=== PATIENT | male | born 1950 | race Caucasian/White ===

== ENCOUNTER → 2023-07-17 | Outpatient (REF) | payer MEDICARE, MEDICAID, SELFPAY ==
--- OUTSIDE RECORDS SUMMARY | 2023-07-17 05:06 | XMS RPT_ITS | CCD ---
Author Name Unknown Address [address] [place] [address] Organization [facility] Care Team Providers Care Director Medical Safety Name Role Phone WALKER LONGO Unavailable Unavailable WALKER LONGO Unavailable Unavailable NIDIA GARCIA Unavailable Unavailable Unavailable Primary Care Provider SIERRA Covington Referring Unavailable SIERRA HAY Admitting Unavailable NEDRA WHITE Consulting Unavailable NICKIE FAGAN Attending Unavailable Allergies Allergy Classification Reported Allergen(s) Allergy Type Date of Onset Reaction(s) Facility (1 source) aminolevulinic acid Drug Allergy [facility] Repository (1 source) rescinnamine Drug Allergy [facility] Medications Current Medications Medication Drug Class(es) Dates Sig (Normalized) Sig (Original) folic acid 1 mg oral tablet (4 sources) Start: 06-15-2023 End: 07-01-2024 take 1 tablet by mouth once daily folic acid (Folvite) 1 MG tablet Take 1 tablet (1 mg) by mouth daily. 0 07/02/2023 07/01/2024 Active ibuprofen 600 mg oral tablet (12 sources) Nonsteroidal Anti-inflammatory Drug Start: 07-02-2023 End: 07-12-2023 take 1 tablet by mouth every six hours as needed for headache ibuprofen 600 MG tablet Take 1 tablet (600 mg) by mouth every 6 hours as needed for headaches for up to 10 days. 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, in remission] Onset: 06-15-2023 06-15-2023 Chronic Headache, including migraine (1 source) Headache; Translations: [HEADACHE] Onset: 01-10-2018 Episodic Malaise and fatigue (4 sources) Asthenia; Translations: [Other malaise] Onset: 06-15-2023 06-15-2023 Episodic Other nervous system disorders (4 sources) Metabolic encephalopathy; Translations: [Metabolic encephalopathy] Onset: 06-15-2023 06-15-2023 Chronic Other nervous system disorders (6 sources) Impaired cognition; Translations: [Other symptoms and signs involving cognitive functions and awareness] Onset: 06-15-2023 06-15-2023 Episodic Other nervous system disorders (2 sources) Other symptoms and signs involving cognitive functions and awareness; Translations: [Other symptoms and signs involving cognitive functions and awareness] Onset: 06-13-2023 Episodic Other upper respiratory infections (1 source) Chronic maxillary sinusitis; Translations: [CHRONIC MAXILLARY SINUSITIS] Onset: 01-10-2018 Chronic Residual codes; unclassified (6 sources) Delirium; Translations: [Disorientation, unspecified] Onset: 06-14-2023 06-14-2023 Episodic Residual codes; unclassified (2 sources) Disorientation, unspecified; Translations: [Disorientation, unspecified] Onset: 06-13-2023 Episodic Substance-related disorders (1 source) Nicotine dependence, unspecified, uncomplicated; Translations: [NICOTINE DEPEND UNS UNCOMPLICATED] Onset: 01-10-2018 Chronic Results Test Name Value Interpretation Reference Range Facil ity Vital Signs Date Time Vital Sign Value Performing Clinician Ada fofana 07-02-2023 07:32-0500 Body temperature 97.59 [degF] Elham Estrada DO Work Phone: [facility] [employer] 07-02-2023 07:32-0500 Diastolic blood pressure 82 mm[Hg] Elham Estrada DO Work Phone: [facility] 07-02-2023 07:32-0500 Heart rate 70 /min Elham Estrada DO Work Phone: [facility] 07-02-2023 07:32-0500 Respiratory rate 12 /min Elham Estrada DO Work Phone: [employer] 07-02-2023 07:32-0500 SaO2% (BldA) [Mass fraction] 96 % Elham Estrada DO Work Phone: [employer] 07-02-2023 07:32-0500 Systolic blood pressure 138 mm[Hg] Elham Estrada DO Work Phone: [employer] 06-17-2023 10:00-0500 Body mass index (BMI) [Ratio] 20.08 kg/m2 Elham Estrada DO Work Phone: [employer] 06-17-2023 10:00-0500 Body weight 65.32 kg Elham Estrada DO Work Phone: [employer] 06-17-2023 07:35-0500 Body height 180.3 cm Elham Estrada DO Work Phone: [employer] Encounters Encounter Date Encounter Type Care Provider Facility Start: 06-16-2023 End: 06-16-2023 Evaluation and management of inpatient SIERRA OBI [facility] Start: 06-13-2023 End: 07-02-2023 [facility]: [facility]-13-[facility]23 End: 07-02-2023 Evaluation and management of inpatient Elham Estrada DO Work Phone: [facility] Procedures Date Procedure Procedure Detail Performing Clinician Start: 06-19-2023 Comprehensive metabolic panel Wero hartman MD Work Phone: Start: 06-18-2023 Comprehensive metabolic panel Wero hartman MD Work Phone: Start: 06-17-2023 IR LUMBAR PUNCTURE Kenneth Solo DO Work Phone: Start: 06-17-2023 Cul bact xcpt urine blood/stool aerobic isol Kenneth Solo DO Work Phone: Start: 06-17-2023 Glucose body fluid other than blood Kenneth Solo DO Work Phone: Start: 06-17-2023 Syphilis test non-treponemal antibody qual Kenneth Solo DO Work Phone: Start: 06-17-2023 Comprehensive metabolic panel Wero hartman MD Work Phone: Start: 06-16-2023 Electroencephalogram w/rec awake&drowsy Kenneth Solo DO Work Phone: Start: 06-16-2023 Comprehensive metabolic panel Wero hartman MD Work Phone: Start: 06-15-2023 Mri brain brain stem w/o w/contrast material Kenneth Solo DO Work Phone: Start: 06-15-2023 ETHYL GLUCURONIDE SCREEN, URINE Kenneth Solo DO Work Phone: Start: 06-15-2023 MEDICATION ASSISTED TREATMENT PANEL Kenneth Solo DO Work Phone: Start: 06-15-2023 Urinalysis complete panel - Urine Wero Grant MD Work Phone: Start: 06-15-2023 Urnls dip stick/tablet rgnt auto w/o microscopy Elpidio Sorenson MD Work Phone: Start: 06-15-2023 Assay of ammonia Bradley Millard MD Work Phone: Start: 06-15-2023 Comprehensive metabolic panel Wero hartman MD Work Phone: Start: 06-15-2023 Iaad ia hiv-1 ag w/hiv-1 & hiv-2 antbdy single Kenneth Solo DO Work Phone: Start: 06-15-2023 Syphilis test non-treponemal antibody qual Kenneth Solo DO Work Phone: Start: 06-14-2023 Radiologic examination eye detect foreign body Kenneth Solo DO Work Phone: Start: 06-14-2023 Radiologic exam abdomen 1 view Kenneth kyleieri DO Work Phone: Start: 06-14-2023 Comprehensive metabolic panel Wero hartman MD Work Phone: Start: 06-13-2023 Ct head/brain w/o contrast material Elpidio Sorenson MD Work Phone: Start: 06-13-2023 Blood gases any combination ph pco2 po2 co2 hco3 Elpidio Sorenson MD Work Phone: Start: 06-13-2023 Comprehensive metabolic panel Elpidio Sorenson MD Work Phone: Start: 06-13-2023 Drug test def 1-7 classes Elpidio Sorenson MD Work Phone: Start: 06-13-2023 Radiologic exam chest single view Elpidio Sorenson MD Work Phone: Plan of Treatment Date Care Activity Detail Author Start: 01-18-2023 COVID-19 Vaccine ( season) COVID-19 Vaccine ( season) [facility] Start: 01-18-2023 Influenza vaccination Influenza Vacc ine (#1) [facility] Start: 01-17-2019 Screening for malign ant neoplasm of colon [facility] Start: 2011 RSV Immunization age d 60 or older (1 - 1-dose 60+ series) RSV Immunization aged 60 or older (1 - 1-dose 60+ series) [facility] Start: 11-27-2001 Zoster Vaccines (1 of 2) Zoster Vacc jenelle (1 of 2) [facility] Start: 11-27-1970 DTaP/Tdap/Td Vaccine s (1 - Tdap) DTaP/Tdap/Td Vaccines (1 - Tdap) [facility] Start: 11-27-1970 Hepatitis A Vaccines (1 of 2 - Risk 2-dose series) Hepatitis A Vaccines (1 of 2 - Risk 2-dose series) [facility] Start: 11-27-1969 Hepatitis C screening Hepatitis C Sc reening [facility] Start: 1963 Depression Screening Depression Scre ening [facility] Start: 11-27-1957 Pneumococcal Vaccine : 65+ Years (1 of 2 - PCV) Pneumococcal Vaccine: 65+ Years (1 of 2 - PCV) [facility] Start: 1950 Lipid panel Lipid Panel [facility] Start: 1950 Medicare Advantage A nnual Wellness Visit (AWV) Medicare Advantage Annual Wellness Visit (AWV) [facility] Start: 1950 Screening for malign ant neoplasm of colon [facility] Fungus identified in Unspecified specimen by Culture Fungal Culture Microbiology Pending Discharge 06/17/2023 1:13 PM EST [facility] Work Phone: Immunizations Immunization Date Immunization Notes Care Provider Roberta kuhn 02-02-2021 influenza virus vacc ine, unspecified formulation Elham Estrada DO Work Phone: [facility] Payers Date Payer Category Payer Medicaid [facility] MEDICAID [facility] [employer] MEDICAID ONLY [id number] 2023-Present [address] [place] [address] Medicaid HMO [id number] 2019 Medicare [employer]NA MEDICARE ADVANTAGE [employer] MEDICARE [id number] 2019-Present [address] [address] [place] [address] Medicare HMO [id number] 2019 Medicare [id number] 1958 Unknown [id number] Social History Date Type Detail Facility Tobacco smoking status MOIS Smokes tobacc o daily [facility] History of tobacco use Cigarette Smoker S [facility] Start: 06-13-2023 End: 06-14-2023 History of Social function [facility] Start: 06-13-2023 End: 06-14-2023 Alcohol Use Disorder Identification Test - Consumption [AUDIT-C] [facility] How often to you hav e a drink containing alcohol? Never [facility] How many standard dr inks containing alcohol do you have on a typical day? Patient does not drink [facility] Start: 1950 Sex Assigned At Not on file [facility] Clinical Notes 06-13-2023 to 07-02-2023 Care Coordination - Cass Gallego, MYNOR - 07/02/2023 3:35 PM ESTCare Coordination - MYNOR Barragan - 07/02/2023 3:35 PM ESTCare Coordination - Nahomi Robertson - 07/02/2023 12:36 PM EST Note Date & Type Note Facility 07-02-2023 Note Late entry for 07-02. Referral made to [facility] 07-02-2023 Note Formatting of this n ote might be different from the original. Requested to arrange transport to [facility]. Rashi Buckneryony set up for 3 pm-now 4:30-5 pick up man. Used cot due to delirium on admission, became disoriented at [facility] , cognitive impairment, lacks capacity to make medical decisions, headache of unknown etiology. Updated Ex -Violeta RN, Biomass Technician, [facility] and [facility]. Mcdaniel to contact the building inspector where patient lives to check on rent payments. She will also arrange to take some belongs to the facility. CUSTOMER SERVICE PROFESSIONAL suggested she work with the Mopper at the facility regarding future plans of returning home. Will make a [facility] referral for home assist and potential future Assisted Living. [facility] 07-02-2023 Note Formatting of this n ote might be different from the original. Requested to arrange transport to [facility]. Rashi Julia set up for 3 pm-now 4:30-5 pick up man. Used cot due to delirium on admission, became disoriented at [facility] , cognitive impairment, lacks capacity to make medical decisions, headache of unknown etiology. Updated Ex -KORIN Mcdaniel, Biomass Technician, [facility] and [facility]. Mcdaniel to contact the building inspector where patient lives to check on rent payments. She will also arrange to take some belongs to the facility. CUSTOMER SERVICE PROFESSIONAL suggested she work with the Mopper at the facility regarding future plans of returning home. Will make a [facility] referral for home assist and potential future Assisted Living. [facility] 07-02-2023 Miscellaneous Notes Requested to arrange transport to [facility]. Rashi Dumont set up for 3 pm-now 4:30-5 pick up man. Used cot due to delirium on admission, became disoriented at [facility] , cognitive impairment, lacks capacity to make medical decisions, headache of unknown etiology. Updated Ex -KORIN Mcdaniel, Biomass Technician, [facility] and [facility]. Mcdaniel to contact the building inspector where patient lives to check on rent payments. She will also arrange to take some belongs to the facility. CUSTOMER SERVICE PROFESSIONAL suggested she work with the Mopper at the facility regarding future plans of returning home. Will make a [facility] referral for home assist and potential future Assisted Living. Patient Choice Patient Name: CORY MUELLER Date of : 1950 All Providers Sent Referral Name: [facility] Phone: [phone] Address: [facility] [place] [address] Name: [facility] Phone: [phone] Address: [address] [place] [address] Name: [facility]. Phone: [phone] Address: [address] [place] [address] [facility] Phone: [phone] Address: [address] [place] [address] Name: [facility] Phone: [phone] Address: [address] [place] [address] Name: [facility] Phone: [phone] Address: [address] [place] [address] Name: [facility] Phone: [phone] Address: [address] [place] [address] was entered into [employer] for the [facility]. Discharge med list transmitted to [facility] via [facility] per [facility] request. Chart reviewed. Spoke to patient at bedside re: info that both [facility] and [facility] are able to accept. Patient stated he would prefer [facility]. Facility notified to start auth. Problem: Safety - Adult Goal: Free from fall injury Outcome: Progressing Problem: Neurosensory - Adult Goal: Achieves maximal functionality and self care Outcome: Progressing Problem: Safety - Adult Goal: Free from fall injury Outcome: Adequate for Discharge Problem: Discharge Planning Goal: Discharge to home or other facility with appropriate resources Outcome: Adequate for Discharge Referral placed to [facility] via [facility] per [facility] request. Await review and response regarding ability to accept. TCC notified. Received responses in [facility], [facility] and [facility] are not able to accept. Spoke to patient at bedside and reviewed list. He would like referrals to [facility] Alyssa Ibarra, [facility]. [facility] tasked to place referrals. Problem: Safety - Adult Goal: Free from fall injury Outcome: Progressing Problem: Discharge Planning Goal: Discharge to home or other facility with appropriate resources Outcome: Progressing Problem: Neurosensory - Adult Goal: Achieves stable or improved neurological status Outcome: Progressing Goal: Achieves maximal functionality and self care Outcome: Progressing Problem: Metabolic/Fluid and Electrolytes - Adult Goal: Glucose maintained within prescribed range Outcome: Progressing Problem: Hematologic - Adult Goal: Maintains hematologic stability Outcome: Progressing Referral placed to [facility] per [facility] request. Await review and response regarding ability to accept. TCC notified. Provided patient at bedside a choice list. Discussed with patient need for facility with special care for patients with forgetfulness. He agreed and stated that he would prefer to go to a facility in the [facility]. We reviewed the list and he would like referrals to [facility], [facility]. [facility] tasked to place referrals. VM left with ex-, CHAYO Mcdaniel to discuss facility choices for placement. Left VM this AM to ex- and HCPOA to discuss discuss discharge planning. Problem: Safety - Adult Goal: Free from fall injury Outcome: Progressing Problem: Discharge Planning Goal: Discharge to home or other facility with appropriate resources Outcome: Progressing Spoke to patient at bedside to discuss re: placement in a facility at discharge. Patient stated that he would rather go home to his apartment. After more discussion , he agreed that at this point it may be a safe option 2/2 his forgetfulness. He stated that he would agree to have his ex- Violeta assist him with locations if she would be willing. Left VM with Violeta to discuss. notified of this conversation. Met with patient. He stated he still wanted to name his ex -Violeta Mueller as his HCPOA. Patient completed paperwork with my assistance and explanation of what wording means on the form. Will make copies for patient's chart and provide him the original and copy for Violeta . Will follow. Chart reviewed. Patient is medically stable for discharge however, geriatrics deemed patient lacks decision making capacity for discharge. Per SW note, patient ex- is willing to become patient HCPOA (patient choice) however not the guardian. Patient may need SEE completed for guardianship for placement if med team does not feel patient can discharge home safely. At present , I have been unable to set up home PCP visits. Per med team they will follow patient if discharges home for C. SW and TCC to continue to follow. The patient is Moderately Stable - Low risk of patient condition declining or worsening The patient's goals for the shift include remain safe The clinical goals for the shift include remain safe Problem: Safety - Adult Goal: Free from fall injury Outcome: Progressing Problem: Discharge Planning Goal: Discharge to home or other facility with appropriate resources Outcome: Progressing Contacted ex -Violeta Mueller regarding agreeing to be patient's HCPOA if patient still wanted to name her. She is willing although unwilling to apply for Guardianship. She is also unable to provide ongoing supervision and assistance to patient if returns to his apartment. She doubts patient would agree to ecf placement. Violeta reports patient does have a [id number] lives with patient's sister- Gabriela although they do not get along, have not seen each other for a year and patient denies Sandro is his son. Will ask patient if wants to name Violeta as his HCPOA and if so can assist with paperwork. Will follow. Rn Psychiatric following case for Discharge Needs. Spoke to Dr. Fagan in office today. She stated that [facility] would likely be able to follow patient in the community until a PCP can be established through home visits. Adam Mcguire, tasked in careport with this information so that patient can have HHC at discharge. I placed calls to multiple home visit companies: -[facility] [employer] at [phone] -unable to accept, does not take his insurance -[facility]: [phone] -left -[facility] at [phone] -patient lives out of area/ provided me with number [phone] -spoke to Violeta at above number, who stated patient needs a provider to qualify and he is out of her [place] she transferred me to [facility] to see if they would make an exception to see. Spoke to Gilda who stated an exception to provider rule is unlikely but provided me with number [phone] and stated should talk to Sierra Avendano, the assistant cross country coach. -[facility] [facility] at [phone] -spoke to Violeta. She stated they are at capacity and on an 8 week wait list. I provided her with patient information and Gabriela Mueller's number (sister) for contact if and when they may be able to accept. Patient did not have a phone number in his chart. Number to call and inquire about set up, place on list is [phone]. Chart reviewed. Geriatric MD to see today to assess capacity. Will attempt home visit with new PCP if discharged home. Patient will not be able to have HHC until a PCP is established. Will have SW make DH referral if patient discharged home as well as APS referral if recommended. TCC and SW to continue to follow. Updated patient that his sister is willing to be his HCPOA. He does not want to name her,likely since he can not stay with her he does not want her into his buisiness. Will follow. Chart reviewed. Per SW, patient is unable to move in with his sister however, she is agreeable to being the HCPOA. SW intends to complete. I spoke to patient at bedside about housing. He stated that he would agree to return to his apartment. I discussed with him setting up house calls for his PCP. He agrees. Placed call to [facility] and left VM to set up home visits. TCC and SW to continue to follow Also spoke with sister-Gabriela regarding HCPOA-she is willing. Did explain what all that means and she would be the contact in the future regarding medical issues. Will work with patient on paperwork. Contacted sister- Gabriela Mueller-[phone]. She states she and family have not seen patient in many years. Patient just stopped conversing with them years ago. Patient unable to stay with Gabriela as her grandson-supposedly patient's son lives with her and they would never get along. Gabriela stated ex - Violeta Mueller-(number listed in contacts) was to visit patient at some point. No family even knew patient was in the hospital. Per Violeta, patient has lived in his apartment for years. Sister acknowledges patient uses the bus or walks-has no car. Sister will not be visiting has had recent covid. She does not know why patient has broken ties with family years ago. Will follow. The patient is Moderately Stable - Low risk of patient condition declining or worsening The patient's goals for the shift include remain safe The clinical goals for the shift include remain safe Problem: Safety - Adult Goal: Free from fall injury Outcome: Progressing Problem: Discharge Planning Goal: Discharge to home or other facility with appropriate resources Outcome: Progressing Problem: Problem Interventions Goal: Assess Nutritional Intake Outcome: Progressing Social Work consulted for housing- patient kicked out of his apartment. Reviewed chart, met with patient to discuss. Patient states he was kicked out of his apartment-[facility] in [place] for smoking in his apartment. CUSTOMER SERVICE PROFESSIONAL contacted [employer]-left message. Call received back from Yudith landa to the building inspector-Saloni Nance. Yudith stated patient is not kicked out, only received a warning about smoking in his apartment . Patient states he does not like it there-too many rules and wants to move in with his sister-Gabriela. Patient states Gabriela is planning to visit him today or tomorrow. Will follow and speak with sister tomorrow as well regarding the option of patient moving in with her. Patient to discuss with this with her. Will follow. MD entered room noting that patient is medically stable for discharge. Patient possibly homeless and ? Lacks capacity per MD. Notified SW to verify if patient can return to his apartment. MD to discuss with geriatrics an assessment for capacity to determine if patient will need medical decision maker /guardianship for placement or alternate plan ( if he has capacity) for discharge, ie homeless senior care, medicaid for ECF. TCC to continue to follow. Interventional Radiology Brief Postprocedure Note Procedure: IR lumbar puncture Preprocedure Diagnosis: AMS with unknown cause Postprocedure Diagnosis: no change Staff: Staff Role Emily Irvin, digital marketing specialist Nurse Abraham Deng MD Radiologist Henry Crow, RT (R) Director Of Bands RT Nahid (R) Director Of Bands Description of procedure: fluoroscopically guided lumbar puncture was performed Estimated Blood Loss: Minimal Medications Medications (Filter: Administrations occurring from 1358 to 1358 on 06/17/23) As of 06/17/23 1358 None Specimens 12 mL of colorless CSF were obtained Findings: thecal sac accessed at the L3-L4 level Plan: routine postop care Complications: None Anesthesia: local See detailed result report with images in PACS. The patient tolerated the procedure well without incident or complication and is in stable condition. Abraham Deng MD Interventional Radiology Pager: Chart reviewed. Patient with increased confusion and COLLIER. +Rx for possible meningitis, LP pending. Patient is green slipped. Geriatrics consulted for delirium. PT recommending home independently. Patient may need decision maker and placement if unable to care for self. TCC to continue to follow. Care Managment Initial Assessment Date: 06/14/2023 Patient Name: Cory Mueller : 1950 Patient Information Source of Information: Patient Cognition/Language: WFL - Within Functional Limits, Other (Comment) (? mild confusion new or chronic) Permission given to speak with patient door to door sales representative/caregiver as indicated: (no EC noted. Patient did state that he has a sister Gabriela in [place] and another sister in [place]) Confirmation of Payer with patient/family: Yes Payer Name: [employer] Medicare/U[employer] mycare- medicaid only : No Confirmation of Primary Care Physician: No PCP Seen in last 2 years?: (n/a) Primary Caregiver: Self If assistance needed, confirmed caregiver ready, willing and able to care for patient at discharge: No Confirmed with: Living Arrangements Current Residence: Apartment Number of Floors 1 Number of Entry Steps: (elevator) Bed/Bath Levels: Both first floor Lives with: Alone Support Systems: None Activities of Daily Living Ambulation: Independent Bathing/Dressing: Independent Elimination/Continence/Toileting: Independent Feeding: Independent Who Assists with Activities of Daily Living: Instrumental Activities of Daily Living Prescription Coverage: Yes (patient states he does not take any medications) Pharmacy Used: Medication Management: (n/a) Transportation/Shopping: Independent Transportation Mode: Public transportation (patient states he primarily walks) Needs Assistance with Transportation at Discharge: Yes Meal Preparation: Independent Laundry/Cleaning: Independent Finances/Bill Paying: Independent Communication: Independent Types of Care Services/Equipment Utilized Patient's Goal/Discharge Plan Patient expects to be discharged to: home Discharge Planning Actions: Continue to follow Patient's Choice Rights and [employer] and Collaborative Relationships Disclosed as Indicated for Post-Acute Care: NA Interdisciplinary Team Engagement: Geriatric Assessment Social Work Referral for: Additional Information: Introduced self and role to patient via bedside. Patient admitted for confusion, wandering in the community. Geriatrics consulted. MRI pending. Anticipate discharge in 1-2 days pending medical stability. Patient will need assistance with transport home. Stefanie Lipscomb RN documented in this encounter [facility] 07-02-2023 Note Formatting of this n ote might be different from the original. Patient Choice Patient Name: CORY MUELLER Date of : 1950 All Providers Sent Referral Name: Rosalba Feliciano Phone: [phone] Address: [address] [place] [address] Name: [facility] Phone: [phone] Address: [address] [place] [address] Name: [facility] Phone: [phone] Address: [address] [place] [address] Name: [facility] Phone: [phone] Address: [facility] [place] [address] Name: [facility] Phone: [phone] Address: [address] [address] Name: [facility] Phone: [phone] Address: [address] [facility], [address] [place] [address] Name: [facility] Phone: [phone] Address: [address] [place] [address] [facility] 07-02-2023 Note Formatting of this n ote might be different from the original. Patient Choice Patient Name: CORY MUELLER Date of : 1950 All Providers Sent Referral Name: Rosalba Feliciano Phone: [phone] Address: [address] [place], [place] [id number] Name: [facility] Phone: [phone] Address: [address] [place] [address] Name: [facility] Phone: [phone] Address: [address] [place] [address] Name: [facility] Phone: [phone] Address: [facility] [place] [address] Name: [facility] Phone: [phone] Address: [facility] '[place] [address] Name: [facility] Phone: [phone] Address: [address] [facility], [address] [place] [address] Name: [facility] Phone: [phone] Address: [address] [place] [address] [facility] 07-02-2023 History of Presen t illness Narrative Discharge instructions printed and placed in packet. Patient has no IV. Report called to [facility]. Transport scheduled to come around 1500. Med Team Progress Note Cory Mueller : 1950(72 y.o.) Date: July 02, 2023 Med Team: A Attending: Dr. Fagan Chief Complaint: Confusion and decreased memory Subjective: - Overnight, patient had complaints of headache similar to what he has been experiencing during the day as well as insomnia. Patient given one dose of excedrin for his headache and Seroquel for insomnia - Currently, patient resting comfortably in bed. Continues to report tension like headache that is 6/10 in severity and is stabbing in nature. Patient states the Excedrin helped with his symptoms last night. Continues to endorse poor sleep as well. Still reports good PO intake and denies any acute neurological changes that would be indicative of worsening decline. PRN meds used in last 24hrs: ibuprofen 600 mg PO Review of Systems Constitutional: Negative for chills and fever. Eyes: Negative for photophobia and visual disturbance. Respiratory: Negative for cough, chest tightness and wheezing. Cardiovascular: Negative for chest pain. Gastrointestinal: Negative for abdominal pain, nausea and vomiting. Musculoskeletal: Negative for neck pain and neck stiffness. Neurological: Positive for headaches. Negative for light-headedness. Scheduled Meds:folic acid, 1 mg, Oral, Daily Lidocaine, 1 patch, TransDERmal, Daily melatonin, 5 mg, Oral, Nightly thiamine, 100 mg, Oral, Daily Continuous Infusions: Objective: BP 138/82 (BP Location: Right arm, Patient Position: Lying) Pulse 70 Temp 36.4 C (97.6 F) (Temporal) Resp 12 Ht 5' 11 (1.803 m) Comment: per chart, pt est 6' Wt 144 lb (65.3 kg) SpO2 96% BMI 20.08 kg/m Physical Exam Vitals reviewed. Constitutional: Appearance: Normal appearance. HENT: Head: Normocephalic and atraumatic. Mouth/Throat: Mouth: Mucous membranes are moist. Eyes: General: No scleral icterus. Cardiovascular: Rate and Rhythm: Normal rate and regular rhythm. Heart sounds: No murmur heard. Pulmonary: Effort: Pulmonary effort is normal. No respiratory distress. Breath sounds: No wheezing or rales. Abdominal: General: Abdomen is flat. Bowel sounds are normal. Musculoskeletal: Cervical back: Normal range of motion. Right lower leg: No edema. Left lower leg: No edema. Skin: General: Skin is warm. Neurological: Mental Status: He is alert. Comments: Oriented to person, place, and year today Psychiatric: Mood and Affect: Mood normal. [facility] within last 24 hours Assessment and Plan: Delirium Cognitive impairment - MR brain on 06/15 showed diminished cerebral volume and evidence of chronic white matter small vessel ischemic change without acute intracranial abnormality - EEG 06/16 showed no abnormalities - MMSE 20 on initial evaluation - Vitamin D levels low at 27; otherwise metabolic workup unremarkable - Urine drugs screen positive for THC. Ethyl glucuronide negative. - UA and urine culture show no abnormalities - RPR, VDRL, and HIV antibody both negative - Thiamine 1 mg tablet PO daily - Scheduled nightly melatonin - Delirium and fall precautions in place - Green slipped Lack of capacity - patient does not have capacity per discharge plans per Geriatrics - defer disposition decision making to surrogate decision maker - Ex- is HCPOA - Disposition still in progress Headache of unknown etiology- suspect tension COLLIER based on pt's description of band-like pressure, stable - Patient has been endorsing ongoing headache for the past few days - LP performed 06/17. Meningitis/encephalitis PCR negative. Spinal fluids studies show no abnormalities. - CTH without contrast 06/13/2023 with no evidence acute ICH - PRN 600 mg ibuprofen - Lidocaine patch daily Debility - PT recommending home independently - OT recommending 24 hour supervision or assist - Currently working on arranging safe home going plain with TCC, SW, and geriatrics team - Currently pending placement. Assistance appreciated by CM. Will continue to monitor Insomnia - Patient continues to have insomnia refractory to melatonin - Melatonin 5 mg nightly - Trazodone 50 mg for insomnia - Enforce adequate sleep hygiene - Limit light disturbance between 6525-6532 - Minimize auditory stimulation - Open blinds/turn on lights during the day - Continue to monitor Disposition: Medically stable for discharge. Prior authorization pending for certain facilities. Will follow. - Goals of Care: FULL CODE - DVT Prophylaxis: SCD's or Sequential Compression Device - GI Prophylaxis: Not Indicated - Diet: General Associated attestation - Nickie Fagan DO - 07/02/2023 4:22 PM EST I saw and evaluated the patient. I agree with the findings and plan of care as documented in the resident's note, except as noted in Green text. Patient seen and examined personally (Date of Sevice: 07/02/23) -d/w TCC -reviewed w/pt plan for discharge to SNF today 7AM-5PM: contact resident on [facility] Med A (find by hovering over attending's name on left side of patient's chart) 5PM-7AM: contact AI3 res Was paged by nursing regarding patient's headache. I examined the patient at bedside. Patient resting comfortably on bed, NAD. Endorses 8/10 constant stabbing pain and describes his pain a tight band around his head. Denies any lightheadedness, dizziness, vision changes and light sensitivity. States there are no preceding and exacerbating factors. His headache has been ongoing for couple days now. Had CTH with no acute intracranial processes and LP studies were unremarkable. I discussed trying excedrin with the patient. Patient agreeable with the plan. 1 x dose of excedrin ordered. Med Team Progress Note Cory Perla Julien : 1950(72 y.o.) Date: July 01, 2023 Med Team: Rasta Attending: Dr. Fagan Chief Complaint: Confusion and decreased memory Subjective: - No acute events overnight. - Currently, patient resting comfortably in bed. Continues to endorse headache that is 6/10 in severity and banding in distribution. Reports sleeping somewhat better in the last 24 hours and is able to recall which teams were in the super bowl yesterday. No other complaints were noted on examination PRN meds used in last 24hrs: Ibuprofen 600 mg PO Review of Systems Constitutional: Negative for chills and fever. Cardiovascular: Negative for chest pain. Gastrointestinal: Negative for abdominal pain. Musculoskeletal: Negative for neck pain and neck stiffness. Neurological: Positive for headaches. Negative for light-headedness. Scheduled Meds:folic acid, 1 mg, Oral, Daily Lidocaine, 1 patch, TransDERmal, Daily melatonin, 5 mg, Oral, Nightly thiamine, 100 mg, Oral, Daily Continuous Infusions: Objective: BP 141/69 (BP Location: Left arm, Patient Position: Lying) Pulse 67 Temp 36.7 C (98.1 F) (Temporal) Resp 20 Ht 5' 11 (1.803 m) Comment: per chart, pt est 6' Wt 144 lb (65.3 kg) SpO2 96% BMI 20.08 kg/m Physical Exam Vitals reviewed. Constitutional: Appearance: Normal appearance. HENT: Head: Normocephalic and atraumatic. Mouth/Throat: Mouth: Mucous membranes are moist. Eyes: General: No scleral icterus. Cardiovascular: Rate and Rhythm: Normal rate and regular rhythm. Heart sounds: No murmur heard. Pulmonary: Effort: Pulmonary effort is normal. No respiratory distress. Breath sounds: No wheezing or rales. Abdominal: General: Abdomen is flat. Bowel sounds are normal. Musculoskeletal: Cervical back: Normal range of motion. Right lower leg: No edema. Left lower leg: No edema. Skin: General: Skin is warm. Neurological: Mental Status: He is alert. Comments: Oriented to person, place, and year today Psychiatric: Mood and Affect: Mood normal. [facility] Labs within last 24 hours Assessment and Plan: Delirium Cognitive impairment - MR brain on 06/15 showed diminished cerebral volume and evidence of chronic white matter small vessel ischemic change without acute intracranial abnormality - EEG 06/16 showed no abnormalities - MMSE 20 on initial evaluation - Vitamin D levels low at 27; otherwise metabolic workup unremarkable - Urine drugs screen positive for THC. Ethyl glucuronide negative. - UA and urine culture show no abnormalities - RPR, VDRL, and HIV antibody both negative - Thiamine 1 mg tablet PO daily - Scheduled nightly melatonin - Delirium and fall precautions in place - Green slipped Lack of capacity - patient does not have capacity per discharge plans per Geriatrics - defer disposition decision making to surrogate decision maker - Ex- is HCPOA - Disposition still in progress Headache of unknown etiology- suspect tension COLLIER based on pt's description of band-like pressure, stable - Patient has been endorsing ongoing headache for the past few days - LP performed 06/17. Meningitis/encephalitis PCR negative. Spinal fluids studies show no abnormalities. - CTH without contrast 06/13/2023 with no evidence acute ICH - PRN 600 mg ibuprofen - Lidocaine patch daily Debility - PT recommending home independently - OT recommending 24 hour supervision or assist - Currently working on arranging safe home going plain with TCC, SW, and geriatrics team - Currently pending placement. Assistance appreciated by CM. Will continue to monitor Insomnia - Experienced episode of insomnia on 06/27/23 refractory to sleep hygiene and melatonin - Received 1 dose of Remeron - Melatonin 5 mg nightly - Will continue to monitor - Consider adding on Seroquel if persisting insomnia refractory to melatonin and sleep hygiene - Goals of Care: FULL CODE - DVT Prophylaxis: SCD's or Sequential Compression Device - GI Prophylaxis: Not Indicated - Diet: General Associated attestation - Nickie Fagan DO - 07/01/2023 4:59 PM EST I saw and evaluated the patient. I agree with the findings and plan of care as documented in the resident's note, except as noted in Green text. Patient seen and examined personally during bedside teaching rounds (Date of Service: 07/01/23) -reviewed w/him possible SNF facilities. He communicates just wants to be somewhere in [place] area. Though he does not have decisional capacity regarding is ability to safely live independently in community I do think we should continue to consider his preferences regarding SNF. -D/W TCC 7AM-5PM: contact resident on [facility] Med A (find by hovering over attending's name on left side of patient's chart) 5PM-7AM: contact AI3 res Patient has had trouble sleeping since admission, which is becoming worse/more bothersome. Patient received his scheduled 5 mg of Melatonin, as well as the PRN 3 mg of Melatonin. Patient called nurse in around 4:30 am, stating he has not slept at all and is requesting a different medication to help. Dr Solo was notified via secure chat. A one-time dose of 5 mg of Melatonin was given. Naomy Morse RN Nutrition update completed. Chart reviewed. Patient to be monitored and followed by the diet fingernail technician. Med Team Progress Note Cory Perla Julien : 1950(72 y.o.) Date: June 30, 2023 Med Team: A Attending: Dr. Fagan Chief Complaint: confusion and decreased memory Subjective: Overnight events: NAEON Patient seen this morning mentioned continued bilateral band-like bilateral headache. The pain is chronic and dull and rates it at a 6.5-7/10. Denies vision changes, or any other pain, Review of Systems Constitutional: Negative for chills and fever. Cardiovascular: Negative for chest pain. Gastrointestinal: Negative for abdominal pain. Musculoskeletal: Negative for neck pain and neck stiffness. Neurological: Positive for headaches. Negative for light-headedness. Scheduled Meds:folic acid, 1 mg, Oral, Daily Lidocaine, 1 patch, TransDERmal, Daily melatonin, 5 mg, Oral, Nightly thiamine, 100 mg, Oral, Daily Continuous Infusions: PRN meds used in last 24hrs: None Objective: Last Vitals: BP MAP 124/71 (06/30/23721) 89 (06/30/23721) Arterial BP MAP Temp 36.2 C (97.2 F) (06/30/23721) Pulse 61 (06/30/23721) Resp 20 (06/30/23721) SpO2 97 % (06/30/23721) Weight 144 lb (65.3 kg) (06/17/23 1000) BMI Body mass index is 20.08 kg/m . Oxygen Delivery: Physical Exam Vitals reviewed. Constitutional: Appearance: Normal appearance. HENT: Head: Normocephalic and atraumatic. Mouth/Throat: Mouth: Mucous membranes are moist. Eyes: General: No scleral icterus. Cardiovascular: Rate and Rhythm: Normal rate and regular rhythm. Heart sounds: No murmur heard. Pulmonary: Effort: Pulmonary effort is normal. No respiratory distress. Breath sounds: No wheezing or rales. Abdominal: General: Abdomen is flat. Bowel sounds are normal. Musculoskeletal: Cervical back: Normal range of motion. Right lower leg: No edema. Left lower leg: No edema. Skin: General: Skin is warm. Neurological: Mental Status: He is alert. Comments: Oriented to person, place, and year today Psychiatric: Mood and Affect: Mood normal. Imaging: No new imaging [facility] within last 24 hours- No new labs Assessment and Plan: Disposition: Patient POA difficult to contact. Presented patients with options and assisted him in selection while keeping his best interests in mind. Referrals sent. Medically clear for discharge for many days at this point. Awaiting placement currently. Delirium Cognitive impairment - MR brain on 06/15 showed diminished cerebral volume and evidence of chronic white matter small vessel ischemic change without acute intracranial abnormality - EEG 06/16 showed no abnormalities - MMSE 20 on initial evaluation - Vitamin D levels low at 27; otherwise metabolic workup unremarkable - Urine drugs screen positive for THC. Ethyl glucuronide negative. - UA and urine culture show no abnormalities - RPR, VDRL, and HIV antibody both negative - Thiamine 1 mg tablet PO daily - Scheduled nightly melatonin - Delirium and fall precautions in place - Green slipped Lack of capacity - patient does not have capacity per discharge plans per Geriatrics - defer disposition decision making to surrogate decision maker - Ex- is HCPOA - Disposition still in progress Headache of unknown etiology - suspect tension COLLIER based on pt's description of band-like pressure, stable - LP performed 06/17. Meningitis/encephalitis PCR negative. Spinal fluids studies show no abnormalities. - CTH without contrast 06/13/2023 with no evidence acute ICH - Concern for rebound headache secondary to chronic tylenol use, discontinued with no signs of worsened COLLIER - Lidocaine patch daily Debility - PT recommending home independently - OT recommending 24 hour supervision or assist - Currently working on arranging safe home going plain with TCC, SW, and geriatrics team - Currently pending placement. Assistance appreciated by CM and attending. Will continue to monitor Insomnia - Melatonin 5 mg nightly - Goals of Care: FULL CODE - DVT Prophylaxis: SCD's or Sequential Compression Device - GI Prophylaxis: Not Indicated - Diet: General Disposition: Continue admission to [facility] pending acceptance to SNF Associated attestation - Nickie Fagan DO - 06/30/2023 12:56 PM EST I saw and evaluated the patient. I agree with the findings and plan of care as documented in the resident's note, except as noted in Green text. Patient seen and examined personally during bedside teaching rounds (Date of Service: 06/30/23) -no new complaints. 7AM-5PM: contact resident on [facility] Med A (find by hovering over attending's name on left side of patient's chart) 5PM-7AM: contact AI3 res Med Team Progress Note Cory Mueller : 1950(72 y.o.) Date: June 29, 2023 Med Team: A Attending: Dr. Fagan Chief Complaint: confusion and decreased memory Subjective: Overnight events: NAEOVN Patient seen this morning mentioned continued bilateral band-like bilateral headache. The pain is chronic and dull and rates it at a 7.0 today (does not remember he rated it yesterday at a 6.5). Also continues to endorse sleep difficulties. Mentions ongoing photophobia associated with the headache. COLLIER is not worsened with exertion and no neck pain. Review of Systems Constitutional: Negative for chills and fever. Eyes: Positive for photophobia. Musculoskeletal: Negative for neck pain and neck stiffness. Neurological: Positive for headaches. Negative for light-headedness. Scheduled Meds:folic acid, 1 mg, Oral, Daily Lidocaine, 1 patch, TransDERmal, Daily melatonin, 5 mg, Oral, Nightly thiamine, 100 mg, Oral, Daily Continuous Infusions: PRN meds used in last 24hrs: None Objective: Last Vitals: BP MAP 158/90 (06/29/23716) 113 (06/29/23716) Arterial BP MAP Temp 36.7 C (98 F) (06/29/23716) Pulse 71 (06/29/23716) Resp 20 (06/29/23716) SpO2 97 % (06/29/23716) Weight 144 lb (65.3 kg) (06/17/23 1000) BMI Body mass index is 20.08 kg/m . Oxygen Delivery: Physical Exam Vitals reviewed. Constitutional: Appearance: Normal appearance. HENT: Head: Normocephalic and atraumatic. Mouth/Throat: Mouth: Mucous membranes are moist. Eyes: General: No scleral icterus. Cardiovascular: Rate and Rhythm: Normal rate and regular rhythm. Heart sounds: No murmur heard. Pulmonary: Effort: Pulmonary effort is normal. No respiratory distress. Breath sounds: No wheezing or rales. Abdominal: General: Abdomen is flat. Bowel sounds are normal. Musculoskeletal: Cervical back: Normal range of motion. Right lower leg: No edema. Left lower leg: No edema. Skin: General: Skin is warm. Neurological: Mental Status: He is alert. Comments: Oriented to person, place, and year today Psychiatric: Mood and Affect: Mood normal. Imaging: No new imaging [facility] within last 24 hours- No new labs Assessment and Plan: Disposition: Patient POA difficult to contact. Presented patients with options and assisted him in selection while keeping his best interests in mind. Selection to facilities made yesterday with assistance of Dr. Fagan and MONSTER Lipscomb. Awaiting placement currently. Delirium Cognitive impairment - MR brain on 06/15 showed diminished cerebral volume and evidence of chronic white matter small vessel ischemic change without acute intracranial abnormality - EEG 06/16 showed no abnormalities - MMSE 20 on initial evaluation - Vitamin D levels low at 27; otherwise metabolic workup unremarkable - Urine drugs screen positive for THC. Ethyl glucuronide negative. - UA and urine culture show no abnormalities - RPR, VDRL, and HIV antibody both negative - Thiamine 1 mg tablet PO daily - Scheduled nightly melatonin - Delirium and fall precautions in place - Green slipped Lack of capacity - patient does not have capacity per discharge plans per Geriatrics - defer disposition decision making to surrogate decision maker - Ex- is HCPOA - Disposition still in progress Headache of unknown etiology- suspect tension COLLIER based on pt's description of band-like pressure, stable - Patient has been endorsing ongoing headache for the past few days - LP performed 06/17. Meningitis/encephalitis PCR negative. Spinal fluids studies show no abnormalities. - CTH without contrast 06/13/2023 with no evidence acute ICH - Concern for rebound headache secondary to chronic tylenol use, discontinued with no signs of worsened COLLIER - Lidocaine patch daily Debility - PT recommending home independently - OT recommending 24 hour supervision or assist - Currently working on arranging safe home going plain with TCC, SW, and geriatrics team - Currently pending placement. Assistance appreciated by CM and attending. Will continue to monitor Insomnia - Experienced episode of insomnia on 06/27/23 refractory to sleep hygiene and melatonin - Received 1 dose of Remeron - Melatonin 5 mg nightly - Will continue to monitor - Goals of Care: FULL CODE - DVT Prophylaxis: SCD's or Sequential Compression Device - GI Prophylaxis: Not Indicated - Diet: General Disposition: Continue admission to F pending acceptance to SNF Associated attestation - Nickie Fagan DO - 06/29/2023 1:29 PM EST I saw and evaluated the patient. I agree with the findings and plan of care as documented in the resident's note, except as noted in Green text. Patient seen and examined personally during bedside teaching rounds (Date of Service: 06/29/23) -no new complaints 7AM-5PM: contact resident on [facility] Med A (find by hovering over attending's name on left side of patient's chart) 5PM-7AM: contact AI3 res Med Team Progress Note Cory Mueller : 1950(72 y.o.) Date: June 28, 2023 Med Team: Rasta Attending: Dr. Fagan Chief Complaint: Confusion and decreased memory Subjective: - No acute events overnight. - Currently, patient is resting comfortably in bed. Denies recollection of selecting possible placement for SNF yesterday but seems satisfied with staying close to the [facility]. Patient continues to endorse a headache that is 7/10 in severity and is stabbing in quality. He is endorsing decreased sleep as well and states he only slept a couple hours last night. He denies vision changes, dizziness, or light-headedness. No other complaints noted on examination PRN meds used in last 24hrs: none Review of Systems Constitutional: Negative for appetite change, fatigue and fever. Eyes: Negative for photophobia, pain and visual disturbance. Respiratory: Negative for cough, shortness of breath and wheezing. Cardiovascular: Negative for chest pain and palpitations. Gastrointestinal: Negative for abdominal distention, abdominal pain and nausea. Neurological: Positive for headaches. Negative for dizziness and light-headedness. Scheduled Meds:acetaminophen, 1,000 mg, Oral, Daily folic acid, 1 mg, Oral, Daily Lidocaine, 1 patch, TransDERmal, Daily melatonin, 5 mg, Oral, Nightly thiamine, 100 mg, Oral, Daily Continuous Infusions: Objective: BP 153/90 (BP Location: Right arm, Patient Position: Lying) Pulse 69 Temp 36.8 C (98.2 F) (Temporal) Resp 20 Ht 5' 11 (1.803 m) Comment: per chart, pt est 6' Wt 144 lb (65.3 kg) SpO2 96% BMI 20.08 kg/m Physical Exam Constitutional: General: He is not in acute distress. Appearance: Normal appearance. He is not ill-appearing or toxic-appearing. HENT: Head: Normocephalic and atraumatic. Cardiovascular: Rate and Rhythm: Normal rate and regular rhythm. Pulses: Normal pulses. Heart sounds: Normal heart sounds. No murmur heard. No gallop. Pulmonary: Effort: Pulmonary effort is normal. Breath sounds: Normal breath sounds. No wheezing, rhonchi or rales. Abdominal: General: Abdomen is flat. Palpations: Abdomen is soft. Tenderness: There is no abdominal tenderness. There is no guarding. Skin: General: Skin is warm and dry. Neurological: General: No focal deficit present. Mental Status: He is alert. Sensory: No sensory deficit. Comments: A&Ox2 to person and place Psychiatric: Mood and Affect: Mood normal. Select Labs within last 24 hours Assessment and Plan: Delirium Cognitive impairment - MR brain on 06/15 showed diminished cerebral volume and evidence of chronic white matter small vessel ischemic change without acute intracranial abnormality - EEG 06/16 showed no abnormalities - MMSE 20 on initial evaluation - Vitamin D levels low at 27; otherwise metabolic workup unremarkable - Urine drugs screen positive for THC. Ethyl glucuronide negative. - UA and urine culture show no abnormalities - RPR, VDRL, and HIV antibody both negative - Thiamine 1 mg tablet PO daily - Scheduled nightly melatonin - Delirium and fall precautions in place - Green slipped Lack of capacity - patient does not have capacity per discharge plans per Geriatrics - defer disposition decision making to surrogate decision maker - Ex- is HCPOA - Disposition still in progress Headache of unknown etiology- suspect tension COLLIER based on pt's description of band-like pressure - Patient has been endorsing ongoing headache for the past few days - LP performed 06/17. Meningitis/encephalitis PCR negative. Spinal fluids studies show no abnormalities. - CTH without contrast 06/13/2023 with no evidence acute ICH - Concern for rebound headache secondary to chronic tylenol use - Discontinue tylenol and monitor for symptoms - Lidocaine patch daily Debility - PT recommending home independently - OT recommending 24 hour supervision or assist - Currently working on arranging safe home going plain with TCC, SW, and geriatrics team - Currently pending placement. Assistance appreciated by CM and attending. Will continue to monitor Insomnia - Experienced episode of insomnia on 06/27/23 refractory to sleep hygiene and melatonin - Received 1 dose of Remeron - Melatonin 5 mg nightly - Will continue to monitor Disposition: Patient POA difficult to contact. Presented patients with options and assisted him in selection while keeping his best interests in mind. Selection to facilities made yesterday with assistance of Dr. Fagan and [facility]. Awaiting placement currently. - Goals of Care: FULL CODE - DVT Prophylaxis: SCD's or Sequential Compression Device - GI Prophylaxis: Not Indicated - Diet: General Associated attestation - Nickie Fagan DO - 06/28/2023 5:52 PM EST I saw and evaluated the patient. I agree with the findings and plan of care as documented in the resident's note, except as noted in Green text. Patient seen and examined personally during bedside teaching rounds (Date of Service: 06/28/23) 7AM-5PM: contact resident on [facility] Med A (find by hovering over attending's name on left side of patient's chart) 5PM-7AM: contact AI3 res Med Team Progress Note Cory Mueller : 1950(72 y.o.) Date: June 27, 2023 Med Team: A Attending: Dr. Fagan Chief Complaint: Confusion and decreased memory Subjective: - Overnight, patient had been complaining of insomnia that was not abating with melatonin and proper sleep hygiene. Patient received 7.5 mg Remeron which helped him go to sleep. - Currently, patient resting in bed. He endorses about 1-2 hours of sleep last night and continues to endorse headache that is similar in presentation to previous visits. Patient denies any other complaints upon examination. PRN meds used in last 24hrs: melatonin 3 mg PO Tylenol 650 mg PO Review of Systems Constitutional: Negative for appetite change, fatigue and fever. Respiratory: Negative for chest tightness, shortness of breath and wheezing. Cardiovascular: Negative for chest pain and palpitations. Gastrointestinal: Negative for abdominal pain, diarrhea, nausea and vomiting. Genitourinary: Negative for difficulty urinating, dysuria and hematuria. Neurological: Positive for headaches. Scheduled Meds:acetaminophen, 1,000 mg, Oral, Daily folic acid, 1 mg, Oral, Daily Lidocaine, 1 patch, TransDERmal, Daily melatonin, 5 mg, Oral, Nightly thiamine, 100 mg, Oral, Daily Continuous Infusions: Objective: BP 144/88 (BP Location: Right arm, Patient Position: Sitting) Pulse 80 Temp 36.4 C (97.6 F) (Temporal) Resp 20 Ht 5' 11 (1.803 m) Comment: per chart, pt est 6' Wt 144 lb (65.3 kg) SpO2 99% BMI 20.08 kg/m Physical Exam Constitutional: General: He is not in acute distress. Appearance: Normal appearance. He is not ill-appearing or toxic-appearing. HENT: Head: Normocephalic and atraumatic. Cardiovascular: Rate and Rhythm: Normal rate and regular rhythm. Pulses: Normal pulses. Heart sounds: Normal heart sounds. No murmur heard. No gallop. Pulmonary: Effort: Pulmonary effort is normal. Breath sounds: Normal breath sounds. No wheezing, rhonchi or rales. Abdominal: General: Abdomen is flat. Palpations: Abdomen is soft. Tenderness: There is no abdominal tenderness. There is no guarding. Skin: General: Skin is warm and dry. Neurological: General: No focal deficit present. Mental Status: He is alert. Sensory: No sensory deficit. Comments: A&Ox2 to person and place Psychiatric: Mood and Affect: Mood normal. Select Labs within last 24 hours Assessment and Plan: Delirium Cognitive impairment - MR brain on 06/15 showed diminished cerebral volume and evidence of chronic white matter small vessel ischemic change without acute intracranial abnormality - EEG 06/16 showed no abnormalities - MMSE 20 on initial evaluation - Vitamin D levels low at 27; otherwise metabolic workup unremarkable - Urine drugs screen positive for THC. Ethyl glucuronide negative. - UA and urine culture show no abnormalities - RPR, VDRL, and HIV antibody both negative - Thiamine 1 mg tablet PO daily - Scheduled nightly melatonin - Delirium and fall precautions in place - Discontinued daily labs - Green slipped Lack of capacity - patient does not have capacity per discharge plans per Geriatrics - defer disposition decision making to surrogate decision maker - Ex- is HCPOA - Disposition still in progress Headache of unknown etiology- suspect tension COLLIER based on pt's description of band-like pressure - Patient has been endorsing ongoing headache for the past few days - LP performed 06/17. Meningitis/encephalitis PCR negative. Spinal fluids studies show no abnormalities. - CTH without contrast 06/13/2023 with no evidence o - Tylenol 1,000 mg AM - Additional 650 mg tylenol BID for persistent headaches - Lidocaine patch daily Debility - PT recommending home independently - OT recommending 24 hour supervision or assist - Currently working on arranging safe home going plain with TCC, SW, and geriatrics team - Currently pending placement for SNF with POA assisting with process Insomnia - Experienced episode of insomnia on 06/27/23 refractory to sleep hygiene and melatonin - Received 1 dose of Remeron - Melatonin 5 mg nightly - Will continue to monitor Disposition: Patient POA to assist with placement process for patient post-discharge. Still awaiting placement. Difficulty reaching POA with selection process. - Goals of Care: FULL CODE - DVT Prophylaxis: SCD's or Sequential Compression Device - GI Prophylaxis: Not Indicated - Diet: General Associated attestation - Nickie Fagan DO - 06/27/2023 4:48 PM EST I saw and evaluated the patient. I agree with the findings and plan of care as documented in the resident's note, except as noted in Green text. Patient seen and examined personally (Date of Sevice: 06/27/23) -d/w TCC and Dr. White -pt w/no new complaints. Expressed to me interested in facility in [facility]. List at bedside. Though pt has been found to lack capacity for discharge decisions especially in level of care needed I do think we should consider his desire to remain in [facility]. 7AM-5PM: contact resident on [facility] Med A (find by hovering over attending's name on left side of patient's chart) 5PM-7AM: contact AI3 res Med Team Progress Note Cory Mueller : 1950(72 y.o.) Date: June 26, 2023 Med Team: [facility] Attending: Dr. Fagan Chief Complaint: Confusion and decreased memory Subjective: - No acute events overnight. - Currently, he is resting in bed comfortably. Continues to endorse tension like headache in a banding distribution. His symptoms are persisting despite scheduled tylenol. He denies any other neurological symptoms such as blurry vision, decreased coordination, or difficulty of speech and the severity of the headache is consistent as previous days. Reiterated discussion patient had with case management and is still willing to be placed to facility pending POA decision. No other complaints noted on examination. PRN meds used in last 24hrs: tylenol 650 mg PO Review of Systems Constitutional: Negative for appetite change, fatigue and fever. Respiratory: Negative for chest tightness, shortness of breath and wheezing. Cardiovascular: Negative for chest pain and palpitations. Gastrointestinal: Negative for abdominal pain, diarrhea, nausea and vomiting. Genitourinary: Negative for difficulty urinating, dysuria and hematuria. Scheduled Meds:acetaminophen, 1,000 mg, Oral, Daily folic acid, 1 mg, Oral, Daily Lidocaine, 1 patch, TransDERmal, Daily melatonin, 5 mg, Oral, Nightly thiamine, 100 mg, Oral, Daily Continuous Infusions: Objective: BP 131/70 (BP Location: Left arm, Patient Position: Lying) Pulse 65 Temp 36.4 C (97.5 F) (Temporal) Resp 20 Ht 5' 11 (1.803 m) Comment: per chart, pt est 6' Wt 144 lb (65.3 kg) SpO2 93% BMI 20.08 kg/m Physical Exam Constitutional: General: He is not in acute distress. Appearance: Normal appearance. He is not ill-appearing or toxic-appearing. HENT: Head: Normocephalic and atraumatic. Cardiovascular: Rate and Rhythm: Normal rate and regular rhythm. Pulses: Normal pulses. Heart sounds: Normal heart sounds. No murmur heard. No gallop. Pulmonary: Effort: Pulmonary effort is normal. Breath sounds: Normal breath sounds. No wheezing, rhonchi or rales. Abdominal: General: Abdomen is flat. Palpations: Abdomen is soft. Tenderness: There is no abdominal tenderness. There is no guarding. Skin: General: Skin is warm and dry. Neurological: General: No focal deficit present. Mental Status: He is alert. Sensory: No sensory deficit. Comments: A&Ox2 to person and place Psychiatric: Mood and Affect: Mood normal. Select Labs within last 24 hours Assessment and Plan: Delirium Cognitive impairment - MR brain on 06/15 showed diminished cerebral volume and evidence of chronic white matter small vessel ischemic change without acute intracranial abnormality - EEG 06/16 showed no abnormalities - MMSE 20 on initial evaluation - Vitamin D levels low at 27; otherwise metabolic workup unremarkable - Urine drugs screen positive for THC. Ethyl glucuronide negative. - UA and urine culture show no abnormalities - RPR, VDRL, and HIV antibody both negative - Thiamine 1 mg tablet PO daily - Scheduled nightly melatonin - Delirium and fall precautions in place - Discontinued daily labs - Green slipped Lack of capacity - patient does not have capacity per discharge plans per Geriatrics - defer disposition decision making to surrogate decision maker - Ex- is HCPOA - Disposition still in progress Headache of unknown etiology- suspect tension COLLIER based on pt's description of band-like pressure - Patient has been endorsing ongoing headache for the past few days - LP performed 06/17. Meningitis/encephalitis PCR negative. Spinal fluids studies show no abnormalities. - CTH without contrast 06/13/2023 with no evidence o - Tylenol 1,000 mg AM - Additional 650 mg tylenol BID for persistent headaches - Lidocaine patch daily - Will attempt Toradol 15 mg IV with Reglan 10 mg IV to break headache Debility - PT recommending home independently - OT recommending 24 hour supervision or assist - Currently working on arranging safe home going plain with TCC, SW, and geriatrics team - Currently pending placement for SNF with POA assisting with process Disposition: Patient POA to assist with placement process for patient post-discharge. Still awaiting placement - Goals of Care: FULL CODE - DVT Prophylaxis: SCD's or Sequential Compression Device - GI Prophylaxis: Not Indicated - Diet: General Associated attestation - Nickie Fagan DO - 06/26/2023 3:03 PM EST I saw and evaluated the patient. I agree with the findings and plan of care as documented in the resident's note, except as noted in Green text. Patient seen and examined personally during bedside teaching rounds (Date of Service: 06/26/23) -ongoing tension type COLLIER. Agree w/trial COLLIER cocktail to see if can improve symptoms 7AM-5PM: contact resident on [facility] Med A (find by hovering over attending's name on left side of patient's chart) 5PM-7AM: contact AI3 res Nutrition update completed. Chart reviewed. Patient to be monitored and followed by the diet fingernail technician. Med Team Progress Note Cory Mueller : 1950(72 y.o.) Date: June 25, 2023 Med Team: Rasta Attending: Dr. Fagan Chief Complaint: Confusion and decreased memory Subjective: - No acute events overnight. - Currently, patient resting comfortably in bed. Describes vaguely remembering signing paperwork regarding POA process but when asked about specific details about what a POA is he was unable to recall. Patient continues to endorse headache but its hard to assess progression of symptoms day by day given memory impairment PRN meds used in last 24hrs: tylenol 650 mg PO Review of Systems Constitutional: Negative for appetite change, fatigue and fever. Respiratory: Negative for chest tightness, shortness of breath and wheezing. Cardiovascular: Negative for chest pain and palpitations. Gastrointestinal: Negative for abdominal pain, diarrhea, nausea and vomiting. Endocrine: Negative for heat intolerance, polyphagia and polyuria. Genitourinary: Negative for difficulty urinating, dysuria and hematuria. Musculoskeletal: Negative for arthralgias, joint swelling and myalgias. Neurological: Positive for headaches. Patient endorsing tension like headache with banding pain around his head Scheduled Meds:acetaminophen, 1,000 mg, Oral, Daily folic acid, 1 mg, Oral, Daily melatonin, 5 mg, Oral, Nightly thiamine, 100 mg, Oral, Daily Continuous Infusions: Objective: BP 136/79 (BP Location: Right arm, Patient Position: Sitting) Pulse 76 Temp 36.4 C (97.5 F) (Temporal) Resp 18 Ht 5' 11 (1.803 m) Comment: per chart, pt est 6' Wt 144 lb (65.3 kg) SpO2 95% BMI 20.08 kg/m Physical Exam Constitutional: General: He is not in acute distress. Appearance: Normal appearance. He is not ill-appearing or toxic-appearing. HENT: Head: Normocephalic and atraumatic. Cardiovascular: Rate and Rhythm: Normal rate and regular rhythm. Pulses: Normal pulses. Heart sounds: Normal heart sounds. No murmur heard. No gallop. Pulmonary: Effort: Pulmonary effort is normal. Breath sounds: Normal breath sounds. No wheezing, rhonchi or rales. Abdominal: General: Abdomen is flat. Palpations: Abdomen is soft. Tenderness: There is no abdominal tenderness. There is no guarding. Skin: General: Skin is warm and dry. Neurological: General: No focal deficit present. Mental Status: He is alert. Sensory: No sensory deficit. Comments: A&Ox2 to person and place Psychiatric: Mood and Affect: Mood normal. Select Labs within last 24 hours Assessment and Plan: Delirium Cognitive impairment - MR brain on 06/15 showed diminished cerebral volume and evidence of chronic white matter small vessel ischemic change without acute intracranial abnormality - EEG 06/16 showed no abnormalities - MMSE 20 on initial evaluation - Vitamin B12, TSH, and free T4 WNL - Vitamin D levels low at 27 - Urine drugs screen positive for THC. Ethyl glucuronide negative. - UA and urine culture show no abnormalities - RPR, VDRL, and HIV antibody both negative - Thiamine 1 mg tablet PO daily - Scheduled nightly melatonin - Delirium and fall precautions in place - Discontinued daily labs - Green slipped Lack of capacity - patient does not have capacity per discharge plans per Geriatrics - defer disposition decision making to surrogate decision maker - Ex- is HCPOA - Disposition still in progress Headache of unknown etiology- suspect tension COLLIER based on pt's description of band-like pressure - Patient has been endorsing ongoing headache for the past few days - LP performed 06/17. Meningitis/encephalitis PCR negative. Spinal fluids studies show no abnormalities. - CTH without contrast 06/13/2023 with no evidence o - Tylenol 1,000 mg AM - Additional 650 mg tylenol BID for persistent headaches - Lidocaine patch Debility - PT recommending home independently - OT recommending 24 hour supervision or assist - Currently working on arranging safe home going plain with TCC, SW, and geriatrics team - Currently pending placement for SNF Disposition: Patient recently elected ex- to be POA. Disposition still pending per discussion with POA. Patient prefers SNF and will discuss with ex- to help with decision making. - Goals of Care: FULL CODE - DVT Prophylaxis: SCD's or Sequential Compression Device - GI Prophylaxis: Not Indicated - Diet: General Associated attestation - Nickie Fagan DO - 06/25/2023 6:21 PM EST I saw and evaluated the patient. I agree with the findings and plan of care as documented in the resident's note, except as noted in Green text. Patient seen and examined personally (Date of Sevice: 06/25/23) 7AM-5PM: contact resident on [facility] Med A (find by hovering over attending's name on left side of patient's chart) 5PM-7AM: contact AI2 res Med Team Progress Note Cory Mueller : 1950(72 y.o.) Date: June 24, 2023 Med Team: A Attending: Dr. Fagan Chief Complaint: Confusion and decreased memory Subjective: - No acute events overnight. - Currently, patient resting comfortably in bed and reports improvement in his headache symptoms. Still unable to recall events from the day prior but still expresses to have his exwife as POA when asked without prompting. Patient has no other complaints on examination. PRN meds used in last 24hrs: Melatonin and tylenol Review of Systems Constitutional: Negative for appetite change, fatigue and fever. Respiratory: Negative for chest tightness, shortness of breath and wheezing. Cardiovascular: Negative for chest pain and palpitations. Gastrointestinal: Negative for abdominal pain, diarrhea, nausea and vomiting. Endocrine: Negative for heat intolerance, polyphagia and polyuria. Genitourinary: Negative for difficulty urinating, dysuria and hematuria. Musculoskeletal: Negative for arthralgias, joint swelling and myalgias. Neurological: Positive for headaches. Patient endorsing tension like headache with banding pain around his head Scheduled Meds:acetaminophen, 1,000 mg, Oral, Daily folic acid, 1 mg, Oral, Daily melatonin, 5 mg, Oral, Nightly [START ON 06/25/2023] thiamine, 100 mg, Oral, Daily Continuous Infusions: Objective: BP 126/71 Pulse 69 Temp 36.8 C (98.3 F) (Temporal) Resp 20 Ht 5' 11 (1.803 m) Comment: per chart, pt est 6' Wt 144 lb (65.3 kg) SpO2 96% BMI 20.08 kg/m Physical Exam Constitutional: General: He is not in acute distress. Appearance: Normal appearance. He is not ill-appearing or toxic-appearing. HENT: Head: Normocephalic and atraumatic. Cardiovascular: Rate and Rhythm: Normal rate and regular rhythm. Pulses: Normal pulses. Heart sounds: Normal heart sounds. No murmur heard. No gallop. Pulmonary: Effort: Pulmonary effort is normal. Breath sounds: Normal breath sounds. No wheezing, rhonchi or rales. Abdominal: General: Abdomen is flat. Palpations: Abdomen is soft. Tenderness: There is no abdominal tenderness. There is no guarding. Skin: General: Skin is warm and dry. Neurological: General: No focal deficit present. Mental Status: He is alert. Sensory: No sensory deficit. Comments: A&Ox2 to person and place Psychiatric: Mood and Affect: Mood normal. Select Labs within last 24 hours Assessment and Plan: Delirium Cognitive impairment - MR brain on 06/15 showed diminished cerebral volume and evidence of chronic white matter small vessel ischemic change without acute intracranial abnormality - EEG 06/16 showed no abnormalities - MMSE 20 on initial evaluation - Vitamin B12, TSH, and free T4 WNL - Vitamin D levels low at 27 - Urine drugs screen positive for THC. Ethyl glucuronide negative. - UA and urine culture show no abnormalities - RPR, VDRL, and HIV antibody both negative - Thiamine 1 mg tablet PO daily - Scheduled nightly melatonin - Delirium and fall precautions in place - Discontinued daily labs - Green slipped Lack of capacity - patient does not have capacity per discharge plans per Geriatrics - defer disposition decision making to surrogate decision maker - Recommend pursuing guardianship - Possibility that ex-spouse can possibly be POA for patient in future - pending Headache of unknown etiology- suspect tension COLLIER based on pt's description of band-like pressure - Patient has been endorsing ongoing headache for the past few days - LP performed 06/17. Meningitis/encephalitis PCR negative. Spinal fluids studies show no abnormalities. - CTH without contrast 06/13/2023 with no evidence o - Tylenol 1,000 mg AM - Additional 650 mg tylenol BID for persistent headaches Debility - PT recommending home independently - OT recommending 24 hour supervision or assist - Currently working on arranging safe home going plain with TCC, SW, and geriatrics team - Goals of Care: FULL CODE - DVT Prophylaxis: SCD's or Sequential Compression Device - GI Prophylaxis: Not Indicated - Diet: General Associated attestation - Nickie Fagan DO - 06/24/2023 5:30 PM EST I saw and evaluated the patient. I agree with the findings and plan of care as documented in the resident's note, except as noted in Green text. Patient seen and examined personally at around 1300 (Date of Service: 06/24/23) -D/W TCC -appreciate TCC/SW help w/dispo planning. -pt agreeable to care. Very apathetic likely 2/2 dementia. Has made no attempt to leave and not asked me about leaving. Clearly lacks ability to be safe unsupervised in apt alone. 7AM-5PM: contact resident on [facility] Med A (find by hovering over attending's name on left side of patient's chart) 5PM-7AM: contact AI2 res Med Team Progress Note Cory Mueller : 1950(72 y.o.) Date: June 23, 2023 Med Team: [facility] Attending: Dr. Candelario Chief Complaint: Confusion and decreased memory Subjective: - No acute events overnight. - Currently, patient resting comfortably in bed. Patient has no recollection about the POA discussion we had the day before. Without prompting the patient I asked him who he would choose if someone needed make decisions on his behalf if he were unable to which he responded with his ex-. While on team rounds he was asked the same question by Dr. Candelario and gave the same answer. This multiple questioning over his potential POA shows consistency in who he would want to choose and who he has mentioned in meetings with SW. PRN meds used in last 24hrs: melatonin 3 mg PO tablet Pt seen and examined earlier today on bedside resident teaching rounds. Hx and PE independently obtained; agree with above. Review of Systems Constitutional: Negative for appetite change, fatigue and fever. Respiratory: Negative for chest tightness, shortness of breath and wheezing. Cardiovascular: Negative for chest pain and palpitations. Gastrointestinal: Negative for abdominal pain, diarrhea, nausea and vomiting. Endocrine: Negative for heat intolerance, polyphagia and polyuria. Genitourinary: Negative for difficulty urinating, dysuria and hematuria. Musculoskeletal: Negative for arthralgias, joint swelling and myalgias. Neurological: Positive for headaches. Patient endorsing tension like headache with banding pain around his head Agree. Scheduled Meds:acetaminophen, 1,000 mg, Oral, Daily folic acid, 1 mg, Oral, Daily melatonin, 5 mg, Oral, Nightly thiamine (Vitamin B1) 250 mg in sodium chloride 0.9 % 100 mL IVPB, 250 mg, IntraVENous, Daily [START ON 06/25/2023] thiamine, 100 mg, Oral, Daily Continuous Infusions: Objective: BP 148/85 Pulse 77 Temp 36.1 C (96.9 F) (Temporal) Resp 20 Ht 5' 11 (1.803 m) Comment: per chart, pt est 6' Wt 144 lb (65.3 kg) SpO2 97% BMI 20.08 kg/m Physical Exam Constitutional: General: He is not in acute distress. Appearance: Normal appearance. He is not ill-appearing or toxic-appearing. HENT: Head: Normocephalic and atraumatic. Cardiovascular: Rate and Rhythm: Normal rate and regular rhythm. Pulses: Normal pulses. Heart sounds: Normal heart sounds. No murmur heard. No gallop. Pulmonary: Effort: Pulmonary effort is normal. Breath sounds: Normal breath sounds. No wheezing, rhonchi or rales. Abdominal: General: Abdomen is flat. Palpations: Abdomen is soft. Tenderness: There is no abdominal tenderness. There is no guarding. Skin: General: Skin is warm and dry. Neurological: General: No focal deficit present. Mental Status: He is alert. Sensory: No sensory deficit. Comments: A&Ox2 to person and place Psychiatric: Mood and Affect: Mood normal. A&Ox3. Cooperative. Makes good eye contact. HEENT- MMM. Neck-supple Ext- no edema. Select Labs within last 24 hours Assessment and Plan: Delirium Cognitive impairment - MR brain on 06/15 showed diminished cerebral volume and evidence of chronic white matter small vessel ischemic change without acute intracranial abnormality - EEG 06/16 showed no abnormalities - MMSE 20 on initial evaluation - Vitamin B12, TSH, and free T4 WNL - Vitamin D levels low at 27 - Urine drugs screen positive for THC. Ethyl glucuronide negative. - UA and urine culture show no abnormalities - RPR, VDRL, and HIV antibody both negative - Thiamine 1 mg tablet PO daily - Scheduled nightly melatonin - Delirium and fall precautions in place - Discontinued daily labs - Green slipped Agree. Lack of capacity - patient does not have capacity per discharge plans per Geriatrics - defer disposition decision making to surrogate decision maker - Recommend pursuing guardianship - Possibility that ex-spouse can possibly be POA for patient in future - pending Agree. Would pursue HCPOA tomorrow/Saturday and ask SW to assist. Pt has been very consistent in his request to have his ex- be his surrogate decision maker. Headache of unknown etiology- suspect tension COLLIER based on pt's description of band-like pressure - Patient has been endorsing ongoing headache for the past few days - LP performed 06/17. Meningitis/encephalitis PCR negative. Spinal fluids studies show no abnormalities. - CTH without contrast 06/13/2023 with no evidence o - Tylenol 1,000 mg AM - Additional 650 mg tylenol BID for persistent headaches Agree. Debility - PT recommending home independently - OT recommending 24 hour supervision or assist - Currently working on arranging safe home going plain with TCC, SW, and geriatrics team - Goals of Care: FULL CODE - DVT Prophylaxis: SCD's or Sequential Compression Device - GI Prophylaxis: Not Indicated - Diet: General Attending Supervising Physician's Attestation Statement for Progress Note I performed a history and physical examination on the patient and discussed the management with the resident physician. I reviewed and agree with the findings and plan as documented in their note except as amended in green font. Addendums may have been dictated using the MyDocTime Voice Recognition Feature. The document was proofread; however, unrecognized voice recognition training administrator errors may be present. Please note, the time of this note does not reflect the time I saw this patient today, but the time of this documentaton. Discussed with: [x]Residents [x]Patient []Family [x]RN []Consultants []SW/TCC [] PT/OT []Pharmacist []Other Reviewed: [x]Epic notes []Radiology studies []Labs []EKG []Other Subsequent Inpatient/OBS: Spent total time 25 minutes counseling or coordinating care, and discussion regarding dispo plans, HCPOA plans with med team. 7AM-5PM: contact resident on [facility] Med Team (found by hovering over attending's name on left side of patient's chart) 5PM-7AM: contact AI3 resident Med Team Progress Note Cory Mueller : 1950(72 y.o.) Date: June 22, 2023 Med Team: [facility] Attending: Dr. Candelario Chief Complaint: Confusion and Decreased memory Subjective: - No acute events overnight. - Currently, patient resting comfortably in bed. Attempted to engage patient about recent decision to allow his ex- to be his HCPOA however in the morning he was unable to recall. During team rounds Dr. Candelario asked him again and he was able to somewhat remember having a discussion about it and when asked who he would choose to be his POA he instantly stated his ex- without prompting. Patient was able to repeat what a HCPOA is and was somewhat able to recall the conversation a few minutes after. No other complaints were noted on examination PRN meds used in last 24hrs: none Pt seen and examined earlier today on bedside resident teaching rounds. Hx and PE independently obtained. Agree with above. Spent time educating pt per what HCPOA means and pt was able to teach back. Endorsed ex- Violeta Julien. Review of Systems Constitutional: Negative for appetite change, fatigue and fever. Respiratory: Negative for chest tightness, shortness of breath and wheezing. Cardiovascular: Negative for chest pain and palpitations. Gastrointestinal: Negative for abdominal pain, diarrhea, nausea and vomiting. Endocrine: Negative for heat intolerance, polyphagia and polyuria. Genitourinary: Negative for difficulty urinating, dysuria and hematuria. Musculoskeletal: Negative for arthralgias, joint swelling and myalgias. Neurological: Positive for headaches. Patient endorsing tension like headache with banding pain around his head Agree. Did not c/o COLLIER during teaching rounds. Scheduled Meds:acetaminophen, 1,000 mg, Oral, Daily folic acid, 1 mg, Oral, Daily melatonin, 5 mg, Oral, Nightly thiamine (Vitamin B1) 250 mg in sodium chloride 0.9 % 100 mL IVPB, 250 mg, IntraVENous, Daily [START ON 06/25/2023] thiamine, 100 mg, Oral, Daily Objective: BP 139/63 Pulse 66 Temp 36.8 C (98.3 F) (Temporal) Resp 18 Ht 5' 11 (1.803 m) Comment: per chart, pt est 6' Wt 144 lb (65.3 kg) SpO2 98% BMI 20.08 kg/m Physical Exam Constitutional: General: He is not in acute distress. Appearance: Normal appearance. He is not ill-appearing or toxic-appearing. HENT: Head: Normocephalic and atraumatic. Cardiovascular: Rate and Rhythm: Normal rate and regular rhythm. Pulses: Normal pulses. Heart sounds: Normal heart sounds. No murmur heard. No gallop. Pulmonary: Effort: Pulmonary effort is normal. Breath sounds: Normal breath sounds. No wheezing, rhonchi or rales. Abdominal: General: Abdomen is flat. Palpations: Abdomen is soft. Tenderness: There is no abdominal tenderness. There is no guarding. Skin: General: Skin is warm and dry. Neurological: General: No focal deficit present. Mental Status: He is alert. Sensory: No sensory deficit. Comments: A&Ox2 to person and place Psychiatric: Mood and Affect: Mood normal. A&O to hospital and name. Cooperative. Makes good eye contact. Speaking in full sentences. Believes he is in hospital due to his poor memory. [facility] Labs within last 24 hours Assessment and Plan: Delirium Cognitive impairment - MR brain on 06/15 showed diminished cerebral volume and evidence of chronic white matter small vessel ischemic change without acute intracranial abnormality - EEG 06/16 showed no abnormalities - MMSE 20 on initial evaluation - Vitamin B12, TSH, and free T4 WNL - Vitamin D levels low at 27 - Urine drugs screen positive for THC. Ethyl glucuronide negative. - UA and urine culture show no abnormalities - RPR, VDRL, and HIV antibody both negative - 1,000 mg thiamine infusion followed by 750 IV infusion - Once administered start PO 1 mg tablet daily - Scheduled nightly melatonin - Delirium and fall precautions in place - Discontinued daily labs - Green slipped Agree. Lack of capacity - patient does not have capacity per discharge plans per Geriatrics - defer disposition decision making to surrogate decision maker - Recommend pursuing guardianship - Possibility that ex-spouse can possibly be POA for patient in future - pending Agree. Will again review with pt in morning. If he can consistently endorse ex- as HCPOA and teach back again the significance, will ask SW to assist in HCPOA execution. Headache of unknown etiology- suspect tension COLLIER based on pt's description of band-like pressure - Patient has been endorsing ongoing headache for the past few days - LP performed 06/17. Meningitis/encephalitis PCR negative. Spinal fluids studies show no abnormalities. - CTH without contrast 06/13/2023 with no evidence o - Tylenol 1,000 mg AM Debility - PT recommending home independently - OT recommending 24 hour supervision or assist - Currently working on arranging safe home going plain with TCC, SW, and geriatrics team - Goals of Care: FULL CODE - DVT Prophylaxis: SCD's or Sequential Compression Device - GI Prophylaxis: Not Indicated - Diet: General Attending Supervising Physician's Attestation Statement for Progress Note I performed a history and physical examination on the patient and discussed the management with the resident physician. I reviewed and agree with the findings and plan as documented in their note except as amended in green font. Addendums may have been dictated using the MyDocTime Voice Recognition Feature. The document was proofread; however, unrecognized voice recognition training administrator errors may be present. Please note, the time of this note does not reflect the time I saw this patient today, but the time of this documentaton. Discussed with: [x]Residents [x]Patient []Family []RN []Consultants []SW/TCC [] PT/OT []Pharmacist []Other Reviewed: [x]Epic notes []Radiology studies []Labs []EKG []Other Subsequent Inpatient/OBS: Spent total time25 minutes counseling or coordinating care, and discussion regarding discussion of HCPOA meaning and pt's choice. 7AM-5PM: contact resident on [facility] Med Team (found by hovering over attending's name on left side of patient's chart) 5PM-7AM: contact AI3 resident Med Team Progress Note Cory Mueller : 1950(72 y.o.) Date: June 21, 2023 Med Team: A Attending: Dr. Fagan Chief Complaint: Confusion and decreased memory Subjective: - No acute events overnight. - Currently, patient resting comfortably in bed with no new complaints. Patient continues to express poor insight with regards to his current hospitalization. Today he is A&O to person and place but not to time or significant events. Patient continues to endorse tension like headache which he endorses is worse compared to previous encounters. During team rounds Dr. Candelario was able to assess patient's distant recall by asking him questions about his favorite western tv shows growing up (watching reruns of old shows on TV). Patient was able to recall the names and even characters of certain shows revealing more animation and engagement during this part of pt interaction. No other complaints were noted on examination PRN meds used in last 24hrs: Tylenol Pt seen and examined earlier today on bedside resident teaching rounds. Hx and PE independently obtained. Resting comfortably in bed. When asked, believes he is in hospital for his COLLIER. Unable to provide any other info per medical hx or workup to date. Review of Systems Constitutional: Negative for appetite change, fatigue and fever. Respiratory: Negative for chest tightness, shortness of breath and wheezing. Cardiovascular: Negative for chest pain and palpitations. Gastrointestinal: Negative for abdominal pain, diarrhea, nausea and vomiting. Endocrine: Negative for heat intolerance, polyphagia and polyuria. Genitourinary: Negative for difficulty urinating, dysuria and hematuria. Musculoskeletal: Negative for arthralgias, joint swelling and myalgias. Neurological: Positive for headaches. Patient endorsing tension like headache with banding pain around his head Agree. Scheduled Meds:[START ON 06/22/2023] acetaminophen, 1,000 mg, Oral, Daily folic acid, 1 mg, Oral, Daily melatonin, 5 mg, Oral, Nightly thiamine (Vitamin B1) 500 mg in sodium chloride 0.9 % 100 mL IVPB, 500 mg, IntraVENous, TID And [START ON 06/22/2023] thiamine (Vitamin B1) 250 mg in sodium chloride 0.9 % 100 mL IVPB, 250 mg, IntraVENous, Daily [START ON 06/25/2023] thiamine, 100 mg, Oral, Daily Objective: BP 147/93 Pulse 66 Temp 36.6 C (97.8 F) (Temporal) Resp 18 Ht 5' 11 (1.803 m) Comment: per chart, pt est 6' Wt 144 lb (65.3 kg) SpO2 97% BMI 20.08 kg/m Physical Exam Constitutional: General: He is not in acute distress. Appearance: Normal appearance. He is not ill-appearing or toxic-appearing. HENT: Head: Normocephalic and atraumatic. Cardiovascular: Rate and Rhythm: Normal rate and regular rhythm. Pulses: Normal pulses. Heart sounds: Normal heart sounds. No murmur heard. No gallop. Pulmonary: Effort: Pulmonary effort is normal. Breath sounds: Normal breath sounds. No wheezing, rhonchi or rales. Abdominal: General: Abdomen is flat. Palpations: Abdomen is soft. Tenderness: There is no abdominal tenderness. There is no guarding. Skin: General: Skin is warm and dry. Neurological: General: No focal deficit present. Mental Status: He is alert. Sensory: No sensory deficit. Comments: A&Ox2 to person and place Psychiatric: Mood and Affect: Mood normal. Awake, alert, oriented to name. Cooperative. Makes good eye contact. HEENT- MMM. Neck-supple Cor- RRR, nl S1S2. Lungs- CTA. Abd (+) BS, soft NT. Assessment and Plan: Delirium Cognitive impairment - MR brain on 06/15 showed diminished cerebral volume and evidence of chronic white matter small vessel ischemic change without acute intracranial abnormality - EEG 06/16 showed no abnormalities - MMSE 20 on initial evaluation - Vitamin B12, TSH, and free T4 WNL - Vitamin D levels low at 27 - Urine drugs screen positive for THC. Ethyl glucuronide negative. - UA and urine culture show no abnormalities - RPR, VDRL, and HIV antibody both negative - 1,000 mg thiamine infusion followed by 750 IV infusion - Once administered start PO 1 mg tablet daily - Scheduled nightly melatonin - Delirium and fall precautions in place - Discontinued daily labs - Green slipped Agree. Lack of capacity - patient does not have capacity per discharge plans per Geriatrics - defer disposition decision making to surrogate decision maker - Recommend pursuing guardianship Per MYNOR Waterman on [employer] Chat this afternoon: I spoke with ex -Violeta Mueller. She is willing to be his HCPOA if all feels he can complete this. Although she can not oversee his daily needs and handle finances etc. she would not apply to be his Guardian at this point. -- Will need to d/w pt on rounds tomorrow to see if he is agreeable to this. If so, and able to teach back what a HCPOA will be able to do, will ask for assistance with SW to complete paperwork over weekend. Still need to explore options for a safe discharge, eg, is pt's ex- able to bring him to appointments? - need to work with pt per possible ECF discharge for safety reasons. Headache of unknown etiology- suspect tension COLLIER based on pt's description of band-like pressure - Patient has been endorsing ongoing headache for the past few days - LP performed 06/17. Meningitis/encephalitis PCR negative. Spinal fluids studies show no abnormalities. - CTH without contrast 06/13/2023 with no evidence o - Change tylenol from PRN to scheduled 1,000 mg AM Agree. Debility - PT recommending home independently - OT recommending 24 hour supervision or assist - Currently working on arranging safe home going plain with TCC, SW, and geriatrics team - Goals of Care: FULL CODE - DVT Prophylaxis: SCD's or Sequential Compression Device - GI Prophylaxis: Not Indicated - Diet: General Disposition: Patient pending evaluation by geriatrics for capacity assessment. There is concern for limited capacity and inability for patient to take care of himself if he is discharged home. Will remain on [facility] for now. Attending Supervising Physician's Attestation Statement for Progress Note I performed a history and physical examination on the patient and discussed the management with the resident physician. I reviewed and agree with the findings and plan as documented in their note except as amended in green font. Addendums may have been dictated using the MyDocTime Voice Recognition Feature. The document was proofread; however, unrecognized voice recognition training administrator errors may be present. Please note, the time of this note does not reflect the time I saw this patient today, but the time of this documentaton. Discussed with: [x]Residents [x]Patient []Family [x]RN []Consultants [x]SW/TCC [] PT/OT []Pharmacist []Other Reviewed: [x]Epic notes []Radiology studies []Labs []EKG []Other Subsequent Inpatient/OBS: Spent total time 35 minutes counseling or coordinating care, and discussion regarding delving into plans for a safe discharge in this very complicated situation of a pt with minimal community/family support. 7AM-5PM: contact resident on [facility] Team (found by hovering over attending's name on left side of patient's chart) 5PM-7AM: contact AI3 resident Nutrition Assessment Type and Reason for Visit: Reassess Nutrition Recommendations/Plan: Continue with regular diet and ONS as ordered. From nutrition stand point patient appears stable, will assign low nutrition risk, RD available upon reconsult. Malnutrition Assessment: Malnutrition Status: No malnutrition (not acutely AEB pt fully tolerating meals and ONS) Context: Acute Illness (?? social/enviromental circumstances; pt limited historian, ?? food security) Findings of the 6 clinical characteristics of malnutrition: Energy Intake: No significant decrease in energy intake Weight Loss: No significant weight loss (when comparing 144# to 146#) Body Fat Loss: Unable to assess Buccal region, Orbital Muscle Mass Loss: Unable to assess Temples (temporalis) Fluid Accumulation: No significant fluid accumulation Immigration Case Worker Strength: Not Performed Nutrition Assessment: Pt with noted use of tobacco and EtOH without other PMH noted/indicated presented with confusion; per chart, pt was brought in on 06/13 by EMS from [facility], pt had reported being at home watching TV when he found himself somehow on a bus and ended up at [employer], pt cannot remember why he got on the bus or what he was doing, noted to be A&Ox2 at the time; initial work-up was mostly unremarkable, CTH and CXR WNL; pt lives at home alone, doesn't appear to have support system, is able to perform ADLs, does not take any medications and has not seen PCP in years; Geriatrics service consulted here, pt reporting last EtOH drink was months ago and denied doing drugs, stated he used to drink a lot more ~15-20 years ago, reported drinking 5 regular beers/day and has been having a tough time with his memory, pt able to state that he 'wants Trump to get elecated' and watches the news all day but did not know when the election year occurred; yesterday pt noted to have worsening delirium, A&Ox1, UDS was + for THC, ethyl glucuronide was negative, UA and urine culture without abnormalities; further work-up was ordered (MRI brain completed, negative) 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 Regular PO diet ordered, pt tolerating well per chart. Able to contact pt sister, Ms. Keith (from [place]) states she and her sister (who lives in [place]) are Cory's only living relatives. Stated pt had apparently cut himself off from the family for unknown reasons. 06/17 fluoroscopically guided lumbar puncture was performed and went well. Pt states that he has been completing his meals and drinking fluids. So far all work up for encephalopathy has been negative. Pt stated he feels like he has had some memory issues over the last 6 months. OT reccomending 24 hour care following discharge. RD advisory intern saw pt. Pt stated that his appetiite has been normal and he has been eating his meals. Pt stated that he had veal, mashed potatoes, and carrots for lunch. (probably pot roast) When asked what he eats at home he stated whatever I have in the fridge . Pt stated he drinks whole milk frequently and usually eats 3 meals a day. Pt said he is enjoying that chocolate ensures and drinking them when they come. Noted a empty ensure bottle on his bed side table. Obtained bed scale weight of 146.6#. Pt stated UBW 150#. Estimated Daily Nutrient Needs: Energy Requirements Based On: Kcal/kg Weight Used for Energy Requirements: Current (observed by RD) Weight for Energy Calculation (kg): 65.3 kg Total Energy Requirements (kcals/day): 3613-9053 kcal/day (28-30 kcal/kg) Weight Used for Protein Requirements: Current Weight in Kg Used for Protein Requirements: 65.3 kg Estimated Total Protein (g/day): 65-78 gm protein/day (1.0-1.2 gm protein/kg) Estimated Daily Total Fluid (ml/day): per MD Nutrition Related Findings: bowel sounds active; abdomen soft and nondistended; no edema indicated; last BM 2/ per pt; labs and med reviews Wound Type: None Current Nutrition Therapies: Adult diet Regular Current Oral Intake Average Meal Intake: 76-100% Average Supplements Intake: 76-100% Anthropometric Measures: Height: 180.3 cm (5' 11 ) (per chart, pt est 6') Current Body Weight: 66.5 kg (146 lb 9.6 oz) (bedscale) Admission Body Weight: 48.7 kg (107 lb 5.8 oz) (? bedscale) Usual Body Weight: 68 kg (150 lb) (per pt; no weight hx however can see from 2018 01/15/2018- 159#) % Weight Change (Calculated): -4 [place] Body Weight (lbs) (Calculated): 172 lbs [place] Body Weight (Kg) (Calculated): 78 kg % [place] Body Weight (Calculated): 83.7 % BMI (kg/m2) (Calculated): 20.5 Weight Adjustment For: No Adjustment BMI Categories: Underweight (BMI less than 22) age over 65 Nutrition Interventions: Nutrition Education/Counseling: Education not indicated Coordination of Nutrition Care: Continue to monitor while inpatient, Coordination of Care Plan of Care discussed with: pt briefly Goals: Previous Goal Met: Goal(s) Achieved Goals: PO intake 75% or greater, by next RD assessment Nutrition Monitoring and Evaluation: Behavioral-Environmental Outcomes: (N/A) Food/Nutrient Intake Outcomes: Diet Advancement/Tolerance, Food and Nutrient Intake, Supplement Intake Physical Signs/Symptoms Outcomes: Biochemical Data, Meal Time Behavior, Nutrition Focused Physical Findings, Skin, Weight Discharge Planning: No discharge needs at this time Estela Guy Contact: [phone] Images from the original note were not included. PHYSICAL THERAPY [facility] Treatment Note Name/MRN: Cory Mueller ([id number]) Date of : 1950 Age: 72 y.o. Room/Bed: W6-629/W6-629 A Discharge Recommendation: Home independently Equipment Needed: No Prior Level of Function ADL Assistance: Independent Ambulation Assistance: Independent Transfer Assistance: Independent Assessment Pt was indep with all mobility. Would recommend home indep. No acute PT needs at this time, will sign off. Placement would need factors other than PT. Subjective Pt supine in bed. Agreeable to PT session. Cleared by nursing Pain: Pt denies any current pain. Medical Precautions: No active isolations Proper PPE donned/doffed in accordance with facility standards. Fall Risk: [place] Fall Risk Score: 45 (High Risk) Precautions/Restrictions: N/A Overall Cognitive Status: WNL Overall Orientation Status: Oriented x4 Family/Caregiver Present: none Objective Ambulation Ambulation 1 Assistive device(s) used: none Assist level: Independent Distance (ft): 650' Quality of gait: No gait deviations Transfers/Mobility Sit to stand: Independent Stand to sit: Independent EOB x1 Bed Mobility Supine to sit: Independent Sit to supine: Independent Plan Continue acute PT per plan of care. Safety/Education Safety Safety Devices in place: call light within reach and left in bed Restraints: No Education Education Given To: patient Education Provided: PT Role, PT Goals, Plan of Care, and Discharge Recommendations Education Method: Verbal Barriers to Learning: None Education Outcome: Verbalized Understanding Outcome Measures AM-PAC AM-PAC Inpatient Mobility Raw Score (No Stairs) : 20 JH-HLM JH-HLM Score: Walked 250 ft or more (i.e. several laps on unit) Goals Patient Stated Goal: to go home Encounter Problems Encounter Problems (Resolved) Mobility Patient will ambulate 300 feet with independence and no assistive device in order to improve safety and independence with mobility. (Completed) Start: 06/17/23 Expected End: 07/01/23 Resolved: 06/20/23 Therapy Time Individual Co-treatment Time In 0917 Time Out 09 Minutes 9 Timed Code Treatment Minutes: (1 gait) Lynda Mendoza PT Med Team Progress Note Cory Mueller : 1950(72 y.o.) Date: June 20, 2023 Med Team: [place] Attending: Dr. Fagan Chief Complaint: Confusion and decreased memory Subjective: - No acute events overnight. - Currently, patient resting comfortably in bed with no new complaints. When attempting to ascertain why patient was admitted to the hospital he is able to recall some of the events that transpired but still feels very confused. Patient continues to endorse that he has been kicked out of his current apartment but as noted in his chart with the help of SW this is not the case. Patient is AXO to person and unable to describe what city or year he is in. No other complaints were noted on examination. PRN meds used in last 24hrs: Tylenol Review of Systems Constitutional: Negative for appetite change, fatigue and fever. Respiratory: Negative for chest tightness, shortness of breath and wheezing. Cardiovascular: Negative for chest pain and palpitations. Gastrointestinal: Negative for abdominal pain, diarrhea, nausea and vomiting. Endocrine: Negative for heat intolerance, polyphagia and polyuria. Genitourinary: Negative for difficulty urinating, dysuria and hematuria. Scheduled Meds:folic acid, 1 mg, Oral, Daily melatonin, 5 mg, Oral, Nightly Continuous Infusions: Objective: BP 144/87 (BP Location: Right arm, Patient Position: Lying) Pulse 66 Temp 36.5 C (97.7 F) (Temporal) Resp 16 Ht 5' 11 (1.803 m) Comment: per chart, pt est 6' Wt 144 lb (65.3 kg) SpO2 95% BMI 20.08 kg/m Physical Exam Constitutional: General: He is not in acute distress. Appearance: Normal appearance. He is not ill-appearing or toxic-appearing. HENT: Head: Normocephalic and atraumatic. Cardiovascular: Rate and Rhythm: Normal rate and regular rhythm. Pulses: Normal pulses. Heart sounds: Normal heart sounds. No murmur heard. No gallop. Pulmonary: Effort: Pulmonary effort is normal. Breath sounds: Normal breath sounds. No wheezing, rhonchi or rales. Abdominal: General: Abdomen is flat. Palpations: Abdomen is soft. Tenderness: There is no abdominal tenderness. There is no guarding. Skin: General: Skin is warm and dry. Neurological: General: No focal deficit present. Mental Status: He is alert. Sensory: No sensory deficit. Psychiatric: Mood and Affect: Mood normal. Assessment and Plan: Delirium Cognitive impairment - A&Ox1 this AM (06/20/23) - MR brain on 06/15 showed diminished cerebral volume and evidence of chronic white matter small vessel ischemic change without acute intracranial abnormality - EEG 06/16 showed no abnormalities - MMSE 20 on initial evaluation - Vitamin B12, TSH, and free T4 WNL - Vitamin D levels low at 27 - Urine drugs screen positive for THC. Ethyl glucuronide negative. - UA and urine culture show no abnormalities - RPR and HIV antibody both negative - Geriatrics following patient, will appreciate recs - Continue thiamine 250 mg IV and folic acid 1 mg tablet - Scheduled nightly melatonin - Geriatrics to assess patient capacity today (06/20/23) - Delirium and fall precautions in place - Discontinued daily labs - Green slipped Headache of unknown etiology - Patient has been endorsing ongoing headache for the past few days - LP performed 06/17. Meningitis/encephalitis PCR negative. Spinal fluids studies show no abnormalities. - PRN tylenol Debility - PT recommending home independently - Awaiting OT recs - Currently working on arranging safe home going plain with TCC, SW, and geriatrics team - Goals of Care: FULL CODE - DVT Prophylaxis: SCD's or Sequential Compression Device - GI Prophylaxis: Not Indicated - Diet: General Disposition: Patient pending evaluation by geriatrics for capacity assessment. There is concern for limited capacity and inability for patient to take care of himself if he is discharged home. Will remain on GMF for now. Associated attestation - Nickie Fagan DO - 06/20/2023 11:20 PM EST I saw and evaluated the patient. I agree with the findings and plan of care as documented in the resident's note, except as noted in Green text. Patient seen and examined personally at around 1045 (Date of Service: 06/20/23) -personally D/W YEIMY and Dr. White -On my assessment this morning pt was able to tell me he's here b/c he has memory issues. He didn't have a clear idea of where he'd go after hospital and thought he had lost his apartment despite being told previously this admission that apt complex will take him back. He could not tell me what bank he uses or how he pays bills. Denied feeling down or depressed. No appetite change. Sleeping ok. -Reviewed OT rec of 24 hour supervision. PT rec home independently. -medically stable for discharge. Still looking for safe discharge option for him given concerns regarding his safety. Suspect he needs much more supervision than his sister, Gabriela, is able to provided. Appreciate TCC/SW and geriatrics assistance. 7AM-5PM: contact resident on [facility] Med A (find by hovering over attending's name on left side of patient's chart) 5PM-7AM: contact AI3 res [facility] Geriatric Medicine Inpatient Consult Service Late Entry Admission Date: 06/13/2023 Assessment Principal Problem: Delirium Active Problems: Acute metabolic encephalopathy Cognitive impairment Debility History of alcohol abuse Plan Cognitive impairment/Concern for home safety/Capacity to decide disposition -Persistent cognitive impairment. Differential diagnosis including alcoholic dementia, mixed dementia, neurologic event. -suspect some inciting event that displaced him from his cognitive baseline. -Agree that there is concern for his ability to safely function in the community. OT recommending 24/7 supervision based on Jenise. -At this time he does not have the capacity to determine his discharge disposition as he cannot reason about his options. Believes that he will be safe at home, but cannot explain why he feels this way. Says that he is two months behind on his rent. Unclear if this is true or not. Defer disposition decisions to surrogate decision maker. -Given concern for his ability to manage his person or property with his current level of cognitive impairment, recommend pursuing guardianship. This does not mean that he needs to reside in the hospital indefinitely and we will continue to work with the primary service and the discharge team to determine the safest disposition for him. May need to engage family for increased supervision as well as APS if he returns to the community. OK to discharge to [facility] from geriatric perspective once safe disposition is determined Time spent: 55 minutes Follow-up: will follow with you Subjective Chief Complaint: Chief Complaint Patient presents with Altered Mental Status Pt is brought into the ED by EMS. Per EMS the pt was found wandering near the bob [place] on the [address]. Pt states that he lives in [place]. Pt states that he remembers getting on the bus this morning. Pt states that he is not sure where he was going when he got on the bus. Pt states that he does not remember much from today. Geriatrics consulted for Episode of confusion and wondering to bob couch, unclear etiology. MMSE 20. Concerns for safety at home HPI- The patient is known to me. 72 y.o. year-old male admitted to acute care from home for altered mental status. Diagnosed with cognitive impairment. Interval History: Remains on general medical/surgical floor . Concern for safety at home. Seen by PT. No assist. Ambulated 650 ft. Recommending home independently. S/p lumbar puncture. Review of Systems Neurological: Positive for headaches. Mr. Mueller state that he has started having a headache when he came into the hospital. States that tylenol doesn't always fully stop it. Not aware of any history of migraines. Describes his brain as mush . Acknowledges that he is having difficulty thinking. Doesn't think it will be a problem when he goes home because his apartment has an elevator. Tells me that his money has been blocked . Says that he tried to use his debit card and was told that the financial institution has blocked it. Says that he believes that he is two months behind on his rent. Tells me that he doesn't have a bank but then tells me that he goes to the bank to get money to pay his rent. Said that he doesn't have a car. He junked it because it was too expensive to keep it. He shops at [employer] as its within walking distance. Has two sisters. One lives in [place]. He says that the other sister does not have room for him to stay with her. He would prefer to go home to his apartment but would also be agreeable to intermission coordinator care. I explained the concern for his ability to manage things like groceries, bills, etc given his cognitive impairment. He states that he understands. Thinks he will be ok at home, but cannot tell me why. I discussed Mr. Mueller with Dr. Fagan and Dr. Curry. Objective BP 147/93 Pulse 66 Temp 36.6 C (97.8 F) (Temporal) Resp 18 Ht 5' 11 (1.803 m) Comment: per chart, pt est 6' Wt 144 lb (65.3 kg) SpO2 97% BMI 20.08 kg/m Intake/Output Summary (Last 24 hours) at 06/21/2023 0741 Last data filed at 06/20/2023 2215 Gross per 24 hour Intake 1080 ml Output -- Net 1080 ml Wt Readings from Last 3 Encounters: 06/17/23 144 lb (65.3 kg) Current Facility-Administered Medications: acetaminophen (Tylenol) tablet 650 mg, 650 mg, Oral, q6h PRN, Kenneth Solo DO, 650 mg at 06/20/232113 folic acid (Folvite) tablet 1 mg, 1 mg, Oral, Daily, Bradley Millard MD, 1 mg at 06/20/23 1054 melatonin tablet 3 mg, 3 mg, Oral, Nightly PRN, Raymundo Patrick MD, 3 mg at 06/18/232125 melatonin tablet 5 mg, 5 mg, Oral, Nightly, Bradley Millard MD, 5 mg at 06/20/23 2115 sodium chloride ([place]) 0.65 % nasal spray 1 spray, 1 spray, Each Nostril, PRN, Matty Bryson DO, 1 spray at 06/18/23 0454 Physical Exam Constitutional: General: He is not in acute distress. Cardiovascular: Rate and Rhythm: Normal rate. Pulmonary: Effort: Pulmonary effort is normal. No respiratory distress. Abdominal: General: Bowel sounds are normal. Palpations: Abdomen is soft. Musculoskeletal: Right lower leg: No edema. Left lower leg: No edema. Skin: General: Skin is warm and dry. Neurological: Mental Status: He is alert. He is disoriented. Psychiatric: Attention and Perception: Attention normal. Speech: Speech normal. Behavior: Behavior is cooperative. Cognition and Memory: Cognition is impaired. Memory is impaired. Judgment: Judgment is inappropriate. Comments: Apathetic. Labs and Imaging: No results found for this or any previous visit (from the past 24 hour(s)). Lab Results Component Value Date TSH 1.317 06/13/2023 Lab Results Component Value Date YINDOROL13 575 06/15/2023 Lab Results Component Value Date VITD25 27 (L) 06/15/2023 Reviewed: social history and active problem lists Images from the original note were not included. OCCUPATIONAL THERAPY [facility] Initial Evaluation Name/MRN: Cory Mueller ([id number]) Evaluation Date: 06/19/2023 Date of : 1950 Admission Date: 06/13/2023 9:56 PM Age: 72 y.o. Room/Bed: [facility] A Discharge Recommendation: 24 hour supervision or assist (if family is unable to provide 24/7 supervision then recommend a facility that can provide 24/7) Equipment Needed: No Assessment IMPRESSION: Pt presented with delirium. Pt previously IND with ADLs, IADLs, and mobility. Pt currently at his functional baseline but pt did fail the JENISE safety awareness questions indicating he is unsafe to return home alone at this time. OT recommending 24/7 supervision, if family is unable to provide then recommend a facility that can provide 24/7. Performance Deficits /Impairments: Decreased Cognition Prognosis: Good Decision Making: Low Complexity Subjective Pt supine in bed, agreeable to OT eval. Pain: Pt denies any current pain. Past Medical History: History reviewed. No pertinent past medical history. Past Surgical History: History reviewed. No pertinent surgical history. Admission Diagnosis: Patient Active Problem List Diagnosis Date Noted Acute metabolic encephalopathy 06/15/2023 Cognitive impairment 06/15/2023 Debility 06/15/2023 History of alcohol abuse 06/15/2023 Delirium 06/14/2023 Medical Precautions: No active isolations Proper PPE donned/doffed in accordance with facility standards. Fall Risk: [place] Fall Risk Score: 45 (High Risk) Precautions/Restrictions: N/A Family/Caregiver Present: none Overall Cognitive Status: OT asked pt JENISE safety awareness questions and pt was unable to answer them correctly indicating he is unsafe to return home alone. Overall Orientation Status: Oriented to Place, Oriented to Person, and Disoriented to Time Social/Functional History Patient admitted from home. Lives With: Alone Type of Home: apartment Home Layout: Single Level Home Home Access: Level Entry Home Equipment: none Homemaking Responsibilities: Independent Receives Help From: None Active Commercial Credit Head: No Prior Level of Function ADL Assistance: Independent Ambulation Assistance: Independent Transfer Assistance: Independent Objective ADLs LE Dressing: Independent Upper Extremity Assessment AROM: WNL PROM: WNL Strength: WNL Vision: reports he needs glasses Hearing: normal Bed Mobility Supine to sit: Independent Sit to supine: Independent Transfers/Functional Mobility Sit to stand: Independent Stand to sit: Independent Toilet: Independent Functional mobility: Independent Device(s) used: none AM-PAC AM-PAC Inpatient Daily Activity Raw Score: 24 ADL Inpatient CMS G-Code Modifier: CH Plan No skilled acute OT indicated at this time. Please reconsult should changes occur. Safety/Education Safety Safety Devices in place: All fall risk precautions in place, call light within reach, and left in bed Restraints: N/A Education Education Given To: patient Education Provided: OT Role Education Method: Verbal Barriers to Learning: None Education Outcome: Verbalized Understanding Goals Patient Stated Goal: n/a Therapy Time Individual Co-treatment Time In 1403 Time Out 1413 Minutes 10 Genevieve Wagner OT Patient's Occupational Therapy Plan of Care supervision is transferred to a [facility] Occupational Therapist. Goals and/or treatment plan was established in collaboration with patient/family/other representatives. Med Team Progress Note Cory Mueller : 1950(72 y.o.) Date: June 19, 2023 Med Team: A Attending: Dr. Hay Chief Complaint: Confusion and decreased memory Subjective: - No acute events overnight. - Currently, patient is resting comfortably in bed. States that he completed his entire breakfast and denies any acute complaints this morning. Asked patient if he knows what brought him into the hospital he states that he cannot remember as he remains confused. States that he lives at home in an apartment with an elevator. He lives alone and typically spends his day watching television. States that he does not have any friends or family members that he speaks to on a regular basis. It appears that he is able to complete all of his ADLs on his own at home. He recently spoke to his sister while he is in the hospital but cannot remember the last time he spoke to her prior to that. States that he typically gets around on a bus. States that he is able to pay his rent but that this previous month his check was held by the completion manager. Informed patient that we spoke to his apartment complex and they said that he could return to his apartment afterwards despite patient thinking that he was kicked out for smoking. They instead only gave him a warning for smoking as his apartment complex is a non-smoking facility. Also spoke to patient regarding his family. He states that he does have an ex- and that he does not have any children with her or with anyone else. He is unable to provide any phone numbers for any relatives or friends at this time. He was under the impression that his sister would be visiting but she has not been by yet. He is A&O x 2 at this time. He also continues to endorse a headache. Review of Systems Constitutional: Negative for chills and fever. HENT: Negative for congestion. Respiratory: Negative for cough, shortness of breath and wheezing. Cardiovascular: Negative for chest pain and leg swelling. Gastrointestinal: Negative for abdominal distention, abdominal pain, constipation, diarrhea, nausea and vomiting. Genitourinary: Negative for dysuria, hematuria and urgency. Neurological: Negative for dizziness, weakness and light-headedness. Psychiatric/Behavioral: Negative for agitation and confusion. Scheduled Meds:folic acid, 1 mg, Oral, Daily melatonin, 5 mg, Oral, Nightly Continuous Infusions: PRN meds used in last 24hrs: Melatonin Objective: BP 130/70 (BP Location: Right arm) Pulse 66 Temp 36.7 C (98 F) (Temporal) Resp 20 Ht 5' 11 (1.803 m) Comment: per chart, pt est 6' Wt 144 lb (65.3 kg) SpO2 98% BMI 20.08 kg/m Physical Exam Vitals reviewed. Constitutional: General: He is not in acute distress. Appearance: Normal appearance. He is not ill-appearing. HENT: Head: Normocephalic and atraumatic. Cardiovascular: Rate and Rhythm: Normal rate and regular rhythm. Pulses: Normal pulses. Heart sounds: Normal heart sounds. No murmur heard. Pulmonary: Effort: Pulmonary effort is normal. No respiratory distress. Breath sounds: Normal breath sounds. No wheezing. Abdominal: General: There is no distension. Palpations: Abdomen is soft. Tenderness: There is no abdominal tenderness. There is no guarding. Musculoskeletal: Right lower leg: No edema. Left lower leg: No edema. Skin: General: Skin is warm. Neurological: Mental Status: He is alert. Comments: A&Ox2 Psychiatric: Mood and Affect: Mood normal. Behavior: Behavior normal. Select Labs within last 24 hours Auto WBC Date Value Ref Range Status 06/19/2023 5.3 3.6 - 10.7 10*3/uL Final Hemoglobin Date Value Ref Range Status 06/19/2023 13.9 13.0 - 18.0 g/dL Final Hematocrit Date Value Ref Range Status 06/19/2023 40.1 40.0 - 52.0 % Final Platelets Date Value Ref Range Status 06/19/2023 197 140 - 440 10*3/uL Final MCV Date Value Ref Range Status 06/19/2023 85.6 80.0 - 98.0 fL Final SODIUM Date Value Ref Range Status 06/19/2023 135 135 - 145 mmol/L Final POTASSIUM Date Value Ref Range Status 06/19/2023 4.4 3.5 - 5.1 mmol/L Final CHLORIDE Date Value Ref Range Status 06/19/2023 105 98 - 107 mmol/L Final CARBON DIOXIDE Date Value Ref Range Status 06/19/2023 23 22 - 30 mmol/L Final UREA NITROGEN Date Value Ref Range Status 06/19/2023 18 9 - 20 mg/dL Final CREATININE Date Value Ref Range Status 06/19/2023 0.89 0.66 - 1.25 mg/dL Final GLUCOSE Date Value Ref Range Status 06/19/2023 88 70 - 100 mg/dL Final CALCIUM Date Value Ref Range Status 06/19/2023 8.8 8.4 - 10.4 mg/dL Final AST (SGOT) Date Value Ref Range Status 06/19/2023 24 15 - 46 U/L Final ALT Date Value Ref Range Status 06/19/2023 16 0 - 49 U/L Final TOTAL PROTEIN Date Value Ref Range Status 06/19/2023 8.0 6.3 - 8.2 g/dL Final BILIRUBIN, TOTAL Date Value Ref Range Status 06/19/2023 0.4 0.2 - 1.3 mg/dL Final ALKALINE PHOSPHATASE Date Value Ref Range Status 06/19/2023 79 38 - 126 U/L Final No results found for: CKTOTAL , CKMB , TROPONINI No results found for: PROCAL , CHOL , TRIG , HDL , TSH , VITD25 , HGBA1C , VANCOTROUGH Assessment and Plan: Delirium Cognitive impairment - A&Ox2 this am and remains confused - MR brain on 06/15 showed diminished cerebral volume and evidence of chronic white matter small vessel ischemic change without acute intracranial abnormality - EEG 06/16 showed no abnormalities - MMSE 20 on initial evaluation - Vitamin B12, TSH, and free T4 WNL - Vitamin D levels low at 27 - Urine drugs screen positive for THC. Ethyl glucuronide negative. - UA and urine culture show no abnormalities - RPR and HIV antibody both negative - Geriatrics following patient, will appreciate recs - Continue thiamine 250 mg IV and folic acid 1 mg tablet - Scheduled nightly melatonin - Will arrange OP follow up with geriatrics - Delirium and fall precautions in place - Discontinued daily labs - Green slipped Headache of unknown etiology - Patient has been endorsing ongoing headache for the past few days - LP performed 06/17. Meningitis/encephalitis PCR negative. Spinal fluids studies show no abnormalities. - PRN tylenol Debility - PT recommending home independently - Awaiting OT recs - Currently working on arranging safe home going plain with TCC, SW, and geriatrics team - Goals of Care: FULL CODE - DVT Prophylaxis: SCD's or Sequential Compression Device - GI Prophylaxis: Not Indicated - Diet: General Disposition: Patient is currently Green slipped. Working on setting up safe home going plan with TCC and geriatrics team. Associated attestation - Sierra Hay MD - 06/19/2023 6:22 PM EST I have discussed the care of Cory Mueller with the medical student and/or resident. I have personally taken a history, examined the patient, and performed the associated medical decision making activities. I have reviewed & verified the attested documentation. Unless otherwise noted below, this documentation reflects the history, physical exam, and medical decision making that I performed myself. Please see note for my personal highlights or additions. Patient seen and examined personally (Date of Service: 06/19/23) No new issues. Only complaint is headache ? From LP, although was present before LP done He is laying in bed each time I come in, depressed affect. No focal findings Working on complicated disposition, his memory is poor, does not have family support, is isolated, no transportation to get to appts, unclear that he could navigate getting to appts on his own. Unclear at this time if it will be safe for him to return home with memory issues and poor support system. Geriatrics following ? Need to address depression Encouraged him to get OOB and walk and sit in chair to avoid weakness. SW and TCC are involved as well for discharge planning. 7AM-5PM: contact resident on [facility] Med A team (found by hoovering over attending's name on left side of patient's chart) 5PM-7AM: contact AI2 (Med Team A or B) or AI3 (Med Team C or D) res I personally spent a total of 35 minutes on date of service preparing to see the patient, performing a medically appropriate examination and evaluation , counseling patient on plan of care, documenting clinical information in the electronic health record, and coordinating care. [facility] Geriatric Medicine Inpatient Consult Service Admission Date: 06/13/2023 Assessment Principal Problem: Delirium Active Problems: Acute metabolic encephalopathy Cognitive impairment Debility History of alcohol abuse Plan Acute Metabolic Encephalopathy --Waxing/waning vs improving - unclear what his cognitive baseline is due to lack of collateral --Etiology likely advanced age, sensory impairments, acute illness, history of alcohol use, and concern for baseline cognitive deficits --Urine drug screen positive for THC. Ethyl glucuronide negative --LP completed yesterday- pending at this time --If agitated, assess for and consider treating for pain --QTc= none on admission --No antipsychotic unless patient is danger to self/others/treatment --Continue scheduled melatonin at HS --Monitor for constipation/urinary retention - last BM 06/17/23 --Encourage PO intake, time up in chair, family visits, supervised ambulation, and sleep hygiene Cognitive deficits --Deficits on initial testing ( on MMSE, CDT 6/) -- Unclear history of cognitive decline at home. Per chart review, sister has not spoken with him in many years despite a short phone call a few months ago, denies history of confusion. Unclear history of decline in ADL's and IADL's --TSH WNL, B12 WNL --Head imaging - MRI brain (06/15/23): Diminished cerebral volume and evidence of chronic white matter small vessel ischemic change without acute intracranial abnormality. --Recommend outpatient follow up at [facility] for more in depth cognitive evaluation when in usual state of health. Debility --Related to physical deconditioning, cognitive deficits --Continue PT/OT as able while inpatient- PT currently recommending home independently, so unable to go to SNF at discharge at this time. Discharge planning recommendations: - There is currently an unclear history of patient's baseline cognitive status or reported historical issues with patient's ability to safely care for himself in the community. Limited family collateral at this time. - Discussed with primary team who reports that they have concerns about patient's ability to return home safely at this time. - Recommend that first CM/SW assess what patient's options are for discharge at this time as the discharge options remain unclear currently. There is unclear documentation about patient's ability to return to his prior living situation- recommend that his apartment is contacted to see if that is an option, if this is his discharge plan recommend APS referral at time of discharge. - Patient also identifies that it is difficult for him to get out to medical appointments due to his lack of having a car at home- recommend evaluating if patient would be able to have house calls provider in home or assistance for setting up rides to go to medical appointments. - During my assessment today, feel that patient DOES have capacity to name a HCPOA- patient identifies that he would like his sister, Gabriela, to act as his HCPOA- recommend confirming with Gabriela that she would be willing to act in this role and if yes, recommend having SW assist in completing this document. - If family is willing to assist with safe discharge planning, recommend that CM and SW assist with identifying options that would be available to this patient (ECF or senior care?) and work with patient and family and choosing a safe discharge plan. Discussed with primary team and RN Follow-up: will follow with you Subjective Chief Complaint: Patient presents with Altered Mental Status Pt is brought into the ED by EMS. Per EMS the pt was found wandering near the [facility] on the [facility]. Pt states that he lives in [place]. Pt states that he remembers getting on the bus this morning. Pt states that he is not sure where he was going when he got on the bus. Pt states that he does not remember much from today. Geriatrics consulted for Episode of confusion and wondering to [facility], unclear etiology. MMSE 20. Concerns for safety at home HPI- The patient is new to me but seen by the Geriatric Inpatient Consult team. 72 y.o. year-old male admitted to acute care from home for confusion. Per H&P, patient was brought from [facility] by EMS. He was supposedly at home watching TV and somehow found himself on the bus and ended up at [facility]. Diagnosed with an amnestic event. Per chart review, lab work in the ED unremarkable. CT head and CXR showed no acute findings. Patient reported to live at home [place] and is able to perform all ADL's. He does not take any medications and has not seen a PCP in years. Per initial geriatric consult note, prior to admission patient was independent in ADL's and most IADL's. He has not driven for the last year and did not want to drive anymore due to the cost. Interval History: Remains on 6W . No reported overnight events, Nursing reports that he has had some waxing/waning orientation Patient denies concerns today, he reports that he knows that he was just at the grocery store but does not recall how he got into that situation. He denies anything like this happening before to him. He states that he lives at home alone. He reports that he had to junk his car, denies there being previous accidents. He states that because he doesn't have a car he walks to the grocery store to get his groceries. He states that he has not seen a primary care doctor in a long time , identifies that it is difficult to get to medical appointments without a car. States that he pays all of his bills on his own, thinks he does OK with this. He reports in an emergency he would either call his sister gabriela or 911. Denies falls at home. He is not sure about his ability to return to his apartment, thinks he may have been kicked out there. He states he feels like he has had some memory issues over the last 6 months. Seen by PT. Supervision assist. Ambulated 65 ft. Recommending home independently. Review of Systems Constitutional: Negative for activity change and fever. HENT: Negative for sore throat and trouble swallowing. Respiratory: Negative for cough and shortness of breath. Cardiovascular: Negative for chest pain. Gastrointestinal: Negative for abdominal pain and constipation. Genitourinary: Negative for difficulty urinating. Musculoskeletal: Negative for arthralgias, gait problem and myalgias. Neurological: Negative for dizziness. Psychiatric/Behavioral: Positive for sleep disturbance. Negative for dysphoric mood. Objective BP 135/73 (BP Location: Right arm) Pulse 64 Temp 36.6 C (97.8 F) (Temporal) Resp 20 Ht 5' 11 (1.803 m) Comment: per chart, pt est 6' Wt 144 lb (65.3 kg) SpO2 97% BMI 20.08 kg/m Intake/Output Summary (Last 24 hours) at 06/18/2023 1601 Last data filed at 06/18/2023 0455 Gross per 24 hour Intake -- Output 750 ml Net -750 ml Wt Readings from Last 3 Encounters: 06/17/23 144 lb (65.3 kg) Current Facility-Administered Medications: acetaminophen (Tylenol) tablet 650 mg, 650 mg, Oral, q6h PRN, Kenneth Solo, DO, 650 mg at 06/17/23 0447 folic acid (Folvite) tablet 1 mg, 1 mg, Oral, Daily, Bradley Millard MD, 1 mg at 06/18/23 0825 melatonin tablet 3 mg, 3 mg, Oral, Nightly PRN, Raymundo Patrick MD, 3 mg at 06/17/232106 melatonin tablet 5 mg, 5 mg, Oral, Nightly, Bradley Millard MD, 5 mg at 06/17/232106 sodium chloride ([place]) 0.65 % nasal spray 1 spray, 1 spray, Each Nostril, PRN, Matty Bryson DO, 1 spray at 06/18/23 0454 Physical Exam Vitals reviewed. Constitutional: No acute distress, thin, frail, mildly disheveled Psych: Mood and affect Appropriate. Good eye contact. Cardiovascular: Regular rate and rhythm, no murmur, no BLE edema Pulmonary/Chest: Clear to auscultation anteriorly, normal respiratory effort, no coughing noted Abdominal: Soft, not distended, no tenderness to palpation, BS present, Neurological: alert, attentive, speech is clear but vague , oriented x knows he is at a hospital, but reports General, he states that the month is June and self, follows commands, no tremor Musculoskeletal: Gait: assessment deferred Skin: warm and dry, no visible rashes or wounds Labs and Imaging: Recent Results (from the past 24 hour(s)) CBC auto differential Collection Time: 06/18/23 4:28 AM Result Value Ref Range Auto WBC 5.1 3.6 - 10.7 10*3/uL RBC 4.53 4.40 - 5.90 10*6/uL Hemoglobin 13.4 13.0 - 18.0 g/dL Hematocrit 38.6 (L) 40.0 - 52.0 % MCV 85.2 80.0 - 98.0 fL MCH 29.6 26.0 - 34.0 pg MCHC 34.7 32.0 - 36.0 % RDW 14.5 11.5 - 14.5 % Platelets 182 140 - 440 10*3/uL MPV 8.0 7.4 - 12.4 fL nRBC 0.1 0.0 - 2.0 /100 WBCs Neutrophils Relative 57.2 40.0 - 80.0 % Lymphocytes Relative 23.9 20.0 - 40.0 % Monocytes Relative 11.2 (H) 2.0 - 10.0 % Eosinophils Relative 6.6 (H) 1.0 - 6.0 % Basophils Relative 1.1 0.0 - 2.0 % Neutrophils Absolute 2.9 1.8 - 7.0 10*3/uL Lymphocytes Absolute 1.2 1.0 - 4.3 10*3/uL Monocytes Absolute 0.6 0.0 - 0.8 10*3/uL Eosinophils Absolute 0.3 0.0 - 0.5 10*3/uL Basophils Absolute 0.1 0.0 - 0.2 10*3/uL Comprehensive metabolic panel Collection Time: 06/18/23 4:28 AM Result Value Ref Range SODIUM 135 135 - 145 mmol/L POTASSIUM 4.3 3.5 - 5.1 mmol/L CHLORIDE 104 98 - 107 mmol/L CARBON DIOXIDE 21 (L) 22 - 30 mmol/L ANION GAP 10 3 - 13 mmol/L UREA NITROGEN 20 9 - 20 mg/dL CREATININE 0.92 0.66 - 1.25 mg/dL GLUCOSE 90 70 - 100 mg/dL CALCIUM 8.7 8.4 - 10.4 mg/dL AST (SGOT) 28 15 - 46 U/L ALT 16 0 - 49 U/L ALKALINE PHOSPHATASE 84 38 - 126 U/L ALBUMIN 3.8 3.5 - 5.0 g/dL BILIRUBIN, TOTAL 0.4 0.2 - 1.3 mg/dL TOTAL PROTEIN 8.0 6.3 - 8.2 g/dL eGFR 88.9 >60.0 mL/min/1.73m*2 Lab Results Component Value Date TSH 1.317 06/13/2023 Lab Results Component Value Date [id number] 06/15/2023 Lab Results Component Value Date VITD25 27 (L) 06/15/2023 Reviewed: allergies, previous encounters, social history, imaging, active problem lists, medications, and labs Family Communication Number Called: [phone] Name of Designated Family Hammer Operator: Gabrieladelores Mueller Relationship: sister Phone Call Outcome: I spoke with the individual listed above. Family Hammer Operator Updated on the Following: Spoke to patients sister about patients current medical status. Informed her that all of our work up for encephalopathy has been negative so far. Told her that we would like to ensure that he has a safe home going plan. Gabriela said that he absolutely cannot live with her because Cory's son lives with her and they do not get along. She states that they would kill each other if they are in the same room and that Cory does not claim him as his son. She did say that she spoke to his ex and that she will be visiting him in the hospital [facility]. She provided Ex Violeta Zheng phone number: . Gabriela said that she cannot think of a single friend or family member that he speaks to anymore. She also stated that he cannot return to his apartment because they kicked him out for smoking as he lives in a non smoking apartment complex. She is unsure when he was kicked out. Med Team Progress Note Cory Mueller : 1950(72 y.o.) Date: June 18, 2023 Med Team: [facility] Attending: Dr. Hay Chief Complaint: Confusion and decreased memory Subjective: - No acute events overnight. - Currently, patient is resting in bed. States that he continues to feel confused and disoriented. Also states that he had difficulties sleeping last night. States that he had 1 bowel movement overnight and denies any diarrhea, hematochezia, and melena. He states that he has been completing his meals and drinking fluids. He is A&Ox2 today. Review of Systems Constitutional: Negative for chills and fever. Respiratory: Negative for shortness of breath and wheezing. Cardiovascular: Negative for chest pain, palpitations and leg swelling. Gastrointestinal: Negative for abdominal pain, constipation, diarrhea, nausea and vomiting. Genitourinary: Negative for dysuria, hematuria and urgency. Neurological: Negative for dizziness, weakness, light-headedness and headaches. Psychiatric/Behavioral: Negative for agitation and confusion. Scheduled Meds:folic acid, 1 mg, Oral, Daily melatonin, 5 mg, Oral, Nightly Continuous Infusions: PRN meds used in last 24hrs: Tylenol, melatonin Objective: BP 129/67 Pulse 69 Temp 36.7 C (98 F) (Temporal) Resp 18 Ht 5' 11 (1.803 m) Comment: per chart, pt est 6' Wt 144 lb (65.3 kg) SpO2 95% BMI 20.08 kg/m Physical Exam Vitals reviewed. Constitutional: General: He is not in acute distress. Appearance: Normal appearance. He is not ill-appearing. HENT: Head: Normocephalic and atraumatic. Cardiovascular: Rate and Rhythm: Normal rate and regular rhythm. Pulses: Normal pulses. Heart sounds: Normal heart sounds. No murmur heard. Pulmonary: Effort: Pulmonary effort is normal. No respiratory distress. Breath sounds: Normal breath sounds. Abdominal: General: There is no distension. Palpations: Abdomen is soft. Tenderness: There is no abdominal tenderness. There is no guarding. Musculoskeletal: Right lower leg: No edema. Left lower leg: No edema. Neurological: Mental Status: He is alert. Comments: A&Ox2 Psychiatric: Mood and Affect: Mood normal. Behavior: Behavior normal. Select Labs within last 24 hours Auto WBC Date Value Ref Range Status 06/18/2023 5.1 3.6 - 10.7 10*3/uL Final Hemoglobin Date Value Ref Range Status 06/18/2023 13.4 13.0 - 18.0 g/dL Final Hematocrit Date Value Ref Range Status 06/18/2023 38.6 (L) 40.0 - 52.0 % Final Platelets Date Value Ref Range Status 06/18/2023 182 140 - 440 10*3/uL Final MCV Date Value Ref Range Status 06/18/2023 85.2 80.0 - 98.0 fL Final SODIUM Date Value Ref Range Status 06/18/2023 135 135 - 145 mmol/L Final POTASSIUM Date Value Ref Range Status 06/18/2023 4.3 3.5 - 5.1 mmol/L Final CHLORIDE Date Value Ref Range Status 06/18/2023 104 98 - 107 mmol/L Final CARBON DIOXIDE Date Value Ref Range Status 06/18/2023 21 (L) 22 - 30 mmol/L Final UREA NITROGEN Date Value Ref Range Status 06/18/2023 20 9 - 20 mg/dL Final CREATININE Date Value Ref Range Status 06/18/2023 0.92 0.66 - 1.25 mg/dL Final GLUCOSE Date Value Ref Range Status 06/18/2023 90 70 - 100 mg/dL Final CALCIUM Date Value Ref Range Status 06/18/2023 8.7 8.4 - 10.4 mg/dL Final AST (SGOT) Date Value Ref Range Status 06/18/2023 28 15 - 46 U/L Final ALT Date Value Ref Range Status 06/18/2023 16 0 - 49 U/L Final TOTAL PROTEIN Date Value Ref Range Status 06/18/2023 8.0 6.3 - 8.2 g/dL Final BILIRUBIN, TOTAL Date Value Ref Range Status 06/18/2023 0.4 0.2 - 1.3 mg/dL Final ALKALINE PHOSPHATASE Date Value Ref Range Status 06/18/2023 84 38 - 126 U/L Final No results found for: CKTOTAL , CKMB , TROPONINI No results found for: PROCAL , CHOL , TRIG , HDL , TSH , VITD25 , HGBA1C , VANCOTROUGH Assessment and Plan: Delirium Cognitive impairment - A&Ox2 this am and remains confused - MR brain on 06/15 showed diminished cerebral volume and evidence of chronic white matter small vessel ischemic change without acute intracranial abnormality - EEG 06/16 showed no abnormalities - MMSE 20 on initial evaluation - Vitamin B12, TSH, and free T4 WNL - Vitamin D levels low at 27 - Urine drugs screen positive for THC. Ethyl glucuronide negative. - UA and urine culture show no abnormalities - RPR and HIV antibody both negative - Geriatrics following patient, will appreciate recs - Continue thiamine 250 mg IV and folic acid 1 mg tablet - Scheduled nightly melatonin - Will arrange OP follow up with geriatrics - Delirium and fall precautions in place - Green slipped Headache of unknown etiology - Patient has been endorsing ongoing headache for the past few days - LP performed yesterday. Meningitis/encephalitis PCR negative. Spinal fluids studies show no abnormalities. - Discontinued acyclovir this am as PCR was negative. - PRN tylenol Debility - PT recommending home independently - Awaiting OT recs - Goals of Care: FULL CODE - DVT Prophylaxis: SCD's or Sequential Compression Device - GI Prophylaxis: Not Indicated - Diet: General Disposition: Patient is currently Green slipped. Will reach out to sister and geriatrics team today to speak about dispo and safe home going plan. Associated attestation - Sierra Hay MD - 06/18/2023 2:18 PM EST I have discussed the care of Cory Mueller with the medical student and/or resident. I have personally taken a history, examined the patient, and performed the associated medical decision making activities. I have reviewed & verified the attested documentation. Unless otherwise noted below, this documentation reflects the history, physical exam, and medical decision making that I performed myself. Please see note for my personal highlights or additions. Patient seen and examined personally (Date of Service: 06/18/23) He has no new complaints. Still has headache. Is eating, walking in room, voiding well. Still endorses memory problems. LP done yesterday, initial results are normal. Will follow up additional studies. Work up for any acute issues regarding mental status change has been complete. I suspect underlying cognitive deficits possibly due to long time alcohol use Geriatrics following, will need follow up in [facility]. Need to work on disposition now, as he is medically ok for discharge. His sister was contacted yesterday. Patient was given her correct number and wants to discuss if he can move in with her. If this is not possible, will work with SW regarding other options-?ECF 7AM-5PM: contact resident on [facility] Med A team (found by hoovering over attending's name on left side of patient's chart) 5PM-7AM: contact AI2 (Med Team A or B) or AI3 (Med Team C or D) res I personally spent a total of 35 minutes on date of service preparing to see the patient, performing a medically appropriate examination and evaluation , counseling patient on plan of care, documenting clinical information in the electronic health record, communicating results to the patient, and coordinating care. Family Communication Number Called: [phone] Name of Designated Family Hammer Operator: Gabriela Keith Relationship: sister Phone Call Outcome: I spoke with the individual listed above. Family Hammer Operator Updated on the Following: Ms. Keith (from [place]) states she and her sister (who lives in [place]) are Cory's only living relatives. They have not spoken with him in many years except a brief phone call a few months ago asking for money. He had apparently cut himself off from the family for unknown reasons. She denies a history of confusion in Cory. States he used to drink alcohol daily but is unsure if he still drinks. She gave an address for him ([address] in [place]). She does not believe he has any close friends or other acquaintances and at this time is unsure whether she would like to be the medical decision maker for him and does not believe her sister would participate as he was apparently not close to her at all. She would like to be given medical updates as she cares for him deeply and was emotional during the conversation. Nutrition Assessment Type and Reason for Visit: Initial, RD Nutrition Re-Screen/LOS (Cachexia) Nutrition Recommendations/Plan: Continue with Regular PO diet as ordered, pt tolerating PO well per chart review and is noted to be Dietary Assist to aide with consistent meal ordering. Pt agrees to ONS, per MNT protocol will initiate Ensure Plus BID, provides 350 kcal & 16 gm protein per serving. RD ordered weight (standing scale) to be obtained to confirm pt's CBW. RD to monitor weight, labs, fluid, mentation, overall nutritional status & follow up weekly. Malnutrition Assessment: Malnutrition Status: Insufficient data (pt estimates weight loss from 150# to CBW, ? 144# weight (vs 107# documented?? this is certainly not felt to be accurate just by viewing pt in bed), ? significance of potential weight change, data is lacking in chart) Context: Acute Illness (vs social/environmental?, pt is a limited historian; hx of EtOH use noted) Findings of the 6 clinical characteristics of malnutrition: Energy Intake: No significant decrease in energy intake (not when reviewing recorded PO intakes acutely (100% recorded), pt was not super descriptive when it comes to baseline PO intake, doesn't live with anyone and appears to lack social support system, do ? baseline nutr intake/adequacy) Weight Loss: Unable to assess (pt believes he has had acute weight loss from ~150#, RD observed bedscale weight of 144# this date which could certainly be generally accurate (some extra blankets noted on bed), standing scale to be ordered to confirm, pt reports UBW 150#,cannot confirm) Body Fat Loss: Mild body fat loss (full NFPE deferred) Buccal region, Orbital Muscle Mass Loss: (mild/moderate, just observed, ? pt's baseline) Temples (temporalis) Fluid Accumulation: No significant fluid accumulation (per chart) Immigration Case Worker Strength: Not Performed Nutrition Assessment: Pt with noted use of tobacco and EtOH without other PMH noted/indicated presented with confusion; per chart, pt was brought in on 06/13 by EMS from [facility], pt had reported being at home watching TV when he found himself somehow on a bus and ended up at [facility], pt cannot remember why he got on the bus or what he was doing, noted to be A&Ox2 at the time; initial work-up was mostly unremarkable, CTH and CXR WNL; pt lives at home alone, doesn't appear to have support system, is able to perfirm ADLs, does not take any medications and has not seen PCP in years; Geriatrics service consulted here, pt reporting last EtOH drink was months ago and denied doing drugs, stated he used to drink a lot more ~15-20 years ago, reported drinking 5 regular beers/day and has been having a tough time with his memory, pt able to state that he 'wants Trump to get elevated' and watches the news all day but did not know when the election year occurred; yesterday pt noted to have worsening delirium, A&Ox1, UDS was + for THC, ethyl glucuronide was negative, UA and urine culture without abnormalities; further work-up was ordered (MRI brain completed, negative) as pt also c/o headache ongoing for ~4-5 days, LP also being pursued, possible HSV encephalitis being covered with acyclovir until meningitis panel results, HIV added as well, per chart there is low concern for these etiologies, ? delirium on top of primary dementia syndrome, green slip placed by medical team; pt had given incorrect phone number for his sister who is noted to be local. Regular PO diet ordered, pt tolerating well per chart. RD visited pt's room this morning, pt resting in bed but able to answer some questions from RD, reporting having 'eggs and coffee' this morning, when asked if there was anything else pt stated 'I think toast too', receipt from breakfast was in room and noted eggs, sausage and korean toast were sent, reports eating well here, was not very descriptive on baseline PO intake, RD asked pt if he is a 3 meal/day type person and he stated 'yeah, usually', RD asked pt if he has any N/V or trouble chewing/swallowing and pt denied, asked pt his UBW and he estimated 150#, asked pt if he thinks he has lost weight recently and he believes he has, RD observed bedscale weight of 144# this date (some extra blankets noted in bed), did offer pt ONS and he agrees. Estimated Daily Nutrient Needs: Energy Requirements Based On: Kcal/kg Weight Used for Energy Requirements: Current (observed by RD) Weight for Energy Calculation (kg): 65.3 kg Total Energy Requirements (kcals/day): 4016-9809 kcal/day (28-30 kcal/kg) Weight Used for Protein Requirements: Current Weight in Kg Used for Protein Requirements: 65.3 kg Estimated Total Protein (g/day): 65-78 gm protein/day (1.0-1.2 gm protein/kg) Estimated Daily Total Fluid (ml/day): per MD Nutrition Related Findings: pt appears better oriented today; +BS, last BM 06/16; No edema indicated; medications and labs reviewed Wound Type: None (Vishal 19) Current Nutrition Therapies: Adult diet Regular Current Oral Intake Average Meal Intake: 76-100% (per chart) Average Supplements Intake: None Ordered Anthropometric Measures: Height: 180.3 cm (5' 11 ) (per chart, pt est 6') Current Body Weight: 65.3 kg (144 lb) (bedscale observed by RD 06/17) Admission Body Weight: 48.7 kg (107 lb 5.8 oz) (? bedscale) Usual Body Weight: 68 kg (150 lb) (per pt; no weight hx however can see from 2018 01/15/2018- 159#) % Weight Change (Calculated): -4 [place] Body Weight (lbs) (Calculated): 172 lbs [place] Body Weight (Kg) (Calculated): 78 kg % [place] Body Weight (Calculated): 83.7 % BMI (kg/m2) (Calculated): 20.1 Weight Adjustment For: No Adjustment BMI Categories: Underweight (BMI less than 22) age over 65 Nutrition Diagnosis: Unintended weight loss related to other (comment) (? etiology) as evidenced by other (comment) (endorsed by pt but hard to 100% confirm using data in chart) Nutrition Interventions: Nutrition Education/Counseling: Education not indicated Coordination of Nutrition Care: Continue to monitor while inpatient, Coordination of Care Plan of Care discussed with: pt briefly Goals: Goals: PO intake 75% or greater, by next RD assessment Nutrition Monitoring and Evaluation: Behavioral-Environmental Outcomes: (N/A) Food/Nutrient Intake Outcomes: Diet Advancement/Tolerance, Food and Nutrient Intake, Supplement Intake Physical Signs/Symptoms Outcomes: Biochemical Data, Meal Time Behavior, Nutrition Focused Physical Findings, Skin, Weight Discharge Planning: Too soon to determine Lyly Acosta RD Contact: Secure chat or *[phone] [facility] Geriatric Medicine Inpatient Consult Service Admission Date: 06/13/2023 Assessment Principal Problem: Delirium Active Problems: Acute metabolic encephalopathy Cognitive impairment Debility History of alcohol abuse Plan Acute Metabolic Encephalopathy --Waxing/waning --Etiology likely advanced age, sensory impairments, acute illness, history of alcohol use, and concern for baseline cognitive deficits --Urine drug screen positive for THC. Ethyl glucuronide negative --Urinalysis and urine culture negative for infection --Ammonia 19, RPR and HIV nonreactive --Consider addiction medicine consult due to history of alcohol use-management per primary team. Continue thiamine --LP completed today, EEG completed yesterday with no seizures observed. --Encourage PO intake, time up in chair, family visits, supervised ambulation, and sleep hygiene --If agitated, assess for and consider treating for pain --QTc= none on admission --No antipsychotic unless patient is danger to self/others/treatment --Continue scheduled melatonin at --Monitor for constipation/urinary retention - last BM 06/16/23 --Possible medication contributions: n/a Cognitive deficits --Deficits on initial testing ( on MMSE). -- Unclear history of cognitive decline at home. Per chart review, sister has not spoken with him in many years despite a short phone call a few months ago, denies history of confusion. Unclear history of decline in ADL's and IADL's --TSH WNL, B12 WNL --Head imaging - MRI brain (06/15/23): Diminished cerebral volume and evidence of chronic white matter small vessel ischemic change without acute intracranial abnormality. --Recommend outpatient follow up at [facility] for more in depth cognitive evaluation when in usual state of health. --Recommend to involve family in conversations regarding discharge planning. Per chart review, primary team was able to contact patient's sister, Gabriela Keith, who states that she and her sister are Cory's only living relatives. Debility --Related to physical deconditioning, cognitive deficits --Continue PT/OT as able while inpatient --Anticipate d/c to TBD, seen by PT recommending home independently. Per primary team note today, it is unclear if he was recently kicked out of his apartment and may have been living on the street, may need assistance with placement. SW following. Vitamin D deficiency Lab Results Component Value Date VITD25 27 (L) 06/15/2023 --Recommend high dose replacement 50,000 Qweek x 8 weeks; follow up with PCP for follow up levels and need for on-going supplementation. Plan discussed with RN. Follow-up: will follow with you Subjective Chief Complaint: Patient presents with Altered Mental Status Pt is brought into the ED by EMS. Per EMS the pt was found wandering near the bob [place] [address]. Pt states that he lives in [facility]. Pt states that he remembers getting on the bus this morning. Pt states that he is not sure where he was going when he got on the bus. Pt states that he does not remember much from today. Geriatrics consulted for Episode of confusion and wondering to bob couch, unclear etiology. MMSE 20. Concerns for safety at home HPI- The patient is new to me but seen by the Geriatric Inpatient Consult team. 72 y.o. year-old male admitted to acute care from home for confusion. Per H&P, patient was brought from [facility] by EMS. He was supposedly at home watching TV and somehow found himself on the bus and ended up at [facility]. Diagnosed with an amnestic event. Per chart review, lab work in the ED unremarkable. CT head and CXR showed no acute findings. Patient reported to live at home [place] and is able to perform all ADL's. He does not take any medications and has not seen a PCP in years. Per initial geriatric consult note, prior to admission patient was independent in ADL's and most IADL's. He has not driven for the last year and did not want to drive anymore due to the cost. Interval History: Remains on 6W . Per review of primary team note yesterday, patient reports he has not drank alcohol in quite a while. Patient was more delirious than the day prior and reported a headache over the past 4-5 days. LP ordered and green slip in place. Per primary team progress note today, patient reports he had recently been kicked out of his apartment due to smoking tobacco, may have been living on the street. Patient cooperative with oral medications. Patient is awake and alert in bed. He states the month is June and the year is 2021. He is alert to self and that he is in the hospital. He is unsure what led him to come to the hospital. He states he did not sleep well overnight and has a headache. He ate lunch this afternoon. He reports he feels nervous awaiting his results from testing this afternoon. He asks for a sleeping pill so he can go to bed. Discussed that he can receive melatonin and bed time this evening. Spoke to RN. No reports of agitation. Patient has had confusion throughout the day. He was forgetful of the month and his date. Seen by PT. Supervision assist. Ambulated 65 ft. Recommending home independently. Review of Systems Constitutional: Positive for fatigue. Negative for activity change and fever. HENT: Negative for sore throat and trouble swallowing. Respiratory: Negative for cough and shortness of breath. Cardiovascular: Negative for chest pain. Gastrointestinal: Negative for abdominal pain and constipation. Genitourinary: Negative for difficulty urinating. Musculoskeletal: Negative for arthralgias, gait problem and myalgias. Neurological: Positive for headaches. Negative for dizziness. Psychiatric/Behavioral: Positive for confusion and sleep disturbance. Negative for dysphoric mood. The patient is nervous/anxious. Objective BP (!) 156/84 (BP Location: Right arm, Patient Position: Lying) Pulse 64 Temp 36.2 C (97.2 F) (Temporal) Resp 17 Ht 5' 11 (1.803 m) Comment: per chart, pt est 6' Wt 144 lb (65.3 kg) SpO2 100% BMI 20.08 kg/m Intake/Output Summary (Last 24 hours) at 06/17/2023 1612 Last data filed at 06/17/2023 1305 Gross per 24 hour Intake 540 ml Output -- Net 540 ml Wt Readings from Last 3 Encounters: 06/17/23 144 lb (65.3 kg) Current Facility-Administered Medications: acetaminophen (Tylenol) tablet 650 mg, 650 mg, Oral, q6h PRN, Kenneth Solo DO, 650 mg at 06/17/23 0447 acyclovir (Zovirax) 500 mg in sodium chloride 0.9 % 100 mL IVPB, 10 mg/kg, IntraVENous, q8h, Kenneth Solo DO, Stopped at 06/17/23 1145 folic acid (Folvite) tablet 1 mg, 1 mg, Oral, Daily, Bradley Millard MD, 1 mg at 06/17/23 0836 melatonin tablet 3 mg, 3 mg, Oral, Nightly PRN, Raymundo Patrick MD, 3 mg at 06/17/23 0446 melatonin tablet 5 mg, 5 mg, Oral, Nightly, Bradley Millard MD, 5 mg at 06/16/23 1955 sodium chloride ([place]) 0.65 % nasal spray 1 spray, 1 spray, Each Nostril, PRN, Matty Bryson DO, 1 spray at 06/17/23 1048 thiamine (Vitamin B1) 250 mg in sodium chloride 0.9 % 100 mL IVPB, 250 mg, IntraVENous, q24h, Bradley Millard MD, Stopped at 06/16/23 1819 Physical Exam Vitals reviewed. Constitutional: No acute distress, thin, frail, mildly disheveled Psych: Mood and affect Appropriate. Good eye contact. Cardiovascular: Regular rate and rhythm, no murmur, no BLE edema Pulmonary/Chest: Clear to auscultation anteriorly, normal respiratory effort, no coughing noted Abdominal: Soft, not distended, no tenderness to palpation, BS present, Neurological: alert, attentive, speech is clear but vague , oriented x place and self, follows commands, no tremor Musculoskeletal: Gait: assessment deferred Skin: warm and dry, no visible rashes or wounds Labs and Imaging: Recent Results (from the past 24 hour(s)) CBC auto differential Collection Time: 06/17/23 4:11 AM Result Value Ref Range Auto WBC 4.4 3.6 - 10.7 10*3/uL RBC 4.47 4.40 - 5.90 10*6/uL Hemoglobin 13.1 13.0 - 18.0 g/dL Hematocrit 38.3 (L) 40.0 - 52.0 % MCV 85.7 80.0 - 98.0 fL MCH 29.3 26.0 - 34.0 pg MCHC 34.2 32.0 - 36.0 % RDW 14.5 11.5 - 14.5 % Platelets 175 140 - 440 10*3/uL MPV 7.9 7.4 - 12.4 fL nRBC 0.0 0.0 - 2.0 /100 WBCs Neutrophils Relative 54.8 40.0 - 80.0 % Lymphocytes Relative 26.6 20.0 - 40.0 % Monocytes Relative 11.2 (H) 2.0 - 10.0 % Eosinophils Relative 6.5 (H) 1.0 - 6.0 % Basophils Relative 0.9 0.0 - 2.0 % Neutrophils Absolute 2.4 1.8 - 7.0 10*3/uL Lymphocytes Absolute 1.2 1.0 - 4.3 10*3/uL Monocytes Absolute 0.5 0.0 - 0.8 10*3/uL Eosinophils Absolute 0.3 0.0 - 0.5 10*3/uL Basophils Absolute 0.0 0.0 - 0.2 10*3/uL Comprehensive metabolic panel Collection Time: 06/17/23 4:11 AM Result Value Ref Range SODIUM 134 (L) 135 - 145 mmol/L POTASSIUM 4.0 3.5 - 5.1 mmol/L CHLORIDE 107 98 - 107 mmol/L CARBON DIOXIDE 23 22 - 30 mmol/L ANION GAP 4 3 - 13 mmol/L UREA NITROGEN 19 9 - 20 mg/dL CREATININE 0.92 0.66 - 1.25 mg/dL GLUCOSE 94 70 - 100 mg/dL CALCIUM 8.4 8.4 - 10.4 mg/dL AST (SGOT) 26 15 - 46 U/L ALT 17 0 - 49 U/L ALKALINE PHOSPHATASE 75 38 - 126 U/L ALBUMIN 3.6 3.5 - 5.0 g/dL BILIRUBIN, TOTAL 0.5 0.2 - 1.3 mg/dL TOTAL PROTEIN 7.4 6.3 - 8.2 g/dL eGFR 88.9 >60.0 mL/min/1.73m*2 Glucose, CSF Collection Time: 06/17/23 1:13 PM Result Value Ref Range GLUCOSE, CSF 55 40 - 70 mg/dL APPEARANCE Clear and Colorless SUPERNATANT Clear and Colorless Protein, CSF Collection Time: 06/17/23 1:13 PM Result Value Ref Range PROTEIN, CSF 36.1 12.0 - 60.0 mg/dL APPEARANCE Clear and Colorless SUPERNATANT Clear and Colorless CSF Cell Count with Reflex Diff - Tube 1 Collection Time: 06/17/23 1:13 PM Result Value Ref Range Tube Number, CSF Tube 1 Appearance, CSF Clear and Colorless Appearance, Supernatant CSF WBC, CSF 1 <5 /mm3 RBC, CSF 1 /mm3 CSF Cell Count with Reflex Diff - Tube 4 Collection Time: 06/17/23 1:13 PM Result Value Ref Range Tube Number, CSF Tube 4 Appearance, CSF Clear and Colorless Appearance, Supernatant CSF WBC, CSF 1 <5 /mm3 RBC, CSF 0 /mm3 Meningitis/Encephalitis PCR Panel (includes HSV PCR and VSV PCR) Collection Time: 06/17/23 1:13 PM Specimen: Lumbar Puncture; Cerebrospinal Fluid Result Value Ref Range Escherichia coli K1 Not Detected Not Detected Haemophilus influenzae Not Detected Not Detected Listeria monocytogenes Not Detected Not Detected Neisseria meningitidis Not Detected Not Detected Streptococcus agalactiae Not Detected Not Detected Streptococcus pneumoniae Not Detected Not Detected Cytomegalovirus Not Detected Not Detected Enterovirus Not Detected Not Detected Herpes simplex virus 1 Not Detected Not Detected Herpes simplex virus 2 Not Detected Not Detected Human herpesvirus 6 Not Detected Not Detected Human parechovirus Not Detected Not Detected Varicella zoster virus Not Detected Not Detected Cryptococcus neoformans/gattii Not Detected Not Detected Culture, Aerobic Bacteria with Gram Stain Collection Time: 06/17/23 1:13 PM Specimen: Lumbar Puncture; Cerebrospinal Fluid Result Value Ref Range Culture Culture in progress Gram Stain Result No polymorphonuclear leukocytes seen Gram Stain Result No organisms seen Cryptococcal Antigen, CSF Collection Time: 06/17/23 1:13 PM Specimen: Lumbar Puncture; Cerebrospinal Fluid Result Value Ref Range Cryptococcal Ag, CSF Not Detected Not Detected Lab Results Component Value Date TSH 1.317 06/13/2023 Lab Results Component Value Date [id number] 06/15/2023 Lab Results Component Value Date VITD25 27 (L) 06/15/2023 Reviewed: allergies, previous encounters, social history, imaging, active problem lists, medications, and labs Images from the original note were not included. PHYSICAL THERAPY [facility] Initial Evaluation Name/MRN: Cory Mueller ([id number]) Evaluation Date: 06/17/2023 Date of : 1950 Admission Date: 06/13/2023 9:56 PM Age: 72 y.o. Room[facility]Bed: [facility] A Discharge Recommendation: Home independently Equipment Needed: No Assessment IMPRESSION: Patient presents with mild balance impairment and is currently requiring supervision for ambulation. He reports independent mobility at home. Recommend home at discharge based on mobility assessment; however, patient cognition may be a limiting factor for safety at home. Diagnosis: delirium Prognosis: good Performance Deficits /Impairments: Decreased Functional Mobility and Decreased Balance Decision Making: Low Complexity Subjective Patient in bed. He is agreeable to PT. Pain: Patient denies pain when questioned but when asked if his headache is resolved he states he still has a headache. Past Medical History: History reviewed. No pertinent past medical history. Past Surgical History: History reviewed. No pertinent surgical history. Admission Diagnosis: Patient Active Problem List Diagnosis Date Noted Acute metabolic encephalopathy 06/15/2023 Cognitive impairment 06/15/2023 Debility 06/15/2023 History of alcohol abuse 06/15/2023 Delirium 06/14/2023 Medical Precautions: Droplet Proper PPE donned/doffed in accordance with facility standards. Fall Risk: [place] Fall Risk Score: 45 (High Risk) Precautions/Restrictions: N/A Family/Caregiver Present: none Overall Cognitive Status: Exceptions - Arousal/alertness: appropriate responses to stimuli - Following commands: follows all commands without difficulty - Memory: decreased recall of biographical information and decreased recall of recent events - Insights: decreased awareness of deficits - Initiation: requires cues for some - Sequencing: does not require cues Overall Orientation Status: Oriented to Place, Patient is able to state name but does not know birthdate, not oriented to date or situation Vision: not assessed this session Hearing: normal Social/Functional History Patient admitted from home. Lives With: Alone Type of Home: apartment Home Layout: Single Level Home Home Access: Level Entry Home Equipment: none Homemaking Responsibilities: Independent Receives Help From: None Active Commercial Credit Head: No Prior Level of Function ADL Assistance: Independent Ambulation Assistance: Independent Transfer Assistance: Independent Objective Lower Extremity Assessment AROM: WFL PROM: Not assessed this session Strength: WFL Bed Mobility: Supine to sit: Modified Independent Sit to supine: Modified Independent Transfers Sit to stand: Modified Independent Stand to sit: Modified Independent Ambulation Ambulation 1 Assistive device(s) used: none Assist level: Supervision Distance (ft): 65 (Limited distance due to patient in isolation room.) Quality of gait: mild instability through all phases Outcome Measures AM-PAC How much HELP from another person do you currently need Turning from your back to your side while in a flat bed without using bedrails?: None Moving from lying on your back to sitting on the side of a flat bed without using bedrails?: None Moving to and from a bed to a chair (including a wheelchair)?: None Standing up from a chair using your arms (wheelchair or bedside chair)?: None Walking in a hospital room?: A Little Stair climbing assessed?: No AM-PAC Inpatient Mobility Raw Score (No Stairs) : 19 [id number] Score: Walked 25 ft or more (i.e. walked outside of room) Plan Pt would benefit from skilled acute PT services to address Strengthening, Balance Training, Functional Mobility Training, Gait Training, and Safety Education and Training. Frequency: 2x/week for 2 weeks Barriers: None Safety/Education Safety Safety Devices in place: call light within reach, left in bed, gait belt, and no alarms engaged upon entry Restraints: No Education Education Given To: patient Education Provided: PT Role, Plan of Care, and Discharge Recommendations Education Method: Verbal Barriers to Learning: Cognition Education Outcome: Verbalized Understanding and Continued Education Needed Goals Patient Stated Goal: Patient is agreeable to PT but when asked about a goal for therapy he states, I don't know. Encounter Problems Encounter Problems (Active) Mobility Patient will ambulate 300 feet with independence and no assistive device in order to improve safety and independence with mobility. Start: 06/17/23 Expected End: 07/01/23 Therapy Time Individual Co-treatment Time In 0845 Time Out 0854 Minutes 9 PPE worn in accordance with [facility] guidelines.] Leticia Leon PT Patient's Physical Therapy Plan of Care supervision is transferred to a [facility] Physical Therapist. Goals and/or treatment plan was established in collaboration with patient/family/other representatives. Med Team Progress Note Cory Mueller : 1950(72 y.o.) Date: June 17, 2023 Med Team: [place] Attending: Dr. Hay Chief Complaint: Confusion and decreased memory Subjective: - No acute events overnight. - Currently, patient is resting comfortably in bed. He continues to have a headache located at his temples bilaterally. He denies chest pain, SOB, fever, chills, N/V, diarrhea, dysuria, and abdominal pain. He remains A&Ox1 and is unable state the year and location. Updated patient on plan for LP today. Review of Systems Constitutional: Negative for chills and fever. HENT: Negative for congestion. Respiratory: Negative for shortness of breath and wheezing. Cardiovascular: Negative for chest pain, palpitations and leg swelling. Gastrointestinal: Negative for abdominal distention, abdominal pain, constipation, diarrhea, nausea and vomiting. Genitourinary: Negative for dysuria, frequency, hematuria and urgency. Neurological: Positive for headaches. Negative for dizziness and light-headedness. Psychiatric/Behavioral: Positive for confusion. Negative for agitation. Scheduled Meds:acyclovir, 10 mg/kg, IntraVENous, q8h folic acid, 1 mg, Oral, Daily melatonin, 5 mg, Oral, Nightly thiamine (Vitamin B1) 250 mg in sodium chloride 0.9 % 100 mL IVPB, 250 mg, IntraVENous, q24h Continuous Infusions: PRN meds used in last 24hrs: Tylenol and melatonin Objective: BP 138/81 (BP Location: Right arm, Patient Position: Lying) Pulse 66 Temp 36.4 C (97.6 F) (Temporal) Resp 20 Ht 6' 0.01 (1.829 m) Wt 107 lb 5.8 oz (48.7 kg) SpO2 98% BMI 14.56 kg/m Physical Exam Vitals reviewed. Constitutional: General: He is not in acute distress. Appearance: He is not ill-appearing (appears disheveled and malnourished). HENT: Head: Normocephalic and atraumatic. Cardiovascular: Rate and Rhythm: Normal rate and regular rhythm. Pulses: Normal pulses. Heart sounds: Normal heart sounds. No murmur heard. Pulmonary: Effort: Pulmonary effort is normal. No respiratory distress. Breath sounds: Normal breath sounds. No wheezing. Abdominal: General: Abdomen is flat. There is no distension. Palpations: Abdomen is soft. Tenderness: There is no abdominal tenderness. There is no guarding. Musculoskeletal: General: Normal range of motion. Right lower leg: No edema. Left lower leg: No edema. Skin: General: Skin is warm. Neurological: Mental Status: He is alert. Comments: A&Ox1 Psychiatric: Mood and Affect: Mood normal. Behavior: Behavior normal. [facility] within last 24 hours Auto WBC Date Value Ref Range Status 06/17/2023 4.4 3.6 - 10.7 10*3/uL Final Hemoglobin Date Value Ref Range Status 06/17/2023 13.1 13.0 - 18.0 g/dL Final Hematocrit Date Value Ref Range Status 06/17/2023 38.3 (L) 40.0 - 52.0 % Final Platelets Date Value Ref Range Status 06/17/2023 175 140 - 440 10*3/uL Final MCV Date Value Ref Range Status 06/17/2023 85.7 80.0 - 98.0 fL Final SODIUM Date Value Ref Range Status 06/17/2023 134 (L) 135 - 145 mmol/L Final POTASSIUM Date Value Ref Range Status 06/17/2023 4.0 3.5 - 5.1 mmol/L Final CHLORIDE Date Value Ref Range Status 06/17/2023 107 98 - 107 mmol/L Final CARBON DIOXIDE Date Value Ref Range Status 06/17/2023 23 22 - 30 mmol/L Final UREA NITROGEN Date Value Ref Range Status 06/17/2023 19 9 - 20 mg/dL Final CREATININE Date Value Ref Range Status 06/17/2023 0.92 0.66 - 1.25 mg/dL Final GLUCOSE Date Value Ref Range Status 06/17/2023 94 70 - 100 mg/dL Final CALCIUM Date Value Ref Range Status 06/17/2023 8.4 8.4 - 10.4 mg/dL Final AST (SGOT) Date Value Ref Range Status 06/17/2023 26 15 - 46 U/L Final ALT Date Value Ref Range Status 06/17/2023 17 0 - 49 U/L Final TOTAL PROTEIN Date Value Ref Range Status 06/17/2023 7.4 6.3 - 8.2 g/dL Final BILIRUBIN, TOTAL Date Value Ref Range Status 06/17/2023 0.5 0.2 - 1.3 mg/dL Final ALKALINE PHOSPHATASE Date Value Ref Range Status 06/17/2023 75 38 - 126 U/L Final No results found for: CKTOTAL , CKMB , TROPONINI No results found for: PROCAL , CHOL , TRIG , HDL , TSH , VITD25 , HGBA1C , VANCOTROUGH Assessment and Plan: Delirium Cognitive impairment - A&Ox1 and more delirious this am - MR brain on 06/15 showed diminished cerebral volume and evidence of chronic white matter small vessel ischemic change without acute intracranial abnormality - EEG yesterday showed no abnormalities - MMSE 20 on initial evaluation - Vitamin B12, TSH, and free T4 WNL - Vitamin D levels low at 27 - Urine drugs screen positive for THC. Ethyl glucuronide negative. - UA and urine culture show no abnormalities - RPR and HIV antibody pending - Geriatrics following patient, will appreciate recs - Continue thiamine 250 mg IV and folic acid 1 mg tablet - Scheduled nightly melatonin - Will arrange OP follow up with geriatrics - Delirium and fall precautions in place - Green slipped today as he is more delirious and only oriented to self. - Will reach out to Ice Platform Supervisor Tejas today to locate NOK. Sisters number provided by patient was not active. Headache of unknown etiology - Patient has been endorsing ongoing headache for the past few days - Plan for lumbar puncture today to rule out encephalopathy etiology in setting of delirium, increased confusion, and headache - Continue acyclovir 500 mg IV for prophylaxis (day 2) - PRN tylenol Debility - Awaiting PT/OT evaluation and recs - Goals of Care: FULL CODE - DVT Prophylaxis: SCD's or Sequential Compression Device - GI Prophylaxis: Not Indicated - Diet: General Disposition: Patient currently Green slipped. Associated attestation - Sierra Hay MD - 06/17/2023 3:35 PM EST I have discussed the care of Cory Mueller with the medical student and/or resident. I have personally taken a history, examined the patient, and performed the associated medical decision making activities. I have reviewed & verified the attested documentation. Unless otherwise noted below, this documentation reflects the history, physical exam, and medical decision making that I performed myself. Please see note for my personal highlights or additions. Patient seen and examined personally (Date of Service: 06/17/23) No new complaints today. Still with some headache. Denies any history of headaches or migraines. Still endorses feeling confused about why he is here. Talks about memory loss prior. Team has been unable to contact his sister- I got an address today, phone number he gave did not work. Today he tells me he had been recently kicked out of his apartment due to smoking tobacco. 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 EEG done was negative Plan today is for LP, but doubt any infectious cause of confusion Team will still attempt to find his sister. May need help from Detective Stubbs in Protective services. Will need SW assistance regarding dispo. May need competency eval by Geriatrics and ?guardianship 7AM-5PM: contact resident on [facility] Med A team (found by hoovering over attending's name on left side of patient's chart) 5PM-7AM: contact AI2 (Med Team A or B) or AI3 (Med Team C or D) res I personally spent a total of 35 minutes on date of service preparing to see the patient, performing a medically appropriate examination and evaluation , counseling patient on plan of care, ordering medications documented above, ordering tests documented above, documenting clinical information in the electronic health record, communicating results to the patient, and coordinating care. Images from the original note were not included. PHYSICAL THERAPY [facility] Name/MRN: Cory Mueller ([id number]) Date: 06/16/2023 PT eval attempted, but pt having continuous EEG in room. Will re-attempt at a later date. Shameka Minor PT Green slip in place by medical team. Patient is on medical hold and cannot leave AMA. Med Team Progress Note Cory Mueller : 1950(72 y.o.) Date: June 16, 2023 Med Team: Rasta Attending: Dr. Alvarez Chief Complaint: Confusion and decreased memory Subjective: - No acute events overnight. - Currently, patient is resting comfortably in bed. States that he had 1 bowel movement this morning and denies any diarrhea, hematochezia, or melena. He denies any chest pain, SOB, fever, chills, nausea/vomiting, dysuria, and abdominal pain. He is A&O x 1. When asked if he knows why he is in the hospital he said he is unsure how he got here and why he is admitted to the hospital. He is unable to recall the year or where he is located. States that he typically smokes half pack a day and has not drank alcohol in quite a while. Informed patient that the phone number he gave us yesterday to contact his sister was not an active phone number. Patient states that he does not know any of his other family members numbers for us to contact. Updated patient on results of MRI brain. Patient had no questions at this time. Review of Systems Constitutional: Negative for chills and fever. HENT: Negative for congestion. Respiratory: Negative for shortness of breath and wheezing. Cardiovascular: Negative for chest pain, palpitations and leg swelling. Gastrointestinal: Negative for abdominal pain, constipation, diarrhea, nausea and vomiting. Genitourinary: Negative for dysuria, frequency and urgency. Neurological: Positive for headaches. Negative for dizziness, weakness and light-headedness. Psychiatric/Behavioral: Positive for confusion. Negative for agitation and sleep disturbance. Scheduled Meds:folic acid, 1 mg, Oral, Daily melatonin, 5 mg, Oral, Nightly thiamine (Vitamin B1) 250 mg in sodium chloride 0.9 % 100 mL IVPB, 250 mg, IntraVENous, q24h Continuous Infusions: PRN meds used in last 24hrs: Tylenol Objective: BP 117/70 (BP Location: Right arm, Patient Position: Sitting) Pulse 65 Temp 36.1 C (97 F) (Temporal) Resp 20 Ht 6' 0.01 (1.829 m) Wt 107 lb 5.8 oz (48.7 kg) SpO2 96% BMI 14.56 kg/m Physical Exam Vitals reviewed. Constitutional: General: He is not in acute distress. Appearance: Normal appearance. HENT: Head: Normocephalic and atraumatic. Cardiovascular: Rate and Rhythm: Normal rate and regular rhythm. Pulses: Normal pulses. Heart sounds: Normal heart sounds. No murmur heard. Pulmonary: Effort: Pulmonary effort is normal. No respiratory distress. Breath sounds: Normal breath sounds. No wheezing. Abdominal: General: There is no distension. Palpations: Abdomen is soft. Tenderness: There is no abdominal tenderness. There is no guarding. Musculoskeletal: General: No tenderness. Right lower leg: No edema. Left lower leg: No edema. Skin: General: Skin is warm. Neurological: Mental Status: He is alert. He is disoriented. Comments: A&Ox1 Psychiatric: Mood and Affect: Mood normal. Behavior: Behavior normal. Select Labs within last 24 hours Auto WBC Date Value Ref Range Status 06/16/2023 3.7 3.6 - 10.7 10*3/uL Final Hemoglobin Date Value Ref Range Status 06/16/2023 13.3 13.0 - 18.0 g/dL Final Hematocrit Date Value Ref Range Status 06/16/2023 38.9 (L) 40.0 - 52.0 % Final Platelets Date Value Ref Range Status 06/16/2023 179 140 - 440 10*3/uL Final MCV Date Value Ref Range Status 06/16/2023 84.9 80.0 - 98.0 fL Final SODIUM Date Value Ref Range Status 06/16/2023 135 135 - 145 mmol/L Final POTASSIUM Date Value Ref Range Status 06/16/2023 4.2 3.5 - 5.1 mmol/L Final CHLORIDE Date Value Ref Range Status 06/16/2023 107 98 - 107 mmol/L Final CARBON DIOXIDE Date Value Ref Range Status 06/16/2023 23 22 - 30 mmol/L Final UREA NITROGEN Date Value Ref Range Status 06/16/2023 20 9 - 20 mg/dL Final CREATININE Date Value Ref Range Status 06/16/2023 0.92 0.66 - 1.25 mg/dL Final GLUCOSE Date Value Ref Range Status 06/16/2023 92 70 - 100 mg/dL Final CALCIUM Date Value Ref Range Status 06/16/2023 8.5 8.4 - 10.4 mg/dL Final AST (SGOT) Date Value Ref Range Status 06/16/2023 29 15 - 46 U/L Final ALT Date Value Ref Range Status 06/16/2023 18 0 - 49 U/L Final TOTAL PROTEIN Date Value Ref Range Status 06/16/2023 7.9 6.3 - 8.2 g/dL Final BILIRUBIN, TOTAL Date Value Ref Range Status 06/16/2023 0.4 0.2 - 1.3 mg/dL Final ALKALINE PHOSPHATASE Date Value Ref Range Status 06/16/2023 74 38 - 126 U/L Final No results found for: CKTOTAL , CKMB , TROPONINI No results found for: PROCAL , CHOL , TRIG , HDL , TSH , VITD25 , HGBA1C , VANCOTROUGH Assessment and Plan: Delirium Cognitive impairment - A&Ox1 and more delirious this am - MMSE 20 on initial evaluation - Vitamin B12, TSH, and free T4 WNL - Vitamin D levels low at 27 - Urine drugs screen positive for THC. Ethyl glucuronide negative. - UA and urine culture show no abnormalities - RPR pending - Ordered HIV antibody - Geriatrics following patient, will appreciate recs - Ordered thiamine 250 mg IV and folic acid 1 mg tablet - Scheduled nightly melatonin - Will arrange OP follow up with geriatrics - MRI brain 06/15 showed no acute abnormalities. - Delirium and fall precautions in place - Will will be placed on Green slip today as he is more delirious and only oriented to self. - Will reach out to Ice Platform Supervisor Adam to locate ABHILASH. Sisters number provided by patient was not active. Agree. Today he is A+O x 1. Seems more confused than yesterday. Does complain of headache for the last 4-5 days and that he doesn't normally get headaches-- something is going on. MRI unremarkable for acute process. Given the headache and confusion will pursue and LP today. I obtained consent, and while he is somewhat confused, he understood what the LP entailed/risks/benefits. While I think unlikely (no fever/leukocytosis/temporal lobe changes or MRI), we will cover for HSV encephalitis with acyclovir until meningitis panel back. RPR pending. Add HIV. This could all very well be a delirium on top of a primary dementia syndrome but given headache and acute presentation feel more workup needed today. Team to place green slip as he can't sign out AMA at this time. Unable to contact sisteryazan (ABHILASH). Phone number he gave doesn't work. Team to ask Ice Platform Supervisor Adams tomorrow for assistance tracking down family. Headache of unknown etiology - Patient has been endorsing ongoing headache for the past few days - Will order lumbar puncture and labs to rule out encephalopathy etiology in setting of delirium, increased confusion, and headache - Started acyclovir 500 mg IV - PRN tylenol Debility - Awaiting PT/OT evaluation and recs - Goals of Care: FULL CODE - DVT Prophylaxis: SCD's or Sequential Compression Device - GI Prophylaxis: Not Indicated - Diet: General Disposition: Remain in GMF for further medical management. I have discussed the care of Cory Mueller with the medical student and/or resident. I have personally taken a history, examined the patient, and performed the associated medical decision making activities. I have reviewed & verified the attested documentation. Unless otherwise noted above, this documentation reflects the history, physical exam, and medical decision making that I performed myself. Please see green and bolded text for my personal highlights or additions to the note. Patient seen and examined by myself on 06/16/23 Nutrition rescreen completed. Patient referred to the Dietitian due to cachexia. LOU Salcedo Med Team Progress Note Cory Mueller : 1950(72 y.o.) Date: June 15, 2023 Med Team: A Attending: Dr. Alvarez Chief Complaint: Confusion and decreased memory Subjective: - No acute events overnight. - Currently, patient is resting in bed. States that he has not had a BM since he has been admitted here. States he is completing his meals and drinking fluids. He has no acute complaints at this time. Spoke to patient about plan for geriatrics evaluation likely today. Patient states he has one sister living in [place] and another in [place]. Patient is okay with medical team contacting sister in [place] for further information. He is A&Ox2. Patient seen and examined on teaching rounds with Dr. Grover. I agree with the above. No complaints from patient today. Review of Systems Constitutional: Negative for chills and fever. Respiratory: Negative for shortness of breath and wheezing. Cardiovascular: Negative for chest pain, palpitations and leg swelling. Gastrointestinal: Negative for abdominal distention, abdominal pain, constipation, diarrhea, nausea and vomiting. Genitourinary: Negative for dysuria, hematuria and urgency. Neurological: Negative for dizziness, numbness and headaches. Psychiatric/Behavioral: Negative for agitation. Scheduled Meds: Continuous Infusions: PRN meds used in last 24hrs: None Objective: BP 138/87 (BP Location: Right arm, Patient Position: Lying) Pulse 66 Temp 36.6 C (97.8 F) (Temporal) Resp 16 Ht 6' 0.01 (1.829 m) Wt 107 lb 5.8 oz (48.7 kg) SpO2 97% BMI 14.56 kg/m Physical Exam Vitals reviewed. Constitutional: General: He is not in acute distress. Appearance: Normal appearance. HENT: Head: Normocephalic and atraumatic. Cardiovascular: Rate and Rhythm: Normal rate and regular rhythm. Pulses: Normal pulses. Heart sounds: Normal heart sounds. Pulmonary: Effort: Pulmonary effort is normal. No respiratory distress. Breath sounds: Normal breath sounds. No wheezing. Abdominal: General: There is no distension. Palpations: Abdomen is soft. Tenderness: There is no abdominal tenderness. There is no guarding. Musculoskeletal: Right lower leg: No edema. Left lower leg: No edema. Skin: General: Skin is warm. Neurological: General: No focal deficit present. Mental Status: He is alert. Psychiatric: Mood and Affect: Mood normal. Select Labs within last 24 hours Auto WBC Date Value Ref Range Status 06/15/2023 4.1 3.6 - 10.7 10*3/uL Final Hemoglobin Date Value Ref Range Status 06/15/2023 14.3 13.0 - 18.0 g/dL Final Hematocrit Date Value Ref Range Status 06/15/2023 41.6 40.0 - 52.0 % Final Platelets Date Value Ref Range Status 06/15/2023 190 140 - 440 10*3/uL Final MCV Date Value Ref Range Status 06/15/2023 85.5 80.0 - 98.0 fL Final SODIUM Date Value Ref Range Status 06/15/2023 134 (L) 135 - 145 mmol/L Final POTASSIUM Date Value Ref Range Status 06/15/2023 4.1 3.5 - 5.1 mmol/L Final CHLORIDE Date Value Ref Range Status 06/15/2023 103 98 - 107 mmol/L Final CARBON DIOXIDE Date Value Ref Range Status 06/15/2023 25 22 - 30 mmol/L Final UREA NITROGEN Date Value Ref Range Status 06/15/2023 20 9 - 20 mg/dL Final CREATININE Date Value Ref Range Status 06/15/2023 1.00 0.66 - 1.25 mg/dL Final GLUCOSE Date Value Ref Range Status 06/15/2023 88 70 - 100 mg/dL Final CALCIUM Date Value Ref Range Status 06/15/2023 8.7 8.4 - 10.4 mg/dL Final AST (SGOT) Date Value Ref Range Status 06/15/2023 37 15 - 46 U/L Final ALT Date Value Ref Range Status 06/15/2023 21 0 - 49 U/L Final TOTAL PROTEIN Date Value Ref Range Status 06/15/2023 7.9 6.3 - 8.2 g/dL Final BILIRUBIN, TOTAL Date Value Ref Range Status 06/15/2023 0.5 0.2 - 1.3 mg/dL Final ALKALINE PHOSPHATASE Date Value Ref Range Status 06/15/2023 88 38 - 126 U/L Final No results found for: CKTOTAL , CKMB , TROPONINI No results found for: PROCAL , CHOL , TRIG , HDL , TSH , VITD25 , HGBA1C , VANCOTROUGH Assessment and Plan: Acute episode of delirium Amnestic event - Vitamin B12, TSH, and free T4 WNL - Geriatrics consulted for recs - MMSE of 20 - Ordered MRI brain for further evaluation - Delirium and fall precautions in place - UA, MAT, ethyl glucuronide pending at this time - RPR and vitamin D also pending - Ordered PT/OT Agree. Await MRI and Geriatrics consult. He gave us permission to jose sister--team will try to get more information. - Goals of Care: FULL CODE - DVT Prophylaxis: SCD's or Sequential Compression Device - GI Prophylaxis: Not Indicated - Diet: General Disposition: Remain on GMF for further medical management. I have discussed the care of Cory Mueller with the medical student and/or resident. I have personally taken a history, examined the patient, and performed the associated medical decision making activities. I have reviewed & verified the attested documentation. Unless otherwise noted above, this documentation reflects the history, physical exam, and medical decision making that I performed myself. Please see green and bolded text for my personal highlights or additions to the note. Patient seen and examined by myself on 06/15/23 Images from the original note were not included. [facility] Geriatric Medicine Inpatient Consult Service Admission Date: 06/13/2023 Consult Date: 06/14/2023 Consult reason: Episode of confusion and wondering to bob couch, unclear etiology. MMSE 20. Concerns for safety at home Geriatric consult acknowledged. Please contact covering physician via Secure Chat with urgent questions or concerns. Consult will be completed on next business day. Nedra White MD 06/14/2023 2:55 PM Pt may not be aware documented in this encounter [facility] 07-02-2023 Note Formatting of this n ote might be different from the original. 7000 was entered into [employer] for the [facility]. Discharge med list transmitted to [facility] via Careport per TCC request. [facility] 07-02-2023 Note Formatting of this n ote might be different from the original. 7000 was entered into [employer] for the [facility]- [facility] [place]. Discharge med list transmitted to [facility] via Careport per TCC request. [facility] 07-01-2023 Note Problem: Safety - Ad ult Goal: Free from fall injury Outcome: Progressing Problem: Neurosensory - Adult Goal: Achieves maximal functionality and self care Outcome: Progressing [facility] 07-01-2023 Note Formatting of this n ote might be different from the original. Chart reviewed. Spoke to patient at bedside re: info that both [facility] and [facility] are able to accept. Patient stated he would prefer [facility]. Facility notified to start auth. [facility] 07-01-2023 Note Formatting of this n ote might be different from the original. Chart reviewed. Spoke to patient at bedside re: info that both [facility] and [facility] are able to accept. Patient stated he would prefer [facility]. Facility notified to start auth. [facility] 07-01-2023 Plan of care note Problem: Safety - Adult Goal: Free from fall injury Outcome: Progressing Problem: Neurosensory - Adult Goal: Achieves maximal functionality and self care Outcome: Progressing [facility] 06-30-2023 Plan of care note Problem: Safety - Adult Goal: Free from fall injury Outcome: Adequate for Discharge Problem: Discharge Planning Goal: Discharge to home or other facility with appropriate resources Outcome: Adequate for Discharge [facility] 06-29-2023 Hospital Discharg e raj Dacosta RN - 06/29/2023 12:15 PM EST Continuity of Care Form Patient Name: Cory Mueller : 1950 Admit date: 06/13/2023 Discharge date: 07/02/23 Code Status Order: Full Code Advance Directives: N Admitting Physician: Sierra Hay MD PCP: No primary care provider on file. 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 No Past Surgical History: History reviewed. No pertinent surgical history. Immunization History: There is no immunization history on file for this patient. Active Problems: Medical Problems Problem List * (Principal) Delirium Acute metabolic encephalopathy Cognitive impairment Debility History of alcohol abuse Isolation/Infection: No active isolations Rule-out Creutzfeldt-Manpreet Disease Nurse Assessment: Last Vital Signs: BP 158/90 (BP Location: Right arm, Patient Position: Lying) Pulse 71 Temp 36.7 C (98 F) (Temporal) Resp 20 Ht 5' 11 (1.803 m) Comment: per chart, pt est 6' Wt 144 lb (65.3 kg) SpO2 97% BMI 20.08 kg/m Last documented pain score (0-10 scale): Last Weight: Wt Readings from Last 1 Encounters: 06/17/23 144 lb (65.3 kg) Mental Status: YESY Patient Mental Status: oriented and alert Forgetful IV Access: YESY IV Access: None Nursing Mobility/ADLs: Walking Independent Transfer Independent Bathing Minimal assistance Dressing Minimal assistance Toileting Independent Feeding Independent Numerical Control Tool Programmer Total assistance Med Delivery yes Wound Care Documentation and Therapy: Elimination: Continence: Bowel: yes Bladder: yes Urinary Catheter: None Colostomy/Ileostomy/Ileal Conduit: None Date of Last BM: 06/30/23 Intake/Output Summary (Last 24 hours) at 06/29/2023 1214 Last data filed at 06/29/2023 0815 Gross per 24 hour Intake 1540 ml Output -- Net 1540 ml I/O last 3 completed shifts: In: 1060 (16.2 mL/kg) [P.O.:1060] Out: - (0 mL/kg) Weight: 65.3 kg Safety Concerns: none Impairments/Disabilities: none Nutrition Therapy: Current Nutrition Therapy: Oral diet: general Routes of Feeding: oral Liquids: no restrictions Daily Fluid Restriction: no Last Modified Barium Swallow with Video (Video Swallowing Test): not done Treatments at the Time of Hospital Discharge: Respiratory Treatments: Oxygen Therapy: is not on home oxygen therapy. Ventilator: No ventilator support Rehab Therapies: nursing Weight Bearing Status/Restrictions: no restriction Other Medical Equipment (for information only, NOT a DME order): none Other Treatments: Patient's personal belongings (please select all that are sent with patient): Clothing RN SIGNATURE: MANAGEMENT/SOCIAL WORK SECTION Inpatient Status Date: 06/14/2023 Readmission Risk Assessment Score: @READMISSIONRISKDETAILS@ Discharging to Facility/ Agency Name: [facility] Address: [address] [place] [address] Dialysis Facility (if applicable) Name: Address: Dialysis Schedule: Phone: Fax: Dining Room Maid/Mopper signature: ICIAN SECTION Prognosis: excellent Condition at Discharge: stable Rehab Potential (if transferring to Rehab): excellent Recommended Labs or Other Treatments After Discharge: none Patient has had persistent COLLIER consistent with tension COLLIER, however had been refractory to multiple therapies. MRI and LP were negative for insidious causes. Physician Certification: I certify the above information and transfer of Cory Mueller is necessary for the continuing treatment of the diagnosis listed and that he requires assisted facility for less than 30 days. Update Admission H&P: No change in H&P PHYSICIAN SIGNATURE: documented in this encounter [facility] 06-28-2023 Note Referral placed to [facility] via Careport per TCC request. Await review and response regarding ability to accept. TCC notified. [facility] 06-28-2023 Note Formatting of this n ote might be different from the original. Referral placed to [facility] via Careport per TCC request. Await review and response regarding ability to accept. TCC notified. [facility] 06-28-2023 Note Formatting of this n ote might be different from the original. Referral placed to [facility] per TCC request. Await review and response regarding ability to accept. TCC notified. [facility] 06-28-2023 Note Formatting of this n ote might be different from the original. Received responses in [facility] are not able to accept. Spoke to patient at bedside and reviewed list. He would like referrals to [facility]. TEAM CDL DRIVER tasked to place referrals. [facility] 06-28-2023 Note Formatting of this n ote might be different from the original. Received responses in [facility] are not able to accept. Spoke to patient at bedside and reviewed list. He would like referrals to [facility]. TEAM CDL DRIVER tasked to place referrals. [facility] 06-28-2023 Note Problem: Safety - Ad ult Goal: Free from fall injury Outcome: Progressing Problem: Discharge Planning Goal: Discharge to home or other facility with appropriate resources Outcome: Progressing Problem: Neurosensory - Adult Goal: Achieves stable or improved neurological status Outcome: Progressing Goal: Achieves maximal functionality and self care Outcome: Progressing Problem: Metabolic/Fluid and Electrolytes - Adult Goal: Glucose maintained within prescribed range Outcome: Progressing Problem: Hematologic - Adult Goal: Maintains hematologic stability Outcome: Progressing [facility] 06-28-2023 Plan of care note Problem: Safety - Adult Goal: Free from fall injury Outcome: Progressing Problem: Discharge Planning Goal: Discharge to home or other facility with appropriate resources Outcome: Progressing Problem: Neurosensory - Adult Goal: Achieves stable or improved neurological status Outcome: Progressing Goal: Achieves maximal functionality and self care Outcome: Progressing Problem: Metabolic/Fluid and Electrolytes - Adult Goal: Glucose maintained within prescribed range Outcome: Progressing Problem: Hematologic - Adult Goal: Maintains hematologic stability Outcome: Progressing [facility] 06-27-2023 Note Referral placed to [facility] via [facility] per TCC request. Await review and response regarding ability to accept. TCC notified. [facility] 06-27-2023 Note Formatting of this n ote might be different from the original. Referral placed to [facility] via [facility] per TCC request. Await review and response regarding ability to accept. TCC notified. [facility] 06-27-2023 Note Formatting of this n ote might be different from the original. Referral placed to [facility] via [facility] per TCC request. Await review and response regarding ability to accept. TCC notified. [facility] 06-27-2023 Note Formatting of this n ote might be different from the original. Provided patient at bedside a choice list. Discussed with patient need for facility with special care for patients with forgetfulness. He agreed and stated that he would prefer to go to a facility in the [facility]. We reviewed the list and he would like referrals to [facility] and [facility]. [facility] tasked to place referrals. [facility] 06-27-2023 Note Formatting of this n ote might be different from the original. Provided patient at bedside a choice list. Discussed with patient need for facility with special care for patients with forgetfulness. He agreed and stated that he would prefer to go to a facility in the [facility]. We reviewed the list and he would like referrals to [facility], [facility] and [facility]. [facility] tasked to place referrals. [facility] 06-27-2023 Note Formatting of this n ote might be different from the original. left with ex-, CHAYO Mcdaniel to discuss facility choices for placement. [facility] 06-27-2023 Note Formatting of this n ote might be different from the original. VM left with ex-, CHAYO Mcdaniel to discuss facility choices for placement. [facility] 06-26-2023 Note Problem: Safety - Ad ult Goal: Free from fall injury Outcome: Progressing Problem: Discharge Planning Goal: Discharge to home or other facility with appropriate resources Outcome: Progressing [facility] 06-26-2023 Note Formatting of this n ote might be different from the original. Left VM this AM to ex- and HCPOA to discuss discuss discharge planning. [facility] 06-26-2023 Note Formatting of this n ote might be different from the original. Left VM this AM to ex- and HCPOA to discuss discuss discharge planning. [employer] [facility] 06-26-2023 Plan of care note Problem: Safety - Adult Goal: Free from fall injury Outcome: Progressing Problem: Discharge Planning Goal: Discharge to home or other facility with appropriate resources Outcome: Progressing [employer] [facility] 06-25-2023 Note Formatting of this n ote might be different from the original. Spoke to patient at bedside to discuss re: placement in a facility at discharge. Patient stated that he would rather go home to his apartment. After more discussion , he agreed that at this point it may be a safe option 2/2 his forgetfulness. He stated that he would agree to have his ex- Violeta assist him with locations if she would be willing. Left VM with Violeta to discuss. SW notified of this conversation. [employer] [facility] 06-25-2023 Note Formatting of this n ote might be different from the original. Spoke to patient at bedside to discuss re: placement in a facility at discharge. Patient stated that he would rather go home to his apartment. After more discussion , he agreed that at this point it may be a safe option 2/2 his forgetfulness. He stated that he would agree to have his ex- Violeta assist him with locations if she would be willing. Left VM with Violeta to discuss. SW notified of this conversation. [employer] 06-24-2023 Note Formatting of this n ote might be different from the original. Met with patient. He stated he still wanted to name his ex -Violeta Mueller as his HCPOA. Patient completed paperwork with my assistance and explanation of what wording means on the form. Will make copies for patient's chart and provide him the original and copy for Violeta . Will follow. [employer] 06-24-2023 Note Formatting of this n ote might be different from the original. Met with patient. He stated he still wanted to name his ex -Violeta Mueller as his HCPOA. Patient completed paperwork with my assistance and explanation of what wording means on the form. Will make copies for patient's chart and provide him the original and copy for Violeta . Will follow. [employer] 06-24-2023 Note Formatting of this n ote might be different from the original. Chart reviewed. Patient is medically stable for discharge however, geriatrics deemed patient lacks decision making capacity for discharge. Per SW note, patient ex- is willing to become patient HCPOA (patient choice) however not the guardian. Patient may need SEE completed for guardianship for placement if med team does not feel patient can discharge home safely. At present , I have been unable to set up home PCP visits. Per med team they will follow patient if discharges home for [facility]. SW and TCC to continue to follow. [employer] 06-24-2023 Note Formatting of this n ote might be different from the original. Chart reviewed. Patient is medically stable for discharge however, geriatrics deemed patient lacks decision making capacity for discharge. Per SW note, patient ex- is willing to become patient HCPOA (patient choice) however not the guardian. Patient may need SEE completed for guardianship for placement if med team does not feel patient can discharge home safely. At present , I have been unable to set up home PCP visits. Per med team they will follow patient if discharges home for [facility]. SW and TCC to continue to follow. [facility] 06-23-2023 Note Med Team Progress No te Cory Mueller : 1950(72 y.o.) Date: June 23, 2023 Med Team: A Attending: Dr. Candelario Chief Complaint: Confusion and decreased memory Subjective: - No acute events overnight. - Currently, patient resting comfortably in bed. Patient has no recollection about the POA discussion we had the day before. Without prompting the patient I asked him who he would choose if someone needed make decisions on his behalf if he were unable to which he responded with his ex-. While on team rounds he was asked the same question by Dr. Candelario and gave the same answer. This multiple questioning over his potential POA shows consistency in who he would want to choose and who he has mentioned in meetings with SW. PRN meds used in last 24hrs: melatonin 3 mg PO tablet Pt seen and examined earlier today on bedside resident teaching rounds. Hx and PE independently obtained; agree with above. Review of Systems Constitutional: Negative for appetite change, fatigue and fever. Respiratory: Negative for chest tightness, shortness of breath and wheezing. Cardiovascular: Negative for chest pain and palpitations. Gastrointestinal: Negative for abdominal pain, diarrhea, nausea and vomiting. Endocrine: Negative for heat intolerance, polyphagia and polyuria. Genitourinary: Negative for difficulty urinating, dysuria and hematuria. Musculoskeletal: Negative for arthralgias, joint swelling and myalgias. Neurological: Positive for headaches. Patient endorsing tension like headache with banding pain around his head Agree. Scheduled Meds:acetaminophen, 1,000 mg, Oral, Daily folic acid, 1 mg, Oral, Daily melatonin, 5 mg, Oral, Nightly thiamine (Vitamin B1) 250 mg in sodium chloride 0.9 % 100 mL IVPB, 250 mg, IntraVENous, Daily [START ON 06/25/2023] thiamine, 100 mg, Oral, Daily Continuous Infusions: Objective: BP 148/85 Pulse 77 Temp 36.1 ?C (96.9 ?F) (Temporal) Resp 20 Ht 5' 11 (1.803 m) Comment: per chart, pt est 6' Wt 144 lb (65.3 kg) SpO2 97% BMI 20.08 kg/m? Physical Exam Constitutional: General: He is not in acute distress. Appearance: Normal appearance. He is not ill-appearing or toxic-appearing. HENT: Head: Normocephalic and atraumatic. Cardiovascular: Rate and Rhythm: Normal rate and regular rhythm. Pulses: Normal pulses. Heart sounds: Normal heart sounds. No murmur heard. No gallop. Pulmonary: Effort: Pulmonary effort is normal. Breath sounds: Normal breath sounds. No wheezing, rhonchi or rales. Abdominal: General: Abdomen is flat. Palpations: Abdomen is soft. Tenderness: There is no abdominal tenderness. There is no guarding. Skin: General: Skin is warm and dry. Neurological: General: No focal deficit present. Mental Status: He is alert. Sensory: No sensory deficit. Comments: A&Ox2 to person and place Psychiatric: Mood and Affect: Mood normal. A&Ox3. Cooperative. Makes good eye contact. HEENT- MMM. Neck-supple Ext- no edema. [facility] within last 24 hours Assessment and Plan: Delirium Cognitive impairment - MR brain on 06/15 showed diminished cerebral volume and evidence of chronic white matter small vessel ischemic change without acute intracranial abnormality - EEG 06/16 showed no abnormalities - MMSE 20 on initial evaluation - Vitamin B12, TSH, and free T4 WNL - Vitamin D levels low at 27 - Urine drugs screen positive for THC. Ethyl glucuronide negative. - UA and urine culture show no abnormalities - RPR, VDRL, and HIV antibody both negative - Thiamine 1 mg tablet PO daily - Scheduled nightly melatonin - Delirium and fall precautions in place - Discontinued daily labs - Green slipped Agree. Lack of capacity - patient does not have capacity per discharge plans per Geriatrics - defer disposition decision making to surrogate decision maker - Recommend pursuing guardianship - Possibility that ex-spouse can possibly be POA for patient in future - pending Agree. Would pursue HCPOA tomorrow/Saturday and ask SW to assist. Pt has been very consistent in his request to have his ex- be his surrogate decision maker. Headache of unknown etiology- suspect tension COLLIER based on pt's description of band-like pressure - Patient has been endorsing ongoing headache for the past few days - LP performed 06/17. Meningitis/encephalitis PCR negative. Spinal fluids studies show no abnormalities. - CTH without contrast 06/13/2023 with no evidence o - Tylenol 1,000 mg AM - Additional 650 mg tylenol BID for persistent headaches Agree. Debility - PT recommending home independently - OT recommending 24 hour supervision or assist - Currently working on arranging safe home going plain with TCC, SW, and geriatrics team - Goals of Care: FULL CODE - DVT Prophylaxis: SCD's or Sequential Compression Device - GI Prophylaxis: Not Indicated - Diet: General Electronically signed by Maggy Rodrigez DO (more content not included)... [facility] 06-22-2023 Plan of care note The patient is Moderately Stable - Low risk of patient condition declining or worsening The patient's goals for the shift include remain safe The clinical goals for the shift include remain safe Problem: Safety - Adult Goal: Free from fall injury Outcome: Progressing Problem: Discharge Planning Goal: Discharge to home or other facility with appropriate resources Outcome: Progressing [facility] 06-22-2023 Note Med Team Progress No te Cory Mueller : 1950(72 y.o.) Date: June 22, 2023 Med Team: Rasta Attending: Dr. Candelario Chief Complaint: Confusion and Decreased memory Subjective: - No acute events overnight. - Currently, patient resting comfortably in bed. Attempted to engage patient about recent decision to allow his ex- to be his HCPOA however in the morning he was unable to recall. During team rounds Dr. Candelario asked him again and he was able to somewhat remember having a discussion about it and when asked who he would choose to be his POA he instantly stated his ex- without prompting. Patient was able to repeat what a HCPOA is and was somewhat able to recall the conversation a few minutes after. No other complaints were noted on examination PRN meds used in last 24hrs: none Pt seen and examined earlier today on bedside resident teaching rounds. Hx and PE independently obtained. Agree with above. Spent time educating pt per what HCPOA means and pt was able to teach back. Endorsed ex- Violeta Mueller. Review of Systems Constitutional: Negative for appetite change, fatigue and fever. Respiratory: Negative for chest tightness, shortness of breath and wheezing. Cardiovascular: Negative for chest pain and palpitations. Gastrointestinal: Negative for abdominal pain, diarrhea, nausea and vomiting. Endocrine: Negative for heat intolerance, polyphagia and polyuria. Genitourinary: Negative for difficulty urinating, dysuria and hematuria. Musculoskeletal: Negative for arthralgias, joint swelling and myalgias. Neurological: Positive for headaches. Patient endorsing tension like headache with banding pain around his head Agree. Did not c/o COLLIER during teaching rounds. Scheduled Meds:acetaminophen, 1,000 mg, Oral, Daily folic acid, 1 mg, Oral, Daily melatonin, 5 mg, Oral, Nightly thiamine (Vitamin B1) 250 mg in sodium chloride 0.9 % 100 mL IVPB, 250 mg, IntraVENous, Daily [START ON 06/25/2023] thiamine, 100 mg, Oral, Daily Objective: BP 139/63 Pulse 66 Temp 36.8 ?C (98.3 ?F) (Temporal) Resp 18 Ht 5' 11 (1.803 m) Comment: per chart, pt est 6' Wt 144 lb (65.3 kg) SpO2 98% BMI 20.08 kg/m? Physical Exam Constitutional: General: He is not in acute distress. Appearance: Normal appearance. He is not ill-appearing or toxic-appearing. HENT: Head: Normocephalic and atraumatic. Cardiovascular: Rate and Rhythm: Normal rate and regular rhythm. Pulses: Normal pulses. Heart sounds: Normal heart sounds. No murmur heard. No gallop. Pulmonary: Effort: Pulmonary effort is normal. Breath sounds: Normal breath sounds. No wheezing, rhonchi or rales. Abdominal: General: Abdomen is flat. Palpations: Abdomen is soft. Tenderness: There is no abdominal tenderness. There is no guarding. Skin: General: Skin is warm and dry. Neurological: General: No focal deficit present. Mental Status: He is alert. Sensory: No sensory deficit. Comments: A&Ox2 to person and place Psychiatric: Mood and Affect: Mood normal. A&O to hospital and name. Cooperative. Makes good eye contact. Speaking in full sentences. Believes he is in hospital due to his poor memory. [facility] within last 24 hours Assessment and Plan: Delirium Cognitive impairment - MR brain on 06/15 showed diminished cerebral volume and evidence of chronic white matter small vessel ischemic change without acute intracranial abnormality - EEG 06/16 showed no abnormalities - MMSE 20 on initial evaluation - Vitamin B12, TSH, and free T4 WNL - Vitamin D levels low at 27 - Urine drugs screen positive for THC. Ethyl glucuronide negative. - UA and urine culture show no abnormalities - RPR, VDRL, and HIV antibody both negative - 1,000 mg thiamine infusion followed by 750 IV infusion - Once administered start PO 1 mg tablet daily - Scheduled nightly melatonin - Delirium and fall precautions in place - Discontinued daily labs - Green slipped Agree. Lack of capacity - patient does not have capacity per discharge plans per Geriatrics - defer disposition decision making to surrogate decision maker - Recommend pursuing guardianship - Possibility that ex-spouse can possibly be POA for patient in future - pending Agree. Will again review with pt in morning. If he can consistently endorse ex- as HCPOA and teach back again the significance, will ask SW to assist in HCPOA execution. Headache of unknown etiology- suspect tension COLLIER based on pt's description of band-like pressure - Patient has been endorsing ongoing headache for the past few days - LP performed 06/17. Meningitis/encephalitis PCR negative. Spinal fluids studies show no abnormalities. - CTH without contrast 06/13/2023 with no evidence o - Tylenol 1,000 mg AM Debility - PT recommending home independently - OT recommending 24 hour supervision or assist - Currently working on arranging safe home going plain with TC (more content not included)... [facility] 06-21-2023 Note Formatting of this n ote might be different from the original. Contacted ex -Violetacarmen Mueller regarding agreeing to be patient's HCPOA if patient still wanted to name her. She is willing although unwilling to apply for Guardianship. She is also unable to provide ongoing supervision and assistance to patient if returns to his apartment. She doubts patient would agree to ecf placement. Violeta reports patient does have a [id number] lives with patient's sister- Gabriela although they do not get along, have not seen each other for a year and patient denies Sandro is his son. Will ask patient if wants to name Violeta as his HCPOA and if so can assist with paperwork. Will follow. [employer] 06-21-2023 Note Formatting of this n ote might be different from the original. Contacted ex -Violeta Mueller regarding agreeing to be patient's HCPOA if patient still wanted to name her. She is willing although unwilling to apply for Guardianship. She is also unable to provide ongoing supervision and assistance to patient if returns to his apartment. She doubts patient would agree to ecf placement. Violeta reports patient does have a [id number] lives with patient's sister- Gabriela although they do not get along, have not seen each other for a year and patient denies Sandro is his son. Will ask patient if wants to name Violeta as his HCPOA and if so can assist with paperwork. Will follow. [employer] 06-21-2023 Note Med Team Progress No te Cory Mueller : 1950(72 y.o.) Date: June 21, 2023 Med Team: Rasta Attending: Dr. Fagan Chief Complaint: Confusion and decreased memory Subjective: - No acute events overnight. - Currently, patient resting comfortably in bed with no new complaints. Patient continues to express poor insight with regards to his current hospitalization. Today he is A&O to person and place but not to time or significant events. Patient continues to endorse tension like headache which he endorses is worse compared to previous encounters. During team rounds Dr. Candelario was able to assess patient's distant recall by asking him questions about his favorite western tv shows growing up (watching reruns of old shows on TV). Patient was able to recall the names and even characters of certain shows revealing more animation and engagement during this part of pt interaction. No other complaints were noted on examination PRN meds used in last 24hrs: Tylenol Pt seen and examined earlier today on bedside resident teaching rounds. Hx and PE independently obtained. Resting comfortably in bed. When asked, believes he is in hospital for his COLLIER. Unable to provide any other info per medical hx or workup to date. Review of Systems Constitutional: Negative for appetite change, fatigue and fever. Respiratory: Negative for chest tightness, shortness of breath and wheezing. Cardiovascular: Negative for chest pain and palpitations. Gastrointestinal: Negative for abdominal pain, diarrhea, nausea and vomiting. Endocrine: Negative for heat intolerance, polyphagia and polyuria. Genitourinary: Negative for difficulty urinating, dysuria and hematuria. Musculoskeletal: Negative for arthralgias, joint swelling and myalgias. Neurological: Positive for headaches. Patient endorsing tension like headache with banding pain around his head Agree. Scheduled Meds:[START ON 06/22/2023] acetaminophen, 1,000 mg, Oral, Daily folic acid, 1 mg, Oral, Daily melatonin, 5 mg, Oral, Nightly thiamine (Vitamin B1) 500 mg in sodium chloride 0.9 % 100 mL IVPB, 500 mg, IntraVENous, TID And [START ON 06/22/2023] thiamine (Vitamin B1) 250 mg in sodium chloride 0.9 % 100 mL IVPB, 250 mg, IntraVENous, Daily [START ON 06/25/2023] thiamine, 100 mg, Oral, Daily Objective: BP 147/93 Pulse 66 Temp 36.6 ?C (97.8 ?F) (Temporal) Resp 18 Ht 5' 11 (1.803 m) Comment: per chart, pt est 6' Wt 144 lb (65.3 kg) SpO2 97% BMI 20.08 kg/m? Physical Exam Constitutional: General: He is not in acute distress. Appearance: Normal appearance. He is not ill-appearing or toxic-appearing. HENT: Head: Normocephalic and atraumatic. Cardiovascular: Rate and Rhythm: Normal rate and regular rhythm. Pulses: Normal pulses. Heart sounds: Normal heart sounds. No murmur heard. No gallop. Pulmonary: Effort: Pulmonary effort is normal. Breath sounds: Normal breath sounds. No wheezing, rhonchi or rales. Abdominal: General: Abdomen is flat. Palpations: Abdomen is soft. Tenderness: There is no abdominal tenderness. There is no guarding. Skin: General: Skin is warm and dry. Neurological: General: No focal deficit present. Mental Status: He is alert. Sensory: No sensory deficit. Comments: A&Ox2 to person and place Psychiatric: Mood and Affect: Mood normal. Awake, alert, oriented to name. Cooperative. Makes good eye contact. HEENT- MMM. Neck-supple Cor- RRR, nl S1S2. Lungs- CTA. Abd (+) BS, soft NT. Assessment and Plan: Delirium Cognitive impairment - MR brain on 06/15 showed diminished cerebral volume and evidence of chronic white matter small vessel ischemic change without acute intracranial abnormality - EEG 06/16 showed no abnormalities - MMSE 20 on initial evaluation - Vitamin B12, TSH, and free T4 WNL - Vitamin D levels low at 27 - Urine drugs screen positive for THC. Ethyl glucuronide negative. - UA and urine culture show no abnormalities - RPR, VDRL, and HIV antibody both negative - 1,000 mg thiamine infusion followed by 750 IV infusion - Once administered start PO 1 mg tablet daily - Scheduled nightly melatonin - Delirium and fall precautions in place - Discontinued daily labs - Green slipped Agree. Lack of capacity - patient does not have capacity per discharge plans per Geriatrics - defer disposition decision making to surrogate decision maker - Recommend pursuing guardianship Per MYNOR Waterman on Epic Chat this afternoon: I spoke with ex -Violeta Mueller. She is willing to be his HCPOA if all feels he can complete this. Although she can not oversee his daily needs and handle finances etc. she would not apply to be his Guardian at this point. -- Will need to d/w pt on rounds tomorrow to see if he is agreeable to this. If so, and able to teach back what a HCPOA will be able to do, will ask for assistance with SW to complete paperwork over weekend. Still need to e (more content not included)... [facility] 06-20-2023 Note Formatting of this n ote might be different from the original. Rn Psychiatric following case for Discharge Needs. [employer] 06-20-2023 Note Formatting of this n ote might be different from the original. Rn Psychiatric following case for Discharge Needs. [employer] 06-20-2023 Note Formatting of this n ote might be different from the original. Spoke to Dr. Fagan in office today. She stated that [facility] would likely be able to follow patient in the community until a PCP can be established through home visits. MCKINNEY liaisonAdam, tasked in careport with this information so that patient can have HHC at discharge. I placed calls to multiple home visit companies: -[facility] at [phone] -unable to accept, does not take his insurance -[facility]: [phone] -left [facility] at [phone] -patient lives out of area/ provided me with number [phone] -spoke to Violeta at above number, who stated patient needs a provider to qualify and [place] she transferred me to [facility] to see if they would make an exception to see. Spoke to Gilda who stated an exception to provider rule is unlikely but provided me with number [phone] and stated should talk to Sierra Avendano, the assistant cross country coach. -[facility] at [phone] -spoke to Violeta. She stated they are at capacity and on an 8 week wait list. I provided her with patient information and Gabriela Mueller's number (sister) for contact if and when they may be able to accept. Patient did not have a phone number in his chart. Number to call and inquire about set up, place on list is [phone]. [employer] 06-20-2023 Note Formatting of this n ote might be different from the original. Spoke to Dr. Fagan in office today. She stated that [facility] would likely be able to follow patient in the community until a PCP can be established through home visits. HANK farrisisonAdam, tasked in careport with this information so that patient can have HHC at discharge. I placed calls to multiple home visit companies: -[facility] at [phone] -unable to accept, does not take his insurance -[facility]: [phone] -left -[facility] at [phone] -patient lives out of area/ provided me with number [phone] -spoke to Violeta at above number, who stated patient needs a provider to qualify and he is [place] her [place])/ she transferred me to [facility] to see if they would make an exception to see. Spoke to Gilda who stated an exception to provider rule is unlikely but provided me with number [phone] and stated should talk to Sierra Avendano, the assistant cross country coach. -[facility] at [phone] -spoke to Violeta. She stated they are at capacity and on an 8 week wait list. I provided her with patient information and Gabriela Mueller's number (sister) for contact if and when they may be able to accept. Patient did not have a phone number in his chart. Number to call and inquire about set up, place on list is [phone]. [facility] 06-20-2023 Note Formatting of this n ote might be different from the original. Chart reviewed. Geriatric MD to see today to assess capacity. Will attempt home visit with new PCP if discharged home. Patient will not be able to have HHC until a PCP is established. Will have SW make DH referral if patient discharged home as well as APS referral if recommended. TCC and SW to continue to follow. [facility] 06-20-2023 Note Formatting of this n ote might be different from the original. Chart reviewed. Geriatric MD to see today to assess capacity. Will attempt home visit with new PCP if discharged home. Patient will not be able to have HHC until a PCP is established. Will have SW make DH referral if patient discharged home as well as APS referral if recommended. TCC and SW to continue to follow. [facility] [employer] 06-19-2023 Nurse Note Patient c/o headache 11/26. Tylenol was given earlier in the day for c/o headache. No relief. Informed . doesn't want to order any new medications at this time due to his mentation. Will continue to monitor. [facility] 06-19-2023 Nurse Note Patient c/o headache 11/26. Tylenol was given earlier in the day for c/o headache. No relief. Informed MD. doesn't want to order any new medications at this time due to his mentation. Will continue to monitor. Patient arrived from , Dr. Hany Deng was in to speak with the patient regarding LP, consent was obtained. Patient was placed prone on exam table prepped and draped in sterile fashion. 12cc of clear CSF was collected for labs. Patient tolerated procedure well. Transferring to . . Pt arrives to room 629 he is currently AOx4, denies pain. He states the grocery store called the ambulance because he was unaware how he need up there. No open areas on his skin, same is pink warm and dry. Addendum: During assessment, pt does ask the same question a number of times and does not recall doing so. documented in this encounter [facility] 06-19-2023 Note OCCUPATIONAL THERAPY [facility] Initial Evaluation Name/MRN: Cory Mueller ([id number]) Evaluation Date: 06/19/2023 Date of : 1950 Admission Date: 06/13/2023 9:56 PM Age: 72 y.o. Room/Bed: [facility] A Discharge Recommendation: 24 hour supervision or assist (if family is unable to provide 24/7 supervision then recommend a facility that can provide 24/7) Equipment Needed: No Assessment IMPRESSION: Pt presented with delirium. Pt previously IND with ADLs, IADLs, and mobility. Pt currently at his functional baseline but pt did fail the JENISE safety awareness questions indicating he is unsafe to return home alone at this time. OT recommending 24/7 supervision, if family is unable to provide then recommend a facility that can provide 24/7. Performance Deficits /Impairments: Decreased Cognition Prognosis: Good Decision Making: Low Complexity Subjective Pt supine in bed, agreeable to OT eval. Pain: Pt denies any current pain. Past Medical History: History reviewed. No pertinent past medical history. Past Surgical History: History reviewed. No pertinent surgical history. Admission Diagnosis: Patient Active Problem List Diagnosis Date Noted Acute metabolic encephalopathy 06/15/2023 Cognitive impairment 06/15/2023 Debility 06/15/2023 History of alcohol abuse 06/15/2023 Delirium 06/14/2023 Medical Precautions: No active isolations Proper PPE donned/doffed in accordance with facility standards. Fall Risk: [place] Fall Risk Score: 45 (High Risk) Precautions/Restrictions: N/A Family/Caregiver Present: none Overall Cognitive Status: OT asked pt JENISE safety awareness questions and pt was unable to answer them correctly indicating he is unsafe to return home alone. Overall Orientation Status: Oriented to Place, Oriented to Person, and Disoriented to Time Social/Functional History Patient admitted from home. Lives With: Alone Type of Home: apartment Home Layout: Single Level Home Home Access: Level Entry Home Equipment: none Homemaking Responsibilities: Independent Receives Help From: None Active Commercial Credit Head: No Prior Level of Function ADL Assistance: Independent Ambulation Assistance: Independent Transfer Assistance: Independent Objective ADLs LE Dressing: Independent Upper Extremity Assessment AROM: WNL PROM: WNL Strength: WNL Vision: reports he needs glasses Hearing: normal Bed Mobility Supine to sit: Independent Sit to supine: Independent Transfers/Functional Mobility Sit to stand: Independent Stand to sit: Independent Toilet: Independent Functional mobility: Independent Device(s) used: none AM-PAC AM-PAC Inpatient Daily Activity Raw Score: 24 ADL Inpatient CMS G-Code Modifier: CH Plan No skilled acute OT indicated at this time. Please reconsult should changes occur. Safety/Education Safety Safety Devices in place: All fall risk precautions in place, call light within reach, and left in bed Restraints: N/A Education Education Given To: patient Education Provided: OT Role Education Method: Verbal Barriers to Learning: None Education Outcome: Verbalized Understanding Goals Patient Stated Goal: n/a Therapy Time Individual Co-treatment Time In 1403 Time Out 1413 Minutes 10 Genevieve Wagner OT Patient's Occupational Therapy Plan of Care supervision is transferred to a [facility] Occupational Therapist. Goals and/or treatment plan was established in collaboration with patient/family/other representatives. [facility] 06-19-2023 Note Formatting of this n ote might be different from the original. Updated patient that his sister is willing to be his HCPOA. He does not want to name her,likely since he can not stay with her he does not want her into his buisiness. Will follow. [facility] 06-19-2023 Note Formatting of this n ote might be different from the original. Updated patient that his sister is willing to be his HCPOA. He does not want to name her,likely since he can not stay with her he does not want her into his buisiness. Will follow. [facility] 06-19-2023 Note Formatting of this n ote might be different from the original. Chart reviewed. Per SW, patient is unable to move in with his sister however, she is agreeable to being the HCPOA. SW intends to complete. I spoke to patient at bedside about housing. He stated that he would agree to return to his apartment. I discussed with him setting up house calls for his PCP. He agrees. Placed call to [facility] and left VM to set up home visits. TCC and SW to continue to follow [employer] [facility] 06-19-2023 Note Formatting of this n ote might be different from the original. Chart reviewed. Per SW, patient is unable to move in with his sister however, she is agreeable to being the HCPOA. SW intends to complete. I spoke to patient at bedside about housing. He stated that he would agree to return to his apartment. I discussed with him setting up house calls for his PCP. He agrees. Placed call to [facility] and left VM to set up home visits. TCC and SW to continue to follow [facility] [employer] 06-19-2023 Note Formatting of this n ote might be different from the original. Also spoke with sister-Gabriela regarding HCPOA-she is willing. Did explain what all that means and she would be the contact in the future regarding medical issues. Will work with patient on paperwork. [facility] [employer] 06-19-2023 Note Formatting of this n ote might be different from the original. Also spoke with sister-Gabriela regarding HCPOA-she is willing. Did explain what all that means and she would be the contact in the future regarding medical issues. Will work with patient on paperwork. [employer] 06-19-2023 Note Formatting of this n ote might be different from the original. Contacted sister- Gabriela Mueller-[phone]. She states she and family have not seen patient in many years. Patient just stopped conversing with them years ago. Patient unable to stay with Gabriela as her grandson-supposedly patient's son lives with her and they would never get along. Gabriela stated ex - Violeta Mueller-(number listed in contacts) was to visit patient at some point. No family even knew patient was in the hospital. Per Violeta, patient has lived in his apartment for years. Sister acknowledges patient uses the bus or walks-has no car. Sister will not be visiting has had recent covid. She does not know why patient has broken ties with family years ago. Will follow. [employer] 06-19-2023 Note Formatting of this n ote might be different from the original. Contacted sister- Gabriela Mueller-[phone]. She states she and family have not seen patient in many years. Patient just stopped conversing with them years ago. Patient unable to stay with Gabriela as her grandson-supposedly patient's son lives with her and they would never get along. Gabriela stated ex - Violeta Mueller-(number listed in contacts) was to visit patient at some point. No family even knew patient was in the hospital. Per Violeta, patient has lived in his apartment for years. Sister acknowledges patient uses the bus or walks-has no car. Sister will not be visiting has had recent covid. She does not know why patient has broken ties with family years ago. Will follow. [employer] [facility] 06-19-2023 Plan of care note The patient is Moderately Stable - Low risk of patient condition declining or worsening The patient's goals for the shift include remain safe The clinical goals for the shift include remain safe Problem: Safety - Adult Goal: Free from fall injury Outcome: Progressing Problem: Discharge Planning Goal: Discharge to home or other facility with appropriate resources Outcome: Progressing Problem: Problem Interventions Goal: Assess Nutritional Intake Outcome: Progressing [employer] [facility] [employer] 06-18-2023 Note Formatting of this n ote might be different from the original. Social Work consulted for housing- patient kicked out of his apartment. Reviewed chart, met with patient to discuss. Patient states he was kicked out of his apartment-[facility] in [place] for smoking in his apartment. CUSTOMER SERVICE PROFESSIONAL contacted [employer]. Call received back from Yudith landa to the building inspector-Saloni Goyo. Yudith stated patient is not kicked out, only received a warning about smoking in his apartment . Patient states he does not like it there-too many rules and wants to move in with his sister-Gabriela. Patient states Gabriela is planning to visit him today or tomorrow. Will follow and speak with sister tomorrow as well regarding the option of patient moving in with her. Patient to discuss with this with her. Will follow. [facility] [employer] 06-18-2023 Note Formatting of this n ote might be different from the original. Social Work consulted for housing- patient kicked out of his apartment. Reviewed chart, met with patient to discuss. Patient states he was kicked out of his apartment-[facility] in [place] for smoking in his apartment. CUSTOMER SERVICE PROFESSIONAL contacted [employer]. Call received back from Yudith landa to the building inspector-Saloni Goyo. Yudith stated patient is not kicked out, only received a warning about smoking in his apartment . Patient states he does not like it there-too many rules and wants to move in with his sister-Gabriela. Patient states Gabriela is planning to visit him today or tomorrow. Will follow and speak with sister tomorrow as well regarding the option of patient moving in with her. Patient to discuss with this with her. Will follow. [facility] 06-18-2023 Consult note Associated Order (s): IP CONSULT TO SOCIAL WORK M[facility] Social Work care coordination note. [facility] 06-18-2023 Consult note Associated Order (s): IP CONSULT TO SOCIAL WORK Mj Social Work care coordination note. Associated Order(s): IP CONSULT TO GERIATRICS [facility] Geriatric Medicine Inpatient Consult Service Admission Date: 06/13/2023 Admission Status: INPATIENT Chief Complaint: Chief Complaint Patient presents with Altered Mental Status Pt is brought into the ED by EMS. Per EMS the pt was found wandering near the bob [place] on the [address]. Pt states that he lives in [place]. Pt states that he remembers getting on the bus this morning. Pt states that he is not sure where he was going when he got on the bus. Pt states that he does not remember much from today. Reason for Appointment Geriatrics consulted for Episode of confusion and wondering to bob couch, unclear etiology. MMSE 20. Concerns for safety at home . Assessment/Plan Principal Problem: Delirium Active Problems: Acute metabolic encephalopathy Cognitive impairment Debility History of alcohol abuse Acute metabolic encephalopathy in the setting of cognitive impairment +/- wernicke's encephalopathy. - MMSE 20-21 - B12, TSH - both wnl - Ammonia - LFTs - wnl - MAT - ethyl glucuronide --Risk factors: advanced age, sensory impairments, acute illness, history of delirium, and baseline cognitive deficits --Encourage PO intake, time up in chair, family visits, supervised ambulation, and sleep hygiene --If agitated, assess for and consider treating for pain --QTc= No ECG done - will order ECG --No antipsychotic unless patient is danger to self/others/treatment --Start scheduled melatonin at HS --Monitor for constipation/urinary retention - last BM unknown - melatonin - will have the patient follow up on an OP basis. - RPR pending - MRI head already ordered - agree. - CIWA - thiamine - consider ADM consult - management per primary team. - patient to follow up with [facility] on an OP basis, once at baseline - he prefers to be seen at [facility]. Agree - would recommend to reach out to director of family service center [place] to corroborate patient's history. Agree. At this time, we have no collateral history or knowledge of his living environment. We need to be able to contact someone who can speak to his baseline. - multiple labs already ordered by primary team. Debility - Vitamin D - PT/OT Will follow with the patient. Subjective: HPI 72 y.o. year-old male presented from home for AMS. Conversation with patient: Patient states he was not able to think clearly and that is why he is here. Patient thinks he was in a store, not sure what the store was called. Patient is not sure how he ended up at the hospital. He thinks he took a bus to the hospital so that he can have money to get anything else . Patient is a poor historian. Patient states that his last drink was months ago. He denies doing any drugs. He does not take any medications at home. Patient states he used to drink a lot more - 15-20 years ago. He reports drinking 4 regular beers per day. Patient states that he has been having a tough time with his memory. He denies having any CP, SOB, n/v/d, fevers, chills, and night sweats. Last BM was today. No urgency, frequency, or dysuria. Patient states he wants kurt to get elected and watches the news all day, but did not know when the election year occurred. Patient states he has been paying his rent through his bank, but does not remember which bank he uses. On chart review: Patient was brought from [facility] by EMS. Patient supposedly was at home watching TV and somehow found himself on the bus and ended up at [facility]. Concern for an amnestic episode. Pleasant and cooperative but vague when pressed for specific details. Thinks that he went to the store looking for help from someone because of his confusion. Fairly nonplussed about admission and does not seem to be anxious about leaving the hospital. Conversation with caregiver: Sister - Gabriela Mueller - [phone] - patient provided this phone number, which has been disconnected. Patient has not spoken to his sister in approximately 5-6 months. Patient denies having any friends in the area - states that he stays at home and watches TV all day. Advance Care Planning Healthcare Power ofAttorney: No Financial Power of Svp Research And Strategic Analysis: No Living Will:No Code Status: Full code No Known Allergies Current Facility-Administered Medications: acetaminophen (Tylenol) tablet 650 mg, 650 mg, Oral, q6h PRN, Kenneth Solo, DO, 650 mg at 06/15/23 1416 History reviewed. No pertinent past medical history. History reviewed. No pertinent surgical history. Social History Social History Tobacco Use Smoking status: Every Day Packs/day: .5 Types: Cigarettes Smokeless tobacco: Never Substance Use Topics Alcohol use: Not on file Social History Social History Narrative Not on file Patient Currently Lives: apartment - lives by himself. Level of FamilySupport: The patient lacks significant family support. - he has one sister - has not spoken to her in 4-5 months. He does not have any children or spouse. Community Resources: no Elder Abuse: no Education Level: High School graduate Family History No family history on file. No family status information on file. Dad had issues with alcohol abuse. Family history reviewed as above Review of Systems Constitutional: Negative for chills and fever. HENT: Negative for ear discharge, ear pain, rhinorrhea and sore throat. Eyes: Negative for pain and discharge. Respiratory: Negative for cough, chest tightness and shortness of breath. Cardiovascular: Negative for chest pain, palpitations and leg swelling. Gastrointestinal: Negative for abdominal pain, constipation, diarrhea, nausea and vomiting. Genitourinary: Negative for dysuria, frequency, hematuria and urgency. Musculoskeletal: Negative for arthralgias and gait problem. Skin: Negative for pallor and rash. Neurological: Negative for seizures, syncope, facial asymmetry and headaches. Psychiatric/Behavioral: Negative for agitation and confusion. The patient is not nervous/anxious. Depression Screening: PHQ-2 Over the past 2 weeks, how often have you been botheredby any of the following problems? 1) Little interest or pleasure in doing things: No 2)Felling down, depressed, or hopeless: No Functional Status (I: Independent, A: Assisted, D: Dependent) ADLs I A D Notes Bathing [x] [] [] Dressing [x] [] [] Toileting [x] [] [] Transfers [x] [] [] Feeding [x] [] [] Ambulation [x] [] [] Assistive devices: none IADLs I A D { Telephone [x] [] [] Transportation [] [] [x] Driving safety concerns: No - patient has not driven for the last year. He junked his car, and did not want to drive anymore 2/2 cost. Shopping [x] [] [] Meal prep [x] [] [] Housework [x] [] [] Medications [x] [] [] Finances [x] [] [] Objective: BP 138/87 (BP Location: Right arm, Patient Position: Lying) Pulse 66 Temp 36.6 C (97.8 F) (Temporal) Resp 16 Ht 6' 0.01 (1.829 m) Wt 107 lb 5.8 oz (48.7 kg) SpO2 97% BMI 14.56 kg/m No intake or output data in the 24 hours ending 06/15/23 1528 Wt Readings from Last 3 Encounters: 06/14/23 107 lb 5.8 oz (48.7 kg) Physical Exam Constitutional: Appearance: Normal appearance. HENT: Head: Normocephalic and atraumatic. Right Ear: External ear normal. Left Ear: External ear normal. Nose: Nose normal. Mouth/Throat: Mouth: Mucous membranes are moist. Eyes: General: Right eye: No discharge. Left eye: No discharge. Cardiovascular: Rate and Rhythm: Normal rate and regular rhythm. Heart sounds: Normal heart sounds. No murmur heard. No friction rub. No gallop. Pulmonary: Effort: Pulmonary effort is normal. No respiratory distress. Breath sounds: Normal breath sounds. No stridor. No wheezing, rhonchi or rales. Abdominal: General: Abdomen is flat. There is no distension. Palpations: Abdomen is soft. There is no mass. Tenderness: There is no abdominal tenderness. There is no guarding or rebound. Musculoskeletal: General: Normal range of motion. Cervical back: Normal range of motion and neck supple. Right lower leg: No edema. Left lower leg: No edema. Skin: General: Skin is warm and dry. Capillary Refill: Capillary refill takes less than 2 seconds. Neurological: General: No focal deficit present. Mental Status: He is alert and oriented to person, place, and time. Psychiatric: Behavior: Behavior normal. Mini-Mental Status Exam: Domains Points Correct Oriented to: Month STATE, COUNTY, TOWN, and HOSPITAL 5 Registration (immediate recall) Apple, Table, Brooke # of Trials: 1 3 Serial 7s Use if 8th grade education or better 93, 86, 79, 72, 65 4 WORLD Backwards Use if <8th grade education D L R O W Not used Delayed 3 item recall Apple, Table, Brooke 2 Repetition Repeat after me: NO IFS, ANDS, OR BUTS 0 3 Step Command Take paper in right hand, fold it in half, & set on floor 3 Naming Watch Pen 2 Reading Read & Obey Present: Close your eyes 1 Write a sentence 1 Copy Design (overlapping pentagons) 0 MMSE Score: 21/30 Clock Drawing Test: Correct Elements (1 pt each): Numbers 1-12 only included, Numbers are drawn inside the clock [place], Numbers are equally spaced from each other, hour hand points to correct number, minute hand points to correct number, and there are only 2 clock hands Total Score 6/7 Time Instructions: Twothirty-five Scores < 5 out of 7 correlate with significantly more driving errors J [employer] Med 2005; 20:240-244 Labs and Imaging: Recent Results (from the past 24 hour(s)) Vitamin B12 Collection Time: 06/15/23 5:02 AM Result Value Ref Range VITAMIN B12 575 239 - 931 pg/mL Vitamin D Deficiency Screening (Vit D 25) Collection Time: 06/15/23 5:02 AM Result Value Ref Range VIT D 25-OH, TOTAL 27 (L) 30 - 100 ng/mL CBC auto differential Collection Time: 06/15/23 5:02 AM Result Value Ref Range Auto WBC 4.1 3.6 - 10.7 10*3/uL RBC 4.86 4.40 - 5.90 10*6/uL Hemoglobin 14.3 13.0 - 18.0 g/dL Hematocrit 41.6 40.0 - 52.0 % MCV 85.5 80.0 - 98.0 fL MCH 29.5 26.0 - 34.0 pg MCHC 34.4 32.0 - 36.0 % RDW 14.6 (H) 11.5 - 14.5 % Platelets 190 140 - 440 10*3/uL MPV 8.0 7.4 - 12.4 fL nRBC 0.1 0.0 - 2.0 /100 WBCs Neutrophils Relative 54.5 40.0 - 80.0 % Lymphocytes Relative 26.4 20.0 - 40.0 % Monocytes Relative 12.3 (H) 2.0 - 10.0 % Eosinophils Relative 5.8 1.0 - 6.0 % Basophils Relative 1.0 0.0 - 2.0 % Neutrophils Absolute 2.2 1.8 - 7.0 10*3/uL Lymphocytes Absolute 1.1 1.0 - 4.3 10*3/uL Monocytes Absolute 0.5 0.0 - 0.8 10*3/uL Eosinophils Absolute 0.2 0.0 - 0.5 10*3/uL Basophils Absolute 0.0 0.0 - 0.2 10*3/uL Comprehensive metabolic panel Collection Time: 06/15/23 5:02 AM Result Value Ref Range SODIUM 134 (L) 135 - 145 mmol/L POTASSIUM 4.1 3.5 - 5.1 mmol/L CHLORIDE 103 98 - 107 mmol/L CARBON DIOXIDE 25 22 - 30 mmol/L ANION GAP 6 3 - 13 mmol/L UREA NITROGEN 20 9 - 20 mg/dL CREATININE 1.00 0.66 - 1.25 mg/dL GLUCOSE 88 70 - 100 mg/dL CALCIUM 8.7 8.4 - 10.4 mg/dL AST (SGOT) 37 15 - 46 U/L ALT 21 0 - 49 U/L ALKALINE PHOSPHATASE 88 38 - 126 U/L ALBUMIN 3.8 3.5 - 5.0 g/dL BILIRUBIN, TOTAL 0.5 0.2 - 1.3 mg/dL TOTAL PROTEIN 7.9 6.3 - 8.2 g/dL eGFR 80.5 >60.0 mL/min/1.73m*2 Lab Results Component Value Date TSH 1.317 06/13/2023 No components found for: B12 Lab Results Component Value Date VITD25 27 (L) 06/15/2023 Reviewed: active problem list, medication list, allergies, family history, social history, health maintenance, notes from last encounter, lab results, imaging Follow-up: Follow up at [facility] in 4-6 weeks - post discharge Communication of Consult Recommendations: Assessment and recommendations communicated to primary service - via note. Bradley Millard MD PGY4 Geriatric fellow Associated attestation - Nedra White MD - 06/17/2023 8:39 AM EST ATTENDING ATTESTATION: ATTENDING ATTESTATION: I saw and independently examined Mr. Mueller on 06/15/2023. The case was discussed on rounds with the fellow, Dr. Millard. I agree with the history , examination, and medical decision making as outlined. See my annotations in italics. Please see fellow note for further recommendations. documented in this encounter [facility] 06-18-2023 Note Family Communication Number Called: [phone] Name of Designated Family Hammer Operator: Gabriela Mueller Relationship: sister Phone Call Outcome: I spoke with the individual listed above. Family Hammer Operator Updated on the Following: Spoke to patients sister about patients current medical status. Informed her that all of our work up for encephalopathy has been negative so far. Told her that we would like to ensure that he has a safe home going plan. Gabriela said that he absolutely cannot live with her because Cory's son lives with her and they do not get along. She states that they would kill each other if they are in the same room and that Cory does not claim him as his son. She did say that she spoke to his ex and that she will be visiting him in the hospital [facility]. She provided Ex Violeta Zheng phone number: . Gabriela said that she cannot think of a single friend or family member that he speaks to anymore. She also stated that he cannot return to his apartment because they kicked him out for smoking as he lives in a non smoking apartment complex. She is unsure when he was kicked out. [facility] 06-18-2023 Note Formatting of this n ote might be different from the original. MD entered room noting that patient is medically stable for discharge. Patient possibly homeless and ? Lacks capacity per MD. Notified SW to verify if patient can return to his apartment. MD to discuss with geriatrics an assessment for capacity to determine if patient will need medical decision maker /guardianship for placement or alternate plan ( if he has capacity) for discharge, ie homeless senior care, medicaid for ECF. TCC to continue to follow. [facility] 06-18-2023 Note Formatting of this n ote might be different from the original. MD entered room noting that patient is medically stable for discharge. Patient possibly homeless and ? Lacks capacity per MD. Notified SW to verify if patient can return to his apartment. MD to discuss with geriatrics an assessment for capacity to determine if patient will need medical decision maker /guardianship for placement or alternate plan ( if he has capacity) for discharge, ie homeless senior care, medicaid for ECF. TCC to continue to follow. [facility] 06-17-2023 Note Interventional Radio logy Brief Postprocedure Note Procedure: IR lumbar puncture Preprocedure Diagnosis: AMS with unknown cause Postprocedure Diagnosis: no change Staff: Staff Role Emily Irvin RN Radiology Nurse Abraham Deng MD Radiologist Henry Mogus, RT (R) Director Of Bands RT Nahid (R) Director Of Bands Description of procedure: fluoroscopically guided lumbar puncture was performed Estimated Blood Loss: Minimal Medications Medications (Filter: Administrations occurring from 1358 to 1358 on 06/17/23) As of 06/17/23 1358 None Specimens 12 mL of colorless CSF were obtained Findings: thecal sac accessed at the L3-L4 level Plan: routine postop care Complications: None Anesthesia: local See detailed result report with images in PACS. The patient tolerated the procedure well without incident or complication and is in stable condition. Abraham Deng MD Interventional Radiology Pager: [facility] 06-17-2023 Note Formatting of this n ote is different from the original. Interventional Radiology Brief Postprocedure Note Procedure: IR lumbar puncture Preprocedure Diagnosis: AMS with unknown cause Postprocedure Diagnosis: no change Staff: Staff Role Emily Irvin RN Radiology Nurse Abraham Deng MD Radiologist RT Asia (R) Director Of Bands RT Nahid (R) Director Of Bands Description of procedure: fluoroscopically guided lumbar puncture was performed Estimated Blood Loss: Minimal Medications Medications (Filter: Administrations occurring from 1358 to 1358 on 06/17/23) As of 06/17/23 1358 None Specimens 12 mL of colorless CSF were obtained Findings: thecal sac accessed at the L3-L4 level Plan: routine postop care Complications: None Anesthesia: local See detailed result report with images in PACS. The patient tolerated the procedure well without incident or complication and is in stable condition. Abraham Deng MD Interventional Radiology Pager: [facility] [email or web address] Phone: 06-17-2023 Note Formatting of this n ote is different from the original. Interventional Radiology Brief Postprocedure Note Procedure: IR lumbar puncture Preprocedure Diagnosis: AMS with unknown cause Postprocedure Diagnosis: no change Staff: Staff Role Emily Irvin RN Radiology Nurse Abraham Deng MD Radiologist RT Asia (R) Director Of Bands Ronni Bentley RT (R) Director Of Bands Description of procedure: fluoroscopically guided lumbar puncture was performed Estimated Blood Loss: Minimal Medications Medications (Filter: Administrations occurring from 1358 to 1358 on 06/17/23) As of 06/17/23 1358 None Specimens 12 mL of colorless CSF were obtained Findings: thecal sac accessed at the L3-L4 level Plan: routine postop care Complications: None Anesthesia: local See detailed result report with images in PACS. The patient tolerated the procedure well without incident or complication and is in stable condition. Abraham Deng MD Interventional Radiology Pager: [facility] [employer] Phone: 06-17-2023 Note Family Communication Number Called: [phone] Name of Designated Family Hammer Operator: Gabriela Keith Relationship: sister Phone Call Outcome: I spoke with the individual listed above. Family Hammer Operator Updated on the Following: Ms. Keith (from [place]) states she and her sister (who lives in [place]) are Corys only living relatives. They have not spoken with him in many years except a brief phone call a few months ago asking for money. He had apparently cut himself off from the family for unknown reasons. She denies a history of confusion in [facility]. States he used to drink alcohol daily but is unsure if he still drinks. She gave an address for him ([address] [place] [address] [address] [facility] in [place]). She does not believe he has any close friends or other acquaintances and at this time is unsure whether she would like to be the medical decision maker for him and does not believe her sister would participate as he was apparently not close to her at all. She would like to be given medical updates as she cares for him deeply and was emotional during the conversation. [facility] [email or web address] 06-17-2023 Nurse Note Patient arrived from , Dr. Hany Deng was in to speak with the patient regarding LP, consent was obtained. Patient was placed prone on exam table prepped and draped in sterile fashion. 12cc of clear CSF was collected for labs. Patient tolerated procedure well. Transferring to [facility]. . [facility] [employer] 06-17-2023 Note Formatting of this n ote might be different from the original. Chart reviewed. Patient with increased confusion and COLLIER. +Rx for possible meningitis, LP pending. Patient is green slipped. Geriatrics consulted for delirium. PT recommending home independently. Patient may need decision maker and placement if unable to care for self. TCC to continue to follow. [facility] [email or web address]@ 06-17-2023 Note Formatting of this n ote might be different from the original. Chart reviewed. Patient with increased confusion and COLLIER. +Rx for possible meningitis, LP pending. Patient is green slipped. Geriatrics consulted for delirium. PT recommending home independently. Patient may need decision maker and placement if unable to care for self. TCC to continue to follow. [facility] [email or web address]@ 06-17-2023 Note PHYSICAL THERAPY [facility] Initial Evaluation Name/MRN: Cory Mueller ([id number]) Evaluation Date: 06/17/2023 Date of : 1950 Admission Date: 06/13/2023 9:56 PM Age: 72 y.o. Room/Bed: [facility] A Discharge Recommendation: Home independently Equipment Needed: No Assessment IMPRESSION: Patient presents with mild balance impairment and is currently requiring supervision for ambulation. He reports independent mobility at home. Recommend home at discharge based on mobility assessment; however, patient cognition may be a limiting factor for safety at home. Diagnosis: delirium Prognosis: good Performance Deficits /Impairments: Decreased Functional Mobility and Decreased Balance Decision Making: Low Complexity Subjective Patient in bed. He is agreeable to PT. Pain: Patient denies pain when questioned but when asked if his headache is resolved he states he still has a headache. Past Medical History: History reviewed. No pertinent past medical history. Past Surgical History: History reviewed. No pertinent surgical history. Admission Diagnosis: Patient Active Problem List Diagnosis Date Noted Acute metabolic encephalopathy 06/15/2023 Cognitive impairment 06/15/2023 Debility 06/15/2023 History of alcohol abuse 06/15/2023 Delirium 06/14/2023 Medical Precautions: Droplet Proper PPE donned/doffed in accordance with facility standards. Fall Risk: Carmichael Fall Risk Score: 45 (High Risk) Precautions/Restrictions: N/A Family/Caregiver Present: none Overall Cognitive Status: Exceptions - Arousal/alertness: appropriate responses to stimuli - Following commands: follows all commands without difficulty - Memory: decreased recall of biographical information and decreased recall of recent events - Insights: decreased awareness of deficits - Initiation: requires cues for some - Sequencing: does not require cues Overall Orientation Status: Oriented to Place, Patient is able to state name but does not know birthdate, not oriented to date or situation Vision: not assessed this session Hearing: normal Social/Functional History Patient admitted from home. Lives With: Alone Type of Home: apartment Home Layout: Single Level Home Home Access: Level Entry Home Equipment: none Homemaking Responsibilities: Independent Receives Help From: None Active Commercial Credit Head: No Prior Level of Function ADL Assistance: Independent Ambulation Assistance: Independent Transfer Assistance: Independent Objective Lower Extremity Assessment AROM: WFL PROM: Not assessed this session Strength: WFL Bed Mobility: Supine to sit: Modified Independent Sit to supine: Modified Independent Transfers Sit to stand: Modified Independent Stand to sit: Modified Independent Ambulation Ambulation 1 Assistive device(s) used: none Assist level: Supervision Distance (ft): 65 (Limited distance due to patient in isolation room.) Quality of gait: mild instability through all phases Outcome Measures AM-PAC How much HELP from another person do you currently need Turning from your back to your side while in a flat bed without using bedrails?: None Moving from lying on your back to sitting on the side of a flat bed without using bedrails?: None Moving to and from a bed to a chair (including a wheelchair)?: None Standing up from a chair using your arms (wheelchair or bedside chair)?: None Walking in a hospital room?: A Little Stair climbing assessed?: No AM-PAC Inpatient Mobility Raw Score (No Stairs) : 19 JH-HLM -HLM Score: Walked 25 ft or more (i.e. walked outside of room) Plan Pt would benefit from skilled acute PT services to address Strengthening, Balance Training, Functional Mobility Training, Gait Training, and Safety Education and Training. Frequency: 2x/week for 2 weeks Barriers: None Safety/Education Safety Safety Devices in place: call light within reach, left in bed, gait belt, and no alarms engaged upon entry Restraints: No Education Education Given To: patient Education Provided: PT Role, Plan of Care, and Discharge Recommendations Education Method: Verbal Barriers to Learning: Cognition Education Outcome: Verbalized Understanding and Continued Education Needed Goals Patient Stated Goal: Patient is agreeable to PT but when asked about a goal for therapy he states, I don't know. Encounter Problems Encounter Problems (Active) Mobility Patient will ambulate 300 feet with independence and no assistive device in order to improve safety and independence with mobility. Start: 06/17/23 Expected End: 07/01/23 Therapy Time Individual Co-treatment Time In 0845 Time Out 0854 Minutes 9 PPE worn in accordance with [facility] guidelines.] Leticia Leon, PT Patient's Physical Therapy Plan of Care supervision is transferred to a [facility] Services Physical Therapist. Goals and/or treatment plan was established in collabo (more content not included)... [facility] 06-16-2023 Note [facility] [address] [place] [id number] ROUTINE EEG REPORT Patient Name: Cory Mueller : 1950 Date of Study: 06/16/2023 Duration Recorded: 25 minutes EEG#: [id number] [employer] PR[employer] OFFBEARER: Rosette Sánchez PROVIDER REQUESTING STUDY: Sierra Hay MD REASON FOR EXAM: Evaluate for seizures DIAGNOSIS TAG: Transient Neurologic Symptoms (TNS) HISTORY: Cory Mueller is a 72 y.o. male with no significant past medical history. The patient presented [facility] on 06/13/2023 and was admitted for acute delirium. Patient was at home watching TV and somehow was found antinuclear. He had no recollection patient of how he got there or why he was there. EMS was called and he was brought to the ED for further evaluation. Labs in the ED were completely unremarkable. CT head and chest x-ray showed no abnormalities. Vitals remained stable and physical exam was benign. Patient was admitted overnight for observation and potential neurologic workup. MEDICATIONS: Current Facility-Administered Medications Medication Dose Route Frequency Provider Last Rate Last Admin acetaminophen (Tylenol) tablet 650 mg 650 mg Oral q6h PRN Kenneth Solo DO 650 mg at 06/15/23 1416 acyclovir (Zovirax) 500 mg in sodium chloride 0.9 % 100 mL IVPB 10 mg/kg IntraVENous q8h Kenneth Solo DO folic acid (Folvite) tablet 1 mg 1 mg Oral Daily Bradley Millard MD 1 mg at 06/16/23 1058 melatonin tablet 5 mg 5 mg Oral Nightly Bradley Millard MD 5 mg at 06/15/23 2214 sodium chloride ([place]) 0.65 % nasal spray 1 spray 1 spray Each Nostril PRN Matty Bryson DO thiamine (Vitamin B1) 250 mg in sodium chloride 0.9 % 100 mL IVPB 250 mg IntraVENous q24h Bradley Millard MD Stopped at 06/15/23 2244 TECHNICAL ASPECTS: This routine scalp EEG study with video was carried out at [facility]. Scalp electrodes were positioned in person by an cytotechnologist/histotechnologist, following patient education, according to the 10-20 International system of electrode placement and maintained for integrity and quality of the recording. EEG data with video was recorded continuously and digitally stored. The cytotechnologist/histotechnologist reviewed all automated detections and manual events and prepared the data for archiving and provider review. Referential and bipolar montages were used for review. TECHNOLOGIST NOTES: No skull or scalp defects were observed. BACKGROUND ACTIVITY: Posterior background activity: A continuous organized and well-modulated 9.5-10.5 Hz, 10-60 uV rhythm was seen symmetrically over the posterior head regions bilaterally. Beta range: Fronto-centrally predominant beta range activity (15-25 Hz, 10-20 uV) was seen. Sleep: No sleep architecture was observed.. Normal Variants: No normal variants were identified. SLOWING: No abnormal slowing was seen. INTERICTAL EPILEPTIFORM ACTIVITY: No epileptiform activity was seen. ICTAL ACTIVITY: No ictal activity was seen. NON-EPILEPTIC EVENTS: None. ACTIVATION PROCEDURES: Photic stimulation was not contributory. Hyperventilation was not contributory. IMPRESSION AND ACTIONS TAKEN: This routine EEG with video is within normal limits for the awake and sleep states. No abnormal slowing nor lateralizing features are seen. No epileptiform activity nor seizures are observed. Francis Ferrer MD, PHD Epilepsy Attending [facility] 06-16-2023 Procedure note Associated Ord er(s): EEG Images from the original note were not included. [facility] [address] [place] [id number] ROUTINE EEG REPORT Patient Name: Cory Mueller : 1950 Date of Study: 06/16/2023 Duration Recorded: 25 minutes EEG#: [id number] H[employer] PR[employer] OFFBEARER: Rosette Sánchez PROVIDER REQUESTING STUDY: Sierra Hay MD REASON FOR EXAM: Evaluate for seizures DIAGNOSIS TAG: Transient Neurologic Symptoms (TNS) HISTORY: Cory Mueller is a 72 y.o. male with no significant past medical history. The patient presented [facility] on 06/13/2023 and was admitted for acute delirium. Patient was at home watching TV and somehow was found antinuclear. He had no recollection patient of how he got there or why he was there. EMS was called and he was brought to the ED for further evaluation. Labs in the ED were completely unremarkable. CT head and chest x-ray showed no abnormalities. Vitals remained stable and physical exam was benign. Patient was admitted overnight for observation and potential neurologic workup. MEDICATIONS: Current Facility-Administered Medications Medication Dose Route Frequency Provider Last Rate Last Admin acetaminophen (Tylenol) tablet 650 mg 650 mg Oral q6h PRN Kenneth Solo DO 650 mg at 06/15/23 1416 acyclovir (Zovirax) 500 mg in sodium chloride 0.9 % 100 mL IVPB 10 mg/kg IntraVENous q8h Kenneth Solo DO folic acid (Folvite) tablet 1 mg 1 mg Oral Daily Bradley Millard MD 1 mg at 06/16/23 1058 melatonin tablet 5 mg 5 mg Oral Nightly Bradley Millard MD 5 mg at 06/15/23 2214 sodium chloride ([place]) 0.65 % nasal spray 1 spray 1 spray Each Nostril PRN Matty Zhong Kabellar, DO thiamine (Vitamin B1) 250 mg in sodium chloride 0.9 % 100 mL IVPB 250 mg IntraVENous q24h Bradley Millard MD Stopped at 06/15/23 8458 TECHNICAL ASPECTS: This routine scalp EEG study with video was carried out at [facility]. Scalp electrodes were positioned in person by an cytotechnologist/histotechnologist, following patient education, according to the 10-20 International system of electrode placement and maintained for integrity and quality of the recording. EEG data with video was recorded continuously and digitally stored. The cytotechnologist/histotechnologist reviewed all automated detections and manual events and prepared the data for archiving and provider review. Referential and bipolar montages were used for review. TECHNOLOGIST NOTES: No skull or scalp defects were observed. BACKGROUND ACTIVITY: Posterior background activity: A continuous organized and well-modulated 9.5-10.5 Hz, 10-60 uV rhythm was seen symmetrically over the posterior head regions bilaterally. Beta range: Fronto-centrally predominant beta range activity (15-25 Hz, 10-20 uV) was seen. Sleep: No sleep architecture was observed.. Normal Variants: No normal variants were identified. SLOWING: No abnormal slowing was seen. INTERICTAL EPILEPTIFORM ACTIVITY: No epileptiform activity was seen. ICTAL ACTIVITY: No ictal activity was seen. NON-EPILEPTIC EVENTS: None. ACTIVATION PROCEDURES: Photic stimulation was not contributory. Hyperventilation was not contributory. IMPRESSION AND ACTIONS TAKEN: This routine EEG with video is within normal limits for the awake and sleep states. No abnormal slowing nor lateralizing features are seen. No epileptiform activity nor seizures are observed. Francis Ferrer MD, PHD Epilepsy Attending [facility] [email or web address] Work Phone: 06-16-2023 Procedure note Associated Ord er(s): EEG Images from the original note were not included. [facility] [address] [place] [id number] ROUTINE EEG REPORT Patient Name: Cory Mueller : 1950 Date of Study: 06/16/2023 Duration Recorded: 25 minutes EEG#: [id number] H[employer] PR[employer] OFFBEARER: Rosette Sánchez PROVIDER REQUESTING STUDY: Sierra Hay MD REASON FOR EXAM: Evaluate for seizures DIAGNOSIS TAG: Transient Neurologic Symptoms (TNS) HISTORY: Cory Mueller is a 72 y.o. male with no significant past medical history. The patient presented [facility] on 06/13/2023 and was admitted for acute delirium. Patient was at home watching TV and somehow was found antinuclear. He had no recollection patient of how he got there or why he was there. EMS was called and he was brought to the ED for further evaluation. Labs in the ED were completely unremarkable. CT head and chest x-ray showed no abnormalities. Vitals remained stable and physical exam was benign. Patient was admitted overnight for observation and potential neurologic workup. MEDICATIONS: Current Facility-Administered Medications Medication Dose Route Frequency Provider Last Rate Last Admin acetaminophen (Tylenol) tablet 650 mg 650 mg Oral q6h PRN Kenneth Solo DO 650 mg at 06/15/23 1416 acyclovir (Zovirax) 500 mg in sodium chloride 0.9 % 100 mL IVPB 10 mg/kg IntraVENous q8h Kenneth Solo DO folic acid (Folvite) tablet 1 mg 1 mg Oral Daily Bradley Millard MD 1 mg at 06/16/23 1058 melatonin tablet 5 mg 5 mg Oral Nightly Bradley Millard MD 5 mg at 06/15/23 2214 sodium chloride ([place]) 0.65 % nasal spray 1 spray 1 spray Each Nostril PRN Matty Bryson DO thiamine (Vitamin B1) 250 mg in sodium chloride 0.9 % 100 mL IVPB 250 mg IntraVENous q24h Bradley Millard MD Stopped at 06/15/23 2244 TECHNICAL ASPECTS: This routine scalp EEG study with video was carried out at [facility]. Scalp electrodes were positioned in person by an cytotechnologist/histotechnologist, following patient education, according to the 10-20 International system of electrode placement and maintained for integrity and quality of the recording. EEG data with video was recorded continuously and digitally stored. The cytotechnologist/histotechnologist reviewed all automated detections and manual events and prepared the data for archiving and provider review. Referential and bipolar montages were used for review. TECHNOLOGIST NOTES: No skull or scalp defects were observed. BACKGROUND ACTIVITY: Posterior background activity: A continuous organized and well-modulated 9.5-10.5 Hz, 10-60 uV rhythm was seen symmetrically over the posterior head regions bilaterally. Beta range: Fronto-centrally predominant beta range activity (15-25 Hz, 10-20 uV) was seen. Sleep: No sleep architecture was observed.. Normal Variants: No normal variants were identified. SLOWING: No abnormal slowing was seen. INTERICTAL EPILEPTIFORM ACTIVITY: No epileptiform activity was seen. ICTAL ACTIVITY: No ictal activity was seen. NON-EPILEPTIC EVENTS: None. ACTIVATION PROCEDURES: Photic stimulation was not contributory. Hyperventilation was not contributory. IMPRESSION AND ACTIONS TAKEN: This routine EEG with video is within normal limits for the awake and sleep states. No abnormal slowing nor lateralizing features are seen. No epileptiform activity nor seizures are observed. Francis Ferrer MD, PHD Epilepsy Attending documented in this encounter [facility] 06-16-2023 Note Med Team Progress No te Cory Mueller : 1950(72 y.o.) Date: June 16, 2023 Med Team: Rasta Attending: Dr. Alvarez Chief Complaint: Confusion and decreased memory Subjective: - No acute events overnight. - Currently, patient is resting comfortably in bed. States that he had 1 bowel movement this morning and denies any diarrhea, hematochezia, or melena. He denies any chest pain, SOB, fever, chills, nausea/vomiting, dysuria, and abdominal pain. He is A&O x 1. When asked if he knows why he is in the hospital he said he is unsure how he got here and why he is admitted to the hospital. He is unable to recall the year or where he is located. States that he typically smokes half pack a day and has not drank alcohol in quite a while. Informed patient that the phone number he gave us yesterday to contact his sister was not an active phone number. Patient states that he does not know any of his other family members numbers for us to contact. Updated patient on results of MRI brain. Patient had no questions at this time. Review of Systems Constitutional: Negative for chills and fever. HENT: Negative for congestion. Respiratory: Negative for shortness of breath and wheezing. Cardiovascular: Negative for chest pain, palpitations and leg swelling. Gastrointestinal: Negative for abdominal pain, constipation, diarrhea, nausea and vomiting. Genitourinary: Negative for dysuria, frequency and urgency. Neurological: Positive for headaches. Negative for dizziness, weakness and light-headedness. Psychiatric/Behavioral: Positive for confusion. Negative for agitation and sleep disturbance. Scheduled Meds:folic acid, 1 mg, Oral, Daily melatonin, 5 mg, Oral, Nightly thiamine (Vitamin B1) 250 mg in sodium chloride 0.9 % 100 mL IVPB, 250 mg, IntraVENous, q24h Continuous Infusions: PRN meds used in last 24hrs: Tylenol Objective: BP 117/70 (BP Location: Right arm, Patient Position: Sitting) Pulse 65 Temp 36.1 ?C (97 ?F) (Temporal) Resp 20 Ht 6' 0.01 (1.829 m) Wt 107 lb 5.8 oz (48.7 kg) SpO2 96% BMI 14.56 kg/m? Physical Exam Vitals reviewed. Constitutional: General: He is not in acute distress. Appearance: Normal appearance. HENT: Head: Normocephalic and atraumatic. Cardiovascular: Rate and Rhythm: Normal rate and regular rhythm. Pulses: Normal pulses. Heart sounds: Normal heart sounds. No murmur heard. Pulmonary: Effort: Pulmonary effort is normal. No respiratory distress. Breath sounds: Normal breath sounds. No wheezing. Abdominal: General: There is no distension. Palpations: Abdomen is soft. Tenderness: There is no abdominal tenderness. There is no guarding. Musculoskeletal: General: No tenderness. Right lower leg: No edema. Left lower leg: No edema. Skin: General: Skin is warm. Neurological: Mental Status: He is alert. He is disoriented. Comments: A&Ox1 Psychiatric: Mood and Affect: Mood normal. Behavior: Behavior normal. [facility] within last 24 hours Auto WBC Date Value Ref Range Status 06/16/2023 3.7 3.6 - 10.7 10*3/uL Final Hemoglobin Date Value Ref Range Status 06/16/2023 13.3 13.0 - 18.0 g/dL Final Hematocrit Date Value Ref Range Status 06/16/2023 38.9 (L) 40.0 - 52.0 % Final Platelets Date Value Ref Range Status 06/16/2023 179 140 - 440 10*3/uL Final MCV Date Value Ref Range Status 06/16/2023 84.9 80.0 - 98.0 fL Final SODIUM Date Value Ref Range Status 06/16/2023 135 135 - 145 mmol/L Final POTASSIUM Date Value Ref Range Status 06/16/2023 4.2 3.5 - 5.1 mmol/L Final CHLORIDE Date Value Ref Range Status 06/16/2023 107 98 - 107 mmol/L Final CARBON DIOXIDE Date Value Ref Range Status 06/16/2023 23 22 - 30 mmol/L Final UREA NITROGEN Date Value Ref Range Status 06/16/2023 20 9 - 20 mg/dL Final CREATININE Date Value Ref Range Status 06/16/2023 0.92 0.66 - 1.25 mg/dL Final GLUCOSE Date Value Ref Range Status 06/16/2023 92 70 - 100 mg/dL Final CALCIUM Date Value Ref Range Status 06/16/2023 8.5 8.4 - 10.4 mg/dL Final AST (SGOT) Date Value Ref Range Status 06/16/2023 29 15 - 46 U/L Final ALT Date Value Ref Range Status 06/16/2023 18 0 - 49 U/L Final TOTAL PROTEIN Date Value Ref Range Status 06/16/2023 7.9 6.3 - 8.2 g/dL Final BILIRUBIN, TOTAL Date Value Ref Range Status 06/16/2023 0.4 0.2 - 1.3 mg/dL Final ALKALINE PHOSPHATASE Date Value Ref Range Status 06/16/2023 74 38 - 126 U/L Final No results found for: CKTOTAL , CKMB , TROPONINI No results found for: PROCAL , CHOL , TRIG , HDL , TSH , VITD25 , HGBA1C , VANCOTROUGH Assessment and Plan: Delirium Cognitive impairment - A&Ox1 and more delirious this am - MMSE 20 on initial evaluation - Vitamin B12, TSH, and free T4 WNL - Vitamin D levels low at 27 - Urine drugs screen positive for THC. Ethyl glucuronide negative. - UA and urine culture show no abnormalities - RPR pending (more content not included)... [facility] 06-15-2023 Consult note Associated Order (s): IP CONSULT TO GERIATRICS [facility] Geriatric Medicine Inpatient Consult Service Admission Date: 06/13/2023 Admission Status: INPATIENT Chief Complaint: Chief Complaint Patient presents with Altered Mental Status Pt is brought into the ED by EMS. Per EMS the pt was found wandering near the [place] [address]. Pt states that he lives in [place]. Pt states that he remembers getting on the bus this morning. Pt states that he is not sure where he was going when he got on the bus. Pt states that he does not remember much from today. Reason for Appointment Geriatrics consulted for Episode of confusion and wondering to bob couch, unclear etiology. MMSE 20. Concerns for safety at home . Assessment/Plan Principal Problem: Delirium Active Problems: Acute metabolic encephalopathy Cognitive impairment Debility History of alcohol abuse Acute metabolic encephalopathy in the setting of cognitive impairment +/- wernicke's encephalopathy. - MMSE 20-21 - B12, TSH - both wnl - Ammonia - LFTs - wnl - MAT - ethyl glucuronide --Risk factors: advanced age, sensory impairments, acute illness, history of delirium, and baseline cognitive deficits --Encourage PO intake, time up in chair, family visits, supervised ambulation, and sleep hygiene --If agitated, assess for and consider treating for pain --QTc= No ECG done - will order ECG --No antipsychotic unless patient is danger to self/others/treatment --Start scheduled melatonin at HS --Monitor for constipation/urinary retention - last BM unknown - melatonin - will have the patient follow up on an OP basis. - RPR pending - MRI head already ordered - agree. - CIWA - thiamine - consider ADM consult - management per primary team. - patient to follow up with [facility] on an OP basis, once at baseline - he prefers to be seen at [facility]. Agree - would recommend to reach out to director of family service center [place] to corroborate patient's history. Agree. At this time, we have no collateral history or knowledge of his living environment. We need to be able to contact someone who can speak to his baseline. - multiple labs already ordered by primary team. Debility - Vitamin D - PT/OT Will follow with the patient. Subjective: HPI 72 y.o. year-old male presented from home for AMS. Conversation with patient: Patient states he was not able to think clearly and that is why he is here. Patient thinks he was in a store, not sure what the store was called. Patient is not sure how he ended up at the hospital. He thinks he took a bus to the hospital so that he can have money to get anything else . Patient is a poor historian. Patient states that his last drink was months ago. He denies doing any drugs. He does not take any medications at home. Patient states he used to drink a lot more - 15-20 years ago. He reports drinking 4 regular beers per day. Patient states that he has been having a tough time with his memory. He denies having any CP, SOB, n/v/d, fevers, chills, and night sweats. Last BM was today. No urgency, frequency, or dysuria. Patient states he wants [employer] to get elected and watches the news all day, but did not know when the election year occurred. Patient states he has been paying his rent through his bank, but does not remember which bank he uses. On chart review: Patient was brought from [facility] by EMS. Patient supposedly was at home watching TV and somehow found himself on the bus and ended up at [facility]. Concern for an amnestic episode. Pleasant and cooperative but vague when pressed for specific details. Thinks that he went to the store looking for help from someone because of his confusion. Fairly nonplussed about admission and does not seem to be anxious about leaving the hospital. Conversation with caregiver: Sister - Gabriela Mueller - [phone] - patient provided this phone number, which has been disconnected. Patient has not spoken to his sister in approximately 5-6 months. Patient denies having any friends in the area - states that he stays at home and watches TV all day. Advance Care Planning Healthcare Power ofAttorney: No Financial Power of Svp Research And Strategic Analysis: No Living Will:No Code Status: Full code No Known Allergies Current Facility-Administered Medications: acetaminophen (Tylenol) tablet 650 mg, 650 mg, Oral, q6h PRN, Kenneth Solo, , 650 mg at 06/15/23 1416 History reviewed. No pertinent past medical history. History reviewed. No pertinent surgical history. Social History Social History Tobacco Use Smoking status: Every Day Packs/day: .5 Types: Cigarettes Smokeless tobacco: Never Substance Use Topics Alcohol use: Not on file Social History Social History Narrative Not on file Patient Currently Lives: apartment - lives by himself. Level of FamilySupport: The patient lacks significant family support. - he has one sister - has not spoken to her in 4-5 months. He does not have any children or spouse. Community Resources: no Elder Abuse: no Education Level: High School graduate Family History No family history on file. No family status information on file. Dad had issues with alcohol abuse. Family history reviewed as above Review of Systems Constitutional: Negative for chills and fever. HENT: Negative for ear discharge, ear pain, rhinorrhea and sore throat. Eyes: Negative for pain and discharge. Respiratory: Negative for cough, chest tightness and shortness of breath. Cardiovascular: Negative for chest pain, palpitations and leg swelling. Gastrointestinal: Negative for abdominal pain, constipation, diarrhea, nausea and vomiting. Genitourinary: Negative for dysuria, frequency, hematuria and urgency. Musculoskeletal: Negative for arthralgias and gait problem. Skin: Negative for pallor and rash. Neurological: Negative for seizures, syncope, facial asymmetry and headaches. Psychiatric/Behavioral: Negative for agitation and confusion. The patient is not nervous/anxious. Depression Screening: PHQ-2 Over the past 2 weeks, how often have you been botheredby any of the following problems? 1) Little interest or pleasure in doing things: No 2)Felling down, depressed, or hopeless: No Functional Status (I: Independent, A: Assisted, D: Dependent) ADLs I A D Notes Bathing [x] [] [] Dressing [x] [] [] Toileting [x] [] [] Transfers [x] [] [] Feeding [x] [] [] Ambulation [x] [] [] Assistive devices: none IADLs I A D { Telephone [x] [] [] Transportation [] [] [x] Driving safety concerns: No - patient has not driven for the last year. He junked his car, and did not want to drive anymore 2/2 cost. Shopping [x] [] [] Meal prep [x] [] [] Housework [x] [] [] Medications [x] [] [] Finances [x] [] [] Objective: BP 138/87 (BP Location: Right arm, Patient Position: Lying) Pulse 66 Temp 36.6 C (97.8 F) (Temporal) Resp 16 Ht 6' 0.01 (1.829 m) Wt 107 lb 5.8 oz (48.7 kg) SpO2 97% BMI 14.56 kg/m No intake or output data in the 24 hours ending 06/15/23 1528 Wt Readings from Last 3 Encounters: 06/14/23 107 lb 5.8 oz (48.7 kg) Physical Exam Constitutional: Appearance: Normal appearance. HENT: Head: Normocephalic and atraumatic. Right Ear: External ear normal. Left Ear: External ear normal. Nose: Nose normal. Mouth/Throat: Mouth: Mucous membranes are moist. Eyes: General: Right eye: No discharge. Left eye: No discharge. Cardiovascular: Rate and Rhythm: Normal rate and regular rhythm. Heart sounds: Normal heart sounds. No murmur heard. No friction rub. No gallop. Pulmonary: Effort: Pulmonary effort is normal. No respiratory distress. Breath sounds: Normal breath sounds. No stridor. No wheezing, rhonchi or rales. Abdominal: General: Abdomen is flat. There is no distension. Palpations: Abdomen is soft. There is no mass. Tenderness: There is no abdominal tenderness. There is no guarding or rebound. Musculoskeletal: General: Normal range of motion. Cervical back: Normal range of motion and neck supple. Right lower leg: No edema. Left lower leg: No edema. Skin: General: Skin is warm and dry. Capillary Refill: Capillary refill takes less than 2 seconds. Neurological: General: No focal deficit present. Mental Status: He is alert and oriented to person, place, and time. Psychiatric: Behavior: Behavior normal. Mini-Mental Status Exam: Domains Points Correct Oriented to: Month STATE, COUNTY, TOWN, and HOSPITAL 5 Registration (immediate recall) Apple, Table, Brooke # of Trials: 1 3 Serial 7s Use if 8th grade education or better 93, 86, 79, 72, 65 4 WORLD Backwards Use if <8th grade education D L R O W Not used Delayed 3 item recall Apple, Table, Brooke 2 Repetition Repeat after me: NO IFS, ANDS, OR BUTS 0 3 Step Command Take paper in right hand, fold it in half, & set on floor 3 Naming Watch Pen 2 Reading Read & Obey Present: Close your eyes 1 Write a sentence 1 Copy Design (overlapping pentagons) 0 MMSE Score: 21/30 Clock Drawing Test: Correct Elements (1 pt each): Numbers 1-12 only included, Numbers are drawn inside the clock [place], Numbers are equally spaced from each other, hour hand points to correct number, minute hand points to correct number, and there are only 2 clock hands Total Score 6/7 Time Instructions: Twothirty-five Scores < 5 out of 7 correlate with significantly more driving errors J Gen Steel Loader Med 2005; 20:240-244 Labs and Imaging: Recent Results (from the past 24 hour(s)) Vitamin B12 Collection Time: 06/15/23 5:02 AM Result Value Ref Range VITAMIN B12 575 239 - 931 pg/mL Vitamin D Deficiency Screening (Vit D 25) Collection Time: 06/15/23 5:02 AM Result Value Ref Range VIT D 25-OH, TOTAL 27 (L) 30 - 100 ng/mL CBC auto differential Collection Time: 06/15/23 5:02 AM Result Value Ref Range Auto WBC 4.1 3.6 - 10.7 10*3/uL RBC 4.86 4.40 - 5.90 10*6/uL Hemoglobin 14.3 13.0 - 18.0 g/dL Hematocrit 41.6 40.0 - 52.0 % MCV 85.5 80.0 - 98.0 fL MCH 29.5 26.0 - 34.0 pg MCHC 34.4 32.0 - 36.0 % RDW 14.6 (H) 11.5 - 14.5 % Platelets 190 140 - 440 10*3/uL MPV 8.0 7.4 - 12.4 fL nRBC 0.1 0.0 - 2.0 /100 WBCs Neutrophils Relative 54.5 40.0 - 80.0 % Lymphocytes Relative 26.4 20.0 - 40.0 % Monocytes Relative 12.3 (H) 2.0 - 10.0 % Eosinophils Relative 5.8 1.0 - 6.0 % Basophils Relative 1.0 0.0 - 2.0 % Neutrophils Absolute 2.2 1.8 - 7.0 10*3/uL Lymphocytes Absolute 1.1 1.0 - 4.3 10*3/uL Monocytes Absolute 0.5 0.0 - 0.8 10*3/uL Eosinophils Absolute 0.2 0.0 - 0.5 10*3/uL Basophils Absolute 0.0 0.0 - 0.2 10*3/uL Comprehensive metabolic panel Collection Time: 06/15/23 5:02 AM Result Value Ref Range SODIUM 134 (L) 135 - 145 mmol/L POTASSIUM 4.1 3.5 - 5.1 mmol/L CHLORIDE 103 98 - 107 mmol/L CARBON DIOXIDE 25 22 - 30 mmol/L ANION GAP 6 3 - 13 mmol/L UREA NITROGEN 20 9 - 20 mg/dL CREATININE 1.00 0.66 - 1.25 mg/dL GLUCOSE 88 70 - 100 mg/dL CALCIUM 8.7 8.4 - 10.4 mg/dL AST (SGOT) 37 15 - 46 U/L ALT 21 0 - 49 U/L ALKALINE PHOSPHATASE 88 38 - 126 U/L ALBUMIN 3.8 3.5 - 5.0 g/dL BILIRUBIN, TOTAL 0.5 0.2 - 1.3 mg/dL TOTAL PROTEIN 7.9 6.3 - 8.2 g/dL eGFR 80.5 >60.0 mL/min/1.73m*2 Lab Results Component Value Date TSH 1.317 06/13/2023 No components found for: B12 Lab Results Component Value Date VITD25 27 (L) 06/15/2023 Reviewed: active problem list, medication list, allergies, family history, social history, health maintenance, notes from last encounter, lab results, imaging Follow-up: Follow up at [facility] in 4-6 weeks - post discharge Communication of Consult Recommendations: Assessment and recommendations communicated to primary service - via note. Bradley Millard MD PGY4 Geriatric fellow Associated attestation - Nedra White MD - 06/17/2023 8:39 AM EST ATTENDING ATTESTATION: ATTENDING ATTESTATION: I saw and independently examined Mr. Mueller on 06/15/2023. The case was discussed on rounds with the fellow, Dr. Millard. I agree with the history , examination, and medical decision making as outlined. See my annotations in italics. Please see fellow note for further recommendations. [facility] 06-15-2023 Note Med Team Progress No te Cory Mueller : 1950(72 y.o.) Date: June 15, 2023 Med Team: Rasta Attending: Dr. Alvarez Chief Complaint: Confusion and decreased memory Subjective: - No acute events overnight. - Currently, patient is resting in bed. States that he has not had a BM since he has been admitted here. States he is completing his meals and drinking fluids. He has no acute complaints at this time. Spoke to patient about plan for geriatrics evaluation likely today. Patient states he has one sister living in [place] and another in [place]. Patient is okay with medical team contacting sister in [place] for further information. He is A&Ox2. Patient seen and examined on teaching rounds with Dr. Grover. I agree with the above. No complaints from patient today. Review of Systems Constitutional: Negative for chills and fever. Respiratory: Negative for shortness of breath and wheezing. Cardiovascular: Negative for chest pain, palpitations and leg swelling. Gastrointestinal: Negative for abdominal distention, abdominal pain, constipation, diarrhea, nausea and vomiting. Genitourinary: Negative for dysuria, hematuria and urgency. Neurological: Negative for dizziness, numbness and headaches. Psychiatric/Behavioral: Negative for agitation. Scheduled Meds: Continuous Infusions: PRN meds used in last 24hrs: None Objective: BP 138/87 (BP Location: Right arm, Patient Position: Lying) Pulse 66 Temp 36.6 ?C (97.8 ?F) (Temporal) Resp 16 Ht 6' 0.01 (1.829 m) Wt 107 lb 5.8 oz (48.7 kg) SpO2 97% BMI 14.56 kg/m? Physical Exam Vitals reviewed. Constitutional: General: He is not in acute distress. Appearance: Normal appearance. HENT: Head: Normocephalic and atraumatic. Cardiovascular: Rate and Rhythm: Normal rate and regular rhythm. Pulses: Normal pulses. Heart sounds: Normal heart sounds. Pulmonary: Effort: Pulmonary effort is normal. No respiratory distress. Breath sounds: Normal breath sounds. No wheezing. Abdominal: General: There is no distension. Palpations: Abdomen is soft. Tenderness: There is no abdominal tenderness. There is no guarding. Musculoskeletal: Right lower leg: No edema. Left lower leg: No edema. Skin: General: Skin is warm. Neurological: General: No focal deficit present. Mental Status: He is alert. Psychiatric: Mood and Affect: Mood normal. [facility] within last 24 hours Auto WBC Date Value Ref Range Status 06/15/2023 4.1 3.6 - 10.7 10*3/uL Final Hemoglobin Date Value Ref Range Status 06/15/2023 14.3 13.0 - 18.0 g/dL Final Hematocrit Date Value Ref Range Status 06/15/2023 41.6 40.0 - 52.0 % Final Platelets Date Value Ref Range Status 06/15/2023 190 140 - 440 10*3/uL Final MCV Date Value Ref Range Status 06/15/2023 85.5 80.0 - 98.0 fL Final SODIUM Date Value Ref Range Status 06/15/2023 134 (L) 135 - 145 mmol/L Final POTASSIUM Date Value Ref Range Status 06/15/2023 4.1 3.5 - 5.1 mmol/L Final CHLORIDE Date Value Ref Range Status 06/15/2023 103 98 - 107 mmol/L Final CARBON DIOXIDE Date Value Ref Range Status 06/15/2023 25 22 - 30 mmol/L Final UREA NITROGEN Date Value Ref Range Status 06/15/2023 20 9 - 20 mg/dL Final CREATININE Date Value Ref Range Status 06/15/2023 1.00 0.66 - 1.25 mg/dL Final GLUCOSE Date Value Ref Range Status 06/15/2023 88 70 - 100 mg/dL Final CALCIUM Date Value Ref Range Status 06/15/2023 8.7 8.4 - 10.4 mg/dL Final AST (SGOT) Date Value Ref Range Status 06/15/2023 37 15 - 46 U/L Final ALT Date Value Ref Range Status 06/15/2023 21 0 - 49 U/L Final TOTAL PROTEIN Date Value Ref Range Status 06/15/2023 7.9 6.3 - 8.2 g/dL Final BILIRUBIN, TOTAL Date Value Ref Range Status 06/15/2023 0.5 0.2 - 1.3 mg/dL Final ALKALINE PHOSPHATASE Date Value Ref Range Status 06/15/2023 88 38 - 126 U/L Final No results found for: CKTOTAL , CKMB , TROPONINI No results found for: PROCAL , CHOL , TRIG , HDL , TSH , VITD25 , HGBA1C , VANCOTROUGH Assessment and Plan: Acute episode of delirium Amnestic event - Vitamin B12, TSH, and free T4 WNL - Geriatrics consulted for recs - MMSE of 20 - Ordered MRI brain for further evaluation - Delirium and fall precautions in place - UA, MAT, ethyl glucuronide pending at this time - RPR and vitamin D also pending - Ordered PT/OT Agree. Await MRI and Geriatrics consult. He gave us permission to jose sister--team will try to get more information. - Goals of Care: FULL CODE - DVT Prophylaxis: SCD's or Sequential Compression Device - GI Prophylaxis: Not Indicated - Diet: General Disposition: Remain on GMF for further medical management. I have discussed the care of Cory Mueller with the medical student and/or resident. I have personally taken a history, examined the patient, and performed the associated (more content not included)... [facility] 06-14-2023 Note Formatting of this n ote might be different from the original. Care Managment Initial Assessment Date: 06/14/2023 Patient Name: Cory Mueller : 1950 Patient Information Source of Information: Patient Cognition/Language: WFL - Within Functional Limits, Other (Comment) (? mild confusion new or chronic) Permission given to speak with patient door to door sales representative/caregiver as indicated: (no EC noted. Patient did state that he has a sister Gabriela in [place] and another sister in [place]) Confirmation of Payer with patient/family: Yes Payer Name: [employer] Medicare/[facility]- medicaid only : No Confirmation of Primary Care Physician: No PCP Seen in last 2 years?: (n/a) Primary Caregiver: Self If assistance needed, confirmed caregiver ready, willing and able to care for patient at discharge: No Confirmed with: Living Arrangements Current Residence: Apartment Number of Floors 1 Number of Entry Steps: (elevator) Bed/Bath Levels: Both first floor Lives with: Alone Support Systems: None Activities of Daily Living Ambulation: Independent Bathing/Dressing: Independent Elimination/Continence/Toileting: Independent Feeding: Independent Who Assists with Activities of Daily Living: Instrumental Activities of Daily Living Prescription Coverage: Yes (patient states he does not take any medications) Pharmacy Used: Medication Management: (n/a) Transportation/Shopping: Independent Transportation Mode: Public transportation (patient states he primarily walks) Needs Assistance with Transportation at Discharge: Yes Meal Preparation: Independent Laundry/Cleaning: Independent Finances/Bill Paying: Independent Communication: Independent Types of Care Services/Equipment Utilized Patient's Goal/Discharge Plan Patient expects to be discharged to: home Discharge Planning Actions: Continue to follow Patient's Choice Rights and [employer] and Collaborative Relationships Disclosed as Indicated for Post-Acute Care: NA Interdisciplinary Team Engagement: Geriatric Assessment Social Work Referral for: Additional Information: Introduced self and role to patient via bedside. Patient admitted for confusion, wandering in the community. Geriatrics consulted. MRI pending. Anticipate discharge in 1-2 days pending medical stability. Patient will need assistance with transport home. Stefanie Lipscomb RN [facility] [employer]@ 06-14-2023 Note Formatting of this n ote might be different from the original. Care Managment Initial Assessment Date: 06/14/2023 Patient Name: Cory Mueller : 1950 Patient Information Source of Information: Patient Cognition/Language: WFL - Within Functional Limits, Other (Comment) (? mild confusion new or chronic) Permission given to speak with patient door to door sales representative/caregiver as indicated: (no EC noted. Patient did state that he has a sister Gabriela in [place] and another sister in [place]) Confirmation of Payer with patient/family: Yes Payer Name: [employer] Medicare/[facility]- medicaid only : No Confirmation of Primary Care Physician: No PCP Seen in last 2 years?: (n/a) Primary Caregiver: Self If assistance needed, confirmed caregiver ready, willing and able to care for patient at discharge: No Confirmed with: Living Arrangements Current Residence: Apartment Number of Floors 1 Number of Entry Steps: (elevator) Bed/Bath Levels: Both first floor Lives with: Alone Support Systems: None Activities of Daily Living Ambulation: Independent Bathing/Dressing: Independent Elimination/Continence/Toileting: Independent Feeding: Independent Who Assists with Activities of Daily Living: Instrumental Activities of Daily Living Prescription Coverage: Yes (patient states he does not take any medications) Pharmacy Used: Medication Management: (n/a) Transportation/Shopping: Independent Transportation Mode: Public transportation (patient states he primarily walks) Needs Assistance with Transportation at Discharge: Yes Meal Preparation: Independent Laundry/Cleaning: Independent Finances/Bill Paying: Independent Communication: Independent Types of Care Services/Equipment Utilized Patient's Goal/Discharge Plan Patient expects to be discharged to: home Discharge Planning Actions: Continue to follow Patient's Choice Rights and [employer] and Collaborative Relationships Disclosed as Indicated for Post-Acute Care: NA Interdisciplinary Team Engagement: Geriatric Assessment Social Work Referral for: Additional Information: Introduced self and role to patient via bedside. Patient admitted for confusion, wandering in the community. Geriatrics consulted. MRI pending. Anticipate discharge in 1-2 days pending medical stability. Patient will need assistance with transport home. Stefanie Lipscomb RN [employer] 06-14-2023 Nurse Note Pt arrives to room 629 he is currently AOx4, denies pain. He states the grocery store called the ambulance because he was unaware how he need up there. No open areas on his skin, same is pink warm and dry. Addendum: During assessment, pt does ask the same question a number of times and does not recall doing so. [employer] 06-14-2023 Note Attestation signed by Sierra Hay MD at 06/14/2023 6:00 PM I have discussed the care of Cory Mueller with the medical student and/or resident. I have personally taken a history, examined the patient, and performed the associated medical decision making activities. I have reviewed & verified the attested documentation. Unless otherwise noted below, this documentation reflects the history, physical exam, and medical decision making that I performed myself. Please see note for my personal highlights or additions. Patient seen and examined personally (Date of Service: 06/14/23) Pt with no significant PMH brought to ER when found at [facility] not knowing why he was there. He had no complaints at all in ER evaluation, denies any to me today. He does not really remember much of what happened. He takes no medications. No PCP or doctor for many years. He denies any drug use except remote. He does endorse a significant daily alcohol history for many years, quit about 9 months ago. He has noted being forgetful. He lives alone, one sister in [place], but they do not really talk. No children. Is retired. Does all IDLs and ADLs. Has a history of anxiety, denies anxiety or depressed mood now. Denies any psychotic symptoms. ER labs and work up unremarkable MMSE scored 20/30 Plan is to get MRI Consult Geriatrics- likely has some cognitive decline and dementia. Could be due to chronic alcohol use. Check B12, Vitamin D, RPR 7AM-5PM: contact resident on [facility] Med A team (found by hoovering over attending's name on left side of patient's chart) 5PM-7AM: contact AI2 (Med Team A or B) or AI3 (Med Team C or D) res I personally spent a total of 60 minutes on date of service preparing to see the patient, performing a medically appropriate examination and evaluation , counseling patient on plan of care, ordering tests documented above, documenting clinical information in the electronic health record, and communicating results to the patient. Internal Medicine: Med Team Initial History and Physical Cory Mueller : 1950(72 y.o.) Date: June 14, 2023 TEAM: R[place] Attending: Dr. Hay Subjective: Chief Complaint: Confusion and decreased memory Altered Mental Status Presenting symptoms: no confusion Associated symptoms: no abdominal pain, no agitation, no fever, no hallucinations, no headaches, no light-headedness, no nausea, no palpitations, no seizures and no vomiting Cory Mueller is a 72 y.o. male with PMH of tobacco use that presented to [facility] on 06/13/2023 from [facility] by EMS. Patient supposedly was at home watching TV and somehow found himself on the bus and ended up at [facility]. He cannot why he got on the bus and what he was doing at [facility]. He was A&Ox2 at this time. EMS brought patient in for further evaluation. Labs in the ED are unremarkable and CT head and CXR show no abnormalities. Patient states he lives alone at home and is able to perform all ADLs. He does not take any medications and has not seen a PCP in years. He denies any acute complaints and is A&Ox4. Review of Systems Constitutional: Negative for chills and fever. HENT: Negative for congestion. Respiratory: Negative for cough, shortness of breath and wheezing. Cardiovascular: Negative for chest pain and palpitations. Gastrointestinal: Negative for abdominal distention, abdominal pain, constipation, diarrhea, nausea and vomiting. Genitourinary: Negative for dysuria, frequency, hematuria and urgency. Neurological: Negative for dizziness, seizures, syncope, light-headedness and headaches. Psychiatric/Behavioral: Negative for agitation, confusion and hallucinations. History reviewed. No pertinent past medical history. History reviewed. No pertinent surgical history. No family history on file. Social History Tobacco Use Smoking Status Every Day Packs/day: .5 Types: Cigarettes Smokeless Tobacco Never Social History Substance and Sexual Activity Alcohol Use None Social History Substance and Sexual Activity Drug Use Not on file No Known Allergies Prior to Admission medications Not on File Objective: Vitals: 06/13/23 2211 06/13/23 2219 06/13/23 2309 06/14/23 0154 BP: 136/88 (!) 163/98 (!) 148/92 BP Location: Left arm Right arm Left arm Patient Position: Sitting Sitting Sitting Pulse: 76 70 80 Resp: 15 15 20 Temp: 36.6 ?C (97.8 ?F) TempSrc: Oral SpO2: 99% 98% 100% 98% Weight: 152 lb (68.9 kg) Height: 6' (1.829 m) Physical Exam Vitals reviewed. Constitutional: General: He is not in acute distress. Appearance: Normal appearance. He is not ill-appearing. HENT: Head: Normocephalic and atraumatic. Cardiovascular: Rate an (more content not included)... [facility] 06-14-2023 History and physical note Internal Medicine: Med Team Initial History and Physical Cory Muellre : 1950(72 y.o.) Date: June 14, 2023 TEAM: A Attending: Dr. Hay Subjective: Chief Complaint: Confusion and decreased memory Altered Mental Status Presenting symptoms: no confusion Associated symptoms: no abdominal pain, no agitation, no fever, no hallucinations, no headaches, no light-headedness, no nausea, no palpitations, no seizures and no vomiting Cory Mueller is a 72 y.o. male with PMH of tobacco use that presented to [facility] on 06/13/2023 from [facility] by EMS. Patient supposedly was at home watching TV and somehow found himself on the bus and ended up at [facility]. He cannot why he got on the bus and what he was doing at [facility]. He was A&Ox2 at this time. EMS brought patient in for further evaluation. Labs in the ED are unremarkable and CT head and CXR show no abnormalities. Patient states he lives alone at home and is able to perform all ADLs. He does not take any medications and has not seen a PCP in years. He denies any acute complaints and is A&Ox4. Review of Systems Constitutional: Negative for chills and fever. HENT: Negative for congestion. Respiratory: Negative for cough, shortness of breath and wheezing. Cardiovascular: Negative for chest pain and palpitations. Gastrointestinal: Negative for abdominal distention, abdominal pain, constipation, diarrhea, nausea and vomiting. Genitourinary: Negative for dysuria, frequency, hematuria and urgency. Neurological: Negative for dizziness, seizures, syncope, light-headedness and headaches. Psychiatric/Behavioral: Negative for agitation, confusion and hallucinations. History reviewed. No pertinent past medical history. History reviewed. No pertinent surgical history. No family history on file. Social History Tobacco Use Smoking Status Every Day Packs/day: .5 Types: Cigarettes Smokeless Tobacco Never Social History Substance and Sexual Activity Alcohol Use None Social History Substance and Sexual Activity Drug Use Not on file No Known Allergies Prior to Admission medications Not on File Objective: Vitals: 06/13/23 2211 06/13/23 2219 06/13/23 2309 06/14/23 0154 BP: 136/88 (!) 163/98 (!) 148/92 BP Location: Left arm Right arm Left arm Patient Position: Sitting Sitting Sitting Pulse: 76 70 80 Resp: 15 15 20 Temp: 36.6 C (97.8 F) TempSrc: Oral SpO2: 99% 98% 100% 98% Weight: 152 lb (68.9 kg) Height: 6' (1.829 m) Physical Exam Vitals reviewed. Constitutional: General: He is not in acute distress. Appearance: Normal appearance. He is not ill-appearing. HENT: Head: Normocephalic and atraumatic. Cardiovascular: Rate and Rhythm: Normal rate and regular rhythm. Pulses: Normal pulses. Heart sounds: Normal heart sounds. No murmur heard. Pulmonary: Effort: Pulmonary effort is normal. No respiratory distress. Breath sounds: Normal breath sounds. No wheezing. Abdominal: General: There is no distension. Palpations: Abdomen is soft. Tenderness: There is no abdominal tenderness. There is no guarding. Musculoskeletal: Right lower leg: No edema. Left lower leg: No edema. Skin: General: Skin is dry. Neurological: General: No focal deficit present. Mental Status: He is alert and oriented to person, place, and time. Psychiatric: Mood and Affect: Mood normal. Behavior: Behavior normal. [facility] Labs within last 24 hours Auto WBC Date Value Ref Range Status 06/13/2023 5.7 3.6 - 10.7 10*3/uL Final Hgb, blood gas Date Value Ref Range Status 06/13/2023 15.3 Screen Only g/dl Final Hemoglobin Date Value Ref Range Status 06/13/2023 14.6 13.0 - 18.0 g/dL Final Hematocrit Date Value Ref Range Status 06/13/2023 41.9 40.0 - 52.0 % Final Platelets Date Value Ref Range Status 06/13/2023 198 140 - 440 10*3/uL Final MCV Date Value Ref Range Status 06/13/2023 83.5 80.0 - 98.0 fL Final SODIUM Date Value Ref Range Status 06/13/2023 135 135 - 145 mmol/L Final POTASSIUM Date Value Ref Range Status 06/13/2023 4.3 3.5 - 5.1 mmol/L Final CHLORIDE Date Value Ref Range Status 06/13/2023 99 98 - 107 mmol/L Final CARBON DIOXIDE Date Value Ref Range Status 06/13/2023 27 22 - 30 mmol/L Final UREA NITROGEN Date Value Ref Range Status 06/13/2023 21 (H) 9 - 20 mg/dL Final CREATININE Date Value Ref Range Status 06/13/2023 1.25 0.66 - 1.25 mg/dL Final GLUCOSE Date Value Ref Range Status 06/13/2023 90 70 - 100 mg/dL Final CALCIUM Date Value Ref Range Status 06/13/2023 9.1 8.4 - 10.4 mg/dL Final AST (SGOT) Date Value Ref Range Status 06/13/2023 37 15 - 46 U/L Final ALT Date Value Ref Range Status 06/13/2023 27 0 - 49 U/L Final TOTAL PROTEIN Date Value Ref Range Status 06/13/2023 8.4 (H) 6.3 - 8.2 g/dL Final BILIRUBIN, TOTAL Date Value Ref Range Status 06/13/2023 0.8 0.2 - 1.3 mg/dL Final ALKALINE PHOSPHATASE Date Value Ref Range Status 06/13/2023 89 38 - 126 U/L Final INR Date Value Ref Range Status 06/13/2023 1.0 0.9 - 1.1 Final Comment: Recommended Anticoagulant Therapy: SEE BELOW ----- INR of 2.0 - 3.0 : - Prophylaxis of Venous Thrombosis (high-risk surgery) - Treatment of Venous Thrombosis - Treatment of Pulmonary Embolism (Includes tissue heart valves, Acute Myocardial Infarction to prevent systemic embolism, Valvular Heart Disease, and Atrial Fibrillation) ----- INR of 2.5 - 3.5 : - Mechanical Prosthetic Valves (high risk) - If oral anticoagulant therapy is used to prevent Myocardial Infarction TROPONIN I Date Value Ref Range Status 06/13/2023 0.019 <0.034 ng/mL Final THYROID STIMULATING HORMONE Date Value Ref Range Status 06/13/2023 1.317 0.465 - 4.680 uIU/mL Final Assessment and Plan: Active Problems: There are no active Hospital Problems. Acute episode of delirium Amnestic event - Admit to [facility] - Spoke to gasoline locomotive crane operator attending with following recs: - Can consider neurology consult for further imaging with MRI brain - Can also consider geriatric consult - Delirium and fall precautions ordered - UA and MAT pending at this time - Goals of Care: FULL CODE - DVT Prophylaxis: SCD's or Sequential Compression Device - GI Prophylaxis: Not Indicated - Diet: General - BMI Classification: Body mass index is 20.61 kg/m . Normal (BMI 18.5-24.9) - Disposition: Admit to [facility]. - Given the signs and symptoms associated with his primary diagnosis in the setting of his comorbid conditions, he is expected to require <48 hrs of hospital care (i.e. observation level care). Associated attestation - Sierra Hay MD - 06/14/2023 6:00 PM EST I have discussed the care of Cory Mueller with the medical student and/or resident. I have personally taken a history, examined the patient, and performed the associated medical decision making activities. I have reviewed & verified the attested documentation. Unless otherwise noted below, this documentation reflects the history, physical exam, and medical decision making that I performed myself. Please see note for my personal highlights or additions. Patient seen and examined personally (Date of Service: 06/14/23) Pt with no significant PMH brought to ER when found at [facility] not knowing why he was there. He had no complaints at all in ER evaluation, denies any to me today. He does not really remember much of what happened. He takes no medications. No PCP or doctor for many years. He denies any drug use except remote. He does endorse a significant daily alcohol history for many years, quit about 9 months ago. He has noted being forgetful. He lives alone, one sister in [place], but they do not really talk. No children. Is retired. Does all IDLs and ADLs. Has a history of anxiety, denies anxiety or depressed mood now. Denies any psychotic symptoms. ER labs and work up unremarkable MMSE scored 20/30 Plan is to get MRI Consult Geriatrics- likely has some cognitive decline and dementia. Could be due to chronic alcohol use. Check B12, Vitamin D, RPR 7AM-5PM: contact resident on [facility] Med A team (found by hoovering over attending's name on left side of patient's chart) 5PM-7AM: contact AI2 (Med Team A or B) or AI3 (Med Team C or D) res I personally spent a total of 60 minutes on date of service preparing to see the patient, performing a medically appropriate examination and evaluation , counseling patient on plan of care, ordering tests documented above, documenting clinical information in the electronic health record, and communicating results to the patient. [facility] 06-14-2023 History and physical note Internal Medicine: Med Team Initial History and Physical Cory Mueller : 1950(72 y.o.) Date: June 14, 2023 TEAM: A Attending: Dr. Hay Subjective: Chief Complaint: Confusion and decreased memory Altered Mental Status Presenting symptoms: no confusion Associated symptoms: no abdominal pain, no agitation, no fever, no hallucinations, no headaches, no light-headedness, no nausea, no palpitations, no seizures and no vomiting Cory Mueller is a 72 y.o. male with PMH of tobacco use that presented to [facility] on 06/13/2023 from [facility] by EMS. Patient supposedly was at home watching TV and somehow found himself on the bus and ended up at [facility]. He cannot why he got on the bus and what he was doing at [facility]. He was A&Ox2 at this time. EMS brought patient in for further evaluation. Labs in the ED are unremarkable and CT head and CXR show no abnormalities. Patient states he lives alone at home and is able to perform all ADLs. He does not take any medications and has not seen a PCP in years. He denies any acute complaints and is A&Ox4. Review of Systems Constitutional: Negative for chills and fever. HENT: Negative for congestion. Respiratory: Negative for cough, shortness of breath and wheezing. Cardiovascular: Negative for chest pain and palpitations. Gastrointestinal: Negative for abdominal distention, abdominal pain, constipation, diarrhea, nausea and vomiting. Genitourinary: Negative for dysuria, frequency, hematuria and urgency. Neurological: Negative for dizziness, seizures, syncope, light-headedness and headaches. Psychiatric/Behavioral: Negative for agitation, confusion and hallucinations. History reviewed. No pertinent past medical history. History reviewed. No pertinent surgical history. No family history on file. Social History Tobacco Use Smoking Status Every Day Packs/day: .5 Types: Cigarettes Smokeless Tobacco Never Social History Substance and Sexual Activity Alcohol Use None Social History Substance and Sexual Activity Drug Use Not on file No Known Allergies Prior to Admission medications Not on File Objective: Vitals: 06/13/23 2211 06/13/23 2219 06/13/23 2309 06/14/23 0154 BP: 136/88 (!) 163/98 (!) 148/92 BP Location: Left arm Right arm Left arm Patient Position: Sitting Sitting Sitting Pulse: 76 70 80 Resp: 15 15 20 Temp: 36.6 C (97.8 F) TempSrc: Oral SpO2: 99% 98% 100% 98% Weight: 152 lb (68.9 kg) Height: 6' (1.829 m) Physical Exam Vitals reviewed. Constitutional: General: He is not in acute distress. Appearance: Normal appearance. He is not ill-appearing. HENT: Head: Normocephalic and atraumatic. Cardiovascular: Rate and Rhythm: Normal rate and regular rhythm. Pulses: Normal pulses. Heart sounds: Normal heart sounds. No murmur heard. Pulmonary: Effort: Pulmonary effort is normal. No respiratory distress. Breath sounds: Normal breath sounds. No wheezing. Abdominal: General: There is no distension. Palpations: Abdomen is soft. Tenderness: There is no abdominal tenderness. There is no guarding. Musculoskeletal: Right lower leg: No edema. Left lower leg: No edema. Skin: General: Skin is dry. Neurological: General: No focal deficit present. Mental Status: He is alert and oriented to person, place, and time. Psychiatric: Mood and Affect: Mood normal. Behavior: Behavior normal. [facility] Labs within last 24 hours Auto WBC Date Value Ref Range Status 06/13/2023 5.7 3.6 - 10.7 10*3/uL Final Hgb, blood gas Date Value Ref Range Status 06/13/2023 15.3 Screen Only g/dl Final Hemoglobin Date Value Ref Range Status 06/13/2023 14.6 13.0 - 18.0 g/dL Final Hematocrit Date Value Ref Range Status 06/13/2023 41.9 40.0 - 52.0 % Final Platelets Date Value Ref Range Status 06/13/2023 198 140 - 440 10*3/uL Final MCV Date Value Ref Range Status 06/13/2023 83.5 80.0 - 98.0 fL Final SODIUM Date Value Ref Range Status 06/13/2023 135 135 - 145 mmol/L Final POTASSIUM Date Value Ref Range Status 06/13/2023 4.3 3.5 - 5.1 mmol/L Final CHLORIDE Date Value Ref Range Status 06/13/2023 99 98 - 107 mmol/L Final CARBON DIOXIDE Date Value Ref Range Status 06/13/2023 27 22 - 30 mmol/L Final UREA NITROGEN Date Value Ref Range Status 06/13/2023 21 (H) 9 - 20 mg/dL Final CREATININE Date Value Ref Range Status 06/13/2023 1.25 0.66 - 1.25 mg/dL Final GLUCOSE Date Value Ref Range Status 06/13/2023 90 70 - 100 mg/dL Final CALCIUM Date Value Ref Range Status 06/13/2023 9.1 8.4 - 10.4 mg/dL Final AST (SGOT) Date Value Ref Range Status 06/13/2023 37 15 - 46 U/L Final ALT Date Value Ref Range Status 06/13/2023 27 0 - 49 U/L Final TOTAL PROTEIN Date Value Ref Range Status 06/13/2023 8.4 (H) 6.3 - 8.2 g/dL Final BILIRUBIN, TOTAL Date Value Ref Range Status 06/13/2023 0.8 0.2 - 1.3 mg/dL Final ALKALINE PHOSPHATASE Date Value Ref Range Status 06/13/2023 89 38 - 126 U/L Final INR Date Value Ref Range Status 06/13/2023 1.0 0.9 - 1.1 Final Comment: Recommended Anticoagulant Therapy: SEE BELOW ----- INR of 2.0 - 3.0 : - Prophylaxis of Venous Thrombosis (high-risk surgery) - Treatment of Venous Thrombosis - Treatment of Pulmonary Embolism (Includes tissue heart valves, Acute Myocardial Infarction to prevent systemic embolism, Valvular Heart Disease, and Atrial Fibrillation) ----- INR of 2.5 - 3.5 : - Mechanical Prosthetic Valves (high risk) - If oral anticoagulant therapy is used to prevent Myocardial Infarction TROPONIN I Date Value Ref Range Status 06/13/2023 0.019 <0.034 ng/mL Final THYROID STIMULATING HORMONE Date Value Ref Range Status 06/13/2023 1.317 0.465 - 4.680 uIU/mL Final Assessment and Plan: Active Problems: There are no active Hospital Problems. Acute episode of delirium Amnestic event - Admit to [facility] - Spoke to gasoline locomotive crane operator attending with following recs: - Can consider neurology consult for further imaging with MRI brain - Can also consider geriatric consult - Delirium and fall precautions ordered - UA and MAT pending at this time - Goals of Care: FULL CODE - DVT Prophylaxis: SCD's or Sequential Compression Device - GI Prophylaxis: Not Indicated - Diet: General - BMI Classification: Body mass index is 20.61 kg/m . Normal (BMI 18.5-24.9) - Disposition: Admit to [facility]. - Given the signs and symptoms associated with his primary diagnosis in the setting of his comorbid conditions, he is expected to require <48 hrs of hospital care (i.e. observation level care). Associated attestation - Sierra Hay MD - 06/14/2023 6:00 PM EST I have discussed the care of Cory Mueller with the medical student and/or resident. I have personally taken a history, examined the patient, and performed the associated medical decision making activities. I have reviewed & verified the attested documentation. Unless otherwise noted below, this documentation reflects the history, physical exam, and medical decision making that I performed myself. Please see note for my personal highlights or additions. Patient seen and examined personally (Date of Service: 06/14/23) Pt with no significant PMH brought to ER when found at [employer] not knowing why he was there. He had no complaints at all in ER evaluation, denies any to me today. He does not really remember much of what happened. He takes no medications. No PCP or doctor for many years. He denies any drug use except remote. He does endorse a significant daily alcohol history for many years, quit about 9 months ago. He has noted being forgetful. He lives alone, one sister in [place], but they do not really talk. No children. Is retired. Does all IDLs and ADLs. Has a history of anxiety, denies anxiety or depressed mood now. Denies any psychotic symptoms. ER labs and work up unremarkable MMSE scored 20/30 Plan is to get MRI Consult Geriatrics- likely has some cognitive decline and dementia. Could be due to chronic alcohol use. Check B12, Vitamin D, RPR 7AM-5PM: contact resident on [facility] Med A team (found by hoovering over attending's name on left side of patient's chart) 5PM-7AM: contact AI2 (Med Team A or B) or AI3 (Med Team C or D) res I personally spent a total of 60 minutes on date of service preparing to see the patient, performing a medically appropriate examination and evaluation , counseling patient on plan of care, ordering tests documented above, documenting clinical information in the electronic health record, and communicating results to the patient. documented in this encounter [facility] 06-14-2023 Emergency department Note Pt sleeping, audible snoring noted. Equal and bilateral chest rise Ze aMrquez 06/14/23 0050 [facility] 06-14-2023 Emergency department Note Pt sleeping, audible snoring noted. Equal and bilateral chest rise Ze Marquez 06/14/23 0050 Pt states that at this time he does not have to urinate. Will attempt to get the urine sample at a later time FRANTZ Fitzgerald 06/13/23 6917 Emergency Department Encounter [facility] Patient: Cory Mueller : 1950 Date of Evaluation: 06/13/2023 ED Supervising Physician: Elham Estrada DO I personally evaluated Cory Mueller and made/approved the management plan and take responsibility for the patient management. This will serve as my Supervisory note and shared attestation. I did perform a substantive portion of the visit including all aspects of the Medical Decision Making. I wore appropriate PPE for the entirety of this encounter. In brief, Cory Mueller is a 72 y.o. that presents to the emergency department for confusion and memory loss. Patient found wandering near [place] by EMS some memory loss from tonight. He denies any drugs or alcohol or medical history no daily medications. He does remember watching TV earlier today, but unsure why he was on bus. He has no medical history or daily medications. Focused exam: Mild hypertension otherwise vital signs stable afebrile no acute distress, eyes PERRL, EOMI, unremarkable oropharynx, rrr, clear lungs without respiratory distress abdomen soft nontender to palpation no peritoneal signs, no focal deficits alert and oriented x 2 knows the month but not year, alert to person and place, NIH is 0, does have asterixis bilateral arms Brief ED course/MDM: 72yo M presented for confusion detailed above. Exam as above. Will evaluate for a number of eitologies including intracranial abnormality, electrolyte abnormality, renal function abnormality, hepatic function abnormality. CT head without acute findings chest x-ray without acute findings, CBC without leukocytosis leukopenia or anemia otherwise grossly unremarkable, CMP EGFR 61.6 otherwise unremarkable unable to trend no recent blood work VBG not significantly retaining CO2 normal pH otherwise grossly unremarkable undetectable ammonia undetectable alcohol lactic within normal range coags within normal range, troponin within normal range, thyroid studies within normal range. UA to be collected. Admit for confusion with unsafe discharge home. Patient in agreement with plan. Patient admitted by ER for further evaluation and treatment. Diagnostics interpreted by me: I personally discussed the patient's management with other clinicians: All diagnostic, treatment, and disposition decisions were made by myself in conjunction with the Resident. I also supervised woodall portions of any procedures performed by the Resident. For all further details of the patient's emergency department visit, please see their documentation. (Comment: Please note this report has been produced using speech recognition software and may contain errors related to that system including errors in grammar, punctuation, and spelling, as well as words and phrases that may be inappropriate. If there are any questions or concerns please feel free to contact the dictating provider for clarification.) Elham Estrada DO [employer] Elham Estrada DO 06/18/231909 EMERGENCY DEPARTMENT ENCOUNTER Pt Name: Cory Mueller Birthdate 1950 Date of evaluation: 06/13/2023 ED Provider: Elpidio Sorenson MD CHIEF COMPLAINT Chief Complaint Patient presents with Altered Mental Status Pt is brought into the ED by EMS. Per EMS the pt was found wandering near the [address] [facility] the [facility]. Pt states that he lives in [place]. Pt states that he remembers getting on the bus this morning. Pt states that he is not sure where he was going when he got on the bus. Pt states that he does not remember much from today. HISTORY OF PRESENT ILLNESS (Location/Symptom, Timing/Onset, Context/Setting, Quality, Duration, Modifying Factors, Severity) Note limiting factors. I wore appropriate PPE for the entirety of this encounter. HPI Cory Mueller is a 72 y.o. who presents to the emergency department with confusion and decreased memory. Patient was brought in by EMS after being found wandering around [place], A&O x 2. Patient states he lives alone in an apartment and was watching TV. He first realized something was wrong with his memory when he was on the bus today on his way to [place]. Patient states that he does not recall why he was on the bus and normally does not travel on nights. Patient denies any past medical history. Has a history of tobacco use. Denies any alcohol or drug use. Denies any daily medications. Additionally he denies any focal neurological deficits, speech slurring, loss of consciousness, dizziness, headache, shortness of breath, chest pain, abdominal pain, leg swelling, palpitations, nausea/vomiting, recent illness, diarrhea. He is A&O x3 on examination, he is able to state his name and that we are in [place] and that it is May. When asked the year he states it is 2003. When corrected and told his 2023 he seems very surprised with this answer. NIHSS on examination is 0. Nursing Notes were reviewed. Limitations to history: Altered mental status/confusion Outside historians: EMS REVIEW OF SYSTEMS Review of Systems Constitutional: Negative for chills and fever. HENT: Negative for ear pain and sore throat. Eyes: Negative for pain and visual disturbance. Respiratory: Negative for cough and shortness of breath. Cardiovascular: Negative for chest pain and palpitations. Gastrointestinal: Negative for abdominal pain and vomiting. Genitourinary: Negative for dysuria and hematuria. Musculoskeletal: Negative for arthralgias and back pain. Skin: Negative for color change and rash. Neurological: Negative for dizziness, tremors, seizures, syncope, facial asymmetry, speech difficulty, weakness, light-headedness, numbness and headaches. Psychiatric/Behavioral: Positive for confusion. Negative for agitation. All other systems reviewed and are negative. Pertinent positives and negatives as per HPI. PAST MEDICAL HISTORY History reviewed. No pertinent past medical history. SURGICAL HISTORY History reviewed. No pertinent surgical history. CURRENT MEDICATIONS Previous Medications No medications on file ALLERGIES Patient has no known allergies. FAMILY HISTORY No family history on file. SOCIAL HISTORY Social History Socioeconomic History Marital status: Tobacco Use Smoking status: Every Day Packs/day: .5 Types: Cigarettes Smokeless tobacco: Never SCREENINGS NIH Stroke Scale 1A. Level of Consciousness: Alert, Keenly Responsive 1B. Ask Month and Age: Both Questions Right 1C. Blink Eyes & Squeeze Hands: Performs Both Tasks 2. Best Gaze: Normal 3. Visual: No Visual Loss 4. Facial Palsy: Normal Symmetrical Movements 5A. Motor - Left Arm: No Drift 5B. Motor - Right Arm: No Drift 6A. Motor - Left Leg: No Drift 6B. Motor - Right Leg: No Drift 7. Limb Ataxia: Absent 8. Sensory Loss: Normal 9. Best Language: No Aphasia 10. Dysarthria: Normal 11. Extinction and Inattention: No Abnormality NIH Stroke Scale: 0 PHYSICAL EXAM ED Triage Vitals Temp Pulse Resp BP -- -- -- -- SpO2 Temp src Heart Rate Source Patient Position -- -- -- -- BP Location FiO2 (%) -- -- Physical Exam Vitals and nursing note reviewed. Constitutional: General: He is not in acute distress. Appearance: He is well-developed. Comments: Smells of cigarette smoke. HENT: Head: Normocephalic and atraumatic. Right Ear: External ear normal. Left Ear: External ear normal. Nose: Nose normal. Mouth/Throat: Mouth: Mucous membranes are moist. Pharynx: Oropharynx is clear. Comments: Poor dentition. Eyes: General: No visual field deficit or scleral icterus. Extraocular Movements: Extraocular movements intact. Conjunctiva/sclera: Conjunctivae normal. Pupils: Pupils are equal, round, and reactive to light. Cardiovascular: Rate and Rhythm: Normal rate and regular rhythm. Pulses: Normal pulses. Heart sounds: Normal heart sounds. No murmur heard. Pulmonary: Effort: Pulmonary effort is normal. No respiratory distress. Breath sounds: Normal breath sounds. Abdominal: General: Abdomen is flat. Palpations: Abdomen is soft. Tenderness: There is no abdominal tenderness. Musculoskeletal: General: No swelling or tenderness. Normal range of motion. Cervical back: Normal range of motion and neck supple. Right lower leg: No edema. Left lower leg: No edema. Skin: General: Skin is warm and dry. Capillary Refill: Capillary refill takes less than 2 seconds. Coloration: Skin is not jaundiced. Neurological: General: No focal deficit present. Mental Status: He is alert. He is disoriented. Cranial Nerves: Cranial nerves 2-12 are intact. No cranial nerve deficit. Sensory: No sensory deficit. Motor: No weakness. Coordination: Coordination normal. Gait: Gait normal. Comments: Some very mild asterixis, right greater than left. Psychiatric: Attention and Perception: Attention normal. Mood and Affect: Mood and affect normal. Speech: Speech normal. Behavior: Behavior normal. Cognition and Memory: He exhibits impaired recent memory. DIAGNOSTIC RESULTS RADIOLOGY (Per Emergency Physician): Interpretation per the Radiologist below, if available at the time of this note: CT head wo IV contrast Final Result No acute findings. Report Dictated on Electronically Signed By: Scottie Rock MD Electronically Signed Date/Time: 06/13/2023 11:51 PM EST XR chest 1 view Final Result 1. No acute findings. Report Dictated on Electronically Signed By: Ed Valdez MD Electronically Signed Date/Time: 06/13/2023 11:07 PM EST LABS: Labs Reviewed CBC WITH AUTO DIFFERENTIAL - Abnormal Result Value Auto WBC 5.7 RBC 5.01 Hemoglobin 14.6 Hematocrit 41.9 MCV 83.5 MCH 29.1 MCHC 34.8 RDW 14.5 Platelets 198 MPV 8.4 nRBC 0.1 Neutrophils Relative 69.3 Lymphocytes Relative 16.5 (*) Monocytes Relative 12.0 (*) Eosinophils Relative 1.6 Basophils Relative 0.6 Neutrophils Absolute 4.0 Lymphocytes Absolute 0.9 (*) Monocytes Absolute 0.7 Eosinophils Absolute 0.1 Basophils Absolute 0.0 COMPREHENSIVE METABOLIC PANEL - Abnormal SODIUM 135 POTASSIUM 4.3 CHLORIDE 99 CARBON DIOXIDE 27 ANION GAP 9 UREA NITROGEN 21 (*) CREATININE 1.25 GLUCOSE 90 CALCIUM 9.1 AST (SGOT) 37 ALT 27 ALKALINE PHOSPHATASE 89 ALBUMIN 4.3 BILIRUBIN, TOTAL 0.8 TOTAL PROTEIN 8.4 (*) eGFR 61.6 BLOOD GAS, VENOUS - Abnormal pH, Venous 7.388 pCO2, Venous 46.6 pO2, Venous 35.4 HCO3, Venous 27.4 (*) O2 Sat, Venous 61.6 Base Excess, Venous 1.8 Hgb, blood gas 15.3 TCO2, Venous 28.9 (*) Source Of Oxygen Room Air Narrative: Interpret with caution, pO2 value falsely increased due to vacuum in tube. For accurate results, please draw on a syringe. AMMONIA - Abnormal AMMONIA <9 (*) ETHANOL - Normal ETHANOL IN SER/PLAS <0.010 Narrative: NOTE: This result is for medical treatment only. Analysis performed using non-forensic procedures. LACTIC ACID WITH REFLEX - Normal LACTIC ACID 1.1 PROTHROMBIN TIME - Normal PROTHROMBIN TIME 10.4 INR 1.0 TROPONIN, WITH SERIAL REFLEX - Normal TROPONIN I 0.019 Narrative: Patients with high levels of Biotin oral intake (ie >5 mg/day) may have falsely decreased Troponin levels. FREE T4 - Normal FREE T4 1.25 THYROID STIMULATING HORMONE - Normal THYROID STIMULATING HORMONE 1.317 COMPLETE URINALYSIS WITH REFLEX TO CULTURE Narrative: The following orders were created for panel order Complete Urinalysis with reflex to Culture. Procedure Abnormality Status --------- ------ Complete Urinalysis[[id number]] Please view results for these tests on the individual orders. DRUGS OF ABUSE COMPLETE URINALYSIS TROPONIN I TROPONIN I CBC WITH AUTO DIFFERENTIAL COMPREHENSIVE METABOLIC PANEL WITH MG REFLEX Narrative: The following orders were created for panel order Comprehensive Metabolic Panel with Mg Reflex. Procedure Abnormality Status --------- ------ Comprehensive metabolic p...[[id number]] Please view results for these tests on the individual orders. COMPREHENSIVE METABOLIC PANEL All other labs were within normal range or not returned as of this dictation. EMERGENCY DEPARTMENT COURSE and DIFFERENTIAL DIAGNOSIS/MDM: Vitals: Vitals: 06/13/23 2219 06/13/23 2309 06/14/23 0154 06/14/23 0414 BP: (!) 163/98 (!) 148/92 (!) 149/100 BP Location: Right arm Left arm Patient Position: Sitting Sitting Pulse: 70 80 77 Resp: 15 20 16 Temp: TempSrc: SpO2: 98% 100% 98% 100% Weight: Height: ED Course as of 06/14/23 0418 [facility] Jun 13, 2023 087 72-year-old male presents via EMS after being found wandering around a store with no knowledge of how he got there. Patient denies any medical history or previous episodes. Exam is largely unremarkable with no concern for focal neurological deficits or strokelike symptoms. Patient denies any dizziness, headache. Slight asterixis seen on exam. Otherwise his exam is unremarkable. Vital signs are stable. Patient does not recall the year and when corrected he looks quite surprised. Will obtain ammonia levels, thyroid function levels, coagulation studies, ethanol level, CMP, UDS, troponin, lactic acid, VBG, CBC, and urinalysis. Will also given his new onset confusion we will obtain CT head without contrast. Also look for infectious causes and obtain a chest x-ray in addition other labs. On last vital check his blood pressure was elevated at 163/98. He was afebrile throughout. Heart rate is approximately 70. He is saturating 100% on room air with a respiratory rate of 15. [PO] SatJun 14, 2023 0005 CMP showed no electrolyte abnormalities. Normal kidney function. No transaminitis. CBC showed no leukocytosis and no anemia. Lactic acid was unremarkable. Ammonia levels were normal. Ethanol level was negative. Troponin was unremarkable. Thyroid function tests were unremarkable. Coagulations was within normal limits. EGD showed pH of 7.3, pCO2 of 46.6, pO2 of 35.4, bicarb of 27.4. Mixed O2 of 61.6. Patient has been unable to urinate since he has been here and we have not been able to collect a UDS or urinalysis. CT scan of the head showed no intracranial hemorrhage or acute process. Chest x-ray showed no effusions, no cardiomegaly, no acute processes. [PO] 0130 After patient's evaluation there is no obvious cause of patient's altered mental status at this time. Thought has to be given towards that this is possibly an undiscovered metabolic process versus psychiatric disorder versus pathology of aging. Given patient was altered earlier today and had a history of travel to location without knowledge that is concerning to allow him to go home without any sort of her diagnosis or treatment. Will seek to discuss patient with the admitting team to have patient be evaluated by geriatrics in the morning and reassessed for further alteration of mentation. This was discussed with patient who was amenable to the plan to stay overnight for reevaluation in the morning and possible consultation with geriatrics versus potentially neurology as well. [PO] 0155 Spoke to admitting resident team, they will come down the emergency department to evaluate patient at bedside. [PO] 0409 Patient was excepted for admission by the AR team for further evaluation and final disposition. [PO] ED Course User Index [PO] Elpidio Sorenson MD Diagnoses as of 06/14/23 0418 Delirium ED Medications managed: Medications - No data to display PROCEDURES: Unless otherwise noted below, none Procedures FINAL IMPRESSION 1. Delirium DISPOSITION Admit 06/14/2023 02:40:05 AM PATIENT REFERRED TO: No follow-up provider specified. DISCHARGE MEDICATIONS: New Prescriptions No medications on file (Comment: Please note this report has been produced using speech recognition software and may contain errors related to that system including errors in grammar, punctuation, and spelling, as well as words and phrases that may be inappropriate. If there are any questions or concerns please feel free to contact the dictating provider for clarification.) Elpidio Sorenson MD (electronically signed) Emergency Medicine Provider Elpidio Sorenson MD Resident 06/14/23 0418 documented in this encounter [facility] 06-13-2023 Note NOTE: This result is for medical treatment only. Analysis performed using non-forensic procedures. [facility] 06-13-2023 Emergency department Note Pt states that at this time he does not have to urinate. Will attempt to get the urine sample at a later time FRANTZ Fitzgerald 06/13/23 2311 [facility] 06-13-2023 Physician Emergency department Note Emergency Department Encounter [facility] Patient: Cory Mueller : 1950 Date of Evaluation: 06/13/2023 ED Supervising Physician: Elham Estrada DO I personally evaluated Cory Mueller and made/approved the management plan and take responsibility for the patient management. This will serve as my Supervisory note and shared attestation. I did perform a substantive portion of the visit including all aspects of the Medical Decision Making. I wore appropriate PPE for the entirety of this encounter. In brief, Cory Mueller is a 72 y.o. that presents to the emergency department for confusion and memory loss. Patient found wandering [place] by EMS some memory loss from tonight. He denies any drugs or alcohol or medical history no daily medications. He does remember watching TV earlier today, but unsure why he was on bus. He has no medical history or daily medications. Focused exam: Mild hypertension otherwise vital signs stable afebrile no acute distress, eyes PERRL, EOMI, unremarkable oropharynx, rrr, clear lungs without respiratory distress abdomen soft nontender to palpation no peritoneal signs, no focal deficits alert and oriented x 2 knows the month but not year, alert to person and place, NIH is 0, does have asterixis bilateral arms Brief ED course/MDM: 72yo M presented for confusion detailed above. Exam as above. Will evaluate for a number of eitologies including intracranial abnormality, electrolyte abnormality, renal function abnormality, hepatic function abnormality. CT head without acute findings chest x-ray without acute findings, CBC without leukocytosis leukopenia or anemia otherwise grossly unremarkable, CMP EGFR 61.6 otherwise unremarkable unable to trend no recent blood work VBG not significantly retaining CO2 normal pH otherwise grossly unremarkable undetectable ammonia undetectable alcohol lactic within normal range coags within normal range, troponin within normal range, thyroid studies within normal range. UA to be collected. Admit for confusion with unsafe discharge home. Patient in agreement with plan. Patient admitted by ER for further evaluation and treatment. Diagnostics interpreted by me: I personally discussed the patient's management with other clinicians: All diagnostic, treatment, and disposition decisions were made by myself in conjunction with the Resident. I also supervised woodall portions of any procedures performed by the Resident. For all further details of the patient's emergency department visit, please see their documentation. (Comment: Please note this report has been produced using speech recognition software and may contain errors related to that system including errors in grammar, punctuation, and spelling, as well as words and phrases that may be inappropriate. If there are any questions or concerns please feel free to contact the dictating provider for clarification.) Elham Estrada DO [employer] Elham Estrada DO 06/18/231909 [facility] [employer] Phone: 06-13-2023 Physician Emergency department Note EMERGENCY DEPARTMENT ENCOUNTER Pt Name: Cory Mueller Birthdate 1950 Date of evaluation: 06/13/2023 ED Provider: Elpidio Sorenson MD CHIEF COMPLAINT Chief Complaint Patient presents with Altered Mental Status Pt is brought into the ED by EMS. Per EMS the pt was found wandering near the [place] [address] [facility]. Pt states that he lives in [place]. Pt states that he remembers getting on the bus this morning. Pt states that he is not sure where he was going when he got on the bus. Pt states that he does not remember much from today. HISTORY OF PRESENT ILLNESS (Location/Symptom, Timing/Onset, Context/Setting, Quality, Duration, Modifying Factors, Severity) Note limiting factors. I wore appropriate PPE for the entirety of this encounter. HPI Cory Mueller is a 72 y.o. who presents to the emergency department with confusion and decreased memory. Patient was brought in by EMS after being found wandering around [place], A&O x 2. Patient states he lives alone in an apartment and was watching TV. He first realized something was wrong with his memory when he was on the bus today on his way to [place]. Patient states that he does not recall why he was on the bus and normally does not travel on nights. Patient denies any past medical history. Has a history of tobacco use. Denies any alcohol or drug use. Denies any daily medications. Additionally he denies any focal neurological deficits, speech slurring, loss of consciousness, dizziness, headache, shortness of breath, chest pain, abdominal pain, leg swelling, palpitations, nausea/vomiting, recent illness, diarrhea. He is A&O x3 on examination, he is able to state his name and that we are in [place] and that it is May. When asked the year he states it is 2003. When corrected and told his 2023 he seems very surprised with this answer. NIHSS on examination is 0. Nursing Notes were reviewed. Limitations to history: Altered mental status/confusion Outside historians: EMS REVIEW OF SYSTEMS Review of Systems Constitutional: Negative for chills and fever. HENT: Negative for ear pain and sore throat. Eyes: Negative for pain and visual disturbance. Respiratory: Negative for cough and shortness of breath. Cardiovascular: Negative for chest pain and palpitations. Gastrointestinal: Negative for abdominal pain and vomiting. Genitourinary: Negative for dysuria and hematuria. Musculoskeletal: Negative for arthralgias and back pain. Skin: Negative for color change and rash. Neurological: Negative for dizziness, tremors, seizures, syncope, facial asymmetry, speech difficulty, weakness, light-headedness, numbness and headaches. Psychiatric/Behavioral: Positive for confusion. Negative for agitation. All other systems reviewed and are negative. Pertinent positives and negatives as per HPI. PAST MEDICAL HISTORY History reviewed. No pertinent past medical history. SURGICAL HISTORY History reviewed. No pertinent surgical history. CURRENT MEDICATIONS Previous Medications No medications on file ALLERGIES Patient has no known allergies. FAMILY HISTORY No family history on file. SOCIAL HISTORY Social History Socioeconomic History Marital status: Tobacco Use Smoking status: Every Day Packs/day: .5 Types: Cigarettes Smokeless tobacco: Never SCREENINGS NIH Stroke Scale 1A. Level of Consciousness: Alert, Keenly Responsive 1B. Ask Month and Age: Both Questions Right 1C. Blink Eyes & Squeeze Hands: Performs Both Tasks 2. Best Gaze: Normal 3. Visual: No Visual Loss 4. Facial Palsy: Normal Symmetrical Movements 5A. Motor - Left Arm: No Drift 5B. Motor - Right Arm: No Drift 6A. Motor - Left Leg: No Drift 6B. Motor - Right Leg: No Drift 7. Limb Ataxia: Absent 8. Sensory Loss: Normal 9. Best Language: No Aphasia 10. Dysarthria: Normal 11. Extinction and Inattention: No Abnormality NIH Stroke Scale: 0 PHYSICAL EXAM ED Triage Vitals Temp Pulse Resp BP -- -- -- -- SpO2 Temp src Heart Rate Source Patient Position -- -- -- -- BP Location FiO2 (%) -- -- Physical Exam Vitals and nursing note reviewed. Constitutional: General: He is not in acute distress. Appearance: He is well-developed. Comments: Smells of cigarette smoke. HENT: Head: Normocephalic and atraumatic. Right Ear: External ear normal. Left Ear: External ear normal. Nose: Nose normal. Mouth/Throat: Mouth: Mucous membranes are moist. Pharynx: Oropharynx is clear. Comments: Poor dentition. Eyes: General: No visual field deficit or scleral icterus. Extraocular Movements: Extraocular movements intact. Conjunctiva/sclera: Conjunctivae normal. Pupils: Pupils are equal, round, and reactive to light. Cardiovascular: Rate and Rhythm: Normal rate and regular rhythm. Pulses: Normal pulses. Heart sounds: Normal heart sounds. No murmur heard. Pulmonary: Effort: Pulmonary effort is normal. No respiratory distress. Breath sounds: Normal breath sounds. Abdominal: General: Abdomen is flat. Palpations: Abdomen is soft. Tenderness: There is no abdominal tenderness. Musculoskeletal: General: No swelling or tenderness. Normal range of motion. Cervical back: Normal range of motion and neck supple. Right lower leg: No edema. Left lower leg: No edema. Skin: General: Skin is warm and dry. Capillary Refill: Capillary refill takes less than 2 seconds. Coloration: Skin is not jaundiced. Neurological: General: No focal deficit present. Mental Status: He is alert. He is disoriented. Cranial Nerves: Cranial nerves 2-12 are intact. No cranial nerve deficit. Sensory: No sensory deficit. Motor: No weakness. Coordination: Coordination normal. Gait: Gait normal. Comments: Some very mild asterixis, right greater than left. Psychiatric: Attention and Perception: Attention normal. Mood and Affect: Mood and affect normal. Speech: Speech normal. Behavior: Behavior normal. Cognition and Memory: He exhibits impaired recent memory. DIAGNOSTIC RESULTS RADIOLOGY (Per Emergency Physician): Interpretation per the Radiologist below, if available at the time of this note: CT head wo IV contrast Final Result No acute findings. Report Dictated on Electronically Signed By: Scottie Rock MD Electronically Signed Date/Time: 06/13/2023 11:51 PM EST XR chest 1 view Final Result 1. No acute findings. Report Dictated on Electronically Signed By: Ed Valdez MD Electronically Signed Date/Time: 06/13/2023 11:07 PM EST LABS: Labs Reviewed CBC WITH AUTO DIFFERENTIAL - Abnormal Result Value Auto WBC 5.7 RBC 5.01 Hemoglobin 14.6 Hematocrit 41.9 MCV 83.5 MCH 29.1 MCHC 34.8 RDW 14.5 Platelets 198 MPV 8.4 nRBC 0.1 Neutrophils Relative 69.3 Lymphocytes Relative 16.5 (*) Monocytes Relative 12.0 (*) Eosinophils Relative 1.6 Basophils Relative 0.6 Neutrophils Absolute 4.0 Lymphocytes Absolute 0.9 (*) Monocytes Absolute 0.7 Eosinophils Absolute 0.1 Basophils Absolute 0.0 COMPREHENSIVE METABOLIC PANEL - Abnormal SODIUM 135 POTASSIUM 4.3 CHLORIDE 99 CARBON DIOXIDE 27 ANION GAP 9 UREA NITROGEN 21 (*) CREATININE 1.25 GLUCOSE 90 CALCIUM 9.1 AST (SGOT) 37 ALT 27 ALKALINE PHOSPHATASE 89 ALBUMIN 4.3 BILIRUBIN, TOTAL 0.8 TOTAL PROTEIN 8.4 (*) eGFR 61.6 BLOOD GAS, VENOUS - Abnormal pH, Venous 7.388 pCO2, Venous 46.6 pO2, Venous 35.4 HCO3, Venous 27.4 (*) O2 Sat, Venous 61.6 Base Excess, Venous 1.8 Hgb, blood gas 15.3 TCO2, Venous 28.9 (*) Source Of Oxygen Room Air Narrative: Interpret with caution, pO2 value falsely increased due to vacuum in tube. For accurate results, please draw on a syringe. AMMONIA - Abnormal AMMONIA <9 (*) ETHANOL - Normal ETHANOL IN SER/PLAS <0.010 Narrative: NOTE: This result is for medical treatment only. Analysis performed using non-forensic procedures. LACTIC ACID WITH REFLEX - Normal LACTIC ACID 1.1 PROTHROMBIN TIME - Normal PROTHROMBIN TIME 10.4 INR 1.0 TROPONIN, WITH SERIAL REFLEX - Normal TROPONIN I 0.019 Narrative: Patients with high levels of Biotin oral intake (ie >5 mg/day) may have falsely decreased Troponin levels. FREE T4 - Normal FREE T4 1.25 THYROID STIMULATING HORMONE - Normal THYROID STIMULATING HORMONE 1.317 COMPLETE URINALYSIS WITH REFLEX TO CULTURE Narrative: The following orders were created for panel order Complete Urinalysis with reflex to Culture. Procedure Abnormality Status --------- ------ Complete Urinalysis[[id number]] Please view results for these tests on the individual orders. DRUGS OF ABUSE COMPLETE URINALYSIS TROPONIN I TROPONIN I CBC WITH AUTO DIFFERENTIAL COMPREHENSIVE METABOLIC PANEL WITH MG REFLEX Narrative: The following orders were created for panel order Comprehensive Metabolic Panel with Mg Reflex. Procedure Abnormality Status --------- ------ Comprehensive metabolic p...[[id number]] Please view results for these tests on the individual orders. COMPREHENSIVE METABOLIC PANEL All other labs were within normal range or not returned as of this dictation. EMERGENCY DEPARTMENT COURSE and DIFFERENTIAL DIAGNOSIS/MDM: Vitals: Vitals: 06/13/23 2219 06/13/23 2309 06/14/23 0154 06/14/23 0414 BP: (!) 163/98 (!) 148/92 (!) 149/100 BP Location: Right arm Left arm Patient Position: Sitting Sitting Pulse: 70 80 77 Resp: 15 20 16 Temp: TempSrc: SpO2: 98% 100% 98% 100% Weight: Height: ED Course as of 06/14/23 0418 Viridiana Jun 13, 2023 2209 72-year-old male presents via EMS after being found wandering around a store with no knowledge of how he got there. Patient denies any medical history or previous episodes. Exam is largely unremarkable with no concern for focal neurological deficits or strokelike symptoms. Patient denies any dizziness, headache. Slight asterixis seen on exam. Otherwise his exam is unremarkable. Vital signs are stable. Patient does not recall the year and when corrected he looks quite surprised. Will obtain ammonia levels, thyroid function levels, coagulation studies, ethanol level, CMP, UDS, troponin, lactic acid, VBG, CBC, and urinalysis. Will also given his new onset confusion we will obtain CT head without contrast. Also look for infectious causes and obtain a chest x-ray in addition other labs. On last vital check his blood pressure was elevated at 163/98. He was afebrile throughout. Heart rate is approximately 70. He is saturating 100% on room air with a respiratory rate of 15. [PO] Fri Jun 14, 2023 0005 CMP showed no electrolyte abnormalities. Normal kidney function. No transaminitis. CBC showed no leukocytosis and no anemia. Lactic acid was unremarkable. Ammonia levels were normal. Ethanol level was negative. Troponin was unremarkable. Thyroid function tests were unremarkable. Coagulations was within normal limits. EGD showed pH of 7.3, pCO2 of 46.6, pO2 of 35.4, bicarb of 27.4. Mixed O2 of 61.6. Patient has been unable to urinate since he has been here and we have not been able to collect a UDS or urinalysis. CT scan of the head showed no intracranial hemorrhage or acute process. Chest x-ray showed no effusions, no cardiomegaly, no acute processes. [PO] 0130 After patient's evaluation there is no obvious cause of patient's altered mental status at this time. Thought has to be given towards that this is possibly an undiscovered metabolic process versus psychiatric disorder versus pathology of aging. Given patient was altered earlier today and had a history of travel to location without knowledge that is concerning to allow him to go home without any sort of her diagnosis or treatment. Will seek to discuss patient with the admitting team to have patient be evaluated by geriatrics in the morning and reassessed for further alteration of mentation. This was discussed with patient who was amenable to the plan to stay overnight for reevaluation in the morning and possible consultation with geriatrics versus potentially neurology as well. [PO] 0155 Spoke to admitting resident team, they will come down the emergency department to evaluate patient at bedside. [PO] 0409 Patient was excepted for admission by the AR team for further evaluation and final disposition. [PO] ED Course User Index [PO] Elpidio Sorenson MD Diagnoses as of 06/14/238 Delirium ED Medications managed: Medications - No data to display PROCEDURES: Unless otherwise noted below, none Procedures FINAL IMPRESSION 1. Delirium DISPOSITION Admit 06/14/2023 02:40:05 AM PATIENT REFERRED TO: No follow-up provider specified. DISCHARGE MEDICATIONS: New Prescriptions No medications on file (Comment: Please note this report has been produced using speech recognition software and may contain errors related to that system including errors in grammar, punctuation, and spelling, as well as words and phrases that may be inappropriate. If there are any questions or concerns please feel free to contact the dictating provider for clarification.) Elpidio Sorenson MD (electronically signed) Emergency Medicine Provider Elpidio Sorenson MD Resident 06/14/23417 [employer] Phone: documented in this encounter [facility] HospitalVoy[facility] TherapeuticsReason for referral (narrative)* Consultation (Routine) - Authorized Specialty Diagnoses / Procedures Referred By Dennys georges Referred To Contact Geriatric Medicine Diagnoses Cognitive impairment Procedures MA OFFICE/OUTPATIENT [facility] 60 MINUTES Bradley Millard MD [address] [place] [address] [facility] [address] [address] [place] [address] Referral ID Status Reason Start Date Expiration Date Visits Requested Visits Authorized [id number] Authorized Specialty Services Required 06/15/2023 06/14/2024 1 1 [facility] Health Summary Purpose Family History No Family History Records FoundNo Family History Records FoundNo Family History Records Found Advance Directives No Advanced Directives Records FoundDocuments on File Type Date 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 DATE CREATED AUTHOR AUTHOR'S ORGANIZ ATION 07/09/2023 [email or web address] Reason for Visit (unrecogniz ed section and content) Specialty Diagnoses / Procedures Referred By Dennys georges Referred To Contact Diagnoses Delirium Procedures .. Sierra Hay MD [address] [place] [address] [address] [address] Referral ID Status Reason Start Date Expiration Date Visits Re quested Visits Authorized [id number] 1 Scheduled Active and Recently Administ ered Medications (unrecognized section and content) PRN Medication Order 06/30/2023 07/01/2023 07/02/2023 ibuprofen tablet 600 mg 600 mg, Oral, Every 6 hours PRN, headaches, Starting on 06/30/23 at 1800 1847 (Given - Provider: Fish Mcclellan RN) 0431 (Given - Provider: Naomy Morse RN)1033 (Given - Provider: Carlene Robbins LPN)1758 (Given - Provider: Carlene Robbins LPN) 0803 (Given - Provider: Spring Dacosta RN)1404 (Given - Provider: Spring Dacosta RN) melatonin tablet 3 mg (CANCELED) 3 mg, Oral, Nightly PRN, sleep, Starting on 06/17/23 at 0413 2020 (Given - Provider: Naomy Morse RN) sodium chloride ([place]) 0.65 % nasal spray 1 spray 1 spray, Each Nostril, PRN, congestion, Starting on 06/15/23 at 2012 FOR RECORDS PERTAINING TO PATIENTS WHO ARE OR HAVE BEEN ENROLLED IN A CHEMICAL DEPENDENCY/SUBSTANCEABUSE PROGRAM, SOME INFORMATION MAY BE OMITTED. This clinical summary was aggregated from multiple sources. Caution should be exercised in using it in the provision of clinical care. This summary normalizes information from multiple sources, and as a consequence, information in this document may materially change the coding, format and clinical context of patient data. In addition, data may be omitted in some cases. CLINICAL DECISIONS SHOULD BE BASED ON THE PRIMARY CLINICAL RECORDS. [facility] provides no warranty or guarantee of the accuracy or completeness of information in this document.
[2023-07-17 06:44] LABS: Hemoglobin 13.6 g/dL (13.0-16.5); Mean Corp Hgb Conc 33.2 g/dL (32-36); Mean Corpuscular Hgb 28.5 pg (27.0-32.0); Mean Corpuscular Volume 85.8 fL (80-94); Mean Platelet Vol. 9.9 fl (6.2-12.0); Platelet Count 263 K/mm3 (150-450); RBC Distribution Width CV 14.6 % (11.6-14.6); RBC Distribution Width SD 45.3 fl (35.1-43.9); Red Blood Count 4.78 M/mm3 (4.6-6.2); White Blood Count 4.9 K/mm3 (4.4-11.0)
[2023-07-17 07:01] LABS: Anion Gap 3 (5-15); BUN 15 mg/dL (7-18); BUN/Creat Ratio 11.4 RATIO (10-20); Calcium,Total 9.2 mg/dL (8.5-10.1); Chloride 112 mmol/L (98-107); Creatinine, Serum 1.32 mg/dL (0.70-1.30); EST Glomerular Filtration Rate 57 mL/min (>60); Est Glom Filt Rate - Afr Amer 69 mL/min (>60); Glucose 86 mg/dL (74-106); Potassium 4.1 mmol/L (3.5-5.1); Sodium Level 142 mmol/L (136-145)
== END ==
LOC: OLS.ACW100 05:00
PROVIDERS: Visit Provider Family Medicine
DX: G93.41 Metabolic encephalopathy (principal); F10.27 Alcohol dependence with alcohol-induced persisting dementia
CPT/HCPCS: 36415; 80048; 85027

== ENCOUNTER → 2024-03-13 | Outpatient (REF) | payer MEDICARE, MEDICAID, SELFPAY ==
[2024-03-13 10:05] LABS: Hematocrit 40.9 % (40-54); Hemoglobin 14.1 g/dL (13.0-16.5); Mean Corp Hgb Conc 34.5 g/dL (32-36); Mean Corpuscular Hgb 29.4 pg (27.0-32.0); Mean Corpuscular Volume 85.4 fL (80-94); Mean Platelet Vol. 10.6 fl (6.2-12.0); Platelet Count 246 K/mm3 (150-450); RBC Distribution Width CV 13.1 % (11.6-14.6); RBC Distribution Width SD 40.2 fl (35.1-43.9); Red Blood Count 4.79 M/mm3 (4.6-6.2); White Blood Count 5.2 K/mm3 (4.4-11.0)
[2024-03-13 10:45] LABS: ALB/GLOB Ratio 0.6 RATIO (0.9-2.4); AST(SGOT) 19 U/L (15-37); Alanine Aminotransfer ALT/SGPT 25 U/L (16-61); Albumin, Serum 3.3 g/dL (3.2-5.0); Alkaline Phosphatase 77 U/L (45-117); Anion Gap 4 (5-15); BUN 18 mg/dL (7-18); BUN/Creat Ratio 15.9 RATIO (10-20); Calcium,Total 8.9 mg/dL (8.5-10.1); Chloride 107 mmol/L (98-107); Creatinine, Serum 1.13 mg/dL (0.70-1.30); EST Glomerular Filtration Rate 68 mL/min (>60); Est Glom Filt Rate - Afr Amer 82 mL/min (>60); Globulin 5.2 g/dL (2.2-4.2); Glucose 80 mg/dL (74-106); Potassium 3.9 mmol/L (3.5-5.1); Protein, Total 8.5 g/dL (6.4-8.2); Sodium Level 137 mmol/L (136-145)
== END ==
LOC: OLS.ACW100 05:00
PROVIDERS: Visit Provider Family Medicine
DX: Z79.899 Other long term (current) drug therapy (principal); G93.41 Metabolic encephalopathy; F10.27 Alcohol dependence with alcohol-induced persisting dementia; G47.00 Insomnia, unspecified; F17.210 Nicotine dependence, cigarettes, uncomplicated
CPT/HCPCS: 36415; 80053; 85027

== ENCOUNTER → 2024-04-13 | Outpatient (REF) | payer MEDICARE, MEDICAID, SELFPAY ==
[2024-04-13 08:49] LABS: Hematocrit 40.5 % (40-54); Hemoglobin 13.8 g/dL (13.0-16.5); Mean Corp Hgb Conc 34.1 g/dL (32-36); Mean Corpuscular Hgb 28.6 pg (27.0-32.0); Mean Platelet Vol. 10.2 fl (6.2-12.0); Platelet Count 238 K/mm3 (150-450); RBC Distribution Width CV 13.2 % (11.6-14.6); RBC Distribution Width SD 40.9 fl (35.1-43.9); Red Blood Count 4.82 M/mm3 (4.6-6.2); White Blood Count 4.5 K/mm3 (4.4-11.0)
[2024-04-13 09:16] LABS: ALB/GLOB Ratio 0.6 RATIO (0.9-2.4); AST(SGOT) 18 U/L (15-37); Alanine Aminotransfer ALT/SGPT 18 U/L (16-61); Albumin, Serum 3.3 g/dL (3.2-5.0); Alkaline Phosphatase 83 U/L (45-117); Anion Gap 3 (5-15); BUN 14 mg/dL (7-18); BUN/Creat Ratio 12.8 RATIO (10-20); Calcium,Total 8.9 mg/dL (8.5-10.1); Chloride 108 mmol/L (98-107); Cholesterol 141 mg/dL (200); Creatinine, Serum 1.09 mg/dL (0.70-1.30); EST Glomerular Filtration Rate 71 mL/min (>60); Est Glom Filt Rate - Afr Amer 85 mL/min (>60); Globulin 5.1 g/dL (2.2-4.2); Glucose 81 mg/dL (74-106); High Density Lipoprotein 39 mg/dL; Potassium 4.1 mmol/L (3.5-5.1); Protein, Total 8.4 g/dL (6.4-8.2); Sodium Level 137 mmol/L (136-145); Triglycerides 130 mg/dL; Very Low Density Lipoprotein 26 mg/dL (5-40)
== END ==
LOC: OLS.ACW300 05:00
PROVIDERS: Visit Provider Family Medicine
DX: G93.41 Metabolic encephalopathy (principal); F10.27 Alcohol dependence with alcohol-induced persisting dementia; F05 Delirium due to known physiological condition; G47.00 Insomnia, unspecified; F17.210 Nicotine dependence, cigarettes, uncomplicated; Z79.899 Other long term (current) drug therapy
CPT/HCPCS: 36415; 80053; 80061; 85027

== ENCOUNTER → 2024-09-11 | Outpatient (REF) | payer MEDICARE, MEDICAID, SELFPAY ==
[2024-09-11 08:50] LABS: Hematocrit 36.9 % (40-54); Hemoglobin 12.7 g/dL (13.0-16.5); Mean Corp Hgb Conc 34.4 g/dL (32-36); Mean Corpuscular Hgb 28.7 pg (27.0-32.0); Mean Corpuscular Volume 83.5 fL (80-94); Mean Platelet Vol. 10.2 fl (6.2-12.0); Platelet Count 226 K/mm3 (150-450); RBC Distribution Width CV 13.2 % (11.6-14.6); RBC Distribution Width SD 39.8 fl (35.1-43.9); Red Blood Count 4.42 M/mm3 (4.6-6.2); White Blood Count 4.4 K/mm3 (4.4-11.0)
[2024-09-11 09:11] LABS: ALB/GLOB Ratio 0.8 RATIO (0.9-2.4); AST(SGOT) 21 U/L (<=37); Alanine Aminotransfer ALT/SGPT 12 U/L (<=46); Albumin, Serum 3.7 g/dL (3.4-4.8); Alkaline Phosphatase 88 U/L (40-129); Anion Gap 10 (5-15); BUN 10 mg/dL (4-19); Calcium,Total 8.9 mg/dL (7.6-11.0); Carbon Dioxide 23.1 mmol/L (21.0-32.0); Chloride 104 mmol/L (98-108); Creatinine, Serum 1.12 mg/dL (0.70-1.20); EST Glomerular Filtration Rate 70 (>60); Globulin 4.6 g/dL (2.2-4.2); Glucose 76 mg/dL (70-99); Potassium 4.1 mmol/L (3.3-5.1); Protein, Total 8.3 g/dL (5.9-8.4); Sodium Level 137 mmol/L (133-145); Total Bilirubin 0.54 mg/dL (0.00-1.30)
== END ==
LOC: OLS.ACW200 05:00
PROVIDERS: Visit Provider Family Medicine
DX: Z79.899 Other long term (current) drug therapy (principal); G93.41 Metabolic encephalopathy; F05 Delirium due to known physiological condition; G47.00 Insomnia, unspecified; F17.210 Nicotine dependence, cigarettes, uncomplicated
CPT/HCPCS: 36415; 80053; 85027

== ENCOUNTER → 2024-10-26 05:00 | Outpatient (REF) | payer MEDICARE, MEDICAID, SELFPAY ==
--- OUTSIDE RECORDS SUMMARY | 2024-10-26 04:25 | XMS RPT_ITS | CCD ---
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 [facility] Care Team Providers Care Slag Dumper Name Role Phone WALKER LONGO Unavailable Unavailable WALKER LONGO Unavailable Unavailable NIDIA GARCIA Unavailable Unavailable Unavailable Primary Care Provider UnavailSIERRA Downey Referring Unavailable SIERRA HAY Admitting Unavailable NEDRA WHITE Unavailable NICKIE FAGAN Attending Unavailable Yo Thompson Attending Unavailable Yo Thompson Attending Unavailable Yo Thompson Attending Unavailable Allergies Allergy Classification Reported Allergen(s) Allergy Type Date of Onset Reaction(s) Facility (1 source) aminolevulinic acid Drug Allergy [facility] Repository (1 source) rescinnamine Drug Allergy [facility] Repository Medications Current Medications Medication Drug [...] to 10 days. 0 07/02/2023 07/12/2023 Active Start: 06-30-2023 End: 07-02-2023 take 1 tablet by mouth every six hours a s needed for headache ibuprofen tablet 600 mg Start: 06-29-2023 End: 06-30-2023 ibuprofen tablet 400 mg Start: 06-28-2023 End: 06-28-2023 ibuprofen tablet 800 mg Start: 06-28-2023 End: 06-28-2023 ibuprofen tablet 800 mg Start: 06-26-2023 End: 06-26-2023 ibuprofen tablet 800 mg lidocaine 0.04 mg/mg medicated patch (6 sources) Antiarrhythmic, Amide Local Anesthetic Start: 06-25-2023 End: 07-02-2023 apply 1 dose transdermal route once daily as needed Lidocaine 4 % patch Place 1 patch on the skin Daily as needed (neck / head ache). 0 07/02/2023 Active Start: 06-17-2023 End: 06-17-2023 lidocaine PF (Xylocaine) 1 % injection melatonin 5 mg oral tablet (8 sources) Start: 07-02-2023 take 1 tablet by mouth once daily melatonin 5 MG tablet Take 1 tablet (5 mg) by mouth Nightly. 0 07/02/2023 Active Start: 07-01-2023 End: 07-01-2023 melatonin tablet 5 mg Start: 07-01-2023 End: 07-01-2023 melatonin tablet 5 mg Start: 06-17-2023 End: 07-01-2023 melatonin tablet 3 mg Start: 06-15-2023 End: 07-02-2023 melatonin tablet 5 mg sodium chloride 0.111 meq/ml nasal solution (4 sources) Start: 06-15-2023 End: 07-02-2023 sodium chloride (Seward) 0.65 % nasal spray Administer 1 spray into each nostril every 4 hours as needed for congestion. 0 07/02/2023 Active Completed/Discontinued Medications Medication Drug Class(es) Dates Sig (Normalized) Sig (Original) acetaminophen 325 mg oral tablet (6 sources) Start: 06-23-2023 End: 06-28-2023 acetaminophen (Tylenol) tablet 650 mg Start: 06-22-2023 End: 06-28-2023 acetaminophen (Tylenol) tabl et 1,000 mg Start: 06-15-2023 End: 06-21-2023 take 1 tablet by mouth every six hours as needed for pain acetaminophen (Tylenol) tablet 650 mg acetaminophen 500 mg / caffeine 65 mg oral tablet (2 sources) Central Nervous System Stimulant, Methylxanthine Start: 07-01-2023 End: 07-01-2023 Acetaminophen-Caffeine (Excedrin Tension Headache) 1 tablet acyclovir (Zovirax) 500 mg in sodium chloride 0.9 % 100 mL IVPB (2 sources) Start: 06-16-2023 End: 06-18-2023 acyclovir (Zovirax) 500 mg in sodium chloride 0.9 % 100 mL IVPB gadobutrol (Gadavist) injection 5 mL (2 sources) Start: 06-15-2023 End: 06-15-2023 gadobutrol (Gadavist) injection 5 mL metoclopramide 10 mg oral tablet (2 sources) Dopamine-2 Receptor Antagonist Start: 06-26-2023 End: 06-26-2023 metoclopramide (Reglan) tablet 10 mg mirtazapine 15 mg oral tablet (2 sources) Start: 06-27-2023 End: 06-27-2023 mirtazapine (Remeron) tablet 7.5 mg QUEtiapine 25 mg oral tablet (2 sources) Atypical Antipsychotic Start: 07-02-2023 End: 07-02-2023 QUEtiapine (SEROquel) tablet 25 mg Start: 07-02-2023 End: 07-02-2023 QUEtiapine (SEROquel) tablet 25 mg thiamine 100 mg oral tablet (4 sources) Start: 06-25-2023 End: 07-02-2023 thiamine (Vitamin B1) tablet 100 mg Start: 06-21-2023 End: 06-21-2023 thiamine (Vitamin B1) tablet 100 mg thiamine (Vitamin B1) 250 mg in sodium chloride 0.9 % 100 mL IVPB (2 sources) Start: 06-15-2023 End: 06-17-2023 thiamine (Vitamin B1) 250 mg in sodium chloride 0.9 % 100 mL IVPB traZODone hydrochloride 50 mg oral tablet (4 sources) Serotonin Reuptake Inhibitor Start: 07-02-2023 End: 07-02-2023 traZODone (Desyrel) tablet 50 mg Start: 07-02-2023 End: 07-02-2023 traZODone (Desyrel) tablet 5 0 mg Start: 07-02-2023 End: 08-01-2023 take 1 tablet by mouth once daily traZODone (Desyrel) 50 MG tablet Take 1 tablet (50 mg) by mouth Nightly. 0 07/02/2023 08/01/2023 Active Problems Problem Classification Problem Date Documented Date Episodic/Chronic Alcohol-related disorders (5 sources) History of alcohol abuse; Translations: [Alcohol abuse, in remission] Onset: 06-15-2023 06-15-2023 Chronic Delirium, dementia, and amnestic and other cognitive disorders (1 source) Delirium due to known physiological condition; Translations: [Delirium due to known physiological condition] Onset: 10-09-2024 Chronic Headache, including migraine (1 source) Headache; Translations: [HEADACHE] Onset: 01-10-2018 Episodic Malaise and fatigue (4 sources) Asthenia; Translations: [Other malaise] Onset: 06-15-2023 06-15-2023 Episodic Other nervous system disorders (4 sources) Metabolic encephalopathy; Translations: [Metabolic encephalopathy] Onset: 06-15-2023 06-15-2023 Chronic Other nervous system disorders (1 source) Metabolic encephalopathy; Translations: [Metabolic encephalopathy] Onset: 10-09-2024 Chronic Other nervous system disorders (6 sources) [...] unspecified; Translations: [Disorientation, unspecified] Onset: 06-13-2023 Episodic Residual codes; unclassified (1 source) Insomnia, unspecified; Translations: [Insomnia, unspecified] Onset: 10-09-2024 Episodic Substance-related disorders (2 sources) Nicotine dependence, unspecified, uncomplicated; Translations: [Nicotine dependence, cigarettes, uncomplicated] Onset: 01-10-2018 Chronic Results Test Name Value Interpretation Reference Range Facility Basophil percentageOrdered B y: Yo Cobos on 07-17-2023 Chloride [Moles/Vol] 112 mmol/L 98-107 [facility] Glucose [Mass/Vol] 86 mg/dL 74-106 [facility] Hemoglobin (Bld) [Mass/Vol] 13.6 g/dL 13.0-16.5 [facility] Potassium [Moles/Vol] 4.1 mmol/L 3.5-5.1 [facility] Sodium [Moles/Vol] 142 mmol/L 136-145 [facility] WBC (Bld) [#/Vol] 4.9 10*3/uL 4.4-11.0 [facility] Determination of erythrocyte mean corpuscular volume (MCV)Ordered By: Yo Cobos on 07-17-2023 MCV (RBC) [Entitic vol] 85.8 fL 80-[address] [facility] Erythrocyte distribution wid th ratioOrdered By: Yo Cobos on 07-17-2023 Erythrocyte distribution width (RBC) [Ratio] 14.6 % 11.6-14.6 [facility] Erythrocyte distribution wid th standard deviationOrdered By: Yo Cobos on 07-17-2023 Erythrocyte distribution width (RBC) [Entitic vol] 45.3 fL 35.1-43.9 [facility] Hematocrit Auto (Bld) [Volum e fraction]Ordered By: Yo Cobos on 07-17-2023 Hematocrit (Bld) [Volume fraction] 41.0 % 40-54 [facility] Laboratory - Chemistry and C hemistry - challengeOrdered By: Yo Cobos on 07-17-2023 CO2 [Moles/Vol] 27.0 mmol/L 21.0-32.0 [facility] Urea nitrogen/Creatinine [Mass ratio] 11.4 mg/mg 10-20 [facility] Laboratory - Hematology and Cell countsOrdered By: Yo Cobos on 07-17-2023 MCH (RBC) [Entitic mass] 28.5 pg 27.0-32.0 [facility] MCHC (RBC) [Mass/Vol] 33.2 g/dL 32-36 [facility] Platelet mean volume (Bld) [Entitic vol] 9.9 fL 6.2-12.0 [facility] Platelets (Bld) [#/Vol] 263 10*3/uL 150-450 [facility] No Panel InformationOrdered By: Yo Cobos on 07-17-2023 Estimated GFR (MDRD) Amer 69 mL/min >60 [facility] Comment on above: GFR Calc Estimated GFR (MDRD) Non-Af Amer 57 mL/min >60 [facility] Comment on above: Non- GFR Calc RBC Auto (Bld) [#/Vol]Ordere d By: Yo Cobos on 07-17-2023 RBC (Bld) [#/Vol] 4.78 10*6/uL 4.6-6.2 [facility] Serum or plasma calcium arminda urement (mass/volume)Ordered By: Yo Cobos on 07-17-2023 Calcium [Mass/Vol] 9.2 mg/dL 8.5-10.1 [facility] Serum or plasma creatinine m easurement (mass/volume)Ordered By: Yo Cobos on 07-17-2023 Creatinine [Mass/Vol] 1.32 mg/dL 0.70-1.30 [facility] Comment on above: The validity of the calculated GFR & GFRAA in patients over 70 years has not been determined. Clinical correlation is essential. Serum or plasma urea nitroge n measurement (mass/volume)Ordered By: Yo Cobos on 07-17-2023 Urea nitrogen [Mass/Vol] 15 mg/dL 7-18 [facility] Thin prep Papanicolaou smear with manual screeningOrdered By: Yo Cobos on 07-17-2023 Thin prep Papanicolaou smear with manual screening 3 5-15 [facility] Basophil percentageOrdered B y: Yo Cobos on 07-03-2023 Bilirubin [Mass/Vol] 0.50 mg/dL 0.20-1.00 [facility] Comment on above: For patients on eltr ombopag therapy, use of Dimension [place] TBIL is not recommended. Chloride [Moles/Vol] 109 mmol/L 98-107 [facility] Cholesterol [Mass/Vol] 142 mg/dL <200 [facility] Comment on above: <200 mg/dL Desirable 200-240 mg/dL Borderline >240 mg/dL High Risk Glucose [Mass/Vol] 85 mg/dL 74-106 [facility] Hemoglobin (Bld) [Mass/Vol] 13.5 g/dL 13.0-16.5 [facility] Potassium [Moles/Vol] 4.2 mmol/L 3.5-5.1 [facility] Protein [Mass/Vol] 8.0 g/dL 6.4-8.2 [facility] Sodium [Moles/Vol] 139 mmol/L 136-145 [facility] Triglyceride [Mass/Vol] 145 mg/dL <[address] [facility] Comment on above: The drugs N-Acetylcy steine and Metamizole may falsely depress this assay.Serum Triglycerides Reference Interval Normal <150 mg/dL Borderline high 150 - 199 mg/dL High 200 - 499 mg/dL Very High > or = 500 mg/dL WBC (Bld) [#/Vol] 3.4 10*3/uL 4.4-11.0 [facility] CARECOORDon 07-03-2023 [facility] Patient Choice Patient Name: CORY MUELLER Date of : 1950 [facility] Determination of erythrocyte mean corpuscular volume (MCV)Ordered By: Yo Cobos on 07-03-2023 MCV (RBC) [Entitic vol] 86.6 fL 80-94 [facility] Erythrocyte distribution wid th ratioOrdered By: Yo Cobos on 07-03-2023 Erythrocyte distribution width (RBC) [Ratio] 14.5 % 11.6-14.6 [facility] Erythrocyte distribution wid th standard deviationOrdered By: Yo Cboos on 07-03-2023 Erythrocyte distribution width (RBC) [Entitic vol] 46.0 fL 35.1-43.9 [facility] Hematocrit Auto (Bld) [Volum e fraction]Ordered By: Yo Cobos on 07-03-2023 Hematocrit (Bld) [Volume fraction] 40.8 % 40-54 [facility] Laboratory - Chemistry and C hemistry - challengeOrdered By: Yo Cobos on 07-03-2023 Albumin/Globulin [Mass ratio] 0.7 {ratio} 0.9-2.4 [facility] ALP [Catalytic activity/Vol] 81 U/L 45-117 [facility] ALT [Catalytic activity/Vol] 35 U/L 16-61 [facility] Cholesterol in HDL [Mass/Vol] 42 mg/dL >40 [facility] Comment on above: The drugs N-Acetylcy steine and Metamizole may falsely depress this assay. Reference Range HDL <40 mg/dL Low HDL Cholesterol HDL >or= 60 mg/dL High HDL Cholesterol Cholesterol in LDL [Mass/Vol] 71 mg/dL 0-130 [facility] CO2 [Moles/Vol] 27.0 mmol/L 21.0-32.0 [facility] Globulin (S) [Mass/Vol] 4.7 g/dL 2.2-4.2 [facility] Magnesium [Mass/Vol] 2.3 mg/dL 1.6-2.6 [facility] Urea nitrogen/Creatinine [Mass ratio] 20.6 mg/mg 10-20 [facility] Laboratory - Hematology and Cell countsOrdered By: Yo Cobos on 07-03-2023 MCH (RBC) [Entitic mass] 28.7 pg 27.0-32.0 [facility] MCHC (RBC) [Mass/Vol] 33.1 g/dL 32-36 [facility] Platelet mean volume (Bld) [Entitic vol] 10.5 fL 6.2-12.0 [facility] Platelets (Bld) [#/Vol] 242 10*3/uL 150-450 [facility] No Panel InformationOrdered By: Yo Cobos on 07-03-2023 Estimated GFR (MDRD) Amer 98 mL/min >60 [facility] Comment on above: GFR Calc Estimated GFR (MDRD) Non-Af Amer 81 mL/min >60 [facility] Comment on above: Non- GFR Calc Vitamin D 25-Hydroxy 27.0 ng/mL [facility] Comment on above: Vitamin D 25(OH) Sta tus Range Deficiency <20 ng/mL (50nmol/L) Insufficiency 20 - 30 ng/mL (50 - 75 nmol/L) Sufficiency 30 - 100 ng/mL (75 - 250 nmol/L) Toxicity >100 ng/mL (>250 nmol/L) VLDL Cholesterol 29 mg/dL 5-40 [facility] RBC Auto (Bld) [#/Vol]Ordere d By: Yo Cobos on 07-03-2023 RBC (Bld) [#/Vol] 4.71 10*6/uL 4.6-6.2 [facility] Serum or plasma calcium arminda urement (mass/volume)Ordered By: Yo Cobos on 07-03-2023 Calcium [Mass/Vol] 9.0 mg/dL 8.5-10.1 [facility] Serum or plasma creatinine m easurement (mass/volume)Ordered By: Yo Cobos on 07-03-2023 Creatinine [Mass/Vol] 0.97 mg/dL 0.70-1.30 [facility] Comment on above: The validity of the calculated GFR & GFRAA in patients over 70 years has not been determined. Clinical correlation is essential. Serum or plasma thyroid stim ulating hormone (TSH) measurement (units/volume)Ordered By: Yo Cobos on 07-03-2023 TSH Qn 1.47 uIU/mL 0.358-3.74 [facility] Serum or plasma urea nitroge n measurement (mass/volume)Ordered By: Yo Cobos on 07-03-2023 Urea nitrogen [Mass/Vol] 20 mg/dL 7-18 [facility] Serum or plasma uric acid me asurement (mass/volume)Ordered By: Yo Cobos on 07-03-2023 Urate [Mass/Vol] 5.5 mg/dL 3.5-7.2 [facility] Comment on above: The drugs N-Acetylcy steine and Metamizole may falsely depress this assay. Thin prep Papanicolaou smear with manual screeningOrdered By: Yo Cobos on 07-03-2023 Thin prep Papanicolaou smear with manual screening 3.3 g/dL 3.2-5.0 [facility] Thin prep Papanicolaou smear with manual screening 19 U/L 15-37 [facility] Thin prep Papanicolaou smear with manual screening 3 5-15 [facility] Whole blood hemoglobin A1c/t otal hemoglobin ratio (mass fraction)Ordered By: Yo Cobos on 07-03-2023 HbA1c (Bld) [Mass fraction] 5.7 % 3.8-5.6 [facility] Comment on above: Normal < 5.7 % Predi abetic 5.7 - 6.4 % Diabetic >or= 6.5 % Please note range changes. CARECOORDon 07-02-2023 CARECOORD Next Site of Care Admission Date: 06/13/2023 09:56 PM Patient Name: CORY MUELLER Location: [address] Date of : 1950 Placement Information Referral Type:Senior Care/SNF - New Referral ID:[id number] Provider Name:Jc Address 1:[address] Address 2: City:[place] Selection Factors:Patient/Fami ly Choice State:[place] [facility] CARECOORD Requested to arrange transport to [facility]. 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 Used cot due to delirium on admission, became disoriented at [facility] , cognitive impairment, lacks capacity to make medical decisions, headache of unknown etiology. Updated Ex -Violeta RN, Arc Trimmer, [facility] and TCC. Violeta to contact the building analyst/supervisor where patient lives to check on rent payments. She will also arrange to take some belongs to the facility. CASE MAKING MACHINE OPERATOR suggested she work with the Blocker And Polisher at the facility regarding future plans of returning home. Will make a Direction Home referral for home assist and potential future Assisted Living. [facility] CARECOORD [id number] was entered into [employer] for the [facility]. Discharge med list transmitted to [facility] per [facility] request[facility] Progress Noteon 07-02-2023 Progress Note Discharge instructions printed and placed in packet. Patient has no IV. Report called to [facility]. Transport scheduled to come around 1500. [facility] Progress Note Attestation signed by Nickie Fagan DO at 07/02/2023 4:22 PM I saw and evaluated the patient. I agree with the findings and plan of care as documented in the resident's note, except as noted in Green text. Patient seen and examined personally (Date of Sevice: 07/02/23) -d/w TCC -reviewed w/pt plan for discharge to SNF today 7AM-5PM: contact resident on [facility] Med A (find by hovering over attending's name on left side of patient's chart) 5PM-7AM: contact [email or web address] res Med Team Progress Note Cory Mueller [...] Patient Position: Lying) Pulse 70 Temp 36.4 ?C (97.6 ?F) (Temporal) Resp 12 Ht 5' 11 (1.803 m) Comment: per chart, pt est 6' Wt 144 lb (65.3 kg) SpO2 96% BMI 20.08 kg/m? Physical Exam Vitals reviewed. Constitutional: Appearance: Normal [...] past few days - LP performed 06/17. Meningitis/encephali tis PCR negative. Spinal fluids studies show no [...] adequate sleep hygiene - Limit light disturbance (more content not included)... Normal [facility] CARECOORDon 07-01-2023 CARECOORD Chart reviewed. Spoke to patient at bedside re: info that both [facility] and [facility] are able to accept. Patient stated he would prefer [facility]. Facility notified to start auth. [facility] Progress Noteon 07-01-2023 Progress Note Was paged by nursing regarding patient's headache. [...] plan. 1 x dose of excedrin ordered. [facility] Progress Note Attestation signed by Nickie Fagan DO at 07/01/2023 4:59 PM (Updated) I saw and evaluated the patient. I agree with the findings and plan of care as documented in the resident's note, except as noted in Green text. Patient seen and examined personally during bedside teaching rounds (Date of Service: 07/01/23) -reviewed w/him possible SNF facilities. He communicates just wants to be somewhere in [place]. Though he does not have decisional capacity regarding is ability to safely live independently in community I do think we should continue to consider his preferences regarding SNF. -D/W TCC 7AM-5PM: contact resident on [facility] Med A (find by hovering over attending's name on left side of patient's chart) 5PM-7AM: contact AI3 res Med Team Progress Note Cory Mueller : 1950(72 y.o.) Date: July 01, 2023 Med Team: A Attending: Dr. Fagan [...] Patient Position: Lying) Pulse 67 Temp 36.7 ?C (98.1 ?F) (Temporal) Resp 20 Ht 5' 11 (1.803 m) Comment: per chart, pt est 6' Wt 144 lb (65.3 kg) SpO2 96% BMI 20.08 kg/m? Physical Exam Vitals reviewed. Constitutional: Appearance: Normal [...] past few days - LP performed 06/17. Meningitis/encephali tis PCR negative. Spinal fluids studies show no [...] refractory to melatonin and sleep hygiene - (more content not included)... Normal [facility] Progress Note Patient has had trouble sleeping since admission, [...] of Melatonin was given. Naomy Morse RN [facility] IDNon 06-30-2023 IDN Problem: Safety - Adult Goal: Free from fall injury Outcome: Adequate for Discharge Problem: Discharge Planning Goal: Discharge to home or other facility with appropriate resources Outcome: Adequate for Discharge [facility] Progress Noteon 06-30-2023 Progress Note Nutrition update completed. Chart reviewed. Patient to be monitored and followed by the diet rf technician. Normal [facility] Progress Note Attestation signed by Nickie Fagan DO at 06/30/2023 12:56 PM I saw and evaluated the patient. I agree with the findings and plan of care as documented in the resident's note, except as noted in Green text. Patient seen and examined personally during bedside teaching rounds (Date of Service: 06/30/23) -no new complaints. 7AM-5PM: contact resident on [facility] Med A (find by hovering over attending's name on left side of patient's chart) 5PM-7AM: contact AI3 res Med Team Progress Note Cory Mueller : 1950(72 y.o.) Date: June 30, 2023 Med Team: Rasta Attending: Dr. Fagan Chief Complaint: confusion and decreased memory Subjective: Overnight events: PORSCHEEON Patient seen this morning mentioned continued bilateral [...] 89 (06/30/23721) Arterial BP MAP Temp 36.2 ?C (97.2 ?F) (06/30/23721) Pulse 61 (06/30/23721) Resp 20 (06/30/23721) SpO2 97 % (06/30/23721) Weight 144 lb (65.3 kg) (06/17/23 1000) BMI Body mass index is 20.08 kg/m?. Oxygen Delivery: Physical Exam Vitals reviewed. Constitutional: [...] band-like pressure, stable - LP performed 06/17. Meningitis/encephali tis PCR negative. Spinal fluids studies show no [...] admission to [facility] pending acceptance to SNF at (more content not included)... Normal [facility] Progress Noteon 06-29-2023 Progress Note Attestation signed by Nickie Fagan DO at 06/29/2023 1:29 PM I saw and evaluated the patient. I agree with the findings and plan of care as documented in the resident's note, except as noted in Green text. Patient seen and examined personally during bedside teaching rounds (Date of Service: 06/29/23) -no new complaints 7AM-5PM: contact resident on [facility] Med A (find by hovering over attending's name on left side of patient's chart) 5PM-7AM: contact AI3 res Med Team Progress Note Cory Mueller : 1950(72 y.o.) Date: June 29, 2023 Med Team: A Attending: Dr. Fagan Chief Complaint: confusion and decreased memory Subjective: Overnight events: RAQUEL Patient seen this morning mentioned continued bilateral [...] 113 (06/29/23716) Arterial BP MAP Temp 36.7 ?C (98 ?F) (06/29/23716) Pulse 71 (06/29/23716) Resp 20 (06/29/23716) SpO2 97 % (06/29/23716) Weight 144 lb (65.3 kg) (06/17/23 1000) BMI Body mass index is 20.08 kg/m?. Oxygen Delivery: Physical Exam Vitals reviewed. Constitutional: [...] past few days - LP performed 06/17. Meningitis/encephali tis PCR negative. Spinal fluids studies show no abnormalities. - CTH without contrast 06/13/2023 with no evidence acute ICH - Concern for rebound headache secondary to chronic tylenol use, discontinued with no signs of worsened COLLIER - Lidocaine patch daily Debility - PT recommending home independently - OT recommending 24 hour supervision or assist - Currently working on arranging safe home going plain with [facility], SW, and geriatrics team - Currently pending placement. Assistance appreciated by CM and attending. Will continue to monitor Insomnia - Experienced episode of insomnia on 06/27/23 refractory to sleep hygiene and melatonin - Received 1 (more content not included)... [facility] CARECOORDon 06-28-2023 CARECOORD Received responses in [facility] and [place] are not able to accept. Spoke to patient at bedside and reviewed list. He would like referrals to [facility], [facility] and [facility]. [facility] tasked to place referrals. [facility] Progress Noteon 06-28-2023 Progress Note Attestation signed by Nickie Fagan DO at 06/28/2023 5:52 PM I saw and evaluated the patient. I agree with the findings and plan of care as documented in the resident's note, except as noted in Green text. Patient seen and examined personally during bedside teaching rounds (Date of Service: 06/28/23) 7AM-5PM: contact resident on [facility] Med A (find by hovering over attending's name on left side of patient's chart) 5PM-7AM: contact 3 res Med Team Progress Note Cory Mueller : 1950(72 y.o.) Date: June 28, 2023 Med Team: A Attending: Dr. Fagan Chief Complaint: Confusion and decreased memory Subjective: - No acute events overnight. - Currently, patient is resting comfortably in bed. Denies recollection of selecting possible placement for SNF yesterday but seems satisfied with staying close to the [facility]. Patient continues to endorse a [...] Patient Position: Lying) Pulse 69 Temp 36.8 ?C (98.2 ?F) (Temporal) Resp 20 Ht 5' 11 (1.803 m) Comment: per chart, pt est 6' Wt 144 lb (65.3 kg) SpO2 96% BMI 20.08 kg/m? Physical Exam Constitutional: General: [...] past few days - LP performed 06/17. Meningitis/encephali tis PCR negative. Spinal fluids studies show no [...] sleep hygiene and melatonin - Received 1 d (more content not included)... [facility] CARECOORD 06-27-2023 [facility] Provided patient at bedside a choice list. Discussed with patient need for facility with special care for patients with forgetfulness. He agreed and stated that he would prefer to go to a facility in the [place]. We reviewed the list and he would like referrals to [place], [facility] and [facility]. [facility] tasked to place referrals. [facility] PENG PICKARD left with ex-, HCAYO Mcdaniel to discuss facility choices for placement. [facility] Progress Noteon 06-27-2023 Progress Note Attestation signed by Nickie Fagan DO at 06/27/2023 4:48 PM I saw and evaluated the patient. I agree with the findings and plan of care as documented in the resident's note, except as noted in Green text. Patient seen and examined personally (Date of Sevice: 06/27/23) -d/w TCC and Dr. White -pt w/no new complaints. Expressed to me interested in facility in [facility]. List at bedside. Though pt has been found to lack capacity for discharge decisions especially in level of care needed I do think we should consider his desire to remain in [facility]. 7AM-5PM: contact resident on [facility] Med A (find by hovering over attending's name on left side of patient's chart) 5PM-7AM: contact 3 res Med Team Progress Note Cory Mueller : 1950(72 y.o.) Date: June 27, 2023 Med Team: Rasta Attending: Dr. Fagan [...] Patient Position: Sitting) Pulse 80 Temp 36.4 ?C (97.6 ?F) (Temporal) Resp 20 Ht 5' 11 (1.803 m) Comment: per chart, pt est 6' Wt 144 lb (65.3 kg) SpO2 99% BMI 20.08 kg/m? Physical Exam Constitutional: General: [...] past few days - LP performed 06/17. Meningitis/encephali tis PCR negative. Spinal fluids studies show no [...] Currently pending placement for SNF with POA assisti (more content not included)... Normal [facility] CARECOORDon 06-26-2023 CARECOORD Left VM this AM to ex- and HCPOA to discuss discuss discharge planning. [facility] Progress Noteon 06-26-2023 Progress Note Attestation signed by Nickie Fagan DO at 06/26/2023 3:03 PM I saw and evaluated the patient. I agree with the findings and plan of care as documented in the resident's note, except as noted in Green text. Patient seen and examined personally during bedside teaching rounds (Date of Service: 06/26/23) -ongoing tension type COLLIER. Agree w/trial COLLIER cocktail to see if can improve symptoms 7AM-5PM: contact resident on [facility] Med A (find by hovering over attending's [...] Patient Position: Lying) Pulse 65 Temp 36.4 ?C (97.5 ?F) (Temporal) Resp 20 Ht 5' 11 (1.803 m) Comment: per chart, pt est 6' Wt 144 lb (65.3 kg) SpO2 93% BMI 20.08 kg/m? Physical Exam Constitutional: General: [...] past few days - LP performed 06/17. Meningitis/encephali tis PCR negative. Spinal fluids studies show no [...] for SNF with POA assisting with process (more content not included)... Normal [facility] CARECOORDon 06-25-2023 CARECOORD Spoke to patient at bedside to discuss [...] Violeta to discuss. notified of this conversation. [facility] Progress Noteon 06-25-2023 Progress Note Nutrition update completed. Chart reviewed. Patient to be monitored and followed by the diet rf technician. Normal [facility] Progress Note Attestation signed by Nickie Fagan DO at 06/25/2023 6:21 PM I saw and evaluated the patient. I agree with the findings and plan of care as documented in the resident's note, except as noted in Green text. Patient seen and examined personally (Date of Sevice: 06/25/23) 7AM-5PM: contact resident on [facility] Med A (find by hovering over attending's [...] Patient Position: Sitting) Pulse 76 Temp 36.4 ?C (97.5 ?F) (Temporal) Resp 18 Ht 5' 11 (1.803 m) Comment: per chart, pt est 6' Wt 144 lb (65.3 kg) SpO2 95% BMI 20.08 kg/m? Physical Exam Constitutional: General: [...] past few days - LP performed 06/17. Meningitis/encephali tis PCR negative. Spinal fluids studies show no [...] with decision making. - Goals of Care: F (more content not included)... [facility] CARECOORDon 06-24-2023 CAREIRVING Met with patient. He stated he still wanted to name his ex -Violeta Mueller as his HCPOA. Patient completed paperwork with my assistance and explanation of what wording means on the form. Will make copies for patient's chart and provide him the original and copy for Violeta . Will follow. [facility] CARECOORD Chart reviewed. Patient is medically stable for [...] will follow patient if discharges home for [facility]. SW and TCC to continue to follow. [facility] Progress Noteon 06-24-2023 Progress Note Attestation with edits by Nickie Fagan DO at 06/24/2023 5:30 PM I saw and evaluated the patient. I [...] in apt alone. 7AM-5PM: contact resident on [facility] Med A (find by hovering over attending's name on left side of patient's chart) 5PM-7AM: contact AI2 res Med Team Progress Note Cory Perla Julien : 1950(72 y.o.) Date: June 24, 2023 [...] Objective: BP 126/71 Pulse 69 Temp 36.8 ?C (98.3 ?F) (Temporal) Resp 20 Ht 5' 11 (1.803 m) Comment: per chart, pt est 6' Wt 144 lb (65.3 kg) SpO2 96% BMI 20.08 kg/m? Physical Exam Constitutional: General: [...] past few days - LP performed 06/17. Meningitis/encephali tis PCR negative. Spinal fluids studies show no [...] team - Goals of Care: FULL CODE (more content not included)... Normal [facility] IDNon 06-22-2023 IDN The patient is Moderately Stable - Low risk of patient condition declining or worsening The patient's goals for the shift include remain safe The clinical goals for the shift include remain safe Problem: Safety - Adult Goal: Free from fall injury Outcome: Progressing Problem: Discharge Planning Goal: Discharge to home or other facility with appropriate resources Outcome: Progressing Normal [facility] Bacteria identified Aer cx N om (Unsp spec)Ordered By: Neville Rosa on 06-21-2023 Gram Stain Result No polymorphonuclear leukocytes seen [facility] Gram Stain Result No organisms seen [facility] CARECOORDon 06-21-2023 CARECOORD Contacted ex -Violeta Mueller regarding agreeing to be patient's HCPOA if patient still wanted to name her. She is willing although unwilling to apply for Guardianship. She is also unable to provide ongoing supervision and assistance to patient if returns to his apartment. She doubts patient would agree to ecf placement. Violeta reports patient does have a vgq-[id number]-oyf lives with patient's sister- Gabriela although they do not get along, have not seen each other for a year and patient denies Sandro is his son. Will ask patient if wants to name Violeta as his HCPOA and if so can assist with paperwork. Will follow. [facility] Laboratory - Microbiology an d Antimicrobial susceptibilityon 06-21-2023 West Nile virus [facility] ([facility] Comment on above: INTERPRETIVE INFORMA TION: West Nile Virus Ab IgM by DARNELL, CSF 0.89 IV or less ...... Negative - No significant level of West Nile virus IgM antibody detected. 0.90-1.10 IV ......... Equivocal - Questionable presence of West Nile virus IgM antibody detected. Repeat testing in 10-14 days may be helpful. 1.11 IV or greater ... Positive - Presence of IgM antibody to West Nile virus detected, suggestive of current or recent infection. This test is intended to be used as a semi-quantitative means of detecting West Nile virus-specific IgM in CSF samples in which there is a clinical suspicion of West Nile virus infection. This test should not be used solely for quantitative purposes, nor should the results be used without correlation to clinical history or other data. Because other members of the Flaviviridae family, such as [place] encephalitis virus, show extensive cross-reactivity with West Nile virus, serologic testing specific for these species should be considered. The detection of antibodies to West Nile virus in cerebrospinal fluid may indicate central nervous system infection. However, consideration must be given to possible contamination by blood or transfer of serum antibodies across the blood-brain barrier. This test was developed and its performance characteristics determined by [facility]. It has not been cleared or approved by the US Food and Drug Administration. This test was performed in a CLIA certified laboratory and is intended for clinical purposes. Performed By: [facility] [address] [place] [id number] Industrial Maintenance Manager: Dany Mcmahan MD, PhD CLIA Number: [id number] Laboratory - Microbiology an d Antimicrobial susceptibilityOrdered By: Neville Rosa on 06-21-2023 Bacteria identified Aer cx Nom (Unsp spec) No growth at 4 days [facility] No Panel Informationon 06-21 [facility] [id number] 06-20-2023 [id number] Stockroom Worker following case for Discharge Needs. Normal [facility] CARECOORDon 06-20-[address] Fagan in office today. She stated that [facility] would likely be able to follow patient in the community until a PCP can be established through home visits. Adam Mcguire, tasked in careport with this information so that patient can have HHC at discharge. I placed calls to multiple home visit companies: -[facility] at [phone] -unable to accept, does not take his insurance -[facility]: [phone] -left [facility] at [phone] -patient lives out of area/ provided me with number [phone] -spoke to Violeta at above number, who stated patient needs a provider to qualify and he is [place] of her [place] she transferred me to [place] to see if they would make an exception to see. Spoke to Gilda who stated an exception to provider rule is unlikely but provided me with number [phone] and stated should talk to Sierra Avendano, the pastry assistant. -[employer] [facility] at [phone] -spoke to Violeta. She stated they are at capacity and on an 8 week wait list. I provided her with patient information and Gabriela Mueller's number (sister) for contact if and when they may be able to accept. Patient did not have a phone number in his chart. Number to call and inquire about set up, place on list is [phone]. [facility] CARECOORD Chart reviewed. Geriatric MD to see today to assess capacity. Will attempt home visit with new PCP if discharged home. Patient will not be able to have HHC until a PCP is established. Will have SW make DH referral if patient discharged home as well as APS referral if recommended. TCC and SW to continue to follow. [facility] Laboratory - Microbiology an d Antimicrobial susceptibilityon 06-20-2023 Reagin Ab VDRL Ql (CSF) Non-Reactive Non Reacti ve [facility] Comment on above: Because the VDRL was Non Reactive, the VDRL titer was not performed. 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 Keith (from [place]) states she and her sister (who lives in [place]) are Cory's only living relatives. Stated pt [...] reccomending 24 hour care following discharge. RD dental internship saw pt. Pt stated that his appetiite has been normal and he has been eating his meals. Pt stated that he had veal, mashed potatoes, and carrots for lunch. (probably pot roast) When asked what he eats at home he stated whatever I have in the fridge. Pt stated he drinks whole milk frequently [...] (kg): 65.3 kg Total Energy Requirements (kcals/day): 1060-8114 kcal/day (28-30 kcal/kg) Weight Used for Protein Requirements: Current Weight in Kg Used for Protein Requirements: 65.3 kg Estimated Total Protein (g/day): 65-78 gm protein/day (1.0-1.2 gm protein/kg) Estimated Daily Total Fluid (ml/day): per Nutrition Related Findings: bowel sounds active; abdomen soft and nondistended; no edema indicated; last BM 06/20 per pt; labs and med reviews Wound Type: None Current Nutrition Therapies: Adult diet Regular Current Oral Intake Average Meal Intake: 76-100% Average Supplements Intake: 76-100% Anthropometric Measures: Height: 180.3 cm (5' 11) (per chart, pt est 6') Current Body Weight: 66.5 kg (146 lb 9.6 oz) (bedscale) Admission Body Weight: 48.7 kg (107 lb 5.8 oz) (? bedscale) Usual Body Weight: 68 kg (150 lb) (per pt; no weight hx however can see from 2018 01/15/2018- 159#) % Weight Change (Calculated): -4 [place] Body Weight (lbs) (Calculated): 172 lbs [place] Body Weight (Kg) (Calculated): 78 kg % [place] Body Weight (Calculated): 83.7 % BMI (kg/m2) (Calculated): 20.5 Weight Adjustment For: No Adjustment BMI Categories: Underweight (BMI less than 22) age over 65 Nutrition Interventions: Nutrition Education/Counseling : Education not indicated Coordination of Nutrition Care: Continue to monitor while inpatient, Coordination of Care Plan of Care discussed with: pt briefly Goals: Previous Goal Met: Goal(s) Achieved Goals: PO i (more content not included)... Normal [facility] Progress Note PHYSICAL THERAPY [facility] Treatment Note Name/MRN: Cory Mueller ([id number]) Date of : 1950 Age: 72 y.o. Room/Bed: W629/W6629 A Discharge Recommendation: Home independently Equipment Needed: [...] Carmichael Fall Risk Score: 45 (High Risk) Precautions/Restrict ions: N/A Overall Cognitive Status: WNL Overall Orientation [...] Individual Co-treatment Time In 0917 Time Out 0926 Minutes 9 Timed Code Treatment Minutes: (1 gait) Lynda Mendoza PT [facility] Progress Note Attestation signed by Nickie Fagan DO at 06/20/2023 11:20 PM I saw and evaluated the patient. I [...] and geriatrics assistance. 7AM-5PM: contact resident on [facility] Med A (find by hovering over attending's name on left side of patient's chart) 5PM-7AM: contact AI3 res Med Team Progress Note Cory TERRY: 1950(72 y.o.) Date: June 20, 2023 Med [...] Patient Position: Lying) Pulse 66 Temp 36.5 ?C (97.7 ?F) (Temporal) Resp 16 Ht 5' 11 (1.803 m) Comment: per chart, pt est 6' Wt 144 lb (65.3 kg) SpO2 95% BMI 20.08 kg/m? Physical Exam Constitutional: General: [...] past few days - LP performed 06/17. Meningitis/encephali tis PCR negative. Spinal fluids studies show no abnormalities. - PRN tylenol Debility - PT recommending home independently - Awaiting OT recs - Currentl (more content not included)... Normal [facility] Progress Note [facility] Geriatric Medicine Inpatient Consult Service Late Entry [...] to the community. OK to discharge to [facility] from geriatric perspective once safe disposition is determined Time spent: 55 minutes Follow-up: will follow with you Subjective Chief Complaint: Chief Complaint Patient presents with Altered Mental Status Pt is brought into the ED by EMS. Per EMS the pt was found wandering near the [place] [facility]. Pt states that he lives in [place]. Pt states that he remembers getting on [...] history of migraines. Describes his brain as mush. Acknowledges that he is having difficulty thinking. Doesn't think it will be a problem when he goes home because his apartment has an elevator. Tells me that his money has been blocked. Says that he tried to use his [...] expensive to keep it. 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 Has two sisters. One lives in [place]. He says that the other sister does not have room for him to stay with her. He would prefer to go home to his apartment but would also be agreeable to longterm care. I explained the concern for his ability to manage things like groceries, bills, etc given his cognitive impairment. He states that he understands. Thinks he will be ok at home, but cannot tell me why. I discussed Mr. Mueller with Dr. Fagan and Dr. Curry. Objective BP 147/93 Pulse 66 Temp 36.6 ?C (97.8 ?F) (Temporal) Resp 18 Ht 5' 11 (1.803 m) Comment: per chart, pt est 6' Wt 144 lb (65.3 kg) SpO2 97% BMI 20.08 kg/m? Intake/Output Summary (Last 24 hours) at 06/21/2023 0741 Last data filed at 06/20/2023 2215 Gross per 24 hour Intake 1080 ml Output -- Net 1080 ml Wt Readings from Last 3 Encounters: 06/17/23 144 lb (65.3 kg) Current Facility-Administere d Medications: acetaminophen (Tylenol) tablet 650 mg, 650 mg, Oral, q6h PRN, Kenneth Solo DO, 650 mg at 06/20/232113 folic acid (Folvite) tablet 1 mg, 1 mg, Oral, Daily, Bradley Millard MD, 1 mg at 06/20/23 105 melatonin tablet 3 mg, 3 mg, Oral, Nightly PRN, Raymundo Patrick MD, 3 mg at 06/18/232125 melatonin tablet 5 mg, 5 mg, Oral, Nightly, Bradley Millard MD, 5 mg at 06/20/232114 sodium chloride (Seward) 0.65 % nasal spray 1 spray, 1 spray, Each Nostril, PRN, Matty Bryson DO, 1 spray at 06/18/23 0454 Physical Exam Constitutional: General: He is not in (more content not included)... Normal [facility] CARECOORDon 06-19-2023 CARECOORD Updated patient that his sister is willing to be his HCPOA. He does not want to name her,likely since he can not stay with her he does not want her into his buisiness. Will follow. [facility] CARECOORD Chart reviewed. Per SW, patient is unable to move in with his sister however, she is agreeable to being the HCPOA. SW intends to complete. I spoke to patient at bedside about housing. He stated that he would agree to return to his apartment. I discussed with him setting up house calls for his PCP. He agrees. Placed call to [facility] and left VM to set up home visits. TCC and SW to continue to follow [facility] CARECOORD Also spoke with sister-Gabriela regarding HCPOA-she is willing. Did explain what all that means and she would be the contact in the future regarding medical issues. Will work with patient on paperwork. [facility] CARECOORD Contacted sister- Gabriela Mueller-[phone]. She states she and family have not [...] ties with family years ago. Will follow. [facility] CBC W Auto Differential pane l (Bld)Ordered By: Hema Isaac on 06-19-2023 Basophils (Bld) [#/Vol] 0.1 10*3/uL 0.0 - 0.2 10*3/uL [facility] Basophils/100 WBC (Bld) 1.0 % 0.0 - 2.0 % [facility] Eosinophils (Bld) [#/Vol] 0.3 10*3/uL 0.0 - 0.5 10*3/uL [facility] Eosinophils/100 WBC (Bld) 5.5 % 1.0 - 6.0 % [facility] Erythrocyte distribution width (RBC) [Ratio] 14.8 % High 11.5 - 14.5 % [facility] Hematocrit (Bld) [Volume fraction] 40.1 % 40.0 - 52.0 % [facility] Hemoglobin (Bld) [Mass/Vol] 13.9 g/dL 13.0 - 18.0 g/dL [facility] Interpretation and review of laboratory results Abnormal [facility] Lymphocytes (Bld) [#/Vol] 1.3 10*3/uL 1.0 - 4.3 10*3/uL [facility] Lymphocytes/100 WBC (Bld) 24.3 % 20.0 - 40.0 % [facility] MCH (RBC) [Entitic mass] 29.6 pg 26.0 - 34.0 pg [facility] MCHC (RBC) [Mass/Vol] 34.6 % 32.0 - 36.0 % [facility] MCV (RBC) [Entitic vol] 85.6 fL 80.0 - 98.0 fL [facility] Monocytes (Bld) [#/Vol] 0.6 10*3/uL 0.0 - 0.8 10*3/uL [facility] Monocytes/100 WBC (Bld) 12.2 % High 2.0 - 10.0 % [facility] Neutrophils (Bld) [#/Vol] 3.0 10*3/uL 1.8 - 7.0 10*3/uL [facility] Neutrophils/100 WBC (Bld) 57.0 % 40.0 - 80.0 % [facility] Nucleated RBC/100 WBC (Bld) [Ratio] 0.0 % [facility] Platelet mean volume (Bld) [Entitic vol] 8.3 fL 7.4 - 12.4 fL [facility] Platelets (Bld) [#/Vol] 197 10*3/uL 140 - 440 10*3/uL [facility] RBC (Bld) [#/Vol] 4.68 10*6/uL 4.40 - 5.9 0 10*6/uL [facility] WBC (Bld) [#/Vol] 5.3 10*3/uL 3.6 - 10.7 10*3/uL [facility] CBC WITH AUTO DIFFERENTIALon 06-19-2023 Basophils (Bld) [#/Vol] 0.1 10*3/uL Normal 0.0-0.2 [facility] Comment on above: Performed By: #### L [id number] ####Systems Security Analyst: SIERRA GUERRA ([id number])[facility] ([facility])[address] [place] [address] Basophils/100 WBC (Bld) 1.0 % Normal 0.0-2.0 [facility] Comment on above: Performed By: #### L [id number] ####Systems Security Analyst: SIERRA GUERRA ([id number])[facility] ([facility])[address] [place] [address] Eosinophils (Bld) [#/Vol] 0.3 10*3/uL Normal 0.0-0.5 [facility] Comment on above: Performed By: #### L [id number] ####Systems Security Analyst: SIERRA GUERRA ([id number])[facility] ([facility])[address] [place] [address] Eosinophils/100 WBC (Bld) 5.5 % Normal 1.0-6.0 [facility] Comment on above: Performed By: #### L [id number] ####Systems Security Analyst: SIERRA GUERRA ([id number])[facility])[address] [place] [address] Erythrocyte distribution width (RBC) [Ratio] 14.8 % High 11.5-14.5 [facility] Comment on above: Performed By: #### L [id number] ####Systems Security Analyst: SIERRA GUERRA ([id number])[facility])[address] [place] [address] ERYTHROCYTE MEAN CORPUSCULAR HEMOGLOBIN CONCENTRATION (G/DL) BY AUTOMATED 34.6 % Normal 32.0-36.0 [facility] Comment on above: Performed By: #### L [id number] ####Systems Security Analyst: SIERRA GUERRA ([id number])[facility])[address] [place] [address] Hematocrit (Bld) [Volume fraction] 40.1 % Normal 40.0-52.0 [facility] Comment on above: Performed By: #### L [id number] ####Systems Security Analyst: SIERRA GUERRA ([id number])[facility])[address] [place] [address] Hemoglobin (Bld) [Mass/Vol] 13.9 g/dL Normal 13.0-18.0 [facility] Comment on above: Performed By: #### L [id number] ####Systems Security Analyst: SIERRA GUERRA ([id number])[facility])[address] [place] [address] Lymphocytes (Bld) [#/Vol] 1.3 10*3/uL Normal 1.0-4.3 [facility] Comment on above: Performed By: #### L [id number] ####Systems Security Analyst: SIERRA GUERRA ([id number])[facility])[address] [place] [address] Lymphocytes/100 WBC (Bld) 24.3 % Normal 20.0-40.0 [facility] Comment on above: Performed By: #### L [id number] ####Systems Security Analyst: SIERRA GUERRA ([id number])[facility])[address] [place] [address] MCH (RBC) [Entitic mass] 29.6 pg Normal 26.0-34.0 [facility] Comment on above: Performed By: #### L [id number] ####Systems Security Analyst: SIERRA GUERRA ([id number])[facility])[address] [place] [address] MCV (RBC) [Entitic vol] 85.6 fL Normal 80.0-98.0 [facility] Comment on above: Performed By: #### L [id number] ####Systems Security Analyst: SIERRA GUERRA ([id number])[facility] [facility] [place] [address] [place] Monocytes (Bld) [#/Vol] 0.6 10*3/uL Normal 0.0-0.8 [facility] Comment on above: Performed By: #### L [id number] ####Systems Security Analyst: SIERRA GUERRA ([phone])[facility] ([facility])[address] [place] [address] Monocytes/100 WBC (Bld) 12.2 % High 2.0-10.0 [facility] Comment on above: Performed By: #### L [id number] ####Systems Security Analyst: SIERRA GUERRA ([phone])[facility] ([facility])[address] [place] [address] [place] Neutrophils (Bld) [#/Vol] 3.0 10*3/uL Normal 1.8-7.0 [facility] Comment on above: Performed By: #### L [id number] ####Systems Security Analyst: SIERRA GUERRA ([phone])[facility] ([facility])[address] [place] [address] Neutrophils/100 WBC (Bld) 57.0 % Normal 40.0-80.0 [facility] Comment on above: Performed By: #### L [id number] ####Systems Security Analyst: SIERRA GUERRA ([phone])[facility])[address] [place] [address] NRBC (PER 100 WBCS) BY AUTOMATED COUNT 0.0 /100 WBCs Normal 0.0-2.0 [facility] Comment on above: Performed By: #### L [id number] ####Systems Security Analyst: SIERRA GUERRA ([phone])[facility] ([facility])[address] [place] [address] [place] Platelet mean volume (Bld) [Entitic vol] 8.3 fL Normal 7.4-12.4 [facility] Comment on above: Performed By: #### L [id number] ####Systems Security Analyst: SIERRA GUERRA ([phone])[facility] ([facility])[address] [place] [address] [place] Platelets (Bld) [#/Vol] 197 10*3/uL Normal 140-440 [facility] Comment on above: Performed By: #### L [id number] ####Systems Security Analyst: SIERRA GUERRA ([phone])[facility])[address] [place] [address] RBC (Bld) [#/Vol] 4.68 10*6/uL Normal 4.40-5.90 [facility] Comment on above: Performed By: #### L [id number] ####Systems Security Analyst: SIERRA GUERRA ([phone])[facility] ([facility])[address] [place] [address] WBC (Bld) [#/Vol] 5.3 10*3/uL Normal 3.6-10.7 [facility] Comment on above: Performed By: #### L [id number] ####Systems Security Analyst: SIERRA GUERRA ([phone])[facility])[address] [place] [address] COMPREHENSIVE METABOLIC PANE Pavel 06-19-2023 Albumin [Mass/Vol] 3.8 g/dL Normal 3.5-5.0 [facility] Comment on above: Performed By: #### L [id number] ####Systems Security Analyst: SIERRA GUERRA ([phone])[facility])[address] [place] [address] ALP [Catalytic activity/Vol] 79 U/L Normal 38-126 [facility] Comment on above: Performed By: #### L [id number] ####Systems Security Analyst: SIERRA GUERRA ([phone])[facility])[address] [place] [address] ALT [Catalytic activity/Vol] 16 U/L Normal 0-49 [facility] Comment on above: Performed By: #### L [id number] ####Systems Security Analyst: SIERRA GUERRA ([phone])[facility])[address] [place] [address] Anion gap [Moles/Vol] 7 mmol/L Normal 3-13 [facility] Comment on above: Performed By: #### L [id number] ####Systems Security Analyst: SIERRA GUERRA ([phone])[facility] ([facility])[address] [place] [address] AST [Catalytic activity/Vol] 24 U/L Normal 15-46 [facility] Comment on above: Performed By: #### L [id number] ####Systems Security Analyst: SIERRA GUERRA ([phone])[facility] ([facility])[address] [place] [address] [place] Bilirubin [Mass/Vol] 0.4 mg/dL Normal 0.2-1.3 [facility] Comment on above: Performed By: #### L [id number] ####Systems Security Analyst: SIERRA GUERRA ([phone])[facility] ([facility])[address] [place] [address] Calcium [Mass/Vol] 8.8 mg/dL Normal 8.4-10.4 [facility] Comment on above: Performed By: #### L [id number] ####Systems Security Analyst: SIERRA GUERRA ([phone])[facility] ([facility])[address] [place] [address] [place] Chloride [Moles/Vol] 105 mmol/L Normal 98-107 [facility] Comment on above: Performed By: #### L [id number] ####Systems Security Analyst: SIERRA GUERRA ([phone])[facility] ([facility])[address] [place] [address] [place] CO2 [Moles/Vol] 23 mmol/L Normal 22-30 [facility] Comment on above: Performed By: #### L [id number] ####Systems Security Analyst: SIERRA GUERRA ([id number])[facility] ([facility])[address] [place] [address] [place] Creatinine [Mass/Vol] 0.89 mg/dL Normal 0.66-1.25 [facility] Comment on above: Performed By: #### L [id number] ####Systems Security Analyst: SIERRA GUERRA ([phone])[facility] ([facility])[address] [place] [address] [place] GLOMERULAR FILTRATION RATE ML/MIN/1.73 SQ M.PREDICTED >90.0 Normal >60.0 [facility] Comment on above: Result Comment: Calc ulation based on the Chronic Kidney Disease Epidemiology Collaboration (CKD-EPI) equation refit without adjustment for race Performed By: #### L [id number] ####Systems Security Analyst: SIERRA GUERRA ([phone])[facility] ([facility])[address] [place] [address] Glucose [Mass/Vol] 88 mg/dL Normal 70-100 [facility] Comment on above: Performed By: #### L [id number] ####Systems Security Analyst: SIERRA GUERRA ([phone])[facility] ([facility])[address] [place] [address] Potassium [Moles/Vol] 4.4 mmol/L Normal 3.5-5.1 [facility] Comment on above: Performed By: #### L [id number] ####Systems Security Analyst: SIERRA GUERRA ([phone])[facility] ([facility])[address] [place] [address] Protein [Mass/Vol] 8.0 g/dL Normal 6.3-8.2 [facility] Comment on above: Performed By: #### L [id number] ####Systems Security Analyst: SIERRA GUERRA ([phone])[facility])[address] [place] [address] Sodium [Moles/Vol] 135 mmol/L Normal 135-145 [facility] Comment on above: Performed By: #### L [id number] ####Systems Security Analyst: SIERRA GUERRA ([phone])[facility])[address] [place] [address] Urea nitrogen [Mass/Vol] 18 mg/dL Normal 9-20 [facility] Comment on above: Performed By: #### L [id number] ####Systems Security Analyst: SIERRA GUERRA ([phone])[facility])[address] [place] [address] Comprehensive metabolic 1998 panelon 06-19-2023 Albumin [Mass/Vol] 3.8 g/dL 3.5 - 5.0 g/dL [facility] ALP [Catalytic activity/Vol] 79 U/L 38 - 126 U/L [facility] ALT [Catalytic activity/Vol] 16 U/L 0 - 49 U/L [facility] Anion gap [Moles/Vol] 7 mmol/L 3 - 13 mmol/L [facility] AST [Catalytic activity/Vol] 24 U/L 15 - 46 U/L [facility] Bilirubin [Mass/Vol] 0.4 mg/dL 0.2 - 1 .3 mg/dL [facility] Calcium [Mass/Vol] 8.8 mg/dL 8.4 - 10. 4 mg/dL [facility] Chloride [Moles/Vol] 105 mmol/L 98 - 10 7 mmol/L [facility] CO2 [Moles/Vol] 23 mmol/L 22 - 30 mmol/L [facility] Creatinine [Mass/Vol] 0.89 mg/dL 0.66 - 1.25 mg/dL [facility] GFR/1.73 sq M.predicted MDRD (S/P/Bld) [Vol rate/Area] - PINF [facility] Comment on above: Calculation based on the Chronic Kidney Disease Epidemiology Collaboration (CKD-EPI) equation refit without adjustment for race Glucose [Mass/Vol] 88 mg/dL 70 - 100 mg/dL [facility] Interpretation and review of laboratory results Normal [facility] Potassium [Moles/Vol] 4.4 mmol/L 3.5 - 5.1 mmol/L [facility] Protein [Mass/Vol] 8.0 g/dL 6.3 - 8.2 g/dL [facility] Sodium [Moles/Vol] 135 mmol/L 135 - 145 mmol/L [facility] Urea nitrogen [Mass/Vol] 18 mg/dL 9 - 20 mg/d L [facility] IDNon 06-19-2023 IDN The patient is Moderately Stable - Low [...] Interventions Goal: Assess Nutritional Intake Outcome: Progressing Normal [facility] Nursing Noteon 06-19-2023 Nursing Note Patient c/o headache 11/26. Tylenol was given earlier in the day for c/o headache. No relief. Informed MD. MD doesn't want to order any new medications at this time due to his mentation. Will continue to monitor. [facility] Progress Noteon 06-19-2023 Progress Note Attestation signed by Sierra Hay MD at 06/19/2023 6:22 PM I have discussed the care of [...] for discharge planning. 7AM-5PM: contact resident on [facility] Med A team (found by hoovering over [...] the electronic health record, and coordinating care. Med Team Progress Note Cory Mueller : [...] month his check was held by the project construction assistant manager. Informed patient that we spoke to [...] Neurological: Negative for dizziness, weakness and light-headedness. Psychiatric/Behavior al: Negative for agitation and confusion. Scheduled Meds:folic acid, 1 mg, Oral, Daily melatonin, 5 mg, Oral, Nightly Continuous Infusions: PRN meds used in last 24hrs: Melatonin Objective: BP 130/70 (BP Location: Right arm) Pulse 66 Temp 36.7 ?C (98 ?F) (Temporal) Resp 20 Ht 5' 11 (1.803 m) Comment: per chart, pt est 6' Wt 144 lb (65.3 kg) SpO2 98% BMI 20.08 kg/m? Physical Exam Vitals reviewed. Constitutional: General: He is not in acute distress. Appearance: Normal appearance. He is not ill-appearing. HENT: Head: Normocephalic and atraumatic. Cardiovascular: Rate and Rhythm: Normal rate and regular rhythm. Pulses: Normal pulses. Heart sounds: Normal hea (more content not included)... [facility] CARECOORDon 06-18-2023 [facility] Consumer Physics Work consulted for housing-patient kicked out of his apartment. Reviewed chart, met with patient to discuss. Patient states he was kicked out of his apartment-. [facility] housing in [place] for smoking in his apartment. MYNOR contacted [employer] -left message. Call received back from Yudith landa to the building analyst/supervisor-Saloni Nance. Yudith stated patient is not kicked [...] discuss with this with her. [facility] follow. [facility] noting that patient is [...] he has capacity) for discharge, ie homeless assisted, medicaid for ECF. TCC to continue to follow. Normal [facility] CBC W Auto Differential pane l (Bld)Ordered By: Mike Syed on 06-18-2023 Basophils (Bld) [#/Vol] 0.1 10*3/uL 0.0 - 0.2 10*3/uL [facility] Basophils/100 WBC (Bld) 1.1 % 0.0 - 2.0 % [facility] Eosinophils (Bld) [#/Vol] 0.3 10*3/uL 0.0 - 0.5 10*3/uL [facility] Eosinophils/100 WBC (Bld) 6.6 % High 1.0 - 6.0 % [facility] Erythrocyte distribution width (RBC) [Ratio] 14.5 % 11.5 - 14.5 % [facility] Hematocrit (Bld) [Volume fraction] 38.6 % Low 40.0 - 52.0 % [facility] Hemoglobin (Bld) [Mass/Vol] 13.4 g/dL 13.0 - 18.0 g/dL [facility] Interpretation and review of laboratory results Abnormal [facility] Lymphocytes (Bld) [#/Vol] 1.2 10*3/uL 1.0 - 4.3 10*3/uL [facility] Lymphocytes/100 WBC (Bld) 23.9 % 20.0 - 40.0 % [facility] MCH (RBC) [Entitic mass] 29.6 pg 26.0 - 34.0 pg [facility] MCHC (RBC) [Mass/Vol] 34.7 % 32.0 - 36.0 % [facility] MCV (RBC) [Entitic vol] 85.2 fL 80.0 - 98.0 fL [facility] Monocytes (Bld) [#/Vol] 0.6 10*3/uL 0.0 - 0.8 10*3/uL [facility] Monocytes/100 WBC (Bld) 11.2 % High 2.0 - 10.0 % [facility] Neutrophils (Bld) [#/Vol] 2.9 10*3/uL 1.8 - 7.0 10*3/uL [facility] Neutrophils/100 WBC (Bld) 57.2 % 40.0 - 80.0 % [facility] Nucleated RBC/100 WBC (Bld) [Ratio] 0.1 % [facility] Platelet mean volume (Bld) [Entitic vol] 8.0 fL 7.4 - 12.4 fL [facility] Platelets (Bld) [#/Vol] 182 10*3/uL 140 - 440 10*3/uL [facility] RBC (Bld) [#/Vol] 4.53 10*6/uL 4.40 - 5.9 0 10*6/uL [facility] WBC (Bld) [#/Vol] 5.1 10*3/uL 3.6 - 10.7 10*3/uL [facility] CBC WITH AUTO DIFFERENTIALon 06-18-2023 Basophils (Bld) [#/Vol] 0.1 10*3/uL Normal 0.0-0.2 [facility] Comment on above: Performed By: #### L [id number] ####Systems Security Analyst: SIERRA GUERRA ([phone])[facility])[address] [place] [address] Basophils/100 WBC (Bld) 1.1 % Normal 0.0-2.0 [facility] Comment on above: Performed By: #### L [id number] ####Systems Security Analyst: SIERRA GUERRA ([phone])[facility] ([facility])[address] [place] [address] [place] Eosinophils (Bld) [#/Vol] 0.3 10*3/uL Normal 0.0-0.5 [facility] Comment on above: Performed By: #### L [id number] ####Systems Security Analyst: SIERRA GUERRA ([phone])[facility] ([facility])[address] [place] [address] [place] Eosinophils/100 WBC (Bld) 6.6 % High 1.0-6.0 [facility] Comment on above: Performed By: #### L [id number] ####Systems Security Analyst: SIERRA GUERRA ([id number])[facility])[address] [place] [address] Erythrocyte distribution width (RBC) [Ratio] 14.5 % Normal 11.5-14.5 [facility] Comment on above: Performed By: #### L [id number] ####Systems Security Analyst: SIERRA GUERRA ([phone])[facility])[address] [place] [address] ERYTHROCYTE MEAN CORPUSCULAR HEMOGLOBIN CONCENTRATION (G/DL) BY AUTOMATED 34.7 % Normal 32.0-36.0 [facility] Comment on above: Performed By: #### L [id number] ####Systems Security Analyst: SIERRA GUERRA ([phone])[facility])[address] [place] [address] Hematocrit (Bld) [Volume fraction] 38.6 % Low 40.0-52.0 [facility] Comment on above: Performed By: #### L [id number] ####Systems Security Analyst: SIERRA GUERRA ([phone])[facility])[address] [place] [address] Hemoglobin (Bld) [Mass/Vol] 13.4 g/dL Normal 13.0-18.0 [facility] Comment on above: Performed By: #### L [id number] ####Systems Security Analyst: SIERRA GUERRA ([phone])[facility])[address] [place] [address] Lymphocytes (Bld) [#/Vol] 1.2 10*3/uL Normal 1.0-4.3 [facility] Comment on above: Performed By: #### L [id number] ####Systems Security Analyst: SIERRA GUERRA ([phone])[facility])[address] [place] [address] Lymphocytes/100 WBC (Bld) 23.9 % Normal 20.0-40.0 [facility] Comment on above: Performed By: #### L [id number] ####Systems Security Analyst: SIERRA GUERRA ([phone])[facility])[address] [place] [address] MCH (RBC) [Entitic mass] 29.6 pg Normal 26.0-34.0 [facility] Comment on above: Performed By: #### L [id number] ####Systems Security Analyst: SIERRA GUERRA ([phone])[facility])[address] [place] [address] MCV (RBC) [Entitic vol] 85.2 fL Normal 80.0-98.0 [facility] Comment on above: Performed By: #### L [id number] ####Systems Security Analyst: SIERRA GUERRA ([phone])[facility])[address] [place] [address] Monocytes (Bld) [#/Vol] 0.6 10*3/uL Normal 0.0-0.8 [facility] Comment on above: Performed By: #### L [id number] ####Systems Security Analyst: SIERRA GUERRA ([phone])[facility])[address] [place] [address] Monocytes/100 WBC (Bld) 11.2 % High 2.0-10.0 [facility] Comment on above: Performed By: #### L [id number] ####Systems Security Analyst: SIERRA GUERRA ([phone])[facility])[address] [place] [address] Neutrophils (Bld) [#/Vol] 2.9 10*3/uL Normal 1.8-7.0 [facility] Comment on above: Performed By: #### L [id number] ####Systems Security Analyst: SIERRA GUERRA ([phone])[facility])[address] [place] [address] Neutrophils/100 WBC (Bld) 57.2 % Normal 40.0-80.0 [facility] Comment on above: Performed By: #### L [id number] ####Systems Security Analyst: SIERRA GUERRA ([phone])[facility] ([facility])[address] [place] [address] NRBC (PER 100 WBCS) BY AUTOMATED COUNT 0.1 /100 WBCs Normal 0.0-2.0 [facility] Comment on above: Performed By: #### L [id number] ####Systems Security Analyst: SIERRA GUERRA ([phone])[facility] ([facility])[address] [place] [address] Platelet mean volume (Bld) [Entitic vol] 8.0 fL Normal 7.4-12.4 [facility] Comment on above: Performed By: #### L [id number] ####Systems Security Analyst: SIERRA GUERRA ([phone])[facility] ([facility])[address] [place] [address] Platelets (Bld) [#/Vol] 182 10*3/uL Normal 140-440 [facility] Comment on above: Performed By: #### L [id number] ####Systems Security Analyst: SIERRA GUERRA ([phone])[facility] ([facility])[address] [place] [address] RBC (Bld) [#/Vol] 4.53 10*6/uL Normal 4.40-5.90 [facility] Comment on above: Performed By: #### L [id number] ####Systems Security Analyst: SIERRA GUERRA ([phone])[facility] ([facility])[address] [place] [address] WBC (Bld) [#/Vol] 5.1 10*3/uL Normal 3.6-10.7 [facility] Comment on above: Performed By: #### L [id number] ####Systems Security Analyst: SIERRA GUERRA ([phone])[facility])[address] [place] [address] COMPREHENSIVE METABOLIC PANE Pavle 06-18-2023 Albumin [Mass/Vol] 3.8 g/dL Normal 3.5-5.0 [facility] Comment on above: Performed By: #### L [id number], [id number], [id number] #### Systems Security Analyst: SIERRA GUERRA ([phone]) [facility] ([facility]) [address] [place] [address] ALP [Catalytic activity/Vol] 84 U/L Normal 38-126 [facility] Comment on above: Performed By: #### L [id number], [id number], [id number] #### Systems Security Analyst: SIERRA GUERRA ([phone]) [facility] ([facility]) [address] [place] [address] ALT [Catalytic activity/Vol] 16 U/L Normal 0-49 [facility] Comment on above: Performed By: #### L [id number], [id number], [id number] #### Systems Security Analyst: SIERRA GUERRA ([id number]) [facility] ([facility]) [address] [place] [address] Anion gap [Moles/Vol] 10 mmol/L Normal 3-13 [facility] Comment on above: Performed By: #### L [id number], [id number], [id number] #### Systems Security Analyst: SIERRA GUERRA ([phone]) [facility] ([facility]) [address] [place] [address] AST [Catalytic activity/Vol] 28 U/L Normal 15-46 [facility] Comment on above: Performed By: #### L [id number], [id number], [id number] #### Systems Security Analyst: SIERRA GUERRA ([phone]) [facility] ([facility]) [address] [place] [address] Bilirubin [Mass/Vol] 0.4 mg/dL Normal 0.2-1.3 [facility] Comment on above: Performed By: #### L [id number], [id number], [id number] #### Systems Security Analyst: SIERRA GUERRA ([phone]) [facility]) [address] [place] [address] Calcium [Mass/Vol] 8.7 mg/dL Normal 8.4-10.4 [facility] Comment on above: Performed By: #### L [id number], [id number], [id number] #### Systems Security Analyst: SIERRA GUERRA ([phone]) [facility] ([facility]) [address] [place] [address] [place] Chloride [Moles/Vol] 104 mmol/L Normal 98-107 [facility] Comment on above: Performed By: #### L [id number], [id number], [id number] #### Systems Security Analyst: SIERRA GUERRA ([id number]) [facility] ([facility]) [address] [place] [address] [place] CO2 [Moles/Vol] 21 mmol/L Low 22-30 [facility] Comment on above: Performed By: #### L [id number], [id number], [id number] #### Systems Security Analyst: SIERRA GUERRA ([phone]) [facility] ([facility]) [address] [place] [address] Creatinine [Mass/Vol] 0.92 mg/dL Normal 0.66-1.25 [facility] Comment on above: Performed By: #### L [id number], [id number], [id number] #### Systems Security Analyst: SIERRA GUERRA ([phone]) [facility] ([facility]) [address] [place] [address] GLOMERULAR FILTRATION RATE ML/MIN/1.73 SQ M.PREDICTED 88.9 mL/min/1.73m*2 Normal >60.0 [facility] Comment on above: Result Comment: Calc ulation based on the Chronic Kidney Disease Epidemiology Collaboration (CKD-EPI) equation refit without adjustment for race Performed By: #### L [id number], [id number], [id number] #### Systems Security Analyst: SIERRA GUERRA ([phone]) [facility] ([facility]) [address] [place] [address] [place] Glucose [Mass/Vol] 90 mg/dL Normal 70-100 [facility] Comment on above: Performed By: #### L [id number], [id number], [id number] #### Systems Security Analyst: SIERRA GUERRA ([phone]) [facility] ([facility]) [address] [place] [address] [place] Potassium [Moles/Vol] 4.3 mmol/L Normal 3.5-5.1 [facility] Comment on above: Performed By: #### L [id number], HAE584, SDR869 #### Systems Security Analyst: SIERRA GUERRA ([phone]) [facility] ([facility]) [address] [place] [address] Protein [Mass/Vol] 8.0 g/dL Normal 6.3-8.2 [facility] Comment on above: Performed By: #### L [id number], [id number], [id number] #### Systems Security Analyst: SIERRA GUERRA ([phone]) [facility] ([facility] [place]) [address] [place] [address] Sodium [Moles/Vol] 135 mmol/L Normal 135-145 [facility] Comment on above: Performed By: #### L [id number], [id number], [id number] #### Systems Security Analyst: SIERRA GUERRA ([phone]) [facility] ([facility]) [address] [place] [address] Urea nitrogen [Mass/Vol] 20 mg/dL Normal 9-20 [facility] Comment on above: Performed By: #### L [id number], [id number], [id number] #### Systems Security Analyst: SIERRA GUERRA ([phone]) [facility] [facility]) [address] [place] [address] Comprehensive metabolic 1998 panelon 06-18-2023 Albumin [Mass/Vol] 3.8 g/dL 3.5 - 5.0 g/dL [facility] ALP [Catalytic activity/Vol] 84 U/L 38 - 126 U/L [facility] ALT [Catalytic activity/Vol] 16 U/L 0 - 49 U/L [facility] Anion gap [Moles/Vol] 10 mmol/L 3 - 13 mmol/L [facility] AST [Catalytic activity/Vol] 28 U/L 15 - 46 U/L [facility] Bilirubin [Mass/Vol] 0.4 mg/dL 0.2 - 1 .3 mg/dL [facility] Calcium [Mass/Vol] 8.7 mg/dL 8.4 - 10. 4 mg/dL [facility] Chloride [Moles/Vol] 104 mmol/L 98 - 10 7 mmol/L [facility] CO2 [Moles/Vol] 21 mmol/L Low 22 - 30 mmol/L [facility] Creatinine [Mass/Vol] 0.92 mg/dL 0.66 - 1.25 mg/dL [facility] GFR/1.73 sq M.predicted MDRD (S/P/Bld) [Vol rate/Area] 88.9 mL/min/{1.73_m2} - PINF [facility] Comment on above: Calculation based on the Chronic Kidney Disease Epidemiology Collaboration (CKD-EPI) equation refit without adjustment for race Glucose [Mass/Vol] 90 mg/dL 70 - 100 mg/dL [facility] Interpretation and review of laboratory results Abnormal [facility] Potassium [Moles/Vol] 4.3 mmol/L 3.5 - 5.1 mmol/L [facility] Protein [Mass/Vol] 8.0 g/dL 6.3 - 8.2 g/dL [facility] Sodium [Moles/Vol] 135 mmol/L 135 - 145 mmol/L [facility] Urea nitrogen [Mass/Vol] 20 mg/dL 9 - 20 mg/d L [facility] Consulton 06-18-2023 Consult [facility] [place] coordination [place]. Normal [facility] Fungus identified Fungus sta in Nom (Unsp spec)Ordered By: Huy Zazueta on 06-18-2023 Calcofluor White Stain Result No fungal elements seen [facility] Reference Range: No fungal elements seen [facility] Progress Noteon 06-18-2023 Progress Note [facility] Geriatric Medicine Inpatient Consult Service Admission Date: [...] --No antipsychotic unless patient is danger to self/others/treatmen t --Continue scheduled melatonin at HS --Monitor for constipation/urinary retention - last BM 06/17/23 --Encourage PO intake, time up in chair, family visits, supervised ambulation, and sleep hygiene Cognitive deficits --Deficits on initial testing ( on MMSE, CDT 6/7) -- Unclear history of cognitive decline at [...] abnormality. --Recommend outpatient [facility] at [facility] [...] be available to this patient (ECF or assisted?) and work with patient and family and choosing a safe discharge plan. Discussed with primary team and RN Follow-up: will follow with you Subjective Chief Complaint: Patient presents with Altered Mental Status Pt is brought into the ED by EMS. Per EMS the pt was [place] the [facility]. Pt states that he lives in [place]. Pt states that he remembers getting on the bus this morning. Pt states that he is not sure where he was going when he got on the bus. Pt states that he does not remember much from today. Geriatrics consulted for Episode of confusion and wondering to [facility], unclear etiology. MMSE 20. Concerns for safety at home HPI- The patient is new to me but seen by the Geriatric Inpatient Consult team. 72 y.o. year-old male admitted to acute care from home for confusion. Per H&P, patient was brought from [facility] by EMS. He was supposedly at home watching TV and somehow found himself on the bus and ended up at [facility]. Diagnosed with an amnestic event. Per chart review, lab work in the ED unremarkable. CT head and CXR showed no acute findings. Patient reported to live at home [place] and is able to perform all ADL's. He does not take any medications and has not seen a PCP in years. Per initial geriatric consult note, prior to admission patient was independent in ADL's and most IADL's. He has not driven for the last year and did not want to drive anymore due to the cost. I (more content not included)... Normal [facility] Progress Note Attestation signed by Sierra Hay MD at 06/18/2023 2:18 PM I have discussed the care of [...] Geriatrics following, will need follow up in [place] [facility]. Need to work on disposition now, as he is medically ok for discharge. His sister was contacted yesterday. Patient was given her correct number and wants to discuss if he can move in with her. If this is not possible, will work with SW regarding other options-?ECF 7AM-5PM: contact resident on [facility] Med A team (found by hoovering over [...] results to the patient, and coordinating care. Med Team Progress Note Cory Mueller : 1950(72 y.o.) Date: June 18, 2023 Med Team: A Attending: Dr. Hay [...] Negative for dizziness, weakness, light-headedness and headaches. Psychiatric/Behavior al: Negative for agitation and confusion. Scheduled Meds:folic acid, 1 mg, Oral, Daily melatonin, 5 mg, Oral, Nightly Continuous Infusions: PRN meds used in last 24hrs: Tylenol, melatonin Objective: BP 129/67 Pulse 69 Temp 36.7 ?C (98 ?F) (Temporal) Resp 18 Ht 5' 11 (1.803 m) Comment: per chart, pt est 6' Wt 144 lb (65.3 kg) SpO2 95% BMI 20.08 kg/m? Physical Exam Vitals reviewed. Constitutional: General: [...] Ref Range Status 06/18/2023 104 98 - (more content not included)... Normal [facility] CARECOORDon 06-17-2023 CARECOORD Chart reviewed. Patient with increased confusion and COLLIER. +Rx for possible meningitis, LP pending. Patient is green slipped. Geriatrics consulted for delirium. PT recommending home independently. Patient may need decision maker and placement if unable to care for self. TCC to continue to follow. Normal [facility] CBC W Auto Differential pane l (Bld)on 06-17-2023 Basophils (Bld) [#/Vol] 0.0 10*3/uL 0.0 - 0.2 10*3/uL [facility] Basophils/100 WBC (Bld) 0.9 % 0.0 - 2.0 % [facility] Eosinophils (Bld) [#/Vol] 0.3 10*3/uL 0.0 - 0.5 10*3/uL [facility] Eosinophils/100 WBC (Bld) 6.5 % High 1.0 - 6.0 % [facility] Erythrocyte distribution width (RBC) [Ratio] 14.5 % 11.5 - 14.5 % [facility] Hematocrit (Bld) [Volume fraction] 38.3 % Low 40.0 - 52.0 % [facility] Hemoglobin (Bld) [Mass/Vol] 13.1 g/dL 13.0 - 18.0 g/dL [facility] Interpretation and review of laboratory results Abnormal [facility] Lymphocytes (Bld) [#/Vol] 1.2 10*3/uL 1.0 - 4.3 10*3/uL [facility] Lymphocytes/100 WBC (Bld) 26.6 % 20.0 - 40.0 % [facility] MCH (RBC) [Entitic mass] 29.3 pg 26.0 - 34.0 pg [facility] MCHC (RBC) [Mass/Vol] 34.2 % 32.0 - 36.0 % [facility] MCV (RBC) [Entitic vol] 85.7 fL 80.0 - 98.0 fL [facility] Monocytes (Bld) [#/Vol] 0.5 10*3/uL 0.0 - 0.8 10*3/uL [facility] Monocytes/100 WBC (Bld) 11.2 % High 2.0 - 10.0 % [facility] Neutrophils (Bld) [#/Vol] 2.4 10*3/uL 1.8 - 7.0 10*3/uL [facility] Neutrophils/100 WBC (Bld) 54.8 % 40.0 - 80.0 % [facility] Nucleated RBC/100 WBC (Bld) [Ratio] 0.0 % [facility] Platelet mean volume (Bld) [Entitic vol] 7.9 fL 7.4 - 12.4 fL [facility] Platelets (Bld) [#/Vol] 175 10*3/uL 140 - 440 10*3/uL [facility] RBC (Bld) [#/Vol] 4.47 10*6/uL 4.40 - 5.9 0 10*6/uL [facility] WBC (Bld) [#/Vol] 4.4 10*3/uL 3.6 - 10.7 10*3/uL [facility] CBC WITH AUTO DIFFERENTIALon 06-17-2023 Basophils (Bld) [#/Vol] 0.0 10*3/uL Normal 0.0-0.2 [facility] Comment on above: Performed By: #### L [id number], [id number], [id number] #### Systems Security Analyst: SIERRA GUERRA ([id number]) [facility] ([facility]) [address] [place] [address] Basophils/100 WBC (Bld) 0.9 % Normal 0.0-2.0 [facility] Comment on above: Performed By: #### L [id number], [id number], [id number] #### Systems Security Analyst: SIERRA GUERRA ([phone]) [facility]) [address] [place] [address] Eosinophils (Bld) [#/Vol] 0.3 10*3/uL Normal 0.0-0.5 [facility] Comment on above: Performed By: #### L [id number], [id number], IBL203 #### Systems Security Analyst: SIERRA GUERRA ([phone]) [facility]) [address] [place] [address] Eosinophils/100 WBC (Bld) 6.5 % High 1.0-6.0 [facility] Comment on above: Performed By: #### Minda [id number], [id number], [id number] #### Systems Security Analyst: SIERRA GUERRA ([phone]) [facility]) [address] [place] [address] Erythrocyte distribution width (RBC) [Ratio] 14.5 % Normal 11.5-14.5 [facility] Comment on above: Performed By: #### L [id number], [id number], SBF648 #### Systems Security Analyst: SIERRA GUERRA ([phone]) [address] ERYTHROCYTE MEAN CORPUSCULAR HEMOGLOBIN CONCENTRATION (G/DL) BY AUTOMATED 34.2 % Normal 32.0-36.0 [facility] Comment on above: Performed By: #### L [id number], BCB944, [id number] #### Systems Security Analyst: SIERRA GUERRA ([phone]) [facility]) [address] [place] [address] Hematocrit (Bld) [Volume fraction] 38.3 % Low 40.0-52.0 [facility] Comment on above: Performed By: #### L [id number], ZAV806, AWJ153 #### Systems Security Analyst: SIERRA [phone]) [facility]) [address] [place] [address] Hemoglobin (Bld) [Mass/Vol] 13.1 g/dL Normal 13.0-18.0 [facility] Comment on above: Performed By: #### Minda [id number], ZUL941, TIP872 #### Systems Security Analyst: SIERRA GUERRA ([phone]) [facility]) [address] [place] [address] Lymphocytes (Bld) [#/Vol] 1.2 10*3/uL Normal 1.0-4.3 [facility] Comment on above: Performed By: #### Minda [id number], LSU881, SPP788 #### Systems Security Analyst: SIERRA GUERRA ([phone]) [facility]) [address] [place] [address] Lymphocytes/100 WBC (Bld) 26.6 % Normal 20.0-40.0 [facility] Comment on above: Performed By: #### Minda [id number], USC200, UGI513 #### Systems Security Analyst: SIERRA GUERRA ([phone]) [facility] ([facility]) [address] [place] [address] MCH (RBC) [Entitic mass] 29.3 pg Normal 26.0-34.0 [facility] Comment on above: Performed By: #### Minda [id number], LJM982, YSK401 #### Systems Security Analyst: SIERRA GUERRA ([phone]) [facility]) [address] [place] [address] MCV (RBC) [Entitic vol] 85.7 fL Normal 80.0-98.0 [facility] Comment on above: Performed By: #### L [id number], WAK075, JDU410 #### Systems Security Analyst: SIERRA GUERRA ([phone]) [facility]) [address] [place] [address] Monocytes (Bld) [#/Vol] 0.5 10*3/uL Normal 0.0-0.8 [facility] Comment on above: Performed By: #### L [id number], YGO230, DPZ710 #### Systems Security Analyst: SIERRA GUERRA ([phone]) [facility] ([facility]) [address] [place] [address] Monocytes/100 WBC (Bld) 11.2 % High 2.0-10.0 [facility] Comment on above: Performed By: #### L [id number], WML065, NUL645 #### Systems Security Analyst: SIERRA GUERRA ([id number]) [facility] ([facility]) [address] [place] [address] Neutrophils (Bld) [#/Vol] 2.4 10*3/uL Normal 1.8-7.0 [facility] Comment on above: Performed By: #### L [id number], IFG567, NBX024 #### Systems Security Analyst: SIERRA GUERRA ([phone]) [facility] ([facility]) [address] [place] [address] Neutrophils/100 WBC (Bld) 54.8 % Normal 40.0-80.0 [facility] Comment on above: Performed By: #### Minda [id number], UEE435, OMQ390 #### Systems Security Analyst: SIERRA GUERRA ([phone]) [facility]) [address] [place] [address] NRBC (PER 100 WBCS) BY AUTOMATED COUNT 0.0 /100 WBCs Normal 0.0-2.0 [facility] Comment on above: Performed By: #### L [id number], ADX582, YVX387 #### Systems Security Analyst: SIERRA GUERRA ([phone]) [facility] ([facility]) [address] [place] [address] Platelet mean volume (Bld) [Entitic vol] 7.9 fL Normal 7.4-12.4 [facility] Comment on above: Performed By: #### L [id number], WUV551, EWO508 #### Systems Security Analyst: SIERRA GUERRA ([phone]) [facility]) [address] [place] [address] [place] Platelets (Bld) [#/Vol] 175 10*3/uL Normal 140-440 [facility] Comment on above: Performed By: #### L [id number], SRQ860, HLN458 #### Systems Security Analyst: SIERRA GUERRA ([phone]) [facility] ([facility]) [address] [place] [address] RBC (Bld) [#/Vol] 4.47 10*6/uL Normal 4.40-5.90 [facility] Comment on above: Performed By: #### L [id number], WEO509, CAJ649 #### Systems Security Analyst: SIERRA GUERRA ([phone]) [facility] ([facility]) [address] [place] [address] WBC (Bld) [#/Vol] 4.4 10*3/uL Normal 3.6-10.7 [facility] Comment on above: Performed By: #### L [id number], TAU689, VNL758 #### Systems Security Analyst: SIERRA GUERRA ([phone]) [facility] ([facility]) [address] [place] [address] COMPREHENSIVE METABOLIC PANE Pavel 06-17-2023 Albumin [Mass/Vol] 3.6 g/dL Normal 3.5-5.0 [facility] Comment on above: Performed By: #### L [id number] ####Systems Security Analyst: SIERRA GUERRA ([phone])[facility] ([facility])[address] [place] [address] ALP [Catalytic activity/Vol] 75 U/L Normal 38-126 [facility] Comment on above: Performed By: #### L [id number] ####Systems Security Analyst: SIERRA GUERRA ([phone])[facility] ([facility])[address] [place] [address] ALT [Catalytic activity/Vol] 17 U/L Normal 0-49 [facility] Comment on above: Performed By: #### L [id number] ####Systems Security Analyst: SIERRA GUERRA ([phone])[facility] ([facility])[address] [place] [address] [place] Anion gap [Moles/Vol] 4 mmol/L Normal 3-13 [facility] Comment on above: Performed By: #### L [id number] ####Systems Security Analyst: SIERRA GUERRA ([phone])[facility] ([facility])[address] [place] [address] AST [Catalytic activity/Vol] 26 U/L Normal 15-46 [facility] Comment on above: Performed By: #### L [id number] ####Systems Security Analyst: SIERRA GUERRA ([phone])[facility] ([facility])[address] [place] [address] Bilirubin [Mass/Vol] 0.5 mg/dL Normal 0.2-1.3 [facility] Comment on above: Performed By: #### L [id number] ####Systems Security Analyst: SIERRA GUERRA ([phone])[facility] ([facility])[address] [place] [address] Calcium [Mass/Vol] 8.4 mg/dL Normal 8.4-10.4 [facility] Comment on above: Performed By: #### L [id number] ####Systems Security Analyst: SIERRA GUERRA ([phone])[facility] ([facility])[address] [place] [address] [place] Chloride [Moles/Vol] 107 mmol/L Normal 98-107 [facility] Comment on above: Performed By: #### L [id number] ####Systems Security Analyst: SIERRA GUERRA ([phone])[facility] ([facility])[address] [place] [address] [place] CO2 [Moles/Vol] 23 mmol/L Normal 22-30 [facility] Comment on above: Performed By: #### L [id number] ####Systems Security Analyst: SIERRA GUERRA ([phone])[facility] ([facility])[address] [place] [address] [place] Creatinine [Mass/Vol] 0.92 mg/dL Normal 0.66-1.25 [facility] Comment on above: Performed By: #### L [id number] ####Systems Security Analyst: SIERRA GUERRA ([phone])[facility])[address] [place] [address] GLOMERULAR FILTRATION RATE ML/MIN/1.73 SQ M.PREDICTED 88.9 mL/min/1.73m*2 Normal >60.0 [facility] Comment on above: Result Comment: Calc ulation based on the Chronic Kidney Disease Epidemiology Collaboration (CKD-EPI) equation refit without adjustment for race Performed By: #### L [id number] ####Systems Security Analyst: SIERRA GUERRA ([phone])[facility] ([facility])[address] [place] [address] Glucose [Mass/Vol] 94 mg/dL Normal 70-100 [facility] Comment on above: Performed By: #### L [id number] ####Systems Security Analyst: SIERRA GUERRA ([phone])[facility])[address] [place] [address] Potassium [Moles/Vol] 4.0 mmol/L Normal 3.5-5.1 [facility] Comment on above: Performed By: #### L [id number] ####Systems Security Analyst: SIERRA GUERRA ([id number])[facility] ([facility])[address] [place] [address] Protein [Mass/Vol] 7.4 g/dL Normal 6.3-8.2 [facility] Comment on above: Performed By: #### L [id number] ####Systems Security Analyst: SIERRA GUERRA ([phone])[facility] ([facility])[address] [place] [address] Sodium [Moles/Vol] 134 mmol/L Low 135-145 [facility] Comment on above: Performed By: #### L [id number] ####Systems Security Analyst: SIERRA GUERRA ([phone])[facility])[address] [place] [address] [place] Urea nitrogen [Mass/Vol] 19 mg/dL Normal 9-20 [facility] Comment on above: Performed By: #### L [id number] ####Systems Security Analyst: SIERRA GUERRA ([phone])[facility])[address] [place] [address] [place] CRYPTOCOCCAL ANTIGEN, CSFon 06-17-2023 CRYPTOCOCCAL ANTIGEN, CSF CRYPTOCCOCAL ANTIGEN, CSF Reference Not Detected Not Detected ORDER COMMENTS: Positive Cryptococcal antigens will be reflexed to titer. Additional charges apply. Methodology: Enzyme Immunoassay Normal [facility] Comment on above: Performed By: #### L [id number], [id number], HRE821 ####Systems Security Analyst: SIERRA GUERRA ([phone])[facility])[address] [place] [address] CULTURE, AEROBIC BACTERIA WI TH GRAM STAINon 06-17-2023 CULTURE, AEROBIC BACTERIA WITH GRAM STAIN CULTURE Reference No growth at 4 days GRAM STAIN RESULT Reference No polymorphonuclear leukocytes seen No organisms seen [ S = SUSCEPTIBLE R = RESISTANT I = INTERMEDIATE S-DD = Susceptible-dose dependent NS = Non-susceptible NO = No Interpretation ] Normal [facility] Comment on above: Performed By: #### L [id number], [id number], [id number] #### Systems Security Analyst: SIERRA GUERRA ([phone]) [facility] ([facility]) [address] [place] [address] Comprehensive metabolic 1998 panelon 06-17-2023 Albumin [Mass/Vol] 3.6 g/dL 3.5 - 5.0 g/dL [facility] ALP [Catalytic activity/Vol] 75 U/L 38 - 126 U/L [facility] ALT [Catalytic activity/Vol] 17 U/L 0 - 49 U/L [facility] Anion gap [Moles/Vol] 4 mmol/L 3 - 13 mmol/L [facility] AST [Catalytic activity/Vol] 26 U/L 15 - 46 U/L [facility] Bilirubin [Mass/Vol] 0.5 mg/dL 0.2 - 1 .3 mg/dL [facility] Calcium [Mass/Vol] 8.4 mg/dL 8.4 - 10. 4 mg/dL [facility] Chloride [Moles/Vol] 107 mmol/L 98 - 10 7 mmol/L [facility] CO2 [Moles/Vol] 23 mmol/L 22 - 30 mmol/L [facility] Creatinine [Mass/Vol] 0.92 mg/dL 0.66 - 1.25 mg/dL [facility] GFR/1.73 sq M.predicted MDRD (S/P/Bld) [Vol rate/Area] 88.9 mL/min/{1.73_m2} - PINF [facility] Comment on above: Calculation based on the Chronic Kidney Disease Epidemiology Collaboration (CKD-EPI) equation refit without adjustment for race Glucose [Mass/Vol] 94 mg/dL 70 - 100 mg/dL [facility] Interpretation and review of laboratory results Abnormal [facility] Potassium [Moles/Vol] 4.0 mmol/L 3.5 - 5.1 mmol/L [facility] Protein [Mass/Vol] 7.4 g/dL 6.3 - 8.2 g/dL [facility] Sodium [Moles/Vol] 134 mmol/L Low 135 - 145 mmol/L [facility] Urea nitrogen [Mass/Vol] 19 mg/dL 9 - 20 mg/d L [facility] Cryptococcus sp Ag IA.rapid Ql (CSF)on 06-17-2023 Cryptococcus sp Ag IA Ql (CSF) Not detected Not Detected [facility] Interpretation and review of laboratory results Normal [facility] Positive Cryptococcal antigens will be reflexed to titer. Additional charges apply. Methodology: Enzyme Immunoassay [facility] FUNGAL CULTUREon 06-17-2023 FUNGAL CULTURE FUNGAL CULTURE Reference No fungus isolated after 21 days [ S = SUSCEPTIBLE R = RESISTANT I = INTERMEDIATE S-DD = Susceptible-dose dependent NS = Non-susceptible NO = No Interpretation ] Normal [facility] Comment on above: Performed By: #### L [id number], OGK392, [id number] #### Systems Security Analyst: SIERRA GUERRA ([phone]) [address] FUNGAL STAINon 06-17-2023 FUNGAL STAIN FUNGAL STAIN Reference No fungal elements seen ORDER COMMENTS: Reference Range: No fungal elements seen [ S = SUSCEPTIBLE R = RESISTANT I = INTERMEDIATE S-DD = Susceptible-dose dependent NS = Non-susceptible NO = No Interpretation ] Normal [facility] Comment on above: Performed By: #### L [id number], PBD747, SAP694 #### Systems Security Analyst: SIERRA GUERRA ([phone]) [facility]) [address] [place] [address] GLUCOSE, CSFon 06-17-2023 GLUCOSE, CSF 55 mg/dL Normal 40-70 [facility] Comment on above: Performed By: #### L [id number], UKS231 ####Systems Security Analyst: SIERRA GUERRA ([phone])[facility] ([facility])[address] [place] [address] HIV 1+2 Ab+HIV1 p24 Ag IA Ql Ordered By: Cr Leija on 06-17-2023 Interpretation and review of laboratory results Normal [facility] Laboratory - Chemistry and C hemistry - challengeOrdered By: Naomy Vargas on 06-17-2023 Glucose (CSF) [Mass/Vol] 55 mg/dL 40 - 70 mg/ dL [facility] - Chemistry and C hemistry - challengeon 06-17-2023 Protein (CSF) [Mass/Vol] 36.1 mg/dL 12. 0 - 60.0 mg/dL [facility] - Hematology and Cell countson 06-17-2023 RBC Manual cnt (CSF) [#/Vol] 0 /mm3 [facility] WBC Manual cnt (CSF) [#/Vol] 1 /mm3 NINF - 5 /mm3 [facility] RBC Manual cnt (CSF) [#/Vol] 1 /mm3 [facility] WBC Manual cnt (CSF) [#/Vol] 1 /mm3 NINF - 5 /mm3 [facility] - Microbiology an d Antimicrobial susceptibilityOrdered By: Cr Leija on 06-17-2023 HIV 1+2 Ab+HIV1 p24 Ag IA Ql Non-Reactive Nonreactive [facility] Comment on above: The specimen was non -reactive for HIV-1 and HIV-2 antibodies and p24 antigen using an FDA-cleared 4th generation HIV test. Based on this non-reactive screen result, further reflexive testing was not indicated and was, therefore, not performed. 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 Tube number Nom (CSF) [ID] Tube 4 [facility] Appearance (CSF) Clear and Colorless [facility] Appearance (Spun CSF) [facility] Comment on above: Centrifugation not p ossible, due to Probable Prion Disease Protocol. Tube number Nom (CSF) [ID] Tube 1 [facility] Appearance (CSF) Clear and Colorless [facility] Laboratory - Specimen inform ationOrdered By: Naomy Vargas on 06-17-2023 Appearance (CSF) Clear and Colorless [facility] MENINGITIS/ENCEPHALITIS PCR PANELon 06-17-2023 MENINGITIS/ENCEPHALITIS PCR PANEL ESCHERICHIA COLI K1 CSF Reference Not Detected Not Detected HAEMOPHILUS INFLUENZAE CSF Reference Not Detected Not Detected LISTERIA MONOCYTOGENES CSF Reference Not Detected Not Detected NEISSERIA MENINGITIDIS CSF Reference Not Detected Not Detected STREPTOCOCCUS AGALACTIAE CSF Reference Not Detected Not Detected STREPTOCOCCUS PNEUMONIAE CSF Reference Not Detected Not Detected CYTOMEGALOVIRUS CSF Reference Not Detected Not Detected ENTEROVIRUS CSF Reference Not Detected Not Detected HERPES SIMPLEX VIRUS 1 CSF Reference Not Detected Not Detected HERPES SIMPLEX VIRUS 2 CSF Reference Not Detected Not Detected HUMAN HERPESVIRUS 6 CSF Reference Not Detected Not Detected HUMAN PARECHOVIRUS CSF Reference Not Detected Not Detected VARICELLA ZOSTER VIRUS CSF Reference Not Detected Not Detected CRYPTOCOCCUS NEOFORMANS/GATTII CSF Reference Not Detected Not Detected ORDER COMMENTS: Methodology: Multiplex PCR Normal [facility] Comment on above: Performed By: #### L [id number], [id number], [id number] #### Systems Security Analyst: SIERRA GUERRA ([phone]) [facility] ([address] Meningitis+Encephalitis path ogens DNA and RNA panel PABLO+non-probe (CSF)Ordered By: Nataliya Frances on 06-17-2023 Cryptococcus neoformans/gattii Not detected Not Detected [facility] Cytomegalovirus Not detected Not Detected [facility] Enterovirus Not detected Not Detected [facility] Escherichia coli K1 Not detected Not Detected S [facility] Haemophilus influenzae Not detected Not Detecte d [facility] Herpes simplex virus 1 Not detected Not Detecte d [facility] Herpes simplex virus 2 Not detected Not Detecte d [facility] Human herpesvirus 6 Not detected Not Detected [facility] Human parechovirus Not detected Not Detected [facility] Interpretation and review of laboratory results Normal [facility] Listeria monocytogenes Not detected Not Detecte d [facility] Neisseria meningitidis Not detected Not Detecte d [facility] S. agalactiae Org specific cx Ql (Vag fld) Not detected Not Detected [facility]alth Streptococcus pneumoniae Not detected Not Detec zabrina [facility] Varicella zoster virus Not detected Not Detecte d [facility] Methodology: Multiplex PCR [facility] No Panel Informationon 06-17 [facility] SUPERNATANT Clear and Colorless [facility] Tube 1 [facility] Technically successful uncomplicated fluoroscopically-carlos ded lumbar puncture. Report Dictated on Electronically Signed By: Abraham Deng MD Electronically Signed Date/Time: 06/17/2023 2:01 PM EST [facility] Patient Name: CORY MUELLER : 1950 Exam Date/Time: 06/17/2023 13:22 Procedure: IR LUMBAR PUNCTURE Ordering Provider: HAY AMY Reason For Exam: ams, unclear cause EXAMINATION: Fluoroscopically-carlos ded lumbar puncture. EXAM DATE & TIME: 06/17/2023 1:22 PM EST INDICATION: ams, unclear cause ADDITIONAL INFORMATION: 72-year-old female with altered mental status of unclear cause presents for fluoroscopically guided lumbar puncture COMPARISON: None INFORMED CONSENT: Written informed consent was obtained. The procedure, risks, benefits, and alternatives were discussed. All questions were answered. TIMEOUT: Physician-led timeout was conducted documenting correct patient, procedure, site, fire risk, antibiotics and allergies. COMPLICATIONS: None. ESTIMATED BLOOD LOSS: Less than 10 mL. MEDICATIONS: Antibiotics: None. Contrast dose: None. STERILE TECHNIQUE: All elements of maximal sterile technique were applied: cap, mask, sterile gown, proper hand hygiene including sterile gloves, a large sterile sheet, and hospital-approved cutaneous antisepsis at the site (Betadine solution). ANESTHESIA/SEDATION: Local. FLUOROSCOPY: Fluoroscopy time: 0.4 minutes Fluoroscopy dose: Ka,r = 1.85 mGy Angiographic runs: 0 Fluoroscopic spot images: 0 Fluoroscopic saved images were obtained. These images do NOT add additional exposure to ionizing radiation and were captured electronically from the imaging chain. Dose reduction fluoroscopic and/or angiographic technology was employed. PROCEDURE/TECHNIQUE: The patient was placed in the prone position on the fluoroscopic table. The L3-L4 interspace was localized fluoroscopically and the skin overlying the L3-L4 region was prepped and draped in the usual aseptic fashion. Local anesthesia was achieved with 1% lidocaine solution. The L3-L4 space was then accessed with a 20-gauge spinal needle. A fluoroscopic image documenting appropriate needle position was saved. Four tubes of colorless, transparent CSF were obtained, with at least 2 mL in each tube for a total of 12 mL. The needle was removed and a sterile dressing was applied. The patient tolerated the procedure well without immediate complication and was transferred from the interventional suite in stable condition. FINDINGS: A saved fluoroscopic image demonstrates the needle tip projecting over the L3-L4 interspace. [facility] Abraham Deng MD - 06/17/2023 Patient Name: CORY MUELLER : 1950 Exam Date/Time: 06/17/2023 13:22 Procedure: IR LUMBAR PUNCTURE Ordering Provider: HAY AMY Reason For Exam: ams, unclear cause EXAMINATION: Fluoroscopically-carlos ded lumbar puncture. EXAM DATE & TIME: 06/17/2023 1:22 PM EST INDICATION: ams, unclear cause ADDITIONAL INFORMATION: 72-year-old female with altered mental status of unclear cause presents for fluoroscopically guided lumbar puncture COMPARISON: None INFORMED CONSENT: Written informed consent was obtained. The procedure, risks, benefits, and alternatives were discussed. All questions were answered. TIMEOUT: Physician-led timeout was conducted documenting correct patient, procedure, site, fire risk, antibiotics and allergies. COMPLICATIONS: None. ESTIMATED BLOOD LOSS: Less than 10 mL. MEDICATIONS: Antibiotics: None. Contrast dose: None. STERILE TECHNIQUE: All elements of maximal sterile technique were applied: cap, mask, sterile gown, proper hand hygiene including sterile gloves, a large sterile sheet, and hospital-approved cutaneous antisepsis at the site (Betadine solution). ANESTHESIA/SEDATION: Local. FLUOROSCOPY: Fluoroscopy time: 0.4 minutes Fluoroscopy dose: Ka,r = 1.85 mGy Angiographic runs: 0 Fluoroscopic spot images: 0 Fluoroscopic saved images were obtained. These images do NOT add additional exposure to ionizing radiation and were captured electronically from the imaging chain. Dose reduction fluoroscopic and/or angiographic technology was employed. PROCEDURE/TECHNIQUE: The patient was placed in the prone position on the fluoroscopic table. The L3-L4 interspace was localized fluoroscopically and the skin overlying the L3-L4 region was prepped and draped in the usual aseptic fashion. Local anesthesia was achieved with 1% lidocaine solution. The L3-L4 space was then accessed with a 20-gauge spinal needle. A fluoroscopic image documenting appropriate needle position was saved. Four tubes of colorless, transparent CSF were obtained, with at least 2 mL in each tube for a total of 12 mL. The needle was removed and a sterile dressing was applied. The patient tolerated the procedure well without immediate complication and was transferred from the interventional suite in stable condition. FINDINGS: A saved fluoroscopic image demonstrates the needle tip projecting over the L3-L4 interspace. IMPRESSION: Technically successful uncomplicated fluoroscopically-carlos ded lumbar puncture. Report Dictated on Electronically Signed By: Abraham Deng MD Electronically Signed Date/Time: 06/17/2023 2:01 PM EST [facility] Radiology Study observation (narrative) [facility] No Panel InformationOrdered By: Naomy Vargas on 06-17-2023 SUPERNATANT Clear and Colorless [facility] Tube 1 [facility] Nursing Noteon 06-17-2023 Nursing Note Patient arrived from , Dr. Hany Deng was in to speak with the patient regarding LP, consent was obtained. Patient was placed prone on exam table prepped and draped in sterile fashion. 12cc of clear CSF was collected for labs. Patient tolerated procedure well. Transferring to . . Normal [facility] PROTEIN, CSFon 06-17-2023 Appearance (U) Clear and Colorless Normal S [facility] Comment on above: Performed By: #### L [id number], [id number] ####Systems Security Analyst: SIERRA GUERRA ([phone])[address] PROTEIN, CSF 36.1 mg/dL Normal 12.0-60.0 [facility] Comment on above: Performed By: #### L [id number], [id number] ####Systems Security Analyst: SIERRA GUERRA ([phone])[facility])[address] SUPERNATANT Clear and Colorless Normal [facility] Comment on above: Result Comment: ORDER COMMENTS: Tube 1 Performed By: #### L [id number], [id number] ####Systems Security Analyst: SIERRA GUERRA ([phone])[facility] ([facility])[address] [place] [address] Result Comment: FOX R COMMENTS: Tube 1 Progress Noteon 06-17-2023 Progress Note Nutrition Assessment Type and Reason for Visit: Initial, RD Nutrition Re-Screen/LOS (Cachexia) Nutrition Recommendations/Plan : Continue with Regular PO diet as ordered, [...] lacking in chart) Context: Acute Illness (vs social/environmental ?, pt is a limited historian; hx of [...] Accumulation: No significant fluid accumulation (per chart) [employer] Strength: Not Performed Nutrition Assessment: Pt with noted use of tobacco and EtOH without other PMH noted/indicated presented with confusion; per chart, pt was brought in on 06/13 by EMS from [facility], pt had reported being at home watching TV when he found himself somehow on a bus and ended up at [facility], pt cannot remember why he got on [...] in room and noted eggs, sausage and lao toast were sent, reports eating well here, [...] (kg): 65.3 kg Total Energy Requirements (kcals/day): 1838-5631 kcal/day (28-30 kcal/kg) Weight Used for Protein Requirements: Current Weight in Kg Used for Protein Requirements: 65.3 kg Estimated Total Protein (g/day): 65-78 gm protein/day (1.0-1.2 gm protein/kg) Estimated Daily Total Fluid (ml/day): per MD Nutrition Related Findings: pt appears better oriented today; +BS, last BM 06/16; No edema indicated; medications and labs reviewed Wound Type: None (Vishal 19) Curr (more content not included)... Normal [facility] Progress Note [facility] Geriatric Medicine Inpatient Consult [...] --No antipsychotic unless patient is danger to self/others/treatmen t --Continue scheduled melatonin at HS --Monitor for [...] abnormality. --Recommend outpatient follow up at [facility] ([facility]) for more in depth [...] the [place] [address] [facility]. Pt states that he lives in [place]. Pt states that he remembers getting on the bus this morning. Pt states that he is not sure where he was going when he got on the bus. Pt states that he does not remember much from today. Geriatrics consulted for Episode of confusion and wondering to [employer], unclear etiology. MMSE 20. Concerns for safety at home HPI- The patient is new to me but seen by the Geriatric Inpatient Consult team. 72 y.o. year-old male admitted to acute care from home for confusion. Per H&P, patient was brought from [facility] by EMS. He was supposedly at home watching TV and somehow found himself on the bus and ended up at [facility]. Diagnosed with an amnestic event. Per chart [...] nervous awaiting his results from testing this a (more content not included)... Normal [facility] Progress Note Attestation signed by Sierra Hay MD at 06/17/2023 3:35 PM I have discussed the care of [...] tobacco. 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 EEG done was negative Plan today is for LP, but doubt any infectious cause of confusion Team will still attempt to find his sister. May need help from [employer] in Protective services. Will need SW assistance regarding dispo. May need competency eval by Geriatrics and ?guardianship 7AM-5PM: contact resident on [facility] Med A team (found by hoovering over [...] results to the patient, and coordinating care. Med Team Progress Note Cory Mueller : 1950(72 y.o.) Date: June 17, 2023 Med Team: A Attending: Dr. Hay [...] for headaches. Negative for dizziness and light-headedness. Psychiatric/Behavior al: Positive for confusion. Negative for agitation. Scheduled [...] Patient Position: Lying) Pulse 66 Temp 36.4 ?C (97.6 ?F) (Temporal) Resp 20 Ht 6' 0.01 (1.829 m) Wt 107 lb 5.8 oz (48.7 kg) SpO2 98% BMI 14.56 kg/m? Physical Exam Vitals reviewed. [...] Final Hemoglobin Date Value Ref Range Status (more content not included)... Normal [facility] Reagin Ab RPR Ql (S)Ordered By: Zacahriah Sullivan on 06-17-2023 Interpretation and review of laboratory results Normal [facility] SPINAL FLUID CELL COUNTon APPEARANCE CEREBRAL SPINAL FLUID Clear and Colorless Normal [facility] Comment on above: Performed By: #### L [id number] ####Systems Security Analyst: SIERRA GUERRA ([phone])[facility] ([facility])[address] [place] [address] APPEARANCE OF SUPERNATANT CEREBRAL SPINAL FLUID Normal [facility] Comment on above: Result Comment: Cent rifugation not possible, due to Probable Prion Disease Protocol. Performed By: #### L [id number] ####Systems Security Analyst: SIERRA GUERRA ([phone])[facility] ([facility])[address] [place] [address] [place] ERYTHROCYTES (#/MM3) IN CEREBRAL SPINAL FLUID 1 /mm3 Normal [facility] Comment on above: Performed By: #### L [id number] ####Systems Security Analyst: SIERRA GUERRA ([phone])[facility] ([facility])[address] [place] [address] [place] ERYTHROCYTES (#/MM3) IN CEREBRAL SPINAL FLUID 0 /mm3 Normal [facility] Comment on above: Performed By: #### L [id number] ####Systems Security Analyst: SIERRA GUERRA ([phone])[facility] ([facility])[address] [place] [address] [place] LEUKOCYTES (#/MM3) IN CEREBRAL SPINAL FLUID 1 /mm3 Normal <5 [facility] Comment on above: Performed By: #### L [id number] ####Systems Security Analyst: SIERRA GUERRA ([phone])[facility] ([facility])[address] [place] [address] TUBE NUMBER OF CEREBRAL SPINAL FLUID Tube 1 Normal [facility] Comment on above: Performed By: #### L [id number] ####Systems Security Analyst: SIERRA [phone])[facility] ([facility])[address] TUBE NUMBER OF CEREBRAL SPINAL FLUID Tube 4 Normal [facility] Comment on above: Performed By: #### L [id number] ####Systems Security Analyst: SIERRA GUERRA ([phone])[facility] ([facility])[address] VDRL CSF WITH REFLEXon 06-17 VDRL W/ REFLEX, CSF Non-Reactive Normal Non Reactive S [facility] Comment on above: Result Comment: Because the VDRL was Non Reactive, the VDRL titer was not performed. Performed By: [facility] [address] [place] [address] Industrial Maintenance Manager: Dany Mcmahan MD, PhD CLIA Number: [id number] Performed By: #### L [id number], [id number] ####[employer] [facility] ([facility])[address] [place] [address] [facility] [place] [place] [facility] IGM, CSFon 05-21 [place] [facility] IGM, CSF 0.00 IV Normal <=0.89 [facility] Comment on above: Result Comment: INTE RPRETIVE INFORMATION: West Nile Virus Ab IgM by DARNELL, CSF 0.89 IV or less ...... Negative - No significant level of West Nile virus IgM antibody detected. 0.90-1.10 IV ......... Equivocal - Questionable presence of West Nile virus IgM antibody detected. Repeat testing in 10-14 days may be helpful. 1.11 IV or greater ... Positive - Presence of IgM antibody to West Nile virus detected, suggestive of current or recent infection. This test is intended to be used as a semi-quantitative means of detecting West Nile virus-specific IgM in CSF samples in which there is a clinical suspicion of West Nile virus infection. This test should not be used solely for quantitative purposes, nor should the results be used without correlation to clinical history or other data. Because other members of the Flaviviridae family, such as [place] encephalitis virus, show extensive cross-reactivity with West Nile virus, serologic testing specific for these species should be considered. The detection of antibodies to West Nile virus in cerebrospinal fluid may indicate central nervous system infection. However, consideration must be given to possible contamination by blood or transfer of serum antibodies across the blood-brain barrier. This test was developed and its performance characteristics determined by [facility]. It has not been cleared or approved by the [place] Food and Drug Administration. This test was performed in a CLIA certified laboratory and is intended for clinical purposes. Performed By: [facility] [place] [address] Industrial Maintenance Manager: Dany Mcmahan MD, PhD CLIA Number: [id number] Performed By: #### L [id number], [id number] ####[facility] ([facility])[address] [place] [id number] [place] CBC W Auto Differential pane l (Bld)Ordered By: Nick Pinzon on 06-16-2023 Basophils (Bld) [#/Vol] 0.1 10*3/uL 0.0 - 0.2 10*3/uL adjust [facility] Basophils/100 WBC (Bld) 1.4 % 0.0 - 2.0 % adjust [facility] Eosinophils (Bld) [#/Vol] 0.3 10*3/uL 0.0 - 0.5 10*3/uL adjust [facility] Eosinophils/100 WBC (Bld) 6.8 % High 1.0 - 6.0 % adjust [facility] Erythrocyte distribution width (RBC) [Ratio] 14.5 % 11.5 - 14.5 % adjust [facility] Hematocrit (Bld) [Volume fraction] 38.9 % Low 40.0 - 52.0 % adjust [facility] Hemoglobin (Bld) [Mass/Vol] 13.3 g/dL 13.0 - 18.0 g/dL [facility] Interpretation and review of laboratory results Abnormal adjust [facility] Lymphocytes (Bld) [#/Vol] 1.1 10*3/uL 1.0 - 4.3 10*3/uL adjust [facility] Lymphocytes/100 WBC (Bld) 28.2 % 20.0 - 40.0 % adjust [facility] MCH (RBC) [Entitic mass] 29.1 pg 26.0 - 34.0 pg adjust [facility] MCHC (RBC) [Mass/Vol] 34.2 % 32.0 - 36.0 % adjust [facility] MCV (RBC) [Entitic vol] 84.9 fL 80.0 - 98.0 fL [facility] Monocytes (Bld) [#/Vol] 0.5 10*3/uL 0.0 - 0.8 10*3/uL [facility] Monocytes/100 WBC (Bld) 13.5 % High 2.0 - 10.0 % [facility] Neutrophils (Bld) [#/Vol] 1.9 10*3/uL 1.8 - 7.0 10*3/uL [facility] Neutrophils/100 WBC (Bld) 50.1 % 40.0 - 80.0 % [facility] Nucleated RBC/100 WBC (Bld) [Ratio] 0.0 % [facility] Platelet mean volume (Bld) [Entitic vol] 8.4 fL 7.4 - 12.4 fL [facility] Platelets (Bld) [#/Vol] 179 10*3/uL 140 - 440 10*3/uL [facility] RBC (Bld) [#/Vol] 4.58 10*6/uL 4.40 - 5.9 0 10*6/uL [facility] WBC (Bld) [#/Vol] 3.7 10*3/uL 3.6 - 10.7 10*3/uL [facility] CBC WITH AUTO DIFFERENTIALon 06-16-2023 Basophils (Bld) [#/Vol] 0.1 10*3/uL Normal 0.0-0.2 [facility] Comment on above: Performed By: #### L [id number] ####Systems Security Analyst: SIERRA [id number])[facility] ([facility])[address] [place] [address] Basophils/100 WBC (Bld) 1.4 % Normal 0.0-2.0 [facility] Comment on above: Performed By: #### L [id number] ####Systems Security Analyst: SIERRA [id number])[facility] ([facility])[address] [place] [address] Eosinophils (Bld) [#/Vol] 0.3 10*3/uL Normal 0.0-0.5 [facility] Comment on above: Performed By: #### L [id number] ####Systems Security Analyst: SIERRA [phone])[facility])[address] [place] [address] Eosinophils/100 WBC (Bld) 6.8 % High 1.0-6.0 [facility] Comment on above: Performed By: #### L [id number] ####Systems Security Analyst: SIERRA GUERRA ([phone])[facility])[address] [place] [address] Erythrocyte distribution width (RBC) [Ratio] 14.5 % Normal 11.5-14.5 [facility] Comment on above: Performed By: #### L [id number] ####Systems Security Analyst: SIERRA GUERRA ([phone])[facility])[address] [place] [address] ERYTHROCYTE MEAN CORPUSCULAR HEMOGLOBIN CONCENTRATION (G/DL) BY AUTOMATED 34.2 % Normal 32.0-36.0 [facility] Comment on above: Performed By: #### L [id number] ####Systems Security Analyst: SIERRA GUERRA ([phone])[facility])[address] [place] [address] Hematocrit (Bld) [Volume fraction] 38.9 % Low 40.0-52.0 [facility] Comment on above: Performed By: #### L [id number] ####Systems Security Analyst: SIERRA GUERRA ([phone])[facility])[address] [place] [address] Hemoglobin (Bld) [Mass/Vol] 13.3 g/dL Normal 13.0-18.0 [facility] Comment on above: Performed By: #### L [id number] ####Systems Security Analyst: SIERRA GUERRA ([phone])[facility])[address] [place] [address] Lymphocytes (Bld) [#/Vol] 1.1 10*3/uL Normal 1.0-4.3 [facility] Comment on above: Performed By: #### L [id number] ####Systems Security Analyst: SIERRA GUERRA ([phone])[facility] [address] Lymphocytes/100 WBC (Bld) 28.2 % Normal 20.0-40.0 [facility] Comment on above: Performed By: #### L [id number] ####Systems Security Analyst: SIERRA GUERRA ([phone])[facility])[address] [place] [address] MCH (RBC) [Entitic mass] 29.1 pg Normal 26.0-34.0 [facility] Comment on above: Performed By: #### L [id number] ####Systems Security Analyst: SIERRA GUERRA ([phone])[facility])[address] [place] [address] MCV (RBC) [Entitic vol] 84.9 fL Normal 80.0-98.0 S [facility] Comment on above: Performed By: #### L [id number] ####Systems Security Analyst: SIERRA GUERRA ([phone])[facility])[address] [place] [address] Monocytes (Bld) [#/Vol] 0.5 10*3/uL Normal 0.0-0.8 [facility] Comment on above: Performed By: #### L [id number] ####Systems Security Analyst: SIERRA GUERRA ([phone])[facility])[address] [place] [address] Monocytes/100 WBC (Bld) 13.5 % High 2.0-10.0 S [facility] Comment on above: Performed By: #### L [id number] ####Systems Security Analyst: SIERRA GUERRA ([phone])[facility])[address] [place] [address] Neutrophils (Bld) [#/Vol] 1.9 10*3/uL Normal 1.8-7.0 [facility] Comment on above: Performed By: #### L [id number] ####Systems Security Analyst: SIERRA GUERRA ([phone])[facility])[address] [place] [address] Neutrophils/100 WBC (Bld) 50.1 % Normal 40.0-80.0 [facility] Comment on above: Performed By: #### L [id number] ####Systems Security Analyst: SIERRA GUERRA ([phone])[facility])[address] [place] [address] NRBC (PER 100 WBCS) BY AUTOMATED COUNT 0.0 /100 WBCs Normal 0.0-2.0 [facility] Comment on above: Performed By: #### L [id number] ####Systems Security Analyst: SIERRA GUERRA ([phone])[facility] ([facility])[address] [place] [address] Platelet mean volume (Bld) [Entitic vol] 8.4 fL Normal 7.4-12.4 [facility] Comment on above: Performed By: #### L [id number] ####Systems Security Analyst: SIERRA GUERRA ([phone])[facility])[address] [place] [address] Platelets (Bld) [#/Vol] 179 10*3/uL Normal 140-440 [facility] Comment on above: Performed By: #### L [id number] ####Systems Security Analyst: SIERRA GUERRA ([phone])[facility])[address] [place] [address] RBC (Bld) [#/Vol] 4.58 10*6/uL Normal 4.40-5.90 [facility] Comment on above: Performed By: #### L [id number] ####Systems Security Analyst: SIERRA GUERRA ([phone])[facility])[address] [place] [address] WBC (Bld) [#/Vol] 3.7 10*3/uL Normal 3.6-10.7 [facility] Comment on above: Performed By: #### L [id number] ####Systems Security Analyst: SIERRA GUERRA ([phone])[facility])[address] [place] [address] COMPREHENSIVE METABOLIC PANE Pavel 06-16-2023 Albumin [Mass/Vol] 3.7 g/dL Normal 3.5-5.0 [facility] Comment on above: Performed By: #### L [id number] ####Systems Security Analyst: SIERRA GUERRA ([phone])[facility] ([facility])[address] [place] [address] ALP [Catalytic activity/Vol] 74 U/L Normal 38-126 [facility] Comment on above: Performed By: #### L [id number] ####Systems Security Analyst: SIERRA GUERRA ([phone])[facility] ([facility])[address] [place] [address] ALT [Catalytic activity/Vol] 18 U/L Normal 0-49 [facility] Comment on above: Performed By: #### L [id number] ####Systems Security Analyst: SIERRA GUERRA ([phone])[facility] ([facility])[address] [place] [address] Anion gap [Moles/Vol] 5 mmol/L Normal 3-13 [facility] Comment on above: Performed By: #### L [id number] ####Systems Security Analyst: SIERRA GUERRA ([phone])[facility] ([facility])[address] [place] [address] AST [Catalytic activity/Vol] 29 U/L Normal 15-46 [facility] Comment on above: Performed By: #### L [id number] ####Systems Security Analyst: SIERRA GUERRA ([phone])[facility] ([facility])[address] [place] [address] Bilirubin [Mass/Vol] 0.4 mg/dL Normal 0.2-1.3 [facility] Comment on above: Performed By: #### L [id number] ####Systems Security Analyst: SIERRA GUERRA ([phone])[facility] ([facility])[address] [place] [address] Calcium [Mass/Vol] 8.5 mg/dL Normal 8.4-10.4 [facility] Comment on above: Performed By: #### L [id number] ####Systems Security Analyst: SIERRA GUERRA ([phone])[facility])[address] [place] [address] Chloride [Moles/Vol] 107 mmol/L Normal 98-107 [facility] Comment on above: Performed By: #### L [id number] ####Systems Security Analyst: SIERRA GUERRA ([phone])[facility] ([facility])[address] [place] [address] CO2 [Moles/Vol] 23 mmol/L Normal 22-30 [facility] Comment on above: Performed By: #### L [id number] ####Systems Security Analyst: SIERRA GUERRA ([phone])[facility] ([facility])[address] [place] [address] Creatinine [Mass/Vol] 0.92 mg/dL Normal 0.66-1.25 [facility] Comment on above: Performed By: #### L [id number] ####Systems Security Analyst: SIERRA GUERRA ([phone])[facility] ([facility])[address] [place] [address] GLOMERULAR FILTRATION RATE ML/MIN/1.73 SQ M.PREDICTED 88.9 mL/min/1.73m*2 Normal >60.0 [facility] Comment on above: Result Comment: Calc ulation based on the Chronic Kidney Disease Epidemiology Collaboration (CKD-EPI) equation refit without adjustment for race Performed By: #### L [id number] ####Systems Security Analyst: SIERRA GUERRA ([phone])[facility] ([facility])[address] [place] [address] Glucose [Mass/Vol] 92 mg/dL Normal 70-100 [facility] Comment on above: Performed By: #### L [id number] ####Systems Security Analyst: SIERRA GUERRA ([phone])[facility] ([facility])[address] [place] [address] Potassium [Moles/Vol] 4.2 mmol/L Normal 3.5-5.1 [facility] Comment on above: Performed By: #### L [id number] ####Systems Security Analyst: SIERRA [id number])[facility] ([facility])[address] [place] [address] Protein [Mass/Vol] 7.9 g/dL Normal 6.3-8.2 [facility] Comment on above: Performed By: #### L [id number] ####Systems Security Analyst: SIERRA GUERRA ([phone])[facility] ([facility])[address] [place] [address] Sodium [Moles/Vol] 135 mmol/L Normal 135-145 [facility] Comment on above: Performed By: #### L [id number] ####Systems Security Analyst: SIERRA GUERRA ([phone])[facility] ([facility])[address] [place] [address] Urea nitrogen [Mass/Vol] 20 mg/dL Normal 9-20 [facility] Comment on above: Performed By: #### L [id number] ####Systems Security Analyst: SIERRA GUERRA ([phone])[facility] ([facility])[address] [place] [address] Comprehensive metabolic 1998 panelon 06-16-2023 Albumin [Mass/Vol] 3.7 g/dL 3.5 - 5.0 g/dL [facility] ALP [Catalytic activity/Vol] 74 U/L 38 - 126 U/L [facility] ALT [Catalytic activity/Vol] 18 U/L 0 - 49 U/L [facility] Anion gap [Moles/Vol] 5 mmol/L 3 - 13 mmol/L [facility] AST [Catalytic activity/Vol] 29 U/L 15 - 46 U/L [facility] Bilirubin [Mass/Vol] 0.4 mg/dL 0.2 - 1 .3 mg/dL [facility] Calcium [Mass/Vol] 8.5 mg/dL 8.4 - 10. 4 mg/dL [facility] Chloride [Moles/Vol] 107 mmol/L 98 - 10 7 mmol/L [facility] CO2 [Moles/Vol] 23 mmol/L 22 - 30 mmol/L [facility] Creatinine [Mass/Vol] 0.92 mg/dL 0.66 - 1.25 mg/dL [facility] GFR/1.73 sq M.predicted MDRD (S/P/Bld) [Vol rate/Area] 88.9 mL/min/{1.73_m2} - PINF [facility] Comment on above: Calculation based on the Chronic Kidney Disease Epidemiology Collaboration (CKD-EPI) equation refit without adjustment for race Glucose [Mass/Vol] 92 mg/dL 70 - 100 mg/dL [facility] Interpretation and review of laboratory results Normal [facility] Potassium [Moles/Vol] 4.2 mmol/L 3.5 - 5.1 mmol/L [facility] Protein [Mass/Vol] 7.9 g/dL 6.3 - 8.2 g/dL [facility] Sodium [Moles/Vol] 135 mmol/L 135 - 145 mmol/L [facility] Urea nitrogen [Mass/Vol] 20 mg/dL 9 - 20 mg/d L [facility] No Panel Informationon 06-16 Francis Ferrer MD 06/16/2023 11:36 PM [facility] [address], [place] [id number] ROUTINE EEG REPORT Patient Name: Cory Mueller : 1950 Date of Study: 06/16/2023 Duration Recorded: 25 minutes EEG#: [id number] FLOODPLAIN MANAGER: Rosette Sánchez PROVIDER REQUESTING STUDY: Sierra Hay [...] observation and potential neurologic workup. MEDICATIONS: Current Facility-Administere d Medications Medication Dose Route Frequency Provider Last Rate Last Admin acetaminophen (Tylenol) tablet 650 mg 650 mg Oral q6h PRN Kenneth Solo DO 650 mg at 06/15/23 1416 acyclovir (Zovirax) 500 mg in sodium chloride 0.9 % 100 mL IVPB 10 mg/kg IntraVENous q8h Kenneth Granieri, DO folic acid (Folvite) tablet 1 mg 1 mg Oral Daily Bradley Millard MD 1 mg at 06/16/23 1058 melatonin tablet 5 mg 5 mg Oral Nightly Bradley Millard MD 5 mg at 06/15/23 2214 sodium chloride (Seward) 0.65 % nasal spray 1 spray 1 spray Each Nostril PRN Matty Bryson, DO thiamine (Vitamin B1) 250 mg in sodium chloride 0.9 % 100 mL IVPB 250 mg IntraVENous q24h Bradley Millard MD Stopped at 06/15/23 2244 TECHNICAL ASPECTS: This routine scalp EEG study with video was carried out at [facility]. Scalp electrodes were positioned in person by an production technologist, following patient education, according to the 10-20 International system of electrode placement and maintained for integrity and quality of the recording. EEG data with video was recorded continuously and digitally stored. The production technologist reviewed all automated detections and manual events [...] observed. Francis Ferrer MD, PHD Epilepsy Attending [facility] Progress Noteon 06-16-2023 Progress Note PHYSICAL THERAPY [facility] Name/MRN: Cory Mueller ([id number]) Date: 06/16/2023 PT eval attempted, but pt having continuous EEG in room. Will re-attempt at a later date. Shameka Minor PT Normal [facility] Progress Note Green slip in place by medical team. Patient is on medical hold and cannot leave AMA. Normal [facility] 25-hydroxyvitamin D3 [Mass/V ol]on 06-15-2023 Interpretation and review of laboratory results Abnormal [facility] Therapy is based on measurement of Total 25-OHD with the following classification levels: Less than 20 ng/mL: Indicative of Vit D deficiency 20-30 ng/mL: Suggests Vit D insufficiency Optimal: Greater than or equal to 30 ng/mL Test performed by Virtual DBS Competitive Immunoassay, measuring Total Vitamin D, not individual fractions. [facility] CBC W Auto Differential pane l (Bld)Ordered By: Vance Martinez on 06-15-2023 Basophils (Bld) [#/Vol] 0.0 10*3/uL 0.0 - 0.2 10*3/uL [facility] Basophils/100 WBC (Bld) 1.0 % 0.0 - 2.0 % [facility] Eosinophils (Bld) [#/Vol] 0.2 10*3/uL 0.0 - 0.5 10*3/uL [facility] Eosinophils/100 WBC (Bld) 5.8 % 1.0 - 6.0 % [facility] Erythrocyte distribution width (RBC) [Ratio] 14.6 % High 11.5 - 14.5 % [facility] Hematocrit (Bld) [Volume fraction] 41.6 % 40.0 - 52.0 % [facility] Hemoglobin (Bld) [Mass/Vol] 14.3 g/dL 13.0 - 18.0 g/dL [facility] Interpretation and review of laboratory results Abnormal [facility] Lymphocytes (Bld) [#/Vol] 1.1 10*3/uL 1.0 - 4.3 10*3/uL [facility] Lymphocytes/100 WBC (Bld) 26.4 % 20.0 - 40.0 % [facility] MCH (RBC) [Entitic mass] 29.5 pg 26.0 - 34.0 pg [facility] MCHC (RBC) [Mass/Vol] 34.4 % 32.0 - 36.0 % [facility] MCV (RBC) [Entitic vol] 85.5 fL 80.0 - 98.0 fL [facility] Monocytes (Bld) [#/Vol] 0.5 10*3/uL 0.0 - 0.8 10*3/uL [facility] Monocytes/100 WBC (Bld) 12.3 % High 2.0 - 10.0 % [facility] Neutrophils (Bld) [#/Vol] 2.2 10*3/uL 1.8 - 7.0 10*3/uL [facility] Neutrophils/100 WBC (Bld) 54.5 % 40.0 - 80.0 % [facility] Nucleated RBC/100 WBC (Bld) [Ratio] 0.1 % [facility] Platelet mean volume (Bld) [Entitic vol] 8.0 fL 7.4 - 12.4 fL [facility] Platelets (Bld) [#/Vol] 190 10*3/uL 140 - 440 10*3/uL [facility] RBC (Bld) [#/Vol] 4.86 10*6/uL 4.40 - 5.9 0 10*6/uL [facility] WBC (Bld) [#/Vol] 4.1 10*3/uL 3.6 - 10.7 10*3/uL [facility] CBC WITH AUTO DIFFERENTIALon 06-15-2023 Basophils (Bld) [#/Vol] 0.0 10*3/uL Normal 0.0-0.2 [facility] Comment on above: Performed By: #### L [id number], [id number], [id number] #### Systems Security Analyst: SIERRA GUERRA ([phone]) [facility] ([facility]) [address] [place] [address] Basophils/100 WBC (Bld) 1.0 % Normal 0.0-2.0 [facility] Comment on above: Performed By: #### L [id number], [id number], [id number] #### Systems Security Analyst: SIERRA GUERRA ([phone]) [facility] ([facility]) [address] [place] [address] Eosinophils (Bld) [#/Vol] 0.2 10*3/uL Normal 0.0-0.5 [facility] Comment on above: Performed By: #### L [id number], [id number], [id number] #### Systems Security Analyst: SIERRA GUERRA ([phone]) [facility] ([facility]) [address] [place] [address] Eosinophils/100 WBC (Bld) 5.8 % Normal 1.0-6.0 [facility] Comment on above: Performed By: #### L [id number], CFW848, RGM415 #### Systems Security Analyst: SIERRA GUERRA ([phone]) [facility] ([facility]) [address] [place] [address] Erythrocyte distribution width (RBC) [Ratio] 14.6 % High 11.5-14.5 [facility] Comment on above: Performed By: #### L [id number], [id number], YFJ141 #### Systems Security Analyst: SIERRA GUERRA ([phone]) [facility] ([facility]) [address] [place] [address] ERYTHROCYTE MEAN CORPUSCULAR HEMOGLOBIN CONCENTRATION (G/DL) BY AUTOMATED 34.4 % Normal 32.0-36.0 [facility] Comment on above: Performed By: #### L [id number], YYM653, LQM860 #### Systems Security Analyst: SIERRA GUERRA ([phone]) [facility] ([facility]) [address] [place] [address] Hematocrit (Bld) [Volume fraction] 41.6 % Normal 40.0-52.0 [facility] Comment on above: Performed By: #### L [id number], CFH338, CLT202 #### Systems Security Analyst: SIERRA GUERRA ([phone]) [facility] ([facility]) [address] [place] [address] Hemoglobin (Bld) [Mass/Vol] 14.3 g/dL Normal 13.0-18.0 [facility] Comment on above: Performed By: #### L [id number], DPP141, MFG535 #### Systems Security Analyst: SIERRA GUERRA ([phone]) [facility] ([facility]) [address] [place] [address] Lymphocytes (Bld) [#/Vol] 1.1 10*3/uL Normal 1.0-4.3 [facility] Comment on above: Performed By: #### L [id number], ZLY441, RGA535 #### Systems Security Analyst: SIERRA GUERRA ([phone]) [facility]) [address] [place] [address] Lymphocytes/100 WBC (Bld) 26.4 % Normal 20.0-40.0 [facility] Comment on above: Performed By: #### L [id number], FPS822, XTR022 #### Systems Security Analyst: SIERRA GUERRA ([phone]) [facility]) [address] [place] [address] MCH (RBC) [Entitic mass] 29.5 pg Normal 26.0-34.0 [facility] Comment on above: Performed By: #### L [id number], YCD974, HKL935 #### Systems Security Analyst: SIERRA GUERRA ([phone]) [facility]) [address] [place] [address] MCV (RBC) [Entitic vol] 85.5 fL Normal 80.0-98.0 [facility] Comment on above: Performed By: #### L [id number], CGQ969, CGH524 #### Systems Security Analyst: SIERRA GUERRA ([phone]) [facility]) [address] [place] [address] Monocytes (Bld) [#/Vol] 0.5 10*3/uL Normal 0.0-0.8 [facility] Comment on above: Performed By: #### L [id number], CJV246, HOM565 #### Systems Security Analyst: SIERRA GUERRA ([phone]) [facility]) [address] [place] [address] Monocytes/100 WBC (Bld) 12.3 % High 2.0-10.0 [facility] Comment on above: Performed By: #### L [id number], PJA632, HVD225 #### Systems Security Analyst: SIERRA GUERRA ([phone]) [facility]) [address] [place] [address] Neutrophils (Bld) [#/Vol] 2.2 10*3/uL Normal 1.8-7.0 [facility] Comment on above: Performed By: #### L CG1942, ZYB762, HOU922 #### Systems Security Analyst: SIERRA GUERRA ([phone]) [facility] ([facility]) [address] [place] [address] Neutrophils/100 WBC (Bld) 54.5 % Normal 40.0-80.0 [facility] Comment on above: Performed By: #### L [id number], MNJ901, ZLN593 #### Systems Security Analyst: SIERRA GUERRA ([phone]) [facility] ([facility]) [address] [place] [address] NRBC (PER 100 WBCS) BY AUTOMATED COUNT 0.1 /100 WBCs Normal 0.0-2.0 [facility] Comment on above: Performed By: #### Minda [id number], QIS363, JIL374 #### Systems Security Analyst: SIERRA GUERRA ([phone]) [facility] ([facility]) [address] [place] [address] Platelet mean volume (Bld) [Entitic vol] 8.0 fL Normal 7.4-12.4 [facility] Comment on above: Performed By: #### L [id number], HOH536, BYI486 #### Systems Security Analyst: SIERRA GUERRA ([phone]) [facility] ([facility]) [address] [place] [address] Platelets (Bld) [#/Vol] 190 10*3/uL Normal 140-440 [facility] Comment on above: Performed By: #### L [id number], LPE527, ZLZ694 #### Systems Security Analyst: SIERRA GUERRA ([phone]) [facility] ([facility]) [address] [place] [address] RBC (Bld) [#/Vol] 4.86 10*6/uL Normal 4.40-5.90 [facility] Comment on above: Performed By: #### L [id number], WIZ266, FVS912 #### Systems Security Analyst: SIERRA GUERRA ([phone]) [facility] ([facility]) [address] [place] [address] WBC (Bld) [#/Vol] 4.1 10*3/uL Normal 3.6-10.7 [facility] Comment on above: Performed By: #### L [id number], EFG613, KMR888 #### Systems Security Analyst: SIERRA GUERRA ([phone]) [facility] ([facility]) [address] [place] [address] COMPLETE URINALYSISon 2023 BILIRUBIN, TOTAL PRESENCE IN URINE Negative Normal Negative [facility] Comment on above: Performed By: #### L [id number] ####Systems Security Analyst: SIERRA GUERRA ([phone])[facility])[address] [place] [address] Clarity (U) Clear Normal Clear [facility] Comment on above: Performed By: #### L [id number] ####Systems Security Analyst: SIERRA GUERRA ([phone])[facility])[address] [place] [address] Color (U) Yellow Normal Lt. Yellow [facility] Comment on above: Performed By: #### L [id number] ####Systems Security Analyst: SIERRA GUERRA ([phone])[facility] ([facility])[address] [place] [address] GLUCOSE (MG/DL) IN URINE Normal Normal Normal (<70 ) [facility] Comment on above: Performed By: #### L [id number] ####Systems Security Analyst: SIERRA GUERRA ([phone])[facility] ([facility])[address] [place] [address] HEMOGLOBIN PRESENCE IN URINE Negative Normal Negative [facility] Comment on above: Performed By: #### L [id number] ####Systems Security Analyst: SIERRA GUERRA ([phone])[facility] ([facility])[address] [place] [address] Ketones Ql (U) Negative Normal Negative [facility] Comment on above: Performed By: #### L [id number] ####Systems Security Analyst: SIERRA GUERRA ([phone])[facility] ([facility])[address] [place] [address] LEUKOCYTE ESTERASE PRESENCE IN URINE BY TEST STRIP Negative Normal Negative [facility] Comment on above: Performed By: #### L [id number] ####Systems Security Analyst: SIERRA GUERRA ([phone])[facility] ([facility])[address] [place] [address] NITRITE PRESENCE IN URINE Negative Normal Negative [facility] Comment on above: Performed By: #### L [id number] ####Systems Security Analyst: SIERRA GUERRA ([phone])[facility])[address] [place] [address] pH (U) 5.0 [pH] Normal 5.0-8.0 [facility] Comment on above: Performed By: #### L [id number] ####Systems Security Analyst: SIERRA GUERRA ([phone])[facility] ([facility])[address] [place] [address] Protein (U) [Mass/Vol] Negative Normal Negative [facility] Comment on above: Performed By: #### L [id number] ####Systems Security Analyst: SIERRA GUERRA ([phone])[facility] ([facility])[address] [place] [address] Specific gravity (U) [Rel density] 1.020 Normal 1.005-1.030 [facility] Comment on above: Performed By: #### L [id number] ####Systems Security Analyst: SIERRA GUERRA ([phone])[facility] ([facility])[address] [place] [address] UROBILINOGEN (MG/DL) IN URINE Normal Normal Normal (0-1) [facility] Comment on above: Performed By: #### L [id number] ####Systems Security Analyst: SIERRA GUERRA ([phone])[facility] ([facility])[address] [place] [address] COMPREHENSIVE METABOLIC PANE Pavel 06-15-2023 Albumin [Mass/Vol] 3.8 g/dL Normal 3.5-5.0 [facility] Comment on above: Performed By: #### Minda RIOS, [id number] ####Systems Security Analyst: SIERRA GUERRA ([phone])[facility] ([facility])[address] [place] [address] ALP [Catalytic activity/Vol] 88 U/L Normal 38-126 [facility] Comment on above: Performed By: #### Minda RIOS, [id number] ####Systems Security Analyst: SIERRA GUERRA ([phone])[facility] ([facility])[address] [place] [address] ALT [Catalytic activity/Vol] 21 U/L Normal 0-49 [facility] Comment on above: Performed By: #### Minda RIOS, [id number] ####Systems Security Analyst: SIERRA GUERRA ([phone])[facility] ([facility])[address] [place] [address] Anion gap [Moles/Vol] 6 mmol/L Normal 3-13 [facility] Comment on above: Performed By: #### Minda RIOS, [id number] ####Systems Security Analyst: SIERRA GUERRA ([phone])[facility] ([facility])[address] [place] [address] AST [Catalytic activity/Vol] 37 U/L Normal 15-46 [facility] Comment on above: Performed By: #### Minda RIOS, [id number] ####Systems Security Analyst: SIERRA GUERRA ([phone])[facility] ([facility])[address] [place] [address] Bilirubin [Mass/Vol] 0.5 mg/dL Normal 0.2-1.3 [facility] Comment on above: Performed By: #### Minda RIOS, [id number] ####Systems Security Analyst: SIERRA GUERRA ([phone])[facility])[address] [place] [address] Calcium [Mass/Vol] 8.7 mg/dL Normal 8.4-10.4 [facility] Comment on above: Performed By: #### L ABDank, [id number] ####Systems Security Analyst: SIERRA GUERRA ([phone])[facility] ([facility])[address] [place] [address] [place] Chloride [Moles/Vol] 103 mmol/L Normal 98-107 [facility] Comment on above: Performed By: #### Minda DUDLEY, [id number] ####Systems Security Analyst: SIERRA GUERRA ([phone])[facility] ([facility])[address] [place] [address] [place] CO2 [Moles/Vol] 25 mmol/L Normal 22-30 [facility] Comment on above: Performed By: #### Minda RIOS, [id number] ####Systems Security Analyst: SIERRA GUERRA ([phone])[facility])[address] [place] [address] Creatinine [Mass/Vol] 1.00 mg/dL Normal 0.66-1.25 [facility] Comment on above: Performed By: #### Minda RIOS, [id number] ####Systems Security Analyst: SIERRA GUERRA ([phone])[facility] ([facility])[address] [place] [address] GLOMERULAR FILTRATION RATE ML/MIN/1.73 SQ M.PREDICTED 80.5 mL/min/1.73m*2 Normal >60.0 [facility] Comment on above: Result Comment: Calc ulation based on the Chronic Kidney Disease Epidemiology Collaboration (CKD-EPI) equation refit without adjustment for race Performed By: #### L GABRIEL, [id number] ####Systems Security Analyst: SIERRA GUERRA ([phone])[facility] ([facility])[address] [place] [address] [place] Glucose [Mass/Vol] 88 mg/dL Normal 70-100 [facility] Comment on above: Performed By: #### L , [id number] ####Systems Security Analyst: SIERRA GUERRA ([phone])[facility])[address] [place] [address] Potassium [Moles/Vol] 4.1 mmol/L Normal 3.5-5.1 [facility] Comment on above: Performed By: #### L AB, LAB17 ####Systems Security Analyst: SIERRA GUERRA ([phone])[facility] ([facility])[address] [place] [address] Protein [Mass/Vol] 7.9 g/dL Normal 6.3-8.2 [facility] Comment on above: Performed By: #### L [id number], [id number] ####Systems Security Analyst: SIERRA GUERRA ([phone])[facility] ([facility])[address] [place] [address] Sodium [Moles/Vol] 134 mmol/L Low 135-145 [facility] Comment on above: Performed By: #### L 67, [id number] ####Systems Security Analyst: SIERRA GUERRA ([phone])[facility] ([facility])[address] [place] [address] Urea nitrogen [Mass/Vol] 20 mg/dL Normal 9-20 [facility] Comment on above: Performed By: #### Minda DUDLEY67, [id number] ####Systems Security Analyst: SIERRA GUERRA ([phone])[facility] ([facility])[address] [place] [address] Cobalamin (Vitamin B12) [Mas s/Vol]on 06-15-2023 Interpretation and review of laboratory results Normal [facility] Comprehensive metabolic 1998 panelon 06-15-2023 Albumin [Mass/Vol] 3.8 g/dL 3.5 - 5.0 g/dL [facility] ALP [Catalytic activity/Vol] 88 U/L 38 - 126 U/L [facility] ALT [Catalytic activity/Vol] 21 U/L 0 - 49 U/L [facility] Anion gap [Moles/Vol] 6 mmol/L 3 - 13 mmol/L [facility] AST [Catalytic activity/Vol] 37 U/L 15 - 46 U/L [facility] Bilirubin [Mass/Vol] 0.5 mg/dL 0.2 - 1 .3 mg/dL [facility] Calcium [Mass/Vol] 8.7 mg/dL 8.4 - 10. 4 mg/dL [facility] Chloride [Moles/Vol] 103 mmol/L 98 - 10 7 mmol/L [facility] CO2 [Moles/Vol] 25 mmol/L 22 - 30 mmol/L [facility] Creatinine [Mass/Vol] 1.00 mg/dL 0.66 - 1.25 mg/dL [facility] GFR/1.73 sq M.predicted MDRD (S/P/Bld) [Vol rate/Area] 80.5 mL/min/{1.73_m2} - PINF [facility] Comment on above: Calculation based on the Chronic Kidney Disease Epidemiology Collaboration (CKD-EPI) equation refit without adjustment for race Glucose [Mass/Vol] 88 mg/dL 70 - 100 mg/dL [facility] Interpretation and review of laboratory results Abnormal [facility] Potassium [Moles/Vol] 4.1 mmol/L 3.5 - 5.1 mmol/L [facility] Protein [Mass/Vol] 7.9 g/dL 6.3 - 8.2 g/dL [facility] Sodium [Moles/Vol] 134 mmol/L Low 135 - 145 mmol/L [facility] Urea nitrogen [Mass/Vol] 20 mg/dL 9 - 20 mg/d L [facility] Consulton 06-15-2023 Consult Attestation with edits by Nedra White MD at 06/17/2023 8:39 AM ATTENDING ATTESTATION: ATTENDING ATTESTATION: I saw and independently examined Mr. Mueller on 06/15/2023. The case was discussed on rounds with the fellow, Dr. Millard. I agree with the history , examination, and medical decision making as outlined. See my annotations in italics. Please see fellow note for further recommendations. [facility] Geriatric Medicine Inpatient Consult Service Admission Date: 06/13/2023 Admission Status: INPATIENT Chief Complaint: Chief Complaint Patient presents with Altered Mental Status Pt is brought into the ED by EMS. Per EMS the pt was found wandering near the [place] [facility]. Pt states that he lives in [place]. Pt states that he remembers getting on the bus this morning. Pt states that he is not sure where he was going when he got on the bus. Pt states that he does not remember much from today. Reason for Appointment Geriatrics consulted for Episode of confusion and wondering to bob couch, unclear etiology. MMSE 20. Concerns for safety at home. Assessment/Plan Principal Problem: Delirium Active Problems: Acute [...] --No antipsychotic unless patient is danger to self/others/treatmen t --Start scheduled melatonin at HS --Monitor for constipation/urinary retention - last BM unknown - melatonin - will have the patient follow up on an OP basis. - RPR pending - MRI head already ordered - agree. - CIWA - thiamine - consider ADM consult - management per primary team. - patient to follow up with [facility] on an OP basis, once at baseline - he prefers to be seen at [facility]. Agree - would recommend to reach out to maintainer sewer and waterworks [place] to corroborate patient's history. Agree. At [...] he can have money to get anything else. Patient is a poor historian. Patient states [...] fevers, chills, and night sweats. Last BM wastoday. No urgency, frequency, or dysuria. Patient states he wants [employer] to get elected and watches the news all day, but did not know when the election year occurred. Patient states he has been paying his rent through his bank, but does not remember which bank he uses. On chart review: Patient was brought from [facility] by EMS. Patient supposedly was at home watching TV and somehow found himself on the bus and ended up at [facility]. Concern for an amnestic episode. Pleasant and cooperative but vague when pressed for specific details. Thinks that he went to the store looking for help from someone because of his confusion. Fairly nonplussed about admission and does not seem to be anxious about leaving the hospital. Conversation with caregiver: Sister - Gabriela Mueller - [phone] - patient provided this phone number, which has been disconnected. Patient has not spoken to his sister in approximately 5-6 months. Patient denies having any friends in the area - states that he stays at home and watches TV all day. Advance Care Planning Healthcare Power ofAttorney: No Financial Power of Concession Supervisor: No Living Will:No Code Status: Full code No Known Allergies Current Facility-Administere d Medications: acetaminophen (Tylenol) tablet 650 mg, 650 mg, Oral, q6h PRN, Kenneth Solo (more content not included)... Normal [facility] ETHYL GLUCURONIDE SCREEN, JOANN Arteaga 06-15-2023 ETHYL GLUCURONIDE, URINE Negative Normal Negative [facility] Comment on above: Result Comment: FOX Rey COMMENTS: Ethyl Glucuronide has been screened by Immunoassay at a 500 ng/mL threshold. POSITIVE results are not confirmed by a more specific alternative method unless requested. If confirmation is needed, request confirmation under separate order. NOTE: These results are for medical treatment only. Analysis performed using non-forensic procedures. This test has not been cleared by the US Food and Drug Administration (FDA). The FDA has determined that such clearance or approval is not necessary. The performance characteristics have been determined by the clinical laboratories of [facility]. Performed By: #### L [id number], [id number] ####Systems Security Analyst: SIERRA GUERRA ([phone])[facility] ([facility])[address] [place] [address] HIV1,2 COMBO ANTIGEN-ANTIBOD Y SCREENon 06-15-2023 HIV 1,2 COMBO ANTIGEN/ANTIBODY Non-Reactive Normal Nonreactive [facility] Comment on above: Result Comment: The specimen was non-reactive for HIV-1 and HIV-2 antibodies and p24 antigen using an FDA-cleared 4th generation HIV test. Based on this non-reactive screen result, further reflexive testing was not indicated and was, therefore, not performed. Performed By: #### L [id number], [id number] ####Systems Security Analyst: SIERRA GUERRA ([phone])[facility])[address] [place] [address] Laboratory - Chemistry and C hemistry - challengeOrdered By: Iman Juares on 06-15-2023 Ammonia (P) [Moles/Vol] 19 umol/L 9 - 30 umol/ L [facility] Laboratory - Chemistry and C hemistry - challengeon 06-15-2023 25-hydroxyvitamin D3 [Mass/Vol] 27 ng/mL Low 30 - 100 ng/mL [facility] Cobalamin (Vitamin B12) [Mass/Vol] 575 pg/mL 239 - 931 pg/mL [facility] Laboratory - Drug toxicology Ordered By: Vanda Wei on 06-15-2023 Amphetamines Ql (U) Negative Negative [facility] Benzodiazepines Ql (U) Negative Negative [facility] Cocaine Ql (U) Negative Negative [facility] Ethanol [Mass/Vol] Negative Negative [facility] Methadone Ql (U) Negative Negative [facility] Opiates Ql (U) Negative Negative [facility] MEDICATION ASSISTED TREATMEN T PANELon 06-15-2023 Amphetamines Ql (U) Negative Normal Negative [facility] Comment on above: Performed By: #### L [id number], [id number] ####Systems Security Analyst: SIERRA GUERRA ([phone])[facility] ([facility])[address] [place] [address] BARBITURATES Negative Normal Negative [facility] Comment on above: Performed By: #### L [id number], [id number] ####Systems Security Analyst: SIERRA GUERRA ([phone])[facility] ([facility])[address] [place] [address] Benzodiazepines Ql (U) Negative Normal Negative [facility] Comment on above: Performed By: #### L [id number], [id number] ####Systems Security Analyst: SIERRA GUERRA ([phone])[facility] ([facility])[address] [place] [address] BUPRENORPHINE SCREEN Negative Normal Negative [facility] Comment on above: Performed By: #### L [id number], [id number] ####Systems Security Analyst: SIERRA GUERRA ([phone])[facility] ([facility])[address] [place] [address] Cocaine Ql (U) Negative Normal Negative [facility] Comment on above: Performed By: #### L [id number], [id number] ####Systems Security Analyst: SIERRA GUERRA ([phone])[facility] ([facility])[address] [place] [address] ETHANOL-ETOHO Negative Normal Negative [facility] Comment on above: Result Comment: ORDE R COMMENTS: The expected value for the drugs listed above is Negative. The following drugs or drug groups have been screened for by Immunoassay at the following thresholds: Amphetamine class(1000ng/mL) Barbituates(200ng/mL) Benzodiazepines(200ng/mL) Cocaine(300ng/mL) Ethanol (50 ng/mL) Methadone(300ng/mL) Opiates(300ng/mL) Oxycodone(100ng/mL) PCP(25ng/mL) Buprenorphine(5ng/mL) THC(50ng/mL) Fentanyl(1ng/mL) Positive results are NOT confirmed by a more specific alternative method unless requested. If confirmation is needed, request confirmation under separate order. NOTE: These results are for medical treatment only. Analysis performed using non-forensic procedures. Performed By: #### L [id number], [id number] ####Systems Security Analyst: SIERRA GUERRA ([phone])[facility] ([facility])[address] [place] [address] FENTANYL Negative Normal Negative [facility] Comment on above: Performed By: #### L [id number], [id number] ####Systems Security Analyst: SIERRA GUERRA ([phone])[facility] ([facility] [place] [address] Methadone Ql (U) Negative Normal Negative [facility] Comment on above: Performed By: #### L [id number], [id number] ####Systems Security Analyst: SIERRA GUERRA ([phone])[facility] ([facility] [place] [address] Opiates Ql (U) Negative Normal Negative [facility] Comment on above: Performed By: #### L [id number], [id number] ####Systems Security Analyst: SIERRA GUERRA ([phone])[facility] ([facility] [place] [address] OXYCODONE/OXYMORPHONE Negative Normal Negative [facility] Comment on above: Performed By: #### L [id number], [id number] ####Systems Security Analyst: SIERRA GUERRA ([phone])[facility] ([facility])[address] [place] [address] PCP Negative Normal Negative [facility] Comment on above: Performed By: #### L [id number], [id number] ####Systems Security Analyst: SIERRA GUERRA ([phone])[facility] ([facility])[address] [place] [address] THC-MTTHC Positive Normal Negative [facility] Comment on above: Performed By: #### L [id number], [id number] ####Systems Security Analyst: SIERRA GUERRA ([phone])[address] MR Brain WO and W contrast I Von 06-15-2023 Diminished cerebral volume and evidence of chronic white matter small vessel ischemic change without acute intracranial abnormality. Report Dictated on Electronically Signed By: Cristian Deng MD Electronically Signed Date/Time: 06/15/2023 11:05 PM [facility] Patient Name: CORY MUELLER : 1950 Exam Date/Time: 06/15/2023 21:20 Procedure: MR BRAIN W AND WO CONTRAST Ordering Provider: HAY AMY Reason For Exam: AMS unclear cause MRI BRAIN WITHOUT AND WITH CONTRAST: CLINICAL INDICATION: Altered mental status TECHNIQUE: Multiplanar multi sequential MRI images of the brain were obtained pre and post intravenous administration of 5ml gadolinium based contrast. COMPARISON: 06/13/2023 FINDINGS: Ventricular system and Extra-axial spaces: Generalized enlargement of the ventricles and sulci is noted without extracerebral collection with mass effect. Cerebral and cerebellar parenchyma: There is a mild burden of T2/FLAIR hyperintense foci within the periventricular and deep white matter, nonspecific but suggestive of chronic small vessel ischemic changes. No evidence of diffusion restriction.. Brainstem: Normal. Sella turcica and pituitary: Normal. Vascular system: Normal signal void is noted within the major intracranial vessels. Paranasal sinuses: Mild mucosal thickening noted in the maxillary sinuses.. Mastoid air cells: Normal. Orbits: Normal. [facility] Cristian Deng MD - 06/15/2023 Patient Name: CORY MUELLER : 1950 Exam Date/Time: 06/15/2023 21:20 Procedure: MR BRAIN W AND WO CONTRAST Ordering Provider: HAY AMY Reason For Exam: AMS unclear cause MRI BRAIN WITHOUT AND WITH CONTRAST: CLINICAL INDICATION: Altered mental status TECHNIQUE: Multiplanar multi sequential MRI images of the brain were obtained pre and post intravenous administration of 5ml gadolinium based contrast. COMPARISON: 06/13/2023 FINDINGS: Ventricular system and Extra-axial spaces: Generalized enlargement of the ventricles and sulci is noted without extracerebral collection with mass effect. Cerebral and cerebellar parenchyma: There is a mild burden of T2/FLAIR hyperintense foci within the periventricular and deep white matter, nonspecific but suggestive of chronic small vessel ischemic changes. No evidence of diffusion restriction.. Brainstem: Normal. Sella turcica and pituitary: Normal. Vascular system: Normal signal void is noted within the major intracranial vessels. Paranasal sinuses: Mild mucosal thickening noted in the maxillary sinuses.. Mastoid air cells: Normal. Orbits: Normal. IMPRESSION: Diminished cerebral volume and evidence of chronic white matter small vessel ischemic change without acute intracranial abnormality. Report Dictated on Electronically Signed By: Cristian Deng MD Electronically Signed Date/Time: 06/15/2023 11:05 PM EST [facility] Radiology Study observation (narrative) [facility] alth MR Brain WO and W contrast I VOrdered By: Cristian Deng on 06-15-2023 [facility] Work Phone: No Panel InformationOrdered By: Vanda Wei on 06-15-2023 BARBITURATES Negative Negative [facility] BUPRENORPHINE SCREEN Negative Negative [facility] FENTANYL Negative Negative [facility] OXYCODONE/OXYMORPHONE Negative Negative [facility] PCP Negative Negative [facility] THC Positive Negative [facility] The expected value for the drugs listed above is Negative. The following drugs or drug groups have been screened for by Immunoassay at the following thresholds: Amphetamine class(1000ng/mL) Barbituates(200ng/mL ) Benzodiazepines(200n g/mL) Cocaine(300ng/mL) Ethanol (50 ng/mL) Methadone(300ng/mL) Opiates(300ng/mL) Oxycodone(100ng/mL) PCP(25ng/mL) Buprenorphine(5ng/mL ) THC(50ng/mL) Fentanyl(1ng/mL) Positive results are NOT confirmed by a more specific alternative method unless requested. If confirmation is needed, request confirmation under separate order. NOTE: These results are for medical treatment only. Analysis performed using non-forensic procedures. [facility] No Panel Informationon 06-15 ETHYL GLUCURONIDE, URINE Negative Negative [facility] Ethyl Glucuronide has been screened by Immunoassay at a 500 ng/mL threshold. POSITIVE results are not confirmed by a more specific alternative method unless requested. If confirmation is needed, request confirmation under separate order. NOTE: These results are for medical treatment only. Analysis performed using non-forensic procedures. This test has not been cleared by the US Food and Drug Administration (FDA). The FDA has determined that such clearance or approval is not necessary. The performance characteristics have been determined by the clinical laboratories of [facility]. [facility] No Panel InformationOrdered By: Iman Juares on 06-15-2023 Interpretation and review of laboratory results Normal [facility] Progress Noteon 06-15-2023 Progress Note Nutrition rescreen completed. Patient referred to the Dietitian due to cachexia. Bianca Simmons, LOU Normal [facility] RPR WITH REFLEX QUANTon 05-21 RPR Non-Reactive Normal Nonreactive [facility] Comment on above: Performed By: #### L [id number], [id number] ####Systems Security Analyst: SIERRA GUERRA ([phone])[facility] ([address] Urinalysis complete panel (U )on 06-15-2023 Bilirubin Ql (U) Negative Negative mg/dL [facility] RooT Clarity (U) Clear Clear [facility] Color (U) Yellow Lt. Yellow [facility] Glucose Ql (U) Normal Normal (<70) mg/dL [facility] Hemoglobin Ql (U) Negative Negative mg/dL [facility] Interpretation and review of laboratory results Normal [facility] Ketones (U) [Mass/Vol] Negative Negative mg/d L [facility] Leukocyte esterase Test strip Ql (U) Negative Negative Marianne/uL [facility] Nitrite Ql (U) Negative Negative [facility] th pH (U) 5.0 [pH] 5.0 - 8.0 pH [facility] Protein (U) [Mass/Vol] Negative Negative mg/d L [facility] Specific gravity (U) [Rel density] 1.020 1.005 - 1.030 [facility] Urobilinogen (U) [Mass/Vol] Normal Normal (0-1) mg/dL [facility] VITAMIN B12on 06-15-2023 Cobalamin (Vitamin B12) [Mass/Vol] 575 pg/mL Normal 239-931 [facility] Comment on above: Performed By: #### L [id number], [id number] ####Systems Security Analyst: SIERRA GUERRA ([phone])[facility] ([facility])[address] [place] [address] VITAMIN D DEFICIENCY SCREENI NG (VIT D 25)on 06-15-2023 VIT D 25-OH, TOTAL 27 ng/mL Low 30-100 [facility] Comment on above: Result Comment: FOX Rey COMMENTS: Therapy is based on measurement of Total 25-OHD with the following classification levels: Less than 20 ng/mL: Indicative of Vit D deficiency 20-30 ng/mL: Suggests Vit D insufficiency Optimal: Greater than or equal to 30 ng/mL Test performed by Virtual DBS Competitive Immunoassay, measuring Total Vitamin D, not individual fractions. Performed By: #### L [id number] ####Systems Security Analyst: RANDY BAKER ([phone])[facility] ([facility])[address] [place] [address] AMMONIAon 06-14-2023 Ammonia (P) [Mass/Vol] ug/dL Low 9-30 [facility] Comment on above: Performed By: #### L [id number] ####Systems Security Analyst: SIERRA GUERRA ([phone])[facility] ([facility] [place] [address] BLOOD GAS, VENOUSon 06-14-19 24 Base excess Calc (BldV) [Moles/Vol] 1.8 mmol/L Normal -3.0-3.0 [facility] Comment on above: Performed By: #### L [id number] ####Systems Security Analyst: SIERRA GUERRA ([phone])[facility] ([facility])[address] [place] [address] CO2 [Moles/Vol] 28.9 mmol/L High 24.0-28.0 [facility] [facility] Comment on above: Performed By: #### L AB79 ####Systems Security Analyst: SIERRA GUERRA ([phone])[facility] ([facility])[address] [place] [address] HCO3 (Bld) [Moles/Vol] 27.4 mmol/L High 23.0-27.0 [facility] Comment on above: Performed By: #### L [id number] ####Systems Security Analyst: SIERRA GUERRA ([phone])[facility] ([facility])[address] [place] [address] Hemoglobin (Bld) [Mass/Vol] 15.3 g/dL Normal Screen Only [facility] Comment on above: Performed By: #### L [id number] ####Systems Security Analyst: SIERRA GUERRA ([phone])[facility])[address] [place] [address] OXYGEN (MM HG) IN VENOUS BLOOD 35.4 mm Hg Normal 30.0-50.0 [facility] Comment on above: Performed By: #### L AB79 ####Systems Security Analyst: SIERRA GUERRA ([phone])[facility] ([facility])[address] [place] [address] OXYGEN SATURATION (%) IN VENOUS BLOOD 61.6 % Normal 60.0-80.0 [facility] Comment on above: Performed By: #### L AB79 ####Systems Security Analyst: SIERRA GUERRA ([phone])[facility] ([facility])[address] [place] [address] PCO2, SANTY 46.6 mm Hg Normal 40.0-55.0 [facility] Comment on above: Performed By: #### L AB79 ####Systems Security Analyst: SIERRA GUERRA ([phone])[facility])[address] [place] [address] PH VENOUS 7.388 Normal 7.330-7.430 [facility] Comment on above: Performed By: #### L AB79 ####Systems Security Analyst: SIERRA GUERRA ([phone])[facility] ([facility])[address] [place] [address] SOURCE OF OXYGEN Room Air Normal [facility] Comment on above: Result Comment: ORDE R COMMENTS: Interpret with caution, pO2 value falsely increased due to vacuum in tube. For accurate results, please draw on a syringe. Performed By: #### L AB79 ####Systems Security Analyst: SIERRA GUERRA ([phone])[facility] ([facility])[address] [place] [address] [facility] 06-14-2023 [facility] Care Managment Initial Assessment Date: 06/14/2023 Patient Name: Cory Mueller : 1950 Patient Information Source of Information: Patient Cognition/Language: WFL - Within Functional Limits, Other (Comment) (? 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 Patient did state that he has a sister Gabriela in [place] and another sister in [place]) Confirmation of Payer with patient/family: Yes Payer Name: [facility] Medicare/[facility]- medicaid only [place]: No Confirmation of Primary Care Physician: No [...] of Daily Living Ambulation: Independent Bathing/Dressing: Independent Elimination/Continen ce/Toileting: Independent Feeding: Independent Who Assists with Activities of Daily Living: Instrumental Activities of Daily Living Prescription Coverage: Yes (patient states he does not take any medications) Pharmacy Used: Medication Management: (n/a) Transportation/Shopp ing: Independent Transportation Mode: Public transportation (patient states [...] assistance with transport home. Stefanie Lipscomb RN Normal [facility] CBC W Auto Differential pane l (Bld)Ordered By: Nuria Soni on 06-14-2023 Basophils (Bld) [#/Vol] 0.1 10*3/uL 0.0 - 0.2 10*3/uL [facility] Basophils/100 WBC (Bld) 2.4 % High 0.0 - 2.0 % [facility] Eosinophils (Bld) [#/Vol] 0.2 10*3/uL 0.0 - 0.5 10*3/uL [facility] Eosinophils/100 WBC (Bld) 3.6 % 1.0 - 6.0 % [facility] Erythrocyte distribution width (RBC) [Ratio] 14.6 % High 11.5 - 14.5 % [facility] Hematocrit (Bld) [Volume fraction] 41.5 % 40.0 - 52.0 % [facility] Hemoglobin (Bld) [Mass/Vol] 14.7 g/dL 13.0 - 18.0 g/dL [facility] Interpretation and review of laboratory results Abnormal [facility] Lymphocytes (Bld) [#/Vol] 1.2 10*3/uL 1.0 - 4.3 10*3/uL [facility] Lymphocytes/100 WBC (Bld) 25.7 % 20.0 - 40.0 % [facility] MCH (RBC) [Entitic mass] 29.9 pg 26.0 - 34.0 pg [facility] MCHC (RBC) [Mass/Vol] 35.4 % 32.0 - 36.0 % [facility] MCV (RBC) [Entitic vol] 84.2 fL 80.0 - 98.0 fL [facility] Monocytes (Bld) [#/Vol] 0.6 10*3/uL 0.0 - 0.8 10*3/uL [facility] Monocytes/100 WBC (Bld) 13.6 % High 2.0 - 10.0 % [facility] Neutrophils (Bld) [#/Vol] 2.6 10*3/uL 1.8 - 7.0 10*3/uL [facility] Neutrophils/100 WBC (Bld) 54.7 % 40.0 - 80.0 % [facility] Nucleated RBC/100 WBC (Bld) [Ratio] 0.0 % [facility] Platelet mean volume (Bld) [Entitic vol] 8.1 fL 7.4 - 12.4 fL [facility] Platelets (Bld) [#/Vol] 198 10*3/uL 140 - 440 10*3/uL [facility] RBC (Bld) [#/Vol] 4.93 10*6/uL 4.40 - 5.9 0 10*6/uL [facility] WBC (Bld) [#/Vol] 4.8 10*3/uL 3.6 - 10.7 10*3/uL [facility] CBC WITH AUTO DIFFERENTIALon 06-14-2023 Basophils (Bld) [#/Vol] 0.1 10*3/uL Normal 0.0-0.2 [facility] Comment on above: Performed By: #### L [id number], [id number], [id number] #### Systems Security Analyst: SIERRA GUERRA ([phone]) [facility] ([facility]) [address] [place] [address] [place] Basophils/100 WBC (Bld) 2.4 % High 0.0-2.0 [facility] Comment on above: Performed By: #### L [id number], HHS582, HMJ636 #### Systems Security Analyst: SIERRA GUERRA ([phone]) [facility] ([facility]) [address] [place] [address] [place] Eosinophils (Bld) [#/Vol] 0.2 10*3/uL Normal 0.0-0.5 [facility] Comment on above: Performed By: #### L [id number], VNR563, ELL016 #### Systems Security Analyst: SIERRA GUERRA ([phone]) [facility] ([facility]) [address] [place] [address] [place] Eosinophils/100 WBC (Bld) 3.6 % Normal 1.0-6.0 [facility] Comment on above: Performed By: #### L [id number], [id number], HZT954 #### Systems Security Analyst: SIERRA GUERRA ([phone]) [facility]) [address] [place] [address] Erythrocyte distribution width (RBC) [Ratio] 14.6 % High 11.5-14.5 [facility] Comment on above: Performed By: #### L [id number], NRT162, YPR420 #### Systems Security Analyst: SIERRA GUERRA ([phone]) [facility]) [address] [place] [address] ERYTHROCYTE MEAN CORPUSCULAR HEMOGLOBIN CONCENTRATION (G/DL) BY AUTOMATED 35.4 % Normal 32.0-36.0 [facility] Comment on above: Performed By: #### L [id number], RXG977, RZR618 #### Systems Security Analyst: SIERRA GUERRA ([phone]) [facility]) [address] [place] [address] Hematocrit (Bld) [Volume fraction] 41.5 % Normal 40.0-52.0 [facility] Comment on above: Performed By: #### L [id number], ILX804, KNF543 #### Systems Security Analyst: SIERRA GUERRA ([id number]) [facility]) [address] [place] [address] Hemoglobin (Bld) [Mass/Vol] 14.7 g/dL Normal 13.0-18.0 [facility] Comment on above: Performed By: #### L IY6152, XRN054, YNL999 #### Systems Security Analyst: SIERRA GUERRA ([phone]) [facility] ([facility]) [address] [place] [address] Lymphocytes (Bld) [#/Vol] 1.2 10*3/uL Normal 1.0-4.3 [facility] Comment on above: Performed By: #### L YV6770, UWO848, NTY381 #### Systems Security Analyst: SIERRA GUERRA ([id number]) [facility]) [address] [place] [address] Lymphocytes/100 WBC (Bld) 25.7 % Normal 20.0-40.0 [facility] Comment on above: Performed By: #### Minda XU9417, OQO288, SYY421 #### Systems Security Analyst: SIERRA GUERRA ([phone]) [facility]) [address] [place] [address] MCH (RBC) [Entitic mass] 29.9 pg Normal 26.0-34.0 [facility] Comment on above: Performed By: #### L [id number], IMZ512, BOE575 #### Systems Security Analyst: SIERRA GUERRA ([phone]) [facility]) [address] [place] [address] MCV (RBC) [Entitic vol] 84.2 fL Normal 80.0-98.0 [facility] Comment on above: Performed By: #### Minda DK8636, DUY302, QXH465 #### Systems Security Analyst: SIERRA GUERRA ([phone]) [facility] ([facility]) [address] [place] [address] Monocytes (Bld) [#/Vol] 0.6 10*3/uL Normal 0.0-0.8 [facility] Comment on above: Performed By: #### L [id number], VDU063, SHD715 #### Systems Security Analyst: SIERRA GUERRA ([phone]) [facility]) [address] [place] [address] Monocytes/100 WBC (Bld) 13.6 % High 2.0-10.0 [facility] Comment on above: Performed By: #### L QY6765, ZSA187, YPT635 #### Systems Security Analyst: SIERRA GUERRA ([phone]) [facility]) [address] [place] [address] Neutrophils (Bld) [#/Vol] 2.6 10*3/uL Normal 1.8-7.0 [facility] Comment on above: Performed By: #### L JH6264, NBC227, PDO257 #### Systems Security Analyst: SIERRA GUERRA ([phone]) [facility] ([facility]) [address] [place] [address] Neutrophils/100 WBC (Bld) 54.7 % Normal 40.0-80.0 [facility] Comment on above: Performed By: #### L IY2173, GXX988, FYT838 #### Systems Security Analyst: SIERRA GUERRA ([phone]) [facility] ([facility]) [address] [place] [address] NRBC (PER 100 WBCS) BY AUTOMATED COUNT 0.0 /100 WBCs Normal 0.0-2.0 [facility] Comment on above: Performed By: #### L [id number], OUT234, LIZ717 #### Systems Security Analyst: SIERRA GUERRA ([phone]) [facility] ([facility]) [address] [place] [address] Platelet mean volume (Bld) [Entitic vol] 8.1 fL Normal 7.4-12.4 [facility] Comment on above: Performed By: #### Minda [id number], FNQ711, ZUS511 #### Systems Security Analyst: SIERRA GUERRA ([phone]) [facility] ([facility]) [address] [place] [address] [place] Platelets (Bld) [#/Vol] 198 10*3/uL Normal 140-440 [facility] Comment on above: Performed By: #### L [id number], IVR968, MIA172 #### Systems Security Analyst: SIERRA GUERRA ([phone]) [facility] ([facility]) [address] [place] [address] [place] RBC (Bld) [#/Vol] 4.93 10*6/uL Normal 4.40-5.90 [facility] Comment on above: Performed By: #### L AH3951, QGD022, VDX535 #### Systems Security Analyst: SIERRA GUERRA ([phone]) [facility] ([facility]) [address] [place] [address] [place] WBC (Bld) [#/Vol] 4.8 10*3/uL Normal 3.6-10.7 [facility] Comment on above: Performed By: #### L [id number], XQA460, XXH997 #### Systems Security Analyst: SIERRA GUERRA ([phone]) [facility] ([facility]) [address] [place] [address] Basophils (Bld) [#/Vol] 0.0 10*3/uL Normal 0.0-0.2 [facility] Comment on above: Performed By: #### L [id number] ####Systems Security Analyst: SIERRA GUERRA ([phone])[facility] ([facility])[address] [place] [address] [place] Basophils/100 WBC (Bld) 0.6 % Normal 0.0-2.0 [facility] Comment on above: Performed By: #### L [id number] ####Systems Security Analyst: SIERRA GUERRA ([phone])[facility] ([facility])[address] [place] [address] Eosinophils (Bld) [#/Vol] 0.1 10*3/uL Normal 0.0-0.5 [facility] Comment on above: Performed By: #### L [id number] ####Systems Security Analyst: SIERRA GUERRA ([phone])[facility] ([facility])[address] [place] [address] Eosinophils/100 WBC (Bld) 1.6 % Normal 1.0-6.0 [facility] Comment on above: Performed By: #### L [id number] ####Systems Security Analyst: SIERRA GUERRA ([phone])[facility] ([facility])[address] [place] [address] Erythrocyte distribution width (RBC) [Ratio] 14.5 % Normal 11.5-14.5 [facility] Comment on above: Performed By: #### L [id number] ####Systems Security Analyst: SIERRA GUERRA ([phone])[facility])[address] [place] [address] ERYTHROCYTE MEAN CORPUSCULAR HEMOGLOBIN CONCENTRATION (G/DL) BY AUTOMATED 34.8 % Normal 32.0-36.0 [facility] Comment on above: Performed By: #### L [id number] ####Systems Security Analyst: SIERRA GUERRA ([phone])[address] Hematocrit (Bld) [Volume fraction] 41.9 % Normal 40.0-52.0 [facility] Comment on above: Performed By: #### L [id number] ####Systems Security Analyst: SIERRA GUERRA ([phone])[facility])[address] [place] [address] Hemoglobin (Bld) [Mass/Vol] 14.6 g/dL Normal 13.0-18.0 [facility] Comment on above: Performed By: #### L [id number] ####Systems Security Analyst: SIERRA GUERRA ([phone])[address] Lymphocytes (Bld) [#/Vol] 0.9 10*3/uL Low 1.0-4.3 [facility] Comment on above: Performed By: #### L [id number] ####Systems Security Analyst: SIERRA GUERRA ([phone])[address] Lymphocytes/100 WBC (Bld) 16.5 % Low 20.0-40.0 [facility] Comment on above: Performed By: #### L [id number] ####Systems Security Analyst: SIERRA GUERRA ([phone])[facility])[address] [place] [address] MCH (RBC) [Entitic mass] 29.1 pg Normal 26.0-34.0 [facility] Comment on above: Performed By: #### L [id number] ####Systems Security Analyst: SIERRA GURERA ([phone])[address] MCV (RBC) [Entitic vol] 83.5 fL Normal 80.0-98.0 [facility] Comment on above: Performed By: #### L [id number] ####Systems Security Analyst: SIERRA GUERRA ([phone])[facility] ([facility])[address] [place] [address] Monocytes (Bld) [#/Vol] 0.7 10*3/uL Normal 0.0-0.8 [facility] Comment on above: Performed By: #### L [id number] ####Systems Security Analyst: SIERRA GUERRA ([phone])[facility] ([facility])[address] [place] [address] Monocytes/100 WBC (Bld) 12.0 % High 2.0-10.0 [facility] Comment on above: Performed By: #### L [id number] ####Systems Security Analyst: SIERRA GUERRA ([phone])[facility] ([facility])[address] [place] [address] Neutrophils (Bld) [#/Vol] 4.0 10*3/uL Normal 1.8-7.0 [facility] Comment on above: Performed By: #### L [id number] ####Systems Security Analyst: SIERRA GUERRA ([phone])[facility] ([facility])[address] [place] [address] Neutrophils/100 WBC (Bld) 69.3 % Normal 40.0-80.0 [facility] Comment on above: Performed By: #### L [id number] ####Systems Security Analyst: SIERRA GURERA ([phone])[facility])[address] [place] [address] NRBC (PER 100 WBCS) BY AUTOMATED COUNT 0.1 /100 WBCs Normal 0.0-2.0 [facility] Comment on above: Performed By: #### L [id number] ####Systems Security Analyst: SIERRA GUERRA ([phone])[facility])[address] [place] [address] Platelet mean volume (Bld) [Entitic vol] 8.4 fL Normal 7.4-12.4 [facility] Comment on above: Performed By: #### L [id number] ####Systems Security Analyst: SIERRA GUERRA ([phone])[facility] ([facility])[address] [place] [address] Platelets (Bld) [#/Vol] 198 10*3/uL Normal 140-440 [facility] Comment on above: Performed By: #### L [id number] ####Systems Security Analyst: SIERRA GUERRA ([phone])[facility] ([facility])[address] [place] [address] RBC (Bld) [#/Vol] 5.01 10*6/uL Normal 4.40-5.90 [facility] Comment on above: Performed By: #### L [id number] ####Systems Security Analyst: SIERRA GUERRA ([phone])[facility] ([facility])[address] [place] [address] WBC (Bld) [#/Vol] 5.7 10*3/uL Normal 3.6-10.7 [facility] Comment on above: Performed By: #### L [id number] ####Systems Security Analyst: SIERRA GUERRA ([phone])[facility] ([facility])[address] [place] [address] COMPREHENSIVE METABOLIC PANE Pavel 06-14-2023 Albumin [Mass/Vol] 4.5 g/dL Normal 3.5-5.0 [facility] Comment on above: Performed By: #### Minda DUDLEY74Oswald, LAB17 ####Systems Security Analyst: SIERRA GUERRA ([phone])[facility] ([facility])[address] [place] [address] ALP [Catalytic activity/Vol] 91 U/L Normal 38-126 [facility] Comment on above: Performed By: #### Minda DUDLEY74Oswald, LAB17 ####Systems Security Analyst: SIERRA GUERRA ([phone])[facility])[address] [place] [address] ALT [Catalytic activity/Vol] 27 U/L Normal 0-49 [facility] Comment on above: Performed By: #### Minda DUDLEY74Oswald, LAB17 ####Systems Security Analyst: SIERRA GUERRA ([phone])[facility] ([facility])[address] [place] [address] Anion gap [Moles/Vol] 10 mmol/L Normal 3-13 [facility] Comment on above: Performed By: #### L [id number], LAB17 ####Systems Security Analyst: SIERRA GUERRA ([phone])[facility] ([facility])[address] [place] [address] AST [Catalytic activity/Vol] 42 U/L Normal 15-46 [facility] Comment on above: Performed By: #### L AB747, LAB17 ####Systems Security Analyst: SIERRA GUERRA ([phone])[facility] ([facility])[address] [place] [address] Bilirubin [Mass/Vol] 1.0 mg/dL Normal 0.2-1.3 [facility] Comment on above: Performed By: #### L KATHARINE, LAB17 ####Systems Security Analyst: SIERRA GUERRA ([phone])[facility] ([facility])[address] [place] [address] Calcium [Mass/Vol] 9.1 mg/dL Normal 8.4-10.4 [facility] Comment on above: Performed By: #### L AB747, LAB17 ####Systems Security Analyst: SIERRA GUERRA ([phone])[facility] ([facility])[address] [place] [address] [place] Chloride [Moles/Vol] 101 mmol/L Normal 98-107 [facility] Comment on above: Performed By: #### L AB747, LAB17 ####Systems Security Analyst: SIERRA GUERRA ([phone])[facility] ([facility])[address] [place] [address] [place] CO2 [Moles/Vol] 23 mmol/L Normal 22-30 [facility] Comment on above: Performed By: #### L AB747, LAB17 ####Systems Security Analyst: SIERRA GUERRA ([phone])[facility] ([facility])[address] [place] [address] [place] Creatinine [Mass/Vol] 1.10 mg/dL Normal 0.66-1.25 [facility] Comment on above: Performed By: #### L AB747, LAB17 ####Systems Security Analyst: SIERRA GUERRA ([phone])[facility])[address] [place] [address] GLOMERULAR FILTRATION RATE ML/MIN/1.73 SQ M.PREDICTED 71.8 mL/min/1.73m*2 Normal >60.0 [facility] Comment on above: Result Comment: Calc ulation based on the Chronic Kidney Disease Epidemiology Collaboration (CKD-EPI) equation refit without adjustment for race Performed By: #### L 74Oswald, LAB17 ####Systems Security Analyst: SIERRA GUERRA ([phone])[facility])[address] [place] [address] Glucose [Mass/Vol] 84 mg/dL Normal 70-100 [facility] Comment on above: Performed By: #### L 74Oswald, LAB17 ####Systems Security Analyst: SIERRA GUERRA ([phone])[facility] ([facility])[address] [place] [address] Potassium [Moles/Vol] 4.1 mmol/L Normal 3.5-5.1 [facility] Comment on above: Performed By: #### L 747, LAB17 ####Systems Security Analyst: SIERRA GUERRA ([phone])[address] Protein [Mass/Vol] 9.0 g/dL High 6.3-8.2 [facility] Comment on above: Performed By: #### L AB747, LAB17 ####Systems Security Analyst: SIERRA GUERRA ([phone])[facility])[address] [place] [address] Sodium [Moles/Vol] 135 mmol/L Normal 135-145 [facility] Comment on above: Performed By: #### L AB747, LAB17 ####Systems Security Analyst: SIERRA GUERRA ([phone])[facility])[address] [place] [address] Urea nitrogen [Mass/Vol] 21 mg/dL High 9-20 [facility] Comment on above: Performed By: #### L AB747, LAB17 ####Systems Security Analyst: SIERRA GUERRA ([phone])[facility] ([facility])[address] [place] [address] Albumin [Mass/Vol] 4.3 g/dL Normal 3.5-5.0 [facility] Comment on above: Performed By: #### L [id number], [id number], [id number] #### Systems Security Analyst: SIERRA GUERRA ([phone]) [facility] ([facility]) [address] [place] [address] ALP [Catalytic activity/Vol] 89 U/L Normal 38-126 [facility] Comment on above: Performed By: #### L [id number], [id number], [id number] #### Systems Security Analyst: SIERRA GUERRA ([phone]) [facility] ([facility]) [address] [place] [address] ALT [Catalytic activity/Vol] 27 U/L Normal 0-49 [facility] Comment on above: Performed By: #### L [id number], [id number], [id number] #### Systems Security Analyst: SIERRA GUERRA ([phone]) [facility] ([facility]) [address] [place] [address] Anion gap [Moles/Vol] 9 mmol/L Normal 3-13 [facility] Comment on above: Performed By: #### L [id number], [id number], [id number] #### Systems Security Analyst: SIERRA GUERRA ([phone]) [facility] ([facility]) [address] [place] [address] AST [Catalytic activity/Vol] 37 U/L Normal 15-46 [facility] Comment on above: Performed By: #### L [id number], [id number], [id number] #### Systems Security Analyst: SIERRA GUERRA ([phone]) [facility] ([facility]) [address] [place] [address] Bilirubin [Mass/Vol] 0.8 mg/dL Normal 0.2-1.3 [facility] Comment on above: Performed By: #### L [id number], [id number], [id number] #### Systems Security Analyst: SIERRA GUERRA ([phone]) [facility] ([facility]) [address] [place] [address] Calcium [Mass/Vol] 9.1 mg/dL Normal 8.4-10.4 [facility] Comment on above: Performed By: #### L [id number], [id number], [id number] #### Systems Security Analyst: SIERRA GUERRA ([phone]) [facility] ([facility]) [address] [place] [address] Chloride [Moles/Vol] 99 mmol/L Normal 98-107 [facility] Comment on above: Performed By: #### L [id number], [id number], [id number] #### Systems Security Analyst: SIERRA GUERRA ([phone]) [facility] ([facility]) [address] [place] [address] CO2 [Moles/Vol] 27 mmol/L Normal 22-30 [facility] Comment on above: Performed By: #### L [id number], [id number], [id number] #### Systems Security Analyst: SIERRA GUERRA ([phone]) [facility] ([facility]) [address] [place] [address] Creatinine [Mass/Vol] 1.25 mg/dL Normal 0.66-1.25 [facility] Comment on above: Performed By: #### L [id number], [id number], [id number] #### Systems Security Analyst: SIERRA GUERRA ([phone]) [facility] ([facility]) [address] [place] [address] [place] GLOMERULAR FILTRATION RATE ML/MIN/1.73 SQ M.PREDICTED 61.6 mL/min/1.73m*2 Normal >60.0 [facility] Comment on above: Result Comment: Calc ulation based on the Chronic Kidney Disease Epidemiology Collaboration (CKD-EPI) equation refit without adjustment for race Performed By: #### L [id number], [id number], [id number] #### Systems Security Analyst: SIERRA GUERRA ([phone]) [facility] ([facility]) [address] [place] [address] Glucose [Mass/Vol] 90 mg/dL Normal 70-100 [facility] Comment on above: Performed By: #### L [id number], [id number], HKL851 #### Systems Security Analyst: SIERRA GUERRA ([phone]) [facility] ([facility]) [address] [place] [address] Potassium [Moles/Vol] 4.3 mmol/L Normal 3.5-5.1 [facility] Comment on above: Performed By: #### L [id number], [id number], [id number] #### Systems Security Analyst: SIERRA GUERRA ([phone]) [facility] ([facility]) [address] [place] [address] Protein [Mass/Vol] 8.4 g/dL High 6.3-8.2 [facility] Comment on above: Performed By: #### L [id number], [id number], [id number] #### Systems Security Analyst: SIERRA GUERRA ([phone]) [facility] ([facility]) [address] [place] [address] Sodium [Moles/Vol] 135 mmol/L Normal 135-145 [facility] Comment on above: Performed By: #### L [id number], [id number], [id number] #### Systems Security Analyst: SIERRA GUERRA ([phone]) [facility] ([facility]) [address] [place] [address] Urea nitrogen [Mass/Vol] 21 mg/dL High 9-20 [facility] Comment on above: Performed By: #### L [id number], [id number], [id number] #### Systems Security Analyst: SIERRA GUERRA ([phone]) [facility]) [address] [place] [address] CT HEAD WO IV CONTRASTon CT HEAD WO IV CONTRAST Patient Name: CORY ALVARADO : 1950 Exam Date/Time: 06/13/2023 23:50 Procedure: CT HEAD WO IV CONTRAST Ordering Provider: BORJAS MARY Reason For Exam: Mental status change, unknown cause CT head without contrast History: Mental status changes Protocol: 3 mm axial images without IV contrast Dose reduction was employed with automated exposure control. There is no evidence of intracranial hemorrhage, extra-axial fluid collection, hydrocephalus, or acute infarct. Chronic white matter ischemic changes. No evidence of a mass of mass affect. The visualized portions of the paranasal sinuses and the mastoid air cells are clear. IMPRESSION: No acute findings. Report Dictated on Electronically Signed By: Scottie Rock MD Electronically Signed Date/Time: 06/13/2023 11:51 PM EST Normal [facility] Comprehensive metabolic 1998 panelon 06-14-2023 Albumin [Mass/Vol] 4.5 g/dL 3.5 - 5.0 g/dL [facility] ALP [Catalytic activity/Vol] 91 U/L 38 - 126 U/L [facility] ALT [Catalytic activity/Vol] 27 U/L 0 - 49 U/L [facility] Anion gap [Moles/Vol] 10 mmol/L 3 - 13 mmol/L [facility] AST [Catalytic activity/Vol] 42 U/L 15 - 46 U/L [facility] Bilirubin [Mass/Vol] 1.0 mg/dL 0.2 - 1 .3 mg/dL [facility] Calcium [Mass/Vol] 9.1 mg/dL 8.4 - 10. 4 mg/dL [facility] Chloride [Moles/Vol] 101 mmol/L 98 - 10 7 mmol/L [facility] CO2 [Moles/Vol] 23 mmol/L 22 - 30 mmol/L [facility] Creatinine [Mass/Vol] 1.10 mg/dL 0.66 - 1.25 mg/dL [facility] GFR/1.73 sq M.predicted MDRD (S/P/Bld) [Vol rate/Area] 71.8 mL/min/{1.73_m2} - PINF [facility] Comment on above: Calculation based on the Chronic Kidney Disease Epidemiology Collaboration (CKD-EPI) equation refit without adjustment for race Glucose [Mass/Vol] 84 mg/dL 70 - 100 mg/dL [facility] Interpretation and review of laboratory results Abnormal [facility] Potassium [Moles/Vol] 4.1 mmol/L 3.5 - 5.1 mmol/L [facility] Protein [Mass/Vol] 9.0 g/dL High 6.3 - 8.2 g/dL [facility] Sodium [Moles/Vol] 135 mmol/L 135 - 145 mmol/L [facility] Urea nitrogen [Mass/Vol] 21 mg/dL High 9 - 20 mg/d L [facility] ED Nursing Noteon 06-14-2023 ED Nursing Note Pt sleeping, audible snoring noted. Equal and bilateral chest rise Ze Escalonaus 06/14/23 0050 Normal [facility] ED Nursing Note Pt states that at this time he does not have to urinate. Will attempt to get the urine sample at a later time Jessy Dewitt, EMT 06/13/23 2311 Normal [facility] ETHANOLon 06-14-2023 ETHANOL IN SER/PLAS <0.010 Normal 0.000-0.010 [facility] Comment on above: Result Comment: FOX Rey COMMENTS: NOTE: This result is for medical treatment only. Analysis performed using non-forensic procedures. Performed By: #### L [id number], [id number], [id number] #### Systems Security Analyst: SIERRA GUERRA ([phone]) [address] FREE T4on 06-14-2023 Free T4 [Mass/Vol] 1.25 ng/dL Normal 0.78-2.19 [facility] Comment on above: Performed By: #### L [id number], MZU408, QYQ407 #### Systems Security Analyst: SIERRA GUERRA ([phone]) [address] LACTIC ACID WITH REFLEXon Lactate [Moles/Vol] 1.1 mmol/L Normal 0.7-2.0 [facility] Comment on above: Performed By: #### L [id number] ####Systems Security Analyst: SIERRA GUERRA ([phone])[facility])[address] [place] [address] Laboratory - Chemistry and C hemistry - challengeon 06-14-2023 Troponin I.cardiac [Mass/Vol] 0.019 ng/mL NINF - 0.034 ng/mL [facility] TSH Qn 1.317 m[IU]/L [facility] No Panel Informationon 06-14 Impression: No radiographic evidence of radiopaque orbital foreign body. Report Dictated on Electronically Signed By: Mike Tariq MD Electronically Signed Date/Time: 06/14/2023 1:31 PM [facility] Patient Name: CORY MUELLER : 1950 Exam Date/Time: 06/14/2023 13:26 Procedure: XR EYE FOREIGN BODY RIGHT Ordering Provider: HAY AMY Reason For Exam: MRI clearance Examination: Orbits Clinical Indication: Rule out metallic foreign body, MRI clearance Comparison: None Findings: AP and lateral views of the orbits demonstrates no evidence of radiopaque foreign body within the orbits. The orbits appear symmetric and grossly intact. Paranasal sinuses and visualized mastoids are grossly pneumatized. No gross osseous abnormality is noted. Ataf-gi-fypjmgwl cervical spondylosis. Patient is edentulous. [facility] Mike Tariq MD - 06/14/2023 Patient Name: CORY MUELLER : 1950 Exam Date/Time: 06/14/2023 13:26 Procedure: XR EYE FOREIGN BODY RIGHT Ordering Provider: HAY AMY Reason For Exam: MRI clearance Examination: Orbits Clinical Indication: Rule out metallic foreign body, MRI clearance Comparison: None Findings: AP and lateral views of the orbits demonstrates no evidence of radiopaque foreign body within the orbits. The orbits appear symmetric and grossly intact. Paranasal sinuses and visualized mastoids are grossly pneumatized. No gross osseous abnormality is noted. Cmuq-yk-kkhyhwhf cervical spondylosis. Patient is edentulous. IMPRESSION: Impression: No radiographic evidence of radiopaque orbital foreign body. Report Dictated on Electronically Signed By: Mike Tariq MD Electronically Signed Date/Time: 06/14/2023 1:31 PM EST [facility] Radiology Study observation (narrative) [facility] No Panel InformationOrdered By: Mike Tariq on 06-14-2023 [facility] Work Phone: Nursing Noteon 06-14-2023 Nursing Note Pt arrives to room 629 he is currently AOx4, denies pain. He states the grocery store called the ambulance because he was unaware how he need up there. No open areas on his skin, same is pink warm and dry. Addendum: During assessment, pt does ask the same question a number of times and does not recall doing so. Normal [facility] PROTHROMBIN TIMEon INR Coag (PPP) [Relative time] 1.0 {INR} Normal 0.9-1.1 [facility] Comment on above: Result Comment: Emigdio mmended Anticoagulant Therapy: SEE BELOW ----- INR of [...] therapy is used to prevent Myocardial Infarction Performed By: #### L [id number] ####Systems Security Analyst: SIERRA GUERRA ([phone])[address] PT Coag (PPP) [Time] 10.4 s Normal 9.0-12.0 [facility] Comment on above: Performed By: #### L [id number] ####Systems Security Analyst: SIERRA GUERRA ([phone])[address] Progress Noteon 06-14-2023 Progress Note [facility] Geriatric Medicine Inpatient Consult Service Admission Date: 06/13/2023 Consult Date: 06/14/2023 Consult reason: Episode of confusion and wondering to bob couch, unclear etiology. MMSE 20. Concerns for safety at home Geriatric consult acknowledged. Please contact covering physician via Secure Chat with urgent questions or concerns. Consult will be completed on next . Nedra White MD 06/14/2023 2:55 PM Normal [facility] Progress Note Pt may not be aware Normal [facility] THYROID STIMULATING HORMONEo n 06-14-2023 THYROID STIMULATING HORMONE 1.317 uIU/mL Normal 0.465-4.680 [facility] Comment on above: Performed By: #### L [id number], [id number], [id number] #### Systems Security Analyst: SIERRA GUERRA ([phone]) [facility] ([facility]) [address] [place] [address] [place] TROPONIN Ion 06-14-2023 Troponin I.cardiac [Mass/Vol] 0.019 ng/mL Normal <0.034 [facility] Comment on above: Result Comment: FOX Rey COMMENTS: Patients with high levels of Biotin oral intake (ie >5 mg/day) may have falsely decreased Troponin levels. Performed By: #### L [id number], LAB17 ####Systems Security Analyst: SIERRA GUERRA ([phone])[facility] ([facility])[address] [place] [address] TROPONIN, WITH SERIAL REFLEX on 06-14-2023 Troponin I.cardiac [Mass/Vol] 0.019 ng/mL Normal <0.034 [facility] Comment on above: Result Comment: FOX Rey COMMENTS: Patients with high levels of Biotin oral intake (ie >5 mg/day) may have falsely decreased Troponin levels. Performed By: #### L [id number], MCR199, AUK542 #### Systems Security Analyst: SIERRA GUERRA ([phone]) [facility] ([facility]) [address] [place] [address] [place] TSH Qnon 06-14-2023 Interpretation and review of laboratory results Normal [facility] Troponin I.cardiac [Mass/Vol ]on 06-14-2023 Interpretation and review of laboratory results Normal [facility] Patients with high levels of Biotin oral intake (ie >5 mg/day) may have falsely decreased Troponin levels. [facility] XR ABDOMEN 1 VIEWon 06-14-19 24 XR ABDOMEN 1 VIEW Patient Name: CORY MUELLER : 1950 Exam Date/Time: 06/14/2023 13:25 Procedure: XR ABDOMEN 1 VIEW Ordering Provider: HAY AMY Reason For Exam: mri clearance ABDOMEN, 1 VIEW. CLINICAL INFORMATION: MRI clearance TECHNIQUE: Supine abdomen, 2 image(s) COMPARISON: CT abdomen/pelvis 08/17/2009 RESULT: Impression. IMPRESSION: No metallic foreign body or electronic device. Gas-filled nondilated colon. Paucity of small bowel gas. No gas-filled dilated loops of bowel. Pelvic limits. Degenerative changes of the lumbosacral junction. Report Dictated on Electronically Signed By: Derick Tai MD Electronically Signed Date/Time: 06/14/2023 4:19 PM EST Normal [facility] XR Abdomen Single viewon No metallic foreign body or electronic device. Gas-filled nondilated colon. Paucity of small bowel gas. No gas-filled dilated loops of bowel. Pelvic limits. Degenerative changes of the lumbosacral junction. Report Dictated on Electronically Signed By: Derick Tai MD Electronically Signed Date/Time: 06/14/2023 4:19 PM [facility] [employer] [facility] Patient Name: CORY MUELLER : 1950 Exam Date/Time: 06/14/2023 13:25 Procedure: XR ABDOMEN 1 VIEW Ordering Provider: HAY AMY Reason For Exam: mri clearance ABDOMEN, 1 VIEW. CLINICAL INFORMATION: MRI clearance TECHNIQUE: Supine abdomen, 2 image(s) COMPARISON: CT abdomen/pelvis 08/17/2009 RESULT: Impression. [facility] Derick Tai MD - 06/14/2023 Patient Name: CORY MUELLER : 1950 Exam Date/Time: 06/14/2023 13:25 Procedure: XR ABDOMEN 1 VIEW Ordering Provider: HAY AMY Reason For Exam: mri clearance ABDOMEN, 1 VIEW. CLINICAL INFORMATION: MRI clearance TECHNIQUE: Supine abdomen, 2 image(s) COMPARISON: CT abdomen/pelvis 08/17/2009 RESULT: Impression. IMPRESSION: No metallic foreign body or electronic device. Gas-filled nondilated colon. Paucity of small bowel gas. No gas-filled dilated loops of bowel. Pelvic limits. Degenerative changes of the lumbosacral junction. Report Dictated on Electronically Signed By: Derick Tai MD Electronically Signed Date/Time: 06/14/2023 4:19 PM EST adjust [facility] Radiology Study observation (narrative) [facility] XR Abdomen Single viewOrdere d By: Derick Tai on 06-14-2023 [email or web address] Work Phone: XR EYE FOREIGN BODY RIGHTon 06-14-2023 XR EYE FOREIGN BODY RIGHT Patient Name: CORY MUELLER : 1950 Exam Date/Time: 06/14/2023 13:26 Procedure: XR EYE FOREIGN BODY RIGHT Ordering Provider: HAY AMY Reason For Exam: MRI clearance Examination: Orbits Clinical Indication: Rule out metallic foreign body, MRI clearance Comparison: None Findings: AP and lateral views of the orbits demonstrates no evidence of radiopaque foreign body within the orbits. The orbits appear symmetric and grossly intact. Paranasal sinuses and visualized mastoids are grossly pneumatized. No gross osseous abnormality is noted. Ojzc-hx-rbswsytr cervical spondylosis. Patient is edentulous. IMPRESSION: Impression: No radiographic evidence of radiopaque orbital foreign body. Report Dictated on Electronically Signed By: Mike Tariq MD Electronically Signed Date/Time: 06/14/2023 1:31 PM EST Normal [facility] CBC W Auto Differential pane l (Bld)Ordered By: Suha Saenz on 06-13-2023 Basophils (Bld) [#/Vol] 0.0 10*3/uL 0.0 - 0.2 10*3/uL [facility] Basophils/100 WBC (Bld) 0.6 % 0.0 - 2.0 % [facility] Eosinophils (Bld) [#/Vol] 0.1 10*3/uL 0.0 - 0.5 10*3/uL [facility] Eosinophils/100 WBC (Bld) 1.6 % 1.0 - 6.0 % [facility] Erythrocyte distribution width (RBC) [Ratio] 14.5 % 11.5 - 14.5 % [facility] Hematocrit (Bld) [Volume fraction] 41.9 % 40.0 - 52.0 % [facility] Hemoglobin (Bld) [Mass/Vol] 14.6 g/dL 13.0 - 18.0 g/dL [facility] Interpretation and review of laboratory results Abnormal [facility] Lymphocytes (Bld) [#/Vol] 0.9 10*3/uL Low 1.0 - 4.3 10*3/uL [facility] Lymphocytes/100 WBC (Bld) 16.5 % Low 20.0 - 40.0 % [facility] MCH (RBC) [Entitic mass] 29.1 pg 26.0 - 34.0 pg [facility] MCHC (RBC) [Mass/Vol] 34.8 % 32.0 - 36.0 % [facility] MCV (RBC) [Entitic vol] 83.5 fL 80.0 - 98.0 fL [facility] Monocytes (Bld) [#/Vol] 0.7 10*3/uL 0.0 - 0.8 10*3/uL [facility] Monocytes/100 WBC (Bld) 12.0 % High 2.0 - 10.0 % [facility] Neutrophils (Bld) [#/Vol] 4.0 10*3/uL 1.8 - 7.0 10*3/uL [facility] Neutrophils/100 WBC (Bld) 69.3 % 40.0 - 80.0 % [facility] Nucleated RBC/100 WBC (Bld) [Ratio] 0.1 % [facility] Platelet mean volume (Bld) [Entitic vol] 8.4 fL 7.4 - 12.4 fL [facility] Platelets (Bld) [#/Vol] 198 10*3/uL 140 - 440 10*3/uL [facility] RBC (Bld) [#/Vol] 5.01 10*6/uL 4.40 - 5.9 0 10*6/uL [facility] WBC (Bld) [#/Vol] 5.7 10*3/uL 3.6 - 10.7 10*3/uL [facility] CT Head WO contraston 2023 No acute findings. Report Dictated on Electronically Signed By: Scottie Rock MD Electronically Signed Date/Time: 06/13/2023 11:51 PM [facility] Patient Name: CORY MUELLER : 1950 Exam Date/Time: 06/13/2023 23:50 Procedure: CT HEAD WO IV CONTRAST Ordering Provider: BORJAS MARY Reason For Exam: Mental status change, unknown cause CT head without contrast History: Mental status changes Protocol: 3 mm axial images without IV contrast Dose reduction was employed with automated exposure control. There is no evidence of intracranial hemorrhage, extra-axial fluid collection, hydrocephalus, or acute infarct. Chronic white matter ischemic changes. No evidence of a mass of mass affect. The visualized portions of the paranasal sinuses and the mastoid air cells are clear. [facility] Scottie Rock MD - 06/13/2023 Patient Name: CORY MUELLER : 1950 Exam Date/Time: 06/13/2023 23:50 Procedure: CT HEAD WO IV CONTRAST Ordering Provider: BORJAS MARY Reason For Exam: Mental status change, unknown cause CT head without contrast History: Mental status changes Protocol: 3 mm axial images without IV contrast Dose reduction was employed with automated exposure control. There is no evidence of intracranial hemorrhage, extra-axial fluid collection, hydrocephalus, or acute infarct. Chronic white matter ischemic changes. No evidence of a mass of mass affect. The visualized portions of the paranasal sinuses and the mastoid air cells are clear. IMPRESSION: No acute findings. Report Dictated on Electronically Signed By: Scottie Rock MD Electronically Signed Date/Time: 06/13/2023 11:51 PM [facility] Radiology Study observation (narrative) [facility] CT Head WO contrastOrdered B y: Scottie Rock on 06-13-2023 [facility] Work Phone: Comprehensive metabolic 1998 panelon 06-13-2023 Albumin [Mass/Vol] 4.3 g/dL 3.5 - 5.0 g/dL [facility] ALP [Catalytic activity/Vol] 89 U/L 38 - 126 U/L [facility] ALT [Catalytic activity/Vol] 27 U/L 0 - 49 U/L [facility] Anion gap [Moles/Vol] 9 mmol/L 3 - 13 mmol/L [facility] AST [Catalytic activity/Vol] 37 U/L 15 - 46 U/L [facility] Bilirubin [Mass/Vol] 0.8 mg/dL 0.2 - 1 .3 mg/dL [facility] Calcium [Mass/Vol] 9.1 mg/dL 8.4 - 10. 4 mg/dL [facility] Chloride [Moles/Vol] 99 mmol/L 98 - 10 7 mmol/L [facility] CO2 [Moles/Vol] 27 mmol/L 22 - 30 mmol/L [facility] Creatinine [Mass/Vol] 1.25 mg/dL 0.66 - 1.25 mg/dL [facility] GFR/1.73 sq M.predicted MDRD (S/P/Bld) [Vol rate/Area] 61.6 mL/min/{1.73_m2} - PINF [facility] Comment on above: Calculation based on the Chronic Kidney Disease Epidemiology Collaboration (CKD-EPI) equation refit without adjustment for race Glucose [Mass/Vol] 90 mg/dL 70 - 100 mg/dL [facility] Interpretation and review of laboratory results Abnormal [facility] Potassium [Moles/Vol] 4.3 mmol/L 3.5 - 5.1 mmol/L [facility] Protein [Mass/Vol] 8.4 g/dL High 6.3 - 8.2 g/dL [facility] Sodium [Moles/Vol] 135 mmol/L 135 - 145 mmol/L [facility] Urea nitrogen [Mass/Vol] 21 mg/dL High 9 - 20 mg/d L [facility] ED Provider Noteon ED Provider Note Emergency Department Encounter [facility] Patient: Cory Mueller : 1950 Date of Evaluation: 06/13/2023 ED Supervising Physician: Elham Borjas DO I personally evaluated Cory Mueller and [...] memory loss. Patient found wandering near [place] by EMS some memory loss from tonight. [...] contact the dictating provider for clarification.) Elham Borjas, DO [employer] Elham Borjas, DO 06/18/23 191 [facility] ED Provider Note EMERGENCY DEPARTMENT ENCOUNTER Pt Name: Cory Mueller Birthdate 1950 Date of evaluation: 06/13/2023 ED Provider: Elpidio Sorenson MD CHIEF COMPLAINT Chief Complaint Patient presents with Altered Mental Status Pt is brought into the ED by EMS. Per EMS the pt was found wandering [place] the [place] [facility]. Pt states that he lives in [place]. Pt states that he remembers getting on [...] bus today on his way to [place]. Patient states that he does not recall [...] his name and that we are in [place] and that it is May. When asked [...] speech difficulty, weakness, light-headedness, numbness and headaches. Psychiatric/Behavior al: Positive for confusion. Negative for agitation. All [...] sounds: Normal heart sounds. No murmur heard. Pulmonar (more content not included)... Normal [facility] Ethanol (Bld) [Mass/Vol]on 0 06-13-2023 Ethanol [Mass/Vol] g/dL 0.000 - 0 .010 g/dL [facility] Interpretation and review of laboratory results Normal [facility] Free T4 [Mass/Vol]on 024 Free T4 Dialysis [Mass/Vol] 1.25 ng/dL 0.78 - 2.19 ng/dL [facility] Interpretation and review of laboratory results Normal [facility] Laboratory - Chemistry and C hemistry - challengeon 06-13-2023 Troponin I.cardiac [Mass/Vol] 0.019 ng/mL NINF - 0.034 ng/mL [facility] Lactate [Moles/Vol] 1.1 mmol/L 0.7 - 2. 0 mmol/L [facility] Ammonia (P) [Moles/Vol] umol/L Low 9 - 30 umol/ L [facility] Laboratory - Chemistry and C hemistry - challengeOrdered By: Jerilyn Pitt on 06-13-2023 Base excess Calc (BldV) [Moles/Vol] 1.8 mmol/L -3.0 - 3.0 mmol/L [facility] CO2 (BldV) [Partial pressure] 46.6 mm[Hg] [facility] CO2 [Moles/Vol] 28.9 mmol/L High 24.0 - 28.0 mmol/L [facility] HCO3 (Bld) [Moles/Vol] 27.4 mmol/L High 23.0 - 27.0 mmol/L [facility] Oxygen (BldV) [Partial pressure] 35.4 mm[Hg] [facility] pH (BldV) 7.388 [pH] 7.330 - 7.430 [facility] Laboratory - Coagulationon 0 06-13-2023 PT Coag (Bld) [Time] 10.4 s 9.0 - 12.0 s [facility] Laboratory - Hematology and Cell countsOrdered By: Jerilyn Pitt on 06-13-2023 Hemoglobin (Bld) [Mass/Vol] 15.3 g/dL Screen Only [facility] No Panel Informationon 06-13 [facility] Interpretation and review of laboratory results Normal [facility] Interpretation and review of laboratory results Abnormal [facility] No Panel InformationOrdered By: Jerilyn Pitt on 06-13-2023 Interpretation and review of laboratory results Abnormal [facility] Source Of Oxygen Room Air [facility] alth Interpret with caution, pO2 value falsely increased due to vacuum in tube. For accurate results, please draw on a syringe. [facility] PT Coag (Bld) [Time]on 06-13 INR Coag (PPP) [Relative time] 1.0 {INR} 0.9 - 1.1 [facility] Comment on above: Recommended Anticoag ulant Therapy: SEE BELOW ----- INR of 2.0 [...] therapy is used to prevent Myocardial Infarction Interpretation and review of laboratory results Normal [facility] Troponin I.cardiac [Mass/Vol ]on 06-13-2023 Interpretation and review of laboratory results Normal [facility] Patients with high levels of Biotin oral intake (ie >5 mg/day) may have falsely decreased Troponin levels. [facility] Vital signsOrdered By: Jace Pitt on 06-13-2023 Oxygen saturation in Venous blood 61.6 % 60.0 - 80.0 % [facility] XR Chest Single viewon 06-13 1. No acute findings. Report Dictated on Electronically Signed By: Ed Valdez MD Electronically Signed Date/Time: 06/13/2023 11:07 PM [facility] Patient Name: CORY MUELLER : 1950 Exam Date/Time: 06/13/2023 23:00 Procedure: XR CHEST 1 VIEW Ordering Provider: BORJAS MARY Reason For Exam: ALTERED MENTAL STATUS CHEST PORTABLE CLINICAL INDICATION: ALTERED MENTAL STATUS TECHNIQUE: Portable chest x-ray(s). COMPARISON: None. FINDINGS: Cardiac and mediastinal silhouette within normal limits. Lungs are grossly clear. No significant vascular congestion. No apparent pneumothorax. Degenerative change in the thoracic spine. [facility] Ed Valdez MD - 06/13/2023 Patient Name: CORY MUELLER : 1950 Exam Date/Time: 06/13/2023 23:00 Procedure: XR CHEST 1 VIEW Ordering Provider: BORJAS MARY Reason For Exam: ALTERED MENTAL STATUS CHEST PORTABLE CLINICAL INDICATION: ALTERED MENTAL STATUS TECHNIQUE: Portable chest x-ray(s). COMPARISON: None. FINDINGS: Cardiac and mediastinal silhouette within normal limits. Lungs are grossly clear. No significant vascular congestion. No apparent pneumothorax. Degenerative change in the thoracic spine. IMPRESSION: 1. No acute findings. Report Dictated on Electronically Signed By: Ed Valdez MD Electronically Signed Date/Time: 06/13/2023 11:07 PM [facility] RooT Radiology Study observation (narrative) [facility] Chest Single viewOrdered By: Ed Valdez on 06-13-2023 [email or web address] Work Phone: Claudio 01-12-2022 [facility] Telephone (TRACFW) CORY MUELLER ([id number]) 1950 M Date Time Provider Department 01/12/22 [facility] TRACFW During your visit today, we recorded the following information about you: Mihir Bower 01/12/2022 7:23 AM Signed Patient emailed me and said that he was able to get in with the drug department worker that he was referred to and that he does not want to come here anymore. I told him that we are here if he changes his mind Allergies As of Date: 01/12/2022 (Not on File) Date Reviewed: Never Reviewed Reason for Visit: Appointment [186] Problem List As Of Date: 01/12/2022 (None) Encounter Status:Closed by MIHIR BOWER on 01/12/22 [facility] Vital Signs Date Time Vital Sign Value Performing Clinician Ada fofana 07-02-2023 07:32-0500 Body temperature 97.59 [degF] Wing[facility] Phone: [email or web address] 07-02-2023 07:32-0500 Diastolic blood pressure 82 mm[Hg] [facility] Phone: [email or web address] 07-02-2023 07:32-0500 Heart rate 70 /min [facility] Phone: [email or web address] 07-02-2023 07:32-0500 Respiratory rate 12 /min [facility] Phone: [email or web address] 07-02-2023 07:32-0500 SaO2% (BldA) [Mass fraction] 96 % [facility] Phone: [email or web address] 07-02-2023 07:32-0500 Systolic blood pressure 138 mm[Hg] [facility] Phone: [email or web address] 06-17-2023 10:00-0500 Body mass index (BMI) [Ratio] 20.08 kg/m2 [facility] Phone: [email or web address] 06-17-2023 10:00-0500 Body weight 65.32 kg Elham Borjas DO Work Phone: [facility] 06-17-2023 07:35-0500 Body height 180.3 cm Elham Borjas DO Work Phone: [facility] Comment on above: per chart, pt est 6' Encounters Encounter Date Encounter Type Care Provider Facility Start: 09-11-2024 End: 09-11-2024 ambulatory Yo KUHN Facility:[facility] Start: 04-13-2024 End: 04-13-2024 ambulatory Yo KUHN Facility:[facility] Start: 03-13-2024 End: 03-13-2024 ambulatory Yo KUHN Facility:[facility] Start: 07-17-2023 End: 07-17-2023 ambulatory [facility] Work Phone: Start: 07-17-2023 End: 07-17-2023 Departed Referred [facility] [address] Start: 07-03-2023 Registered Referred [facility] [address] Start: 06-16-2023 End: 06-16-2023 Evaluation and management of inpatient [facility] Start: 06-13-2023 End: 07-02-2023 Evaluation and management of inpatient [facility] Start: 06-13-2023 End: 07-02-2023 Evaluation and management of inpatient Elham Borjas DO Work Phone: [facility] Comment on above: Delirium (Primary Dx ); Cognitive impairment Start: 01-04-2018 End: 01-04-2018 Patient encounter [facility] Procedures Date Procedure Procedure Detail Performing Clinician [...] 06-14-2023 Radiologic exam abdomen 1 view Kenneth michellei DO Work Phone: Start: 06-14-2023 Comprehensive metabolic [...] Vaccine ( season) COVID-19 Vaccine ( season) [facility] Start: 01-18-2023 Influenza vaccination Influenza Vacc ine (#1) [facility] Start: 01-17-2019 Screening for malign ant neoplasm of colon [facility] Start: 2011 RSV Immunization age d 60 or older (1 - 1-dose 60+ series) RSV Immunization aged 60 or older (1 - 1-dose 60+ series) [facility] Start: 11-27-2001 Zoster Vaccines (1 of 2) Zoster Vacc jenelle (1 of 2) [facility] Start: 11-27-1970 DTaP/Tdap/Td Vaccine s (1 - Tdap) DTaP/Tdap/Td Vaccines (1 - Tdap) [facility] Start: 11-27-1970 Hepatitis A Vaccines (1 of 2 - Risk 2-dose series) Hepatitis A Vaccines (1 of 2 - Risk 2-dose series) [facility] Start: 11-27-1969 Hepatitis C screening Hepatitis C Sc reening [facility] Start: 1963 Depression Screening Depression Scre ening [facility] Start: 11-27-1957 Pneumococcal Vaccine : 65+ Years (1 of 2 - PCV) Pneumococcal Vaccine: 65+ Years (1 of 2 - PCV) [facility] Start: 1950 Lipid panel Lipid Panel [facility] Start: 1950 Medicare Advantage A nnual Wellness Visit (AWV) Medicare Advantage Annual Wellness Visit (AWV) [facility] Start: 1950 Screening for malign ant neoplasm of colon [facility] Fungus identified in Unspecified specimen by Culture Fungal Culture Microbiology Pending Discharge 06/17/2023 1:13 PM EST [facility] Work Phone: Immunizations Immunization Date Immunization Notes Care Provider Roberta kuhn 02-02-2021 influenza virus vacc ine, unspecified formulation Elham Borjas DO Work Phone: [facility] Payers Date Payer Category Payer Self-pay 2024 Unknown [id number] 2023 Medicaid [employer] UHC [place] MEDICAID ONLY [id number] 2023-Present [address] [place] [address] Medicaid HMO [id number] 2019 Medicare HUMANA MEDICARE ADVANTAGE HU[employer]NA MEDICARE [id number] 2019-Present [address] [address] [place] [address] Medicare HMO [id number] 2019 Medicare [id number] 1959 Unknown [id number] Unknown [id number] Unknown [id number] Unknown [id number] Social History Date Type Detail Facility [facility] History of tobacco use Cigarette Smoker [facility] Start: 06-13-2023 End: 06-14-2023 History of Social function [facility] Start: 06-13-2023 End: 06-14-2023 Alcohol Use Disorder Identification Test - Consumption [AUDIT-C] [facility] How often to you hav e a drink containing alcohol? Never [facility] How many standard dr inks containing alcohol do you have on a typical day? Patient does not drink [facility] Start: 1950 Sex Assigned At Not on file [facility] Start: 1950 Sex Assigned At Male [facility] Clinical Notes 06-13-2023 to 07-02-2023 Care Coordination - MYNOR Barragan - 07/02/2023 3:35 PM ESTCare Coordination - MYNOR Barragan - 07/02/2023 3:35 PM ESTCare Coordination - Nahomi Robertson - 07/02/2023 12:36 PM EST Note Date & Type Note Facility 07-02-2023 Note Late entry for 07-02. Referral made to [facility] 07-02-2023 Note Formatting of this n ote might be different from the original. Requested to arrange transport to [facility]. 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 Used cot due to delirium on admission, became disoriented at [facility] , cognitive impairment, lacks capacity to make medical decisions, headache of unknown etiology. Updated Ex -Violeta RN, Arc Trimmer, [facility] and TCC. Mcdaniel to contact the building analyst/supervisor where patient lives to check on rent payments. She will also arrange to take some belongs to the facility. MYNOR suggested she work with the Blocker And Polisher at the facility regarding future plans of returning home. Will make a [facility] referral for home assist and potential future Assisted Living. [facility] 07-02-2023 Note Formatting of this n ote might be different from the original. Requested to arrange transport to [facility]. 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 Used cot due to delirium on admission, became disoriented at [facility] , cognitive impairment, lacks capacity to make medical decisions, headache of unknown etiology. Updated Ex -Violeta RN, Arc Trimmer, [facility] and [facility]. Violeta to contact the building analyst/supervisor where patient lives to check on rent payments. She will also arrange to take some belongs to the facility. CASE MAKING MACHINE OPERATOR suggested she work with the Blocker And Polisher at the facility regarding future plans of returning home. Will make a [facility] referral for home assist and potential future Assisted Living. [facility] 07-02-2023 Miscellaneous Notes Requested to arrange transport to [facility]. 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 Used cot due to delirium on admission, became disoriented at [facility] , cognitive impairment, lacks capacity to make medical decisions, headache of unknown etiology. Updated Ex -KORIN Mcdaniel, Arc Trimmer, [facility] and [facility]. Violeta to contact the building analyst/supervisor where patient lives to check on rent payments. She will also arrange to take some belongs to the facility. CASE MAKING MACHINE OPERATOR suggested she work with the Blocker And Polisher at the facility regarding future plans of returning home. Will make a [facility] referral for home assist and potential future Assisted Living. Patient Choice Patient Name: CORY MUELLER Date of : 1950 All Providers Sent Referral Name: Rosalba Feliciano Phone: [phone] Address: [address] [place] [address] Name: [facility] Phone: [phone] Address: [address] [place] [address] Name: [facility] Phone: [phone] Address: [address] [place] [address] Name: [facility] Phone: [phone] Address: [address] [place] [address] Name: [facility] Phone: [phone] Address: [address] [place] [address] Name: [facility] Phone: [phone] Address: [address], [address] [place] [address] Name: [facility] Phone: [phone] Address: [address] [place] [address]000 was entered into [employer] for the SNF- [facility]. Discharge med list transmitted to SNF- [facility] via [facility] per TCC request. Chart reviewed. Spoke to patient at bedside re: info that both [facility] are able to accept. Patient stated he would prefer [facility]. Facility notified to start auth. Problem: Safety - Adult Goal: Free from fall injury Outcome: Progressing Problem: Neurosensory - Adult Goal: Achieves maximal functionality and self care Outcome: Progressing Problem: Safety - Adult Goal: Free from fall injury Outcome: Adequate for Discharge Problem: Discharge Planning Goal: Discharge to home or other facility with appropriate resources Outcome: Adequate for Discharge [facility] per TCC request. Await review and response regarding ability to accept. TCC notified. Received responses in [facility], [facility] are not able to accept. Spoke to patient at bedside and reviewed list. He would like referrals to [facility], [facility]. [facility] tasked to place referrals. Problem: Safety [...] hematologic stability Outcome: Progressing Referral placed to [facility] per TCC request. Await review and response regarding ability to accept. TCC notified. Provided patient at bedside a choice list. Discussed with patient need for facility with special care for patients with forgetfulness. He agreed and stated that he would prefer to go to a facility in the [facility]. We reviewed the list and he would like referrals to [place], [facility] and [facility]. [facility] tasked to place referrals. VM left [...] locations if she would be willing. Left with Violeta to discuss. SW notified of this conversation. Met with patient. [...] will follow patient if discharges home for [facility]. SW and TCC to continue to follow. [...] placement. Violeta reports patient does have a anc-Aufhv-psq lives with patient's sister- Gabriela although they do not get along, have not seen each other for a year and patient denies Sandro is his son. Will ask patient if wants to name Violeta as his HCPOA and if so can assist with paperwork. Will follow. Stockroom Worker following case for Discharge Needs. Spoke to Dr. Fagan in office today. She stated that [facility] would likely be able to follow patient in the community until a PCP can be established through home visits. Adam Mcguire, tasked in careport with this information so that patient can have HHC at discharge. I placed calls to multiple home visit companies: -[facility] at [phone] -unable to accept, does not take his insurance -[facility]: [phone] -left [facility] at [phone] -patient lives out of area/ provided me with number [phone] -spoke to Violeta at above number, who stated patient needs a provider to qualify and he is out of her area ([place])/ she transferred me to [facility] to see if they would make an exception to see. Spoke to Gilda who stated an exception to provider rule is unlikely but provided me with number [phone] and stated should talk to Sierra Avendano, the pastry assistant. -[employer] at [phone] -spoke to Violeta. She stated they are at capacity and on an 8 week wait list. I provided her with patient information and Gabriela Mueller's number (sister) for contact if and when they may be able to accept. Patient did not have a phone number in his chart. Number to call and inquire about set up, place on list is [phone]. Chart reviewed. Geriatric MD to see today [...] his PCP. He agrees. Placed call to [facility] and left VM to set up home visits. TCC and SW to continue to follow Also spoke with sister-Gabriela regarding HCPOA-she is willing. Did explain what all that means and she would be the contact in the future regarding medical issues. Will work with patient on paperwork. Contacted sister- Gabriela Mueller-[phone]. She states she and family have not [...] Intake Outcome: Progressing Social Work consulted for housing-patient kicked out of his apartment. Reviewed chart, met with patient to discuss. Patient states he was kicked out of his apartment-[facility] housing in [place] for smoking in his apartment. CASE MAKING MACHINE OPERATOR contacted [employer]-left message. Call received back from Yudith landa to the building analyst/supervisor-Saloni Nance. Yudith stated patient is not kicked [...] he has capacity) for discharge, ie homeless assisted, medicaid for ECF. TCC to continue to follow. Interventional Radiology Brief Postprocedure Note Procedure: IR lumbar puncture Preprocedure Diagnosis: AMS with unknown cause Postprocedure Diagnosis: no change Staff: Staff Role Emily Irvin RN Radiology Nurse Abraham Deng MD Radiologist Henry Crow, RT (R) Sack Sewer RT Nahid (R) Sack Sewer Description of procedure: fluoroscopically guided lumbar puncture [...] chronic) Permission given to speak with patient field sales representative/caregiver as indicated: (no EC noted. Patient did state that he has a sister Gabriela in [place] and another sister in [place]) Confirmation of Payer with patient/family: Yes Payer Name: [facility] Medicare/[facility]- medicaid only [place]: No Confirmation of Primary Care Physician: No [...] Stefanie Lipscomb RN documented in this encounter [facility] 07-02-2023 Note Formatting of this n ote might be different from the original. Patient Choice Patient Name: CORY MUELLER Date of : 1950 All Providers Sent [facility] Phone: [phone] Address: [facility] [address] Name: [facility] Phone: [phone] Address: [address] [id number] Name: [facility]. Phone: [phone] Address: [address] [place] [address] [facility] Phone: [phone] Address: [address] [place] [address] Name: [facility] Phone: [phone] Address: [address] [place] [address] Name: [facility] Phone: [phone] Address: [address], [address] [place] [address] Name: [facility] Phone: [phone] Address: [address] [place] [address] [facility] 07-02-2023 Note Formatting of this n ote might be different from the original. Patient Choice Patient Name: CORY MUELLER Date of : 1950 All Providers Sent [facility]erral [facility] Phone: [phone] Address: [facility] [place] [address] Name: [facility] Phone: [phone] Address: [address] [place] [address] Name: [facility] Phone: [phone] Address: [address] [place] [address] Name: [facility] Phone: [phone] Address: [address] [place] [address] Name: [facility] Phone: [phone] Address: [address] [place] [address] Name: [facility] Phone: [phone] Address: [address] [place] [address] Name: [facility] Phone: [phone] Address: [address] [place] [address] [facility] 07-02-2023 History of Presen t illness Narrative Discharge instructions printed and placed in packet. Patient has no IV. Report called to [facility]. Transport scheduled to come around 1500. Med Team Progress Note Cory Mueller : 1950(72 y.o.) Date: July 02, 2023 Med Team: Rasta Attending: Dr. Fagan [...] sleep hygiene - Limit light disturbance between 9771-2019 - Minimize auditory stimulation - Open blinds/turn [...] to SNF today 7AM-5PM: contact resident on [facility] Med A (find by hovering over attending's [...] excedrin ordered. Med Team Progress Note Cory Mueller : 1950(72 y.o.) Date: July 01, 2023 Med Team: A Attending: Dr. Fagan [...] communicates just wants to be somewhere in [facility]. Though he does not have decisional capacity regarding is ability to safely live independently in community I do think we should continue to consider his preferences regarding SNF. -D/W TCC 7AM-5PM: contact resident on [facility] Med A (find by hovering over attending's name on left side of patient's chart) 5PM-7AM: contact AI3 [facility] Patient has had trouble sleeping since admission, [...] be monitored and followed by the diet rf technician. Med Team Progress Note Cory Minda Mueller : 1950(72 y.o.) Date: June 30, 2023 [...] -no new complaints. 7AM-5PM: contact resident on [facility] Med A (find by hovering over attending's name on left side of patient's chart) 5PM-7AM: contact AI3 res Med Team Progress Note Cory Mueller : 1950(72 y.o.) Date: June 29, 2023 Med Team: Rasta Attending: Dr. Fagan Chief Complaint: confusion and decreased memory Subjective: Overnight events: RAQUEL Patient seen this morning mentioned continued bilateral [...] with assistance of Dr. Fagan and MONSTER Lipsocmb. Awaiting placement currently. Delirium Cognitive impairment - [...] - Diet: General Disposition: Continue admission to [facility] pending acceptance to SNF Associated attestation - Nickie Fagan DO - 06/29/2023 1:29 PM EST I saw and evaluated the patient. I agree with the findings and plan of care as documented in the resident's note, except as noted in Green text. Patient seen and examined personally during bedside teaching rounds (Date of Service: 06/29/23) -no new complaints 7AM-5PM: contact resident on [facility] Med A (find by hovering over attending's name on left side of patient's chart) 5PM-7AM: contact AI3 res Med Team Progress Note Cory Mueller : 1950(72 y.o.) Date: June 28, 2023 Med Team: A Attending: Dr. Fagan Chief Complaint: Confusion and decreased memory Subjective: - No acute events overnight. - Currently, patient is resting comfortably in bed. Denies recollection of selecting possible placement for SNF yesterday but seems satisfied with staying close to the [facility]. Patient continues to endorse a [...] of Service: 06/28/23) 7AM-5PM: contact resident on [facility] Med A (find by hovering over attending's name on left side of patient's chart) 5PM-7AM: contact 3 [facility] Med Team Progress Note Cory Mueller : 1950(72 y.o.) Date: June 27, 2023 Med Team: Rasta Attending: Dr. Fagan [...] Expressed to me interested in facility in [facility]. List at bedside. Though pt has been found to lack capacity for discharge decisions especially in level of care needed I do think we should consider his desire to remain in [facility]. 7AM-5PM: contact resident on [facility] Med A (find by hovering over attending's name on left side of patient's chart) 5PM-7AM: contact AI3 res Med Team Progress Note Cory Mueller : 1950(72 y.o.) Date: June 26, 2023 Med Team: A Attending: Dr. Fagan [...] can improve symptoms 7AM-5PM: contact resident on [facility] Med A (find by hovering over attending's name on left side of patient's chart) 5PM-7AM: contact AI3 res Nutrition update completed. Chart reviewed. Patient to be monitored and followed by the diet rf technician. Med Team Progress Note Cory Mueller : 1950(72 y.o.) Date: June 25, 2023 Med Team: A Attending: Dr. Fagan [...] of Sevice: 06/25/23) 7AM-5PM: contact resident on [facility] Huber A (find by hovering over attending's name [...] in apt alone. 7AM-5PM: contact resident on [facility] Med A (find by hovering over attending's [...] Addendums may have been dictated using the [employer] Recognition Feature. The document was proofread; however, unrecognized voice recognition targeteer errors may be present. Please note, the [...] with med team. 7AM-5PM: contact resident on [facility] Med Team (found by hovering over attending's [...] Addendums may have been dictated using the [employer] Voice Recognition Feature. The document was proofread; however, unrecognized voice recognition targeteer errors may be present. Please note, the [...] and pt's choice. 7AM-5PM: contact resident on [facility] Med Team (found by hovering over attending's [...] Recommend pursuing guardianship Per MYNOR Waterman on [employer] Chat this afternoon: I spoke with ex [...] Addendums may have been dictated using the [employer] Voice Recognition Feature. The document was proofread; however, unrecognized voice recognition targeteer errors may be present. Please note, the [...] minimal community/family support. 7AM-5PM: contact resident on [facility] Med Team (found by hovering over attending's [...] (temporalis) Fluid Accumulation: No significant fluid accumulation Laborer Filter Plant Strength: Not Performed Nutrition Assessment: Pt with noted use of tobacco and EtOH without other PMH noted/indicated presented with confusion; per chart, pt was brought in on 06/13 by EMS from [facility], pt had reported being at home watching TV when he found himself somehow on a bus and ended up at [facility], pt cannot remember why he got on [...] to contact pt sister, Ms. Keith (from [place]) states she and her sister (who lives in [place]) are Cory's only living relatives. Stated pt [...] reccomending 24 hour care following discharge. RD dental internship saw pt. Pt stated that his appetiite has been normal and he has been eating his meals. Pt stated that he had veal, mashed potatoes, and carrots for lunch. (probably pot roast) When asked what he eats at home he stated whatever I have in the fridge. Pt stated he drinks whole milk frequently [...] (kg): 65.3 kg Total Energy Requirements (kcals/day): 0492-2959 kcal/day (28-30 kcal/kg) Weight Used for Protein Requirements: Current Weight in Kg Used for Protein Requirements: 65.3 kg Estimated Total Protein (g/day): 65-78 gm protein/day (1.0-1.2 gm protein/kg) Estimated Daily Total Fluid (ml/day): per MD Nutrition Related Findings: bowel sounds active; abdomen soft and nondistended; no edema indicated; last BM 2 per pt; labs and med reviews Wound Type: None Current Nutrition Therapies: Adult diet Regular Current Oral Intake Average Meal Intake: 76-100% Average Supplements Intake: 76-100% Anthropometric Measures: Height: 180.3 cm (5' 11) (per chart, pt est 6') Current Body Weight: 66.5 kg (146 lb 9.6 oz) (bedscale) Admission Body Weight: 48.7 kg (107 lb 5.8 oz) (? bedscale) Usual Body Weight: 68 kg (150 lb) (per pt; no weight hx however can see from 2018 01/15/2018- 159#) % Weight Change (Calculated): -4 [place] Body Weight (lbs) (Calculated): 172 lbs [place] Body Weight (Kg) (Calculated): 78 kg % [place] Body Weight (Calculated): 83.7 % BMI (kg/m2) [...] needs at this time Estela Guy Contact: *[phone] Images from the original note were not included. PHYSICAL THERAPY [facility] Treatment Note Name/MRN: Cory Mueller ([id number]) Date of : 1950 Age: 72 y.o. [facility] A Discharge Recommendation: Home independently Equipment Needed: [...] Individual Co-treatment Time In 0917 Time Out 0926 Minutes 9 Timed Code Treatment Minutes: (1 [...] and geriatrics assistance. 7AM-5PM: contact resident on [facility] Med A (find by hovering over attending's name on left side of patient's chart) 5PM-7AM: contact AI3 res [facility] Geriatric Medicine Inpatient Consult Service Late Entry [...] to the community. OK to discharge to D from geriatric perspective once safe disposition is determined Time spent: 55 minutes Follow-up: will follow with you Subjective Chief Complaint: Chief Complaint Patient presents with Altered Mental Status Pt is brought into the ED by EMS. Per EMS the pt was found wandering near the bob couch on the [facility]. Pt states that he lives in [place]. Pt states that he remembers getting on [...] history of migraines. Describes his brain as mush. Acknowledges that he is having difficulty thinking. Doesn't think it will be a problem when he goes home because his apartment has an elevator. Tells me that his money has been blocked. Says that he tried to use his [...] expensive to keep it. 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 Has two sisters. One lives in [place]. He says that the other sister does not have room for him to stay with her. He would prefer to go home to his apartment but would also be agreeable to longterm care. I explained the concern for his [...] PRN, Kenneth Solo, DO, 650 mg at 06/20/232113 folic acid (Folvite) tablet 1 mg, 1 mg, Oral, Daily, Bradley Millard MD, 1 mg at 06/20/23 105 melatonin tablet 3 mg, 3 mg, Oral, Nightly PRN, Raymundo Patrick MD, 3 mg at 06/18/232125 melatonin tablet 5 mg, 5 mg, Oral, Nightly, Bradley Millard MD, 5 mg at 06/20/232114 sodium chloride (Seward) 0.65 % nasal spray 1 spray, 1 spray, Each Nostril, PRN, Matty Monacojennifer, DO, 1 spray at 06/18/23 0454 Physical [...] 1.317 06/13/2023 Lab Results Component Value Date [id number] 575 06/15/2023 Lab Results Component Value Date VITD25 27 (L) 06/15/2023 Reviewed: social history and active problem lists Images from the original note were not included. OCCUPATIONAL THERAPY [facility] Initial Evaluation Name/MRN: Cory Mueller ([id number]) Evaluation Date: 06/19/2023 Date of : 1950 Admission Date: 06/13/2023 9:56 PM Age: 72 y.o. Room/Bed: 6629/W6629 A Discharge Recommendation: 24 hour supervision or [...] Responsibilities: Independent Receives Help From: None Active Suction Operator: No Prior Level of Function ADL Assistance: [...] of Care supervision is transferred to a [facility] Services Occupational Therapist. Goals and/or treatment plan was established in collaboration with patient/family/other representatives. Med Team Progress Note Cory Mueller : 1950(72 y.o.) Date: June 19, 2023 Med Team: Rasta Attending: Dr. Hay [...] month his check was held by the project construction assistant manager. Informed patient that we spoke to [...] 126 U/L Final No results found for: CKTOTAL, CKMB, TROPONINI No results found for: PROCAL, CHOL, TRIG, HDL, TSH, VITD25, HGBA1C, VANCOTROUGH Assessment and Plan: Delirium Cognitive impairment [...] for discharge planning. 7AM-5PM: contact resident on [facility] Med A team (found by hoovering over [...] the electronic health record, and coordinating care. [facility] Geriatric Medicine Inpatient Consult [...] on initial testing ( on MMSE, CDT 6/7) -- Unclear history of cognitive decline at [...] abnormality. --Recommend outpatient [facility] at [facility] [...] be available to this patient (ECF or assisted?) and work with patient and family and choosing a safe discharge plan. Discussed with primary team and RN Follow-up: will follow with you Subjective Chief Complaint: Patient presents with Altered Mental Status Pt is brought into the ED by EMS. Per EMS the pt was found wandering near the bob couch on the [address]. Pt states that he [place]. Pt states that he remembers getting [...] confusion. Per H&P, patient was brought from [facility] by EMS. He was supposedly at home watching TV and somehow found himself on the bus and ended up at [facility]. Diagnosed with an amnestic event. Per chart [...] a primary care doctor in a long time, identifies that it is difficult to get [...] Solo DO, 650 mg at 06/17/23 0447 folic acid (Folvite) tablet 1 mg, 1 mg, Oral, Daily, Bradley Millard MD, 1 mg at 06/18/23 0825 melatonin tablet 3 mg, 3 mg, Oral, Nightly PRN, Raymundo Patrick MD, 3 mg at 06/17/232106 melatonin tablet 5 mg, 5 mg, Oral, Nightly, Bradley Millard MD, 5 mg at 06/17/232106 sodium chloride (Seward) 0.65 % nasal spray 1 spray, 1 [...] 1.317 06/13/2023 Lab Results Component Value Date [id number] 575 06/15/2023 Lab Results Component Value Date VITD25 27 (L) 06/15/2023 Reviewed: allergies, previous encounters, social history, imaging, active problem lists, medications, and labs Family Communication Number Called: [phone] Name of Designated Family Manager Regional: Gabriela Mueller Relationship: sister Phone Call Outcome: I spoke with the individual listed above. Family Manager Regional Updated on the Following: Spoke to patients [...] she will be visiting him in the main campus medical center. She provided Ex Violeta Zheng phone number: [...] 126 U/L Final No results found for: CKTOTAL, CKMB, TROPONINI No results found for: PROCAL, CHOL, TRIG, HDL, TSH, VITD25, HGBA1C, VANCOTROUGH Assessment and Plan: Delirium Cognitive impairment [...] Geriatrics following, will need follow up in [place] [facility]. Need to work on disposition now, as he is medically ok for discharge. His sister was contacted yesterday. Patient was given her correct number and wants to discuss if he can move in with her. If this is not possible, will work with SW regarding other options-?ECF 7AM-5PM: contact resident on [facility] Med A team (found by hoovering over [...] and coordinating care. Family Communication Number Called: [phone] Name of Designated Family Manager Regional: Gabriela Keith Relationship: sister Phone Call Outcome: I spoke with the individual listed above. Family Manager Regional Updated on the Following: Ms. Keith (from [place]) states she and her sister (who lives in [place]) are Cory's only living relatives. They have not spoken with him in many years except a brief phone call a few months ago asking for money. He had apparently cut himself off from the family for unknown reasons. She denies a history of confusion in [facility]. States he used to drink alcohol daily but is unsure if he still drinks. She gave an address for him ([address] [place] [address] [address] [facility] in [place]). She does not believe he has any [...] Accumulation: No significant fluid accumulation (per chart) Laborer Filter Plant Strength: Not Performed Nutrition Assessment: Pt with noted use of tobacco and EtOH without other PMH noted/indicated presented with confusion; per chart, pt was brought in on 06/13 by EMS from [facility], pt had reported being at home watching TV when he found himself somehow on a bus and ended up at [facility], pt cannot remember why he got on [...] in room and noted eggs, sausage and lao toast were sent, reports eating well here, [...] (kg): 65.3 kg Total Energy Requirements (kcals/day): 3807-9738 kcal/day (28-30 kcal/kg) Weight Used for Protein [...] Ordered Anthropometric Measures: Height: 180.3 cm (5' 11) (per chart, pt est 6') Current Body Weight: 65.3 kg (144 lb) (bedscale observed by RD 06/17) Admission Body Weight: 48.7 kg (107 lb 5.8 oz) (? bedscale) Usual Body Weight: 68 kg (150 lb) (per pt; no weight hx however can see from 2018 01/15/2018- 159#) % Weight Change (Calculated): -4 [place] Body Weight (lbs) (Calculated): 172 lbs [place] Body Weight (Kg) (Calculated): 78 kg % [place] Body Weight (Calculated): 83.7 % BMI (kg/m2) [...] Lyly Acosta RD Contact: Secure chat or *[phone] [facility] Geriatric Medicine Inpatient Consult [...] abnormality. --Recommend outpatient follow up at [facility] [...] the pt was found wandering near the [employer] on the [facility]. Pt states that he lives in [place]. Pt states that he remembers getting on the bus this morning. Pt states that he is not sure where he was going when he got on the bus. Pt states that he does not remember much from today. Geriatrics consulted for Episode of confusion and wondering to [employer], unclear etiology. MMSE 20. Concerns for safety at home HPI- The patient is new to me but seen by the Geriatric Inpatient Consult team. 72 y.o. year-old male admitted to acute care from home for confusion. Per H&P, patient was brought from [facility] by EMS. He was supposedly at home watching TV and somehow found himself on the bus and ended up at [facility]. Diagnosed with an amnestic event. Per chart [...] mg, 650 mg, Oral, q6h PRN, Kenneth Sloo DO, 650 mg at 06/17/23 0447 acyclovir [...] Nightly, Bradley Millard MD, 5 mg at 06/16/231954 sodium chloride (Seward) 0.65 % nasal spray 1 spray, 1 spray, Each Nostril, PRN, Matty Bryson DO, 1 spray at 06/17/23 1048 thiamine (Vitamin B1) 250 mg in sodium chloride 0.9 % 100 mL IVPB, 250 mg, IntraVENous, q24h, Bradley Millard MD, Stopped at 06/16/231818 Physical Exam Vitals reviewed. Constitutional: No acute [...] 1.317 06/13/2023 Lab Results Component Value Date [id number] 575 06/15/2023 Lab Results Component Value Date VITD25 27 (L) 06/15/2023 Reviewed: allergies, previous encounters, social history, imaging, active problem lists, medications, and labs Images from the original note were not included. PHYSICAL THERAPY [facility] Initial Evaluation Name/MRN: Cory Mueller ([id number]) Evaluation Date: 06/17/2023 Date of : 1950 Admission Date: 06/13/2023 9:56 PM Age: 72 y.o. [facility] A Discharge Recommendation: Home independently Equipment Needed: [...] Responsibilities: Independent Receives Help From: None Active Suction Operator: No Prior Level of Function ADL Assistance: [...] Raw Score (No Stairs) : 19 JH-HLM -M Score: Walked 25 ft or more (i.e. [...] Minutes 9 PPE worn in accordance with [facility] guidelines.] Leticia Leon PT Patient's Physical Therapy Plan of Care supervision is transferred to a [facility] Physical Therapist. Goals and/or treatment [...] 126 U/L Final No results found for: CKTOTAL, CKMB, TROPONINI No results found for: PROCAL, CHOL, TRIG, HDL, TSH, VITD25, HGBA1C, VANCOTROUGH Assessment and Plan: Delirium Cognitive impairment [...] to self. - Will reach out to [employer] today to locate ABHILASH. Sisters number provided by [...] tobacco. 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 EEG done was negative Plan today is for LP, but doubt any infectious cause of confusion Team will still attempt to find his sister. May need help from [employer] in Protective services. Will need SW assistance regarding dispo. May need competency eval by Geriatrics and ?guardianship 7AM-5PM: contact resident on [facility] Med A team (found by hoovering over [...] original note were not included. PHYSICAL THERAPY [facility] Name/MRN: Cory Mueller ([id number]) Date: 06/16/2023 PT eval attempted, but pt having continuous EEG in room. Will re-attempt at a later date. Shameka Minor PT Green slip in place by medical team. Patient is on medical hold and cannot leave AMA. Med Team Progress Note Cory Mueller : 1950(72 y.o.) Date: June 16, 2023 Med Team: A Attending: Dr. Alvarez [...] 126 U/L Final No results found for: CKTOTAL, CKMB, TROPONINI No results found for: PROCAL, CHOL, TRIG, HDL, TSH, VITD25, HGBA1C, VANCOTROUGH Assessment and Plan: Delirium Cognitive impairment [...] to self. - Will reach out to [employer] to locate ROSEMARYK. Sisters number provided by patient was not active. Agree. Today he is A+O x 1. Seems more confused than yesterday. Does complain of headache for the last 4-5 days and that he doesn't normally get headaches--something is going on. MRI unremarkable for acute [...] AMA at this time. Unable to contact sisters (ROSEMARYK). Phone number he gave doesn't work. Team to ask [employer] tomorrow for assistance tracking down family. Headache [...] states he has one sister living in [place] and another in [place]. Patient is okay with medical team contacting sister in [place] for further information. He is A&Ox2. Patient [...] 126 U/L Final No results found for: CKTOTAL, CKMB, TROPONINI No results found for: PROCAL, CHOL, TRIG, HDL, TSH, VITD25, HGBA1C, VANCOTROUGH Assessment and Plan: Acute episode of [...] from the original note were not included. [facility] Geriatric Medicine Inpatient Consult Service Admission [...] not be aware documented in this encounter [facility] 07-02-2023 Note Attestation with edits by Nickie Fagan DO at 07/09/2023 3:51 PM Patient seen & examined on day of discharge. Please refer to note dated on the day of discharge (07/02/2023) for associated attestation, exam, and plan. My personal highlights or additions below noted in Green. Internal Medicine: Med Team Discharge Summary Cory Mueller : 1950 ADMIT DATE: 06/13/2023 DISCHARGE DATE: 07/02/23 PCP: No primary care provider on file. Visit Status: Admission Code Status: FULL CODE Primary Discharge Diagnosis: Dementia Secondary Discharge Diagnoses: Cognitive impairment Hx EtOH Use Lack of capacity Headache - etiology unknown Reason for Admission & Hospital Course: Cory Mueller is a 72 y.o. male that presented to [facility] on 06/13/2023 and was admitted for Confusion and decreased memory Patient is a 72 year old male with PMH of tobacco use, and alcohol abuse that presented to [facility] after being found wandering in a [employer] [place]. Patient was brought in by EMS and was found to be confused and A&Ox2. Patient lives by himself in an apartment and does not routinely follow with healthcare. Initial workup in the ED including CTH and CXR were unremarkable. Patient was admitted for further evaluation of his confusion. While admitted further infectious and metabolic work up was pursued to ascertain the etiology of his confusion. UDS was positive for THC but was otherwise unremarkable. Infectious work up including RPR, VDRL, and HIV were all negative. Neurological work up was unremarkable as well. After his thorough workup it was suggested that his confusion was attributed to dementia associated with age and previous history of alcohol abuse. Patient was deemed to not have capacity after being assessed by our geriatrics service and soon after we arranged for his ex- to be his HCPOA. There was difficulty in arranging facility placement with the POA being difficult to reach. Eventually patient was placed at a [facility] and discharged on 07/02/23. Disposition: SNF Activity: No restriction. Diet: Adult diet Regular Discharge Medications: Medication List START taking these medications folic acid 1 MG tablet Commonly known as: Folvite Take 1 tablet (1 mg) by mouth daily. ibuprofen 600 MG tablet Take 1 tablet (600 mg) by mouth every 6 hours as needed for headaches for up to 10 days. Lidocaine 4 % patch Place 1 patch on the skin Daily as needed (neck / head ache). melatonin 5 MG tablet Take 1 tablet (5 mg) by mouth Nightly. sodium chloride 0.65 % nasal spray Commonly known as: Seward Administer 1 spray into each nostril every 4 hours as needed for congestion. traZODone 50 MG tablet Commonly known as: Desyrel Take 1 tablet (50 mg) by mouth Nightly. Where to Get Your Medications Information about where to get these medications is not yet available Ask your nurse or doctor about these medications folic acid 1 MG tablet ibuprofen 600 MG tablet Lidocaine 4 % patch melatonin 5 MG tablet sodium chloride 0.65 % nasal spray traZODone 50 MG tablet Notable Medication Changes & Reasoning: As above Consultants Geriatric Procedures Performed None Significant Laboratory/Radiographic Data: As above Pending Results at Time of Discharge None Follow Up Appointment(s): Per [facility] Items to Address at Followup Visit: - Assess patient's headache and optimize as needed - Optimize sleep medication and assess response to trazodone [facility] 07-02-2023 Note Formatting of this n ote might be different from the original. 7000 was entered into [employer] for the [facility]- [facility]. Discharge med list transmitted to [facility] via [employer] per TCC request. [facility] 07-02-2023 Note Formatting of this n ote might be different from the original. 7000 was entered into [employer] for the [facility]- [facility]. Discharge med list transmitted to [facility] via [employer] per TCC request. [facility] 07-01-2023 Note Problem: Safety - Ad ult Goal: Free from fall injury Outcome: Progressing Problem: Neurosensory - Adult Goal: Achieves maximal functionality and self care Outcome: Progressing [facility] 07-01-2023 Note Formatting of this n ote might be different from the original. Chart reviewed. Spoke to patient at bedside re: info that both [facility] and [facility] are able to accept. Patient stated he would prefer [facility]. Facility notified to start auth. [facility] 07-01-2023 Note Formatting of this n ote might be different from the original. Chart reviewed. Spoke to patient at bedside re: info that both [facility] and [facility] are able to accept. Patient stated he would prefer [facility]. Facility notified to start auth. [facility] 07-01-2023 Plan of care note Problem: Safety - Adult Goal: Free from fall injury Outcome: Progressing Problem: Neurosensory - Adult Goal: Achieves maximal functionality and self care Outcome: Progressing [facility] 06-30-2023 Plan of care note Problem: Safety - Adult Goal: Free from fall injury Outcome: Adequate for Discharge Problem: Discharge Planning Goal: Discharge to home or other facility with appropriate resources Outcome: Adequate for Discharge [facility] 06-29-2023 Hospital Discharg alexia Dacosta RN - 06/29/2023 12:15 PM EST Continuity of Care Form Patient Name: Cory Mueller : 1950 Admit date: 06/13/2023 Discharge date: 07/02/23 Code Status Order: Full Code Advance Directives: N Admitting Physician: Sierra Hay MD PCP: No primary care provider on file. Discharging Nurse: KORIN Londono Discharging Hospital Unit/Room#: O4-913/V9-111 A Discharging Unit Emergency Contact: Extended Emergency Contact Information Primary Emergency Contact: Violeta Mueller Relation: Other Secondary Emergency Contact: Gabriela Mueller Relation: Sister Gastroenterology Technician needed? No Past Surgical History: History reviewed. [...] Dressing Minimal assistance Toileting Independent Feeding Independent Panel Installer Total assistance Med Delivery yes Wound Care [...] Score: @READMISSIONRISKDETAILS@ Discharging to Facility/ Agency Name: [facility] Address: [address] [place] [address] Dialysis Facility (if applicable) Name: Address: Dialysis Schedule: Phone: Fax: Photographic Process Worker/Blocker And Polisher signature: ICIAN SECTION Prognosis: excellent Condition at [...] the diagnosis listed and that he requires detention facility for less than 30 days. Update Admission H&P: No change in H&P PHYSICIAN SIGNATURE: documented in this encounter [facility] 06-28-2023 Note Referral placed to [facility] via [employer] per TCC request. Await review and response regarding ability to accept. TCC notified. [facility] 06-28-2023 Note Formatting of this n ote might be different from the original. Referral placed to [facility] via [facility] per TCC request. Await review and response regarding ability to accept. TCC notified. [facility] 06-28-2023 Note Formatting of this n ote might be different from the original. Referral placed to [facility] via [facility] per TCC request. Await review and response regarding ability to accept. TCC notified. [facility] 06-28-2023 Note Formatting of this n ote might be different from the original. Received responses in [facility][note 2] are not able to accept. Spoke to patient at bedside and reviewed list. He would like referrals to [facility], [facility] and [facility]. AERODYNAMICS PROFESSOR tasked to place referrals. [facility] 06-28-2023 Note Formatting of this n ote might be different from the original. Received responses in [facility] [place][note 2] are not able to accept. Spoke to patient at bedside and reviewed list. He would like referrals to [facility], [facility] and [facility]. AERODYNAMICS PROFESSOR tasked to place referrals. [facility] 06-28-2023 Note Problem: Safety - Ad ult [...] Adult Goal: Maintains hematologic stability Outcome: Progressing [facility] 06-28-2023 Plan of care note Problem: [...] Adult Goal: Maintains hematologic stability Outcome: Progressing [facility] 06-27-2023 Note Referral placed to [facility] via [facility] per TCC request. Await review and response regarding ability to accept. TCC notified. [facility] 06-27-2023 Note Formatting of this n ote might be different from the original. Referral placed to [facility] via [facility] per TCC request. Await review and response regarding ability to accept. TCC notified. [facility] 06-27-2023 Note Formatting of this n ote might be different from the original. Referral placed to [facility] via [facility] per TCC request. Await review and response regarding ability to accept. TCC notified. [facility] 06-27-2023 Note Formatting of this n ote might be different from the original. Provided patient at bedside a choice list. Discussed with patient need for facility with special care for patients with forgetfulness. He agreed and stated that he would prefer to go to a facility in the [facility]. We reviewed the list and he would like referrals to [facility]. [facility] tasked to place referrals. [facility] 06-27-2023 Note Formatting of this n ote might be different from the original. Provided patient at bedside a choice list. Discussed with patient need for facility with special care for patients with forgetfulness. He agreed and stated that he would prefer to go to a facility in the [facility]. We reviewed the list and he would like referrals to [facility]. AERODYNAMICS PROFESSOR tasked to place referrals. [facility] 06-27-2023 Note Formatting of this n ote might be different from the original. VM left with ex-, PORasta Mcdaniel to discuss facility choices for placement. [facility] 06-27-2023 Note Formatting of this n ote might be different from the original. VM left with ex-, PORasta Mcdaniel to discuss facility choices for placement. [facility] 06-26-2023 Note Problem: Safety - Ad ult Goal: Free from fall injury Outcome: Progressing Problem: Discharge Planning Goal: Discharge to home or other facility with appropriate resources Outcome: Progressing [facility] 06-26-2023 Note Formatting of this n ote might be different from the original. Left VM this AM to ex- and HCPOA to discuss discuss discharge planning. [facility] 06-26-2023 Note Formatting of this n ote might be different from the original. Left VM this AM to ex- and HCPOA to discuss discuss discharge planning. [facility] 06-26-2023 Plan of care note Problem: Safety - Adult Goal: Free from fall injury Outcome: Progressing Problem: Discharge Planning Goal: Discharge to home or other facility with appropriate resources Outcome: Progressing [facility] 06-25-2023 Note Formatting of this n ote [...] locations if she would be willing. Left with Violeta to discuss. SW notified of this conversation. [facility] 06-25-2023 Note Formatting of this n ote [...] to discuss. SW notified of this conversation. [facility] 06-24-2023 Note Formatting of this n ote might be different from the original. Met with patient. He stated he still wanted to name his ex -Violeta Mueller as his HCPOA. Patient completed paperwork with my assistance and explanation of what wording means on the form. Will make copies for patient's chart and provide him the original and copy for Violeta . Will follow. [facility] 06-24-2023 Note Formatting of this n ote might be different from the original. Met with patient. He stated he still wanted to name his ex -Violeta Mueller as his HCPOA. Patient completed paperwork with my assistance and explanation of what wording means on the form. Will make copies for patient's chart and provide him the original and copy for Violeta . Will follow. [facility] 06-24-2023 Note Formatting of this n ote might be different from the original. Chart reviewed. Patient is medically stable for discharge however, geriatrics deemed patient lacks decision making capacity for discharge. Per note, patient ex- is willing to become [...] SW and TCC to continue to follow. [facility] 06-24-2023 Note Formatting of this n ote [...] SW and TCC to continue to follow. [facility] 06-23-2023 Note Med Team Progress No te [...] Maggy Rodrigez DO (more content not included)... [facility] 06-22-2023 Plan of care note The [...] other facility with appropriate resources Outcome: Progressing [facility] 06-22-2023 Note Med Team Progress No andrey Mueller : 1950(72 y.o.) Date: June 22, 2023 Med Team: A Attending: Dr. Candelario [...] plain with TC (more content not included)... [facility] 06-21-2023 Note Formatting of this n [...] placement. Violeta reports patient does have a upb-Gscpw-ffd lives with patient's sister- Gabriela although they do not get along, have not seen each other for a year and patient denies Sandro is his son. Will ask patient if wants to name Violeta as his HCPOA and if so can assist with paperwork. Will follow. [facility] 06-21-2023 Note Formatting of this n ote [...] placement. Violeta reports patient does have a vda-Bbwec-nth lives with patient's sister- Gabriela although they do not get along, have not seen each other for a year and patient denies Sandro is his son. Will ask patient if wants to name Violeta as his HCPOA and if so can assist with paperwork. Will follow. [facility] 06-21-2023 Note Med Team Progress No andrey Mueller : 1950(72 y.o.) Date: June 21, [...] Recommend pursuing guardianship Per MYNOR Waterman on [employer] Chat this afternoon: I spoke with ex [...] need to e (more content not included)... [facility] 06-20-2023 Note Formatting of this n ote might be different from the original. Stockroom Worker following case for Discharge Needs. [facility] 06-20-2023 Note Formatting of this n ote might be different from the original. Stockroom Worker following case for Discharge Needs. [facility] 06-20-2023 Note Formatting of this n ote might be different from the original. Spoke to Dr. Fagan in office today. She stated that [facility] would likely be able to follow patient in the community until a PCP can be established through home visits. Adam Mcguire, tasked in careport with this information so that patient can have HHC at discharge. I placed calls to multiple home visit companies: -[facility] at [phone] -unable to accept, does not take his insurance -[facility]: [phone] -left -[facility] at [phone] -patient lives out of area/ provided me with number [phone] -spoke to Violeta at above number, who stated patient needs a provider to qualify and [place] she transferred me to [facility] to see if they would make an exception to see. Spoke to Gilda who stated an exception to provider rule is unlikely but provided me with number [phone] and stated should talk to Sierra Avendano, the pastry assistant. -[facility] at [phone] -spoke to Violeta. She stated they are at capacity and on an 8 week wait list. I provided her with patient information and Gabriela Julien's number (sister) for contact if and when they may be able to accept. Patient did not have a phone number in his chart. Number to call and inquire about set up, place on list is [phone]. [facility] Note Formatting of this n [...] placed calls to multiple home visit companies: -[facility] at [phone] -unable to accept, does not take his insurance -[facility]: [phone] -left -[facility] at [phone] -patient lives out of area/ provided me with number [phone] -spoke to Violeta at above number, who stated patient needs a provider to qualify and [place] she transferred me to [facility] to see if they would make an exception to see. Spoke to Gilda who stated an exception to provider rule is unlikely but provided me with number [phone] and stated should talk to Sierra Avendano, the pastry assistant. -[facility] at [phone] -spoke to Violeta. She stated they are at capacity and on an 8 week wait list. I provided her with patient information and Gabriela Julien's number (sister) for contact if and when they may be able to accept. Patient did not have a phone number in his chart. Number to call and inquire about set up, place on list is [phone]. [facility] 06-20-2023 Note Formatting of this n ote [...] TCC and SW to continue to follow. [facility] 06-20-2023 Note Formatting of this n ote [...] TCC and SW to continue to follow. [facility] 06-19-2023 Nurse Note Patient c/o headache 7. Tylenol was given earlier in the day for c/o headache. No relief. Informed MD. LAKE doesn't want to order any new medications at this time due to his mentation. Will continue to monitor. [facility] [email or web address] 06-19-2023 Nurse Note Patient c/o headache 7/10. Tylenol was given earlier in the day for c/o headache. No relief. Informed MD. LAKE doesn't want to order any new medications [...] recall doing so. documented in this encounter [facility] 06-19-2023 Note OCCUPATIONAL THERAPY [facility] Initial Evaluation Name/MRN: Cory Mueller ([id number]) Evaluation Date: 06/19/2023 Date of : 1950 Admission Date: 06/13/2023 9:56 PM Age: 72 y.o. [facility] A Discharge Recommendation: 24 hour supervision or [...] Responsibilities: Independent Receives Help From: None Active Suction Operator: No Prior Level of Function ADL Assistance: [...] Daily Activity Raw Score: 24 ADL Inpatient [facility] G-Code Modifier: CH Plan No skilled acute [...] of Care supervision is transferred to a [facility] Occupational Therapist. Goals and/or treatment plan was established in collaboration with patient/family/other representatives. [facility] 06-19-2023 Note Formatting of this n ote might be different from the original. Updated patient that his sister is willing to be his HCPOA. He does not want to name her,likely since he can not stay with her he does not want her into his buisiness. Will follow. [facility] 06-19-2023 Note Formatting of this n ote might be different from the original. Updated patient that his sister is willing to be his HCPOA. He does not want to name her,likely since he can not stay with her he does not want her into his buisiness. Will follow. [facility] 06-19-2023 Note Formatting of this n ote [...] his PCP. He agrees. Placed call to [facility] and left to set up home visits. TCC and SW to continue to follow [facility] 06-19-2023 Note Formatting of this n ote [...] his PCP. He agrees. Placed call to [facility] and left to set up home visits. TCC and SW to continue to follow [facility] 06-19-2023 Note Formatting of this n ote might be different from the original. Also spoke with sister-Gabriela regarding HCPOA-she is willing. Did explain what all that means and she would be the contact in the future regarding medical issues. Will work with patient on paperwork. [facility] 06-19-2023 Note Formatting of this n ote might be different from the original. Also spoke with Clary regarding HCPOA-she is willing. Did explain what all that means and she would be the contact in the future regarding medical issues. Will work with patient on paperwork. [facility] 06-19-2023 Note Formatting of this n ote might be different from the original. Contacted sister- Gabriela Mueller-[phone]. She states she and family have not [...] ties with family years ago. Will follow. [facility] 06-19-2023 Note Formatting of this n ote might be different from the original. Contacted - Gabriela Mueller-[phone]. She states she and family have not [...] ties with family years ago. Will follow. [facility] 06-19-2023 Plan of care note The patient [...] Interventions Goal: Assess Nutritional Intake Outcome: Progressing [facility] 06-18-2023 Note Formatting of this n ote might be different from the original. Social Work consulted for housing-patient kicked out of his apartment. Reviewed chart, met with patient to discuss. Patient states he was kicked out of his apartment-[facility] in [place] for smoking in his apartment. CASE MAKING MACHINE OPERATOR contacted [employer] -left message. Call received back from Yudith landa to the building analyst/supervisor-Saloni Nance. Yudith stated patient is not kicked [...] discuss with this with her. Will follow. [facility] 06-18-2023 Note Formatting of this n ote might be different from the original. Social Work consulted for housing-patient kicked out of his apartment. Reviewed chart, met with patient to discuss. Patient states he was kicked out of his apartment-[facility] housing in [place] for smoking in his apartment. CASE MAKING MACHINE OPERATOR contacted [facility] -left message. Call received back from Yudith landa to the building analyst/supervisor-Saloni Nance. Yudith stated patient is not kicked [...] discuss with this with her. Will follow. [facility] 06-18-2023 Consult note Associated Order (s): IP CONSULT TO SOCIAL WORK Mj Social Work care coordination note. [facility] 06-18-2023 Consult note Associated Order (s): IP CONSULT TO SOCIAL WORK Mj Social Work care coordination note. Associated Order(s): IP CONSULT TO GERIATRICS [facility] Geriatric Medicine Inpatient Consult Service Admission Date: 06/13/2023 Admission Status: INPATIENT Chief Complaint: Chief Complaint Patient presents with Altered Mental Status Pt is brought into the ED by EMS. Per EMS the pt was found wandering near the bob [place] on the [address] [facility]. Pt states that he lives in [place]. Pt states that he remembers getting on the bus this morning. Pt states that he is not sure where he was going when he got on the bus. Pt states that he does not remember much from today. Reason for Appointment Geriatrics consulted for Episode of confusion and wondering to bob couch, unclear etiology. MMSE 20. Concerns for safety at home. Assessment/Plan Principal Problem: Delirium Active Problems: Acute [...] team. - patient to follow up with [facility] on an OP basis, once at baseline - he prefers to be seen at [facility]. Agree - would recommend to reach out to maintainer sewer and waterworks [employer] to corroborate patient's history. Agree. At [...] he can have money to get anything else. Patient is a poor historian. Patient states [...] On chart review: Patient was brought from [facility] by EMS. Patient supposedly was at home watching TV and somehow found himself on the bus and ended up at [facility]. Concern for an amnestic episode. Pleasant and cooperative but vague when pressed for specific details. Thinks that he went to the store looking for help from someone because of his confusion. Fairly nonplussed about admission and does not seem to be anxious about leaving the hospital. Conversation with caregiver: Sister - Gabriela Mueller - [phone] - patient provided this phone number, which has been disconnected. Patient has not spoken to his sister in approximately 5-6 months. Patient denies having any friends in the area - states that he stays at home and watches TV all day. Advance Care Planning Healthcare Power ofAttorney: No Financial Power of Concession Supervisor: No Living Will:No Code Status: Full code [...] included, Numbers are drawn inside the clock point hope ira, Numbers are equally spaced from each other, hour hand points to correct number, minute hand points to correct number, and there are only 2 clock hands Total Score 6/7 Time Instructions: Twothirty-five Scores < 5 out of 7 correlate with significantly more driving errors J Gen Mine Administrator Supervisor Med 2005; 20:240-244 Labs and Imaging: Recent [...] lab results, imaging Follow-up: Follow up at [facility] in 4-6 weeks - post discharge [...] for further recommendations. documented in this encounter [facility] 06-18-2023 Note Family Communication Number Called: [phone] Name of Designated Family Manager Regional: Gabriela Mueller Relationship: sister Phone Call Outcome: I spoke with the individual listed above. Family Manager Regional Updated on the Following: Spoke to patients [...] will be visiting him in the hospital [facility]. She provided Ex Violeta Zheng phone number: [phone]. Gabriela said that she cannot think of a single friend or family member that he speaks to anymore. She also stated that he cannot return to his apartment because they kicked him out for smoking as he lives in a non smoking apartment complex. She is unsure when he was kicked out. [facility] 06-18-2023 Note Formatting of this n [...] he has capacity) for discharge, ie homeless assisted, medicaid for ECF. TCC to continue to follow. [facility] 06-18-2023 Note Formatting of this n ote might be different from the original. entered room noting that patient is medically stable for discharge. Patient possibly homeless and ? Lacks capacity per MD. Notified SW to verify if patient can return to his apartment. MD to discuss with geriatrics an assessment for capacity to determine if patient will need medical decision maker /guardianship for placement or alternate plan ( if he has capacity) for discharge, ie homeless assisted, medicaid for ECF. TCC to continue to follow. [facility] 06-17-2023 Note Interventional Radio logy Brief Postprocedure Note Procedure: IR lumbar puncture Preprocedure Diagnosis: AMS with unknown cause Postprocedure Diagnosis: no change Staff: Staff Role Emily Irvin RN Radiology Nurse Abraham Deng MD Radiologist RT Asia (R) Sack Sewer RT Nahid (R) Sack Sewer Description of procedure: fluoroscopically guided lumbar puncture [...] condition. Abraham Deng MD Interventional Radiology Pager: [facility] 06-17-2023 Note Formatting of this n ote is different from the original. Interventional Radiology Brief Postprocedure Note Procedure: IR lumbar puncture Preprocedure Diagnosis: AMS with unknown cause Postprocedure Diagnosis: no change Staff: Staff Role Emily Irvin RN Radiology Nurse Abraham Deng MD Radiologist Henry Crow, (R) Sack Sewer RT Nahid (R) Sack Sewer Description of procedure: fluoroscopically guided lumbar puncture [...] condition. Abraham Deng MD Interventional Radiology Pager: [facility] Phone: 06-17-2023 Note Formatting of this n ote is different from the original. Interventional Radiology Brief Postprocedure Note Procedure: IR lumbar puncture Preprocedure Diagnosis: AMS with unknown cause Postprocedure Diagnosis: no change Staff: Staff Role Emily Irvin, oenologist Nurse Abraham Deng MD Radiologist Henry Crow, RT (R) Sack Sewer Ronni Bentley RT (R) Sack Sewer Description of procedure: fluoroscopically guided lumbar puncture [...] condition. Abraham Deng MD Interventional Radiology Pager: [facility] Phone: 06-17-2023 Note Family Communication Number Called: [phone] Name of Designated Family Manager Regional: Gabriela Keith Relationship: sister Phone Call Outcome: I spoke with the individual listed above. Family Manager Regional Updated on the Following: Ms. Keith (from [place]) states she and her sister (who lives in [place]) are Cory's only living relatives. They have [...] She gave an address for him ([address] in [place]). She does not believe he has any [...] deeply and was emotional during the conversation. [facility] 06-17-2023 Nurse Note Patient arrived from , Dr. Hany Deng was in to speak with the patient regarding LP, consent was obtained. Patient was placed prone on exam table prepped and draped in sterile fashion. 12cc of clear CSF was collected for labs. Patient tolerated procedure well. Transferring to . . [facility] 06-17-2023 Note Formatting of this n ote might be different from the original. Chart reviewed. Patient with increased confusion and COLLIER. +Rx for possible meningitis, LP pending. Patient is green slipped. Geriatrics consulted for delirium. PT recommending home independently. Patient may need decision maker and placement if unable to care for self. TCC to continue to follow. [facility] 06-17-2023 Note Formatting of this n ote might be different from the original. Chart reviewed. Patient with increased confusion and COLLIER. +Rx for possible meningitis, LP pending. Patient is green slipped. Geriatrics consulted for delirium. PT recommending home independently. Patient may need decision maker and placement if unable to care for self. TCC to continue to follow. [facility] 06-17-2023 Note PHYSICAL THERAPY [facility] Initial Evaluation Name/MRN: Cory Mueller ([id number]) Evaluation Date: 06/17/2023 Date of : 1950 Admission Date: 06/13/2023 9:56 PM Age: 72 y.o. Room[facility]Bed: [facility] A Discharge Recommendation: Home independently Equipment Needed: [...] Responsibilities: Independent Receives Help From: None Active Suction Operator: No Prior Level of Function ADL Assistance: [...] Minutes 9 PPE worn in accordance with [facility] guidelines.] Leticia Leon, PT Patient's Physical Therapy Plan of Care supervision is transferred to a [facility] Physical Therapist. Goals and/or treatment plan was established in collabo (more content not included)... [facility] 06-16-2023 Note [facility] [address] [place] [address] ROUTINE EEG REPORT Patient Name: Cory Mueller : 1950 Date of Study: 06/16/2023 Duration Recorded: 25 minutes EEG#: [id number] FLOODPLAIN MANAGER: Rosette Sánchez PROVIDER REQUESTING STUDY: Sierra Hay [...] 5 mg at 06/15/23 2214 sodium chloride (Seward) 0.65 % nasal spray 1 spray 1 spray Each Nostril PRN Matty Bryson DO thiamine (Vitamin B1) 250 mg in sodium chloride 0.9 % 100 mL IVPB 250 mg IntraVENous q24h Bradley Millard MD Stopped at 06/15/23 2244 TECHNICAL ASPECTS: This routine scalp EEG study with video was carried out at [facility]. Scalp electrodes were positioned in person by an production technologist, following patient education, according to the 10-20 International system of electrode placement and maintained for integrity and quality of the recording. EEG data with video was recorded continuously and digitally stored. The production technologist reviewed all automated detections and manual events [...] observed. Francis Ferrer MD, PHD Epilepsy Attending [facility] 06-16-2023 Procedure note Associated Ord er(s): EEG Images from the original note were not included. [facility] [address] [place] [id number] ROUTINE EEG REPORT Patient Name: Cory Mueller : 1950 Date of Study: 06/16/2023 Duration Recorded: 25 minutes EEG#: [id number] FLOODPLAIN MANAGER: Rosette Sánchez PROVIDER REQUESTING STUDY: Sierra Hay [...] 5 mg at 06/15/23 2214 sodium chloride (Seward) 0.65 % nasal spray 1 spray 1 spray Each Nostril PRN Matty Bryson DO thiamine (Vitamin B1) 250 mg in sodium chloride 0.9 % 100 mL IVPB 250 mg IntraVENous q24h Bradley Millard MD Stopped at 06/15/23 2244 TECHNICAL ASPECTS: This routine scalp EEG study with video was carried out at [facility]. Scalp electrodes were positioned in person by an production technologist, following patient education, according to the 10-20 International system of electrode placement and maintained for integrity and quality of the recording. EEG data with video was recorded continuously and digitally stored. The production technologist reviewed all automated detections and manual events [...] observed. Francis Ferrer MD, PHD Epilepsy Attending [facility] Work Phone: 06-16-2023 Procedure note Associated Ord er(s): EEG Images from the original note were not included. [facility] [address] [place] [address] ROUTINE EEG REPORT Patient Name: Cory Mueller : 1950 Date of Study: 06/16/2023 Duration Recorded: 25 minutes EEG#: [id number] FLOODPLAIN MANAGER: Rosette Sánchez PROVIDER REQUESTING STUDY: Sierra Hay [...] 5 mg at 06/15/23 2214 sodium chloride (Seward) 0.65 % nasal spray 1 spray 1 spray Each Nostril PRN Matty Bryson DO thiamine (Vitamin B1) 250 mg in sodium chloride 0.9 % 100 mL IVPB 250 mg IntraVENous q24h Bradley Millard MD Stopped at 06/15/23 5907 TECHNICAL ASPECTS: This routine scalp EEG study with video was carried out at [facility]. Scalp electrodes were positioned in person by an production technologist, following patient education, according to the 10-20 International system of electrode placement and maintained for integrity and quality of the recording. EEG data with video was recorded continuously and digitally stored. The production technologist reviewed all automated detections and manual events [...] PHD Epilepsy Attending documented in this encounter [facility] 06-16-2023 Note Med Team Progress No andrey Cory Mueller : 1950(72 y.o.) Date: June 16, 2023 Med Team: aRsta Attending: Dr. Alvarez Chief Complaint: Confusion and [...] 126 U/L Final No results found for: CKTOTAL, CKMB, TROPONINI No results found for: PROCAL, CHOL, TRIG, HDL, TSH, VITD25, HGBA1C, VANCOTROUGH Assessment and Plan: Delirium Cognitive impairment - A&Ox1 and more delirious this am - MMSE 20 on initial evaluation - Vitamin B12, TSH, and free T4 WNL - Vitamin D levels low at 27 - Urine drugs screen positive for THC. Ethyl glucuronide negative. - UA and urine culture show no abnormalities - RPR pending (more content not included)... [facility] 06-15-2023 Consult note Associated Order (s): IP CONSULT TO GERIATRICS [facility] Geriatric Medicine Inpatient Consult Service Admission Date: 06/13/2023 Admission Status: INPATIENT Chief Complaint: Chief Complaint Patient presents with Altered Mental Status Pt is brought into the ED by EMS. Per EMS the pt was found wandering [place] [facility]. Pt states that he lives in [place]. Pt states that he remembers getting on the bus this morning. Pt states that he is not sure where he was going when he got on the bus. Pt states that he does not remember much from today. Reason for Appointment Geriatrics consulted for Episode of confusion and wondering to bob couch, unclear etiology. MMSE 20. Concerns for safety at home. Assessment/Plan Principal Problem: Delirium Active Problems: Acute [...] team. - patient to follow up with [facility] on an OP basis, once at baseline - he prefers to be seen at [facility]. Agree - would recommend to reach out to maintainer sewer and waterworks [employer] to corroborate patient's history. Agree. At [...] he can have money to get anything else. Patient is a poor historian. Patient states [...] frequency, or dysuria. Patient states he wants [employer] to get elected and watches the news all day, but did not know when the election year occurred. Patient states he has been paying his rent through his bank, but does not remember which bank he uses. On chart review: Patient was brought from [facility] by EMS. Patient supposedly was at home watching TV and somehow found himself on the bus and ended up at [facility]. Concern for an amnestic episode. Pleasant and cooperative but vague when pressed for specific details. Thinks that he went to the store looking for help from someone because of his confusion. Fairly nonplussed about admission and does not seem to be anxious about leaving the hospital. Conversation with caregiver: Sister - Gabriela Mueller - [phone] - patient provided this phone number, which has been disconnected. Patient has not spoken to his sister in approximately 5-6 months. Patient denies having any friends in the area - states that he stays at home and watches TV all day. Advance Care Planning Healthcare Power ofAttorney: No Financial Power of Concession Supervisor: No Living Will:No Code Status: Full code [...] included, Numbers are drawn inside the clock point hope ira, Numbers are equally spaced from each other, hour hand points to correct number, minute hand points to correct number, and there are only 2 clock hands Total Score 6/7 Time Instructions: Twothirty-five Scores < 5 out of 7 correlate with significantly more driving errors J Gen Mine Administrator Supervisor Med 2005; 20:240-244 Labs and Imaging: Recent [...] lab results, imaging Follow-up: Follow up at [facility] in 4-6 weeks - post discharge [...] Please see fellow note for further recommendations. [facility] 06-15-2023 Note Med Team Progress No te [...] states he has one sister living in [place] and another in [place]. Patient is okay with medical team contacting sister in [place] for further information. He is A&Ox2. Patient [...] 126 U/L Final No results found for: CKTOTAL, CKMB, TROPONINI No results found for: PROCAL, CHOL, TRIG, HDL, TSH, VITD25, HGBA1C, VANCOTROUGH Assessment and Plan: Acute episode of [...] performed the associated (more content not included)... [facility] 06-14-2023 Note Formatting of this n ote might be different from the original. Care Managment Initial Assessment Date: 06/14/2023 Patient Name: Cory Mueller : 1950 Patient Information Source of Information: Patient Cognition/Language: WFL - Within Functional Limits, Other (Comment) (? mild confusion new or chronic) Permission given to speak with patient field sales representative/caregiver as indicated: (no EC noted. Patient did state that he has a sister Gabriela in [place] and another sister in [place]) Confirmation of Payer with patient/family: Yes Payer Name: [facility] Medicare/[facility]- medicaid only [place]: No Confirmation of Primary Care Physician: No [...] assistance with transport home. Stefanie Lipscomb RN [facility] 06-14-2023 Note Formatting of this n ote might be different from the original. Care Managment Initial Assessment Date: 06/14/2023 Patient Name: Cory Mueller : 1950 Patient Information Source of Information: Patient Cognition/Language: WFL - Within Functional Limits, Other (Comment) (? mild confusion new or chronic) Permission given to speak with patient field sales representative/caregiver as indicated: (no EC noted. Patient did state that he has a sister Gabriela in [place] and another sister in [place]) Confirmation of Payer with patient/family: Yes Payer Name: [employer] Medicare/[facility] mycare- medicaid only : No Confirmation of [...] assistance with transport home. Stefanie Lipscomb RN [facility] 06-14-2023 Nurse Note Pt arrives to room 629 he is currently AOx4, denies pain. He states the grocery store called the ambulance because he was unaware how he need up there. No open areas on his skin, same is pink warm and dry. Addendum: During assessment, pt does ask the same question a number of times and does not recall doing so. [facility] 06-14-2023 Note Attestation signed by Sierra Hay [...] PMH brought to ER when found at [facility] not knowing why he was there. He [...] forgetful. He lives alone, one sister in [place], but they do not really talk. No [...] Vitamin D, RPR 7AM-5PM: contact resident on [facility] Med A team (found by hoovering over [...] PMH of tobacco use that presented to [facility] on 06/13/2023 from [place] by EMS. Patient supposedly was at home watching TV and somehow found himself on the bus and ended up at [place]. He cannot why he got on the bus and what he was doing at [place]. He was A&Ox2 at this time. EMS [...] Cardiovascular: Rate an (more content not included)... [facility] 06-14-2023 History and physical note Internal [...] PMH of tobacco use that presented to [facility] on 06/13/2023 from [place] by EMS. Patient supposedly was at home watching TV and somehow found himself on the bus and ended up at [place]. He cannot why he got on the bus and what he was doing at [place]. He was A&Ox2 at this time. EMS [...] of delirium Amnestic event - Admit to F - Spoke to commercial specialist attending with following recs: - Can consider [...] Normal (BMI 18.5-24.9) - Disposition: Admit to F. - Given the signs and symptoms associated [...] forgetful. He lives alone, one sister in [place], but they do not really talk. No [...] Vitamin D, RPR 7AM-5PM: contact resident on [facility] Med A team (found by hoovering over [...] record, and communicating results to the patient. [facility] 06-14-2023 History and physical note Internal Medicine: Med Team Initial History and Physical Cory L Julien : 1950(72 y.o.) Date: June 14, 2023 [...] PMH of tobacco use that presented to [facility] on 06/13/2023 from [place] by EMS. Patient supposedly was at home watching TV and somehow found himself on the bus and ended up at [place]. He cannot why he got on the bus and what he was doing at [place]. He was A&Ox2 at this time. EMS [...] of delirium Amnestic event - Admit to [facility] - Spoke to commercial specialist attending with following recs: - Can consider [...] Normal (BMI 18.5-24.9) - Disposition: Admit to [facility]. - Given the signs and symptoms associated [...] PMH brought to ER when found at [facility] [place] not knowing why he was there. He [...] forgetful. He lives alone, one sister in [place], but they do not really talk. No [...] Vitamin D, RPR 7AM-5PM: contact resident on [facility] Med A team (found by hoovering over [...] to the patient. documented in this encounter [facility] 06-14-2023 Emergency department Note Pt sleeping, audible snoring noted. Equal and bilateral chest rise Ze Lópezroger 06/14/23 005 [facility] 06-14-2023 Emergency department Note Pt sleeping, audible snoring noted. Equal and bilateral chest rise Ze Lópezroger 06/14/2349 Pt states that at this time he does not have to urinate. Will attempt to get the urine sample at a later time FRANTZ Fitzgerald 06/13/232310 Emergency Department Encounter [facility] Patient: Cory Mueller : 1950 Date of Evaluation: 06/13/2023 ED Supervising Physician: Elham Borjas DO I personally evaluated Cory Mueller and [...] and memory loss. Patient found wandering near [employer] by EMS some memory loss from tonight. [...] contact the dictating provider for clarification.) Elham Borjas DO [employer] Elham Borjas DO 06/18/231909 EMERGENCY DEPARTMENT ENCOUNTER Pt Name: Cory Mueller Birthdate 1950 Date of evaluation: 06/13/2023 ED Provider: Elpidio Sorenson MD CHIEF COMPLAINT Chief Complaint Patient presents with Altered Mental Status Pt is brought into the ED by EMS. Per EMS the pt was [place] [address] [facility]. Pt states that he lives in [place]. Pt states that he remembers getting on [...] by EMS after being found wandering around [place], A&O x 2. Patient states he lives alone in an apartment and was watching TV. He first realized something was wrong with his memory when he was on the bus today on his way to [employer]. Patient states that he does not recall [...] his name and that we are in [place] and that it is May. When asked [...] Culture. Procedure Abnormality Status --------- ------ Complete Urinalysis[[id number]] Please view results for these tests on the individual orders. DRUGS OF ABUSE COMPLETE URINALYSIS TROPONIN I TROPONIN I CBC WITH AUTO DIFFERENTIAL COMPREHENSIVE METABOLIC PANEL WITH MG REFLEX Narrative: The following orders were created for panel order Comprehensive Metabolic Panel with Mg Reflex. Procedure Abnormality Status --------- ------ Comprehensive metabolic p...[[id number]] Please view results for these tests on the individual orders. COMPREHENSIVE METABOLIC PANEL All other labs were within normal range or not returned as of this dictation. EMERGENCY DEPARTMENT COURSE and DIFFERENTIAL DIAGNOSIS/MDM: Vitals: Vitals: 06/13/23 2219 06/13/23 2309 06/14/234 06/14/23413 BP: (!) 163/98 (!) 148/92 (!) 149/100 BP Location: Right arm Left arm Patient Position: Sitting Sitting Pulse: 70 80 77 Resp: 15 20 16 Temp: TempSrc: SpO2: 98% 100% 98% 100% Weight: Height: ED Course as of 06/14/23 0418 [facility] Jun 13, [id number] 72-year-old male presents via EMS after being [...] [PO] Elpidio Sorenson MD Diagnoses as of 06/14/23417 Delirium ED Medications managed: Medications - No [...] Medicine Provider Elpidio Sorenson MD Resident 06/14/23417 documented in this encounter [facility] 06-13-2023 Note NOTE: This result is for medical treatment only. Analysis performed using non-forensic procedures. [facility] 06-13-2023 Emergency department Note Pt states that at this time he does not have to urinate. Will attempt to get the urine sample at a later time FRANTZ Fitzgerald 06/13/23 6911 [facility] 06-13-2023 Physician Emergency department Note Emergency Department Encounter [facility] Patient: Cory Mueller : 1950 Date of Evaluation: 06/13/2023 ED Supervising Physician: Elham Borjas DO I personally evaluated Cory Mueller and [...] memory loss. Patient found wandering near [place] by EMS some memory loss from tonight. [...] contact the dictating provider for clarification.) Elham Borjas, DO [employer] Elham Borjas DO 06/18/231909 [facility] Phone: 06-13-2023 Physician Emergency department Note EMERGENCY DEPARTMENT ENCOUNTER Pt Name: Cory Mueller Birthdate 1950 Date of evaluation: 06/13/2023 ED Provider: Elpidio Sorenson MD CHIEF COMPLAINT Chief Complaint Patient presents with Altered Mental Status Pt is brought into the ED by EMS. Per EMS the pt was found wandering near the [place] [facility]. Pt states that he lives in [place]. Pt states that he remembers getting on [...] the bus today on his way to [facility]. Patient states that he does not recall [...] his name and that we are in [place] and that it is May. When asked [...] Culture. Procedure Abnormality Status --------- ------ Complete Urinalysis[[id number]] Please view results for these tests on the individual orders. DRUGS OF ABUSE COMPLETE URINALYSIS TROPONIN I TROPONIN I CBC WITH AUTO DIFFERENTIAL COMPREHENSIVE METABOLIC PANEL WITH MG REFLEX Narrative: The following orders were created for panel order Comprehensive Metabolic Panel with Mg Reflex. Procedure Abnormality Status --------- ------ Comprehensive metabolic p...[[id number]] Please view results for these tests on [...] as of 06/14/23 0418 [facility] Jun 13, [id number] 72-year-old male presents via EMS after being [...] [PO] Elpidio Sorenson MD Diagnoses as of 06/14/23417 Delirium ED Medications managed: Medications - No [...] Medicine Provider Elpidio Sorenson MD Resident 06/14/23417 [employer] Phone: Evaluation note Diagnosis Delirium- Primary Other alteration of consciousness Delirium Other alteration of consciousness Cognitive impairment Unspecified persistent mental disorders due to conditions classified elsewhere Acute metabolic encephalopathy Cognitive impairment Unspecified persistent mental disorders due to conditions classified elsewhere Debility Unspecified debility History of alcohol abuse Nondependent alcohol abuse, in remission [facility] Work Phone: Reason for referral (narrative)* Consultation (Routine) - Authorized Specialty Diagnoses / Procedures Referred By Contac t Referred To Contact Geriatric Medicine Diagnoses Cognitive impairment Procedures ME OFFICE/OUTPATIENT [facility] 60 MINUTES Bradley Millard MD [address] [place] [address] [facility] [address] [place] [address] Referral ID Status Reason Start Date Expiration Date Visits Requested Visits Authorized [id number] Authorized Specialty Services Required 06/15/2023 06/14/2024 1 1 [facility] Summary Purpose Family History No Family History Records FoundNo Family History Records FoundNo Family History Records FoundNo Family History Records Found Advance Directives No Advanced Directives Records FoundDocuments on File Type Date Recorded Patient Manager Regional Expl anation Advance Directives and Livin g Will 06/26/2023 1:08 PM Latest Code Status on File Code Status Date Activated Date Inactivated Comments Full Code 06/25/2023 11:33 PM 07/02/2023 7:44 PM Additional Source Comments (unrecognized sect ion and content) No Status Records FoundNo Status Records FoundNo Status Records FoundNo Status Records Found INFORMATION SOURCE (unrecogn ized section and content) DATE CREATED AUTHOR 01/12/2018 [facility] DATE CREATED AUTHOR AUTHOR'S ORGANIZ ATION 01/14/2022 [facility] DATE CREATED AUTHOR AUTHOR'S ORGANIZ ATION 07/17/2023 [facility] DATE CREATED AUTHOR AUTHOR'S ORGANIZ ATION 10/14/2024 [facility] Reason for Visit (unrecogniz ed section and content) Reason Comments Altered Mental Status Pt is brought into the ED by EMS. Per EMS the pt was found [place] [facility]. Pt states that he lives in [place]. Pt states that he remembers getting on the bus this morning. Pt states that he is not sure where he was going when he got on the bus. Pt states that he does not remember much from today. Specialty Diagnoses / Procedures Referred By Dennys georges Referred To Contact Diagnoses Delirium Procedures .. Sierra Hay MD [address] [facility] [address] [place] [address] [address] Referral ID Status Reason Start Date Expiration Date Visits Re quested Visits Authorized [id number] 1 1 Scheduled Active and Recently Administ ered Medications (unrecognized section and content) Medication Order 06/30/2023 07/01/2023 07/02/2023 Acetaminophen-Caffein e (Excedrin Tension Headache) 1 tablet (COMPLETED) 1 tablet, Oral, Once, On 07/01/23 at 2145, For 1 dose 2259 (Given - Provider: Jose Burns RN) folic acid (Folvite) tablet 1 mg 1 mg, Oral, Daily, First dose on 06/15/23 at 1530 0843 (Given - Provider: Fish Mcclellan RN) 0953 (Given - Provider: Carlene Robbins LPN) 0803 (Given - Provider: Spring Dacosta RN) ibuprofen tablet 400 mg (COMPLETED) 400 mg, Oral, Once, On 06/30/23 at 1245, For 1 dose 1257 (Given - Provider: Fish Mcclellan RN) Lidocaine 4 % patch 1 patch 1 patch, TransDERmal, Administer over 12 Hours, Daily, First dose on Sat06/25/23 at 1045, Apply patch to neck. Patch may remain in place for up to 12 hours in any 24 hour period. 0800 (Not Given - Provider: Fish Mcclellan RN - Reason: Patient/family refused) 0953 (Medication Applied - Provider: Carlene Robbins LPN - Comment: back of the neck)2153 (Medication Removed - Provider: Jose Burns RN) 0803 (Medication Applied - Provider: Spring Dacosta RN)1730 (Due: Medication Removed - Provider: Automatic Discharge Provider - Comment: Time automatically adjusted from order being discontinued) melatonin tablet 5 mg 5 mg, Oral, Nightly, First dose on Sat06/15/23 at 2100 2020 (Given - Provider: Naomy Morse RN) 2113 (Given - Provider: Jose Burns, KORIN) melatonin tablet 5 mg (COMPLETED) 5 mg, Oral, Once, On Sat07/01/23 at 0445, For 1 dose 0439 (Given - Provider: Naomy Morse RN) QUEtiapine (SEROquel) tablet 25 mg (COMPLETED) 25 mg, Oral, Once, On Sat07/02/23 at 0345, For 1 dose 0337 (Given - Provid er: Jose Burns RN) thiamine (Vitamin B1) tablet 100 mg 100 mg, Oral, Daily, First dose (after last modification) on Sat06/25/23 at 0900 0843 (Given - Provider: Fish Mcclellan RN) 0953 (Given - Provider: Carlene Robbins LPN) 0803 (Given - Provider: Spring Dacosta RN) traZODone (Desyrel) tablet 50 mg 50 mg, Oral, Nightly, First dose on Sat07/02/23 at 2100 PRN Medication Order 06/30/2023 07/01/2023 07/02/2023 ibuprofen tablet 600 mg 600 mg, Oral, Every 6 hours PRN, headaches, Starting on 06/30/23 at 1800 1847 (Given - Provider: Fish Mcclellan RN) 0431 (Given - Provider: Naomy Morse RN)1033 (Given - Provider: Carlene Robbins LPN)1758 (Given - Provider: Carlene Robbins LPN) 0803 (Given - Provider: Spring Dacosta, KORIN)1404 (Given - Provider: Spring Dacosta, KORIN) melatonin tablet 3 mg (CANCELED) 3 mg, Oral, Nightly PRN, sleep, Starting on Sat06/17/23 at 0413 2020 (Given - Provider: Naomy Morse RN) sodium chloride (Seward) 0.65 % nasal spray 1 spray 1 spray, Each Nostril, PRN, congestion, Starting on 06/15/23 at 2013 Care Teams (unrecognized sec tion and content) Team Status: Active Member Role Status Dates Yo KUHN Attending Provider Active Team Status: Inactive Member Role Status Dates Yo KUHN Attending Provider Active Goals (unrecognized section and content) Goals may be documented in a n alternate section FOR RECORDS PERTAINING TO PATIENTS WHO ARE [...] BE BASED ON THE PRIMARY CLINICAL RECORDS. [employer] provides no warranty or guarantee of the accuracy or completeness of information in this document.
[2024-10-26 07:41] LABS: Hematocrit 37.2 % (40-54); Mean Corp Hgb Conc 34.9 g/dL (32-36); Mean Corpuscular Hgb 28.7 pg (27.0-32.0); Mean Corpuscular Volume 82.1 fL (80-94); Mean Platelet Vol. 10.4 fl (6.2-12.0); Platelet Count 230 K/mm3 (150-450); RBC Distribution Width CV 13.5 % (11.6-14.6); RBC Distribution Width SD 40.1 fl (35.1-43.9); Red Blood Count 4.53 M/mm3 (4.6-6.2); White Blood Count 4.2 K/mm3 (4.4-11.0)
[2024-10-26 07:52] LABS: ALB/GLOB Ratio 0.8 RATIO (0.9-2.4); AST(SGOT) 22 U/L (<=37); Alanine Aminotransfer ALT/SGPT 17 U/L (<=46); Albumin, Serum 3.7 g/dL (3.4-4.8); Alkaline Phosphatase 88 U/L (40-129); Anion Gap 10 (5-15); BUN 14 mg/dL (4-19); BUN/Creat Ratio 13.1 RATIO (10-20); Calcium,Total 9.2 mg/dL (7.6-11.0); Carbon Dioxide 22.2 mmol/L (21.0-32.0); Chloride 105 mmol/L (98-108); EST Glomerular Filtration Rate 71 (>60); Globulin 4.6 g/dL (2.2-4.2); Glucose 77 mg/dL (70-99); Protein, Total 8.4 g/dL (5.9-8.4); Sodium Level 137 mmol/L (133-145); Total Bilirubin 0.48 mg/dL (0.00-1.30)
== END ==
LOC: OLS.ACW200 05:00
PROVIDERS: Visit Provider Family Medicine
DX: G93.41 Metabolic encephalopathy (principal); F10.27 Alcohol dependence with alcohol-induced persisting dementia; G47.00 Insomnia, unspecified; F17.210 Nicotine dependence, cigarettes, uncomplicated
CPT/HCPCS: 36415; 80053; 85027

== ENCOUNTER → 2025-04-21 05:00 | Outpatient (REF) | payer MEDICARE, MEDICAID, SELFPAY ==
--- OUTSIDE RECORDS SUMMARY | 2025-04-21 04:10 | XMS RPT_ITS | CCD ---
Author Organization [facility] [employer] [facility] Care Team Providers Care Engineering Documentation Specialist Name Role Phone WALKER LONGO Unavailable Unavailable [...] Facility (1 source) aminolevulinic acid Drug Allergy [facility] Repository (1 source) rescinnamine Drug Allergy [facility] Repository Medications Current Medications Medication Drug Class(es) [...] sources) Start: 06-15-2023 End: 07-02-2023 sodium chloride ([place]) 0.65 % nasal spray Administer 1 spray [...] Problem Date Documented Date Episodic/Chronic Alcohol-related disorders (6 sources) History of alcohol abuse; Translations: [Alcohol abuse, in remission] Onset: 06-15-2023 06-15-2023 Chronic Delirium, dementia, and amnestic and other cognitive disorders (2 sources) Delirium due to known physiological condition; Translations: [Delirium due to known physiological condition] Onset: 10-09-2024 Chronic Headache, including migraine (1 source) Headache; Translations: [HEADACHE] Onset: 01-10-2018 Episodic Malaise and fatigue (4 sources) Asthenia; Translations: [Other malaise] Onset: 06-15-2023 06-15-2023 Episodic Other nervous system disorders (4 sources) Metabolic encephalopathy; Translations: [Metabolic encephalopathy] Onset: 06-15-2023 06-15-2023 Chronic Other nervous system disorders (2 sources) Metabolic encephalopathy; Translations: [Metabolic encephalopathy] Onset: 10-09-2024 [...] unspecified] Onset: 06-13-2023 Episodic Residual codes; unclassified (2 sources) Insomnia, unspecified; Translations: [Insomnia, unspecified] Onset: 10-09-2024 Episodic Substance-related disorders (2 sources) Nicotine dependence, unspecified, uncomplicated; Translations: [Nicotine dependence, cigarettes, uncomplicated] Onset: 01-10-2018 Chronic Results Test Name Value Interpretation Reference Range Facility Basophil percentageOrdered B y: Yo Cobos on 07-17-2023 Chloride [Moles/Vol] 112 mmol/L 98-107 [facility] Glucose [Mass/Vol] 86 mg/dL 74-106 [facility] Hemoglobin (Bld) [Mass/Vol] 13.6 g/dL 13.0-16.5 [facility] Potassium [Moles/Vol] 4.1 mmol/L 3.5-5.1 [facility] Sodium [Moles/Vol] 142 mmol/L 136-145 [facility] WBC (Bld) [#/Vol] 4.9 10*3/uL 4.4-11.0 [facility] Determination of erythrocyte mean corpuscular volume (MCV)Ordered By: Yo Cobos on 07-17-2023 MCV (RBC) [Entitic vol] 85.8 fL 80-94 [facility] Erythrocyte distribution wid th ratioOrdered By: Yo Cobos on 07-17-2023 Erythrocyte distribution width (RBC) [Ratio] 14.6 % 11.6-14.6 [facility] Erythrocyte distribution wid th standard deviationOrdered By: Yo Cobos on 07-17-2023 Erythrocyte distribution width (RBC) [Entitic vol] 45.3 fL 35.1-43.9 [facility] Hematocrit Auto (Bld) [Volum e fraction]Ordered By: Yo Cobos on 07-17-2023 Hematocrit (Bld) [Volume fraction] 41.0 % 40-54 [facility] Laboratory - Chemistry and C hemistry - challengeOrdered By: Yo Cobos on 07-17-2023 CO2 [Moles/Vol] 27.0 mmol/L 21.0-32.0 [facility] Urea nitrogen/Creatinine [Mass ratio] 11.4 mg/mg 10-20 [facility] Laboratory - Hematology and Cell countsOrdered By: Yo Cobos on 07-17-2023 MCH (RBC) [Entitic mass] 28.5 pg 27.0-32.0 [facility] MCHC (RBC) [Mass/Vol] 33.2 g/dL 32-36 [facility] Platelet mean volume (Bld) [Entitic vol] 9.9 fL 6.2-12.0 [facility] Platelets (Bld) [#/Vol] 263 10*3/uL 150-450 [facility] No Panel InformationOrdered By: Yo Cobos on 07-17-2023 Estimated GFR (MDRD) Amer 69 mL/min >60 [facility] Comment on above: GFR Calc Estimated GFR (MDRD) Non-Af Amer 57 mL/min >60 [facility] Comment on above: Non- GFR Calc RBC Auto (Bld) [#/Vol]Ordere d By: Yo Cobos on 07-17-2023 RBC (Bld) [#/Vol] 4.78 10*6/uL 4.6-6.2 [facility] Serum or plasma calcium arminda urement (mass/volume)Ordered By: Yo Cobos on 07-17-2023 Calcium [Mass/Vol] 9.2 mg/dL 8.5-10.1 [facility] Serum or plasma creatinine m easurement (mass/volume)Ordered By: Yo Cobos on 07-17-2023 Creatinine [Mass/Vol] 1.32 mg/dL 0.70-1.30 [facility] Comment on above: The validity of the calculated GFR & GFRAA in patients over 70 years has not been determined. Clinical correlation is essential. Serum or plasma urea nitroge n measurement (mass/volume)Ordered By: Yo Cobos on 07-17-2023 Urea nitrogen [Mass/Vol] 15 mg/dL 7-18 [facility] Thin prep Papanicolaou smear with manual screeningOrdered By: Yo Cobos on 07-17-2023 Thin prep Papanicolaou smear with manual screening 3 5-15 [facility] Basophil percentageOrdered B y: Yo Cobos on 07-03-2023 Bilirubin [Mass/Vol] 0.50 mg/dL 0.20-1.00 [facility] Comment on above: For patients on eltr ombopag therapy, use of Dimension [place] TBIL is not recommended. Chloride [Moles/Vol] 109 mmol/L 98-107 [facility] Cholesterol [Mass/Vol] 142 mg/dL <200 [facility] Comment on above: <200 mg/dL Desirable 200-240 mg/dL Borderline >240 mg/dL High Risk Glucose [Mass/Vol] 85 mg/dL 74-106 [facility] Hemoglobin (Bld) [Mass/Vol] 13.5 g/dL 13.0-16.5 [facility] Potassium [Moles/Vol] 4.2 mmol/L 3.5-5.1 [facility] Protein [Mass/Vol] 8.0 g/dL 6.4-8.2 [facility] Sodium [Moles/Vol] 139 mmol/L 136-145 [facility] Triglyceride [Mass/Vol] 145 mg/dL <199 [facility] Comment on above: The drugs N-Acetylcy steine and Metamizole may falsely depress this assay.Serum Triglycerides Reference Interval Normal <150 mg/dL Borderline high 150 - 199 mg/dL High 200 - 499 mg/dL Very High > or = 500 mg/dL WBC (Bld) [#/Vol] 3.4 10*3/uL 4.4-11.0 [facility] CARECOORDon 07-03-2023 [facility] Patient Choice Patient Name: CORY MUELLER Date of : 1950 [facility] Determination of erythrocyte mean corpuscular volume (MCV)Ordered By: Yo Cobos on 07-03-2023 MCV (RBC) [Entitic vol] 86.6 fL 80-94 [facility] Erythrocyte distribution wid th ratioOrdered By: Yo Cobos on 07-03-2023 Erythrocyte distribution width (RBC) [Ratio] 14.5 % 11.6-14.6 [facility] Erythrocyte distribution wid th standard deviationOrdered By: Yo Cobos on 07-03-2023 Erythrocyte distribution width (RBC) [Entitic vol] 46.0 fL 35.1-43.9 [facility] Hematocrit Auto (Bld) [Volum e fraction]Ordered By: Yo Cobos on 07-03-2023 Hematocrit (Bld) [Volume fraction] 40.8 % 40-54 [facility] Laboratory - Chemistry and C hemistry - challengeOrdered By: Yo Cobos on 07-03-2023 Albumin/Globulin [Mass ratio] 0.7 {ratio} 0.9-2.4 [facility] ALP [Catalytic activity/Vol] 81 U/L 45-117 [facility] ALT [Catalytic activity/Vol] 35 U/L 16-61 [facility] Cholesterol in HDL [Mass/Vol] 42 mg/dL >40 [facility] Comment on above: The drugs N-Acetylcy steine and Metamizole may falsely depress this assay. Reference Range HDL <40 mg/dL Low HDL Cholesterol HDL >or= 60 mg/dL High HDL Cholesterol Cholesterol in LDL [Mass/Vol] 71 mg/dL 0-130 [facility] CO2 [Moles/Vol] 27.0 mmol/L 21.0-32.0 [facility] Globulin (S) [Mass/Vol] 4.7 g/dL 2.2-4.2 [facility] Magnesium [Mass/Vol] 2.3 mg/dL 1.6-2.6 [facility] Urea nitrogen/Creatinine [Mass ratio] 20.6 mg/mg 10-20 [facility] Laboratory - Hematology and Cell countsOrdered By: Yo Cobos on 07-03-2023 MCH (RBC) [Entitic mass] 28.7 pg 27.0-32.0 [facility] MCHC (RBC) [Mass/Vol] 33.1 g/dL 32-36 [facility] Platelet mean volume (Bld) [Entitic vol] 10.5 fL 6.2-12.0 [facility] Platelets (Bld) [#/Vol] 242 10*3/uL 150-450 [facility] No Panel InformationOrdered By: Yo Cobos on 07-03-2023 Estimated GFR (MDRD) Amer 98 mL/min >60 [facility] Comment on above: GFR Calc Estimated GFR (MDRD) Non-Af Amer 81 mL/min >60 [facility] Comment on above: Non- GFR Calc Vitamin D 25-Hydroxy 27.0 ng/mL [facility] Comment on above: Vitamin D 25(OH) Sta tus Range Deficiency <20 ng/mL (50nmol/L) Insufficiency 20 - 30 ng/mL (50 - 75 nmol/L) Sufficiency 30 - 100 ng/mL (75 - 250 nmol/L) Toxicity >100 ng/mL (>250 nmol/L) VLDL Cholesterol 29 mg/dL 5-40 [facility] RBC Auto (Bld) [#/Vol]Ordere d By: Yo Cobos on 07-03-2023 RBC (Bld) [#/Vol] 4.71 10*6/uL 4.6-6.2 [facility] Serum or plasma calcium arminda urement (mass/volume)Ordered By: Yo Cobos on 07-03-2023 Calcium [Mass/Vol] 9.0 mg/dL 8.5-10.1 [facility] Serum or plasma creatinine m easurement (mass/volume)Ordered By: Yo Cobos on 07-03-2023 Creatinine [Mass/Vol] 0.97 mg/dL 0.70-1.30 [facility] Comment on above: The validity of the calculated GFR & GFRAA in patients over 70 years has not been determined. Clinical correlation is essential. Serum or plasma thyroid stim ulating hormone (TSH) measurement (units/volume)Ordered By: Yo Cobos on 07-03-2023 TSH Qn 1.47 uIU/mL 0.358-3.74 [facility] Serum or plasma urea nitroge n measurement (mass/volume)Ordered By: Yo Cobos on 07-03-2023 Urea nitrogen [Mass/Vol] 20 mg/dL 7-18 [facility] Serum or plasma uric acid me asurement (mass/volume)Ordered By: Yo Cobos on 07-03-2023 Urate [Mass/Vol] 5.5 mg/dL 3.5-7.2 [facility] Comment on above: The drugs N-Acetylcy steine and Metamizole may falsely depress this assay. Thin prep Papanicolaou smear with manual screeningOrdered By: Yo Cobos on 07-03-2023 Thin prep Papanicolaou smear with manual screening 3.3 g/dL 3.2-5.0 [facility] Thin prep Papanicolaou smear with manual screening 19 U/L 15-37 [facility] Thin prep Papanicolaou smear with manual screening 3 5-15 [facility] Whole blood hemoglobin A1c/t otal hemoglobin ratio (mass fraction)Ordered By: Yo Cobos on 07-03-2023 HbA1c (Bld) [Mass fraction] 5.7 % 3.8-5.6 [facility] Comment on above: Normal < 5.7 % Predi abetic 5.7 - 6.4 % Diabetic >or= 6.5 % Please note range changes. CARECOORDon 07-02-2023 CARECOORD Next Site of Care Admission Date: 06/13/2023 09:56 PM Patient Name: CORY MUELLER Location: [place] [id number] Date of : 1950 Placement Information Referral Type:Correction/SNF - New Referral ID:[id number] Provider Name:Rahel chen [place] Address 1:[address] Address 2: City:[place] Selection Factors:Patient/Fami ly Choice State:[place] [facility] CARECOORD Requested to arrange transport to [facility]. Rashi Dumont set up for 3 pm-now 4:30-5 pharmacy picking tech. Used cot due to delirium on admission, became disoriented at [facility] , cognitive impairment, lacks capacity to make medical decisions, headache of unknown etiology. Updated Ex -Violeta RN, Radar Systems Engineer, [facility] and [facility]. Violeta to contact the building cleaner where patient lives to check on rent payments. She will also arrange to take some belongs to the facility. STIFF LEG OPERATOR suggested she work with the Sanforizer at the facility regarding future plans of returning home. Will make a Direction Home referral for home assist and potential future Assisted Living. [facility] CARECOORD 7000 was entered into [employer] for the [facility]. Discharge med list transmitted to [facility] via [facility] per [facility] request. [facility] Progress Noteon 07-02-2023 Progress Note Discharge instructions printed and placed in packet. Patient has no IV. Report called to [facility]. Transport scheduled to come around 1500. [facility] Progress Note Attestation signed by Nickie Fagan DO at 07/02/2023 4:22 PM I saw and evaluated the patient. I agree with the findings and plan of care as documented in the resident's note, except as noted in Green text. Patient seen and examined personally (Date of Sevice: 07/02/23) -d/w TCC -reviewed w/pt plan for discharge to SNF today 7AM-5PM: contact resident on "DEBBY Med A" (find by hovering over attending's name on [...] (97.6 ?F) (Temporal) Resp 12 Ht 5' 11" (1.803 m) Comment: per chart, pt est [...] light disturbance (more content not included)... Normal [facility] CARECOORDon 07-01-2023 CARECOORD Chart reviewed. Spoke to patient at bedside re: info that both [facility] and [facility] are able to accept. Patient stated he would prefer [facility]. Facility notified to start auth. [facility] Progress Noteon 07-01-2023 Progress Note Was paged [...] plan. 1 x dose of excedrin ordered. [facility] Progress Note Attestation signed by Nickie Fagan [...] communicates just wants to be somewhere in [place]. Though he does not have decisional capacity regarding is ability to safely live independently in community I do think we should continue to consider his preferences regarding SNF. -D/W TCC 7AM-5PM: contact resident on "DEBBY Med A" (find by hovering over attending's name on [...] (98.1 ?F) (Temporal) Resp 20 Ht 5' 11" (1.803 m) Comment: per chart, pt est [...] hygiene - (more content not included)... Normal [facility] Progress Note Patient has had trouble [...] of Melatonin was given. Naomy Morse RN [facility] IDNon 06-30-2023 IDN Problem: Safety - Adult Goal: Free from fall injury Outcome: Adequate for Discharge Problem: Discharge Planning Goal: Discharge to home or other facility with appropriate resources Outcome: Adequate for Discharge [facility] Progress Noteon 06-30-2023 Progress Note Nutrition update completed. Chart reviewed. Patient to be monitored and followed by the diet property maintenance technician. Normal [facility] Progress Note Attestation signed by Nickie Fagan DO at 06/30/2023 12:56 PM I saw and evaluated the patient. I agree with the findings and plan of care as documented in the resident's note, except as noted in Green text. Patient seen and examined personally during bedside teaching rounds (Date of Service: 06/30/23) -no new complaints. 7AM-5PM: contact resident on "ACH Med A" (find by hovering over attending's name on [...] - Diet: General Disposition: Continue admission to [facility] pending acceptance to SNF at (more content not included)... Normal [facility] Progress Noteon 06-29-2023 Progress Note Attestation signed by Nickie Fagan DO at 06/29/2023 1:29 PM I saw and evaluated the patient. I agree with the findings and plan of care as documented in the resident's note, except as noted in Green text. Patient seen and examined personally during bedside teaching rounds (Date of Service: 06/29/23) -no new complaints 7AM-5PM: contact resident on "ACH Med A" (find by hovering over attending's name on [...] None Objective: Last Vitals: BP MAP 158/90 (06/29/23 0717) 113 (06/29/23716) Arterial BP MAP Temp 36.7 [...] - Received 1 (more content not included)... [facility] CARECOORDon 06-28-2023 CARECOORD Received responses in [facility] and [facility] are not able to accept. Spoke to patient at bedside and reviewed list. He would like referrals to [facility], [facility] and [facility]. [facility] tasked to place referrals. [facility] Progress Noteon 06-28-2023 Progress Note Attestation signed by Nickie Fagan DO at 06/28/2023 5:52 PM I saw and evaluated the patient. I agree with the findings and plan of care as documented in the resident's note, except as noted in Green text. Patient seen and examined personally during bedside teaching rounds (Date of Service: 06/28/23) 7AM-5PM: contact resident on "ACH Med A" (find by hovering over attending's name on [...] seems satisfied with staying close to the [facility]. Patient continues to endorse a headache [...] (98.2 ?F) (Temporal) Resp 20 Ht 5' 11" (1.803 m) Comment: per chart, pt est [...] Received 1 d (more content not included)... [facility] Provided patient at bedside a choice list. Discussed with patient need for facility with special care for patients with forgetfulness. He agreed and stated that he would prefer to go to a facility in the [place]/[facility]. We reviewed the list and he would like referrals to [place], [facility] and [facility]. [facility] tasked to place referrals. [facility] PENG PICKARD left with ex-, CHAYO Mcdaniel to discuss facility choices for placement. [facility] Progress Noteon 06-27-2023 Progress Note Attestation signed [...] Expressed to me interested in facility in [facility]. List at bedside. Though pt has been found to lack capacity for discharge decisions especially in level of care needed I do think we should consider his desire to remain in [facility]. 7AM-5PM: contact resident on "ACH Med A" (find by hovering over attending's name on [...] (97.6 ?F) (Temporal) Resp 20 Ht 5' 11" (1.803 m) Comment: per chart, pt est [...] POA assisti (more content not included)... Normal [facility] CARECOORDon 06-26-2023 CARECOORD Left VM this AM to ex- and HCPOA to discuss discuss discharge planning. [facility] Progress Noteon 06-26-2023 Progress Note Attestation signed [...] can improve symptoms 7AM-5PM: contact resident on "ACH Med A" (find by hovering over attending's name on [...] (97.5 ?F) (Temporal) Resp 20 Ht 5' 11" (1.803 m) Comment: per chart, pt est [...] assisting with process (more content not included)... [facility] CARECOORDon 06-25-2023 CAREIRVING Spoke to patient at bedside to discuss [...] willing. Left VM with Violeta to discuss. ESE notified of this conversation. [facility] Progress Noteon 06-25-2023 Progress Note Nutrition update completed. Chart reviewed. Patient to be monitored and followed by the diet property maintenance technician. [facility] Progress Note Attestation signed by Nickie Fagan DO at 06/25/2023 6:21 PM I saw and evaluated the patient. I agree with the findings and plan of care as documented in the resident's note, except as noted in Green text. Patient seen and examined personally (Date of Sevice: 06/25/23) 7AM-5PM: contact resident on "ACH Med A" (find by hovering over attending's name on [...] (97.5 ?F) (Temporal) Resp 18 Ht 5' 11" (1.803 m) Comment: per chart, pt est [...] of Care: F (more content not included)... [facility] CARECOORDon 06-24-2023 CAREIRVING Met with patient. He stated he still wanted to name his ex -Violeta Mueller as his HCPOA. Patient completed paperwork with my assistance and explanation of what wording means on the form. Will make copies for patient's chart and provide him the original and copy for Violeta . Will follow. [facility] CARECOORD Chart reviewed. Patient is medically stable for discharge however, geriatrics deemed patient lacks decision making capacity for discharge. Per ESE note, patient ex- is willing to become patient HCPOA (patient choice) however not the guardian. Patient may need SEE completed for guardianship for placement if med team does not feel patient can discharge home safely. At present , I have been unable to set up home PCP visits. Per med team they will follow patient if discharges home for [facility]. ESE and YEIMY to continue to follow. [facility] Progress Noteon 06-24-2023 Progress Note Attestation with [...] in apt alone. 7AM-5PM: contact resident on "[facility] Med A" (find by hovering over attending's name on [...] (98.3 ?F) (Temporal) Resp 20 Ht 5' 11" (1.803 m) Comment: per chart, pt est [...] FULL CODE (more content not included)... Normal [facility] IDNon 06-22-2023 IDN The patient is Moderately Stable - Low risk of patient condition declining or worsening The patient's goals for the shift include remain safe The clinical goals for the shift include remain safe Problem: Safety - Adult Goal: Free from fall injury Outcome: Progressing Problem: Discharge Planning Goal: Discharge to home or other facility with appropriate resources Outcome: Progressing Normal [facility] Bacteria identified Aer cx N om (Unsp spec)Ordered By: Neville Rosa on 06-21-2023 Gram Stain Result No polymorphonuclear leukocytes seen [facility] Gram Stain Result No organisms seen [facility]-21-2023 [facility] Contacted ex -Violeta Mueller regarding agreeing to be patient's HCPOA if patient still wanted to name her. She is willing although unwilling to apply for Guardianship. She is also unable to provide ongoing supervision and assistance to patient if returns to his apartment. She doubts patient would agree to ecf placement. Violeta reports patient does have a [id number] lives with patient's sister- Gabriela although they do not get along, have not seen each other for a year and patient denies Sandro is his son. Will ask patient if wants to name Violeta as his HCPOA and if so can assist with paperwork. Will follow. [facility] Laboratory - Microbiology an d Antimicrobial susceptibilityon 06-21-2023 West Nile virus IgM IA Qn (CSF) 0.00 [facility] Comment on above: INTERPRETIVE INFORMA TION: [...] members of the Flaviviridae family, such as [place] encephalitis virus, show extensive cross-reactivity with West [...] developed and its performance characteristics determined by [email or web address]. It has not been cleared or approved by the US Food and Drug Administration. This test was performed in a CLIA certified laboratory and is intended for clinical purposes. Performed By: [email or web address] [address] [place] [id number] Hose Tubing Backer: Dany Mcmahan MD, PhD CLIA Number: [id number] Laboratory - Microbiology an d Antimicrobial susceptibilityOrdered By: Neville Rosa on 06-21-2023 Bacteria identified Aer cx Nom (Unsp spec) No growth at 4 days [facility] No Panel Informationon 06-21 [facility] [id number] 06-20-2023 [id number] Etymology Professor following case for Discharge Needs. Normal [facility] CARECOORDon 06-20-[address] Fagan in office today. She stated that [facility] would likely be able to follow patient in the community until a PCP can be established through home visits. Adam Mcguire, tasked in careport with this information so that patient can have HHC at discharge. I placed calls to multiple home visit companies: -[facility] at [phone] -unable to accept, does not take his insurance -[facility]: [phone] -left [facility] at [phone] -patient lives out of area/ provided me with number [phone] -spoke to Violeta at above number, who stated patient needs a provider to qualify and he is out of [place] ([place] she transferred me to [facility] to see if they would make an exception to see. Spoke to Gilda who stated an exception to provider rule is unlikely but provided me with number [phone] and stated should talk to Sierra Avendano, the data analysis assistant. [facility] [phone] -spoke to Violeta. She stated they are at capacity and on an 8 week wait list. I provided her with patient information and Gabriela Mueller's number (sister) for contact if and when they may be able to accept. Patient did not have a phone number in his chart. Number to call and inquire about set up, place on list is [phone]. Normal [facility] [place] Chart reviewed. Geriatric MD to see today to assess capacity. Will attempt home visit with new PCP if discharged home. Patient will not be able to have HHC until a PCP is established. Will have SW make DH referral if patient discharged home as well as APS referral if recommended. TCC and SW to continue to follow. [facility] - Microbiology an d Antimicrobial susceptibilityon 06-20-2023 Reagin Ab VDRL Ql (CSF) Non-Reactive Non Reacti ve [facility] Comment on above: Because the VDRL was Non Reactive, the VDRL titer was not performed. Performed By: [email or web address] [address] [place] [id number] Hose Tubing Backer: Dany Mcmahan MD, PhD CLIA Number: [id number] No Panel Informationon 06-20 [facility] Progress Noteon 06-20-2023 Progress Note Nutrition Assessment [...] (temporalis) Fluid Accumulation: No significant fluid accumulation [employer] Strength: Not Performed Nutrition Assessment: Pt with noted use of tobacco and EtOH without other PMH noted/indicated presented with confusion; per chart, pt was brought in on 06/13 by EMS from [facility], pt had reported being at home watching TV when he found himself somehow on a bus and ended up at [facility], pt cannot remember why he got on [...] to contact pt sister, Ms. Keith (from [place]) states she and her sister (who lives in [place]) are Cory's only living relatives. Stated pt [...] reccomending 24 hour care following discharge. RD recording studio internship saw pt. Pt stated that his appetiite has been normal and he has been eating his meals. Pt stated that he had veal, mashed potatoes, and carrots for lunch. (probably pot roast) When asked what he eats at home he stated whatever I have in the fridge". Pt stated he drinks whole milk frequently [...] (kg): 65.3 kg Total Energy Requirements (kcals/day): 6961-6075 kcal/day (28-30 kcal/kg) Weight Used for Protein [...] 76-100% Anthropometric Measures: Height: 180.3 cm (5' 11") (per chart, pt est 6') Current Body Weight: 66.5 kg (146 lb 9.6 oz) (bedscale) Admission Body Weight: 48.7 kg (107 lb 5.8 oz) (? bedscale) Usual Body Weight: 68 kg (150 lb) (per pt; no weight hx however can see from 2018 01/15/2018- 159#) % Weight Change (Calculated): -4 [place] Body Weight (lbs) (Calculated): 172 lbs [place] Body Weight (Kg) (Calculated): 78 kg % [place] Body Weight (Calculated): 83.7 % BMI (kg/m2) [...] PO i (more content not included)... Normal [facility] Progress Note PHYSICAL THERAPY [facility] Treatment Note Name/MRN: Cory Mueller ([id number]) Date of : 1950 Age: 72 y.o. [...] 06/20/23 Therapy Time Individual Co-treatment Time In 916 Time Out 09 Minutes 9 Timed Code Treatment Minutes: (1 gait) Lynda Mendoza PT [facility] Progress Note Attestation signed by Nickie Fagan [...] and geriatrics assistance. 7AM-5PM: contact resident on "ACH Med A" (find by hovering over attending's name on [...] (97.7 ?F) (Temporal) Resp 16 Ht 5' 11" (1.803 m) Comment: per chart, pt est [...] - Currentl (more content not included)... Normal [facility] Progress Note [facility] In[facility] Consult Service Late Entry [...] safely function in the community. OT recommending 10/12 supervision based on Jenise. -At this time [...] to the community. OK to discharge to [facility] from geriatric perspective once safe disposition is determined Time spent: 55 minutes Follow-up: will follow with you Subjective Chief Complaint: Chief Complaint Patient presents with Altered Mental Status Pt is brought into the ED by EMS. Per EMS the pt was found wandering near the bob couch on the [place] [facility]. Pt states that he lives in [place]. Pt states that he remembers getting on [...] history of migraines. Describes his brain as "mush". Acknowledges that he is having difficulty thinking. Doesn't think it will be a problem when he goes home because his apartment has an elevator. Tells me that his money has been "blocked". Says that he tried to use his [...] that he doesn't have a car. He "junked" it because it was too expensive to keep it. 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 Has two sisters. One lives in [place]. He says that the other sister does not have room for him to stay with her. He would prefer to go home to his apartment but would also be agreeable to fci care. I explained the concern for his ability to manage things like groceries, bills, etc given his cognitive impairment. He states that he understands. Thinks he will be ok at home, but cannot tell me why. I discussed Mr. Mueller with Dr. Fagan and Dr. Curry. Objective BP 147/93 Pulse 66 Temp 36.6 ?C (97.8 ?F) (Temporal) Resp 18 Ht 5' 11" (1.803 m) Comment: per chart, pt est [...] MD, 5 mg at 06/20/232114 sodium chloride ([place]) 0.65 % nasal spray 1 spray, 1 spray, Each Nostril, PRN, Matty Bryson DO, 1 spray at 06/18/23 0454 Physical Exam Constitutional: General: He is not in (more content not included)... Normal [facility] [facility]-19-2023 [facility] patient that his sister is willing to be his HCPOA. He does not want to name her,likely since he can not stay with her he does not want her into his buisiness. Will follow. [facility] Chart reviewed. Per ESE, patient is unable to move in with his sister however, she is agreeable to being the HCPOA. SW intends to complete. I spoke to patient at bedside about housing. He stated that he would agree to return to his apartment. I discussed with him setting up house calls for his PCP. He agrees. Placed call to [facility] and left VM to set up home visits. [facility] and SW to continue to follow [facility] [place] Also spoke with sister-Gabriela regarding HCPOA-she is willing. Did explain what all that means and she would be the contact in the future regarding medical issues. Will work with patient on paperwork. [facility] [place] Contacted sister- Gabriela Mueller-[phone]. She states she and family have not [...] ties with family years ago. Will follow. [facility] CBC W Auto Differential pane l (Bld)Ordered By: Hema Isaac on 06-19-2023 Basophils (Bld) [#/Vol] 0.1 10*3/uL 0.0 - 0.2 10*3/uL [facility] Basophils/100 WBC (Bld) 1.0 % 0.0 - 2.0 % [facility] Eosinophils (Bld) [#/Vol] 0.3 10*3/uL 0.0 - 0.5 10*3/uL [facility] Eosinophils/100 WBC (Bld) 5.5 % 1.0 - 6.0 % [facility] Erythrocyte distribution width (RBC) [Ratio] 14.8 % High 11.5 - 14.5 % [facility] Hematocrit (Bld) [Volume fraction] 40.1 % 40.0 - 52.0 % [facility] Hemoglobin (Bld) [Mass/Vol] 13.9 g/dL 13.0 - 18.0 g/dL [facility] Interpretation and review of laboratory results Abnormal [facility] Lymphocytes (Bld) [#/Vol] 1.3 10*3/uL 1.0 - 4.3 10*3/uL [facility] Lymphocytes/100 WBC (Bld) 24.3 % 20.0 - 40.0 % [facility] MCH (RBC) [Entitic mass] 29.6 pg 26.0 - 34.0 pg [facility] MCHC (RBC) [Mass/Vol] 34.6 % 32.0 - 36.0 % [facility] MCV (RBC) [Entitic vol] 85.6 fL 80.0 - 98.0 fL [facility] Monocytes (Bld) [#/Vol] 0.6 10*3/uL 0.0 - 0.8 10*3/uL [facility] Monocytes/100 WBC (Bld) 12.2 % High 2.0 - 10.0 % [facility] Neutrophils (Bld) [#/Vol] 3.0 10*3/uL 1.8 - 7.0 10*3/uL [facility] Neutrophils/100 WBC (Bld) 57.0 % 40.0 - 80.0 % [facility] Nucleated RBC/100 WBC (Bld) [Ratio] 0.0 % [facility] Platelet mean volume (Bld) [Entitic vol] 8.3 fL 7.4 - 12.4 fL [facility] Platelets (Bld) [#/Vol] 197 10*3/uL 140 - 440 10*3/uL [facility] RBC (Bld) [#/Vol] 4.68 10*6/uL 4.40 - 5.9 0 10*6/uL [facility] WBC (Bld) [#/Vol] 5.3 10*3/uL 3.6 - 10.7 10*3/uL [facility] CBC WITH AUTO DIFFERENTIALon 06-19-2023 Basophils (Bld) [#/Vol] 0.1 10*3/uL Normal 0.0-0.2 [facility] Comment on above: Performed By: #### L [id number] ####Credit Administration Specialist: SIERRA GUERRA ([id number])[facility] ([facility])[address] [place] [address] Basophils/100 WBC (Bld) 1.0 % Normal 0.0-2.0 S [facility] Comment on above: Performed By: #### L [id number] ####Credit Administration Specialist: SIERRA GUERRA ([id number])[facility] ([facility])[address] [place] [address] [place] Eosinophils (Bld) [#/Vol] 0.3 10*3/uL Normal 0.0-0.5 [facility] Comment on above: Performed By: #### L [id number] ####Credit Administration Specialist: SIERRA GUERRA ([phone])[facility])[address] [place] [address] Eosinophils/100 WBC (Bld) 5.5 % Normal 1.0-6.0 [facility] Comment on above: Performed By: #### L [id number] ####Credit Administration Specialist: SIERRA GUERRA ([phone])[facility])[address] [place] [address] Erythrocyte distribution width (RBC) [Ratio] 14.8 % High 11.5-14.5 [facility] Comment on above: Performed By: #### L [id number] ####Credit Administration Specialist: SIERRA GUERRA ([id number])[facility])[address] [place] [address] ERYTHROCYTE MEAN CORPUSCULAR HEMOGLOBIN CONCENTRATION (G/DL) BY AUTOMATED 34.6 % Normal 32.0-36.0 [facility] Comment on above: Performed By: #### L [id number] ####Credit Administration Specialist: SIERRA GUERRA ([phone])[address] Hematocrit (Bld) [Volume fraction] 40.1 % Normal 40.0-52.0 [facility] Comment on above: Performed By: #### L [id number] ####Credit Administration Specialist: SIERRA GUERRA ([phone])[facility])[address] [place] [address] Hemoglobin (Bld) [Mass/Vol] 13.9 g/dL Normal 13.0-18.0 [facility] Comment on above: Performed By: #### L [id number] ####Credit Administration Specialist: SIERRA GUERRA ([phone])[address] Lymphocytes (Bld) [#/Vol] 1.3 10*3/uL Normal 1.0-4.3 [facility] Comment on above: Performed By: #### L [id number] ####Credit Administration Specialist: SIERRA GUERRA ([phone])[address] Lymphocytes/100 WBC (Bld) 24.3 % Normal 20.0-40.0 [facility] Comment on above: Performed By: #### L [id number] ####Credit Administration Specialist: SIERRA GUERRA ([id number])[address] MCH (RBC) [Entitic mass] 29.6 pg Normal 26.0-34.0 [facility] Comment on above: Performed By: #### L [id number] ####Credit Administration Specialist: SIERRA GUERRA ([id number])[address] MCV (RBC) [Entitic vol] 85.6 fL Normal 80.0-98.0 [facility] Comment on above: Performed By: #### L [id number] ####Credit Administration Specialist: SIERRA GUERRA ([id number])[facility] ([facility])[address] [place] [address] Monocytes (Bld) [#/Vol] 0.6 10*3/uL Normal 0.0-0.8 [facility] Comment on above: Performed By: #### L [id number] ####Credit Administration Specialist: SIERRA GUERRA ([id number])[facility] ([facility])[address] [place] [address] Monocytes/100 WBC (Bld) 12.2 % High 2.0-10.0 [facility] Comment on above: Performed By: #### L [id number] ####Credit Administration Specialist: SIERRA GUERRA ([id number])[facility] ([facility])[address] [place] [address] Neutrophils (Bld) [#/Vol] 3.0 10*3/uL Normal 1.8-7.0 [facility] Comment on above: Performed By: #### L [id number] ####Credit Administration Specialist: SIERRA GUERRA ([id number])[facility] ([facility])[address] [place] [address] Neutrophils/100 WBC (Bld) 57.0 % Normal 40.0-80.0 [facility] Comment on above: Performed By: #### L [id number] ####Credit Administration Specialist: SIERRA GUERRA ([id number])[facility] ([facility])[address] [place] [address] NRBC (PER 100 WBCS) BY AUTOMATED COUNT 0.0 /100 WBCs Normal 0.0-2.0 [facility] Comment on above: Performed By: #### L [id number] ####Credit Administration Specialist: SIERRA GUERRA ([id number])[facility])[address] [place] [address] Platelet mean volume (Bld) [Entitic vol] 8.3 fL Normal 7.4-12.4 [facility] Comment on above: Performed By: #### L [id number] ####Credit Administration Specialist: SIERRA GUERRA ([id number])[facility] ([facility])[address] [place] [address] Platelets (Bld) [#/Vol] 197 10*3/uL Normal 140-440 [facility] Comment on above: Performed By: #### L [id number] ####Credit Administration Specialist: SIERRA GUERRA ([phone])[facility] ([facility])[address] [place] [address] RBC (Bld) [#/Vol] 4.68 10*6/uL Normal 4.40-5.90 [facility] Comment on above: Performed By: #### L [id number] ####Credit Administration Specialist: SIERRA GUERRA ([id number])[facility])[address] [place] [address] WBC (Bld) [#/Vol] 5.3 10*3/uL Normal 3.6-10.7 [facility] Comment on above: Performed By: #### L [id number] ####Credit Administration Specialist: SIERRA GUERRA ([id number])[facility] ([facility])[address] [place] [address] COMPREHENSIVE METABOLIC PANE Pavel 06-19-2023 Albumin [Mass/Vol] 3.8 g/dL Normal 3.5-5.0 [facility] Comment on above: Performed By: #### L [id number] ####Credit Administration Specialist: SIERRA GUERRA ([id number])[facility] ([facility])[address] [place] [address] ALP [Catalytic activity/Vol] 79 U/L Normal 38-126 [facility] Comment on above: Performed By: #### L [id number] ####Credit Administration Specialist: SIERRA GUERRA ([id number])[facility])[address] [place] [address] ALT [Catalytic activity/Vol] 16 U/L Normal 0-49 [facility] Comment on above: Performed By: #### L [id number] ####Credit Administration Specialist: SIERRA GUERRA ([phone])[facility])[address] [place] [address] Anion gap [Moles/Vol] 7 mmol/L Normal 3-13 [facility] Comment on above: Performed By: #### L [id number] ####Credit Administration Specialist: SIERRA GUERRA ([id number])[facility] ([facility])[address] [place] [address] AST [Catalytic activity/Vol] 24 U/L Normal 15-46 [facility] Comment on above: Performed By: #### L [id number] ####Credit Administration Specialist: SIERRA GUERRA ([id number])[facility] ([facility])[address] [place] [address] Bilirubin [Mass/Vol] 0.4 mg/dL Normal 0.2-1.3 [facility] Comment on above: Performed By: #### L [id number] ####Credit Administration Specialist: SIERRA GUERRA ([id number])[facility] ([facility])[address] [place] [address] Calcium [Mass/Vol] 8.8 mg/dL Normal 8.4-10.4 [facility] Comment on above: Performed By: #### L [id number] ####Credit Administration Specialist: SIERRA GUERRA ([id number])[facility] ([facility])[address] [place] [address] Chloride [Moles/Vol] 105 mmol/L Normal 98-107 [facility] Comment on above: Performed By: #### L [id number] ####Credit Administration Specialist: SIERRA GUERRA ([id number])[facility] ([facility])[address] [place] [address] CO2 [Moles/Vol] 23 mmol/L Normal 22-30 [facility] Comment on above: Performed By: #### L [id number] ####Credit Administration Specialist: SIERRA GUERRA ([id number])[facility])[address] [place] [address] Creatinine [Mass/Vol] 0.89 mg/dL Normal 0.66-1.25 [facility] Comment on above: Performed By: #### L [id number] ####Credit Administration Specialist: SIERRA GUERRA ([id number])[facility] ([facility])[address] [place] [address] GLOMERULAR FILTRATION RATE ML/MIN/1.73 SQ M.PREDICTED >90.0 Normal >60.0 [facility] Comment on above: Result Comment: Calc ulation based on the Chronic Kidney Disease Epidemiology Collaboration (CKD-EPI) equation refit without adjustment for race Performed By: #### L [id number] ####Credit Administration Specialist: SIERRA GUERRA ([id number])[facility] ([facility])[address] [place] [address] Glucose [Mass/Vol] 88 mg/dL Normal 70-100 [facility] Comment on above: Performed By: #### L [id number] ####Credit Administration Specialist: SIERRA GUERRA ([id number])[facility] ([facility])[address] [place] [address] Potassium [Moles/Vol] 4.4 mmol/L Normal 3.5-5.1 [facility] Comment on above: Performed By: #### L [id number] ####Credit Administration Specialist: SIERRA GUERRA ([id number])[facility] ([facility])[address] [place] [address] Protein [Mass/Vol] 8.0 g/dL Normal 6.3-8.2 [facility] Comment on above: Performed By: #### L [id number] ####Credit Administration Specialist: SIERRA GUERRA ([id number])[facility] ([facility])[address] [place] [address] [place] Sodium [Moles/Vol] 135 mmol/L Normal 135-145 [facility] Comment on above: Performed By: #### L [id number] ####Credit Administration Specialist: SIERRA GUERRA ([id number])[facility])[address] [place] [address] [place] Urea nitrogen [Mass/Vol] 18 mg/dL Normal 9-20 [facility] Comment on above: Performed By: #### L [id number] ####Credit Administration Specialist: SIERRA GUERRA ([id number])[facility] ([facility])[address] [place], [place] [id number] Comprehensive metabolic 1998 panelon 06-19-2023 Albumin [Mass/Vol] 3.8 g/dL 3.5 - 5.0 g/dL [facility] ALP [Catalytic activity/Vol] 79 U/L 38 - 126 U/L [facility] ALT [Catalytic activity/Vol] 16 U/L 0 - 49 U/L [facility] Anion gap [Moles/Vol] 7 mmol/L 3 - 13 mmol/L [facility] AST [Catalytic activity/Vol] 24 U/L 15 - 46 U/L [facility] Bilirubin [Mass/Vol] 0.4 mg/dL 0.2 - 1 .3 mg/dL [facility] Calcium [Mass/Vol] 8.8 mg/dL 8.4 - 10. 4 mg/dL [facility] Chloride [Moles/Vol] 105 mmol/L 98 - 10 7 mmol/L [facility] CO2 [Moles/Vol] 23 mmol/L 22 - 30 mmol/L [facility] Creatinine [Mass/Vol] 0.89 mg/dL 0.66 - 1.25 mg/dL [facility] GFR/1.73 sq M.predicted MDRD (S/P/Bld) [Vol rate/Area] - PINF [facility] Comment on above: Calculation based on the Chronic Kidney Disease Epidemiology Collaboration (CKD-EPI) equation refit without adjustment for race Glucose [Mass/Vol] 88 mg/dL 70 - 100 mg/dL [facility] Interpretation and review of laboratory results Normal [facility] Potassium [Moles/Vol] 4.4 mmol/L 3.5 - 5.1 mmol/L [facility] Protein [Mass/Vol] 8.0 g/dL 6.3 - 8.2 g/dL [facility] Sodium [Moles/Vol] 135 mmol/L 135 - 145 mmol/L [facility] Urea nitrogen [Mass/Vol] 18 mg/dL 9 - 20 mg/d L [facility] IDNon 06-19-2023 IDN The patient is Moderately [...] Goal: Assess Nutritional Intake Outcome: Progressing Normal [facility] Nursing Noteon 06-19-2023 Nursing Note Patient c/o headache 11/26. Tylenol was given earlier in the day for c/o headache. No relief. Informed MD. MD doesn't want to order any new medications at this time due to his mentation. Will continue to monitor. Normal [facility] Progress Noteon 06-19-2023 Progress Note Attestation signed [...] is isolated, no transportation to get to [facility], unclear that he could navigate getting to [facility] on his own. Unclear at this time if it will be safe for him to return home with memory issues and poor support system. Geriatrics following ? Need to address depression Encouraged him to get OOB and walk and sit in chair to avoid weakness. SW and TCC are involved as well for discharge planning. 7AM-5PM: contact resident on "ACH Med A" team (found by hoovering over attending's name [...] month his check was held by the press department manager. Informed patient that we spoke to [...] (98 ?F) (Temporal) Resp 20 Ht 5' 11" (1.803 m) Comment: per chart, pt est 6' Wt 144 lb (65.3 kg) SpO2 98% BMI 20.08 kg/m? Physical Exam Vitals reviewed. Constitutional: General: He is not in acute distress. Appearance: Normal appearance. He is not ill-appearing. HENT: Head: Normocephalic and atraumatic. Cardiovascular: Rate and Rhythm: Normal rate and regular rhythm. Pulses: Normal pulses. Heart sounds: Normal hea (more content not included)... Normal [facility] 06-18-2023 [facility] Work consulted for housing-"patient kicked out of his apartment." Reviewed chart, met with patient to discuss. Patient states he was kicked out of his apartment-[facility] housing in [place] for smoking in his apartment. STIFF LEG OPERATOR contacted [employer] [facility]-left message. Call received back from Yudith landa to the building cleaner-Saloni Nance. Yudith stated patient is not kicked [...] discuss with this with her. Will follow. Normal [facility] [place] entered room noting that patient is medically stable for discharge. Patient possibly homeless and ? Lacks capacity per MD. Notified SW to verify if patient can return to his apartment. MD to discuss with geriatrics an assessment for capacity to determine if patient will need medical decision maker /guardianship for placement or alternate plan ( if he has capacity) for discharge, ie homeless jail, medicaid for ECF. TCC to continue to follow. Normal [facility] CBC W Auto Differential pane l (Bld)Ordered By: Mike Syed on 06-18-2023 Basophils (Bld) [#/Vol] 0.1 10*3/uL 0.0 - 0.2 10*3/uL [facility] Basophils/100 WBC (Bld) 1.1 % 0.0 - 2.0 % [facility] Eosinophils (Bld) [#/Vol] 0.3 10*3/uL 0.0 - 0.5 10*3/uL [facility] Eosinophils/100 WBC (Bld) 6.6 % High 1.0 - 6.0 % [facility] Erythrocyte distribution width (RBC) [Ratio] 14.5 % 11.5 - 14.5 % [facility] Hematocrit (Bld) [Volume fraction] 38.6 % Low 40.0 - 52.0 % [facility] Hemoglobin (Bld) [Mass/Vol] 13.4 g/dL 13.0 - 18.0 g/dL [facility] Interpretation and review of laboratory results Abnormal [facility] Lymphocytes (Bld) [#/Vol] 1.2 10*3/uL 1.0 - 4.3 10*3/uL [facility] Lymphocytes/100 WBC (Bld) 23.9 % 20.0 - 40.0 % [facility] MCH (RBC) [Entitic mass] 29.6 pg 26.0 - 34.0 pg [facility] MCHC (RBC) [Mass/Vol] 34.7 % 32.0 - 36.0 % [facility] MCV (RBC) [Entitic vol] 85.2 fL 80.0 - 98.0 fL [facility] Monocytes (Bld) [#/Vol] 0.6 10*3/uL 0.0 - 0.8 10*3/uL [facility] Monocytes/100 WBC (Bld) 11.2 % High 2.0 - 10.0 % [facility] Neutrophils (Bld) [#/Vol] 2.9 10*3/uL 1.8 - 7.0 10*3/uL [facility] Neutrophils/100 WBC (Bld) 57.2 % 40.0 - 80.0 % [facility] Nucleated RBC/100 WBC (Bld) [Ratio] 0.1 % [facility] [employer] Platelet mean volume (Bld) [Entitic vol] 8.0 fL 7.4 - 12.4 fL [facility] Platelets (Bld) [#/Vol] 182 10*3/uL 140 - 440 10*3/uL [facility] RBC (Bld) [#/Vol] 4.53 10*6/uL 4.40 - 5.9 0 10*6/uL [facility] WBC (Bld) [#/Vol] 5.1 10*3/uL 3.6 - 10.7 10*3/uL [facility] CBC WITH AUTO DIFFERENTIALon 06-18-2023 Basophils (Bld) [#/Vol] 0.1 10*3/uL Normal 0.0-0.2 [facility] Comment on above: Performed By: #### L [id number] ####Credit Administration Specialist: SIERRA GUERRA ([phone])[address] Basophils/100 WBC (Bld) 1.1 % Normal 0.0-2.0 S [facility] Comment on above: Performed By: #### L [id number] ####Credit Administration Specialist: SIERRA GUERRA ([phone])[facility])[address] [place] [address] Eosinophils (Bld) [#/Vol] 0.3 10*3/uL Normal 0.0-0.5 [facility] Comment on above: Performed By: #### L [id number] ####Credit Administration Specialist: SIERRA GUERRA ([phone])[facility])[address] [place] [address] Eosinophils/100 WBC (Bld) 6.6 % High 1.0-6.0 [facility] Comment on above: Performed By: #### L [id number] ####Credit Administration Specialist: SIERRA GUERRA ([phone])[facility])[address] [place] [address] Erythrocyte distribution width (RBC) [Ratio] 14.5 % Normal 11.5-14.5 [facility] Comment on above: Performed By: #### L [id number] ####Credit Administration Specialist: SIERRA GUERRA ([phone])[facility])[address] [place] [address] ERYTHROCYTE MEAN CORPUSCULAR HEMOGLOBIN CONCENTRATION (G/DL) BY AUTOMATED 34.7 % Normal 32.0-36.0 [facility] Comment on above: Performed By: #### L [id number] ####Credit Administration Specialist: SIERRA GUERRA ([phone])[facility])[address] [place] [address] Hematocrit (Bld) [Volume fraction] 38.6 % Low 40.0-52.0 [facility] Comment on above: Performed By: #### L [id number] ####Credit Administration Specialist: SIERRA GUERRA ([phone])[facility])[address] [place] [address] Hemoglobin (Bld) [Mass/Vol] 13.4 g/dL Normal 13.0-18.0 [facility] Comment on above: Performed By: #### L [id number] ####Credit Administration Specialist: SIERRA GUERRA ([phone])[facility])[address] [place] [address] Lymphocytes (Bld) [#/Vol] 1.2 10*3/uL Normal 1.0-4.3 [facility] Comment on above: Performed By: #### L [id number] ####Credit Administration Specialist: SIERRA GUERRA ([phone])[facility])[address] [place] [address] Lymphocytes/100 WBC (Bld) 23.9 % Normal 20.0-40.0 [facility] Comment on above: Performed By: #### L [id number] ####Credit Administration Specialist: SIERRA GUERRA ([phone])[facility])[address] [place] [address] MCH (RBC) [Entitic mass] 29.6 pg Normal 26.0-34.0 [facility] Comment on above: Performed By: #### L [id number] ####Credit Administration Specialist: SIERRA GUERRA ([phone])[facility])[address] [place] [address] MCV (RBC) [Entitic vol] 85.2 fL Normal 80.0-98.0 [facility] Comment on above: Performed By: #### L [id number] ####Credit Administration Specialist: SIERRA GUERRA ([phone])[facility])[address] [place] [address] Monocytes (Bld) [#/Vol] 0.6 10*3/uL Normal 0.0-0.8 [facility] Comment on above: Performed By: #### L [id number] ####Credit Administration Specialist: SIERRA GUERRA ([phone])[facility])[address] [place] [address] Monocytes/100 WBC (Bld) 11.2 % High 2.0-10.0 [facility] Comment on above: Performed By: #### L [id number] ####Credit Administration Specialist: SIERRA GUERRA ([phone])[facility])[address] [place] [address] Neutrophils (Bld) [#/Vol] 2.9 10*3/uL Normal 1.8-7.0 [facility] Comment on above: Performed By: #### L [id number] ####Credit Administration Specialist: SIERRA GUERRA ([phone])[facility])[address] [place] [address] Neutrophils/100 WBC (Bld) 57.2 % Normal 40.0-80.0 [facility] Comment on above: Performed By: #### L [id number] ####Credit Administration Specialist: SIERRA GUERRA ([phone])[facility])[address] [place] [address] NRBC (PER 100 WBCS) BY AUTOMATED COUNT 0.1 /100 WBCs Normal 0.0-2.0 [facility] Comment on above: Performed By: #### L [id number] ####Credit Administration Specialist: SIERRA GUERRA ([phone])[facility])[address] [place] [address] Platelet mean volume (Bld) [Entitic vol] 8.0 fL Normal 7.4-12.4 [facility] Comment on above: Performed By: #### L [id number] ####Credit Administration Specialist: SIERRA GUERRA ([phone])[facility] ([facility])[address] [place] [address] Platelets (Bld) [#/Vol] 182 10*3/uL Normal 140-440 [facility] Comment on above: Performed By: #### L [id number] ####Credit Administration Specialist: SIERRA GUERRA ([phone])[facility])[address] [place] [address] RBC (Bld) [#/Vol] 4.53 10*6/uL Normal 4.40-5.90 [facility] Comment on above: Performed By: #### L [id number] ####Credit Administration Specialist: SIERRA GUERRA ([phone])[facility] ([facility])[address] [place] [address] WBC (Bld) [#/Vol] 5.1 10*3/uL Normal 3.6-10.7 [facility] Comment on above: Performed By: #### L [id number] ####Credit Administration Specialist: SIERRA GUERRA ([phone])[facility])[address] [place] [address] COMPREHENSIVE METABOLIC PANE Pavel 06-18-2023 Albumin [Mass/Vol] 3.8 g/dL Normal 3.5-5.0 [facility] Comment on above: Performed By: #### L [id number], [id number], YFI479 #### Credit Administration Specialist: SIERRA GUERRA ([phone]) [facility] ([facility]) [address] [place] [address] ALP [Catalytic activity/Vol] 84 U/L Normal 38-126 [facility] Comment on above: Performed By: #### L [id number], [id number], WSN003 #### Credit Administration Specialist: SIERRA GUERRA ([phone]) [facility] ([facility]) [address] [place] [address] ALT [Catalytic activity/Vol] 16 U/L Normal 0-49 [facility] Comment on above: Performed By: #### L [id number], XEQ660, ASN588 #### Credit Administration Specialist: SIERRA GUERRA ([phone]) [facility] ([facility]) [address] [place] [address] Anion gap [Moles/Vol] 10 mmol/L Normal 3-13 [facility] Comment on above: Performed By: #### L [id number], FXU062, NEW233 #### Credit Administration Specialist: SIERRA GUERRA ([phone]) [facility] ([facility]) [address] [place] [address] AST [Catalytic activity/Vol] 28 U/L Normal 15-46 [facility] Comment on above: Performed By: #### L [id number], [id number], JCE658 #### Credit Administration Specialist: SIERRA GUERRA ([phone]) [facility] ([facility]) [address] [place] [address] Bilirubin [Mass/Vol] 0.4 mg/dL Normal 0.2-1.3 [facility] Comment on above: Performed By: #### L [id number], SDQ308, ZRY080 #### Credit Administration Specialist: SIERRA GUERRA ([phone]) [facility] ([facility]) [address] [place] [address] [place] Calcium [Mass/Vol] 8.7 mg/dL Normal 8.4-10.4 [facility] Comment on above: Performed By: #### L [id number], LZI164, EJC379 #### Credit Administration Specialist: SIERRA GUERRA ([phone]) [facility] ([facility] [address] [place] [address] [place] Chloride [Moles/Vol] 104 mmol/L Normal 98-107 [facility] Comment on above: Performed By: #### L [id number], HUA820, DJI944 #### Credit Administration Specialist: SIERRA GUERRA ([phone]) [facility] [address] [place] [address] CO2 [Moles/Vol] 21 mmol/L Low 22-30 [facility] Comment on above: Performed By: #### L [id number], FRL651, KXV393 #### Credit Administration Specialist: SIERRA GUERRA ([phone]) [facility] ([facility]) [address] [place] [address] [place] Creatinine [Mass/Vol] 0.92 mg/dL Normal 0.66-1.25 [facility] Comment on above: Performed By: #### L [id number], TQR701, OWX189 #### Credit Administration Specialist: SIERRA GUERRA ([phone]) [facility] ([facility]) [address] [place] [address] [place] GLOMERULAR FILTRATION RATE ML/MIN/1.73 SQ M.PREDICTED 88.9 mL/min/1.73m*2 Normal >60.0 [facility] Comment on above: Result Comment: Calc ulation based on the Chronic Kidney Disease Epidemiology Collaboration (CKD-EPI) equation refit without adjustment for race Performed By: #### L [id number], HXX472, GBG549 #### Credit Administration Specialist: SIERRA GUERRA ([phone]) [facility] ([facility]) [address] [place] [address] [place] Glucose [Mass/Vol] 90 mg/dL Normal 70-100 [facility] Comment on above: Performed By: #### L [id number], DBD688, OSB628 #### Credit Administration Specialist: SIERRA GUERRA ([phone]) [facility]) [address] [place] [address] Potassium [Moles/Vol] 4.3 mmol/L Normal 3.5-5.1 [facility] Comment on above: Performed By: #### L KG8495, RMV235, PMQ768 #### Credit Administration Specialist: SIERRA GUERRA ([phone]) [facility] ([facility]) [address] [place] [address] Protein [Mass/Vol] 8.0 g/dL Normal 6.3-8.2 [facility] Comment on above: Performed By: #### L [id number], EWU286, TZF207 #### Credit Administration Specialist: SIERRA GUERRA ([phone]) [facility]) [address] [place] [address] Sodium [Moles/Vol] 135 mmol/L Normal 135-145 [facility] Comment on above: Performed By: #### L LT3506, PLQ005, XCV406 #### Credit Administration Specialist: SIERRA GUERRA ([phone]) [facility]) [address] [place] [address] Urea nitrogen [Mass/Vol] 20 mg/dL Normal 9-20 [facility] Comment on above: Performed By: #### L EU2898, YUP013, ZTV794 #### Credit Administration Specialist: SIERRA GUERRA ([phone]) [facility]) [address] [place] [address] Comprehensive metabolic 1998 panelon 06-18-2023 Albumin [Mass/Vol] 3.8 g/dL 3.5 - 5.0 g/dL [facility] ALP [Catalytic activity/Vol] 84 U/L 38 - 126 U/L [facility] ALT [Catalytic activity/Vol] 16 U/L 0 - 49 U/L [facility] Anion gap [Moles/Vol] 10 mmol/L 3 - 13 mmol/L [facility] AST [Catalytic activity/Vol] 28 U/L 15 - 46 U/L [facility] Bilirubin [Mass/Vol] 0.4 mg/dL 0.2 - 1 .3 mg/dL [facility] Calcium [Mass/Vol] 8.7 mg/dL 8.4 - 10. 4 mg/dL [facility] Chloride [Moles/Vol] 104 mmol/L 98 - 10 7 mmol/L [facility] CO2 [Moles/Vol] 21 mmol/L Low 22 - 30 mmol/L [facility] Creatinine [Mass/Vol] 0.92 mg/dL 0.66 - 1.25 mg/dL [facility] GFR/1.73 sq M.predicted MDRD (S/P/Bld) [Vol rate/Area] 88.9 mL/min/{1.73_m2} - PINF [facility] Comment on above: Calculation based on the Chronic Kidney Disease Epidemiology Collaboration (CKD-EPI) equation refit without adjustment for race Glucose [Mass/Vol] 90 mg/dL 70 - 100 mg/dL [facility] Interpretation and review of laboratory results Abnormal [facility] Potassium [Moles/Vol] 4.3 mmol/L 3.5 - 5.1 mmol/L [facility] Protein [Mass/Vol] 8.0 g/dL 6.3 - 8.2 g/dL [facility] Sodium [Moles/Vol] 135 mmol/L 135 - 145 mmol/L [facility] Urea nitrogen [Mass/Vol] 20 mg/dL 9 - 20 mg/d L [facility] Consulton 06-18-2023 Consult [facility] Social Work care coordination note. Normal [facility] Fungus identified Fungus sta in Nom (Unsp spec)Ordered By: Huy Zazueta on 06-18-2023 Calcofluor White Stain Result No fungal elements seen [facility] Reference Range: No fungal elements seen [facility] Progress Noteon 06-18-2023 Progress Note [facility] Inpatient Consult Service Admission Date: [...] --Recommend outpatient [facility] at [facility] [...] be available to this patient (ECF or jail?) and work with patient and family and choosing a safe discharge plan. Discussed with primary team and RN Follow-up: will follow with you Subjective Chief Complaint: Patient presents with Altered Mental Status Pt is brought into the ED by EMS. Per EMS the pt was found wandering [place] [facility]. Pt states that [place]. Pt states that he remembers getting on the bus this morning. Pt states that he is not sure where he was going when he got on the bus. Pt states that he does not remember much from today. Geriatrics consulted for "Episode of confusion and wondering to Sviral, unclear etiology. MMSE 20. Concerns for safety at home" HPI- The patient is new to me but seen by the Geriatric Inpatient Consult team. 72 y.o. year-old male admitted to acute care from home for confusion. Per H&P, patient was brought from [facility] by EMS. He was supposedly at home watching TV and somehow found himself on the bus and ended up at [facility]. Diagnosed with an amnestic event. Per chart review, lab work in the ED unremarkable. CT head and CXR showed no acute findings. Patient reported to live at home verdi and is able to perform all ADL's. He does not take any medications and has not seen a PCP in years. Per initial geriatric consult note, prior to admission patient was independent in ADL's and most IADL's. He has not driven for the last year and did not want to drive anymore due to the cost. I (more content not included)... Normal [facility] Progress Note Attestation signed by Sierra [...] walking in room, voiding well. Still endorses "memory problems." LP done yesterday, initial results are normal. Will follow up additional studies. Work up for any acute issues regarding mental status change has been complete. 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 Need to work on disposition now, as he is medically ok for discharge. His sister was contacted yesterday. Patient was given her correct number and wants to discuss if he can move in with her. If this is not possible, will work with SW regarding other options-?ECF 7AM-5PM: contact resident on "[facility] Med A" team (found by hoovering over attending's name [...] (98 ?F) (Temporal) Resp 18 Ht 5' 11" (1.803 m) Comment: per chart, pt est [...] 98 - (more content not included)... Normal [facility] CARECOORDon 06-17-2023 CARECOORD Chart reviewed. Patient with increased confusion and COLLIER. +Rx for possible meningitis, LP pending. Patient is green slipped. Geriatrics consulted for delirium. PT recommending home independently. Patient may need decision maker and placement if unable to care for self. TCC to continue to follow. Normal [facility] CBC W Auto Differential pane l (Bld)on 06-17-2023 Basophils (Bld) [#/Vol] 0.0 10*3/uL 0.0 - 0.2 10*3/uL [employer] Basophils/100 WBC (Bld) 0.9 % 0.0 - 2.0 % [facility] [employer] Eosinophils (Bld) [#/Vol] 0.3 10*3/uL 0.0 - 0.5 10*3/uL [employer] Eosinophils/100 WBC (Bld) 6.5 % High 1.0 - 6.0 % [employer] [employer] Erythrocyte distribution width (RBC) [Ratio] 14.5 % 11.5 - 14.5 % [employer] [employer] Hematocrit (Bld) [Volume fraction] 38.3 % Low 40.0 - 52.0 % [facility] Hemoglobin (Bld) [Mass/Vol] 13.1 g/dL 13.0 - 18.0 g/dL [facility] Interpretation and review of laboratory results Abnormal [facility] Lymphocytes (Bld) [#/Vol] 1.2 10*3/uL 1.0 - 4.3 10*3/uL [facility] Lymphocytes/100 WBC (Bld) 26.6 % 20.0 - 40.0 % [facility] MCH (RBC) [Entitic mass] 29.3 pg 26.0 - 34.0 pg [facility] MCHC (RBC) [Mass/Vol] 34.2 % 32.0 - 36.0 % [facility] MCV (RBC) [Entitic vol] 85.7 fL 80.0 - 98.0 fL [facility] Monocytes (Bld) [#/Vol] 0.5 10*3/uL 0.0 - 0.8 10*3/uL [facility] Monocytes/100 WBC (Bld) 11.2 % High 2.0 - 10.0 % [facility] Neutrophils (Bld) [#/Vol] 2.4 10*3/uL 1.8 - 7.0 10*3/uL [facility] Neutrophils/100 WBC (Bld) 54.8 % 40.0 - 80.0 % [facility] Nucleated RBC/100 WBC (Bld) [Ratio] 0.0 % [facility] Platelet mean volume (Bld) [Entitic vol] 7.9 fL 7.4 - 12.4 fL [facility] Platelets (Bld) [#/Vol] 175 10*3/uL 140 - 440 10*3/uL [facility] RBC (Bld) [#/Vol] 4.47 10*6/uL 4.40 - 5.9 0 10*6/uL [facility] WBC (Bld) [#/Vol] 4.4 10*3/uL 3.6 - 10.7 10*3/uL [facility] CBC WITH AUTO DIFFERENTIALon 06-17-2023 Basophils (Bld) [#/Vol] 0.0 10*3/uL Normal 0.0-0.2 [facility] Comment on above: Performed By: #### L [id number], LZW869, KIL041 #### Credit Administration Specialist: SIERRA GUERRA ([phone]) [facility] ([facility]) [address] [place] [address] Basophils/100 WBC (Bld) 0.9 % Normal 0.0-2.0 S [facility] Comment on above: Performed By: #### Minda [id number], BOD528, IGM610 #### Credit Administration Specialist: SIERRA GUERRA ([phone]) [facility] ([facility]) [address] [place] [address] Eosinophils (Bld) [#/Vol] 0.3 10*3/uL Normal 0.0-0.5 [facility] Comment on above: Performed By: #### Minda [id number], WHP282, GHK760 #### Credit Administration Specialist: SIERRA GUERRA ([phone]) [facility]) [address] [place] [address] Eosinophils/100 WBC (Bld) 6.5 % High 1.0-6.0 [facility] Comment on above: Performed By: #### Minda [id number], QNA637, VAY822 #### Credit Administration Specialist: SIERRA GUERRA ([phone]) [facility]) [address] [place] [address] Erythrocyte distribution width (RBC) [Ratio] 14.5 % Normal 11.5-14.5 [facility] Comment on above: Performed By: #### Minda WQ0266, OTQ266, NMK436 #### Credit Administration Specialist: SIERRA GUERRA ([phone]) [facility]) [address] [place] [address] ERYTHROCYTE MEAN CORPUSCULAR HEMOGLOBIN CONCENTRATION (G/DL) BY AUTOMATED 34.2 % Normal 32.0-36.0 [facility] Comment on above: Performed By: #### L [id number], NUZ871, VXA137 #### Credit Administration Specialist: SIERRA GUERRA ([phone]) [facility]) [address] [place] [address] Hematocrit (Bld) [Volume fraction] 38.3 % Low 40.0-52.0 [facility] Comment on above: Performed By: #### L [id number], LEZ858, LHX358 #### Credit Administration Specialist: SIERRA GUERRA ([phone]) [facility]) [address] [place] [address] Hemoglobin (Bld) [Mass/Vol] 13.1 g/dL Normal 13.0-18.0 [facility] Comment on above: Performed By: #### Minda [id number], RFI610, WGR239 #### Credit Administration Specialist: SIERRA GUERRA ([phone]) [facility] ([facility]) [address] [place] [address] Lymphocytes (Bld) [#/Vol] 1.2 10*3/uL Normal 1.0-4.3 [facility] Comment on above: Performed By: #### Minda YU6184, QQX125, MNW070 #### Credit Administration Specialist: SIERRA GUERRA ([phone]) [facility]) [address] [place] [address] Lymphocytes/100 WBC (Bld) 26.6 % Normal 20.0-40.0 [facility] Comment on above: Performed By: #### Minda XN5240, SMW223, VVF082 #### Credit Administration Specialist: SIERRA GUERRA ([phone]) [facility]) [address] [place] [address] MCH (RBC) [Entitic mass] 29.3 pg Normal 26.0-34.0 [facility] Comment on above: Performed By: #### L QY3620, RKO713, VQU596 #### Credit Administration Specialist: SIERRA GUERRA ([phone]) [facility]) [address] [place] [address] MCV (RBC) [Entitic vol] 85.7 fL Normal 80.0-98.0 [facility] Comment on above: Performed By: #### L AP7620, KMV517, KOU324 #### Credit Administration Specialist: SIERRA GUERRA ([phone]) [facility]) [address] [place] [address] Monocytes (Bld) [#/Vol] 0.5 10*3/uL Normal 0.0-0.8 [facility] Comment on above: Performed By: #### L HR0717, ORO362, DFK020 #### Credit Administration Specialist: SIERRA GUERRA ([phone]) [facility] ([facility]) [address] [place] [address] Monocytes/100 WBC (Bld) 11.2 % High 2.0-10.0 [facility] Comment on above: Performed By: #### L [id number], [id number], [id number] #### Credit Administration Specialist: SIERRA GUERRA ([phone]) [facility]) [address] [place] [address] Neutrophils (Bld) [#/Vol] 2.4 10*3/uL Normal 1.8-7.0 [facility] Comment on above: Performed By: #### L [id number], [id number], [id number] #### Credit Administration Specialist: SIERRA GUERRA ([phone]) [facility] ([facility]) [address] [place] [address] Neutrophils/100 WBC (Bld) 54.8 % Normal 40.0-80.0 [facility] Comment on above: Performed By: #### L [id number], [id number], [id number] #### Credit Administration Specialist: SIERRA GUERRA ([phone]) [facility] ([facility]) [address] [place] [address] NRBC (PER 100 WBCS) BY AUTOMATED COUNT 0.0 /100 WBCs Normal 0.0-2.0 [facility] Comment on above: Performed By: #### L [id number], [id number], VIZ353 #### Credit Administration Specialist: SIERRA GUERRA ([phone]) [facility]) [address] [place] [address] Platelet mean volume (Bld) [Entitic vol] 7.9 fL Normal 7.4-12.4 [facility] Comment on above: Performed By: #### L [id number], [id number], QSD733 #### Credit Administration Specialist: SIERRA GUERRA ([phone]) [facility] ([facility]) [address] [place] [address] Platelets (Bld) [#/Vol] 175 10*3/uL Normal 140-440 [facility] Comment on above: Performed By: #### L [id number], [id number], [id number] #### Credit Administration Specialist: SIERRA GUERRA ([phone]) [facility] ([facility]) [address] [place] [address] RBC (Bld) [#/Vol] 4.47 10*6/uL Normal 4.40-5.90 [facility] Comment on above: Performed By: #### L [id number], [id number], [id number] #### Credit Administration Specialist: SIERRA GUERRA ([phone]) [facility] ([facility]) [address] [place] [address] WBC (Bld) [#/Vol] 4.4 10*3/uL Normal 3.6-10.7 [facility] Comment on above: Performed By: #### L [id number], [id number], DNC167 #### Credit Administration Specialist: SIERRA GUERRA ([phone]) [facility] ([facility]) [address] [place] [address] COMPREHENSIVE METABOLIC PANE Pavel 06-17-2023 Albumin [Mass/Vol] 3.6 g/dL Normal 3.5-5.0 [facility] Comment on above: Performed By: #### L [id number] ####Credit Administration Specialist: SIERRA GUERRA ([phone])[facility] ([facility])[address] [place] [address] ALP [Catalytic activity/Vol] 75 U/L Normal 38-126 [facility] Comment on above: Performed By: #### L AB17 ####Credit Administration Specialist: SIERRA GUERRA ([phone])[facility] ([facility])[address] [place] [address] ALT [Catalytic activity/Vol] 17 U/L Normal 0-49 [facility] Comment on above: Performed By: #### L AB17 ####Credit Administration Specialist: SIERRA GUERRA ([phone])[facility] ([facility])[address] [place] [address] Anion gap [Moles/Vol] 4 mmol/L Normal 3-13 [facility] Comment on above: Performed By: #### L AB17 ####Credit Administration Specialist: SIERRA GUERRA ([phone])[facility] ([facility])[address] [place] [address] AST [Catalytic activity/Vol] 26 U/L Normal 15-46 [facility] Comment on above: Performed By: #### L AB17 ####Credit Administration Specialist: SIERRA GUERRA ([phone])[facility] ([facility])[address] [place] [address] Bilirubin [Mass/Vol] 0.5 mg/dL Normal 0.2-1.3 [facility] Comment on above: Performed By: #### L AB17 ####Credit Administration Specialist: SIERRA GUERRA ([phone])[facility] [place] [address] Calcium [Mass/Vol] 8.4 mg/dL Normal 8.4-10.4 [facility] Comment on above: Performed By: #### L AB17 ####Credit Administration Specialist: SIERRA GUERRA ([phone])[facility] ([facility])[address] [place] [address] [place] Chloride [Moles/Vol] 107 mmol/L Normal 98-107 [facility] Comment on above: Performed By: #### L AB17 ####Credit Administration Specialist: SIERRA GUERRA ([phone])[facility] ([facility])[address] [place] [address] [place] CO2 [Moles/Vol] 23 mmol/L Normal 22-30 [facility] Comment on above: Performed By: #### L AB17 ####Credit Administration Specialist: SIERRA GUERAR ([phone])[facility] ([facility])[address] [place] [address] [place] Creatinine [Mass/Vol] 0.92 mg/dL Normal 0.66-1.25 [facility] Comment on above: Performed By: #### L AB17 ####Credit Administration Specialist: SIERRA GUERRA ([phone])[facility])[address] [place] [address] GLOMERULAR FILTRATION RATE ML/MIN/1.73 SQ M.PREDICTED 88.9 mL/min/1.73m*2 Normal >60.0 [facility] Comment on above: Result Comment: Calc ulation based on the Chronic Kidney Disease Epidemiology Collaboration (CKD-EPI) equation refit without adjustment for race Performed By: #### L [id number] ####Credit Administration Specialist: SIERRA GUERRA ([phone])[facility])[address] [place] [address] Glucose [Mass/Vol] 94 mg/dL Normal 70-100 [facility] Comment on above: Performed By: #### L AB17 ####Credit Administration Specialist: SIERRA GUERRA ([phone])[facility] ([facility])[address] [place] [address] Potassium [Moles/Vol] 4.0 mmol/L Normal 3.5-5.1 [facility] Comment on above: Performed By: #### L [id number] ####Credit Administration Specialist: SIERRA GUERRA ([phone])[facility] ([facility])[address] [place] [address] Protein [Mass/Vol] 7.4 g/dL Normal 6.3-8.2 [facility] Comment on above: Performed By: #### L [id number] ####Credit Administration Specialist: SIERRA GUERRA ([phone])[facility] ([facility])[address] [place] [address] [place] Sodium [Moles/Vol] 134 mmol/L Low 135-145 [facility] Comment on above: Performed By: #### L [id number] ####Credit Administration Specialist: SIERRA GUERRA ([phone])[facility])[address] [place] [address] [place] Urea nitrogen [Mass/Vol] 19 mg/dL Normal 9-20 [facility] Comment on above: Performed By: #### L [id number] ####Credit Administration Specialist: SIERRA GUERRA ([phone])[address] CRYPTOCOCCAL ANTIGEN, CSFon 06-17-2023 CRYPTOCOCCAL ANTIGEN, CSF CRYPTOCCOCAL ANTIGEN, CSF Reference Not Detected Not Detected ORDER COMMENTS: Positive Cryptococcal antigens will be reflexed to titer. Additional charges apply. Methodology: Enzyme Immunoassay Normal [facility] Comment on above: Performed By: #### L [id number], [id number], [id number] ####Credit Administration Specialist: SIERRA GUERRA ([phone])[facility])[address] [place] [address] CULTURE, AEROBIC BACTERIA WI TH GRAM STAINon 06-17-2023 CULTURE, AEROBIC BACTERIA WITH GRAM STAIN CULTURE Reference No growth at 4 days GRAM STAIN RESULT Reference No polymorphonuclear leukocytes seen No organisms seen [ S = SUSCEPTIBLE R = RESISTANT I = INTERMEDIATE S-DD = Susceptible-dose dependent NS = Non-susceptible NO = No Interpretation ] Normal [facility] Comment on above: Performed By: #### L [id number], [id number], [id number] #### Credit Administration Specialist: SIERRA GUERRA ([phone]) [address] Comprehensive metabolic 1998 panelon 06-17-2023 Albumin [Mass/Vol] 3.6 g/dL 3.5 - 5.0 g/dL [facility] ALP [Catalytic activity/Vol] 75 U/L 38 - 126 U/L [facility] ALT [Catalytic activity/Vol] 17 U/L 0 - 49 U/L [facility] Anion gap [Moles/Vol] 4 mmol/L 3 - 13 mmol/L [facility] AST [Catalytic activity/Vol] 26 U/L 15 - 46 U/L [facility] Bilirubin [Mass/Vol] 0.5 mg/dL 0.2 - 1 .3 mg/dL [facility] Calcium [Mass/Vol] 8.4 mg/dL 8.4 - 10. 4 mg/dL [facility] Chloride [Moles/Vol] 107 mmol/L 98 - 10 7 mmol/L [facility] CO2 [Moles/Vol] 23 mmol/L 22 - 30 mmol/L [facility] Creatinine [Mass/Vol] 0.92 mg/dL 0.66 - 1.25 mg/dL [facility] GFR/1.73 sq M.predicted MDRD (S/P/Bld) [Vol rate/Area] 88.9 mL/min/{1.73_m2} - PINF [facility] Comment on above: Calculation based on the Chronic Kidney Disease Epidemiology Collaboration (CKD-EPI) equation refit without adjustment for race Glucose [Mass/Vol] 94 mg/dL 70 - 100 mg/dL [facility] Interpretation and review of laboratory results Abnormal [facility] Potassium [Moles/Vol] 4.0 mmol/L 3.5 - 5.1 mmol/L [facility] Protein [Mass/Vol] 7.4 g/dL 6.3 - 8.2 g/dL [facility] Sodium [Moles/Vol] 134 mmol/L Low 135 - 145 mmol/L [facility] Urea nitrogen [Mass/Vol] 19 mg/dL 9 - 20 mg/d L [facility] Cryptococcus sp Ag IA.rapid Ql (CSF)on 06-17-2023 Cryptococcus sp Ag IA Ql (CSF) Not detected Not Detected [facility] Interpretation and review of laboratory results Normal [facility] Positive Cryptococcal antigens will be reflexed to titer. Additional charges apply. Methodology: Enzyme Immunoassay [facility] FUNGAL CULTUREon 06-17-2023 FUNGAL CULTURE FUNGAL CULTURE Reference No fungus isolated after 21 days [ S = SUSCEPTIBLE R = RESISTANT I = INTERMEDIATE S-DD = Susceptible-dose dependent NS = Non-susceptible NO = No Interpretation ] Normal [facility] Comment on above: Performed By: #### L [id number], [id number], PIR260 #### Credit Administration Specialist: SIERRA GUERRA ([phone]) [facility] ([address] FUNGAL STAINon 06-17-2023 FUNGAL STAIN FUNGAL STAIN Reference No fungal elements seen ORDER COMMENTS: Reference Range: No fungal elements seen [ S = SUSCEPTIBLE R = RESISTANT I = INTERMEDIATE S-DD = Susceptible-dose dependent NS = Non-susceptible NO = No Interpretation ] Normal [facility] Comment on above: Performed By: #### L [id number], [id number], [id number] #### Credit Administration Specialist: SIERRA GUERRA ([phone]) [facility] ([facility]) [address] [place] [address] GLUCOSE, CSFon 06-17-2023 GLUCOSE, CSF 55 mg/dL Normal 40-70 [facility] Comment on above: Performed By: #### L [id number], [id number] ####Credit Administration Specialist: SIERRA GUERRA ([phone])[facility] ([facility])[address] [place] [address] HIV 1+2 Ab+HIV1 p24 Ag IA Ql Ordered By: Cr Leija on 06-17-2023 Interpretation and review of laboratory results Normal [facility] Laboratory - Chemistry and C hemistry - challengeOrdered By: Naomy Vargas on 06-17-2023 Glucose (CSF) [Mass/Vol] 55 mg/dL 40 - 70 mg/ dL [facility] Laboratory - Chemistry and C hemistry - challengeon 06-17-2023 Protein (CSF) [Mass/Vol] 36.1 mg/dL 12. 0 - 60.0 mg/dL [facility] Laboratory - Hematology and Cell countson 06-17-2023 RBC Manual cnt (CSF) [#/Vol] 0 /mm3 [facility] WBC Manual cnt (CSF) [#/Vol] 1 /mm3 NINF - 5 /mm3 [facility] RBC Manual cnt (CSF) [#/Vol] 1 /mm3 [facility] WBC Manual cnt (CSF) [#/Vol] 1 /mm3 NINF - 5 /mm3 [facility] Laboratory - Microbiology an d Antimicrobial susceptibilityOrdered By: Cr Leija on 06-17-2023 HIV 1+2 Ab+HIV1 p24 Ag IA Ql Non-Reactive Nonreactive [facility] Comment on above: The specimen was non -reactive for HIV-1 and HIV-2 antibodies and p24 antigen using an FDA-cleared 4th generation HIV test. Based on this non-reactive screen result, further reflexive testing was not indicated and was, therefore, not performed. 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 Tube number Nom (CSF) [ID] Tube 1 [facility] Appearance (CSF) Clear and Colorless [facility] Laboratory - Specimen inform ationOrdered By: Naomy Vargas on 06-17-2023 Appearance (CSF) Clear and Colorless [facility] MENINGITIS/ENCEPHALITIS PCR PANELon 06-17-2023 MENINGITIS/ENCEPHALITIS PCR PANEL [...] Detected ORDER COMMENTS: Methodology: Multiplex PCR Normal [facility] Comment on above: Performed By: #### L [id number], [id number], [id number] #### Credit Administration Specialist: SIERRA GUERRA ([phone]) [facility] ([facility] Meningitis+Encephalitis path ogens DNA and RNA panel PABLO+non-probe (CSF)Ordered By: Nataliya Frances on 06-17-2023 Cryptococcus neoformans/gattii Not detected Not Detected [facility] Cytomegalovirus Not detected Not Detected [facility] Enterovirus Not detected Not Detected [facility] Escherichia coli K1 Not detected Not Detected [facility] Haemophilus influenzae Not detected Not Detecte d [facility] Herpes simplex virus 1 Not detected Not Detecte d [facility] Herpes simplex virus 2 Not detected Not Detecte d [facility] Human herpesvirus 6 Not detected Not Detected [facility] Human parechovirus Not detected Not Detected [facility] Interpretation and review of laboratory results Normal [facility] Listeria monocytogenes Not detected Not Detecte d [facility] Neisseria meningitidis Not detected Not Detecte d [facility] S. agalactiae Org specific cx Ql (Vag fld) Not detected Not Detected [facility] Streptococcus pneumoniae Not detected Not Detec zabrina [facility] Varicella zoster virus Not detected Not Detecte d [facility] Methodology: Multiplex PCR [facility] No Panel Informationon 06-17 [facility] SUPERNATANT Clear and Colorless [facility] Tube 1 [facility] Technically successful uncomplicated fluoroscopically-carlos ded lumbar puncture. Report Dictated on Electronically Signed By: Abraham Deng MD Electronically Signed Date/Time: 06/17/2023 2:01 PM EST [facility] Patient Name: CORY MUELLER : [...] needle tip projecting over the L3-L4 interspace. [facility] Abraham Deng MD - 06/17/2023 Patient Name: CORY MUELL[facility] : 1950 [id number] Exam Date/Time: 06/17/2023 13:22 Procedure: IR LUMBAR [...] Electronically Signed Date/Time: 06/17/2023 2:01 PM EST [facility] Radiology Study observation (narrative) [facility] grant No Panel InformationOrdered By: Naomy Vargas on 06-17-2023 SUPERNATANT Clear and Colorless [facility] Tube 1 [facility] Nursing Noteon 06-17-2023 Nursing Note Patient arrived from , Dr. Hany Deng was in to speak with the patient regarding LP, consent was obtained. Patient was placed prone on exam table prepped and draped in sterile fashion. 12cc of clear CSF was collected for labs. Patient tolerated procedure well. Transferring to . . Normal [facility] PROTEIN, CSFon 06-17-2023 Appearance (U) Clear and Colorless Normal [facility] Comment on above: Performed By: #### L [id number], [id number] ####Credit Administration Specialist: SIERRA GUERRA ([phone])[facility] ([address] PROTEIN, CSF 36.1 mg/dL Normal 12.0-60.0 [facility] Comment on above: Performed By: #### L AB195, [id number] ####Credit Administration Specialist: SIERRA GUERRA ([phone])[facility] ([facility])[address] [place] [address] SUPERNATANT Clear and Colorless Normal [facility] Comment on above: Result Comment: ORDER COMMENTS: Tube 1 Performed By: #### L AB195, [id number] ####Credit Administration Specialist: SIERRA GUERRA ([phone])[facility] [place] [address] Result Comment: AMPAROE R COMMENTS: Tube 1 Progress Noteon 06-17-2023 [...] Accumulation: No significant fluid accumulation (per chart) 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 Normal [facility] Progress Note [facility] Inpatient Consult Service Admission Date: [...] at [facility] for more in depth [...] near the bob couch on the [place] [facility]. Pt states that he lives [place]. Pt states that he remembers getting on the bus this morning. Pt states that he is not sure where he was going when he got on the bus. Pt states that he does not remember much from today. Geriatrics consulted for "Episode of confusion and wondering to bob couch, unclear etiology. MMSE 20. Concerns for safety at home" HPI- The patient is new to me but seen by the Geriatric Inpatient Consult team. 72 y.o. year-old male admitted to acute care from home for confusion. Per H&P, patient was brought from [facility] by EMS. He was supposedly at home watching TV and somehow found himself on the bus and ended up at [facility]. Diagnosed with an amnestic event. Per [...] this a (more content not included)... Normal [facility] Progress Note Attestation signed by Sierra [...] tobacco. 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 EEG done was negative Plan today is for LP, but doubt any infectious cause of confusion Team will still attempt to find his sister. May need help from [employer] in Protective services. Will need SW assistance regarding dispo. May need competency eval by Geriatrics and ?guardianship 7AM-5PM: contact resident on "ACH Med A" team (found by hoovering over attending's name [...] (97.6 ?F) (Temporal) Resp 20 Ht 6' 0.01" (1.829 m) Wt 107 lb 5.8 oz [...] Range Status (more content not included)... Normal [facility] Reagin Ab RPR Ql (S)Ordered By: Zachariah Sullivan on 06-17-2023 Interpretation and review of laboratory results Normal [facility] SPINAL FLUID CELL COUNTon APPEARANCE CEREBRAL SPINAL FLUID Clear and Colorless Normal [facility] Comment on above: Performed By: #### L [id number] ####Credit Administration Specialist: SIERRA GUERRA ([phone])[address] APPEARANCE OF SUPERNATANT CEREBRAL SPINAL FLUID Normal [facility] Comment on above: Result Comment: Cent rifugation not possible, due to Probable Prion Disease Protocol. Performed By: #### L AB142 ####Credit Administration Specialist: SIERRA GUERRA ([phone])[facility])[address] [place] [address] ERYTHROCYTES (#/MM3) IN CEREBRAL SPINAL FLUID 1 /mm3 Normal [facility] Comment on above: Performed By: #### L AB142 ####Credit Administration Specialist: SIERRA GUERRA ([phone])[facility])[address] [place] [address] ERYTHROCYTES (#/MM3) IN CEREBRAL SPINAL FLUID 0 /mm3 Normal [facility] Comment on above: Performed By: #### L AB142 ####Credit Administration Specialist: SIERRA GUERRA ([phone])[facility])[address] [place] [address] LEUKOCYTES (#/MM3) IN CEREBRAL SPINAL FLUID 1 /mm3 Normal <5 [facility] Comment on above: Performed By: #### L AB142 ####Credit Administration Specialist: SIERRA [phone])[facility] ([facility])[address] [place], [place] [address] [place] [address] TUBE NUMBER OF CEREBRAL SPINAL FLUID Tube 1 Normal [facility] Comment on above: Performed By: #### L AB142 ####Credit Administration Specialist: SIERRA DOMINGOBIN ([phone])[facility] ([facility])[address] [place], [place] [address] [place] [address] TUBE NUMBER OF CEREBRAL SPINAL FLUID Tube 4 Normal [facility] Comment on above: Performed By: #### L AB142 ####Credit Administration Specialist: SIERRA DOMINGOBIN ([phone])[facility] ([facility])[address] VDRL CSF WITH REFLEXon 06-17 VDRL W/ REFLEX, CSF Non-Reactive Normal Non Reactive S [facility] Comment on above: Result Comment: Because the VDRL was Non Reactive, the VDRL titer was not performed. Performed By: [email or web address] [address] [place] [id number] Hose Tubing Backer: Dany Mcmahan MD, PhD CLIA Number: [id number] Performed By: #### L [id number], [id number] ####[facility] ([facility])[address] [place] [phone] [facility] [place] AB IGM, CSFon 05-21 [place] [facility] IGM, CSF 0.00 IV Normal <=0.89 [facility] Comment on above: Result Comment: INTE RPRETIVE [...] members of the Flaviviridae family, such as [place] encephalitis virus, show extensive cross-reactivity with [place] [...] developed and its performance characteristics determined by [email or web address]. It has not been cleared or approved by the [place] Food and Drug Administration. This test was performed in a CLIA certified laboratory and is intended for clinical purposes. Performed By: [facility] [employer] [address] [place] [id number] [employer] Tub[employer] Backer: Dany Mcmahan MD, PhD CLIA Number: [id number] Performed By: #### L [id number], [id number] ####[facility] ([facility])[address] [place] [address] CBC W Auto Differential pane l (Bld)Ordered By: Nick Pinzon on 06-16-2023 Basophils (Bld) [#/Vol] 0.1 10*3/uL 0.0 - 0.2 10*3/uL [facility] [employer] Basophils/100 WBC (Bld) 1.4 % 0.0 - 2.0 % [facility] [employer] Eosinophils (Bld) [#/Vol] 0.3 10*3/uL 0.0 - 0.5 10*3/uL [facility] Eosinophils/100 WBC (Bld) 6.8 % High 1.0 - 6.0 % [facility] [employer] Erythrocyte distribution width (RBC) [Ratio] 14.5 % 11.5 - 14.5 % [facility] [employer] Hematocrit (Bld) [Volume fraction] 38.9 % Low 40.0 - 52.0 % [facility] [employer] Hemoglobin (Bld) [Mass/Vol] 13.3 g/dL 13.0 - 18.0 g/dL [facility] Interpretation and review of laboratory results Abnormal [facility] [employer] Lymphocytes (Bld) [#/Vol] 1.1 10*3/uL 1.0 - 4.3 10*3/uL [facility] [employer] Lymphocytes/100 WBC (Bld) 28.2 % 20.0 - 40.0 % [facility] MCH (RBC) [Entitic mass] 29.1 pg 26.0 - 34.0 pg [facility] MCHC (RBC) [Mass/Vol] 34.2 % 32.0 - 36.0 % [facility] MCV (RBC) [Entitic vol] 84.9 fL 80.0 - 98.0 fL [facility] Monocytes (Bld) [#/Vol] 0.5 10*3/uL 0.0 - 0.8 10*3/uL [facility] Monocytes/100 WBC (Bld) 13.5 % High 2.0 - 10.0 % [facility] Neutrophils (Bld) [#/Vol] 1.9 10*3/uL 1.8 - 7.0 10*3/uL [facility] Neutrophils/100 WBC (Bld) 50.1 % 40.0 - 80.0 % [facility] Nucleated RBC/100 WBC (Bld) [Ratio] 0.0 % [facility] Platelet mean volume (Bld) [Entitic vol] 8.4 fL 7.4 - 12.4 fL [facility] Platelets (Bld) [#/Vol] 179 10*3/uL 140 - 440 10*3/uL [facility] RBC (Bld) [#/Vol] 4.58 10*6/uL 4.40 - 5.9 0 10*6/uL [facility] WBC (Bld) [#/Vol] 3.7 10*3/uL 3.6 - 10.7 10*3/uL [facility] CBC WITH AUTO DIFFERENTIALon 06-16-2023 Basophils (Bld) [#/Vol] 0.1 10*3/uL Normal 0.0-0.2 [facility] Comment on above: Performed By: #### L [id number] ####Credit Administration Specialist: SIERRA GUERRA ([phone])[facility] ([facility])[address] [place] [address] Basophils/100 WBC (Bld) 1.4 % Normal 0.0-2.0 [facility] Comment on above: Performed By: #### L [id number] ####Credit [employer] Specialist: SIERRA GUERRA ([phone])[facility] ([facility])[address] [place] [address] Eosinophils (Bld) [#/Vol] 0.3 10*3/uL Normal 0.0-0.5 [facility] Comment on above: Performed By: #### L [id number] ####Credit [employer] Specialist: SIERRA GUERRA ([phone])[facility])[address] [place] [address] Eosinophils/100 WBC (Bld) 6.8 % High 1.0-6.0 [facility] Comment on above: Performed By: #### L [id number] ####Credit [employer] Specialist: SIERRA GUERRA ([phone])[facility])[address] [place] [address] Erythrocyte distribution width (RBC) [Ratio] 14.5 % Normal 11.5-14.5 [facility] Comment on above: Performed By: #### L [id number] ####[employer] Specialist: SIERRA GUERRA ([phone])[facility])[address] [place] [address] ERYTHROCYTE MEAN CORPUSCULAR HEMOGLOBIN CONCENTRATION (G/DL) BY AUTOMATED 34.2 % Normal 32.0-36.0 [facility] Comment on above: Performed By: #### L [id number] ####Credit [employer] Specialist: SIERRA GUERRA ([phone])[facility])[address] [place] [address] Hematocrit (Bld) [Volume fraction] 38.9 % Low 40.0-52.0 [facility] Comment on above: Performed By: #### L [id number] ####Credit [employer] Specialist: SIERRA GUERRA ([phone])[facility])[address] [place] [address] Hemoglobin (Bld) [Mass/Vol] 13.3 g/dL Normal 13.0-18.0 [facility] Comment on above: Performed By: #### L [id number] ####Credit Administration Specialist: SIERRA GUERRA ([phone])[facility])[address] [place] [address] Lymphocytes (Bld) [#/Vol] 1.1 10*3/uL Normal 1.0-4.3 [facility] Comment on above: Performed By: #### L [id number] ####Credit Administration Specialist: SIERRA GUERRA ([phone])[facility])[address] [place] [address] Lymphocytes/100 WBC (Bld) 28.2 % Normal 20.0-40.0 [facility] Comment on above: Performed By: #### L [id number] ####Credit Administration Specialist: SIERRA GUERRA ([phone])[facility])[address] [place] [address] MCH (RBC) [Entitic mass] 29.1 pg Normal 26.0-34.0 [facility] Comment on above: Performed By: #### L [id number] ####Credit [employer] Specialist: SIERRA GUERRA ([phone])[facility])[address] [place] [address] MCV (RBC) [Entitic vol] 84.9 fL Normal 80.0-98.0 [facility] Comment on above: Performed By: #### L [id number] ####[employer] Specialist: SIERRA GUERRA ([phone])[facility])[address] [place] [address] Monocytes (Bld) [#/Vol] 0.5 10*3/uL Normal 0.0-0.8 [facility] Comment on above: Performed By: #### L [id number] ####Credit Administration Specialist: SIERRA GUERRA ([phone])[facility])[address] [place] [address] Monocytes/100 WBC (Bld) 13.5 % High 2.0-10.0 [facility] Comment on above: Performed By: #### L [id number] ####[employer] Specialist: SIERRA GUERRA ([phone])[facility])[address] [place] [address] Neutrophils (Bld) [#/Vol] 1.9 10*3/uL Normal 1.8-7.0 [facility] Comment on above: Performed By: #### L [id number] ####Credit [employer] Specialist: SIERRA GUERRA ([phone])[facility])[address] [place] [address] Neutrophils/100 WBC (Bld) 50.1 % Normal 40.0-80.0 [facility] Comment on above: Performed By: #### L [id number] ####Credit Administration Specialist: SIERRA GUERRA ([phone])[facility])[address] [place] [address] NRBC (PER 100 WBCS) BY AUTOMATED COUNT 0.0 /100 WBCs Normal 0.0-2.0 [facility] Comment on above: Performed By: #### L [id number] ####[employer] Specialist: SIERRA GUERRA ([phone])[facility])[address] [place] [address] Platelet mean volume (Bld) [Entitic vol] 8.4 fL Normal 7.4-12.4 [facility] Comment on above: Performed By: #### L [id number] ####[employer] Specialist: SIERRA GUERRA ([phone])[facility])[address] [place] [address] [place] Platelets (Bld) [#/Vol] 179 10*3/uL Normal 140-440 [facility] Comment on above: Performed By: #### L [id number] ####[employer] Specialist: SIERRA GUERRA ([phone])[facility])[address] [place] [address] RBC (Bld) [#/Vol] 4.58 10*6/uL Normal 4.40-5.90 [facility] Comment on above: Performed By: #### L [id number] ####[employer] Specialist: SIERRA GUERRA ([phone])[facility])[address] [place] [address] WBC (Bld) [#/Vol] 3.7 10*3/uL Normal 3.6-10.7 [facility] Comment on above: Performed By: #### L [id number] ####[employer] Specialist: SIERRA GUERRA ([phone])[facility] ([facility])[address] [place] [address] COMPREHENSIVE METABOLIC PANE Pavel 06-16-2023 Albumin [Mass/Vol] 3.7 g/dL Normal 3.5-5.0 [facility] Comment on above: Performed By: #### L [id number] ####[employer] Specialist: SIERRA GUERRA ([phone])[facility] [place] [address] ALP [Catalytic activity/Vol] 74 U/L Normal 38-126 [facility] Comment on above: Performed By: #### L [id number] ####[employer] Specialist: SIERRA GUERRA ([phone])[facility] ([facility])[address] [place] [address] ALT [Catalytic activity/Vol] 18 U/L Normal 0-49 [facility] Comment on above: Performed By: #### L [id number] ####[employer] Specialist: SIERRA GUERRA ([phone])[facility] ([facility])[address] [place] [address] Anion gap [Moles/Vol] 5 mmol/L Normal 3-13 [facility] Comment on above: Performed By: #### L [id number] ####Credit Administration Specialist: SIERRA GUERRA ([phone])[facility] ([facility])[address] [place] [address] AST [Catalytic activity/Vol] 29 U/L Normal 15-46 [facility] Comment on above: Performed By: #### L [id number] ####[employer] Specialist: SIERRA GUERRA ([phone])[facility] ([facility])[address] [place] [address] [place] Bilirubin [Mass/Vol] 0.4 mg/dL Normal 0.2-1.3 [facility] Comment on above: Performed By: #### L [id number] ####Credit Administration Specialist: SIERRA GUERRA ([phone])[facility] ([facility])[address] [place] [address] [place] Calcium [Mass/Vol] 8.5 mg/dL Normal 8.4-10.4 [facility] Comment on above: Performed By: #### L [id number] ####Credit [employer] Specialist: SIERRA GUERRA ([phone])[facility] [place] [address] Chloride [Moles/Vol] 107 mmol/L Normal 98-107 [facility] Comment on above: Performed By: #### L [id number] ####Credit Administration Specialist: SIERRA GUERRA ([phone])[facility] [place] [address] CO2 [Moles/Vol] 23 mmol/L Normal 22-30 [facility] Comment on above: Performed By: #### L [id number] ####Credit Administration Specialist: SIERRA GUERRA ([phone])[facility] ([facility])[address] [place] [address] Creatinine [Mass/Vol] 0.92 mg/dL Normal 0.66-1.25 [facility] Comment on above: Performed By: #### L [id number] ####[employer] Specialist: SIERRA GUERRA ([phone])[facility] ([facility])[address] [place] [address] [place] GLOMERULAR FILTRATION RATE ML/MIN/1.73 SQ M.PREDICTED 88.9 mL/min/1.73m*2 Normal >60.0 [facility] Comment on above: Result Comment: Calc ulation based on the Chronic Kidney Disease Epidemiology Collaboration (CKD-EPI) equation refit without adjustment for race Performed By: #### L [id number] ####[employer] Specialist: SIERRA GUERRA ([phone])[facility] ([facility])[address] [place] [address] [place] Glucose [Mass/Vol] 92 mg/dL Normal 70-100 [facility] Comment on above: Performed By: #### L [id number] ####Credit Administration Specialist: SIERRA GUERRA ([phone])[facility] ([facility])[address] [place] [address] [place] Potassium [Moles/Vol] 4.2 mmol/L Normal 3.5-5.1 [facility] Comment on above: Performed By: #### L [id number] ####Credit [employer] Specialist: SIERRA GUERRA ([phone])[facility] ([facility])[address] [place] [address] Protein [Mass/Vol] 7.9 g/dL Normal 6.3-8.2 [facility] Comment on above: Performed By: #### L [id number] ####Credit Administration Specialist: SIERRA GUERRA ([phone])[facility] ([facility])[address] [place] [address] Sodium [Moles/Vol] 135 mmol/L Normal 135-145 [facility] Comment on above: Performed By: #### L [id number] ####Credit Administration Specialist: SIERRA GUERRA ([phone])[facility] ([facility])[address] [place] [address] Urea nitrogen [Mass/Vol] 20 mg/dL Normal 9-20 [facility] Comment on above: Performed By: #### L [id number] ####Credit Administration Specialist: SIERRA GUERRA ([phone])[facility] [place] [address] Comprehensive metabolic 1998 panelon 06-16-2023 Albumin [Mass/Vol] 3.7 g/dL 3.5 - 5.0 g/dL [facility] ALP [Catalytic activity/Vol] 74 U/L 38 - 126 U/L [facility] ALT [Catalytic activity/Vol] 18 U/L 0 - 49 U/L [facility] Anion gap [Moles/Vol] 5 mmol/L 3 - 13 mmol/L [facility] AST [Catalytic activity/Vol] 29 U/L 15 - 46 U/L [facility] Bilirubin [Mass/Vol] 0.4 mg/dL 0.2 - 1 .3 mg/dL [facility] Calcium [Mass/Vol] 8.5 mg/dL 8.4 - 10. 4 mg/dL [facility] Chloride [Moles/Vol] 107 mmol/L 98 - 10 7 mmol/L [facility] CO2 [Moles/Vol] 23 mmol/L 22 - 30 mmol/L [facility] Creatinine [Mass/Vol] 0.92 mg/dL 0.66 - 1.25 mg/dL [facility] GFR/1.73 sq M.predicted MDRD (S/P/Bld) [Vol rate/Area] 88.9 mL/min/{1.73_m2} - PINF [facility] Comment on above: Calculation based on the Chronic Kidney Disease Epidemiology Collaboration (CKD-EPI) equation refit without adjustment for race Glucose [Mass/Vol] 92 mg/dL 70 - 100 mg/dL [facility] Interpretation and review of laboratory results Normal [facility] Potassium [Moles/Vol] 4.2 mmol/L 3.5 - 5.1 mmol/L [facility] Protein [Mass/Vol] 7.9 g/dL 6.3 - 8.2 g/dL [facility] Sodium [Moles/Vol] 135 mmol/L 135 - 145 mmol/L [facility] Urea nitrogen [Mass/Vol] 20 mg/dL 9 - 20 mg/d L [facility] No Panel Informationon 06-16 Fracnis Ferrer MD 06/16/2023 11:36 PM [facility] [address] [place] [address] ROUTINE EEG REPORT Patient Name: Cory Mueller : 1950 Date of Study: 06/16/2023 Duration Recorded: 25 minutes EEG#: [id number] PSYCHOTHERAPIST COUNSELOR: Rosette Sánchez PROVIDER REQUESTING STUDY: Sierra Hay [...] 5 mg at 06/15/23 2214 sodium chloride ([place]) 0.65 % nasal spray 1 spray 1 spray Each Nostril PRN Matty Bryson DO thiamine (Vitamin B1) 250 mg in sodium chloride 0.9 % 100 mL IVPB 250 mg IntraVENous q24h Bradley Millard MD Stopped at 06/15/23 2244 TECHNICAL ASPECTS: This routine scalp EEG study with video was carried out at [facility]. Scalp electrodes were positioned in person by an electro mechanical technologist, following patient education, according to the 10-20 International system of electrode placement and maintained for integrity and quality of the recording. EEG data with video was recorded continuously and digitally stored. The electro mechanical technologist reviewed all automated detections and manual [...] observed. Francis Ferrer MD, PHD Epilepsy Attending [facility] Progress Noteon 06-16-2023 Progress Note PHYSICAL THERAPY [facility] Name/MRN: Cory Mueller ([id number]) Date: 06/16/2023 PT eval attempted, but pt having continuous EEG in room. Will re-attempt at a later date. Shameka Minor, PT Normal [facility] Progress Note Green slip in place by medical team. Patient is on medical hold and cannot leave AMA. Normal [facility] 25-hydroxyvitamin D3 [Mass/V ol]on 06-15-2023 Interpretation and review of laboratory results Abnormal [facility] Therapy is based on measurement of Total 25-OHD with the following classification levels: Less than 20 ng/mL: Indicative of Vit D deficiency 20-30 ng/mL: Suggests Vit D insufficiency Optimal: Greater than or equal to 30 ng/mL Test performed by [employer] Immunoassay, measuring Total Vitamin D, not individual fractions. [facility] CBC W Auto Differential pane l (Bld)Ordered By: Vance Maritnez on 06-15-2023 Basophils (Bld) [#/Vol] 0.0 10*3/uL 0.0 - 0.2 10*3/uL [facility] Basophils/100 WBC (Bld) 1.0 % 0.0 - 2.0 % [facility] Eosinophils (Bld) [#/Vol] 0.2 10*3/uL 0.0 - 0.5 10*3/uL [facility] Eosinophils/100 WBC (Bld) 5.8 % 1.0 - 6.0 % [facility] Erythrocyte distribution width (RBC) [Ratio] 14.6 % High 11.5 - 14.5 % [facility] Hematocrit (Bld) [Volume fraction] 41.6 % 40.0 - 52.0 % [facility] Hemoglobin (Bld) [Mass/Vol] 14.3 g/dL 13.0 - 18.0 g/dL [facility] Interpretation and review of laboratory results Abnormal [facility] Lymphocytes (Bld) [#/Vol] 1.1 10*3/uL 1.0 - 4.3 10*3/uL [facility] Lymphocytes/100 WBC (Bld) 26.4 % 20.0 - 40.0 % [facility] MCH (RBC) [Entitic mass] 29.5 pg 26.0 - 34.0 pg [facility] MCHC (RBC) [Mass/Vol] 34.4 % 32.0 - 36.0 % [facility] MCV (RBC) [Entitic vol] 85.5 fL 80.0 - 98.0 fL [facility] Monocytes (Bld) [#/Vol] 0.5 10*3/uL 0.0 - 0.8 10*3/uL [facility] Monocytes/100 WBC (Bld) 12.3 % High 2.0 - 10.0 % [facility] Neutrophils (Bld) [#/Vol] 2.2 10*3/uL 1.8 - 7.0 10*3/uL [facility] Neutrophils/100 WBC (Bld) 54.5 % 40.0 - 80.0 % [facility] Nucleated RBC/100 WBC (Bld) [Ratio] 0.1 % [facility] Platelet mean volume (Bld) [Entitic vol] 8.0 fL 7.4 - 12.4 fL [facility] Platelets (Bld) [#/Vol] 190 10*3/uL 140 - 440 10*3/uL [facility] RBC (Bld) [#/Vol] 4.86 10*6/uL 4.40 - 5.9 0 10*6/uL [facility] WBC (Bld) [#/Vol] 4.1 10*3/uL 3.6 - 10.7 10*3/uL [facility] CBC WITH AUTO DIFFERENTIALon 06-15-2023 Basophils (Bld) [#/Vol] 0.0 10*3/uL Normal 0.0-0.2 [facility] Comment on above: Performed By: #### L [id number], SPQ069, [id number] #### Credit Administration Specialist: SIERRA GUERRA ([phone]) [facility] [address] [place] [address] Basophils/100 WBC (Bld) 1.0 % Normal 0.0-2.0 [facility] Comment on above: Performed By: #### L [id number], [id number], VEM810 #### Credit Administration Specialist: SIERRA GUERRA ([phone]) [facility] ([facility]) [address] [place] [address] [place] Eosinophils (Bld) [#/Vol] 0.2 10*3/uL Normal 0.0-0.5 [facility] Comment on above: Performed By: #### L [id number], [id number], [id number] #### Credit Administration Specialist: SIERRA GUERRA ([phone]) [facility] ([facility]) [address] [place] [address] Eosinophils/100 WBC (Bld) 5.8 % Normal 1.0-6.0 [facility] Comment on above: Performed By: #### L [id number], SAY135, DQM527 #### Credit Administration Specialist: SIERRA GUERRA ([phone]) [facility]) [address] [place] [address] Erythrocyte distribution width (RBC) [Ratio] 14.6 % High 11.5-14.5 [facility] Comment on above: Performed By: #### Minda [id number], [id number], [id number] #### Credit Administration Specialist: SIERRA GUERRA ([phone]) [facility] ([facility]) [address] [place] [address] ERYTHROCYTE MEAN CORPUSCULAR HEMOGLOBIN CONCENTRATION (G/DL) BY AUTOMATED 34.4 % Normal 32.0-36.0 [facility] Comment on above: Performed By: #### L [id number], KGT749, LCJ368 #### Credit Administration Specialist: SIERRA GUERRA ([phone]) [facility]) [address] [place] [address] Hematocrit (Bld) [Volume fraction] 41.6 % Normal 40.0-52.0 [facility] Comment on above: Performed By: #### L [id number], YAR033, GMC594 #### Credit Administration Specialist: SIERRA GUERRA ([phone]) [facility]) [address] [place] [address] Hemoglobin (Bld) [Mass/Vol] 14.3 g/dL Normal 13.0-18.0 [facility] Comment on above: Performed By: #### L [id number], [id number], OZZ983 #### Credit Administration Specialist: SIERRA GUERRA ([phone]) [facility] ([facility]) [address] [place] [address] Lymphocytes (Bld) [#/Vol] 1.1 10*3/uL Normal 1.0-4.3 [facility] Comment on above: Performed By: #### Minda [id number], MZG602, RWP839 #### Credit Administration Specialist: SIERRA GUERRA ([phone]) [facility]) [address] [place] [address] Lymphocytes/100 WBC (Bld) 26.4 % Normal 20.0-40.0 [facility] Comment on above: Performed By: #### Minda IC2654, CBV092, AYD383 #### Credit Administration Specialist: SIERRA GUERRA ([phone]) [facility] ([facility]) [address] [place] [address] MCH (RBC) [Entitic mass] 29.5 pg Normal 26.0-34.0 [facility] Comment on above: Performed By: #### Minda XM4454, ZCL529, TDB411 #### Credit Administration Specialist: SIERRA GUERRA ([phone]) [facility] ([facility]) [address] [place] [address] MCV (RBC) [Entitic vol] 85.5 fL Normal 80.0-98.0 [facility] Comment on above: Performed By: #### Minda IL9384, FPC257, YQR629 #### Credit Administration Specialist: SIERRA GUERRA ([phone]) [facility] ([facility]) [address] [place] [address] Monocytes (Bld) [#/Vol] 0.5 10*3/uL Normal 0.0-0.8 [facility] Comment on above: Performed By: #### L [id number], GTJ680, PKV533 #### Credit Administration Specialist: SIERRA GUERRA ([phone]) [facility]) [address] [place] [address] Monocytes/100 WBC (Bld) 12.3 % High 2.0-10.0 [facility] Comment on above: Performed By: #### L LP8300, VFL817, PDV626 #### Credit Administration Specialist: SIERRA GUERRA ([phone]) [facility]) [address] [place] [address] Neutrophils (Bld) [#/Vol] 2.2 10*3/uL Normal 1.8-7.0 [facility] Comment on above: Performed By: #### L PL7044, JGJ618, ZOK647 #### Credit Administration Specialist: SIERRA GUERRA ([phone]) [facility] ([facility]) [address] [place] [address] Neutrophils/100 WBC (Bld) 54.5 % Normal 40.0-80.0 [facility] Comment on above: Performed By: #### L IW5169, NOQ912, HUB130 #### Credit Administration Specialist: SIERRA GUERRA ([phone]) [facility] ([facility]) [address] [place] [address] NRBC (PER 100 WBCS) BY AUTOMATED COUNT 0.1 /100 WBCs Normal 0.0-2.0 [facility] Comment on above: Performed By: #### L [id number], [id number], [id number] #### Credit Administration Specialist: SIERRA GUERRA ([phone]) [facility]) [address] [place] [address] Platelet mean volume (Bld) [Entitic vol] 8.0 fL Normal 7.4-12.4 [facility] Comment on above: Performed By: #### L [id number], [id number], [id number] #### Credit Administration Specialist: SIERRA GUERRA ([phone]) [facility] ([facility]) [address] [place] [address] [place] Platelets (Bld) [#/Vol] 190 10*3/uL Normal 140-440 [facility] Comment on above: Performed By: #### L [id number], [id number], [id number] #### Credit Administration Specialist: SIERRA GUERRA ([phone]) [facility]) [address] [place] [address] RBC (Bld) [#/Vol] 4.86 10*6/uL Normal 4.40-5.90 [facility] Comment on above: Performed By: #### L [id number], [id number], [id number] #### Credit Administration Specialist: SIERRA GUERRA ([phone]) [facility] [address] [place] [address] WBC (Bld) [#/Vol] 4.1 10*3/uL Normal 3.6-10.7 [facility] Comment on above: Performed By: #### L [id number], [id number], HJS200 #### Credit Administration Specialist: SIERRA GUERRA ([phone]) [facility] ([facility]) [address] [place] [address] COMPLETE URINALYSISon 2023 BILIRUBIN, TOTAL PRESENCE IN URINE Negative Normal Negative [facility] Comment on above: Performed By: #### L [id number] ####Credit Administration Specialist: SIERRA GUERRA ([phone])[facility] ([facility])[address] [place] [address] Clarity (U) Clear Normal Clear [facility] Comment on above: Performed By: #### L [id number] ####Credit Administration Specialist: SIERRA GUERRA ([phone])[facility] ([facility])[address] [place] [address] Color (U) Yellow Normal Lt. Yellow [facility] Comment on above: Performed By: #### L [id number] ####Credit Administration Specialist: SIERRA GUERRA ([phone])[facility] ([facility])[address] [place] [address] GLUCOSE (MG/DL) IN URINE Normal Normal Normal (<70 ) [facility] Comment on above: Performed By: #### L [id number] ####Credit Administration Specialist: SIERRA GUERRA ([phone])[facility] ([facility])[address] [place] [address] HEMOGLOBIN PRESENCE IN URINE Negative Normal Negative [facility] Comment on above: Performed By: #### L [id number] ####Credit Administration Specialist: SIERRA GUERRA ([phone])[facility] ([facility])[address] [place] [address] Ketones Ql (U) Negative Normal Negative [facility] Comment on above: Performed By: #### L [id number] ####Credit Administration Specialist: SIERRA GUERRA ([phone])[facility] ([facility])[address] [place] [address] LEUKOCYTE ESTERASE PRESENCE IN URINE BY TEST STRIP Negative Normal Negative [facility] Comment on above: Performed By: #### L [id number] ####Credit Administration Specialist: SIERRA GUERRA ([phone])[facility])[address] [place] [address] NITRITE PRESENCE IN URINE Negative Normal Negative [facility] Comment on above: Performed By: #### L [id number] ####Credit Administration Specialist: SIERRA GUERRA ([phone])[facility] ([facility])[address] [place] [address] pH (U) 5.0 [pH] Normal 5.0-8.0 [facility] Comment on above: Performed By: #### L [id number] ####Credit Administration Specialist: SIERRA GUERRA ([phone])[facility] ([facility])[address] [place] [address] Protein (U) [Mass/Vol] Negative Normal Negative [facility] Comment on above: Performed By: #### L [id number] ####Credit Administration Specialist: SIERRA GUERRA ([phone])[facility] ([facility])[address] [place] [address] Specific gravity (U) [Rel density] 1.020 Normal 1.005-1.030 [facility] Comment on above: Performed By: #### L [id number] ####Credit Administration Specialist: SIERRA GUERRA ([phone])[facility] ([facility])[address] [place] [address] UROBILINOGEN (MG/DL) IN URINE Normal Normal Normal (0-1) [facility] Comment on above: Performed By: #### L [id number] ####Credit Administration Specialist: SIERRA GUERRA ([phone])[facility] ([facility])[address] [place] [address] COMPREHENSIVE METABOLIC PANE Pavel 06-15-2023 Albumin [Mass/Vol] 3.8 g/dL Normal 3.5-5.0 [facility] Comment on above: Performed By: #### L AB67, LAB17 ####Credit Administration Specialist: SIERRA GUERRA ([phone])[facility] ([facility])[address] [place] [address] ALP [Catalytic activity/Vol] 88 U/L Normal 38-126 [facility] Comment on above: Performed By: #### L AB67, LAB17 ####Credit Administration Specialist: SIERRA GUERRA ([phone])[facility] ([facility])[address] [place] [address] ALT [Catalytic activity/Vol] 21 U/L Normal 0-49 [facility] Comment on above: Performed By: #### L AB67, LAB17 ####Credit Administration Specialist: SIERRA GUERRA ([phone])[facility] ([facility])[address] [place] [address] Anion gap [Moles/Vol] 6 mmol/L Normal 3-13 [facility] Comment on above: Performed By: #### L AB67, LAB17 ####Credit Administration Specialist: SIERRA GUERRA ([phone])[facility] ([facility])[address] [place] [address] AST [Catalytic activity/Vol] 37 U/L Normal 15-46 [facility] Comment on above: Performed By: #### L AB67, LAB17 ####Credit Administration Specialist: SIERRA GUERRA ([phone])[facility])[address] [place] [address] Bilirubin [Mass/Vol] 0.5 mg/dL Normal 0.2-1.3 [facility] Comment on above: Performed By: #### L AB67, LAB17 ####Credit Administration Specialist: SIERRA GUERRA ([phone])[facility] ([facility])[address] [place] [address] [place] Calcium [Mass/Vol] 8.7 mg/dL Normal 8.4-10.4 [facility] Comment on above: Performed By: #### L AB67, LAB17 ####Credit Administration Specialist: SIERRA GUERRA ([phone])[facility] ([facility])[address] [place] [address] [place] Chloride [Moles/Vol] 103 mmol/L Normal 98-107 [facility] Comment on above: Performed By: #### Minda RIOS, LAB17 ####Credit Administration Specialist: SIERRA GUERRA ([phone])[facility] ([facility])[address] [place] [address] CO2 [Moles/Vol] 25 mmol/L Normal 22-30 [facility] Comment on above: Performed By: #### Minda RIOS, LAB17 ####Credit Administration Specialist: SIERRA GUERRA ([phone])[facility] ([facility])[address] [place] [address] Creatinine [Mass/Vol] 1.00 mg/dL Normal 0.66-1.25 [facility] Comment on above: Performed By: #### Minda RIOS, LAB17 ####Credit Administration Specialist: SIERRA GUERRA ([phone])[facility] ([facility])[address] [place] [address] [place] GLOMERULAR FILTRATION RATE ML/MIN/1.73 SQ M.PREDICTED 80.5 mL/min/1.73m*2 Normal >60.0 [facility] Comment on above: Result Comment: Calc ulation based on the Chronic Kidney Disease Epidemiology Collaboration (CKD-EPI) equation refit without adjustment for race Performed By: #### L GABRIEL, LAB17 ####Credit Administration Specialist: SIERRA GUERRA ([phone])[facility] ([facility])[address] [place] [address] [place] Glucose [Mass/Vol] 88 mg/dL Normal 70-100 [facility] Comment on above: Performed By: #### Minda RIOS, LAB17 ####Credit Administration Specialist: SIERRA [id number])[facility] ([facility])[address] [place] [address] Potassium [Moles/Vol] 4.1 mmol/L Normal 3.5-5.1 [facility] Comment on above: Performed By: #### L AB67, LAB17 ####Credit Administration Specialist: SIERRA GUERRA ([phone])[facility])[address] [place] [address] Protein [Mass/Vol] 7.9 g/dL Normal 6.3-8.2 [facility] Comment on above: Performed By: #### L AB67, LAB17 ####Credit Administration Specialist: SIERRA GUERRA ([phone])[facility])[address] [place] [address] Sodium [Moles/Vol] 134 mmol/L Low 135-145 [facility] Comment on above: Performed By: #### L AB67, LAB17 ####Credit Administration Specialist: SIERRA GUERRA ([phone])[facility] ([facility])[address] [place] [address] Urea nitrogen [Mass/Vol] 20 mg/dL Normal 9-20 [facility] Comment on above: Performed By: #### L AB67, LAB17 ####Credit Administration Specialist: SIERRA GUERRA ([phone])[facility])[address] [place] [address] Cobalamin (Vitamin B12) [Mas s/Vol]on 06-15-2023 Interpretation and review of laboratory results Normal [facility] Comprehensive metabolic 1998 panelon 06-15-2023 Albumin [Mass/Vol] 3.8 g/dL 3.5 - 5.0 g/dL [facility] ALP [Catalytic activity/Vol] 88 U/L 38 - 126 U/L [facility] ALT [Catalytic activity/Vol] 21 U/L 0 - 49 U/L [facility] Anion gap [Moles/Vol] 6 mmol/L 3 - 13 mmol/L [facility] AST [Catalytic activity/Vol] 37 U/L 15 - 46 U/L [facility] Bilirubin [Mass/Vol] 0.5 mg/dL 0.2 - 1 .3 mg/dL [facility] Calcium [Mass/Vol] 8.7 mg/dL 8.4 - 10. 4 mg/dL [facility] Chloride [Moles/Vol] 103 mmol/L 98 - 10 7 mmol/L [facility] CO2 [Moles/Vol] 25 mmol/L 22 - 30 mmol/L [facility] Creatinine [Mass/Vol] 1.00 mg/dL 0.66 - 1.25 mg/dL [facility] GFR/1.73 sq M.predicted MDRD (S/P/Bld) [Vol rate/Area] 80.5 mL/min/{1.73_m2} - PINF [facility] Comment on above: Calculation based on the Chronic Kidney Disease Epidemiology Collaboration (CKD-EPI) equation refit without adjustment for race Glucose [Mass/Vol] 88 mg/dL 70 - 100 mg/dL [facility] Interpretation and review of laboratory results Abnormal [facility] Potassium [Moles/Vol] 4.1 mmol/L 3.5 - 5.1 mmol/L [facility] Protein [Mass/Vol] 7.9 g/dL 6.3 - 8.2 g/dL [facility] Sodium [Moles/Vol] 134 mmol/L Low 135 - 145 mmol/L [facility] Urea nitrogen [Mass/Vol] 20 mg/dL 9 - 20 mg/d L [facility] Consulton 06-15-2023 Consult Attestation with edits by Nedra White MD at 06/17/2023 8:39 AM ATTENDING ATTESTATION: ATTENDING ATTESTATION: I saw and independently examined Mr. Mueller on 06/15/2023. The case was discussed on rounds with the fellow, Dr. Millard. I agree with the history , examination, and medical decision making as outlined. See my annotations in italics. Please see fellow note for further recommendations. [facility] Inpatient Consult Service Admission Date: 06/13/2023 Admission Status: INPATIENT Chief Complaint: Chief Complaint Patient presents with Altered Mental Status Pt is brought into the ED by EMS. Per EMS the pt was found wandering near the bob [place] [facility]. Pt states that he lives in [place]. Pt states that he remembers getting on the bus this morning. Pt states that he is not sure where he was going when he got on the bus. Pt states that he does not remember much from today. Reason for Appointment Geriatrics consulted for "Episode of confusion and wondering to bob couch, unclear etiology. MMSE 20. Concerns for safety at home". Assessment/Plan Principal Problem: Delirium Active Problems: Acute [...] team. - patient to follow up with [facility] on an OP basis, once at baseline - he prefers to be seen at [facility]. Agree - would recommend to reach out to architectural representative [employer] to corroborate patient's history. Agree. At [...] the hospital so that he can have "money to get anything else". Patient is a poor historian. Patient states [...] fevers, chills, and night sweats. Last BM was. No urgency, frequency, or dysuria. Patient states he wants [employer] to get elected and watches the news all day, but did not know when the election year occurred. Patient states he has been paying his rent through his bank, but does not remember which bank he uses. On chart review: Patient was brought from [facility] by EMS. Patient supposedly was at home watching TV and somehow found himself on the bus and ended up at [facility]. Concern for an amnestic episode. Pleasant and cooperative but vague when pressed for specific details. Thinks that he went to the store looking for help from someone because of his confusion. Fairly nonplussed about admission and does not seem to be anxious about leaving the hospital. Conversation with caregiver: Sister - Gabriela Mueller - [phone] - patient provided this phone number, which has been disconnected. Patient has not spoken to his sister in approximately 5-6 months. Patient denies having any friends in the area - states that he stays at home and watches TV all day. Advance Care Planning Healthcare Power ofAttorney: No Financial Power of Tumblers Supervisor: No Living Will:No Code Status: Full code No Known Allergies Current Facility-Administere d Medications: acetaminophen (Tylenol) tablet 650 mg, 650 mg, Oral, q6h PRN, Kenneth Solo (more content not included)... Normal [facility] ETHYL GLUCURONIDE SCREEN, UR INEon 06-15-2023 ETHYL GLUCURONIDE, URINE Negative Normal Negative [facility] Comment on above: Result Comment: FOX [...] been determined by the clinical laboratories of [facility]. Performed By: #### L [id number], [id number] ####Credit Administration Specialist: SIERRA GUERRA ([phone])[address] HIV1,2 COMBO ANTIGEN-ANTIBOD Y SCREENon 06-15-2023 HIV 1,2 COMBO ANTIGEN/ANTIBODY Non-Reactive Normal Nonreactive [facility] Comment on above: Result Comment: The specimen was non-reactive for HIV-1 and HIV-2 antibodies and p24 antigen using an FDA-cleared 4th generation HIV test. Based on this non-reactive screen result, further reflexive testing was not indicated and was, therefore, not performed. Performed By: #### L [id number], [id number] ####Credit Administration Specialist: SIERRA GUERRA ([phone])[address] Laboratory - Chemistry and C hemistry - challengeOrdered By: Iman Juares on 06-15-2023 Ammonia (P) [Moles/Vol] 19 umol/L 9 - 30 umol/ L [facility] Laboratory - Chemistry and C hemistry - challengeon 06-15-2023 25-hydroxyvitamin D3 [Mass/Vol] 27 ng/mL Low 30 - 100 ng/mL [facility] Cobalamin (Vitamin B12) [Mass/Vol] 575 pg/mL 239 - 931 pg/mL [facility] Laboratory - Drug toxicology Ordered By: Vanda Wei on 06-15-2023 Amphetamines Ql (U) Negative Negative [facility] Benzodiazepines Ql (U) Negative Negative [facility] Cocaine Ql (U) Negative Negative [facility] Ethanol [Mass/Vol] Negative Negative [facility] Methadone Ql (U) Negative Negative [facility] Opiates Ql (U) Negative Negative [facility] MEDICATION ASSISTED TREATMEN T PANELon 06-15-2023 Amphetamines Ql (U) Negative Normal Negative [facility] Comment on above: Performed By: #### L [id number], [id number] ####Credit Administration Specialist: SIERRA GUERRA ([phone])[facility] ([facility])[address] [place] [address] BARBITURATES Negative Normal Negative [facility] Comment on above: Performed By: #### L [id number], [id number] ####Credit Administration Specialist: SIERRA GUERRA ([phone])[facility])[address] [place] [address] Benzodiazepines Ql (U) Negative Normal Negative [facility] Comment on above: Performed By: #### L [id number], [id number] ####Credit Administration Specialist: SIERRA GUERRA ([phone])[facility])[address] [place] [address] BUPRENORPHINE SCREEN Negative Normal Negative [facility] Comment on above: Performed By: #### L [id number], [id number] ####Credit Administration Specialist: SIERRA GUERRA ([phone])[facility])[address] [place] [address] Cocaine Ql (U) Negative Normal Negative [facility] Comment on above: Performed By: #### L [id number], [id number] ####Credit Administration Specialist: SIERRA GUERRA ([phone])[facility])[address] [place] [address] ETHANOL-ETOHO Negative Normal Negative [facility] Comment on above: Result Comment: [...] using non-forensic procedures. Performed By: #### L [id number], [id number] ####Credit Administration Specialist: SIERRA GUERRA ([phone])[facility])[address] [place] [address] FENTANYL Negative Normal Negative [facility] Comment on above: Performed By: #### Minda [id number], [id number] ####Credit Administration Specialist: SIERRA GUERRA ([phone])[facility] ([facility])[address] [place] [address] Methadone Ql (U) Negative Normal Negative [facility] Comment on above: Performed By: #### L [id number], [id number] ####Credit Administration Specialist: SIERRA GUERRA ([phone])[facility] ([facility])[address] [place] [address] Opiates Ql (U) Negative Normal Negative [facility] Comment on above: Performed By: #### L [id number], [id number] ####Credit Administration Specialist: SIERRA GUERRA ([phone])[facility] ([facility])[address] [place] [address] OXYCODONE/OXYMORPHONE Negative Normal Negative [facility] Comment on above: Performed By: #### L [id number], [id number] ####Credit Administration Specialist: SIERRA GUERRA ([phone])[facility] ([facility])[address] [place] [address] PCP Negative Normal Negative [facility] Comment on above: Performed By: #### L [id number], [id number] ####Credit Administration Specialist: SIERRA GUERRA ([phone])[facility] [place] [address] THC-MTTHC Positive Normal Negative [facility] Comment on above: Performed By: #### L [id number], [id number] ####Credit Administration Specialist: SIERRA GUERRA ([phone])[facility] [place] [address] MR Brain WO and W contrast I Von 06-15-2023 Diminished cerebral volume and evidence of chronic white matter small vessel ischemic change without acute intracranial abnormality. Report Dictated on Electronically Signed By: Cristian Deng MD Electronically Signed Date/Time: 06/15/2023 11:05 PM [facility] [employer] SYSTEM Patient Name: CORY MUELLER : 1950 [...] sinuses.. Mastoid air cells: Normal. Orbits: Normal. [facility] [employer] [facility] Cristian Deng MD - 06/15/2023 Patient Name: [...] Electronically Signed Date/Time: 06/15/2023 11:05 PM EST [facility] Radiology Study observation (narrative) [facility] alth MR Brain WO and W contrast I VOrdered By: Cristian Deng on 06-15-2023 [facility] Work Phone: No Panel InformationOrdered By: Vanda Wei on 06-15-2023 BARBITURATES Negative Negative [facility] BUPRENORPHINE SCREEN Negative Negative [facility] FENTANYL Negative Negative [facility] OXYCODONE/OXYMORPHONE Negative Negative [facility] PCP Negative Negative [facility] THC Positive Negative [facility] The expected value for the drugs listed [...] treatment only. Analysis performed using non-forensic procedures. [facility] [employer] No Panel Informationon 06-15 ETHYL GLUCURONIDE, URINE Negative Negative [facility] Ethyl Glucuronide has been screened by Immunoassay [...] been determined by the clinical laboratories of [facility]. [facility] [employer] No Panel InformationOrdered By: Iman Juares on 06-15-2023 Interpretation and review of laboratory results Normal [facility] [employer] Progress Noteon 06-15-2023 Progress Note Nutrition rescreen completed. Patient referred to the Dietitian due to cachexia. Bianca Simmons, DT Normal [facility] [employer] [facility] RPR WITH REFLEX QUANTon 05-21 RPR Non-Reactive Normal Nonreactive [facility] Comment on above: Performed By: #### L [id number], [id number] ####Credit Administration Specialist: SIERRA GUERRA ([phone])[address] Urinalysis complete panel (U )on 06-15-2023 Bilirubin Ql (U) Negative Negative mg/dL [facility] [employer] Clarity (U) Clear Clear [facility] [employer] Color (U) Yellow Lt. Yellow [facility] [employer] Glucose Ql (U) Normal Normal (<70) mg/dL [facility] Hemoglobin Ql (U) Negative Negative mg/dL [facility] Interpretation and review of laboratory results Normal [facility] Ketones (U) [Mass/Vol] Negative Negative mg/d L [facility] Leukocyte esterase Test strip Ql (U) Negative Negative Marianne/uL [facility] Nitrite Ql (U) Negative Negative [facility] th pH (U) 5.0 [pH] 5.0 - 8.0 pH [facility] Protein (U) [Mass/Vol] Negative Negative mg/d L [facility] Specific gravity (U) [Rel density] 1.020 1.005 - 1.030 [facility] Urobilinogen (U) [Mass/Vol] Normal Normal (0-1) mg/dL [facility] [place] [facility]IT[place] B12on 06-15-2023 Cobalamin (Vitamin B12) [Mass/Vol] 575 pg/mL Normal 239-931 [facility] Comment on above: Performed By: #### L AB67, LAB17 ####Credit Administration Specialist: SIERRA GUERRA ([phone])[facility] ([facility])[address] [place] [address] VITAMIN D DEFICIENCY SCREENI NG (VIT D 25)on 06-15-2023 VIT D 25-OH, TOTAL 27 ng/mL Low 30-100 [facility] Comment on above: Result Comment: FXO Rey COMMENTS: Therapy is based on measurement of Total 25-OHD with the following classification levels: Less than 20 ng/mL: Indicative of Vit D deficiency 20-30 ng/mL: Suggests Vit D insufficiency Optimal: Greater than or equal to 30 ng/mL Test performed by [employer] Competitive Immunoassay, measuring Total Vitamin D, not individual fractions. Performed By: #### L [id number] ####Credit Administration Specialist: RANDY BAKER ([phone])[facility] ([facility])[address] [place] [address] AMMONIAon 06-14-2023 Ammonia (P) [Mass/Vol] ug/dL Low 9-30 [facility] Comment on above: Performed By: #### L AB47 ####Credit Administration Specialist: SIERRA GUERRA ([phone])[facility] ([facility])[address] [place] [address] BLOOD GAS, VENOUSon 06-14-19 24 Base excess Calc (BldV) [Moles/Vol] 1.8 mmol/L Normal -3.0-3.0 [facility] Comment on above: Performed By: #### L AB79 ####Credit Administration Specialist: SIERRA GUERRA ([phone])[facility] ([facility] [place] [address] [place] CO2 [Moles/Vol] 28.9 mmol/L High 24.0-28.0 [facility] Comment on above: Performed By: #### L AB79 ####Credit Administration Specialist: SIERRA GUERRA ([phone])[facility] [place] [address] HCO3 (Bld) [Moles/Vol] 27.4 mmol/L High 23.0-27.0 [facility] Comment on above: Performed By: #### L AB79 ####Credit Administration Specialist: SIERRA GUERRA ([phone])[facility] ([facility])[address] [place] [address] Hemoglobin (Bld) [Mass/Vol] 15.3 g/dL Normal Screen Only [facility] Comment on above: Performed By: #### L AB79 ####Credit Administration Specialist: SIERRA GUERRA ([phone])[facility] ([facility])[address] [place] [address] OXYGEN (MM HG) IN VENOUS BLOOD 35.4 mm Hg Normal 30.0-50.0 [facility] Comment on above: Performed By: #### L AB79 ####Credit Administration Specialist: SIERRA GUERRA ([phone])[facility])[address] [place] [address] OXYGEN SATURATION (%) IN VENOUS BLOOD 61.6 % Normal 60.0-80.0 [facility] Comment on above: Performed By: #### L AB79 ####Credit Administration Specialist: SIERRA GUERRA ([phone])[facility])[address] [place] [address] [place] PCO2, SANTY 46.6 mm Hg Normal 40.0-55.0 [facility] Comment on above: Performed By: #### L AB79 ####Credit Administration Specialist: SIERRA GUERRA ([phone])[facility] ([facility])[address] [place] [address] [place] PH VENOUS 7.388 Normal 7.330-7.430 [facility] Comment on above: Performed By: #### L AB79 ####Credit Administration Specialist: SIERRA GUERRA ([phone])[facility] ([facility])[address] [place] [address] SOURCE OF OXYGEN Room Air Normal [facility] Comment on above: Result Comment: FOX Rey COMMENTS: Interpret with caution, pO2 value falsely increased due to vacuum in tube. For accurate results, please draw on a syringe. Performed By: #### L AB79 ####Credit Administration Specialist: SIERRA HUBBARDShadi ([phone])[facility] ([facility])[address] [place] [address] CARECOORDon 06-14-2023 [facility] Care Managment Initial Assessment Date: 06/14/2023 Patient Name: Cory Mueller : 1950 Patient Information Source of Information: Patient Cognition/Language: WFL - Within Functional Limits, Other (Comment) (? 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 Patient did state that he has a sister Gabriela in [place] and another sister in [place]) Confirmation of Payer with patient/family: Yes Payer Name: [facility] Medicare/[facility]- medicaid only [place]: No Confirmation of Primary Care Physician: No [...] with transport home. Stefanie Lipscomb RN Normal [facility] CBC W Auto Differential pane l (Bld)Ordered By: Nuria Soni on 06-14-2023 Basophils (Bld) [#/Vol] 0.1 10*3/uL 0.0 - 0.2 10*3/uL [facility] Basophils/100 WBC (Bld) 2.4 % High 0.0 - 2.0 % [facility] Eosinophils (Bld) [#/Vol] 0.2 10*3/uL 0.0 - 0.5 10*3/uL [facility] Eosinophils/100 WBC (Bld) 3.6 % 1.0 - 6.0 % [facility] Erythrocyte distribution width (RBC) [Ratio] 14.6 % High 11.5 - 14.5 % [facility] Hematocrit (Bld) [Volume fraction] 41.5 % 40.0 - 52.0 % [facility] Hemoglobin (Bld) [Mass/Vol] 14.7 g/dL 13.0 - 18.0 g/dL [facility] Interpretation and review of laboratory results Abnormal [facility] Lymphocytes (Bld) [#/Vol] 1.2 10*3/uL 1.0 - 4.3 10*3/uL [facility] Lymphocytes/100 WBC (Bld) 25.7 % 20.0 - 40.0 % [facility] MCH (RBC) [Entitic mass] 29.9 pg 26.0 - 34.0 pg [facility] MCHC (RBC) [Mass/Vol] 35.4 % 32.0 - 36.0 % [facility] MCV (RBC) [Entitic vol] 84.2 fL 80.0 - 98.0 fL [facility] Monocytes (Bld) [#/Vol] 0.6 10*3/uL 0.0 - 0.8 10*3/uL [facility] Monocytes/100 WBC (Bld) 13.6 % High 2.0 - 10.0 % [facility] Neutrophils (Bld) [#/Vol] 2.6 10*3/uL 1.8 - 7.0 10*3/uL [facility] Neutrophils/100 WBC (Bld) 54.7 % 40.0 - 80.0 % [facility] Nucleated RBC/100 WBC (Bld) [Ratio] 0.0 % [facility] Platelet mean volume (Bld) [Entitic vol] 8.1 fL 7.4 - 12.4 fL [facility] Platelets (Bld) [#/Vol] 198 10*3/uL 140 - 440 10*3/uL [facility] RBC (Bld) [#/Vol] 4.93 10*6/uL 4.40 - 5.9 0 10*6/uL [facility] WBC (Bld) [#/Vol] 4.8 10*3/uL 3.6 - 10.7 10*3/uL [facility] CBC WITH AUTO DIFFERENTIALon 06-14-2023 Basophils (Bld) [#/Vol] 0.1 10*3/uL Normal 0.0-0.2 [facility] Comment on above: Performed By: #### Minda [id number], AAD855, RIV055 #### Credit Administration Specialist: SIERRA GUERRA ([phone]) [facility]) [address] [place] [address] Basophils/100 WBC (Bld) 2.4 % High 0.0-2.0 S [facility] Comment on above: Performed By: #### L [id number], OEF943, GRH201 #### Credit Administration Specialist: SIERRA GUERRA ([phone]) [facility] [address] [place] [address] Eosinophils (Bld) [#/Vol] 0.2 10*3/uL Normal 0.0-0.5 [facility] Comment on above: Performed By: #### L IS4787, RED043, HGP341 #### Credit Administration Specialist: SIERRA GUERRA ([phone]) [facility] ([facility]) [address] [place] [address] Eosinophils/100 WBC (Bld) 3.6 % Normal 1.0-6.0 [facility] Comment on above: Performed By: #### L [id number], KDW375, JQU658 #### Credit Administration Specialist: SIERRA GUERRA ([phone]) [facility]) [address] [place] [address] Erythrocyte distribution width (RBC) [Ratio] 14.6 % High 11.5-14.5 [facility] Comment on above: Performed By: #### L [id number], FYP355, NQM937 #### Credit Administration Specialist: SIERRA GUERRA ([phone]) [facility]) [address] [place] [address] ERYTHROCYTE MEAN CORPUSCULAR HEMOGLOBIN CONCENTRATION (G/DL) BY AUTOMATED 35.4 % Normal 32.0-36.0 [facility] Comment on above: Performed By: #### L [id number], IGK098, VEO484 #### Credit Administration Specialist: SIERRA GUERRA ([phone]) [facility]) [address] [place] [address] Hematocrit (Bld) [Volume fraction] 41.5 % Normal 40.0-52.0 [facility] Comment on above: Performed By: #### L RA2322, OUB307, ZJS441 #### Credit Administration Specialist: SIERRA GUERRA ([phone]) [facility]) [address] [place] [address] Hemoglobin (Bld) [Mass/Vol] 14.7 g/dL Normal 13.0-18.0 [facility] Comment on above: Performed By: #### L ZM6557, DRK317, PWB461 #### Credit Administration Specialist: SIERRA GUERRA ([phone]) [facility]) [address] [place] [address] Lymphocytes (Bld) [#/Vol] 1.2 10*3/uL Normal 1.0-4.3 [facility] Comment on above: Performed By: #### L FT4219, ONJ685, RAL756 #### Credit Administration Specialist: SIERRA GUERRA ([phone]) [facility]) [address] [place] [address] Lymphocytes/100 WBC (Bld) 25.7 % Normal 20.0-40.0 [facility] Comment on above: Performed By: #### Minda GN8369, NVH691, VGG531 #### Credit Administration Specialist: SIERRA GUERRA ([phone]) [facility]) [address] [place] [address] MCH (RBC) [Entitic mass] 29.9 pg Normal 26.0-34.0 [facility] Comment on above: Performed By: #### Minda WA7187, EPH567, CJH514 #### Credit Administration Specialist: SIERRA GUERRA ([phone]) [facility]) [address] [place] [address] MCV (RBC) [Entitic vol] 84.2 fL Normal 80.0-98.0 S [facility] Comment on above: Performed By: #### Minda AX3917, HBJ498, LVS249 #### Credit Administration Specialist: SIERRA GUERRA ([phone]) [facility]) [address] [place] [address] Monocytes (Bld) [#/Vol] 0.6 10*3/uL Normal 0.0-0.8 [facility] Comment on above: Performed By: #### L SG1602, FWP439, AWJ400 #### Credit Administration Specialist: SIERRA GUERRA ([phone]) [facility]) [address] [place] [address] Monocytes/100 WBC (Bld) 13.6 % High 2.0-10.0 [facility] Comment on above: Performed By: #### L RM6768, RWP739, LZY342 #### Credit Administration Specialist: SIERRA GUERRA ([phone]) [facility]) [address] [place] [address] Neutrophils (Bld) [#/Vol] 2.6 10*3/uL Normal 1.8-7.0 [facility] Comment on above: Performed By: #### L WB6508, NZQ658, MEZ179 #### Credit Administration Specialist: SIERRA GUERRA ([phone]) [facility] ([facility]) [address] [place] [address] Neutrophils/100 WBC (Bld) 54.7 % Normal 40.0-80.0 [facility] Comment on above: Performed By: #### L OO4397, SLL449, TGJ332 #### Credit Administration Specialist: SIERRA GUERRA ([phone]) [facility] ([facility]) [address] [place] [address] NRBC (PER 100 WBCS) BY AUTOMATED COUNT 0.0 /100 WBCs Normal 0.0-2.0 [facility] Comment on above: Performed By: #### Minda MQ3024, LDC599, ZQH611 #### Credit Administration Specialist: SIERRA GUERRA ([phone]) [facility] ([facility]) [address] [place] [address] Platelet mean volume (Bld) [Entitic vol] 8.1 fL Normal 7.4-12.4 [facility] Comment on above: Performed By: #### L AB1324, DRC498, HFD872 #### Credit Administration Specialist: SIERRA GUERRA ([phone]) [facility] ([facility]) [address] [place] [address] Platelets (Bld) [#/Vol] 198 10*3/uL Normal 140-440 [facility] Comment on above: Performed By: #### L KR8295, SSH888, CJF180 #### Credit Administration Specialist: SIERRA GUERRA ([phone]) [facility]) [address] [place] [address] RBC (Bld) [#/Vol] 4.93 10*6/uL Normal 4.40-5.90 [facility] Comment on above: Performed By: #### L SE8136, QAW834, ZVH837 #### Credit Administration Specialist: SIERRA GUERRA ([phone]) [facility]) [address] [place] [address] WBC (Bld) [#/Vol] 4.8 10*3/uL Normal 3.6-10.7 [facility] Comment on above: Performed By: #### L NM8763, MNE433, VDR086 #### Credit Administration Specialist: SIERRA GUERRA ([phone]) [facility] ([facility]) [address] [place] [address] Basophils (Bld) [#/Vol] 0.0 10*3/uL Normal 0.0-0.2 [facility] Comment on above: Performed By: #### L [id number] ####Credit Administration Specialist: SIERRA GUERRA ([phone])[facility])[address] [place] [address] Basophils/100 WBC (Bld) 0.6 % Normal 0.0-2.0 [facility] Comment on above: Performed By: #### L [id number] ####Credit Administration Specialist: SIERRA GUERRA ([phone])[facility])[address] [place] [address] Eosinophils (Bld) [#/Vol] 0.1 10*3/uL Normal 0.0-0.5 [facility] Comment on above: Performed By: #### L [id number] ####Credit Administration Specialist: SIERRA GUERRA ([phone])[facility])[address] [place] [address] Eosinophils/100 WBC (Bld) 1.6 % Normal 1.0-6.0 [facility] Comment on above: Performed By: #### L [id number] ####Credit Administration Specialist: SIERRA GUERRA ([phone])[facility])[address] [place] [address] Erythrocyte distribution width (RBC) [Ratio] 14.5 % Normal 11.5-14.5 [facility] Comment on above: Performed By: #### L [id number] ####Credit Administration Specialist: SIERRA GUERRA ([phone])[facility])[address] [place] [address] ERYTHROCYTE MEAN CORPUSCULAR HEMOGLOBIN CONCENTRATION (G/DL) BY AUTOMATED 34.8 % Normal 32.0-36.0 [facility] Comment on above: Performed By: #### L [id number] ####Credit Administration Specialist: SIERRA GUERRA ([phone])[facility])[address] [place] [address] Hematocrit (Bld) [Volume fraction] 41.9 % Normal 40.0-52.0 [facility] Comment on above: Performed By: #### L HE8927 ####Credit Administration Specialist: SIERRA GUERRA ([phone])[facility])[address] [place] [address] Hemoglobin (Bld) [Mass/Vol] 14.6 g/dL Normal 13.0-18.0 [facility] Comment on above: Performed By: #### L [id number] ####Credit Administration Specialist: SIERRA GUERRA ([phone])[facility])[address] [place] [address] Lymphocytes (Bld) [#/Vol] 0.9 10*3/uL Low 1.0-4.3 [facility] Comment on above: Performed By: #### L [id number] ####Credit Administration Specialist: SIERRA GUERRA ([phone])[facility])[address] [place] [address] Lymphocytes/100 WBC (Bld) 16.5 % Low 20.0-40.0 [facility] Comment on above: Performed By: #### L [id number] ####Credit Administration Specialist: SIERRA GUERRA ([phone])[facility])[address] [place] [address] MCH (RBC) [Entitic mass] 29.1 pg Normal 26.0-34.0 [facility] Comment on above: Performed By: #### L [id number] ####Credit Administration Specialist: SIERRA GUERRA ([phone])[facility] ([facility])[address] [place] [address] MCV (RBC) [Entitic vol] 83.5 fL Normal 80.0-98.0 S [facility] Comment on above: Performed By: #### L [id number] ####Credit Administration Specialist: SIERRA GUERRA ([phone])[facility] ([facility])[address] [place] [address] [place] Monocytes (Bld) [#/Vol] 0.7 10*3/uL Normal 0.0-0.8 [facility] Comment on above: Performed By: #### L [id number] ####Credit Administration Specialist: SIERRA GUERRA ([phone])[facility] ([facility])[address] [place] [address] Monocytes/100 WBC (Bld) 12.0 % High 2.0-10.0 [facility] Comment on above: Performed By: #### L [id number] ####Credit Administration Specialist: SIERRA GUERRA ([phone])[facility] ([facility])[address] [place] [address] [place] Neutrophils (Bld) [#/Vol] 4.0 10*3/uL Normal 1.8-7.0 [facility] Comment on above: Performed By: #### L [id number] ####Credit Administration Specialist: SIERRA GUERRA ([phone])[facility] ([facility])[address] [place] [address] [place] Neutrophils/100 WBC (Bld) 69.3 % Normal 40.0-80.0 [facility] Comment on above: Performed By: #### L [id number] ####Credit Administration Specialist: SIERRA GUERRA ([phone])[facility])[address] [place] [address] [place] NRBC (PER 100 WBCS) BY AUTOMATED COUNT 0.1 /100 WBCs Normal 0.0-2.0 [facility] Comment on above: Performed By: #### L [id number] ####Credit Administration Specialist: SIERRA GUERRA ([phone])[facility] ([facility])[address] [place] [address] Platelet mean volume (Bld) [Entitic vol] 8.4 fL Normal 7.4-12.4 [facility] Comment on above: Performed By: #### L [id number] ####Credit Administration Specialist: SIERRA GUERRA ([phone])[facility])[address] [place] [address] Platelets (Bld) [#/Vol] 198 10*3/uL Normal 140-440 [facility] Comment on above: Performed By: #### L [id number] ####Credit Administration Specialist: SIERRA GUERRA ([phone])[facility] ([facility])[address] [place] [address] RBC (Bld) [#/Vol] 5.01 10*6/uL Normal 4.40-5.90 [facility] Comment on above: Performed By: #### L [id number] ####Credit Administration Specialist: SIERRA GUERRA ([phone])[facility] ([facility])[address] [place] [address] WBC (Bld) [#/Vol] 5.7 10*3/uL Normal 3.6-10.7 [facility] Comment on above: Performed By: #### L [id number] ####Credit Administration Specialist: SIERRA GUERRA ([phone])[facility])[address] [place] [address] COMPREHENSIVE METABOLIC PANE Pavel 06-14-2023 Albumin [Mass/Vol] 4.5 g/dL Normal 3.5-5.0 [facility] Comment on above: Performed By: #### L AB747, LAB17 ####Credit Administration Specialist: SIERRA GUERRA ([phone])[facility])[address] [place] [address] ALP [Catalytic activity/Vol] 91 U/L Normal 38-126 [facility] Comment on above: Performed By: #### L AB747, LAB17 ####Credit Administration Specialist: SIERRA GUERRA ([phone])[facility])[address] [place] [address] [place] ALT [Catalytic activity/Vol] 27 U/L Normal 0-49 [facility] Comment on above: Performed By: #### L AB747, LAB17 ####Credit Administration Specialist: SIERRA GUERRA ([phone])[facility] ([facility])[address] [place] [address] Anion gap [Moles/Vol] 10 mmol/L Normal 3-13 [facility] Comment on above: Performed By: #### L KATHARINE, LAB17 ####Credit Administration Specialist: SIERRA GUERRA ([phone])[facility] ([facility])[address] [place] [address] AST [Catalytic activity/Vol] 42 U/L Normal 15-46 [facility] Comment on above: Performed By: #### Minda ALCANTAR, LAB17 ####Credit Administration Specialist: SIERRA GUERRA ([phone])[facility] ([facility])[address] [place] [address] Bilirubin [Mass/Vol] 1.0 mg/dL Normal 0.2-1.3 [facility] Comment on above: Performed By: #### Minda ALCANTAR, LAB17 ####Credit Administration Specialist: SIERRA GUERRA ([phone])[facility] ([facility])[address] [place] [address] [place] Calcium [Mass/Vol] 9.1 mg/dL Normal 8.4-10.4 [facility] Comment on above: Performed By: #### L KATHARINE, LAB17 ####Credit Administration Specialist: SIERRA GUERRA ([phone])[facility] ([facility])[address] [place] [address] [place] Chloride [Moles/Vol] 101 mmol/L Normal 98-107 [facility] Comment on above: Performed By: #### L AB747, LAB17 ####Credit Administration Specialist: SIERRA GUERRA ([phone])[facility] ([facility])[address] [place] [address] [place] CO2 [Moles/Vol] 23 mmol/L Normal 22-30 [facility] Comment on above: Performed By: #### L 747, LAB17 ####Credit Administration Specialist: SIERRA GUERRA ([phone])[facility])[address] [place] [address] Creatinine [Mass/Vol] 1.10 mg/dL Normal 0.66-1.25 [facility] Comment on above: Performed By: #### Minda DUDLEY74Oswald, LAB17 ####Credit Administration Specialist: SIERRA GUERRA ([phone])[facility])[address] [place] [address] GLOMERULAR FILTRATION RATE ML/MIN/1.73 SQ M.PREDICTED 71.8 mL/min/1.73m*2 Normal >60.0 [facility] Comment on above: Result Comment: Calc ulation based on the Chronic Kidney Disease Epidemiology Collaboration (CKD-EPI) equation refit without adjustment for race Performed By: #### Minda ALCANTAR, LAB17 ####Credit Administration Specialist: SIERRA GUERRA ([phone])[facility])[address] [place] [address] Glucose [Mass/Vol] 84 mg/dL Normal 70-100 [facility] Comment on above: Performed By: #### Minda DUDLEY74Oswald, LAB17 ####Credit Administration Specialist: SIERRA GUERRA ([phone])[facility])[address] [place] [address] Potassium [Moles/Vol] 4.1 mmol/L Normal 3.5-5.1 [facility] Comment on above: Performed By: #### L 747, LAB17 ####Credit Administration Specialist: SIERRA GUERRA ([phone])[facility])[address] [place] [address] Protein [Mass/Vol] 9.0 g/dL High 6.3-8.2 [facility] Comment on above: Performed By: #### L AB747, LAB17 ####Credit Administration Specialist: SIERRA GUERRA ([phone])[facility])[address] [place] [address] [place] Sodium [Moles/Vol] 135 mmol/L Normal 135-145 [facility] Comment on above: Performed By: #### L AB747, LAB17 ####Credit Administration Specialist: SIERRA GUERRA ([phone])[facility] ([facility])[address] [place] [address] [place] nitrogen [Mass/Vol] 21 mg/dL High 9-20 [facility] Comment on above: Performed By: #### Minda [id number], LAB17 ####Credit Administration Specialist: SIERRA GUERRA ([phone])[facility] ([facility])[address] [place] [address] Albumin [Mass/Vol] 4.3 g/dL Normal 3.5-5.0 [facility] Comment on above: Performed By: #### L [id number], [id number], WBA543 #### Credit Administration Specialist: SIERRA GUERRA ([phone]) [facility] ([facility]) [address] [place] [address] ALP [Catalytic activity/Vol] 89 U/L Normal 38-126 [facility] Comment on above: Performed By: #### L [id number], [id number], KPW818 #### Credit Administration Specialist: SIERRA GUERRA ([phone]) [facility] ([facility]) [address] [place] [address] [place] ALT [Catalytic activity/Vol] 27 U/L Normal 0-49 [facility] Comment on above: Performed By: #### L [id number], VPT056, CQX470 #### Credit Administration Specialist: SIERRA GUERRA ([phone]) [facility] ([facility] [address] [place] [address] [place] Anion gap [Moles/Vol] 9 mmol/L Normal 3-13 [facility] Comment on above: Performed By: #### L [id number], NZW250, GPN399 #### Credit Administration Specialist: SIERRA GUERRA ([phone]) [facility] ([facility]) [address] [place] [address] [place] AST [Catalytic activity/Vol] 37 U/L Normal 15-46 [facility] Comment on above: Performed By: #### L [id number], PLM052, PIV149 #### Credit Administration Specialist: SIERRA GUERRA ([phone]) [facility] ([facility] [address] [place] [address] Bilirubin [Mass/Vol] 0.8 mg/dL Normal 0.2-1.3 [facility] Comment on above: Performed By: #### L [id number], GWT880, VBH318 #### Credit Administration Specialist: SIERRA GUERRA ([phone]) [facility] ([facility] [address] [place] [address] Calcium [Mass/Vol] 9.1 mg/dL Normal 8.4-10.4 [facility] Comment on above: Performed By: #### L [id number], BWR887, NEX163 #### Credit Administration Specialist: SIERRA GUERRA ([phone]) [facility] ([facility] [address] [place] [address] [place] Chloride [Moles/Vol] 99 mmol/L Normal 98-107 [facility] Comment on above: Performed By: #### L [id number], KGG923, WOY550 #### Credit Administration Specialist: SIERRA GUERRA ([phone]) [facility] ([facility]) [address] [place] [address] [place] CO2 [Moles/Vol] 27 mmol/L Normal 22-30 [facility] Comment on above: Performed By: #### L [id number], SCB524, KSK134 #### Credit Administration Specialist: SIERRA GUERRA ([phone]) [facility] ([facility]) [address] [place] [address] [place] Creatinine [Mass/Vol] 1.25 mg/dL Normal 0.66-1.25 [facility] Comment on above: Performed By: #### L [id number], UES180, KMW116 #### Credit Administration Specialist: SIERRA GUERRA ([phone]) [facility] ([facility] [address] [place] [address] [place] GLOMERULAR FILTRATION RATE ML/MIN/1.73 SQ M.PREDICTED 61.6 mL/min/1.73m*2 Normal >60.0 [facility] Comment on above: Result Comment: Calc ulation based on the Chronic Kidney Disease Epidemiology Collaboration (CKD-EPI) equation refit without adjustment for race Performed By: #### L [id number], IFQ405, KTX591 #### Credit Administration Specialist: SIERRA GUERRA ([phone]) [facility] ([facility] [address] [place] [address] [place] Glucose [Mass/Vol] 90 mg/dL Normal 70-100 [facility] Comment on above: Performed By: #### L [id number], AIN025, QBN108 #### Credit Administration Specialist: SIERRA GUERRA ([phone]) [facility]) [address] [place] [address] Potassium [Moles/Vol] 4.3 mmol/L Normal 3.5-5.1 [facility] Comment on above: Performed By: #### L [id number], LHP986, SVH729 #### Credit Administration Specialist: SIERRA GUERRA ([phone]) [facility] ([facility]) [address] [place] [address] [place] Protein [Mass/Vol] 8.4 g/dL High 6.3-8.2 [facility] Comment on above: Performed By: #### L EK6234, MER102, YAD553 #### Credit Administration Specialist: SIERRA GUERRA ([phone]) [facility] ([facility]) [address] [place] [address] [place] Sodium [Moles/Vol] 135 mmol/L Normal 135-145 [facility] Comment on above: Performed By: #### L [id number], OKA489, ITS565 #### Credit Administration Specialist: SIERRA GUERRA ([phone]) [facility]) [address] [place] [address] [place] Urea nitrogen [Mass/Vol] 21 mg/dL High 9-20 [facility] Comment on above: Performed By: #### L [id number], XRM334, DKB383 #### Credit Administration Specialist: SIERRA GUERRA ([phone]) [facility] ([facility]) [address] [place] [address] CT HEAD WO IV CONTRASTon CT HEAD WO IV CONTRAST Patient Name: CORY ALVARADO : 1950 [id number] Exam Date/Time: 06/13/2023 23:50 Procedure: CT HEAD [...] Signed Date/Time: 06/13/2023 11:51 PM EST Normal [facility] Comprehensive metabolic 1998 panelon 06-14-2023 Albumin [Mass/Vol] 4.5 g/dL 3.5 - 5.0 g/dL [facility] ALP [Catalytic activity/Vol] 91 U/L 38 - 126 U/L [facility] ALT [Catalytic activity/Vol] 27 U/L 0 - 49 U/L [facility] Anion gap [Moles/Vol] 10 mmol/L 3 - 13 mmol/L [facility] AST [Catalytic activity/Vol] 42 U/L 15 - 46 U/L [facility] Bilirubin [Mass/Vol] 1.0 mg/dL 0.2 - 1 .3 mg/dL [facility] Calcium [Mass/Vol] 9.1 mg/dL 8.4 - 10. 4 mg/dL [facility] Chloride [Moles/Vol] 101 mmol/L 98 - 10 7 mmol/L [facility] CO2 [Moles/Vol] 23 mmol/L 22 - 30 mmol/L [facility] Creatinine [Mass/Vol] 1.10 mg/dL 0.66 - 1.25 mg/dL [facility] GFR/1.73 sq M.predicted MDRD (S/P/Bld) [Vol rate/Area] 71.8 mL/min/{1.73_m2} - PINF [facility] Comment on above: Calculation based on the Chronic Kidney Disease Epidemiology Collaboration (CKD-EPI) equation refit without adjustment for race Glucose [Mass/Vol] 84 mg/dL 70 - 100 mg/dL [facility] Interpretation and review of laboratory results Abnormal [facility] Potassium [Moles/Vol] 4.1 mmol/L 3.5 - 5.1 mmol/L [facility] Protein [Mass/Vol] 9.0 g/dL High 6.3 - 8.2 g/dL [facility] Sodium [Moles/Vol] 135 mmol/L 135 - 145 mmol/L [facility] Urea nitrogen [Mass/Vol] 21 mg/dL High 9 - 20 mg/d L [facility] ED Nursing Noteon 06-14-2023 ED Nursing Note Pt sleeping, audible snoring noted. Equal and bilateral chest rise Ze Lópezbroderick 06/14/23 0050 Normal [facility] ED Nursing Note Pt states that at this time he does not have to urinate. Will attempt to get the urine sample at a later time Jessy Dewitt, EMT 06/13/23 2311 Normal [facility] ETHANOLon 06-14-2023 ETHANOL IN SER/PLAS <0.010 Normal 0.000-0.010 [facility] Comment on above: Result Comment: FOX Rey COMMENTS: NOTE: This result is for medical treatment only. Analysis performed using non-forensic procedures. Performed By: #### L [id number], EVU465, VKR372 #### Credit Administration Specialist: SIERRA GUERRA ([phone]) [facility] [address] [place] [address] FREE T4on 06-14-2023 Free T4 [Mass/Vol] 1.25 ng/dL Normal 0.78-2.19 [facility] Comment on above: Performed By: #### L [id number], DUZ879, FUK979 #### Credit Administration Specialist: SIERRA GUERRA ([phone]) [facility] ([facility]) [address] [place] [address] LACTIC ACID WITH REFLEXon Lactate [Moles/Vol] 1.1 mmol/L Normal 0.7-2.0 [facility] Comment on above: Performed By: #### L [id number] ####Credit Administration Specialist: SIERRA GUERRA ([phone])[facility] ([facility])[address] [place] [address] Laboratory - Chemistry and C hemistry - challengeon 06-14-2023 Troponin I.cardiac [Mass/Vol] 0.019 ng/mL NINF - 0.034 ng/mL [facility] TSH Qn 1.317 m[IU]/L [facility] Healt h No Panel Informationon 06-14 Impression: No radiographic evidence of radiopaque orbital foreign body. Report Dictated on Electronically Signed By: Mike Tariq MD Electronically Signed Date/Time: 06/14/2023 1:31 PM EST [facility] Patient Name: CORY MUELLER : 1950 [...] pneumatized. No gross osseous abnormality is noted. [id number] cervical spondylosis. Patient is edentulous. [facility] Mike Tariq MD - 06/14/2023 Patient Name: [...] pneumatized. No gross osseous abnormality is noted. [id number] cervical spondylosis. Patient is edentulous. IMPRESSION: Impression: No radiographic evidence of radiopaque orbital foreign body. Report Dictated on Electronically Signed By: Mike Tariq MD Electronically Signed Date/Time: 06/14/2023 1:31 PM EST [facility] Radiology Study observation (narrative) [facility]th No Panel InformationOrdered By: Mike Tariq on 06-14-2023 [facility] Work Phone: Nursing Noteon 06-14-2023 Nursing Note [...] and does not recall doing so. Normal [facility] PROTHROMBIN TIMEon INR Coag (PPP) [Relative time] 1.0 {INR} Normal 0.9-1.1 [facility] Comment on above: Result Comment: Emigdio [...] Myocardial Infarction Performed By: #### L [id number] ####Credit Administration Specialist: SIERRA GUERRA ([phone])[facility] ([address] PT Coag (PPP) [Time] 10.4 s Normal 9.0-12.0 [facility] Comment on above: Performed By: #### L [id number] ####Credit Administration Specialist: SIERRA GUERRA ([phone])[facility] ([facility] [place] [address] Progress Noteon 06-14-2023 Progress Note [facility] Inpatient Consult Service Admission Date: 06/13/2023 Consult Date: 06/14/2023 Consult reason: Episode of confusion and wondering to bob couch, unclear etiology. MMSE 20. Concerns for safety at home Geriatric consult acknowledged. Please contact covering physician via Secure Chat with urgent questions or concerns. Consult will be completed on next day. Nedra White MD 06/14/2023 2:55 PM Normal [facility] Progress Note Pt may not be aware Normal [facility] THYROID STIMULATING HORMONEo n 06-14-2023 THYROID STIMULATING HORMONE 1.317 uIU/mL Normal 0.465-4.680 [facility] Comment on above: Performed By: #### L [id number], KRF117, KDZ322 #### Credit Administration Specialist: SIERRA GUERRA ([phone]) [facility] ([facility]) [address] [place] [address] TROPONIN Ion 06-14-2023 Troponin I.cardiac [Mass/Vol] 0.019 ng/mL Normal <0.034 [facility] Comment on above: Result Comment: FOX Rey COMMENTS: Patients with high levels of Biotin oral intake (ie >5 mg/day) may have falsely decreased Troponin levels. Performed By: #### L [id number], LAB17 ####Credit Administration Specialist: SIERRA GUERRA ([phone])[facility] ([facility])[address] [place] [address] TROPONIN, WITH SERIAL REFLEX on 06-14-2023 Troponin I.cardiac [Mass/Vol] 0.019 ng/mL Normal <0.034 [facility] Comment on above: Result Comment: FOX Rey COMMENTS: Patients with high levels of Biotin oral intake (ie >5 mg/day) may have falsely decreased Troponin levels. Performed By: #### L [id number], FKI761, NSE029 #### Credit Administration Specialist: SIERRA GUERRA ([phone]) [facility] ([facility]) [address] [place] [address] TSH Qnon 06-14-2023 Interpretation and review of laboratory results Normal [facility] Troponin I.cardiac [Mass/Vol ]on 06-14-2023 Interpretation and review of laboratory results Normal [facility] Patients with high levels of Biotin oral intake (ie >5 mg/day) may have falsely decreased Troponin levels. [facility] XR ABDOMEN 1 VIEWon 06-14-19 24 XR [...] Signed Date/Time: 06/14/2023 4:19 PM EST Normal [facility] XR Abdomen Single viewon No metallic foreign body or electronic device. Gas-filled nondilated colon. Paucity of small bowel gas. No gas-filled dilated loops of bowel. Pelvic limits. Degenerative changes of the lumbosacral junction. Report Dictated on Electronically Signed By: Derick Tai MD Electronically Signed Date/Time: 06/14/2023 4:19 PM [facility] [employer] [facility] Patient Name: CORY MUELLER : 1950 Exam Date/Time: 06/14/2023 13:25 Procedure: XR ABDOMEN 1 VIEW Ordering Provider: HAY AMY Reason For Exam: mri clearance ABDOMEN, 1 VIEW. CLINICAL INFORMATION: MRI clearance TECHNIQUE: Supine abdomen, 2 image(s) COMPARISON: CT abdomen/pelvis 08/17/2009 RESULT: Impression. [facility] Derick Tai MD - 06/14/2023 [...] Electronically Signed Date/Time: 06/14/2023 4:19 PM EST [facility] Radiology Study observation (narrative) [facility] XR Abdomen Single viewOrdere d By: Derick Tai on 06-14-2023 [employer] Work Phone: XR EYE FOREIGN BODY RIGHTon [...] pneumatized. No gross osseous abnormality is noted. [id number]-[id number] cervical spondylosis. Patient is edentulous. IMPRESSION: Impression: No radiographic evidence of radiopaque orbital foreign body. Report Dictated on Electronically Signed By: Mike Tariq MD Electronically Signed Date/Time: 06/14/2023 1:31 PM EST Normal [facility] CBC W Auto Differential pane l (Bld)Ordered By: Suha Saenz on 06-13-2023 Basophils (Bld) [#/Vol] 0.0 10*3/uL 0.0 - 0.2 10*3/uL [facility] Basophils/100 WBC (Bld) 0.6 % 0.0 - 2.0 % [facility] Eosinophils (Bld) [#/Vol] 0.1 10*3/uL 0.0 - 0.5 10*3/uL [facility] Eosinophils/100 WBC (Bld) 1.6 % 1.0 - 6.0 % [facility] Erythrocyte distribution width (RBC) [Ratio] 14.5 % 11.5 - 14.5 % [facility] Hematocrit (Bld) [Volume fraction] 41.9 % 40.0 - 52.0 % [facility] Hemoglobin (Bld) [Mass/Vol] 14.6 g/dL 13.0 - 18.0 g/dL [facility] Interpretation and review of laboratory results Abnormal [facility] Lymphocytes (Bld) [#/Vol] 0.9 10*3/uL Low 1.0 - 4.3 10*3/uL [facility] Lymphocytes/100 WBC (Bld) 16.5 % Low 20.0 - 40.0 % [facility] MCH (RBC) [Entitic mass] 29.1 pg 26.0 - 34.0 pg [facility] MCHC (RBC) [Mass/Vol] 34.8 % 32.0 - 36.0 % [facility] MCV (RBC) [Entitic vol] 83.5 fL 80.0 - 98.0 fL [facility] Monocytes (Bld) [#/Vol] 0.7 10*3/uL 0.0 - 0.8 10*3/uL [facility] Monocytes/100 WBC (Bld) 12.0 % High 2.0 - 10.0 % [facility] Neutrophils (Bld) [#/Vol] 4.0 10*3/uL 1.8 - 7.0 10*3/uL [facility] Neutrophils/100 WBC (Bld) 69.3 % 40.0 - 80.0 % [facility] Nucleated RBC/100 WBC (Bld) [Ratio] 0.1 % [facility] Platelet mean volume (Bld) [Entitic vol] 8.4 fL 7.4 - 12.4 fL [facility] Platelets (Bld) [#/Vol] 198 10*3/uL 140 - 440 10*3/uL [facility] RBC (Bld) [#/Vol] 5.01 10*6/uL 4.40 - 5.9 0 10*6/uL [facility] WBC (Bld) [#/Vol] 5.7 10*3/uL 3.6 - 10.7 10*3/uL [facility] CT Head WO contraston 2023 No acute findings. Report Dictated on Electronically Signed By: Scottie Rock MD Electronically Signed Date/Time: 06/13/2023 11:51 PM [facility] Patient Name: CORY MUELLER : 1950 [...] and the mastoid air cells are clear. [facility] Scottie Rock MD - 06/13/2023 Patient Name: CORY MUELLER : 1950 Exam Date/Time: 06/13/2023 23:50 Procedure: CT HEAD WO IV CONTRAST Ordering Provider: BROJAS MARY Reason For Exam: Mental status change, [...] Electronically Signed Date/Time: 06/13/2023 11:51 PM EST [facility] Radiology Study observation (narrative) [facility] Rigo burns CT Head WO contrastOrdered B y: Scottie Rock on 06-13-2023 [facility] Work Phone: Comprehensive metabolic 1998 panelon 06-13-2023 Albumin [Mass/Vol] 4.3 g/dL 3.5 - 5.0 g/dL [facility] ALP [Catalytic activity/Vol] 89 U/L 38 - 126 U/L [facility] ALT [Catalytic activity/Vol] 27 U/L 0 - 49 U/L [facility] Anion gap [Moles/Vol] 9 mmol/L 3 - 13 mmol/L [facility] AST [Catalytic activity/Vol] 37 U/L 15 - 46 U/L [facility] Bilirubin [Mass/Vol] 0.8 mg/dL 0.2 - 1 .3 mg/dL [facility] Calcium [Mass/Vol] 9.1 mg/dL 8.4 - 10. 4 mg/dL [facility] Chloride [Moles/Vol] 99 mmol/L 98 - 10 7 mmol/L [facility] CO2 [Moles/Vol] 27 mmol/L 22 - 30 mmol/L [facility] Creatinine [Mass/Vol] 1.25 mg/dL 0.66 - 1.25 mg/dL [facility] GFR/1.73 sq M.predicted MDRD (S/P/Bld) [Vol rate/Area] 61.6 mL/min/{1.73_m2} - PINF [facility] Comment on above: Calculation based on the Chronic Kidney Disease Epidemiology Collaboration (CKD-EPI) equation refit without adjustment for race Glucose [Mass/Vol] 90 mg/dL 70 - 100 mg/dL [facility] Interpretation and review of laboratory results Abnormal [facility] Potassium [Moles/Vol] 4.3 mmol/L 3.5 - 5.1 mmol/L [facility] Protein [Mass/Vol] 8.4 g/dL High 6.3 - 8.2 g/dL [facility] Sodium [Moles/Vol] 135 mmol/L 135 - 145 mmol/L [facility] Urea nitrogen [Mass/Vol] 21 mg/dL High 9 - 20 mg/d L [facility] ED Provider Noteon ED Provider Note Emergency [...] and memory loss. Patient found wandering near [employer] by EMS some memory loss from tonight. [...] contact the dictating provider for clarification.) Elham Good Sean, DO [employer] Elham Good Jose Eduardoartur, DO 06/18/231909 [facility] ED Provider Note EMERGENCY DEPARTMENT ENCOUNTER Pt Name: Cory Mueller Birthdate 1950 Date of evaluation: 06/13/2023 ED Provider: Elpidio Sorenson MD CHIEF COMPLAINT Chief Complaint Patient presents with Altered Mental Status Pt is brought into the ED by EMS. Per EMS the pt was found wandering near the bob couch on the [facility]. Pt states that [place]. Pt states that he remembers getting on [...] the bus today on his way to [employer]. Patient states that he does not recall [...] his name and that we are in [place] and that it is May. When asked [...] heard. Pulmonar (more content not included)... Normal [facility] Ethanol (Bld) [Mass/Vol]on 0 06-13-2023 Ethanol [Mass/Vol] g/dL 0.000 - 0 .010 g/dL [facility] Interpretation and review of laboratory results Normal [facility] Free T4 [Mass/Vol]on 024 Free T4 Dialysis [Mass/Vol] 1.25 ng/dL 0.78 - 2.19 ng/dL [facility] Interpretation and review of laboratory results Normal [facility] Laboratory - Chemistry and C hemistry - challengeon 06-13-2023 Troponin I.cardiac [Mass/Vol] 0.019 ng/mL NINF - 0.034 ng/mL [facility] Lactate [Moles/Vol] 1.1 mmol/L 0.7 - 2. 0 mmol/L [facility] Ammonia (P) [Moles/Vol] umol/L Low 9 - 30 umol/ L [facility] Laboratory - Chemistry and C hemistry - challengeOrdered By: Jerilyn Pitt on 06-13-2023 Base excess Calc (BldV) [Moles/Vol] 1.8 mmol/L -3.0 - 3.0 mmol/L [facility] CO2 (BldV) [Partial pressure] 46.6 mm[Hg] [facility] CO2 [Moles/Vol] 28.9 mmol/L High 24.0 - 28.0 mmol/L [facility] HCO3 (Bld) [Moles/Vol] 27.4 mmol/L High 23.0 - 27.0 mmol/L [facility] Oxygen (BldV) [Partial pressure] 35.4 mm[Hg] [facility] pH (BldV) 7.388 [pH] 7.330 - 7.430 [facility] Laboratory - Coagulationon 0 06-13-2023 PT Coag (Bld) [Time] 10.4 s 9.0 - 12.[address] [facility] Laboratory - Hematology and Cell countsOrdered By: Jerilyn Pitt on 06-13-2023 Hemoglobin (Bld) [Mass/Vol] 15.3 g/dL Screen Only [facility] No Panel Informationon 06-13 [facility] Interpretation and review of laboratory results Normal [facility] Interpretation and review of laboratory results Abnormal [facility] No Panel InformationOrdered By: Jerilyn Pitt on 06-13-2023 Interpretation and review of laboratory results Abnormal [facility] Source Of Oxygen Room Air [facility] alth Interpret with caution, pO2 value falsely increased due to vacuum in tube. For accurate results, please draw on a syringe. [facility] PT Coag (Bld) [Time]on 06-13 INR Coag (PPP) [Relative time] 1.0 {INR} 0.9 - 1.1 [facility] Comment on above: Recommended Anticoag ulant Therapy: [...] Interpretation and review of laboratory results Normal [facility] Troponin I.cardiac [Mass/Vol ]on 06-13-2023 Interpretation and review of laboratory results Normal [facility] Patients with high levels of Biotin oral intake (ie >5 mg/day) may have falsely decreased Troponin levels. [facility] Vital signsOrdered By: Jace a Sweetie on 06-13-2023 Oxygen saturation in Venous blood 61.6 % 60.0 - 80.0 % [facility] XR Chest Single viewon 06-13 1. No acute findings. Report Dictated on Electronically Signed By: Ed Valdez MD Electronically Signed Date/Time: 06/13/2023 11:07 PM [facility] Patient Name: CORY MUELLER : [...] pneumothorax. Degenerative change in the thoracic spine. [facility] Ed Valdez MD - 06/13/2023 Patient Name: [...] MD Electronically Signed Date/Time: 06/13/2023 11:07 PM [facility] Radiology Study observation (narrative) [facility] XR Chest Single viewOrdered By: Ed Valdez on 06-13-2023 [facility] Work Phone: Claudio 01-12-2022 CNPN Telephone (TRACFW) CORY MUELLER ([id number]) 1950 M Date Time Provider Department 01/12/22 [place] [facility] During your visit today, we recorded the following information about you: Mihir Bower 01/12/2022 7:23 AM Signed Patient emailed me and said that he was able to get in with the staffing administrator that he was referred to and that he does not want to come here anymore. I told him that we are here if he changes his mind Allergies As of Date: 01/12/2022 (Not on File) Date Reviewed: Never Reviewed Reason for Visit: Appointment [186] Problem List As Of Date: 01/12/2022 (None) Encounter Status:Closed by MIHIR BOWER on 01/12/22 [facility] Vital Signs Date Time Vital Sign Value Performing Clinician Ada fofana 07-02-2023 07:32-0500 Body temperature 97.59 [degF] Elham Channel Mentor IT DO Work Phone: [employer] 07-02-2023 07:32-0500 Diastolic blood pressure 82 mm[Hg] Distra DO Work Phone: [employer] 07-02-2023 07:32-0500 Heart rate 70 /min Distra DO Work Phone: [employer] 07-02-2023 07:32-0500 Respiratory rate 12 /min Distra DO Work Phone: [employer] 07-02-2023 07:32-0500 SaO2% (BldA) [Mass fraction] 96 % Distra DO Work Phone: [employer] 07-02-2023 07:32-0500 Systolic blood pressure 138 mm[Hg] Elham Borjas DO Work Phone: [facility] [employer] 06-17-2023 10:00-0500 Body mass index (BMI) [Ratio] 20.08 kg/m2 Elham Borjas DO Work Phone: [facility] [employer] 06-17-2023 10:00-0500 Body weight 65.32 kg Elham Borjas DO Work Phone: [facility] [employer] 06-17-2023 07:35-0500 Body height 180.3 cm Elham Borjas DO Work Phone: [facility] [employer] Comment on above: per chart, pt est 6' Encounters Encounter Date Encounter Type Care Provider Facility Start: 10-26-2024 ambulatory Yo KUHN Facil ity:[facility] Start: 09-11-2024 End: 09-11-2024 ambulatory Yo KUHN Facility:[facility] Start: 04-13-2024 End: 04-13-2024 ambulatory Yo KUHN Facility:[facility] Start: 03-13-2024 End: 03-13-2024 ambulatory Yo KUHN Facility:[facility] Start: 07-17-2023 End: 07-17-2023 ambulatory [facility] Work Phone: Start: 07-17-2023 End: 07-17-2023 Departed Referred [facility] [address] Start: 07-03-2023 Registered Referred [facility] [address] Start: 06-16-2023 End: 06-16-2023 Evaluation and management of inpatient SIERRA Magdaleno OBI [facility] Start: 06-13-2023 End: 07-02-2023 Evaluation and management of inpatient SIERRA Rasta OBI [facility] Start: 06-13-2023 End: 07-02-2023 Evaluation and management of inpatient Elham Borjas DO Work Phone: [facility] MICKEY 6W Comment on above: Delirium (Primary Dx ); Cognitive impairment Start: 01-04-2018 End: 01-04-2018 Patient encounter WALKER J [facility] Procedures Date Procedure Procedure Detail Performing [...] 06-14-2023 Radiologic exam abdomen 1 view Kenneth karimi DO Work Phone: Start: 06-14-2023 Comprehensive metabolic [...] Vaccine ( season) COVID-19 Vaccine ( season) [facility] [employer] Start: 01-18-2023 Influenza vaccination Influenza Vacc ine (#1) [facility] [employer] Start: 01-17-2019 Screening for malign ant neoplasm of colon [facility] Start: 2011 RSV Immunization age d 60 or older (1 - 1-dose 60+ series) RSV Immunization aged 60 or older (1 - 1-dose 60+ series) [facility] Start: 11-27-2001 Zoster Vaccines (1 of 2) Zoster Vacc jenelle (1 of 2) [facility] Start: 11-27-1970 DTaP/Tdap/Td Vaccine s (1 - Tdap) DTaP/Tdap/Td Vaccines (1 - Tdap) [facility] Start: 11-27-1970 Hepatitis A Vaccines (1 of 2 - Risk 2-dose series) Hepatitis A Vaccines (1 of 2 - Risk 2-dose series) [facility] Start: 11-27-1969 Hepatitis C screening Hepatitis C Sc reening [facility] Start: 1963 Depression Screening Depression Scre ening [facility] Start: 11-27-1957 Pneumococcal Vaccine : 65+ Years (1 of 2 - PCV) Pneumococcal Vaccine: 65+ Years (1 of 2 - PCV) [facility] Start: 1950 Lipid panel Lipid Panel [facility] Start: 1950 Medicare Advantage A nnual Wellness Visit (AWV) Medicare Advantage Annual Wellness Visit (AWV) [facility] Start: 1950 Screening for malign ant neoplasm of colon [facility] Fungus identified in Unspecified specimen by Culture Fungal Culture Microbiology Pending Discharge 06/17/2023 1:13 PM EST [facility] Work Phone: Immunizations Immunization Date Immunization Notes Care Provider Fa bam 02-02-2021 influenza virus vacc ine, unspecified formulation Elham Borjas DO Work Phone: [facility] Payers Date Payer Category Payer Self-pay 2024 Unknown [id number] 2023 Medicaid [employer] UHC [place] MEDICAID ONLY [id number] 2023-Present [address] [place] [address] Medicaid HMO [id number] 2019 Medicare HUMANA MEDICARE ADVANTAGE HUMANA MEDICARE [id number] 2019-Present [address] [address] [place] [address] Medicare HMO [id number] 2019 Medicare [id number] 1959 Unknown [id number] Unknown [id number] Unknown [id number] Unknown [id number] Unknown [id number] Social History Date Type Detail Facility Tobacco smoking stat [facility] Smokes tobacco daily [facility] History of tobacco use Cigarette Smoker [facility] Start: 06-13-2023 End: 06-14-2023 History of Social function [facility] Start: 06-13-2023 End: 06-14-2023 Alcohol Use Disorder Identification Test - Consumption [AUDIT-C] [facility] How often to you hav e a drink containing alcohol? Never [facility] How many standard dr inks containing alcohol do you have on a typical day? Patient does not drink [facility] Start: 1950 Sex Assigned At Not on file [facility] Start: 1950 Sex Assigned At Male [facility] Clinical Notes 06-13-2023 to 07-02-2023 Care Coordination - MYNOR Barragan - 07/02/2023 3:35 PM ESTCare Coordination - MYNOR Barragan - 07/02/2023 3:35 PM ESTCare Coordination - Nahomi Robertson - 07/02/2023 12:36 PM EST Note Date & Type Note Facility 07-02-2023 Note Late entry for 07-02. Referral made to [facility] Home. [facility] 07-02-2023 Note Formatting of this n ote might be different from the original. Requested [facility] arrange [facility] Rashi Dumont set up for 3 pm-now 4:30-5 pharmacy picking tech. Used cot due to delirium on admission, became disoriented at [facility] , cognitive impairment, lacks capacity to make medical decisions, headache of unknown etiology. Updated Ex -KORIN Mcdaniel, Radar Systems Engineer, [facility] and [facility]. Mcdaniel to contact the building cleaner where patient lives to check on rent payments. She will also arrange to take some belongs to the facility. STIFF LEG OPERATOR suggested she work with the Sanforizer at the facility regarding future plans of returning home. Will make a Direction Home referral for home assist and potential future Assisted Living. [facility] 07-02-2023 Note Formatting of this n ote might be different from the original. Requested to arrange transport to [facility]. Rashi Dudleyyony set up for 3 pm-now 4:30-5 pharmacy picking tech. Used cot due to delirium on admission, became disoriented at [facility] , cognitive impairment, lacks capacity to make medical decisions, headache of unknown etiology. Updated Ex -Violeta RN, Radar Systems Engineer, [facility] and [facility]. Mcdaniel to contact the building cleaner where patient lives to check on rent payments. She will also arrange to take some belongs to the facility. STIFF LEG OPERATOR suggested she work with the Sanforizer at the facility regarding future plans of returning home. Will make a Direction Home referral for home assist and potential future Assisted Living. [facility] 07-02-2023 Miscellaneous Notes Requested to arrange transport to [facility]. Rashi Dumont set up for 3 pm-now 4:30-5 pharmacy picking tech. Used cot due to delirium on admission, became disoriented at [facility] , cognitive impairment, lacks capacity to make medical decisions, headache of unknown etiology. Updated Ex -Violeta RN, Radar Systems Engineer, [facility] and [facility]. Mcdaniel to contact the building cleaner where patient lives to check on rent payments. She will also arrange to take some belongs to the facility. STIFF LEG OPERATOR suggested she work with the Sanforizer at the facility regarding future plans of returning home. Will make a Direction Home referral for home assist and potential future Assisted Living. Patient Choice Patient Name: CORY MUELLER Date of : 1950 All Providers Sent Referral Name: Rosalba Feliciano Phone: [phone] Address: [address] [place] [address] Name: [facility] Phone: [phone] Address: [address] [place] [address] Name: [facility]. Phone: [phone] Address: [address] [place] [address] Name: [facility] Phone: [phone] Address: [address] [place] [address] Name: [facility] Phone: [phone] Address: [facility] [place] [address] Name: [facility] Phone: [phone] Address: [address] [place] [address] Name: [facility] Phone: [phone] Address: [address] [place] [address] was entered into [facility] for the SNF- [facility] Discharge med list transmitted to SNF- [facility] per TCC request. Chart reviewed. Spoke to patient at bedside re: info that both [facility] and [facility] are able to accept. Patient stated he would prefer [facility]. Facility notified to start auth. Problem: Safety - Adult Goal: Free from fall injury Outcome: Progressing Problem: Neurosensory - Adult Goal: Achieves maximal functionality and self care Outcome: Progressing Problem: Safety - Adult Goal: Free from fall injury Outcome: Adequate for Discharge Problem: Discharge Planning Goal: Discharge to home or other facility with appropriate resources Outcome: Adequate for Discharge Referral placed to [facility] via [facility] per [facility] request. Await review and response regarding ability to accept. TCC notified. Received responses in [facility], [facility] and [facility] are not able to accept. Spoke to patient at bedside and reviewed list. He would like referrals to [facility], [facility] and [facility]. [facility] tasked to place referrals. Problem: Safety - [...] hematologic stability Outcome: Progressing Referral placed to [facility] per [facility] request. Await review and response regarding ability to accept. TCC notified. Provided patient at bedside a choice list. Discussed with patient need for facility with special care for patients with forgetfulness. He agreed and stated that he would prefer to go to a facility in the [facility] area. We reviewed the list and he would like referrals to [facility], [facility] and [facility]. [facility] tasked to place referrals. VM left with [...] lacks decision making capacity for discharge. Per ESE note, patient ex- is willing to become patient HCPOA (patient choice) however not the guardian. Patient may need SEE completed for guardianship for placement if med team does not feel patient can discharge home safely. At present , I have been unable to set up home PCP visits. Per med team they will follow patient if discharges home for [facility]. SW and TCC to continue to [...] placement. Violeta reports patient does have a [id number] lives with patient's sister- Gabriela although they do not get along, have not seen each other for a year and patient denies Sandro is his son. Will ask patient if wants to name Violeta as his HCPOA and if so can assist with paperwork. Will follow. Etymology Professor following case for Discharge Needs. Spoke to Dr. Fagan in office today. She stated that [facility] would likely be able to follow patient in the community until a PCP can be established through home visits. Adam Mcguire, tasked in careport with this information so that patient can have HHC at discharge. I placed calls to multiple home visit companies: -[facility] at [phone] -unable to accept, does not take his insurance -[facility]: [phone] -left [facility] at [phone] -patient lives out of area/ provided me with number [phone] -spoke to Violeta at above number, who stated patient needs a provider to qualify and he is out of her area ([place])/ she transferred me to [facility] to see if they would make an exception to see. Spoke to Gilda who stated an exception to provider rule is unlikely but provided me with number [phone] and stated should talk to Sierra Avendano, the data analysis assistant. -[employer] at [phone] -spoke to Violeta. She stated they are at capacity and on an 8 week wait list. I provided her with patient information and Gabriela Mueller's number (sister) for contact if and when they may be able to accept. Patient did not have a phone number in his chart. Number to call and inquire about set up, place on list is [phone]. Chart reviewed. Geriatric MD to see today [...] his PCP. He agrees. Placed call to [facility] and left VM to set up home visits. TCC and SW to continue to follow Also spoke with sister-Gabriela regarding HCPOA-she is willing. Did explain what all that means and she would be the contact in the future regarding medical issues. Will work with patient on paperwork. Contacted sister- Gabriela Mueller-[phone]. She states she and family have not [...] Intake Outcome: Progressing Social Work consulted for housing-"patient kicked out of his apartment." Reviewed chart, met with patient to discuss. Patient states he was kicked out of his apartment-[facility] [employer] [facility] in [place] for smoking in his apartment. STIFF LEG OPERATOR contacted Deila II-left message. Call received back from Yudith landa to the building cleaner-Saloni Nance. Yudith stated patient is not kicked [...] he has capacity) for discharge, ie homeless jail, medicaid for ECF. TCC to continue to follow. 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 Patient did state that he has a sister Gabriela in [place] and another sister in [place]) Confirmation of Payer with patient/family: Yes Payer Name: [employer] Medicare/[facility]- medicaid only : No Confirmation of Primary [...] Stefanie Lipscomb RN documented in this encounter [facility] 07-02-2023 Note Formatting of this n ote might be different from the original. Patient Choice Patient Name: CORY MUELLER Date of : 1950 All Providers Sent Referral Name: [facility] Phone: [phone] Address: [address] [place] [address] Name: [facility] Phone: [phone] Address: [address] [place] [address] Name: [facility]. Phone: [phone] Address: [address] [place] [address] Name: [facility] Phone: [phone] Address: [address] [place] [address] Name: [facility] Phone: [phone] Address: [address] [place] [address] Name: [facility] Phone: [phone] Address: [address] [place] [address] Name: [facility] Phone: [phone] Address: [address] [place] [address] [facility] 07-02-2023 Note Formatting of this n ote might be different from the original. Patient Choice Patient Name: CORY MUELLER Date of : 1950 All Providers Sent Referral Name: Rosalba Feliciano Phone: [phone] Address: [address] [place] [address] Name: [facility] Phone: [phone] Address: [address] [place] [address] Name: [facility] [employer] Phone: [phone] Address: [address] [place] [address] [facility] Phone: [phone] Address: [address] [place] [address] Name: [facility] Phone: [phone] Address: [address] [place] [address] Name: [facility] Phone: [phone] Address: [address] [place] [address] Name: [facility] Phone: [phone] Address: [address] [place] [address] [facility] 07-02-2023 History of Presen t illness Narrative Discharge instructions printed and placed in packet. Patient has no IV. Report called to [facility]. Transport scheduled to come around 1500. Med [...] (97.6 F) (Temporal) Resp 12 Ht 5' 11" (1.803 m) Comment: per chart, pt est [...] sleep hygiene - Limit light disturbance between 0216-7458 - Minimize auditory stimulation - Open blinds/turn [...] to SNF today 7AM-5PM: contact resident on "ACH Med A" (find by hovering over attending's name on left side of patient's chart) 5PM-7AM: contact AI3 jorgito Was paged by nursing regarding patient's headache. [...] (98.1 F) (Temporal) Resp 20 Ht 5' 11" (1.803 m) Comment: per chart, pt est [...] communicates just wants to be somewhere in [place]. Though he does not have decisional capacity regarding is ability to safely live independently in community I do think we should continue to consider his preferences regarding SNF. -D/W TCC 7AM-5PM: contact resident on "ACH Med A" (find by hovering over attending's name on left side of patient's chart) 5PM-7AM: contact AI3 [facility] Patient has had trouble sleeping since [...] be monitored and followed by the diet property maintenance technician. Med Team Progress Note Cory Mueller [...] - Diet: General Disposition: Continue admission to [facility] pending acceptance to SNF Associated attestation - Nickie Fagan DO - 06/30/2023 12:56 PM EST I saw and evaluated the patient. I agree with the findings and plan of care as documented in the resident's note, except as noted in Green text. Patient seen and examined personally during bedside teaching rounds (Date of Service: 06/30/23) -no new complaints. 7AM-5PM: contact resident on "ACH Med A" (find by hovering over attending's name on left side of patient's chart) 5PM-7AM: contact AI3 res Med Team Progress Note Cory Mueller : 1950(72 y.o.) Date: June 29, 2023 Med Team: aRsta Attending: Dr. Fagan Chief Complaint: confusion and [...] - Diet: General Disposition: Continue admission to [facility] pending acceptance to SNF Associated attestation - Nickie Fagan DO - 06/29/2023 1:29 PM EST I saw and evaluated the patient. I agree with the findings and plan of care as documented in the resident's note, except as noted in Green text. Patient seen and examined personally during bedside teaching rounds (Date of Service: 06/29/23) -no new complaints 7AM-5PM: contact resident on "ACH Med A" (find by hovering over attending's name on left side of patient's chart) 5PM-7AM: contact AI3 res Med Team Progress Note Cory Perla Julien : 1950(72 y.o.) Date: June 28, 2023 Med Team: A Attending: Dr. Fagan Chief Complaint: Confusion and decreased memory Subjective: - No acute events overnight. - Currently, patient is resting comfortably in bed. Denies recollection of selecting possible placement for SNF yesterday but seems satisfied with staying close to the [facility]. Patient continues to endorse a headache [...] (98.2 F) (Temporal) Resp 20 Ht 5' 11" (1.803 m) Comment: per chart, pt est [...] of Service: 06/28/23) 7AM-5PM: contact resident on "ACH Med A" (find by hovering over attending's name on [...] (97.6 F) (Temporal) Resp 20 Ht 5' 11" (1.803 m) Comment: per chart, pt est [...] Expressed to me interested in facility in [facility]. List at bedside. Though pt has been found to lack capacity for discharge decisions especially in level of care needed I do think we should consider his desire to remain in [facility]. 7AM-5PM: contact resident on "ACH Med A" (find by hovering over attending's name on [...] (97.5 F) (Temporal) Resp 20 Ht 5' 11" (1.803 m) Comment: per chart, pt est [...] can improve symptoms 7AM-5PM: contact resident on "ACH Med A" (find by hovering over attending's name on left side of patient's chart) 5PM-7AM: contact AI3 res Nutrition update completed. Chart reviewed. Patient to be monitored and followed by the diet property maintenance technician. Med Team Progress Note Cory Perla Julien : 1950(72 y.o.) Date: June 25, 2023 [...] (97.5 F) (Temporal) Resp 18 Ht 5' 11" (1.803 m) Comment: per chart, pt est [...] of Sevice: 06/25/23) 7AM-5PM: contact resident on "ACH Med A" (find by hovering over attending's name on left side of patient's chart) 5PM-7AM: contact AI2 res Med Team Progress Note Cory Mueller : 1950(72 y.o.) Date: June 24, 2023 Med Team: A Attending: Dr. Fgaan Chief Complaint: Confusion and decreased memory Subjective: [...] (98.3 F) (Temporal) Resp 20 Ht 5' 11" (1.803 m) Comment: per chart, pt est [...] in apt alone. 7AM-5PM: contact resident on "ACH Med A" (find by hovering over attending's name on [...] (96.9 F) (Temporal) Resp 20 Ht 5' 11" (1.803 m) Comment: per chart, pt est [...] Addendums may have been dictated using the [employer] Voice Recognition Feature. The document was proofread; however, unrecognized voice recognition layout former errors may be present. Please note, the [...] with med team. 7AM-5PM: contact resident on "[facility] Med Team" (found by hovering over attending's name on [...] (98.3 F) (Temporal) Resp 18 Ht 5' 11" (1.803 m) Comment: per chart, pt est [...] Addendums may have been dictated using the [employer] Voice Recognition Feature. The document was proofread; however, unrecognized voice recognition layout former errors may be present. Please note, the [...] and pt's choice. 7AM-5PM: contact resident on "[facility] Med Team" (found by hovering over attending's name on [...] (97.8 F) (Temporal) Resp 18 Ht 5' 11" (1.803 m) Comment: per chart, pt est [...] Addendums may have been dictated using the [employer] Voice Recognition Feature. The document was proofread; however, unrecognized voice recognition layout former errors may be present. Please note, the [...] minimal community/family support. 7AM-5PM: contact resident on "[facility] Med Team" (found by hovering over attending's name on [...] (temporalis) Fluid Accumulation: No significant fluid accumulation Electrician Shop Strength: Not Performed Nutrition Assessment: Pt with noted use of tobacco and EtOH without other PMH noted/indicated presented with confusion; per chart, pt was brought in on 06/13 by EMS from [facility], pt had reported being at home watching TV when he found himself somehow on a bus and ended up at [facility], pt cannot remember why he got on [...] to contact pt sister, Ms. Keith (from [place]) states she and her sister (who lives in [place]) are Cory's only living relatives. Stated pt [...] reccomending 24 hour care following discharge. RD recording studio internship saw pt. Pt stated that his appetiite has been normal and he has been eating his meals. Pt stated that he had veal, mashed potatoes, and carrots for lunch. (probably pot roast) When asked what he eats at home he stated "whatever I have in the fridge". Pt stated he drinks whole milk frequently [...] (kg): 65.3 kg Total Energy Requirements (kcals/day): 3357-0654 kcal/day (28-30 kcal/kg) Weight Used for Protein [...] 76-100% Anthropometric Measures: Height: 180.3 cm (5' 11") (per chart, pt est 6') Current Body Weight: 66.5 kg (146 lb 9.6 oz) (bedscale) Admission Body Weight: 48.7 kg (107 lb 5.8 oz) (? bedscale) Usual Body Weight: 68 kg (150 lb) (per pt; no weight hx however can see from 2018 01/15/2018- 159#) % Weight Change (Calculated): -4 [place] Body Weight (lbs) (Calculated): 172 lbs [place] Body Weight (Kg) (Calculated): 78 kg % [place] Body Weight (Calculated): 83.7 % BMI (kg/m2) [...] needs at this time Estela Guy Contact: *[phone] Images from the original note were not included. PHYSICAL THERAPY [facility] Treatment Note Name/MRN: Cory Mueller ([id number]) Date of : 1950 Age: 72 y.o. Room/Bed: [facility]/W6629 A Discharge Recommendation: Home independently Equipment Needed: [...] y.o.) Date: June 20, 2023 Med Team: A Attending: Dr. Fagan [...] (97.7 F) (Temporal) Resp 16 Ht 5' 11" (1.803 m) Comment: per chart, pt est [...] GMF for now. Associated attestation - Nickie aFgan DO - 06/20/2023 11:20 PM EST I [...] and geriatrics assistance. 7AM-5PM: contact resident on "ACH Med A" (find by hovering over attending's name on left side of patient's chart) 5PM-7AM: contact AI3 res [facility] In[facility] Consult Service Late Entry [...] to the community. OK to discharge to [facility] from geriatric perspective once safe disposition is determined Time spent: 55 minutes Follow-up: will follow with you Subjective Chief Complaint: Chief Complaint Patient presents with Altered Mental Status Pt is brought into the ED by EMS. Per EMS the pt was found wandering near the [place] [facility]. Pt states that [place]. Pt states that he remembers getting on [...] history of migraines. Describes his brain as "mush". Acknowledges that he is having difficulty thinking. Doesn't think it will be a problem when he goes home because his apartment has an elevator. Tells me that his money has been "blocked". Says that he tried to use his [...] that he doesn't have a car. He "junked" it because it was too expensive to keep it. 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 Has two sisters. One lives in [place]. He says that the other sister does not have room for him to stay with her. He would prefer to go home to his apartment but would also be agreeable to fci care. I explained the concern for his ability to manage things like groceries, bills, etc given his cognitive impairment. He states that he understands. Thinks he will be ok at home, but cannot tell me why. I discussed Mr. Mueller with Dr. Fagan and Dr. Curry. Objective BP 147/93 Pulse 66 Temp 36.6 C (97.8 F) (Temporal) Resp 18 Ht 5' 11" (1.803 m) Comment: per chart, pt est [...] Daily, Bradley Millard MD, 1 mg at 06/20/231053 melatonin tablet 3 mg, 3 mg, Oral, Nightly PRN, Raymundo Patrick MD, 3 mg at 06/18/232125 melatonin tablet 5 mg, 5 mg, Oral, Nightly, Bradley Millard MD, 5 mg at 06/20/232114 sodium chloride ([place]) 0.65 % nasal spray 1 spray, 1 [...] 1.317 06/13/2023 Lab Results Component Value Date [id number] 06/15/2023 Lab Results Component Value Date VITD25 27 (L) 06/15/2023 Reviewed: social history and active problem lists Images from the original note were not included. OCCUPATIONAL THERAPY [facility] Initial Evaluation Name/MRN: Cory Mueller ([id number]) Evaluation Date: 06/19/2023 Date of : 1950 Admission Date: 06/13/2023 9:56 PM Age: 72 y.o. Room[facility]Bed: [facility] A Discharge Recommendation: 24 hour supervision [...] Responsibilities: Independent Receives Help From: None Active Associate Sales: No Prior Level of Function ADL Assistance: [...] of Care supervision is transferred to a [facility] Therapy Services Occupational Therapist. Goals and/or [...] month his check was held by the press department manager. Informed patient that we spoke to [...] (98 F) (Temporal) Resp 20 Ht 5' 11" (1.803 m) Comment: per chart, pt est [...] 126 U/L Final No results found for: "CKTOTAL", "CKMB", "TROPONINI" No results found for: "PROCAL", "CHOL", "TRIG", "HDL", "TSH", "VITD25", "HGBA1C", "VANCOTROUGH" Assessment and Plan: Delirium Cognitive impairment - [...] for discharge planning. 7AM-5PM: contact resident on "ACH Med A" team (found by hoovering over attending's name [...] the electronic health record, and coordinating care. [facility] Consult Service Admission Date: [...] at [facility]) for more in depth [...] be available to this patient (ECF or jail?) and work with patient and family and choosing a safe discharge plan. Discussed with primary team and RN Follow-up: will follow with you Subjective Chief Complaint: Patient presents with Altered Mental Status Pt is brought into the ED by EMS. Per EMS the pt was found wandering near the [place] [facility]. Pt states that he lives in [place]. Pt states that he remembers getting on the bus this morning. Pt states that he is not sure where he was going when he got on the bus. Pt states that he does not remember much from today. Geriatrics consulted for "Episode of confusion and wondering to [facility], unclear etiology. MMSE 20. Concerns for safety at home" HPI- The patient is new to me but seen by the Geriatric Inpatient Consult team. 72 y.o. year-old male admitted to acute care from home for confusion. Per H&P, patient was brought from [facility] by EMS. He was supposedly at home watching TV and somehow found himself on the bus and ended up at [facility]. Diagnosed with an amnestic event. Per chart [...] alone. He reports that he had to "junk" his car, denies there being previous accidents. He states that because he doesn't have a car he walks to the grocery store to get his groceries. He states that he has not seen a primary care doctor in " a long time", identifies that it is difficult to get [...] (97.8 F) (Temporal) Resp 20 Ht 5' 11" (1.803 m) Comment: per chart, pt est [...] Nightly, Bradley Millard MD, 5 mg at 01/29/24 2107 sodium chloride ([place]) 0.65 % nasal spray 1 spray, 1 spray, Each Nostril, PRN, Matty Bryson, DO, 1 spray at 06/18/23 0454 Physical [...] states that the month is June and , follows commands, no tremor Musculoskeletal: Gait: assessment [...] 1.317 06/13/2023 Lab Results Component Value Date [id number] 575 06/15/2023 Lab Results Component Value Date VITD25 27 (L) 06/15/2023 Reviewed: allergies, previous encounters, social history, imaging, active problem lists, medications, and labs Family Communication Number Called: [phone] Name of Designated Family Brush Operator: Gabriela Perazant Relationship: sister Phone Call Outcome: I spoke with the individual listed above. Family Brush Operator Updated on the Following: Spoke to [...] do not get along. She states that "they would kill each other" if they are in the same room and that Cory does not claim him as his son. She did say that she spoke to his ex and that she will be visiting him in the hospital [facility]. She provided Ex Violeta Zheng [...] (98 F) (Temporal) Resp 18 Ht 5' 11" (1.803 m) Comment: per chart, pt est [...] 126 U/L Final No results found for: "CKTOTAL", "CKMB", "TROPONINI" No results found for: "PROCAL", "CHOL", "TRIG", "HDL", "TSH", "VITD25", "HGBA1C", "VANCOTROUGH" Assessment and Plan: Delirium Cognitive impairment - [...] walking in room, voiding well. Still endorses "memory problems." LP done yesterday, initial results are normal. Will follow up additional studies. Work up for any acute issues regarding mental status change has been complete. 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 Need to work on disposition now, as he is medically ok for discharge. His sister was contacted yesterday. Patient was given her correct number and wants to discuss if he can move in with her. If this is not possible, will work with SW regarding other options-?ECF 7AM-5PM: contact resident on "ACH Med A" team (found by hoovering over attending's name [...] and coordinating care. Family Communication Number Called: [phone] Name of Designated Family Brush Operator: Gabriela Keith Relationship: sister Phone Call Outcome: I spoke with the individual listed above. Family Brush Operator Updated on the Following: Ms. Keith (from [place]) states she and her sister (who lives in [place]) are Cory's only living relatives. They have [...] She gave an address for him ([address] [facility] in [place]). She does not believe he has any [...] Accumulation: No significant fluid accumulation (per chart) Electrician Shop Strength: Not Performed Nutrition Assessment: Pt with noted use of tobacco and EtOH without other PMH noted/indicated presented with confusion; per chart, pt was brought in on 06/13 by EMS from [facility], pt had reported being at home watching TV when he found himself somehow on a bus and ended up at [facility], pt cannot remember why he got on [...] in room and noted eggs, sausage and irish toast were sent, reports eating well here, [...] (kg): 65.3 kg Total Energy Requirements (kcals/day): 3306-2378 kcal/day (28-30 kcal/kg) Weight Used for Protein [...] Ordered Anthropometric Measures: Height: 180.3 cm (5' 11") (per chart, pt est 6') Current Body Weight: 65.3 kg (144 lb) (bedscale observed by RD 06/17) Admission Body Weight: 48.7 kg (107 lb 5.8 oz) (? bedscale) Usual Body Weight: 68 kg (150 lb) (per pt; no weight hx however can see from 201701/15/2018- 159#) % Weight Change (Calculated): -4 [place] Body Weight (lbs) (Calculated): 172 lbs [place] Body Weight (Kg) (Calculated): 78 kg % [place] Body Weight (Calculated): 83.7 % BMI (kg/m2) [...] Lyly Acosta RD Contact: Secure chat or *[phone] [facility] In[facility] Consult Service Admission Date: [...] at [facility]) for more in depth cognitive [...] the pt was found wandering near the [place] on the [facility]. Pt states that he lives in [place]. Pt states that he remembers getting on the bus this morning. Pt states that he is not sure where he was going when he got on the bus. Pt states that he does not remember much from today. Geriatrics consulted for "Episode of confusion and wondering to [facility], unclear etiology. MMSE 20. Concerns for safety at home" HPI- The patient is new to me but seen by the Geriatric Inpatient Consult team. 72 y.o. year-old male admitted to acute care from home for confusion. Per H&P, patient was brought from [facility] by EMS. He was supposedly at home watching TV and somehow found himself on the bus and ended up at [facility]. Diagnosed with an amnestic event. Per chart [...] testing this afternoon. He asks for a "sleeping pill" so he can go to bed. Discussed [...] (97.2 F) (Temporal) Resp 17 Ht 5' 11" (1.803 m) Comment: per chart, pt est [...] 5 mg at 06/16/23 1955 sodium chloride ([place]) 0.65 % nasal spray 1 spray, 1 [...] 1.317 06/13/2023 Lab Results Component Value Date [id number] 575 06/15/2023 Lab Results Component Value Date VITD25 27 (L) 06/15/2023 Reviewed: allergies, previous encounters, social history, imaging, active problem lists, medications, and labs Images from the original note were not included. PHYSICAL THERAPY [facility] Initial Evaluation Name/MRN: Cory Mueller ([id number]) Evaluation Date: 06/17/2023 Date of : 1950 Admission Date: 06/13/2023 9:56 PM Age: 72 y.o. [facility]: [facility] A Discharge Recommendation: Home independently Equipment [...] Responsibilities: Independent Receives Help From: None Active Associate Sales: No Prior Level of Function ADL Assistance: [...] Raw Score (No Stairs) : 19 JH-HLM JH-HLM Score: Walked 25 ft or more (i.e. [...] about a goal for therapy he states, "I don't know." Encounter Problems Encounter Problems (Active) Mobility Patient will ambulate 300 feet with independence and no assistive device in order to improve safety and independence with mobility. Start: 06/17/23 Expected End: 07/01/23 Therapy Time Individual Co-treatment Time In 0845 Time Out 0854 Minutes 9 PPE worn in accordance with [facility] guidelines.] Leticia Leon PT Patient's Physical Therapy Plan of Care supervision is transferred to a [facility] Therapy Services Physical Therapist. Goals and/or [...] (97.6 F) (Temporal) Resp 20 Ht 6' 0.01" (1.829 m) Wt 107 lb 5.8 oz [...] 126 U/L Final No results found for: "CKTOTAL", "CKMB", "TROPONINI" No results found for: "PROCAL", "CHOL", "TRIG", "HDL", "TSH", "VITD25", "HGBA1C", "VANCOTROUGH" Assessment and Plan: Delirium Cognitive impairment - [...] to self. - Will reach out to Pairer Odds Tejas today to locate ABHILASH. Sisters number [...] tobacco. 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 PHYSICAL THERAPY [facility] Name/MRN: Cory Mueller ([id number]) Date: 06/16/2023 PT eval attempted, but pt [...] (97 F) (Temporal) Resp 20 Ht 6' 0.01" (1.829 m) Wt 107 lb 5.8 oz [...] 126 U/L Final No results found for: "CKTOTAL", "CKMB", "TROPONINI" No results found for: "PROCAL", "CHOL", "TRIG", "HDL", "TSH", "VITD25", "HGBA1C", "VANCOTROUGH" Assessment and Plan: Delirium Cognitive impairment - [...] to self. - Will reach out to Pairer Odds Tejas to locate ABHILASH. Sisters number provided by patient was not active. Agree. Today he is A+O x 1. Seems more confused than yesterday. Does complain of headache for the last 4-5 days and that he doesn't normally get headaches--"something is going on." MRI unremarkable for acute process. Given the [...] at this time. Unable to contact sisters (ABHILASH). Phone number he gave doesn't work. Team to ask Pairer Odds Adams tomorrow for assistance tracking down family. [...] states he has one sister living in [place] and another in [place]. Patient is okay with medical team contacting sister in [place] for further information. He is A&Ox2. Patient [...] (97.8 F) (Temporal) Resp 16 Ht 6' 0.01" (1.829 m) Wt 107 lb 5.8 oz [...] 126 U/L Final No results found for: "CKTOTAL", "CKMB", "TROPONINI" No results found for: "PROCAL", "CHOL", "TRIG", "HDL", "TSH", "VITD25", "HGBA1C", "VANCOTROUGH" Assessment and Plan: Acute episode of delirium [...] from the original note were not included. [facility] Inpatient Consult Service Admission Date: 06/13/2023 Consult Date: 06/14/2023 Consult reason: Episode of confusion and wondering to [facility], unclear etiology. MMSE 20. Concerns for safety at home Geriatric consult acknowledged. Please contact covering physician via Secure Chat with urgent questions or concerns. Consult will be completed on next . Nedra White MD 06/14/2023 2:55 PM Pt may not be aware documented in this encounter [facility] 07-02-2023 Note Attestation with edits by Nickie [...] Reason for Admission & Hospital Course: Cory Muellre is a 72 y.o. male that presented to [facility] on 06/13/2023 and was admitted for Confusion and decreased memory Patient is a 72 year old male with PMH of tobacco use, and alcohol abuse that presented to [facility] after being found wandering in a [facility]. Patient was brought in by EMS and [...] reach. Eventually patient was placed at a [facility] and discharged on 07/02/23. Disposition: SNF Activity: [...] 0.65 % nasal spray Commonly known as: [place] Administer 1 spray into each nostril every [...] of Discharge None Follow Up Appointment(s): Per SNF Items to Address at Followup Visit: - Assess patient's headache and optimize as needed - Optimize sleep medication and assess response to trazodone [facility] 07-02-2023 Note Formatting of this n ote might be different from the original. 7000 was entered into [employer] for the [facility]. Discharge med list transmitted to [facility] via Careport per TCC request. [facility] 07-02-2023 Note Formatting of this n ote might be different from the original. 7000 was entered into [employer] for the [facility]- [facility]. Discharge med list transmitted to [facility] via [employer] per TCC request. [facility] 07-01-2023 Note Problem: Safety - Ad ult Goal: Free from fall injury Outcome: Progressing Problem: Neurosensory - Adult Goal: Achieves maximal functionality and self care Outcome: Progressing [facility] 07-01-2023 Note Formatting of this n ote might be different from the original. Chart reviewed. Spoke to patient at bedside re: info that both [facility] and [facility] are able to accept. Patient stated he would prefer [facility]. Facility notified to start auth. [facility] 07-01-2023 Note Formatting of this n ote might be different from the original. Chart reviewed. Spoke to patient at bedside re: info that both [facility] and [facility] are able to accept. Patient stated he would prefer [facility]. Facility notified to start auth. [facility] 07-01-2023 Plan of care note Problem: Safety - Adult Goal: Free from fall injury Outcome: Progressing Problem: Neurosensory - Adult Goal: Achieves maximal functionality and self care Outcome: Progressing [facility] 06-30-2023 Plan of care note Problem: Safety - Adult Goal: Free from fall injury Outcome: Adequate for Discharge Problem: Discharge Planning Goal: Discharge to home or other facility with appropriate resources Outcome: Adequate for Discharge [facility] 06-29-2023 Hospital Discharg e raj Dacosta RN [...] Secondary Emergency Contact: Gabriela Mueller Relation: Sister Gamma Operator needed? No Past Surgical History: History reviewed. [...] (98 F) (Temporal) Resp 20 Ht 5' 11" (1.803 m) Comment: per chart, pt est [...] Dressing Minimal assistance Toileting Independent Feeding Independent Resume Specialist Total assistance Med Delivery yes Wound Care [...] Score: @READMISSIONRISKDETAILS@ Discharging to Facility/ Agency Name: [facility] [place] Address: [address] [place] [address] Dialysis Facility (if applicable) Name: Address: Dialysis Schedule: Phone: Fax: [facility] Lab Technician/Sanforizer signature: ICIAN SECTION Prognosis: excellent Condition at [...] the diagnosis listed and that he requires fdc facility for less than 30 days. Update Admission H&P: No change in H&P PHYSICIAN SIGNATURE: documented in this encounter [facility] 06-28-2023 Note Referral placed to [facility] via Careport per TCC request. Await review and response regarding ability to accept. TCC notified. [facility] 06-28-2023 Note Formatting of this n ote might be different from the original. Referral placed to [facility] via Careport per TCC request. Await review and response regarding ability to accept. TCC notified. [facility] 06-28-2023 Note Formatting of this n ote might be different from the original. Referral placed to [facility] via [facility] per [facility] request. Await review and response regarding ability to accept. TCC notified. [facility] 06-28-2023 Note Formatting of this n ote might be different from the original. Received responses in [facility] are not able to accept. Spoke to patient at bedside and reviewed list. [facility]. [facility] tasked to place referrals. [facility] 06-28-2023 Note Formatting of this n ote might be different from the original. Received responses in [facility] and [place] [facility] are not able to accept. Spoke to patient at bedside and reviewed list. [facility]. [facility] tasked to place referrals. [facility] 06-28-2023 Note Problem: Safety - Ad [...] Adult Goal: Maintains hematologic stability Outcome: Progressing [facility] 06-28-2023 Plan of care note Problem: [...] Adult Goal: Maintains hematologic stability Outcome: Progressing [facility] 06-27-2023 Note Referral placed to [facility] via Careport per TCC request. Await review and response regarding ability to accept. TCC notified. [facility] 06-27-2023 Note Formatting of this n ote might be different from the original. Referral placed to [facility] via Careport per TCC request. Await review and response regarding ability to accept. TCC notified. [facility] 06-27-2023 Note Formatting of this n ote might be different from the original. Referral placed to [facility] via Careport per TCC request. Await review and response regarding ability to accept. TCC notified. [facility] 06-27-2023 Note Formatting of this n ote might be different from the original. Provided patient at bedside a choice list. Discussed with patient need for facility with special care for patients with forgetfulness. He agreed and stated that he would prefer to go to a facility in the [facility]. We reviewed the list and he would like referrals to [facility]. [facility] tasked to place referrals. [facility] 06-27-2023 Note Formatting of this n ote might be different from the original. Provided patient at bedside a choice list. Discussed with patient need for facility with special care for patients with forgetfulness. He agreed and stated that he would prefer to go to a facility in the [facility] area. We reviewed the list and he would like referrals to [facility], [facility] and [facility]. [facility] tasked to place referrals. [facility] 06-27-2023 Note Formatting of this n ote might be different from the original. VM left with ex-, CHAYO Mcdaniel to discuss facility choices for placement. [facility] 06-27-2023 Note Formatting of this n ote might be different from the original. VM left with ex-, CHAYO Mcdaniel to discuss facility choices for placement. [facility] 06-26-2023 Note Problem: Safety - Ad ult Goal: Free from fall injury Outcome: Progressing Problem: Discharge Planning Goal: Discharge to home or other facility with appropriate resources Outcome: Progressing [facility] 06-26-2023 Note Formatting of this n ote might be different from the original. Left VM this AM to ex- and HCPOA to discuss discuss discharge planning. [facility] 06-26-2023 Note Formatting of this n ote might be different from the original. Left VM this AM to ex- and HCPOA to discuss discuss discharge planning. [facility] 06-26-2023 Plan of care note Problem: Safety - Adult Goal: Free from fall injury Outcome: Progressing Problem: Discharge Planning Goal: Discharge to home or other facility with appropriate resources Outcome: Progressing [facility] [employer] 06-25-2023 Note Formatting of this n ote [...] to discuss. SW notified of this conversation. [facility] [employer] 06-25-2023 Note Formatting of this n ote [...] willing. Left VM with Violeta to discuss. ESE notified of this conversation. [facility] [employer] 06-24-2023 Note Formatting of this n ote might be different from the original. Met with patient. He stated he still wanted to name his ex -Violeta Mueller as his HCPOA. Patient completed paperwork with my assistance and explanation of what wording means on the form. Will make copies for patient's chart and provide him the original and copy for Violeta . [facility] follow. [facility] [employer] 06-24-2023 Note Formatting of this n ote might be different from the original. Met with patient. He stated he still wanted to name his ex -Violeta Mueller as his HCPOA. Patient completed paperwork with my assistance and explanation of what wording means on the form. Will make copies for patient's chart and provide him the original and copy for Violeta . Will follow. [facility] [employer] 06-24-2023 Note Formatting of this n ote [...] will follow patient if discharges home for [facility]. SW and TCC to continue to follow. [facility] [employer] 06-24-2023 Note Formatting of this n ote [...] will follow patient if discharges home for [facility]. SW and TCC to continue to follow. [facility] 06-23-2023 Note Med Team Progress No [...] (96.9 ?F) (Temporal) Resp 20 Ht 5' 11" (1.803 m) Comment: per chart, pt est [...] Maggy Rodrigez DO (more content not included)... [facility] 06-22-2023 Plan of care note The [...] other facility with appropriate resources Outcome: Progressing [facility] 06-22-2023 Note Med Team Progress No andrey Cory Mueller : 1950(72 y.o.) Date: June 22, 2023 Med Team: Rsata Attending: Dr. Candelario Chief Complaint: Confusion and [...] (98.3 ?F) (Temporal) Resp 18 Ht 5' 11" (1.803 m) Comment: per chart, pt est [...] plain with TC (more content not included)... [facility] 06-21-2023 Note Formatting of this n [...] placement. Violeta reports patient does have a ccb-Jkhaf-pwa lives with patient's sister- Gabriela although they do not get along, have not seen each other for a year and patient denies Sandro is his son. Will ask patient if wants to name Violeta as his HCPOA and if so can assist with paperwork. Will follow. [facility] [employer] 06-21-2023 Note Formatting of this n ote [...] placement. Violeta reports patient does have a cgb-Lawsf-itt lives with patient's sister- Gabriela although they do not get along, have not seen each other for a year and patient denies Sandro is his son. Will ask patient if wants to name Violeta as his HCPOA and if so can assist with paperwork. Will follow. [facility] 06-21-2023 Note Med Team Progress No andrey Cory [...] (97.8 ?F) (Temporal) Resp 18 Ht 5' 11" (1.803 m) Comment: per chart, pt est [...] WNL - Vitamin D levels low at - Urine drugs screen positive for THC. [...] need to e (more content not included)... [employer] [facility] 06-20-2023 Note Formatting of this n ote might be different from the original. Etymology Professor following case for Discharge Needs. [facility] Note Formatting of this n ote might be different from the original. Etymology Professor following case for Discharge Needs. [facility] 06-20-2023 Note Formatting of this n ote might be different from the original. Spoke to Dr. Fagan in office today. She stated that [facility] would likely be able to follow patient in the community until a PCP can be established through home visits. Adam Mcguire, [facility] so that patient can have HHC at discharge. I placed calls to multiple home visit companies: -[facility] at [phone] -unable to accept, does not take his insurance -[facility]: [phone] -left [facility] at [phone] -patient lives out of area/ provided me with number [phone] -spoke to Violeta at above number, who stated patient needs a provider to qualify and [place] is [place] she transferred me to [facility] to see if they would make an exception to see. Spoke to Gilda who stated an exception to provider rule is unlikely but provided me with number [phone] and stated should talk to Sierra Avendano, the data analysis assistant. -[employer] at [phone] -spoke to Violeta. She stated they are at capacity and on an 8 week wait list. I provided her with patient information and Gabriela Mueller's number (sister) for contact if and when they may be able to accept. Patient did not have a phone number in his chart. Number to call and inquire about set up, place on list is [phone]. [facility] 06-20-2023 Note Formatting of this n ote [...] placed calls to multiple home visit companies: -[facility] at [phone] -unable to accept, does not take his insurance -[facility]: [phone] -left -[facility] at [phone] -patient lives out of area/ provided me with number [phone] -spoke to Violeta at above number, who stated patient needs a provider to qualify and he is [place] her [place] ([place])/ she transferred me to [facility] to see if they would make an exception to see. Spoke to Gilda who stated an exception to provider rule is unlikely but provided me with number [phone] and stated should talk to Sierra Avendano, the data analysis assistant. -[employer] [facility] at [phone] -spoke to Violeta. She stated they are at capacity and on an 8 week wait list. I provided her with patient information and Gabriela Mueller's number (sister) for contact if and when they may be able to accept. Patient did not have a phone number in his chart. Number to call and inquire about set up, place on list is [phone]. [facility] 06-20-2023 Note Formatting of this n ote [...] TCC and SW to continue to follow. [facility] 06-20-2023 Note Formatting of this n ote [...] TCC and SW to continue to follow. [facility] [employer] 06-19-2023 Nurse Note Patient c/o headache 11/26. Tylenol was given earlier in the day for c/o headache. No relief. Informed MD. doesn't want to order any new medications at this time due to his mentation. Will continue to monitor. [facility] [employer] [facility] [employer] 06-19-2023 Nurse Note Patient c/o headache 11/26. [...] recall doing so. documented in this encounter [facility] 06-19-2023 Note OCCUPATIONAL THERAPY [facility] Initial Evaluation Name/MRN: Cory Mueller ([id number]) Evaluation Date: 06/19/2023 Date of : 1950 Admission Date: 06/13/2023 9:56 PM Age: 72 y.o. [facility] Discharge Recommendation: 24 hour supervision [...] Responsibilities: Independent Receives Help From: None Active Associate Sales: No Prior Level of Function ADL Assistance: [...] of Care supervision is transferred to a [facility] Services Occupational Therapist. Goals and/or treatment plan was established in collaboration with patient/family/other representatives. [facility] 06-19-2023 Note Formatting of this n ote might be different from the original. Updated patient that his sister is willing to be his HCPOA. He does not want to name her,likely since he can not stay with her he does not want her into his buisiness. Will follow. [facility] 06-19-2023 Note Formatting of this n ote might be different from the original. Updated patient that his sister is willing to be his HCPOA. He does not want to name her,likely since he can not stay with her he does not want her into his buisiness. Will follow. [facility] 06-19-2023 Note Formatting of this n ote might be different from the original. Chart reviewed. Per ESE, patient is unable to move in with his sister however, she is agreeable to being the HCPOA. SW intends to complete. I spoke to patient at bedside about housing. He stated that he would agree to return to his apartment. I discussed with him setting up house calls for his PCP. He agrees. Placed call to [place] [facility] and left VM to set up home visits. TCC and SW to continue to follow [facility] 06-19-2023 Note Formatting of this n ote [...] his PCP. He agrees. Placed call to [place] [facility] and left VM to set up home visits. TCC and SW to continue to follow [facility] [employer] 06-19-2023 Note Formatting of this n ote might be different from the original. Also spoke with sister-Gabriela regarding HCPOA-she is willing. Did explain what all that means and she would be the contact in the future regarding medical issues. Will work with patient on paperwork. [facility] 06-19-2023 Note Formatting of this n ote might be different from the original. Also spoke with sister-Gabriela regarding HCPOA-she is willing. Did explain what all that means and she would be the contact in the future regarding medical issues. Will work with patient on paperwork. [facility] 06-19-2023 Note Formatting of this n ote might be different from the original. Contacted sister- Gabriela Mueller-[phone]. She states she and family have not [...] ties with family years ago. Will follow. [facility] 06-19-2023 Note Formatting of this n ote might be different from the original. Contacted sister- Gabriela Mueller-[phone]. She states she and family have not [...] ties with family years ago. Will follow. [facility] 06-19-2023 Plan of care note The patient [...] Interventions Goal: Assess Nutritional Intake Outcome: Progressing [facility] [employer] 06-18-2023 Note Formatting of this n ote might be different from the original. Social Work consulted for housing-"patient kicked out of his apartment." Reviewed chart, met with patient to discuss. Patient states he was kicked out of his apartment-[facility] [employer] in [place] for smoking in his apartment. STIFF LEG OPERATOR contacted [employer]. Call received back from Yudith landa to the building cleaner-Saloni Goyo. Yudith stated patient is not kicked [...] discuss with this with her. Will follow. [facility] [employer] 06-18-2023 Note Formatting of this n ote might be different from the original. Social Work consulted for housing-"patient kicked out of his apartment." Reviewed chart, met with patient to discuss. Patient states he was kicked out of his apartment-[facility] [facility] in [place] for smoking in his apartment. STIFF LEG OPERATOR contacted [employer] message. Call received back from Yudith landa to the building cleaner-Saloni Goyo. Yudith stated patient is not kicked [...] discuss with this with her. Will follow. [facility] 06-18-2023 Consult note Associated Order (s): IP CONSULT TO SOCIAL WORK Mj Social Work care coordination note. [facility] 06-18-2023 Consult note Associated Order (s): IP CONSULT TO SOCIAL WORK Mj Social Work care coordination note. Associated Order(s): IP CONSULT TO GERIATRICS [facility] Inpatient Consult Service Admission Date: 06/13/2023 Admission Status: INPATIENT Chief Complaint: Chief Complaint Patient presents with Altered Mental Status Pt is brought into the ED by EMS. Per EMS the pt was found wandering near the bob couch on the [facility]. Pt states that he lives in [place]. Pt states that he remembers getting on the bus this morning. Pt states that he is not sure where he was going when he got on the bus. Pt states that he does not remember much from today. Reason for Appointment Geriatrics consulted for "Episode of confusion and wondering to bob couch, unclear etiology. MMSE 20. Concerns for safety at home". Assessment/Plan Principal Problem: Delirium Active Problems: Acute [...] team. - patient to follow up with [facility] on an OP basis, once at baseline - he prefers to be seen at [facility]. Agree - would recommend to reach out to architectural representative [employer] to corroborate patient's history. Agree. At [...] the hospital so that he can have "money to get anything else". Patient is a poor historian. Patient states [...] frequency, or dysuria. Patient states he wants [employer] to get elected and watches the news all day, but did not know when the election year occurred. Patient states he has been paying his rent through his bank, but does not remember which bank he uses. On chart review: Patient was brought from [facility] by EMS. Patient supposedly was at home watching TV and somehow found himself on the bus and ended up at [facility]. Concern for an amnestic episode. Pleasant and cooperative but vague when pressed for specific details. Thinks that he went to the store looking for help from someone because of his confusion. Fairly nonplussed about admission and does not seem to be anxious about leaving the hospital. Conversation with caregiver: Sister - Gabriela Mueller - [phone] - patient provided this phone number, which has been disconnected. Patient has not spoken to his sister in approximately 5-6 months. Patient denies having any friends in the area - states that he stays at home and watches TV all day. Advance Care Planning Healthcare Power ofAttorney: No Financial Power of Tumblers Supervisor: No Living Will:No Code Status: Full [...] (97.8 F) (Temporal) Resp 16 Ht 6' 0.01" (1.829 m) Wt 107 lb 5.8 oz [...] Pen 2 Reading Read & Obey Present: "Close your eyes" 1 Write a sentence 1 Copy Design (overlapping pentagons) 0 MMSE Score: 21/30 Clock Drawing Test: Correct Elements (1 pt each): Numbers 1-12 only included, Numbers are drawn inside the clock [place], Numbers are equally spaced from each other, hour hand points to correct number, minute hand points to correct number, and there are only 2 clock hands Total Score 6/7 Time Instructions: Twothirty-five Scores < 5 out of 7 correlate with significantly more driving errors J Gen Veterinarian Poultry Med 2005; 20:240-244 Labs and Imaging: Recent [...] TSH 1.317 06/13/2023 No components found for: "B12" Lab Results Component Value Date VITD25 27 (L) 06/15/2023 Reviewed: active problem list, medication list, allergies, family history, social history, health maintenance, notes from last encounter, lab results, imaging Follow-up: Follow up at [facility] in 4-6 weeks - post discharge Communication [...] for further recommendations. documented in this encounter [facility] 06-18-2023 Note Family Communication Number Called: [phone] Name of Designated Family Brush Operator: Gabriela Mueller Relationship: sister Phone Call Outcome: I spoke with the individual listed above. Family Brush Operator Updated on the Following: Spoke to [...] do not get along. She states that "they would kill each other" if they are in the same room and that Cory does not claim him as his son. She did say that she spoke to his ex and that [facility] She provided Ex Violeta Zheng phone number: . Gabriela said that she cannot think of a single friend or family member that he speaks to anymore. She also stated that he cannot return to his apartment because they kicked him out for smoking as he lives in a non smoking apartment complex. She is unsure when he was kicked out. [facility] 06-18-2023 Note Formatting of this n [...] he has capacity) for discharge, ie homeless jail, medicaid for ECF. TCC to continue to follow. [facility] 06-18-2023 Note Formatting of this n [...] he has capacity) for discharge, ie homeless jail, medicaid for ECF. TCC to continue to follow. [facility] 06-17-2023 Note Interventional Radio logy Brief Postprocedure Note Procedure: IR lumbar puncture Preprocedure Diagnosis: AMS with unknown cause Postprocedure Diagnosis: no change Staff: Staff Role Emily Irvin RN Radiology Nurse Abraham Deng MD Radiologist Henry Crow, RT (R) Rig Builder Ronni Bentley, RT (R) Rig Builder Description of procedure: fluoroscopically guided lumbar puncture [...] condition. Abraham Deng MD Interventional Radiology Pager: [facility] 06-17-2023 Note Formatting of this n ote is different from the original. Interventional Radiology Brief Postprocedure Note Procedure: IR lumbar puncture Preprocedure Diagnosis: AMS with unknown cause Postprocedure Diagnosis: no change Staff: Staff Role Emily Irvin RN Radiology Nurse Abraham Deng MD Radiologist Henry Crow, RT (R) Rig Builder RT Nahid (R) Rig Builder Description of procedure: fluoroscopically guided lumbar puncture [...] condition. Abraham Deng MD Interventional Radiology Pager: [facility] Work Phone: 06-17-2023 Note Formatting of this n ote is different from the original. Interventional Radiology Brief Postprocedure Note Procedure: IR lumbar puncture Preprocedure Diagnosis: AMS with unknown cause Postprocedure Diagnosis: no change Staff: Staff Role Emily Irvin RN Radiology Nurse Abraham Deng MD Radiologist Henry Crow, RT (R) Rig Builder RT Nahid (R) Rig Builder Description of procedure: fluoroscopically guided lumbar puncture [...] condition. Abraham Deng MD Interventional Radiology Pager: [facility] [employer] Phone: 06-17-2023 Note Family Communication Number Called: [phone] Name of Designated Family Brush Operator: Gabriela Ketih Relationship: sister Phone Call Outcome: I spoke with the individual listed above. Family Brush Operator Updated on the Following: Ms. Keith (from [place]) states she and her sister (who lives in [place]) are Corys only living relatives. They have not spoken with him in many years except a brief phone call a few months ago asking for money. He had apparently cut himself off from the family for unknown reasons. She denies a history of confusion in [facility]. States he used to drink alcohol daily but is unsure if he still drinks. She gave an address for him ([address] in [place]). She does not believe he has any [...] deeply and was emotional during the conversation. [facility] [employer] [facility] 06-17-2023 Nurse Note Patient arrived from , Dr. Hany Deng was in to speak with the patient regarding LP, consent was obtained. Patient was placed prone on exam table prepped and draped in sterile fashion. 12cc of clear CSF was collected for labs. Patient tolerated procedure well. Transferring to . . [facility] 06-17-2023 Note Formatting of this n ote might be different from the original. Chart reviewed. Patient with increased confusion and COLLIER. +Rx for possible meningitis, LP pending. Patient is green slipped. Geriatrics consulted for delirium. PT recommending home independently. Patient may need decision maker and placement if unable to care for self. TCC to continue to follow. [facility] 06-17-2023 Note Formatting of this n ote might be different from the original. Chart reviewed. Patient with increased confusion and COLLIER. +Rx for possible meningitis, LP pending. Patient is green slipped. Geriatrics consulted for delirium. PT recommending home independently. Patient may need decision maker and placement if unable to care for self. TCC to continue to follow. [facility] 06-17-2023 Note PHYSICAL THERAPY [facility] Initial Evaluation Name/MRN: Cory Mueller ([id number]) Evaluation Date: 06/17/2023 Date of : 1950 Admission Date: 06/13/2023 9:56 PM Age: 72 y.o. [facility]: [facility] Discharge Recommendation: Home independently Equipment [...] Responsibilities: Independent Receives Help From: None Active Associate Sales: No Prior Level of Function ADL Assistance: [...] about a goal for therapy he states, "I don't know." Encounter Problems Encounter Problems (Active) Mobility Patient will ambulate 300 feet with independence and no assistive device in order to improve safety and independence with mobility. Start: 06/17/23 Expected End: 07/01/23 Therapy Time Individual Co-treatment Time In 0845 Time Out 0854 Minutes 9 PPE worn in accordance with [facility] guidelines.] Leticia Leon PT Patient's Physical Therapy Plan of Care supervision is transferred to a [facility] Therapy Services Physical Therapist. Goals and/or treatment plan was established in collabo (more content not included)... [facility] 06-16-2023 Note [facility] [address] [place] [id number] ROUTINE EEG REPORT Patient Name: Cory Mueller : 1950 Date of Study: 06/16/2023 Duration Recorded: 25 minutes EEG#: [id number] PSYCHOTHERAPIST COUNSELOR: Rosette Sánchez PROVIDER REQUESTING STUDY: Sierra Hay [...] 5 mg at 06/15/23 2214 sodium chloride ([place]) 0.65 % nasal spray 1 spray 1 spray Each Nostril PRN Matty Bryson DO thiamine (Vitamin B1) 250 mg in sodium chloride 0.9 % 100 mL IVPB 250 mg IntraVENous q24h Bradley Millard MD Stopped at 06/15/23 2244 TECHNICAL ASPECTS: This routine scalp EEG study with video was carried out at [facility]. Scalp electrodes were positioned in person by an electro mechanical technologist, following patient education, according to the 10-20 International system of electrode placement and maintained for integrity and quality of the recording. EEG data with video was recorded continuously and digitally stored. The electro mechanical technologist reviewed all automated detections and manual [...] observed. Francis Ferrer MD, PHD Epilepsy Attending [facility] 06-16-2023 Procedure note Associated Ord er(s): EEG Images from the original note were not included. [facility] [address], [place] [id number] ROUTINE EEG REPORT Patient Name: Cory Mueller : 1950 Date of Study: 06/16/2023 Duration Recorded: 25 minutes EEG#: [id number] PSYCHOTHERAPIST COUNSELOR: Rosette Sánchez PROVIDER REQUESTING STUDY: Sierra Hay [...] 5 mg at 06/15/23 2214 sodium chloride ([place]) 0.65 % nasal spray 1 spray 1 spray Each Nostril PRN Matty Bryson DO thiamine (Vitamin B1) 250 mg in sodium chloride 0.9 % 100 mL IVPB 250 mg IntraVENous q24h Bradley Millard MD Stopped at 06/15/23 6137 TECHNICAL ASPECTS: This routine scalp EEG study with video was carried out at [facility]. Scalp electrodes were positioned in person by an electro mechanical technologist, following patient education, according to the 10-20 International system of electrode placement and maintained for integrity and quality of the recording. EEG data with video was recorded continuously and digitally stored. The electro mechanical technologist reviewed all automated detections and manual [...] observed. Francis Ferrer MD, PHD Epilepsy Attending [facility] Work Phone: 06-16-2023 Procedure note Associated Ord er(s): EEG Images from the original note were not included. [facility] [address] [place] [id number] ROUTINE EEG REPORT Patient Name: Cory Mueller : 1950 Date of Study: 06/16/2023 Duration Recorded: 25 minutes EEG#: [id number] PSYCHOTHERAPIST COUNSELOR: Rosette Sánchez PROVIDER REQUESTING STUDY: Sierra Hay [...] 5 mg at 06/15/23 2214 sodium chloride ([place]) 0.65 % nasal spray 1 spray 1 spray Each Nostril PRN Matty Bryson DO thiamine (Vitamin B1) 250 mg in sodium chloride 0.9 % 100 mL IVPB 250 mg IntraVENous q24h Bradley Millard MD Stopped at 06/15/23 2244 TECHNICAL ASPECTS: This routine scalp EEG study with video was carried out at [facility]. Scalp electrodes were positioned in person by an electro mechanical technologist, following patient education, according to the 10-20 International system of electrode placement and maintained for integrity and quality of the recording. EEG data with video was recorded continuously and digitally stored. The electro mechanical technologist reviewed all automated detections and manual [...] PHD Epilepsy Attending documented in this encounter [facility] 06-16-2023 Note Med Team Progress No te [...] (97 ?F) (Temporal) Resp 20 Ht 6' 0.01" (1.829 m) Wt 107 lb 5.8 oz [...] 126 U/L Final No results found for: "CKTOTAL", "CKMB", "TROPONINI" No results found for: "PROCAL", "CHOL", "TRIG", "HDL", "TSH", "VITD25", "HGBA1C", "VANCOTROUGH" Assessment and Plan: Delirium Cognitive impairment - A&Ox1 and more delirious this am - MMSE 20 on initial evaluation - Vitamin B12, TSH, and free T4 WNL - Vitamin D levels low at 27 - Urine drugs screen positive for THC. Ethyl glucuronide negative. - UA and urine culture show no abnormalities - RPR pending (more content not included)... [facility] 06-15-2023 Consult note Associated Order (s): IP CONSULT TO GERIATRICS [facility] Inpatient Consult Service Admission Date: 06/13/2023 Admission Status: INPATIENT Chief Complaint: Chief Complaint Patient presents with Altered Mental Status Pt is brought into the ED by EMS. Per EMS the pt was found wandering near the bob [place] on the [place] [facility]. Pt states that [place]. Pt states that he remembers getting on the bus this morning. Pt states that he is not sure where he was going when he got on the bus. Pt states that he does not remember much from today. Reason for Appointment Geriatrics consulted for "Episode of confusion and wondering to bob couch, unclear etiology. MMSE 20. Concerns for safety at home". Assessment/Plan Principal Problem: Delirium Active Problems: Acute [...] team. - patient to follow up with [facility] on an OP basis, once at baseline - he prefers to be seen at [facility]. Agree - would recommend to reach out to architectural representative [employer] to corroborate patient's history. Agree. At [...] the hospital so that he can have "money to get anything else". Patient is a poor historian. Patient states [...] On chart review: Patient was brought from [facility] by EMS. Patient supposedly was at home watching TV and somehow found himself on the bus and ended up at [facility]. Concern for an amnestic episode. Pleasant and cooperative but vague when pressed for specific details. Thinks that he went to the store looking for help from someone because of his confusion. Fairly nonplussed about admission and does not seem to be anxious about leaving the hospital. Conversation with caregiver: Sister - Gabriela Mueller - [phone] - patient provided this phone number, which has been disconnected. Patient has not spoken to his sister in approximately 5-6 months. Patient denies having any friends in the area - states that he stays at home and watches TV all day. Advance Care Planning Healthcare Power ofAttorney: No Financial Power of Tumblers Supervisor: No Living Will:No Code Status: Full [...] (97.8 F) (Temporal) Resp 16 Ht 6' 0.01" (1.829 m) Wt 107 lb 5.8 oz [...] Pen 2 Reading Read & Obey Present: "Close your eyes" 1 Write a sentence 1 Copy Design (overlapping pentagons) 0 MMSE Score: 2130 Clock Drawing Test: Correct Elements (1 pt each): Numbers 1-12 only included, Numbers are drawn inside the clock [place], Numbers are equally spaced from each other, hour hand points to correct number, minute hand points to correct number, and there are only 2 clock hands Total Score 6/7 Time Instructions: Twothirty-five Scores < 5 out of 7 correlate with significantly more driving errors [employer] 2005; 20:240-244 Labs and Imaging: Recent [...] TSH 1.317 06/13/2023 No components found for: "B12" Lab Results Component Value Date VITD25 27 (L) 06/15/2023 Reviewed: active problem list, medication list, allergies, family history, social history, health maintenance, notes from last encounter, lab results, imaging Follow-up: Follow up at [facility] in 4-6 weeks - post discharge Communication [...] Please see fellow note for further recommendations. [facility] 06-15-2023 Note Med Team Progress No te [...] states he has one sister living in [place] and another in [place]. Patient is okay with medical team contacting sister in [place] for further information. He is A&Ox2. Patient [...] (97.8 ?F) (Temporal) Resp 16 Ht 6' 0.01" (1.829 m) Wt 107 lb 5.8 oz [...] 126 U/L Final No results found for: "CKTOTAL", "CKMB", "TROPONINI" No results found for: "PROCAL", "CHOL", "TRIG", "HDL", "TSH", "VITD25", "HGBA1C", "VANCOTROUGH" Assessment and Plan: Acute episode of delirium [...] performed the associated (more content not included)... [facility] 06-14-2023 Note Formatting of this n ote might be different from the original. Care Managment Initial Assessment Date: 06/14/2023 Patient Name: Cory Mueller : 1950 Patient Information Source of Information: Patient Cognition/Language: WFL - Within Functional Limits, Other (Comment) (? mild confusion new or chronic) Permission given to speak with patient solar sales representative and assessor/caregiver as indicated: (no EC noted. Patient did state that he has a sister Gabriela in [place] and another sister in [place]) Confirmation of Payer with patient/family: Yes Payer Name: [facility] Medicare/[facility]- medicaid only : No Confirmation of Primary [...] assistance with transport home. Stefanie Lipscomb RN [facility] 06-14-2023 Note Formatting of this n ote might be different from the original. Care Managment Initial Assessment Date: 06/14/2023 Patient Name: Cory Mueller : 1950 Patient Information Source of Information: Patient Cognition/Language: WFL - Within Functional Limits, Other (Comment) (? mild confusion new or chronic) Permission given to speak with patient solar sales representative and assessor/caregiver as indicated: (no EC noted. Patient did state that he has a sister Gabriela in [place] and another sister in [place]) Confirmation of Payer with patient/family: Yes Payer Name: [facility] Medicare/[facility] mycare- medicaid only [place]: No Confirmation of Primary Care Physician: No [...] assistance with transport home. Stefanie Lipscomb RN [employer] 06-14-2023 Nurse Note Pt arrives to room 629 he is currently AOx4, denies pain. He states the grocery store called the ambulance because he was unaware how he need up there. No open areas on his skin, same is pink warm and dry. Addendum: During assessment, pt does ask the same question a number of times and does not recall doing so. [facility] [employer] 06-14-2023 Note Attestation signed by Sierra Hay [...] forgetful. He lives alone, one sister in [place], but they do not really talk. No [...] Vitamin D, RPR 7AM-5PM: contact resident on "[facility] Med A" team (found by hoovering over attending's name [...] PMH of tobacco use that presented to [facility] on 06/13/2023 from [facility] by EMS. Patient supposedly was at home watching TV and somehow found himself on the bus and ended up at [facility]. He cannot why he got on the bus and what he was doing at [facility]. He was A&Ox2 at this time. EMS [...] Cardiovascular: Rate an (more content not included)... [facility] 06-14-2023 History and physical note Internal [...] PMH of tobacco use that presented to [facility] on 06/13/2023 from [facility] by EMS. Patient supposedly was at home watching TV and somehow found himself on the bus and ended up at [facility]. He cannot why he got on the bus and what he was doing at [facility]. He was A&Ox2 at this time. EMS [...] - Admit to F - Spoke to customer training specialist attending with following recs: - Can [...] Normal (BMI 18.5-24.9) - Disposition: Admit to [facility]. - Given the signs and symptoms [...] PMH brought to ER when found at [facility] not knowing why he was there. He [...] forgetful. He lives alone, one sister in [place], but they do not really talk. No [...] Vitamin D, RPR 7AM-5PM: contact resident on "[facility] Med A" team (found by hoovering over attending's name [...] record, and communicating results to the patient. [facility] 06-14-2023 History and physical note Internal Medicine: [...] PMH of tobacco use that presented to [facility] on 06/13/2023 from [facility] by EMS. Patient supposedly was at home watching TV and somehow found himself on the bus and ended up at [facility]. He cannot why he got on the bus and what he was doing at [facility]. He was A&Ox2 at this time. EMS [...] - Admit to F - Spoke to customer training specialist attending with following recs: - Can [...] forgetful. He lives alone, one sister in [place], but they do not really talk. No [...] Vitamin D, RPR 7AM-5PM: contact resident on "[facility] Med A" team (found by hoovering over attending's name [...] to the patient. documented in this encounter [facility] 06-14-2023 Emergency department Note Pt sleeping, audible snoring noted. Equal and bilateral chest rise Ze Marquez 06/14/23 0050 [facility] 06-14-2023 Emergency department Note Pt sleeping, audible snoring noted. Equal and bilateral chest rise Ze Marquez 06/14/23 005 Pt states that at this time he does not have to urinate. Will attempt to get the urine sample at a later time FRANTZ Fitzgerald 06/13/23 2311 Emergency Department Encounter [facility] [...] and memory loss. Patient found wandering near [employer] by EMS some memory loss from tonight. [...] wandering near the bob couch on the [facility]. Pt states that [place] in [place]. Pt states that he remembers getting on [...] his name and that we are in [place] and that it is May. When asked [...] Culture. Procedure Abnormality Status --------- ------ Complete Urinalysis[[id number]] Please view results for these tests on the individual orders. DRUGS OF ABUSE COMPLETE URINALYSIS TROPONIN I TROPONIN I CBC WITH AUTO DIFFERENTIAL COMPREHENSIVE METABOLIC PANEL WITH MG REFLEX Narrative: The following orders were created for panel order Comprehensive Metabolic Panel with Mg Reflex. Procedure Abnormality Status --------- ------ Comprehensive metabolic p...[[id number]] Please view results for these tests on [...] Height: ED Course as of 06/14/23 0418 [facility] Jun 13, [id number] 72-year-old male presents via [...] Resident 06/14/23 0418 documented in this encounter [facility] 06-13-2023 Note NOTE: This result is for medical treatment only. Analysis performed using non-forensic procedures. [facility] 06-13-2023 Emergency department Note Pt states that at this time he does not have to urinate. Will attempt to get the urine sample at a later time FRANTZ Fitzgerald 06/13/23 2311 [facility] 06-13-2023 Physician Emergency department Note Emergency Department [...] and memory loss. Patient found wandering near [employer] by EMS some memory loss from tonight. [...] [employer] Elham Borjas DO 06/18/231909 [facility] Phone: 06-13-2023 Physician Emergency department Note EMERGENCY DEPARTMENT ENCOUNTER Pt Name: Cory Mueller Birthdate 1950 Date of evaluation: 06/13/2023 ED Provider: Elpidio Sorenson MD CHIEF COMPLAINT Chief Complaint Patient presents with Altered Mental Status Pt is brought into the ED by EMS. Per EMS the pt was found wandering near the bob [place] the [place] [facility]. Pt states that [place]. Pt states that he remembers getting on [...] the bus today on his way to [facility]. Patient states that he does not recall [...] his name and that we are in [place] and that it is May. When asked [...] Culture. Procedure Abnormality Status --------- ------ Complete Urinalysis[[id number]] Please view results for these tests on the individual orders. DRUGS OF ABUSE COMPLETE URINALYSIS TROPONIN I TROPONIN I CBC WITH AUTO DIFFERENTIAL COMPREHENSIVE METABOLIC PANEL WITH MG REFLEX Narrative: The following orders were created for panel order Comprehensive Metabolic Panel with Mg Reflex. Procedure Abnormality Status --------- ------ Comprehensive metabolic p...[[id number]] Please view results for these tests on [...] of 06/14/23 0418 [facility] Jun 13, 2023 220 72-year-old male presents via EMS after being [...] Medicine Provider Elpidio Sorenson MD Resident 06/14/23417 [facility] [employer] Work Phone: Evaluation note Diagnosis Delirium- Primary Other alteration of consciousness Delirium Other alteration of consciousness Cognitive impairment Unspecified persistent mental disorders due to conditions classified elsewhere Acute metabolic encephalopathy Cognitive impairment Unspecified persistent mental disorders due to conditions classified elsewhere Debility Unspecified debility History of alcohol abuse Nondependent alcohol abuse, in remission [facility] note[facility] assessment information availableWWhite [facility] Work Phone: Reason for referral (narrative)* Consultation (Routine) - Authorized Specialty Diagnoses / Procedures Referred By Contac t Referred To Contact Geriatric Medicine Diagnoses Cognitive impairment Procedures AK OFFICE/OUTPATIENT NEW HIGH MDM 60 MINUTES Bradley Millard MD [address] [place] [address] [facility] [address] [facility] [address] [place] [address] Referral ID Status Reason Start Date Expiration Date Visits Requested Visits Authorized [id number] Authorized Specialty Services Required 06/15/2023 06/14/2024 1 1 [facility] Summary Purpose Family History No Family History Records FoundNo Family History Records FoundNo Family History Records FoundNo Family History Records Found Advance Directives No Advanced Directives Records FoundDocuments on File Type Date Recorded Patient Brush Operator Expl anation Advance Directives and Livin g Will 06/26/2023 1:08 PM Latest Code Status on File Code Status Date Activated Date Inactivated Comments Full Code 06/25/2023 11:33 PM 07/02/2023 7:44 PM Additional Source Comments (unrecognized sect ion and content) No Status Records FoundNo Status Records FoundNo Status Records FoundNo Status Records Found INFORMATION SOURCE (unrecogn ized section and content) DATE CREATED AUTHOR 01/12/2018 [facility] DATE CREATED AUTHOR AUTHOR'S ORGANIZ ATION 01/14/2022 [facility] DATE CREATED AUTHOR AUTHOR'S ORGANIZ ATION 07/17/2023 [facility] DATE CREATED AUTHOR AUTHOR'S ORGANIZ ATION 11/07/2024 [facility] Reason for Visit (unrecogniz ed section and content) Reason Comments Altered Mental Status Pt is brought into the ED by EMS. Per EMS the pt was found wandering near the [employer] [place] [facility]. Pt states that he [place]. Pt states that he remembers getting on the bus this morning. Pt states that he is not sure where he was going when he got on the bus. Pt states that he does not remember much from today. Specialty Diagnoses / Procedures Referred By Dennys t Referred To Contact Diagnoses Delirium Procedures .. Sierra Hay MD [address] [facility] [address] [place] [address] [facility] [address] [address] Referral ID Status Reason Start Date Expiration Date Visits Re quested Visits Authorized [id number] 1 1 Scheduled Active and Recently Administ [...] LPN) 0803 (Given - Provider: Spring Dacosta, RN) ibuprofen tablet 400 mg (COMPLETED) 400 mg, Oral, Once, On Sat06/30/23 at 1245, For 1 dose 1257 (Given [...] RN) 0803 (Medication Applied - Provider: Spring Dacosta, KORIN)1730 (Due: Medication Removed - Provider: Automatic Discharge Provider - Comment: Time automatically adjusted from order being discontinued) melatonin tablet 5 mg 5 mg, Oral, Nightly, First dose on 06/15/23 at 2100 2020 (Given - Provider: Naomy Morse RN) 2113 (Given - Provider: Jose Burns RN) melatonin tablet 5 mg (COMPLETED) 5 mg, [...] Every 6 hours PRN, headaches, Starting on Sat06/30/23 at 1800 1847 (Given - Provider: Fish [...] - Provider: Naomy Morse RN) sodium chloride ([place]) 0.65 % nasal spray 1 spray 1 [...] BE BASED ON THE PRIMARY CLINICAL RECORDS. [facility] [employer] [facility]. provides no warranty or guarantee of the accuracy or completeness of information in this document.
[2025-04-21 07:55] LABS: Hematocrit 38.0 % (40-54); Hemoglobin 12.9 g/dL (13.0-16.5); Mean Corp Hgb Conc 33.9 g/dL (32-36); Mean Corpuscular Volume 83.3 fL (80-94); Mean Platelet Vol. 10.2 fl (6.2-12.0); Platelet Count 230 K/mm3 (150-450); RBC Distribution Width CV 13.4 % (11.6-14.6); RBC Distribution Width SD 41.2 fl (35.1-43.9); Red Blood Count 4.56 M/mm3 (4.6-6.2); White Blood Count 4.1 K/mm3 (4.4-11.0)
[2025-04-21 08:16] LABS: AST(SGOT) 21 U/L (<=37); Alanine Aminotransfer ALT/SGPT 10 U/L (<=46); Albumin, Serum 3.7 g/dL (3.4-4.8); Alkaline Phosphatase 71 U/L (40-129); Anion Gap 8 (5-15); BUN 16 mg/dL (4-19); BUN/Creat Ratio 12.6 RATIO (10-20); Calcium,Total 9.1 mg/dL (7.6-11.0); Carbon Dioxide 24.4 mmol/L (21.0-32.0); Chloride 105 mmol/L (98-108); Globulin 4.8 g/dL (2.2-4.2); Glucose 83 mg/dL (70-99); Potassium 4.2 mmol/L (3.3-5.1)
== END ==
LOC: OLS.ACW200 05:00
PROVIDERS: Visit Provider Family Medicine
DX: F10.27 Alcohol dependence with alcohol-induced persisting dementia (principal); G47.00 Insomnia, unspecified; F17.210 Nicotine dependence, cigarettes, uncomplicated; G93.41 Metabolic encephalopathy
CPT/HCPCS: 36415; 80053; 85027